=== PATIENT | female | born 1950 | race Caucasian/White ===

== ENCOUNTER 2024-08-07 13:05 | Emergency (ER) | payer MEDICARE, SELFPAY ==
[2024-08-07] VITALS (8 sets, daily range): BP systolic 161–185; BP diastolic 72–106; PULSE 86–125; RESP 14–16; TEMP 36.6; O2SAT 94–97
--- NOTE | 2024-08-07 13:15 | DI.RAD_ITS ---
Exam(s) XR WRIST LT COMPLETE EXAM: XR WRIST LT COMPLETE CLINICAL HISTORY: pain. TECHNIQUE: 2D digital imaging was performed. Three views. COMPARISON: No exams were available for comparison FINDINGS: BONES: Transverse fracture through the distal radial metaphysis with severe posterior angulation and half shaft width displacement. There are comminuted fragments around the main fracture site as well as extension to the articular surface. The distal ulna and carpal bones appear intact. No bony dest ructive lesion is seen. JOINTS: The carpal bones are normally aligned. Severe degenerative changes at the 1st carpal metaca rpal joint. SOFT TISSUE: swelling IMPRESSION: Comminuted intra-articular fracture of the distal radius with posterior displacement and angulation. DATA REPOSITORY: RADIATION DOSE DELIVERED:
--- OUTSIDE RECORDS SUMMARY | 2024-08-07 13:34 | XMS_ITS | Encounter Summary ---
Author Organization [facility] Address [address] [place] [address] Care Team Providers Care [facility] Name Role Phone Clint Miramontes MD Primary Care Provider [phone] Reason for Visit * Reason Onset Date Comments Other 07/26/2024 Encounter Details Date Type Department Care Team (Late st Contact Info) Description 07/26/2024 Telephone [facility] Orthopedics & Sport Medicine [address] [place] [address] Reema Peoples PA-C [address] [facility] [address] [place], [place] [phone] Other Social History Tobacco Use Types Packs/Day Years Used Date Smoking Tobacco: Former Cigarettes 1 18.7 1 964 - 07/03/1982 Smokeless Tobacco: Never Comments:1981 quit Alcohol Use Standard Drinks/Week Comments No 0 (1 standard drink = 0.6 oz pur e alcohol) Overall Financial Resource Strain (CARDIA) Answe r Date Recorded How hard is it for you to pa y for the very basics like food, housing, medical care, and heating? Somewhat hard 11/07/2023 PHQ-2 Answer Date Recorded PHQ-2 SUBTOTAL 0 11/07/2023 Hunger Vital Sign Answer Date Recorded Within the past 12 months, y ou worried that your food would run out before you got the money to buy more. Never true 11/07/19 24 Within the past 12 months, t he food you bought just didn't last and you didn't have money to get more. Never true 11/07/2023 PRAPARE - Transportation Answer Date Re corded In the past 12 months, has l ack of transportation kept you from medical appointments or from getting medications? No 04/2024 In the past 12 months, has l ack of transportation kept you from meetings, work, or from getting things needed for daily living? No 11/07/2023 Housing Stability Vital Sign Answer Shubham e Recorded In the last 12 months, was t here a time when you were not able to pay the mortgage or rent on time? No 11/07/2023 In the last 12 months, how many places have you lived? 1 11/07/2023 In the last 12 months, was t here a time when you did not have a steady place to sleep or slept in a long term (including now)? No 11/07/2023 Interpersonal Safety Answer Date Record ed How often does anyone, minh bettencourt family, hit, punch or physically hurt you? 11/07/2023 How often does anyone, minh bettencourt family, insult, scream, curse or threaten to hurt you? 11/07/2023 Sex and Gender Information Value Date Recorded Sex Assigned at Not on file Gender Identity Female 03/09/2020 13:07 EDT Sexual Orientation Not on file documented as of this encounter Functional Status Functional Status Response Date of Assess ment Because of a physical, menta l, or emotional condition, does this person have difficulty doing errands alone such as visiting a doctor's office or shopping? No 05/15/2017 Cognitive Status Response Date of Assessm ent Because of a physical, menta l, or emotional condition, does this person have serious difficulty concentrating, remembering, or making decisions? No 05/15/2017 documented as of this encounter Miscellaneous Notes * Telephone Encounter - Liseth Painting - 07/26/2024 1033 EDT I called and left a voicemail for the patient to call to schedule follow up * Telephone Encounter - Christina Mcgrath RN - 07/26/2024 0958 EDT Per TE from 07/13 pt carla follow up with HH or one of the total joint surgeons per her preference after the MRI. So please schedule with HH, CB, or SG per pts preference. * Telephone Encounter - Liseth Painting - 07/26/2024 0948 EDT Patient has an MRI scheduled. Does the patient need a follow up or are you going to call the patient ? Thank you documented in this encounter Plan of Treatment Upcoming Encounters Date Type Department Care Team (Late st Contact Info) Description 08/10/2024 16:00 EDT Appointment [facility] MRI [address] [place], [place] [phone] 08/16/2024 14:00 EDT EMILIA [facility] OBGYN Ultrasound [address] [place] [phone] 08/29/2024 14:00 EDT Office Visit [facility] OBGYN [address] [place] [address] [phone] Ness Vilchis MD [address] [place] [address], [address] [place] [phone] 08/31/2024 16:00 EDT Office Visit [facility] Orthopedics & Sport Medicine [address], [address] [place], [place] [phone] Reema Peoples PA-C [address] [facility] [address] [place], [place] [phone] 09/01/2024 9:30 EDT Office Visit [facility] Rheumatology [address] [place] [address] [phone] Lin Grider MD [address] [place] [address] [facility] [address] [place] [phone] 11/08/2024 14:00 EST Office Visit [facility] Adult Hematology & Oncology [facility] [place] [address] Luz Maria Peter, GABRIEL [address] [facility], [facility] [address] [place] [phone] 11/22/2024 10:15 EST Office Visit [facility] Family Medicine - [facility] [address] [place] [address] [phone] Clint Miramontes MD [address] [place] [phone] documented as of this encounter Visit Diagnoses Not on filedocumented in this encounter Care Teams Hospital [facility] Relationship Specialty Start Date End Date Clint Miramontes MD [address] [place] [phone] PCP - General 08/23/19 documented as of this encounter
--- OUTSIDE RECORDS SUMMARY | 2024-08-07 13:34 | XMS_ITS | Clinical Summary ---
Author Organization [facility] Address [address] [place] [address] Care Team Providers Care Support Architect Name Role Phone Clint Miramontes MD Primary Care Provider [phone] Allergies Active Allergy Reactions Criticality Noted Date Comments Rosuvastatin Rash 05/15/2017 Other - See Comments High 06/05/2011 Wasp stings- swollen local reactions, no throat swelling Pravastatin Rash 05/15/2017 Medications Medication Sig Dispensed Refills Start Date End Date Status cholecalciferol, Vitamin D3, 25 mcg (1,000 unit) tablet Take 2 Tablets by mouth daily. Active inhalational spacing device (E-Z SPACER) Inhale 1 Device as directed 2 times daily. For use with Flovent inhaler. Dx: J44.9. 1 Device 01/20/2020 Active aspirin 81 mg EC tablet Take 1 Tablet by mouth daily. Active diazePAM (VALIUM) 2 mg tablet 1 tab PO bid PRN fying. 6 Tablet 3 04/03/2023 Active lovastatin (MEVACOR) 40 mg tablet TAKE TWO TABLETS BY MOUTH EVERY DAY 180 Tablet 3 09/11/2023 Active LORazepam (ATIVAN) 1 mg tablet TAKE ONE TABLET BY MOUTH AT BEDTIME NEEDED FOR ANXIETY MAXIMUM DAILY DOSE = 1 30 Tablet 3 04/25/2024 Active albuterol sulfate 90 mcg/actuation aero powdr breath act w/sensor Inhale 1 Puff as directed 6 times daily. 1 Each 3 05/19/2024 Active Additional Information Patient not taking.Reported on 07/05/2024 beclomethasone HFA (QVAR REDIHALER) 80 mcg/actuation inhaler Inhale 1 Puff as directed 2 times daily. 10.6 g 3 05/19/2024 Active Additional Information Patient not taking.Reported on 07/05/2024 Active Problems Problem Noted Date Diagnosed Date Intramural leiomyoma of uterus 07/19/2021 Other ovarian cyst, left side 07/19/2021 Aneurysm ([facility]) 10/06/2019 Chronic obstructive pulmonary disease ([facility]) 10/06/2019 Female bladder prolapse 10/06/2019 Impaired glucose tolerance 10/06/2019 LBBB (left bundle branch block) 10/06/2019 Age-related osteoporosis wit hout current pathological fracture 10/06/2019 Sleep disturbance 10/06/2019 Vitamin D deficiency 10/06/2019 Cerebral aneurysm, nonruptured 06/04/2010 Overview: Right PCOM s/p coil embolization 06/03/2010 Mixed hyperlipidemia 06/04/2010 Overview: On Crestor 06/2010 Anxiety 06/04/2010 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 ([facility]) 06/04/2010 Overview: 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 Clinical stage IIIa disease with numerous small lymph nodes above and below the diaphragm. No treatment at this time. Encounters Date Type Department Care Team Description 07/26/2024 Telephone [facility] Orthopedics & Sport Medicine [address], [address] [place] [address] Reema Peoples PA-C Other 07/13/2024 Telephone [facility] Orthopedics & Sport Medicine [address], [address] [place] [address] Reema Peoples PA-C Other 07/11/2024 Orders Only [facility] Rheumatology [address] [place] [address] Lin Grider MD 07/05/2024 14:00 EDT Office Visit [facility] Adult Hematology & Oncology [address] [place] [address] Luz Maria Peter NP History of lymphoma (Primary Dx) 07/05/2024 12:51 EDT - 07/05/2024 23:59 EDT Hospital Encounter [facility] Mammography [address] [place] [address] Encounter for screening mammogram for malignant neoplasm of breast Discharge Disposition: Home or Self Care 06/29/2024 Telephone [facility] Orthopedics & Sport Medicine [address], [address] [place], [place] [phone] Reema Peoples PA-C Other 06/17/2024 Telephone [facility] Orthopedics & Spine Medicine [address], [address] [place] [address] Reema Peoples PA-C Results 06/13/2024 15:00 EDT Office Visit [facility] Orthopedics & Sport Medicine [address] [place] [address] Reema Peoples PA-C Pain and swelling of left knee (Primary Dx) 05/19/2024 9:45 EDT [facility] [address] [address] Clint Miramontes MD 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) (Primary Dx); Primary osteoarthritis of left knee; Chronic obstructive pulmonary disease, unspecified COPD type (HCC-CMS) 05/19/2024 Telephone [facility] [address] [phone] Luz Maria Hdz, ATTILA Prior Auth, Medication from Last 3 Months Immunizations Name Administration Dates Next Due Covid-19 mRNA-LNP Va ccine (MODERNA COVID-19) PF 0.5 mL IM (12 yrs+) 11/19/2023 Covid-19 mRNA-LNP Bivalent V accine (PFIZER BIVALENT VACCINE) PF 0.3 mL IM (12 yrs+) 08/19/2022 Covid-19 subunit, rS-nanoparticle+Matrix-M1 Adjuvant Vaccine (NOVAVAX COVID-19) PF 0.5 mL IM (12 yrs+) 04/23/2023 Influenza Vaccine =>3yo Split IM 017,08/14/2016,07/08/2014,08/09,08/28/2012 Influenza Vaccine High Dose (FLUZONE HIGH DOSE) PF 0.7 ml IM (65 yrs+) 08/30/2022,08/28/2020,09/20/2018 Influenza Vaccine Quad (AFLU NIDA) PF 0.5 ml IM (3 yrs+) 08/18/2019,08/09/2015 Influenza Vaccine Quad High Dose (FLUZONE HIGH DOSE) PF 0.7 ml IM (65 yrs+) 08/13/2023 Pneumococcal Conjugate Vacci ne 13-Valent (PCV13) (PREVNAR-13) 0.5 mL IM (6 wks+) 10/19/2017 Pneumococcal Polysaccharide (PPSV23) Vaccine (PNEUMOVAX-23) =>2YO SQ/IM 10/03/2010 Tdap Vaccine =>7YO IM 11/02/2023,06/08/2013 Surgical History Surgery Date Site/Laterality Comments TONSILLECTOMY HERNIA REPAIR left groin LYMPH NODE BIOPSY left neck & node removal VAGINAL PROLAPSE REPAIR Medical History Medical History Date Comments Psychiatric problem anxiety Cancer ([facility]) lymphoma-marry marginal Coil insertion 06/2010 PCOM aneurysm Inguinal lymphadenopathy Chronic obstructive pulmonary disease ([facility]) 10/06/2019 Osteoporosis 10/06/2019 Aneurysm ([facility]) Hypercholesteremia Aneurysm of coronary artery 2009 inte rnal coronary artery Colon polyp Mental disorder Family History Medical History Relation Comments Hypertension Brother Hypertension Father Stroke Maternal Grandmother Pancreatic Cancer Maternal Uncle 1 Diabetes Maternal Uncle 2 Diabetes Mother Hypertension Mother Lung Cancer Mother Lymphoma Mother Breast Cancer Paternal Aunt 1 Liver Cancer Paternal Aunt 2 Breast Cancer Paternal Grandmother Stomach Cancer Paternal Uncle Relation Status Comments Brother Alive Father Maternal Grandmother Maternal Uncle 1 Maternal Uncle 2 Mother triple bypass Paternal Aunt 1 Paternal Aunt 2 Paternal Grandmother Paternal Uncle Social History Tobacco Use Types Packs/Day Years Used Date Smoking Tobacco: Former Cigarettes 1 18.7 1 964 - 07/03/1982 Smokeless Tobacco: Never Tobacco Cessation:Counseling Given: Not Answered Comments:1981 quit Alcohol Use Standard Drinks/Week Comments [...] place to sleep or slept in a skilled nursing (including now)? No 11/07/2023 Interpersonal Safety Answer Date Record ed How often does anyone, inclyimi bettencourt family, hit, punch or physically hurt you? 11/07/2023 How often does anyone, inclyimi bettencourt family, insult, scream, curse or threaten to hurt you? 11/07/2023 Sex and Gender Information Value Date Recorded Sex Assigned at Not on file Gender Identity Female 03/09/2020 13:07 EDT Sexual Orientation Not on file Obstetrics History Para Term AB IAB SAB Ectopic Multiple Livin g Live Births 2 2 2 2 2 Date Outcome GA Total Labor Labor/2nd/3rd Weight Sex Type Anes PTL Earline A1 A5 Name Clin 1973 Term 3374 g (7 lb 7 oz) F Vag-S pont Living 1980 Term 4196 g (9 lb 4 oz) M Vag-S pont Living Last Filed Vital Signs Vital Sign Reading Time Taken Comments Blood Pressure 138/78 07/05/2024 1340 EDT Pulse 65 07/05/2024 1340 EDT Temperature 36.2 ??C (97.2 ??F) 05/19/2024 0941 EDT Respiratory Rate 18 05/19/2024 0941 EDT Oxygen Saturation 99% 07/05/2024 1340 EDT Inhaled Oxygen Concentration - - Weight 42.9 kg (94 lb 9.6 oz) 07/05/2024 1340 ED T Height 146.1 cm (4' 9.5) 07/05/2024 1310 EDT Body Mass Index 20.12 07/05/2024 1310 EDT Plan of Treatment Upcoming Encounters Date Type Department Care Team (Late st Contact Info) Description 08/10/2024 16:00 EDT Appointment [facility] MRI [address] [place], [place] [phone] 08/16/2024 14:00 EDT EMIL[facility] OBGYN Ultrasound [address] [place] [phone] 08/29/2024 14:00 EDT Office Visit [facility] OBGYN [address] [place] [phone] Ness Vilchis MD [address] [place] [address], [address] [place] [phone] 08/31/2024 16:00 EDT Office Visit [facility] Orthopedics & Sport Medicine [address] [place], [place] [phone] Reema Peoples PA-C [address] [facility] [address] [place], [place] [phone] 09/01/2024 9:30 EDT Office Visit [facility] Rheumatology [address] [place], [place] [phone] Lin Grider MD [address] [place] [address] [address] [place] [address] 11/08/2024 14:00 EST Office Visit [facility] Adult Hematology & Oncology [facility] [address] [place], [place] [phone] Luz Maria Peter, GABRIEL [address] [facility], [facility] [address] [place] [phone] 11/22/2024 10:15 EST Office Visit [facility] Family Medicine - [facility] [address] [place], [place] [phone] Clint Miramontes MD [address] [place] [address] Health Maintenance Due Date Last Done Comments Copd Action Plan 1949 Lung Function Test (Spirometry) 1949 Shingles Immunization (1 of 2) 1968 Cologuard (Colon Cancer Screening) 1994 FIT Test (Colon Cancer Screening) 1994 Sigmoidoscopy (Colon Cancer Screening) 1994 RSV Immunization ( o r 60+ Years) (1 - 1-dose 60+ series) 2009 Pneumococcal Immunization (6 5+) (3 of 3 - PPSV23 or PCV20) 12/14/2017 10/19/2017, 10/03/2010 COVID-19 Vaccine (4 - 2023-2 5 season) 2024 11/19/2023, 04/23/2023, 08/19/2022 Influenza Immunization (Adul t) (#1) 2024 08/13/2023, 08/30/2022, 08/28/2020, Additional history exists Social Determinants Of Healt h (SDOH) 11/07/2024 11/07/2023, 04/21/2022 Depression Screening 11/19/2024 11/19/2023, 11/07/19 24 Fall Risk Screening 11/19/2024 11/19/2023, 08/18/2022, 04/21/2022, Additional history exists Preventive Care Visit 11/19/2025 11/19/2023 Lipid Profile Screening (Cholesterol) 06/29/2028 06/29/2023, 03/25/2023, 11/21/2021, Additional history exists Colonoscopy (Colon Cancer Screening) 09/20/2029 09/20/2019, 03/14/2011 Colorectal Cancer Screening 09/20/2029 Tetanus (Adult) Immunization 11/02/2033 11/02/2023, 06/08/2013 Hepatitis C Screen Completed 2010 Advance Directive Completed 04/21/2022 Osteoporosis Screening Completed 3, 06/14/2021, 06/22/2019, Additional history exists Pertussis (Adult) Immunization Completed 11/02/2023 , 06/08/2013 Medical Devices Implanted Type Area Travel Assistant Device Identifier Shelf Expiration Date Model / Serial / Lot Gdc Coils-Mr Cond To 1.5/3t Description:Brain coils 06/21 10, GDC x 5, Trufill x 7, all safe to 3T GW GDC: A patient with Hartsel Detachable Coils can be safely scanned immediately after placement of the coils, under the following conditions: Static magnetic field of 1.5 or 3.0 Ross[place]. Spatial gradient field up to 2500 Gauss/cm (25 Rossana/m) Normal operational mode for gradients and SAM (maximum whole body averaged specific absorption rate (SAM) of lower than 2.0 W/kg and maximumhead SAM of lower than 3.2 W/kg) for a total active MR scan time (with RFexposure) of 15 minutes or less per scan sequence (per PushToTest; RD 02/01/20) Trufill: the Trufill DCS Orbit Detachable Coil has been shown to be MRI safe at field strengths of 3.0 Ross[place] or less, and a maximum whole body averaged specific absorption rate (SAM) of 2.0W/kg for 20 min of MRI. (per PushToTest; RD 02/01/20) Procedures Procedure Name Priority Date/Time Associated Diagnosis Comments COMPLETE BLOOD COUNT AND DIFFERENTIAL Routine 07/05/2024 13:52 EDT History of lymphoma COMPREHENSIVE METABOLIC PANEL (CMP) Routine 07/05/2024 13:52 EDT History of lymphoma LDH Routine 07/05/2024 13:52 EDT History of lymphoma MA BREAST SCREENING ELO BILATERAL Routine 07/05/2024 13:18 EDT Encounter for screening mammogram for malignant neoplasm of breast PATHOLOGY REVIEW FLUID OTHER Today 06/13/2024 15:18 EDT Pain and swelling of left knee SYNOVIAL FLUID DIFFERENTIAL Today 06/13/2024 15:18 EDT Pain and swelling of left knee LYME DISEASE, PCR, SYNOVIAL FLD Routine 06/13/2024 15:18 EDT Pain and swelling of left knee SYNOVIAL FLUID CELL COUNT Routine 06/13/2024 15:18 EDT Pain and swelling of left knee CRYSTAL ANALYSIS FLUID ONLY Routine 06/13/2024 15:18 EDT Pain and swelling of left knee SYNOVIAL CELL COUNT Routine 06/13/2024 1 5:18 EDT Pain and swelling of left knee LARGE JOINT INJECTION/ARTHROCENTE SIS Routine 06/13/2024 15:00 EDT Pain and swelling of left knee LIPID PROFILE (INCLUDES CHOLESTEROL, TRIGLYCERIDES, HDL, LDL) Routine 06/29/2023 16:17 EDT Weight loss Elevated pancreatic enzyme DXA BONE DENSITY Routine 06/18/2023 14:4 6 EDT Age-related osteoporosis without current pathological fracture COLONOSCOPY PROCEDURE Routine 09/20/2019 HEPATITIS C AB W REFLEX TO HCV RNA BY PCR Routine 2010 from Last 3 Months or Most Recently Relevant to Health Maintenance Results * (ABNORMAL) COMPLETE BLOOD COUNT AND DIFFERENTIAL (07/05/2024 13:52 EDT) WBC 6.16 4.00 - 12.40 K/cmm 07/05/2024 13:59 EDT [facility] RBC 4.63 3.86 - 5.04 M/cmm 07/05/2024 13:59 EDT [facility] Hemoglobin 13.5 11.6 - 15.2 g/dL 07/05/2024 13:59 EDT [facility] HCT 41.7 34.9 - 44.4 % 07/05/2024 13:59 EDT [facility] MCV 90 81 - 98 fL 07/05/2024 13:59 EDT [facility] MCH 29.2 26.7 - 33.3 pg 07/05/2024 13:59 EDT [facility] MCHC 32.4 32.1 - 35.9 g/dL 07/05/2024 13:59 EDT [facility] RDW-CV 13.0 <14.7 % 07/05/2024 13:59 EDT [facility] RDW-SD 43.2 <50.4 fl 07/05/2024 13:59 EDT [facility] PLT 209 141 - 377 K/cmm 07/05/2024 13:59 EDT [facility] MPV 8.8(L) 9.5 - 12.7 fL 07/05/2024 13:59 EDT [facility] % Neutrophils 60.7 % 07/05/2024 13:59 EDT [facility] % Lymphocytes 29.4 % 07/05/2024 13:59 EDT [facility] % Monocytes 7.1 % 07/05/2024 13:59 EDT [facility] % Eosinophils 1.8 % 07/05/2024 13:59 EDT [facility] % Basophils 0.8 % 07/05/2024 13:59 EDT [facility] % Immature Grans 0.2 <0.9 % 07/05/20 13:59 EDT [facility] Absolute Neutrophils 3.74 2.20 - 8.85 K/cmm 07/05/2024 13:59 EDT [facility] Absolute Lymphocytes 1.81 1.09 - 3.30 K/cmm 07/05/2024 13:59 EDT [facility] Absolute Monocytes 0.44 0.10 - 0.80 K/cmm 07/05/2024 13:59 EDT [facility] ONCOLOGY [facility] Absolute Eosinophils 0.11 0.03 - 0.61 K/cmm 07/05/2024 13:59 EDT [facility] ABS Basophils 0.05 0.01 - 0.11 K/cmm 07/05/2024 13:59 EDT [facility] Absolute Immature Grans 0.01 0.00 - 0.06 K/cmm 07/05/2024 13:59 EDT [facility] Type of Differential: Auto 07/05/2024 13:59 EDT [facility] Blood VENOUS BLOOD / Unknown Venipuncture / Unknown 07/05/2024 13:52 EDT 07/05/2024 13:52 EDT Luz Maria Peter NP PACKAGES & DNA PRO BE ORDERABLES [facility] [place] Office Building [address], [address] * LDH (07/05/2024 13:52 EDT) LDH 219 120 - 246 U/L 07/05/2024 17:48 EDT [facility] Blood VENOUS BLOOD / Unknown Venipuncture / Unknown 07/05/2024 13:52 EDT 07/05/2024 13:52 EDT Luz Maria Peter VACUUM FORMING MACHINE OPERATOR CHEMISTRY & BLOOD GAS ORDERABLES [facility] [address] [place] [address] * COMPREHENSIVE METABOLIC PANEL (CMP) (07/05/2024 13:52 EDT) Sodium 138 136 - 145 mmol/L 07/05/2024 18:08 [facility] Potassium 4.3 3.5 - 5.0 mmol/L 07/05/2024 18:08 [facility] Chloride 101 96 - 110 mmol/L 07/05/2024 18:08 [facility] CO2 Total 30 22 - 32 mmol/L 07/05/2024 18:08 [facility] Glucose 76 70 - 99 mg/dl 07/05/2024 18:08 [facility] BUN 15 10 - 26 mg/dL 07/05/2024 18:08 [facility] Creatinine 0.66 0.52 - 1.04 mg/dL 07/05/2024 18:08 [facility] eGFR 91 >60 mL/min/1.7 3m2 07/05/2024 18:08 [facility] Total Protein 7.2 6.3 - 8.2 g/dL 07/05/2024 18:08 [facility] Albumin 4.7 3.4 - 4.9 g/dL 07/05/2024 18:08 [facility] Alkaline Phosphatase 56 38 - 126 U/L 07/05/2024 18:08 [facility] AST 24 15 - 46 U/L 07/05/2024 18:08 [facility] ALT 17 <35 U/L 07/05/2024 18:08 [facility] Bilirubin, Total 0.8 <1.4 mg/dL 07/05/20 24 18:08 [facility] Calcium 9.5 8.5 - 10.5 mg/dL 07/05/2024 18:08 [facility] Albumin/Globulin Ratio 1.9 1.0 - 2.5 07/05/2024 18:08 [facility] Anion Gap 7 5 - 14 mmol/L 07/05/2024 18:08 [facility] Blood VENOUS BLOOD / Unknown Venipuncture / Unknown 07/05/2024 13:52 EDT 07/05/2024 13:52 EDT Luz Maria Montaño [place] RIOS CHEMISTRY & BLOOD GAS ORDERABLES [facility] [address] [place] [address] * MA BREAST SCREENING ELO BILATERAL (07/05/2024 13:18 EDT) Anatomical Region Laterality Modality Breast Bilateral Mammography 07/06/2024 9:05 EDT Impressions 07/06/2024 9:05 EDT Negative, no evidence of malignancy. RECOMMENDATION: Routine screening mammography is recommended. OVERALL ASSESSMENT: BI-RADS 1: Negative These results will be communicated to your patient via a lay letter from Radiology. If any additional imaging is needed we will contact your patient directly. [address] [address] [id number] Narrative 07/06/2024 9:05 EDT MA BREAST SCREENING ELO BILATERAL ??07/05/2024 1:08 PM History: bilateral screening Comparison: ??Comparison has been made to previous images . ? Technique: Routine 3D tomosynthesis with synthesized 2D views with CAD Breast Composition: There are scattered areas of fibroglandular density. Bilateral Breast Findings: ??No significant masses, calcifications or other abnormalities are seen. Resulting Agency Comment [id number] Procedure Note Reji Carroll MD - 07/06/2024 MA BREAST SCREENING ELO BILATERAL 07/05/2024 1:08 PM History: bilateral screening Comparison: Comparison has been made to previous images . Technique: Routine 3D tomosynthesis with synthesized 2D views with CAD Breast Composition: There are scattered areas of fibroglandular density. Bilateral Breast Findings: No significant masses, calcifications or otherabnormalities are seen. IMPRESSION Negative, no evidence of malignancy. RECOMMENDATION: Routine screening mammography is recommended. OVERALL ASSESSMENT: BI-RADS 1: Negative These results will be communicated to your patient via a lay letter fromRadiology. If any additional imaging is needed we will contact yourpatient directly. [address] [address] [id number] Clint Miramontes MD [facility] MAMMOGRAPHY PRABHU CASPER * LYME DISEASE, PCR, SYNOVIAL FLD (06/13/2024 15:18 EDT) SPECIMEN SOURCE Left knee 18:38 EDT [facility] B. burgdorferi PCR Negative Negative 2023 18:38 EDT [facility] B. mayonii PCR Negative Negative 06/16/2024 18:38 EDT [facility] B. Garinii/B.afzelii PCR Negative Negative 06/16/2024 18:38 EDT [facility] LYME FLUID COMMENT SEE NOTE 2023 18:38 EDT [facility] Comment: If clinical features of illness are highly indicative of Lyme neuroborreliosis, additional serological testing would be recommended. ADDITIONAL INFORMATION This test was developed and its performance characteristics determined by [facility] in a manner consistent with CLIA requirements. This test has not been cleared or approved by the U.S. Food and Drug Administration. Test Performed by: [address] [address] Aerospace Assembler: Lizette Mendez Ph.D.; CLIA# [id number] Fluid SYNOVIAL FLUID / Unknown 06/13/2024 15:18 EDT 06/13/2024 15:18 EDT Reema Peoples PA-C CHEMISTRY & BLOOD GAS ORDERABLES [address] [address] * PATHOLOGY REVIEW FLUID OTHER (06/13/2024 15:18 EDT) Path Review Fluid, other SYNOVIAL FLUID REVIEW No malignant cells identified. Cells counted as others are compatible with synovial lining cells. ??Agree with the reported differential showing mixed acute and chronic inflammation. Darrin Borrego MD 06/14/2024 11:55 06/14/2024 11:56 EDT [facility] Fluid SYNOVIAL FLUID / Unknown 06/13/2024 15:18 EDT 06/13/2024 15:18 EDT Reema Peoples PA-C HEMATOLOGY & PF4 ORDERABLES Performing Organization Address City/[facility]/ZIP Co de Phone Number [facility] [address] [place] [address] * (ABNORMAL) SYNOVIAL FLUID DIFFERENTIAL (06/13/2024 15:18 EDT) Neutrophils, Synovial Fluid 24 10 - 24 % 06/13/2024 18:43 EDT [facility] Lymphocytes, Synovial Fluid 55(H) 10 - 20 % 06/13/2024 18:43 EDT [facility] Glynn/Macro Synovial Fluid 20(L) 55 - 75 % 06/13/2024 18:43 EDT [facility] Other Cells, Synovial fluid 1 % 06/13/2024 18:43 EDT [facility] Fluid SYNOVIAL FLUID / Unknown 06/13/2024 15:18 EDT 06/13/2024 15:18 EDT Reema Peoples PA-C GEN LAB UNIT COLLECT ORDERABLES Performing Organization Address City/[facility]/ZIP Co de Phone Number [facility] [address] [place] [phone] * (ABNORMAL) SYNOVIAL FLUID CELL COUNT (06/13/2024 15:18 EDT) RBC, Synovial Fluid 10,000 /cmm 06/13/2024 18:10 EDT [facility] Nucleated Cells 2,654(H) <=200 /cmm 06/13/2024 18:10 EDT [facility] Comment, Synovial Fluid Yellow Slightly bloody 06/13/2024 18:10 EDT [facility] Fluid SYNOVIAL FLUID / Unknown 06/13/2024 15:18 EDT 06/13/2024 15:18 EDT Reema Peoples PA-C GEN LAB UNIT COLLECT ORDERABLES Performing Organization Address [facility] Co de Phone Number [facility] [address] [place] [address] * CRYSTAL ANALYSIS FLUID ONLY (06/13/2024 15:18 EDT) Crystals Both intracellular and extracellular calcium pyrophosphate crystals present 06/13/2024 18:53 EDT [facility] Fluid SYNOVIAL FLUID / Unknown 06/13/2024 15:18 EDT 06/13/2024 15:18 EDT Reema Peoples PA-C GEN LAB UNIT COLLECT ORDERABLES Performing Organization Address [facility] de Phone Number [facility] [address] [place] [address] * [place] ARTHROCENTESIS ASPIR&/INJ MAJOR JT/BURSA W/O US (06/13/2024 15:00 EDT) Narrative [facility] POINT OF CARE - 06/13/2024 15:00 EDT Reema Peoples PA-C ? 06/13/2024 15:32 Large Joint Injection/Arthrocentesis: L knee on 06/13/2024 15:00 Indications: pain Details: 22 G needle, anterolateral approach Medications: 40 mg triamcinolone acetonide 40 mg/mL; 4 mL lidocaine (PF) 10 mg/mL (1 %) Aspirate: 30 mL yellow and clear Outcome: tolerated well, no immediate complications Procedure, treatment alternatives, risks and benefits explained, specific risks discussed. Consent was given by the patient. Immediately prior to procedure a time out was called to verify the correct patient, procedure, equipment, cell support operator and site/side marked as required. Patient was prepped and draped in the usual sterile fashion. Reema Peoples PA-C PROCEDURE/[place] NOR SURGICAL ORDERABLES Performing Organization Address [facility] Co de Phone Number [facility] POINT OF CARE * (ABNORMAL) LIPID PROFILE (INCLUDES CHOLESTEROL, TRIGLYCERIDES, HDL, LDL) (06/29/2023 16:17 EDT) Cholesterol 175 <200 mg/dL 06/30/2023 17:49 EDT [facility] Comment:Note that therapeuti c goals will differ between patients based on cardiac risk factors and current medical therapy. HDL 47(L) >=50 mg/dl 06/30/2023 17:49 EDT [facility] Comment:Note that therapeuti c goals will differ between patients based on cardiac risk factors and current medical therapy. LDL, Calculated 102 <160 mg/dL 17:49 EDT [facility] Comment:Note that therapeuti c goals will differ between patients based on cardiac risk factors and current medical therapy. Triglyceride 131 <=150 mg/dL 06/30/2023 17:49 EDT [facility] Comment:Note that therapeuti c goals will differ between patients based on cardiac risk factors and current medical therapy. Chol/HDL Ratio 3.7 See Note 06/30/2023 17:49 EDT [facility] Comment: NOTE: Desirable Ratio = <4.1 Patient At Risk Ratio = >5.0(Males) ?>6.0(Females) Non HDL Cholesterol 128 <160 mg/dL 06/30/2023 17:49 EDT [facility] Comment:Note that therapeuti c goals will differ between patients based on cardiac risk factors and current medical therapy. Blood VENOUS BLOOD / Unknown Venipuncture / Unknown 06/29/2023 16:17 EDT 06/29/2023 16:17 EDT Clint Miramontes MD CHEMISTRY & BLOOD GA S ORDERABLES [facility] [address] [place] [address] * DXA BONE DENSITY (06/18/2023 14:46 EDT) Anatomical Region Laterality Modality DEXA Narrative 06/21/2023 19:42 EDT Table formatting from the original result was not included. Indication: osteopenia; monitoring treatment; height loss; history of glucocorticoids; cancer; asthma or emphysema; Accession number: [id number] Clinical Information Provided by Patient: Has taken Glucocorticoids ?? Is being treated for osteoporosis ?? Has used the following medications: Boniva (i.e. ibandronate), Reclast (i.e. zoledronate), Vitamin D, Calcium Has the following medical conditions: Asthma or Emphysema, Cancer, Lymphoma Patient maximum height was 59.75 Menopause Age 50 Drinks caffeinated beverages ?? Onset of menses at age 12 Number of children 2 Bone Density: Exam date 06/18/2023 Region BMD (g/cm2) T-score Z-score Classification AP Spine(L1-L4) 0.875 -1.6 ??0.8 Osteopenia Femoral Neck(Left) 0.509 -3.1 -1.0 Osteoporosis Total Hip(Left) 0.681 -2.1 -0.4 Osteopenia Femoral Neck(Right) 0.603 -2.2 -0.2 Osteopenia Total Hip(Right) 0.754 -1.5 ??0.2 Osteopenia Femoral Neck Mean 0.556 -2.6 -0.6 Osteoporosis Total Hip Mean 0.717 -1.8 -0.1 Osteopenia World Health Organization criteria for BMD impression classify patients as Normal (T-score at or above -1.0), Osteopenia (T-score between -1.0 and -2.5), or Osteoporosis (T-score at or below -2.5). ?? 10-year Fracture Risk: FRAX not reported because: ??Some T-score for Spine Total or Hip Total or Femoral Neck at or below -2.5 ??Treated for osteoporosis Previous Exams: ?? Region Exam Date Age BMD (g/cm2) T-score BMD Change vs. Baseline BMD Change vs. Previous AP Spine (L1-L4) 06/18/2023 73 0.875 -1.6 0.088 (11.2%)* 0.047 (5.7%)* 06/13/2021 71 0.828 -2.0 0.041 (5.2%)* -0.028 (-3.2%)* 06/22/2019 69 0.855 -1.7 0.068 (8.7%)* 0.072 (9.2%)* 02/19/2016 65 0.784 -2.4 -0.003 (-0.4%) -0.003 (-0.4%) 07/08/2011 61 0.787 -2.4 ?? Total Hip(Left) 06/18/2023 73 0.681 -2.1 -0.041 (-5.7%)* -0.023 (-3.2%) 06/13/2021 71 0.704 -2.0 -0.019 (-2.6%) 0.014 (2.1%) 06/22/2019 69 0.690 -2.1 -0.033 (-4.5%)* 0.003 (0.5%) 02/19/2016 65 0.686 -2.1 -0.036 (-5.0%)* -0.036 (-5.0%)* 07/08/2011 61 0.723 -1.8 ?? Total Hip(Right) 06/18/2023 73 0.754 -1.5 -0.062 (-7.5%)* -0.013 (-1.7%) 06/13/2021 71 0.766 -1.4 -0.049 (-6.0%)* -0.049 (-6.0%)* 06/22/2019 69 0.815 -1.0 ?? *Denotes significance at 95% confidence level, LSC for AP Spine = 0.022 g/cm2, ??LSC for Total Hip = 0.027 g/cm2 ? Impression: The patient has osteoporosis, based on the Left Femoral Neck T-score. The patient has risk factors, including: history of glucocorticoid therapy. No significant bone loss was observed. Discussion: PATIENT UNDER TREATMENT WITH NO SIGNIFICANT BMD LOSS SINCE LAST EXAM. In an untreated patient, BMD typically declines with age. ??A lack of decline or gain is usually a sign that treatment is efficacious and fracture risk is reduced. It is important to ask patients whether they are taking their medications and to encourage continued and appropriate compliance with their osteoporosis therapies to reduce fracture risk. It is also important to review their risk factors and encourage appropriate calcium and vitamin D intakes, exercise, fall prevention and other lifestyle measures. *As indicated, always consider the FRAX assessment with all other relevant clinical risk factors. Follow-Up: Consider a repeat BMD and Vertebral Fracture Assessment (VFA) exam in 2 years or sooner if medically necessary, to reassess this patient's status. Reported by: ??Trent Burgess MD, on 06/18/2023 2:43:00 PM. Lin Grider MD IMG DEXA ORDERABLES * COLONOSCOPY PROCEDURE (09/20/2019) Colonoscopy Colonoscopy, External Comment:Normal, repeat in 10 yrs Anatomical Region Laterality Modality Endoscopy Historical Provider GI PROCEDURE PRABHU CASPER * HEPATITIS C AB W REFLEX TO HCV RNA BY PCR (2010) Hepatitis C Ab negative Blood VENOUS BLOOD / Unknown 2010 Historical Provider CHEMISTRY & BLOOD GAS ORDERABLES from Last 3 Months or Most Recently Relevant to Health Maintenance Advance Directives For more information, please contact: [phone] * Full Code (Latest Code Status on File) Date Activated Date Inactivated Comments 06/06/2011 9:46 06/06/2011 18:23 * Full Code Date Activated Date Inactivated Comments 06/03/2010 13:40 06/04/2010 14:18 Care Teams Support Architect Relationship Specialty Start Date End Date Clint Miramontes MD [address] [place] [id number] PCP - General 08/23/19
--- OUTSIDE RECORDS SUMMARY | 2024-08-07 13:34 | XMS_ITS | Referral Summary ---
Author Organization [facility] Address [address] [place] [address] Care Team Providers Care Oil Well Driller Name Role Phone Clint Miramontes MD Primary Care Provider [phone] Encounters Date Type Department Care Team Description 07/26/2024 Telephone [facility] Orthopedics & Sport Medicine [address] [place], [place] [phone] Reema Peoples PA-C Other 07/13/2024 Telephone [facility] Orthopedics & Sport Medicine [address] [place], [place] [phone] Reema Peoples PA-C Other 07/11/2024 Orders Only [facility] Rheumatology [address] [place] [address] Lin Grider MD 07/05/2024 12:51 EDT - 07/05/2024 23:59 EDT Hospital Encounter [facility] Mammography [address] [place] [address] Encounter for screening mammogram for malignant neoplasm of breast Discharge Disposition: Home or Self Care 07/05/2024 14:00 EDT Office Visit [facility] Adult Hematology & Oncology [address] [place] [address] Luz Maria Peter NP History of lymphoma (Primary Dx) 06/29/2024 Telephone [facility] Orthopedics & Sport Medicine [address], [address] [place] [address] Reema Peoples PA-C Other 06/17/2024 Telephone [facility] Orthopedics & Spine Medicine [address], [address] [place], [place] [address] Reema Peoples PA-C Results 06/13/2024 15:00 EDT Office Visit [facility] Orthopedics & Sport Medicine [address] [facility], [place] [phone] Reema Peoples PA-C Pain and swelling of left knee (Primary Dx) 05/19/[address] [address] Luz Maria Hdz RN Prior Auth, Medication 05/19/2024 9:45 EDT Office Visit [address] [address] Clint Miramontes MD 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 ([facility]) (Primary Dx); Primary osteoarthritis of left knee; Chronic obstructive pulmonary disease, unspecified COPD type ([facility]) from Last 3 Months Allergies Active Allergy Reactions Criticality Noted Date [...] Other ovarian cyst, left side 07/19/2021 Aneurysm ([facility]) 10/06/2019 Chronic obstructive pulmonary disease ([facility]) 10/06/2019 Female bladder prolapse 10/06/2019 Impaired glucose tolerance 10/06/2019 LBBB (left bundle branch block) 10/06/2019 Age-related osteoporosis wit hout current pathological fracture 10/06/2019 Sleep disturbance 10/06/2019 Vitamin D deficiency 10/06/2019 Cerebral aneurysm, nonruptured 06/04/2010 Overview: Right PCOM s/p coil embolization 06/03/2010 Mixed hyperlipidemia 06/04/2010 Overview: On Crestor 06/2010 Anxiety 06/04/2010 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 ([facility]) 06/04/2010 Overview: 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 Clinical stage IIIa disease with numerous small lymph nodes above and below the diaphragm. No treatment at this time. Immunizations Name Administration Dates Next Due Covid-19 [...] SQ/IM 10/03/2010 Tdap Vaccine =>7YO IM 11/02/2023,06/08/2013 Social History Tobacco Use Types Packs/Day Years [...] place to sleep or slept in a detention (including now)? No 11/07/2023 Interpersonal Safety Answer Date Record ed How often does anyone, lambertoyimi rut family, hit, punch or physically hurt you? 11/07/2023 How often does anyone, lambetroyimi rut family, insult, scream, curse or threaten to hurt you? 11/07/2023 Sex and Gender Information Value Date Recorded Sex Assigned at Not on file Gender Identity Female 03/09/2020 13:07 EDT Sexual Orientation Not on file Last Filed Vital Signs Vital Sign Reading [...] Body Mass Index 20.12 07/05/2024 1310 EDT Functional Status Functional Status Response Date of [...] concentrating, remembering, or making decisions? No 05/15/2017 Plan of Treatment Upcoming Encounters Date Type Department Care Team (Late st Contact Info) Description 08/10/2024 16:00 EDT Appointment [facility] MRI [address] [place] [address] 08/16/2024 14:00 EDT EMILIA [facility] OBGYN Ultrasound [address] [place] [address] 08/29/2024 14:00 EDT Office Visit [facility] OBGYN [address] [place] [address] Ness Vilchis MD [address] [place], [place] [address]A, [address] [place] [phone] 08/31/2024 16:00 EDT Office Visit [facility] Orthopedics & Sport Medicine [address] [place] [address] Reema Peoples, PA-C [address] [facility] [address] [place] [address] 09/01/2024 9:30 EDT Office Visit [facility] Rheumatology [address] [place] [phone] Lin Grider MD [address] [place] [address] [address] [place] [address] 11/08/2024 14:00 EST Office Visit [facility] Adult Hematology & Oncology [address] [place] [address] Luz Maria Peter, GABRIEL [address] [place], [place] [address] [address] [place] [address] 11/22/2024 10:15 EST Office Visit [facility] Family Medicine - [place] [address] [place] [address] Clint Miramontes MD [address] [place] [phone] Medical Devices Implanted Type Area Ancillary Services Manager Device Identifier Shelf Expiration Date Model / Serial / Lot Gdc Coils-Mr Cond To 1.5/3t Description:Brain coils 06/21 10, GDC x 5, Trufill x 7, all safe to 3T GW GDC: A patient with [place] Detachable Coils can be safely scanned immediately [...] minutes or less per scan sequence (per [employer]; RD 02/01/20) Trufill: the Trufill DCS Orbit Detachable Coil has been shown to be MRI safe at field strengths of 3.0 [place] or less, and a maximum whole body averaged specific absorption rate (SAM) of 2.0W/kg for 20 min of MRI. (per [employer]; RD 02/01/20) Procedures Procedure Name Priority Date/Time [...] 4.00 - 12.40 K/cmm 07/05/2024 13:59 EDT [facility] HEMATOLOGY & ONCOLOGY [facility] RBC 4.63 3.86 - 5.04 M/cmm 07/05/2024 13:59 EDT [facility] HEMATOLOGY & ONCOLOGY [facility] Hemoglobin 13.5 11.6 - 15.2 g/dL 07/05/2024 13:59 EDT [facility] HEMATOLOGY & ONCOLOGY [facility] HCT 41.7 34.9 - 44.4 % 07/05/2024 13:59 EDT [facility] HEMATOLOGY & ONCOLOGY [facility] MCV 90 81 - 98 fL 07/05/2024 13:59 EDT [facility] HEMATOLOGY & ONCOLOGY [facility] MCH 29.2 26.7 - 33.3 pg 07/05/2024 13:59 EDT [facility] HEMATOLOGY & ONCOLOGY [facility] MCHC 32.4 32.1 - 35.9 g/dL 07/05/2024 13:59 EDT [facility] & ONCOLOGY [facility] RDW-CV 13.0 <14.7 % 07/05/2024 13:59 EDT [facility] RDW-SD 43.2 <50.4 fl 07/05/2024 13:59 EDT [facility] & ONCOLOGY [facility] PLT 209 141 - 377 K/cmm 07/05/2024 13:59 EDT [facility] MPV 8.8(L) 9.5 - 12.7 fL 07/05/2024 13:59 T [facility] HEMATOLOGY & ONCOLOGY [facility] % Neutrophils 60.7 % 07/05/2024 13:59 T [facility] % Lymphocytes 29.4 % 07/05/2024 13:59 EDT [facility] HEMATOLOGY ONCOLOGY [facility] % Monocytes 7.1 % 07/05/2024 13:59 EDT [facility] HEMATOLOGY & ONCOLOGY [facility] % Eosinophils 1.8 % 07/05/2024 13:59 EDT [facility] HEMATOLOGY & ONCOLOGY [facility] % Basophils 0.8 % 07/05/2024 13:59 T [facility] & ONCOLOGY [facility] % Immature Grans 0.2 <0.9 % 07/05/20 13:59 T [facility] Absolute Neutrophils 3.74 2.20 - 8.85 K/cmm 07/05/2024 13:59 T [facility] HEMATOLOGY & ONCOLOGY [facility] Absolute Lymphocytes 1.81 1.09 - 3.30 K/cmm 07/05/2024 13:59 EDT [facility] Absolute Monocytes 0.44 0.10 - 0.80 K/cmm 07/05/2024 13:59 T [facility] & ONCOLOGY [facility] Absolute Eosinophils 0.11 0.03 - 0.61 K/cmm 07/05/2024 13:59 EDT [facility] ONCOLOGY [facility] ABS Basophils 0.05 0.01 - 0.11 K/cmm 07/05/2024 13:59 T [facility] & ONCOLOGY [facility] Absolute Immature Grans 0.01 0.00 - 0.06 K/cmm 07/05/2024 13:59 EDT [facility] HEMATOLOGY & ONCOLOGY [facility] Type of Differential: Auto 07/05/2024 13:59 EDT [facility] HEMATOLOGY & ONCOLOGY [facility] Blood VENOUS BLOOD / Unknown Venipuncture / Unknown 07/05/2024 13:52 EDT 07/05/2024 13:52 EDT Luz Maria Peter TAX RECORD CLERK PACKAGES & DNA PRO BE ORDERABLES [facility] HEMATOLOGY & ONCOLOGY [facility] Medical Office [address], [address] * LDH (07/05/2024 13:52 EDT) Pathologist [facility] LDH 219 120 - 246 U/L 07/05/2024 17:48 EDT LABORATORY SERVICES Blood VENOUS BLOOD / Unknown Venipuncture / Unknown 07/05/2024 13:52 EDT 07/05/2024 13:52 EDT Luz Maria Peter TAX RECORD CLERK CHEMISTRY & BLOOD GAS ORDERABLES [facility] [address] [place] [address] * COMPREHENSIVE METABOLIC PANEL (CMP) (07/05/2024 13:52 EDT) Sodium 138 136 - 145 mmol/L 07/05/2024 18:08 [facility] LABORATORY SERVICES Potassium 4.3 3.5 - 5.0 mmol/L 07/05/2024 18:08 [facility] LABORATORY SERVICES Chloride 101 96 - 110 mmol/L 07/05/2024 18:08 [facility]ORY SERVICES CO2 Total 30 22 - 32 mmol/L 07/05/2024 18:08 [facility]ORY SERVICES Glucose 76 70 - 99 mg/dl 07/05/2024 18:08 [facility] LABORATORY SERVICES BUN 15 10 - 26 mg/dL 07/05/2024 18:08 [facility]OR[facility]ORY SERVICES Creatinine 0.66 0.52 - 1.04 mg/dL 07/05/2024 18:08 [facility] LABORATORY SERVICES eGFR 91 >60 mL/min/1.7 3m2 07/05/2024 18:08 [facility] LABORATORY SERVICES Total Protein 7.2 6.3 - 8.2 g/dL 07/05/2024 18:08 [facility] LABORATORY SERVICES Albumin 4.7 3.4 - 4.9 g/dL 07/05/2024 18:08 [facility] LABORATORY SERVICES Alkaline Phosphatase 56 38 - 126 U/L 07/05/2024 18:08 [facility]ORY SERVICES AST 24 15 - 46 U/L 07/05/2024 18:08 [facility]OR[facility]ORY SERVICES ALT 17 <35 U/L 07/05/2024 18:08 [facility]ORY SERVICES Bilirubin, Total 0.8 <1.4 mg/dL 07/05/20 24 18:08 [facility] LABORATORY SERVICES Calcium 9.5 8.5 - 10.5 mg/dL 07/05/2024 18:08 [facility] LABORATORY SERVICES Albumin/Globulin Ratio 1.9 1.0 - 2.5 07/05/2024 18:08 [facility] LABORATORY SERVICES Anion Gap 7 5 - 14 mmol/L 07/05/2024 18:08 [facility] LABORATORY SERVICES Blood VENOUS BLOOD / Unknown Venipuncture / Unknown 07/05/2024 13:52 EDT 07/05/2024 13:52 EDT Luz Maria Peter NP CHEMISTRY & BLOOD GAS ORDERABLES LABORATORY SERVICES [address] [place] [address] * MA BREAST SCREENING ELO BILATERAL (07/05/2024 [...] needed we will contact your patient directly. [address] [address] [id number] Narrative 07/06/2024 9:05 EDT MA BREAST SCREENING ELO BILATERAL ??07/05/2024 1:08 PM History: bilateral screening Comparison: ??Comparison has been made to previous images . ? Technique: Routine 3D tomosynthesis with synthesized 2D views with CAD Breast Composition: There are scattered areas of fibroglandular density. Bilateral Breast Findings: ??No significant masses, calcifications or other abnormalities are seen. Resulting Agency Comment [id number] Procedure Note Reji Carroll MD - 07/06/2024 [place] BREAST SCREENING ELO BILATERAL 07/05/2024 1:08 PM [...] is needed we will contact yourpatient directly. [address] [address] [id number] Clint Miramontes MD IMG MAMMOGRAPHY ORDE TREMAYNE * LYME DISEASE, PCR, SYNOVIAL FLD (06/13/2024 15:18 EDT) SPECIMEN SOURCE Left knee 18:38 EDT [facility] B. burgdorferi PCR Negative Negative 2023 18:38 EDT [facility] B. mayonii PCR Negative Negative 06/16/2024 18:38 EDT [facility] B. Garinii/B.afzelii PCR Negative Negative 06/16/2024 18:38 EDT [facility] LYME FLUID COMMENT SEE NOTE 2023 18:38 EDT [facility] Comment: If clinical features of illness are highly indicative of Lyme neuroborreliosis, additional serological testing would be recommended. ADDITIONAL INFORMATION This test was developed and its performance characteristics determined by [facility] in a manner consistent with CLIA requirements. This test has not been cleared or approved by the U.S. Food and Drug Administration. Test Performed by: [facility] - [address] [address] Commercial Project Manager: Lizette Mendez Ph.D.; CLIA# [id number] Fluid SYNOVIAL FLUID / Unknown 06/13/2024 15:18 EDT 06/13/2024 15:18 EDT Reema Peoples PA-C CHEMISTRY & BLOOD GAS ORDERABLES [facility] [address] [place] [id number] * PATHOLOGY REVIEW FLUID OTHER (06/13/2024 15:18 EDT) Path Review Fluid, other SYNOVIAL FLUID REVIEW No malignant cells identified. Cells counted as others are compatible with synovial lining cells. ??Agree with the reported differential showing mixed acute and chronic inflammation. Darrin Borrego MD 06/14/2024 11:55 06/14/2024 11:56 EDT LABORATORY SERVICES Fluid SYNOVIAL FLUID / Unknown 06/13/2024 15:18 EDT 06/13/2024 15:18 EDT Reema Peoples PA-C HEMATOLOGY & PF4 ORDERABLES [facility] [address] [place] [id number] * (ABNORMAL) SYNOVIAL FLUID DIFFERENTIAL (06/13/2024 15:18 EDT) Neutrophils, Synovial Fluid 24 10 - 24 % 06/13/2024 18:43 EDT LABORATORY SERVICES Lymphocytes, Synovial Fluid 55(H) 10 - 20 % 06/13/2024 18:43 [facility]OR[facility] SERVICES [place]/Macro Synovial Fluid 20(L) 55 - 75 % 06/13/2024 18:43 EDT LABORATORY SERVICES Other Cells, Synovial fluid 1 % 06/13/2024 18:43 EDT LABORATORY SERVICES Fluid SYNOVIAL FLUID / Unknown 06/13/2024 15:18 EDT 06/13/2024 15:18 EDT Reema RodriguezSensorist PA-C GEN LAB UNIT COLLECT ORDERABLES LABORATORY SERVICES [address] [place] [address] * (ABNORMAL) SYNOVIAL FLUID CELL COUNT (06/13/2024 15:18 EDT) RBC, Synovial Fluid 10,000 /cmm 06/13/2024 18:10 [facility] LABORATORY SERVICES Nucleated Cells 2,654(H) <=200 /cmm 06/13/2024 18:10 [facility] SERVICES Comment, Synovial Fluid Yellow Slightly bloody 06/13/2024 18:10 T LABORATORY SERVICES Fluid SYNOVIAL FLUID / Unknown 06/13/2024 15:18 EDT 06/13/2024 15:18 EDT Reema Awesome Maps PA-C GEN LAB UNIT COLLECT ORDERABLES LABOR[facility]ORY SERVICES [address] [place] [address] * CRYSTAL ANALYSIS FLUID ONLY (06/13/2024 15:18 EDT) Crystals Both intracellular and extracellular calcium pyrophosphate crystals present 06/13/2024 18:53 EDT LABORATORY SERVICES Fluid SYNOVIAL FLUID / Unknown 06/13/2024 15:18 EDT 06/13/2024 15:18 EDT Reema Peoples PA-C GEN LAB UNIT COLLECT ORDERABLES LABORATORY SERVICES [address] [place] [address] * LA ARTHROCENTESIS ASPIR&/INJ MAJOR JT/BURSA W/O US (06/13/2024 15:00 EDT) Narrative [facility] POINT OF CARE - 06/13/2024 15:00 EDT [...] to verify the correct patient, procedure, equipment, it support specialist and site/side marked as required. Patient was prepped and draped in the usual sterile fashion. Reema Peoples PA-C PROCEDURE/ID NOR SURGICAL ORDERABLES Performing Organization Address [facility] Co de Phone Number [facility] POINT OF CARE * (ABNORMAL) LIPID PROFILE (INCLUDES CHOLESTEROL, TRIGLYCERIDES, HDL, LDL) (06/29/2023 16:17 EDT) Cholesterol 175 <200 mg/dL 06/30/2023 17:49 EDT [facility] Comment:Note that therapeuti c goals will differ between patients based on cardiac risk factors and current medical therapy. HDL 47(L) >=50 mg/dl 06/30/2023 17:49 EDT [facility] Comment:Note that therapeuti c goals will differ between patients based on cardiac risk factors and current medical therapy. LDL, Calculated 102 <160 mg/dL 17:49 EDT [facility] Comment:Note that therapeuti c goals will differ between patients based on cardiac risk factors and current medical therapy. Triglyceride 131 <=150 mg/dL 06/30/2023 17:49 EDT [facility] Comment:Note that therapeuti c goals will differ between patients based on cardiac risk factors and current medical therapy. Chol/HDL Ratio 3.7 See Note 06/30/2023 17:49 EDT [facility] Comment: NOTE: Desirable Ratio = <4.1 Patient At Risk Ratio = >5.0(Males) ?>6.0(Females) Non HDL Cholesterol 128 <160 mg/dL 06/30/2023 17:49 EDT [facility] Comment:Note that therapeuti c goals will differ between patients based on cardiac risk factors and current medical therapy. Blood VENOUS BLOOD / Unknown Venipuncture / Unknown 06/29/2023 16:17 EDT 06/29/2023 16:17 EDT Clint Miramontes MD CHEMISTRY & BLOOD GA S ORDERABLES Performing Organization Address City/State/[facility] Co de Phone Number [facility] [address] [place] [address] * DXA BONE DENSITY (06/18/2023 14:46 EDT) Anatomical Region Laterality Modality DEXA Narrative 06/21/2023 19:42 EDT Table formatting from the original result was not included. Indication: osteopenia; monitoring treatment; height loss; history of glucocorticoids; cancer; asthma or emphysema; Accession number: [id number] Clinical Information Provided by Patient: Has taken [...] Advance Directives For more information, please contact: [phone] * Full Code (Latest Code Status on File) Date Activated Date Inactivated Comments 06/06/2011 9:46 06/06/2011 18:23 * Full Code Date Activated Date Inactivated Comments 06/03/2010 13:40 06/04/2010 14:18 Care Teams Oil Well Driller Relationship Specialty Start Date End Date Clint Miramontes MD [address] [place] [phone] PCP - General 08/23/19
--- OUTSIDE RECORDS SUMMARY | 2024-08-07 13:34 | XMS_ITS ---
Author Organization [facility] Address [address] [place] [address] Care Team Providers Care Polisher Numeral Name Role Phone Clint Miramontes MD Primary Care Provider [phone] Active Problems Problem Noted Date Diagnosed Date Intramural leiomyoma of uterus 07/19/2021 Other ovarian cyst, left side 07/19/2021 Aneurysm ([facility]) 10/06/2019 Chronic obstructive pulmonary disease ([facility]) 10/06/2019 Female bladder prolapse 10/06/2019 Impaired glucose tolerance 10/06/2019 LBBB (left bundle branch block) 10/06/2019 Age-related osteoporosis wit hout current pathological fracture 10/06/2019 Sleep disturbance 10/06/2019 Vitamin D deficiency 10/06/2019 Cerebral aneurysm, nonruptured 06/04/2010 Overview: Right PCOM s/p coil embolization 06/03/2010 Mixed hyperlipidemia 06/04/2010 Overview: On Crestor 06/2010 Anxiety 06/04/2010 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 ([facility]) 06/04/2010 Overview: 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 Clinical stage IIIa disease with numerous small lymph nodes above and below the diaphragm. No treatment at this time. Current Oncology Plans No current plan information found. Past Plans Radiation Treatments * No radiation treatments are documented for this patient in [facility]. Treatments may have been administered in another system.
--- OUTSIDE RECORDS SUMMARY | 2024-08-07 13:35 | XMS_ITS | Encounter Summary ---
Author Organization [facility] Address [address] [place] [address] Care Team Providers Care Building Maintenance Supervisor Name Role Phone Clint Miramontes MD Primary Care Provider [phone] Reason for Visit * Auth/Cert Specialty Diagnoses / Procedures Referred By Annia gan Referred To Contact Referral ID Status Reason Start Date Expiration Date Visits Re quested Visits Authorized [id number] 1 1 Encounter Details Date Type Department Care Team (Latest Contact Info) Description 10/09/2023 13:47 EST - 10/09/2023 23:59 EST Hospital Encounter [facility] Infusion [address] [place] [address] Age-related osteoporosis without current pathological fracture (Primary Dx) Discharge Disposition: Home or Self Care Social History Tobacco Use Types Packs/Day Years Used Date Smoking Tobacco: Former Cigarettes 1 18.7 1 964 - 07/03/1982 Smokeless Tobacco: Never Comments:1981 quit Alcohol Use Standard Drinks/Week Comments No 0 (1 standard drink = 0.6 oz pur e alcohol) PHQ-2 Answer Date Recorded PHQ-2 SUBTOTAL 1 11/21/2021 Interpersonal Safety Answer Date Record ed Physically Hurt Never 06/03/2020 Verbally Threaten Not on file 06/03/2020 Sex and Gender Information Value Date Recorded Sex Assigned at Not on file Gender Identity Female 03/09/2020 13:07 EDT Sexual Orientation Not on file documented as of this encounter Last Filed Vital Signs Vital Sign Reading Time Taken Comments Blood Pressure 121/54 10/09/2023 1408 EST Pulse - - Temperature 35.7 ??C (96.3 ??F) 10/09/2023 1408 EST Respiratory Rate 16 10/09/2023 1408 EST Oxygen Saturation 84% 10/09/2023 1408 EST Inhaled Oxygen Concentration - - Weight 43.1 kg (95 lb) 10/09/2023 1408 EST Height 149.9 cm (4' 11) 10/09/2023 1408 EST Body Mass Index 19.19 10/09/2023 1408 EST documented in this encounter Functional Status Functional Status Response [...] No 05/15/2017 documented as of this encounter Discharge Instructions * Attachments The following attachments cannot be sent through Care Everywhere. * zoledronic acid (Bengali) documented in this encounter Medications at Time of Discharge Medication Sig Dispensed Refills Start Date End Date aspirin 81 mg EC tablet Take 1 Tablet by mouth daily. cholecalciferol, Vitamin D3, 25 mcg (1,000 unit) tablet Take 2 Tablets by mouth daily. diazePAM (VALIUM) 2 mg tablet 1 tab PO bid PRN fying. 6 Tablet 3 04/03/2023 inhalational spacing device (E-Z SPACER) Inhale 1 Device as directed 2 times daily. For use with Flovent inhaler. Dx: J44.9. 1 Device 01/20/2020 lovastatin (MEVACOR) 40 mg tablet TAKE TWO TABLETS BY MOUTH EVERY DAY 180 Tablet 3 09/11/2023 albuterol sulfate 90 mcg/actuation aero powdr breath act w/sensor Inhale 1 Puff as directed 6 times daily. 1 Each 3 04/21/2022 05/19/2024 FLOVENT HFA 110 mcg/actuation inhaler INHALE 2 PUFFS EVERY 12 HOURS DIRECTED 12 g 3 05/07/2023 05/19/2024 LORazepam (ATIVAN) 1 mg tablet TAKE ONE TABLET BY MOUTH AT BEDTIME NEEDED FOR ANXIETY Strength: 1 mg 30 Tablet 3 08/14/2023 12/16/2023 documented as of this encounter Discharge Disposition Disposition Code Departure Means Destination Home or Self Care documented in this encounter Plan of Treatment Upcoming Encounters Date Type Department Care Team (Late st Contact Info) Description 08/10/2024 16:00 EDT Appointment [facility] MRI [address] [place], [place] [id number] 08/16/2024 14:00 EDT EMILIA [facility] O[facility] Ultrasound [address] [place] [phone] 08/29/2024 14:00 EDT Office Visit [facility] [address] [place] [address] Ness Vilchis MD [address] [place] [address], [address] [place] [phone] 08/31/2024 16:00 EDT Office Visit [facility] [address], [address] [place], [place] [phone] Reema Peoples PA-C [address] [facility] [address] [place], [place] [phone] 09/01/2024 9:30 EDT Office Visit [facility] Rheumatology [address] [place] [phone] Lin Grider MD [address] [place] [address] [address] [place] [phone] 11/08/2024 14:00 EST Office Visit [facility] Hematology & Oncology [address] [place] [phone] Luz Maria Peter NP [address] [place] [address] [address] [place] [address] 11/22/2024 10:15 EST Office Visit [facility] [place] [address] [place] [address] Clint Miramontes MD [address] [place] [phone] documented as of this encounter Visit Diagnoses Diagnosis Age-related osteoporosis without current pathological fracture- Primary Senile osteoporosis documented in this encounter Administered Medications Inactive Administered Medications - up to 3 most recent administrations Medication Order MAR Action Action Date Dose Rate Site zoledronic acid (RECLAST) 5 mg/100 mL IVPB 5 mg 5 mg, intravenous, Administer over 20 Minutes, NOW X1, 1 dose, On Thu10/09/23 at 1500, Routine New Bag 10/09/2023 14:27 EST 5 mg 3 00 mL/hr documented in this encounter Orders Medications Ordered That Allan ht Not Have Been Administered Count Last Ordered Date First Ordered Date acetaminophen (TYLENOL) tablet 650 mg 2 06/2023 diphenhydrAMINE (BENADRYL) capsule 25 mg 1 10/09/2023 diphenhydrAMINE (BENADRYL) injection 50 mg 1 10/09/2023 EPINEPHrine (ADRENALIN) injection 0.3 mg 1 10/09/2023 methylPREDNISolone sod suc(P F) (SOLU-MEDROL) injection 100 mg 1 10/09/2023 sodium chloride 0.9 % (flush) flush 10 mL 1 10/09/2023 sodium chloride 0.9 % (flush) flush 20 mL 1 10/09/2023 documented in this encounter Care Teams Building Maintenance Supervisor Relationship Specialty Start Date End Date Clint Miramontes MD [address] [place] [phone] PCP - General 08/23/19 documented as of this encounter
--- OUTSIDE RECORDS SUMMARY | 2024-08-07 13:35 | XMS_ITS | Encounter Summary ---
Author Organization [facility] Address [address] [place] [address] Care Team Providers Care Fixing Machine Operator Name Role Phone Clint Miramontes MD Primary Care Provider [phone] Reason for Visit * Reason Onset Date Comments Results 06/17/2024 Encounter Details Date Type Department Care Team (Late st Contact Info) Description 06/17/2024 Telephone [facility] [address], [address] [place] [address] Reema Peoples PA-C [address] [facility] [address] [place], [place] [phone] Results Social History Tobacco Use Types Packs/Day Years [...] place to sleep or slept in a senior living (including now)? No 11/07/2023 Interpersonal Safety Answer [...] encounter Miscellaneous Notes * Telephone Encounter - Nadira Mckeon RN - 06/17/2024 4309 EDT Called and spoke with Ms. Ramirez - the results were relayed to her. She states that she has not had much relief from the injection (done 06/13/24) and she was encouraged to give it a little more time to work. She will call the office with an update and should she not see significant improvement, we can order the MRI as the next step. She is in agreement with the plan. * Telephone Encounter - Ness Gambino MA - 06/17/2024 1553 EDT Mel called [facility] stating that she received a phone call this morning trying to reach her regardingthe results. She is going to be there for a little bit and will be able to answer the phone. * Telephone Encounter - Sarai Iqbal MA - 06/17/2024 1103 EDT ----- Message from Reema Peoples PA-C sent at 06/17/2024 10:03 EDT ----- No lyme, no infection, but has some calcium crystals in her fluid from her knee. Normal to see in arthritis. Can you call to let her know? Thanks! Attempted to reach patient to relay information. LVM asking to return call to discuss. documented in this encounter Plan of Treatment Upcoming Encounters Date Type Department Care Team (Late st Contact Info) Description 08/10/2024 16:00 EDT Appointment [facility] MRI [address] [place] [address] 08/16/2024 14:00 EDT EMILIA [facility] Ultrasound [address] [place] [address] 08/29/2024 14:00 EDT Office Visit [facility] [address] [place] [address] Ness Vilchis MD [address] [place] [address], [address] [place] [address] 08/31/2024 16:00 EDT Office Visit [facility] [address], [address] [place], [place] [address] Reema Peoples PA-C [address] [facility] [address] [place] [address] 09/01/2024 9:30 EDT Office Visit [facility] [address] [facility], [place] [phone] Lin Grider MD [address] [facility] [address] [place] [phone] 11/08/2024 14:00 EST Office Visit [facility] Oncology [address] [place] [address], [place] [phone] Luz Maria Peter NP [address] [facility] [address] [place] [address] 11/22/2024 10:15 EST Office Visit [facility] [place] [address] [place] [phone] Clint Miramontes MD [address] [place] [phone] documented as of this encounter Visit Diagnoses Not on filedocumented in this encounter Care Teams Fixing Machine Operator Relationship Specialty Start Date End Date Clint Miramontes MD [address] [place] [phone] PCP - General 08/23/19 documented as of this encounter
--- OUTSIDE RECORDS SUMMARY | 2024-08-07 13:35 | XMS_ITS | Encounter Summary ---
Author Organization [facility] Address [address] [place] [address] Care Team Providers Care Manager Of Internal Audit Name Role Phone Clint Miramontes MD Primary Care Provider [phone] Reason for Visit * Reason Comments Follow-up Surveillance for h/o lymphoma Encounter Details Date Type Department Care Team (Late st Contact Info) Description 03/07/2024 14:30 EDT Office Visit [facility] Adult Hematology & Oncology [address] [place] [address] Luz Maria Peter, GABRIEL [address] [facility] [address] [place] [address] History of lymphoma (Primary Dx); 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) Social History Tobacco Use Types Packs/Day Years Used Date Smoking Tobacco: Former Cigarettes 1 18.7 1 964 - 07/03/1982 Smokeless Tobacco: Never Tobacco Cessation:Counseling Given: Not Answered Comments:1981 quit Alcohol Use Standard Drinks/Week Comments No 0 (1 standard drink = 0.6 oz pur e alcohol) Overall Financial Resource Strain (CARDIA) Seferino r Date Recorded How hard is it [...] Sign Reading Time Taken Comments Blood Pressure 116/62 03/07/2024 1431 EDT Pulse 104 03/07/2024 1431 EDT Temperature - - Respiratory Rate - - Oxygen Saturation 96% 03/07/2024 1431 EDT Inhaled Oxygen Concentration - - Weight 44.5 kg (98 lb) 03/07/2024 1431 EDT Height - - Body Mass Index 20.84 11/19/2023 1022 EST documented in this encounter Functional Status [...] No 05/15/2017 documented as of this encounter Progress Notes * Luz Maria Peter, GABRIEL - 03/07/2024 1430 EDT CC: Chief Complaint Patient presents with Follow-up Surveillance for h/o lymphoma Hematology/Oncology Problem List: 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 ([facility] Rafa 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 Clinical stage IIIa disease with numerous small lymph nodes above and below the diaphragm. No treatment at this time. Subjective: Ms. Ramirez is here for follow up in the setting of marginal zone lymphoma. Denies night sweats, adenopathy or continued weight loss. Has managed to maintain her weight recently. Recent trip with family to [place] which was enjoyable. Recently has fluid drained from left knee. This has been uncomfortable. Plans to follow up with ortho. Review of Systems: All 10 systems have been reviewed and are negative except for the mentioned above. Medications: Current Outpatient Medications Medication albuterol sulfate 90 mcg/actuation aero powdr breath act w/sensor aspirin 81 mg EC tablet cholecalciferol, Vitamin D3, 25 mcg (1,000 unit) tablet diazePAM (VALIUM) 2 mg tablet FLOVENT HFA 110 mcg/actuation inhaler inhalational spacing device (E-Z SPACER) LORazepam (ATIVAN) 1 mg tablet lovastatin (MEVACOR) 40 mg tablet No current facility-administered medications for this visit. Objective: VS: BP 116/62 Pulse 104 Wt (!) 44.5 kg (98 lb) SpO2 96% BMI 20.84 kg/m?? Social History Socioeconomic History Marital status: Single Tobacco Use Smoking status: Former Current packs/day: 0.00 Average packs/day: 1 pack/day for 18.7 years (18.7 ttl pk-yrs) Types: Cigarettes Start date: 1964 Quit date: 07/03/1982 Years since quittin.7 Smokeless tobacco: Never Tobacco comments: 1981 quit Vaping Use Vaping status: Former Substances: THC Devices: Pre-filled or refillable cartridge Substance and Sexual Activity Alcohol use: No Drug use: Yes Frequency: 5.0 times per week Types: Marijuana Comment: smokes and does edibles Social Determinants of Health Financial Resource Strain: Medium Risk (11/07/2023) Overall Financial Resource Strain (CARDIA) Difficulty of Paying Living Expenses: Somewhat hard Food Insecurity: No Food Insecurity (11/07/2023) Hunger Vital Sign Worried About Running Out of Food in the Last Year: Never true Ran Out of Food in the Last Year: Never true Transportation Needs: No Transportation Needs (11/07/2023) PRAPARE - Transportation Lack of Transportation (Medical): No Lack of Transportation (Non-Medical): No Housing Stability: Low Risk (11/07/2023) Housing Stability Vital Sign Unable to Pay for Housing in the Last Year: No Number of Places Lived in the Last Year: 1 Unstable Housing in the Last Year: No Physical Exam: General appearance: Pleasant adult female in NAD. Skin: Skin color, temperature, turgor normal. No rashes or lesions. HENT: Sclera anicteric. No facial pallor. Lungs: LCTA bilaterally. Good inspiratory effort. Heart: Rapid rate, regular rhythm Abd: Soft, non tender. No HSM Extremities: No LE edema Lymph nodes: No palpable cervical or supraclavicular or inguinal adenopathy. Neuro: Alert and oriented x 3. Normal affect. Normal gait. Performance Status:0 Data Review: Labs: Results for orders placed or performed in visit on 03/07/24 COMPLETE BLOOD COUNT AND DIFFERENTIAL Result Value Ref Range WBC 6.16 4.00 - 12.40 K/cmm RBC 4.31 3.86 - 5.04 M/cmm Hemoglobin 12.7 11.6 - 15.2 g/dL HCT 39.0 34.9 - 44.4 % MCV 91 81 - 98 fL MCH 29.5 26.7 - 33.3 pg MCHC 32.6 32.1 - 35.9 g/dL RDW-CV 13.3 <14.7 % RDW-SD 42.9 <50.4 fl PLT 234 141 - 377 K/cmm MPV 9.2 (L) 9.5 - 12.7 fL % Neutrophils 63.4 % % Lymphocytes 26.1 % % Monocytes 7.5 % % Eosinophils 2.4 % % Basophils 0.6 % % Immature Grans Absolute Neutrophils 3.90 2.20 - 8.85 K/cmm Absolute Lymphocytes 1.61 1.09 - 3.30 K/cmm Absolute Monocytes 0.46 0.10 - 0.80 K/cmm Absolute Eosinophils 0.15 0.03 - 0.61 K/cmm ABS Basophils 0.04 0.01 - 0.11 K/cmm Absolute Immature Grans Type of Differential: Auto COMPREHENSIVE METABOLIC PANEL (CMP) Result Value Ref Range Sodium 141 136 - 145 mmol/L Potassium 4.6 3.5 - 5.0 mmol/L Chloride 103 96 - 110 mmol/L CO2 Total 29 22 - 32 mmol/L Glucose 84 70 - 99 mg/dl BUN 18 10 - 26 mg/dL Creatinine 0.78 0.52 - 1.04 mg/dL eGFR 80 >60 mL/min/1.73m2 Total Protein 6.7 6.3 - 8.2 g/dL Albumin 4.2 3.4 - 4.9 g/dL Alkaline Phosphatase 55 38 - 126 U/L AST 26 15 - 46 U/L ALT 17 <35 U/L Bilirubin, Total 0.7 <1.4 mg/dL Calcium 9.4 8.5 - 10.5 mg/dL Albumin/Globulin Ratio 1.7 1.0 - 2.5 Anion Gap 9 5 - 14 mmol/L LDH Result Value Ref Range LDH 208 120 - 246 U/L Assessment/Plan: Ms. Ramirez is a 72 yo female with marginal zone lymphoma on surveillance. CT scans from 05/27/22 reviewed with showed no evidence of pathologically enlarged nodes. Noted is a 2.8 cm adenexal cystic lesion unchanged from 07/2022. Weight loss: Now maintaining weight successfully. PET CT from 09/26/23 showed no evidence of abnormal radiotracer uptake. Continues to deny adenopathy of night sweats. LDH remains normal. PE unremarkable. Will return to clinic in 4 months. Cc: Clint Miramontes MD 30 minutes in face to face contact with 25 minutes counseling side effect, treatment management andcoordination of care. Luz Maria Peter ANP/CYBER SECURITY CONSULTANT [facility] Adult Hematology & Oncology * Pk Sanchez RN - 03/07/2024 1430 EDT Procedures: - Venipuncture Performed by: PK SANCHEZ RN Site Collected: Right Antecubital Space Volume Withdrawn: LAV EDTA 3.0 mL and [place] SST 8.5 mL Patient Response:Patient tolerated venipuncture well and 23G Butterfly used Number of attempts: Collected on: 03/07/24 14:34 Supervising Provider: Jessica Peter NP documented in this encounter Plan of Treatment Upcoming Encounters Date Type Department Care Team (Late st Contact Info) Description 08/10/2024 16:00 EDT Appointment [facility] MRI [address] [place] [id number] 08/16/2024 14:00 EDT EMILIA [facility] OBGYN Ultrasound [address] [place] [phone] 08/29/2024 14:00 EDT Office Visit [facility] OBGYN [address] [place] [phone] Ness Vilchis MD [address] [place] [address], [address] [place] [address] 08/31/2024 16:00 EDT Office Visit [facility] Orthopedics & Sport Medicine [address], [address] [place] [address] Reema Peoples PA-C [address] [facility] [address] [place] [address] 09/01/2024 9:30 EDT Office Visit [facility] Rheumatology [address] [place] [address] Lin Grider MD [address] [place] [address] [address] [address] [place] [address] 11/08/2024 14:00 EST Office Visit [facility] Adult Hematology & Oncology [address] [place] [phone] Luz Maria Peter NP [address] [facility] [address] [place] [phone] 11/22/2024 10:15 EST Office Visit [facility] Family Medicine - [place] [address] [place] [address] Clint Miramontes MD [address] [place] [phone] documented as of this encounter Procedures Procedure Name Priority Date/Time Associated Diagnosis Comments COMPLETE BLOOD COUNT AND DIFFERENTIAL Routine 03/07/2024 14:29 EDT History of lymphoma 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) LDH Routine 03/07/2024 14:29 EDT History of lymphoma 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) COMPREHENSIVE METABOLIC PANEL (CMP) Routine 03/07/2024 14:29 EDT History of lymphoma 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) documented in this encounter Results * LDH (03/07/2024 14:29 EDT) Pathologist [facility] LDH 208 120 - 246 U/L 03/07/2024 17:45 EDT [facility] Blood VENOUS BLOOD / Unknown Venipuncture / Unknown 03/07/2024 14:29 EDT 03/07/2024 14:29 EDT Luz Maria Peter NP CHEMISTRY & BLOOD GAS ORDERABLES [facility] [address] [place], [place] [id number] * COMPREHENSIVE METABOLIC PANEL (CMP) (03/07/2024 14:29 EDT) Pathologist [facility] Sodium 141 136 - 145 mmol/L 03/07/2024 17:45 [facility] Potassium 4.6 3.5 - 5.0 mmol/L 03/07/2024 17:45 [facility] Chloride 103 96 - 110 mmol/L 03/07/2024 17:45 [facility] CO2 Total 29 22 - 32 mmol/L 03/07/2024 17:45 [facility] Glucose 84 70 - 99 mg/dl 03/07/2024 17:45 [facility] BUN 18 10 - 26 mg/dL 03/07/2024 17:45 [facility] Creatinine 0.78 0.52 - 1.04 mg/dL 03/07/2024 17:45 [facility] eGFR 80 >60 mL/min/1.7 3m2 03/07/2024 17:45 [facility] Total Protein 6.7 6.3 - 8.2 g/dL 03/07/2024 17:45 [facility] Albumin 4.2 3.4 - 4.9 g/dL 03/07/2024 17:45 [facility] Alkaline Phosphatase 55 38 - 126 U/L 03/07/2024 17:45 [facility] AST 26 15 - 46 U/L 03/07/2024 17:45 [facility] ALT 17 <35 U/L 03/07/2024 17:45 [facility] Bilirubin, Total 0.7 <1.4 mg/dL 03/07/20 17:45 [facility] Calcium 9.4 8.5 - 10.5 mg/dL 03/07/2024 17:45 [facility] Albumin/Globulin Ratio 1.7 1.0 - 2.5 03/07/2024 17:45 [facility] Anion Gap 9 5 - 14 mmol/L 03/07/2024 17:45 [facility] Blood VENOUS BLOOD / Unknown Venipuncture / Unknown 03/07/2024 14:29 EDT 03/07/2024 14:29 EDT Luz Maria Peter NP CHEMISTRY & BLOOD GAS ORDERABLES [facility] [address] [place] [address] * (ABNORMAL) COMPLETE BLOOD COUNT AND DIFFERENTIAL (03/07/2024 14:29 EDT) WBC 6.16 4.00 - 12.40 K/cmm 03/08/2024 8:13 EDT [facility] HEMATOLOGY & ONCOLOGY [facility] RBC 4.31 3.86 - 5.04 M/cmm 03/08/2024 8:13 EDT [facility] HEMATOLOGY & ONCOL[facility]Y [facility] Hemoglobin 12.7 11.6 - 15.2 g/dL 03/08/2024 8:13 EDT [facility] HCT 39.0 34.9 - 44.4 % 03/08/2024 8:13 EDT [facility] HEMATOLOGY & ONCOLOGY [facility] MCV 91 81 - 98 fL 03/08/2024 8:13 EDT [facility] HEMATOLOGY ONCOLOGY [facility] MCH 29.5 26.7 - 33.3 pg 03/08/2024 8:13 EDT [facility] HEMATOLOGY & ONCOLOGY [facility] MCHC 32.6 32.1 - 35.9 g/dL 03/08/2024 8:13 EDT [facility] HEMATOLOGY ONCOLOGY [facility] RDW-CV 13.3 <14.7 % 03/08/2024 8:13 EDT [facility] RDW-SD 42.9 <50.4 fl 03/08/2024 8:13 EDT [facility] HEMATOLOGY & ONCOLOGY [facility] PLT 234 141 - 377 K/cmm 03/08/2024 8:13 EDT [facility] HEMATOLOGY ONCOLOGY [facility] MPV 9.2(L) 9.5 - 12.7 fL 03/08/2024 8:13 EDT [facility] HEMATOLOGY & ONCOL[facility]Y [facility] % Neutrophils 63.4 % 03/08/2024 8:13 EDT [facility] HEMATOLOGY & ONCOL[facility]Y [facility] % Lymphocytes 26.1 % 03/08/2024 8:13 EDT [facility] HEMATOLOGY & ONCOL[facility]Y [facility] % Monocytes 7.5 % 03/08/2024 8:13 EDT [facility] HEMATOLOGY & ONCOL[facility]Y [facility] % Eosinophils 2.4 % 03/08/2024 8:13 EDT [facility] HEMATOLOGY ON[facility]Y [facility] % Basophils 0.6 % 03/08/2024 8:13 EDT [facility] % Immature Grans 03/08/20 8:13 EDT [facility] HEMATOLOGY & ONCOLOGY [facility] Absolute Neutrophils 3.90 2.20 - 8.85 K/cmm 03/08/2024 8:13 EDT [facility] HEMATOLOGY ONCOLOGY [facility] Absolute Lymphocytes 1.61 1.09 - 3.30 K/cmm 03/08/2024 8:13 EDT [facility] HEMATOLOGY ONCOLOGY [facility] Absolute Monocytes 0.46 0.10 - 0.80 K/cmm 03/08/2024 8:13 EDT [facility] Absolute Eosinophils 0.15 0.03 - 0.61 K/cmm 03/08/2024 8:13 EDT [facility] ABS Basophils 0.04 0.01 - 0.11 K/cmm 03/08/2024 8:13 EDT [facility] Absolute Immature Grans 03/08/2024 8:13 EDT [facility] Type of Differential: Auto 03/08/2024 8:13 T [facility] Blood VENOUS BLOOD / Unknown Venipuncture / Unknown 03/07/2024 14:29 EDT 03/07/2024 14:29 EDT Luz Maria Peter MOVING [employer] P[employer]AGES & DNA PRO BE ORDERABLES [facility] HEMATOLOGY ONCOLOGY [facility] Medical Office Building [address] documented in this encounter Visit Diagnoses Diagnosis History of lymphoma- Primary Personal history of other lymphatic and hematopoietic neoplasm 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) documented in this encounter Care Teams Manager Of Internal Audit Relationship Specialty Start Date End Date Clint Miramontes MD [address] [place] [phone] PCP - General 08/23/19 documented as of this encounter
--- OUTSIDE RECORDS SUMMARY | 2024-08-07 13:35 | XMS_ITS | Encounter Summary ---
Author Organization [facility] Address [address] [place] [address] Care Team Providers Care Operations Intelligence Superintendent Name Role Phone Clint Miramontes MD Primary Care Provider [phone] Reason for Visit * Reason Onset Date Comments Follow-up 04/21/2024 Encounter Details Date Type Department Care Team (Late st Contact Info) Description 04/21/2024 Telephone [facility] [place] OBGYN [address] [place] [address] Imelda Lazo RN Follow-up Social History Tobacco Use Types Packs/Day Years [...] place to sleep or slept in a intermediate (including now)? No 11/07/2023 Interpersonal Safety Answer [...] encounter Miscellaneous Notes * Telephone Encounter - Imelda Lazo RN - 05/02/2024 1530 EDT Verified pt is on recall/wait list for pediatric geneticist f/u at this time. Removing from remind me/tracking file. * Telephone Encounter - Ness Vilchis MD - 04/21/2024 1605 EDT U/s ordered for patient annual u/s follow up. She will need a visit to review results (can be televideo). Recall List Don't sched before: 08/2024 F/u time: 08/2024 Call day? Yes Televideo? Yes Priority: Normal Visit type: Office Visit (30) or Televideo (30) Reason: review u/s Provider: Pricila Vilchis Other: please make sure u/s is done days prior to apt so result has been read by a radiologist. * Telephone Encounter - Imelda Lazo, RN - 04/21/2024 1242 EDT /Tracking:/ 07/2021-u/s ---f/u u/s for left ovarian cyst with ov with jv after (end 07/2022) 07/13/2023-u/s pelvis tv-IMPRESSION 1. BILOCULAR 2.9 CM LEFT OVARIAN CYST, slowly enlarging compared to 2020. O-RADS category 2: Almostcertainly benign. Per ACR guidelines for this postmenopausal patient, surveillance ultrasound is recommended in 1 year. 2. Fibroid uterus, as detailed above. Repeat imaging 1 yr (07/2024) Not on any pediatric geneticist recall/wait lists. To JV on how to ensure follow without remind me/tracking file. Or do you want to leave pt in tracking for this circumstance? documented in this encounter Plan of Treatment Upcoming Encounters Date Type Department Care Team (Late st Contact Info) Description 08/10/2024 16:00 EDT Appointment [facility] MRI [address] [place] [phone] 08/16/2024 14:00 EDT EMILIA [facility] OBGYN Ultrasound [address] [place] [address] 08/29/2024 14:00 EDT Office Visit [facility] OBGYN [address] [place] [address] Ness Vilchis MD 130 [facility], [address] [place] [phone] 08/31/2024 16:00 EDT Office Visit [facility] Orthopedics & Sport Medicine [address], [address] [place] [address] Reema Peoples PA-C [address] [facility] [address] [place], [place] [address] 09/01/2024 9:30 EDT Office Visit [facility] Rheumatology [address], [place] [phone] Lin Grider MD 130 [facility] [address] [place] [address] 11/08/2024 14:00 EST Office Visit [facility] Adult Hematology & Oncology [address] [place] [address], [place] [phone] Luz Maria Peter NP [address] [facility] [address] [place] [address] 11/22/2024 10:15 EST Office Visit [facility] Family Medicine - [address] [address] Clint Miramontes MD [address] [place] [phone] Scheduled Orders Name Type Priority Associated Diagnoses Orde r Schedule US PELVIS TRANSVAGINAL COMPLETE Imaging Routine Left ovarian cyst Expected: 07/28/2024 (Approximate), Expires: 04/21/2025 documented as of this encounter Visit Diagnoses Diagnosis Left ovarian cyst- Primary Other and unspecified ovarian cyst documented in this encounter Care Teams Operations Intelligence Superintendent Relationship Specialty Start Date End Date Clint Miramontes MD [address] [place] [phone] PCP - General 08/23/19 documented as of this encounter
--- OUTSIDE RECORDS SUMMARY | 2024-08-07 13:35 | XMS_ITS | Encounter Summary ---
Author Organization [facility] Address [address] [place] [address] Care Team Providers Care Cnc Laser Operator Name Role Phone Clint Miramontes MD Primary Care Provider [phone] Reason for Visit * Reason Onset Date Comments Orders (Non Pre-visit) 08/17/2023 Encounter Details Date Type Department Care Team (Late st Contact Info) Description 08/17/2023 Telephone [facility] Family Medicine - [place] [address] [place] [phone] Clint Miramontes MD [address] [place] [phone] Orders (Non Pre-visit) Social History Tobacco Use Types Packs/Day Years [...] No 05/15/2017 Cognitive Status Response Date of Assess ent Because of a physical, menta l, or emotional condition, does this person have serious difficulty concentrating, remembering, or making decisions? No 05/15/2017 documented as of this encounter Miscellaneous Notes * Addendum Note - Luz Maria Guzman RN - 08/18/2023 1036 EDTAddended by: LUZ MARIA GUZMAN on: 08/18/2023 10:36 Modules accepted: Orders * Telephone Encounter - Chioma Mandel - 08/18/2023 1017 EDT Rerouted PET scan to [facility]. * Telephone Encounter - Luz Maria Guzman RN - 08/18/2023 0957 EDT Please advise on future orders. Would you like tsh or T4 free both. Chioma , are you able to reroute to [facility]? * Telephone Encounter - Mynor Cobb - 08/17/2023 0944 EDT Patient called to advise that [facility] is no longer doing PET scans. Patient would be okay having sent to [facility] or [facility]. Last check both facilities were booking into early September. Patient was also curious on low thyroid levels. documented in this encounter Plan of Treatment Upcoming Encounters Date Type Department Care Team (Late st Contact Info) Description 08/10/2024 16:00 EDT Appointment [facility] MRI [address] [place] [address] 08/16/2024 14:00 EDT EMILIA [facility] OBGYN Ultrasound [address] [place] [phone] 08/29/2024 14:00 EDT Office Visit [facility] OBGYN [address] [place] [address] Ness Vilchis MD [address] [facility], [address] [place] [phone] 08/31/2024 16:00 EDT Office Visit [facility] Orthopedics & Sport Medicine [address], [address] [place], [place] [phone] Reema Peoples PA-C [address] [facility] [address] [place], [place] [phone] 09/01/2024 9:30 EDT Office Visit [facility] Rheumatology [address] [place], [place] [phone] Lin Grider MD [address] [place] [address] [address] [place] [address] 11/08/2024 14:00 EST Office Visit [facility] Adult Hematology & Oncology [facility], [place] [phone] Luz Maria Peter, GABRIEL [address] [facility] [address] [place] [address] 11/22/2024 10:15 EST Office Visit [facility] Family Medicine - [place] [address] [place] [address] Clint Miramontes MD [address] [place] [phone] documented as of this encounter Results * TSH (09/07/2023 10:37 EST) TSH 1.20 0.47 - 4.68 mIU/L 09/07/2023 13:03 EST [facility] Blood VENOUS BLOOD / Unknown Venipuncture / Unknown 09/07/2023 10:37 EST 09/07/2023 10:37 EST Narrative [facility] - 09/07/2023 13:03 EST The results of this assay can be falsely lowered due to the consumption of Biotin. Clint Miramontes MD CHEMISTRY & BLOOD GA S ORDERABLES Performing Organization Address City/State/[facility] Co de Phone Number [facility] [address] [place] [address] documented in this encounter Visit Diagnoses Diagnosis Hypothyroidism, unspecified type- Primary documented in this encounter Care Teams Cnc Laser Operator Relationship Specialty Start Date End Date Clint Miramontes MD [address] [place] [phone] PCP - General 08/23/19 documented as of this encounter
--- OUTSIDE RECORDS SUMMARY | 2024-08-07 13:35 | XMS_ITS | Encounter Summary ---
Author Organization [facility] Address [address] [place] [address] Care Team Providers Care Aquatic Biologist Name Role Phone Clint Miramontes MD Primary Care Provider [phone] Reason for Visit * Reason Comments Follow-up Encounter Details Date Type Department Care Team (Late st Contact Info) Description 12/30/2023 14:45 EST Office Visit [facility] Orthopedics & Sport Medicine [address] [place] [address] Reema Peoples PA-C [address] [facility] [address] [place], [place] [phone] Left knee pain, unspecified chronicity (Primary Dx) Social History Tobacco Use Types Packs/Day Years Used Date Smoking Tobacco: Former Cigarettes 1 18.7 1 964 - 07/03/1982 Smokeless Tobacco: Never Comments:1981 quit Alcohol Use Standard Drinks/Week Comments No 0 (1 standard drink = 0.6 oz pur e alcohol) Overall Financial Resource Strain (CARDIA) Narae r Date Recorded How hard is it [...] place to sleep or slept in a half-way (including now)? No 11/07/2023 Interpersonal Safety Answer [...] as of this encounter Progress Notes * Reema Peoples PA-C - 12/30/2023 1445 ESTAssociated Order(s): Large Joint Injection/Arthrocentesis: L knee Post-Procedure Diagnose(s): Left knee pain, unspecified chronicity LV 03/09/23 HH - Left knee pain Steroid injection performed TMD 04/17/23 - 100% relief from injection XR 01/23/23 Today: Reevaluation Having swelling Thinks injection is wearing off Pain gets up to a 5/10 Procedure: Large Joint Injection/Arthrocentesis: L knee on 12/30/2023 14:45 Indications: pain Details: 22 G needle, anterolateral approach Medications: 5 mL lidocaine (PF) 10 mg/mL (1 %); 80 mg methylPREDNISolone ACETATE 80 mg/mL Outcome: tolerated well, no immediate complications Procedure, treatment alternatives, risks and benefits explained, specific risks discussed. Consent was given by the patient. Immediately prior to procedure a time out was called to verify the correctpatient, procedure, equipment, applications support specialist and site/side marked as required. Patient was prepped and draped in the usual sterile fashion. documented in this encounter Plan of Treatment Upcoming Encounters Date Type Department Care Team (Late st Contact Info) Description 08/10/2024 16:00 EDT Appointment [facility] MRI [address] [place], [place] [id number] 08/16/2024 14:00 EDT EM[facility] OBGYN Ultrasound [address] [place] [id number] 08/29/2024 14:00 EDT Office Visit [facility] OBGYN [address] [place] [phone] Ness Vilchis MD [address] [facility] [place] [address] 08/31/2024 16:00 EDT Office Visit [facility] Orthopedics & Sport Medicine [address] [place] [address] Reema Peoples PA-C [address] [facility] [address] [place], [place] [phone] 09/01/2024 9:30 EDT Office Visit [facility] Rheumatology [address] [place], [place] [phone] Lin Grider MD [address] [facility] [address] [place] [address] 11/08/2024 14:00 EST Office Visit [facility] Adult Hematology & Oncology [facility] [place] [address] Luz Maria Peter NP [address] [facility], [address] [place] [address] 11/22/2024 10:15 EST Office Visit [facility] Family Medicine - [place] [address] [place] [address] Clint Miramontes MD [address] [place] [phone] documented as of this encounter Procedures Procedure Name Priority Date/Time Associated Diagnosis Comments LARGE JOINT INJECTION/ARTHROCEN TESIS Routine 12/30/2023 14:45 EST Left knee pain, unspecified chronicity documented in this encounter Results * [place] ARTHROCENTESIS ASPIR&/INJ MAJOR JT/BURSA W/O US (12/30/2023 14:45 EST) Narrative [facility] POINT OF CARE - 12/30/2023 14:45 EST Reema Peoples PA-C ? 01/04/2024 ??8:13 Large Joint Injection/Arthrocentesis: L knee on 12/30/2023 14:45 Indications: pain Details: 22 G needle, anterolateral approach Medications: 5 mL lidocaine (PF) 10 mg/mL (1 %); 80 mg methylPREDNISolone ACETATE 80 mg/mL Outcome: tolerated well, no immediate complications Procedure, treatment alternatives, risks and benefits explained, specific risks discussed. Consent was given by the patient. Immediately prior to procedure a time out was called to verify the correct patient, procedure, equipment, applications support specialist and site/side marked as required. Patient was prepped and draped in the usual sterile fashion. Reema Peoples PA-C PROCEDURE/AR NOR SURGICAL ORDERABLES [facility] POINT OF CARE documented in this encounter Visit Diagnoses Diagnosis Left knee pain, unspecified chronicity- Primary documented in this encounter Administered Medications Inactive Administered Medications - up to 3 most recent administrations Medication Order MAR Action Action Date Dose Rate Site lidocaine (PF) 10 mg/mL (1 %) injection 5 mL 5 mL, other, Once PRN Procedure, 1 dose, Starting on Thu12/30/23 at 1445, Until Thu12/30/23 at 1445, Routine Given 12/30/2023 14:45 EST 5 mL Left K nee methylPREDNISolone ACETATE (DEPO-MEDROL) injection 80 mg 80 mg, intra-articular, Once PRN Procedure, 1 dose, Starting on Thu12/30/23 at 1445, Until Thu12/30/23 at 1445, Routine Given 12/30/2023 14:45 EST 80 mg Left Knee documented in this encounter Care Teams Aquatic Biologist Relationship Specialty Start Date End Date Clint Miramontes MD [address] [place] [address] PCP - General 08/23/19 documented as of this encounter
--- OUTSIDE RECORDS SUMMARY | 2024-08-07 13:35 | XMS_ITS | Encounter Summary ---
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) Weight loss Nausea Procedures PET CT EYE TO THIGH Clint Miramontes MD [address] [place] [address] [facility] [address] [place] [address] Referral ID Status Reason Start Date Expiration Date V isits Requested Visits Authorized [id number] Authorized 08/18/2023 10/02/2023 1 1 Reason for Visit * Radiology Services (Routine/Next Available) - Authorized Specialty Diagnoses / Procedures Referred By Contac t Referred To Contact Nuclear Medicine Diagnoses 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) Weight loss Nausea Procedures PET CT EYE TO THIGH Clint Miramontes MD [address] [place] [address] [facility] [address] [place] [address] Referral ID Status Reason Start Date Expiration Date V isits Requested Visits Authorized [id number] Authorized 08/18/2023 10/02/2023 1 1 Encounter Details Date Type Department Care Team (Latest Contact Info) Description 09/16/2023 6:55 EST - 09/16/2023 23:59 EST Hospital [facility] Rad[facility] Nuclear Medicine and [facility] - [facility] [address] [place] [address] 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); Weight loss; Nausea Discharge Disposition: Home or Self Care Social [...] No 05/15/2017 documented as of this encounter Medications at Time of Discharge [...] Contact Info) Description 08/10/2024 16:00 EDT Appointment [facility] MRI [address] [place], [place] [id number] 08/16/2024 14:00 EDT EMILIA [facility] OBGYN Ultrasound [address] [place] [phone] 08/29/2024 14:00 EDT Office Visit [facility] OBGYN [address] [place] [phone] Ness Vilchis MD [address] [place] [address], [address] [place] [phone] 08/31/2024 16:00 EDT Office Visit [facility] Orthopedics & Sport Medicine [address] [place], [place] [phone] Reema Peoples PA-C [address] [facility] [address] [place], [place] [phone] 09/01/2024 9:30 EDT Office Visit [facility] Rheumatology [address] [place], [place] [phone] Lin Grider MD [address] [place] [address] [address] [place] [phone] 11/08/2024 14:00 EST Office Visit [facility] Adult Hematology & Oncology [address] [place], [place] [address] Luz Maria Peter, GABRIEL [address] [facility] [address] [place] [address] 11/22/2024 10:15 EST Office Visit [facility] Family Medicine - [place] [address] [place] [address] Clint Miramontes MD [address] [place] [phone] documented as of this encounter Procedures Procedure Name Priority Date/Time Associated Diagnosis Comments PET CT EYE TO THIGH Routine 09/16/2023 1 0:02 EST 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 ??No evidence of abnormal radiotracer uptake; [place] 1. 2. ??Additional incidental findings: Nonobstructing left nephrolithiasis, mild chronic right hydronephrosis, uterine fibroids I have personally reviewed the images and the above interpretation and agree with the findings. [id number] Narrative 09/16/2023 11:[address] EYE TO THIGH 09/16/2023 7:30 AM Signs and Symptoms: ??weight loss. Lymphoma Hx; Weight loss, unintended; weight loss. 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 The blood glucose level prior to injection was 97 mg/dl. The injection site was the left antecubital IV. Oral contrast was administered. Findings: HEAD/NECK: Pertinent findings: No abnormal radiotracer uptake. Incidental findings: Redemonstrated aneurysm coil in the right P-comm. CHEST: Pertinent findings: No abnormal radiotracer uptake. Incidental findings: Few scattered calcified granulomas. ABDOMEN/PELVIS: Pertinent findings: No abnormal radiotracer uptake. Incidental findings: Nonobstructing left nephrolithiasis. Redemonstrated chronic mild right hydronephrosis and proximal hydroureter, not significantly changed compared to June 08, 2023. Right renal cyst. Uterine fibroid. Redemonstrated left adnexal cystic lesion, not significantly changed compared to prior. MUSCULOSKELETAL: Pertinent findings: No abnormal radiotracer uptake. Incidental findings: No concerning osseous lesion. Multilevel degenerative changes in the spine. Procedure Note James Still MD - 09/16/[address] EYE TO THIGH 09/16/2023 7:30 AM Signs and Symptoms: weight loss. Lymphoma Hx; Weight loss, unintended;weight loss. Lymphoma Hx;C85.91:Lymphoma of lymph nodes of head and neckregion ([facility]);R63.4:Weight loss;R11.0:Nausea Comparison: CT abdomen pelvis June 08, 2023, CT chest May 27, 2022 Technique: Approximately 90 minutes following the IV injection of 7.5 mCi [id number], PET/CT imaging was obtained from the skull base toupper thighs. The blood glucose level prior to injection was 97 mg/dl. Theinjection site was the left antecubital IV. Oral contrast wasadministered. Findings: HEAD/NECK: Pertinent findings: No abnormal radiotracer uptake. Incidental findings: Redemonstrated aneurysm coil in the right P-comm. CHEST: Pertinent findings: No abnormal radiotracer uptake. Incidental findings: Few scattered calcified granulomas. ABDOMEN/PELVIS: Pertinent findings: No abnormal radiotracer uptake. Incidental findings: Nonobstructing left nephrolithiasis. Redemonstratedchronic mild right hydronephrosis and proximal hydroureter, notsignificantly changed compared to June 08, 2023. Right renal cyst.Uterine fibroid. Redemonstrated left adnexal cystic lesion, notsignificantly changed compared to prior. MUSCULOSKELETAL: Pertinent findings: No abnormal radiotracer uptake. Incidental findings: No concerning osseous lesion. Multilevel degenerativechanges in the spine. IMPRESSION 1. No evidence of abnormal radiotracer uptake; [place] 1. 2. Additional incidental findings: Nonobstructing left nephrolithiasis,mild chronic right hydronephrosis, uterine fibroids I have personally reviewed the images and the above interpretation andagree with the findings. 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) Weight loss Loss of weight Nausea Nausea alone documented in this encounter Administered Medications Inactive Administered Medications - up to 3 most recent administrations Medication Order MAR Action Action Date Dose Rate Site fludeoxyglucose (F-18) FDG injection 15 millicurie 15 millicurie, radiopharm IV, NOW X1, 1 dose, On Thu09/16/23 at 0815, Routine, Imaging Protocol Orders Given 09/16/2023 7:57 EST 7.5 millicuries documented in this encounter Care Teams Manager Of Compensation Relationship Specialty Start Date End Date Clint Miramontes MD [address] [place] [phone] PCP - General 08/23/19 documented as of this encounter
--- OUTSIDE RECORDS SUMMARY | 2024-08-07 13:35 | XMS_ITS | Encounter Summary ---
Author Organization [facility] Address [address] [place] [address] Care Team Providers Care Counter Supply Worker Name Role Phone Clint Miramontes MD Primary Care Provider [phone] Reason for Visit * Reason Comments Follow-up Encounter Details Date Type Department Care Team (Late st Contact Info) Description 06/13/2024 15:00 EDT Office Visit [facility] Orthopedics & Sport Medicine [address] [place], [place] [phone] Reema Peoples PA-C [address] [place] [address] [phone] Pain and swelling of left knee (Primary Dx) Social History Tobacco Use Types [...] place to sleep or slept in a chcf (including now)? No 11/07/2023 Interpersonal Safety Answer [...] Progress Notes * Reema Peoples PA-C - 06/13/2024 1500 EDT LV 12/30/23 HH - Left knee pain Repeat steroid injection performed Had 100% relief from previous injection performed 03/09/23 Last injection didn't help much Knee is way worse than it ever has been Some swelling Feels pain in back of thigh Having cramps Having some instability feeling Unable to be as active as she would like Complains of whole body problems Whole leg feels jiggly on the inside Some feelings of restless leg syndrome CHIEF COMPLAINT: Left knee pain SUBJECTIVE: Mel Ramirez is a 74 y.o. right hand dominant female who presents today with left knee pain. I been treating her for early arthritis, she has had 2 injections, the second injection wasnot super helpful. She is very swollen at this point, see above. The past medical, family and social history have been reviewed in the patient chart. I spent time preparing in advance of the visit today, which included obtaining and reviewing prior history and notes from the primary care provider and/or referring providers, as well as reviewing any relevant prior imaging and tests, which I also independently interpreted today Past Medical History: Diagnosis Date Aneurysm ([facility]) Aneurysm of coronary artery 2009 internal coronary artery Cancer ([facility]) lymphoma-marry marginal Chronic obstructive pulmonary disease ([facility]) 10/06/2019 Coil insertion 06/2010 PCOM aneurysm Colon polyp Hypercholesteremia Inguinal lymphadenopathy Mental disorder Osteoporosis 10/06/2019 Psychiatric problem anxiety Social History Tobacco Use Smoking status: Former Current packs/day: 0.00 Average packs/day: 1 pack/day for 18.7 years (18.7 ttl pk-yrs) Types: Cigarettes Start date: 1963 Quit date: 07/03/1982 Years since quittin.9 Smokeless tobacco: Never Tobacco comments: 1981 quit Substance Use Topics Alcohol use: No Past Surgical History: Procedure Laterality Date HERNIA REPAIR left groin LYMPH NODE BIOPSY left neck & node removal TONSILLECTOMY VAGINAL PROLAPSE REPAIR Allergies Allergen Reactions Other - See Comments Wasp stings- swollen local reactions, no throat swelling Crestor [Rosuvastatin] Rash Pravastatin Rash Current Outpatient Medications on File Prior to Visit Medication Sig Dispense Refill albuterol sulfate 90 mcg/actuation aero powdr breath act w/sensor Inhale 1 Puff as directed 6 timesdaily. 1 Each 3 aspirin 81 mg EC tablet Take 1 Tablet by mouth daily. beclomethasone HFA (QVAR REDIHALER) 80 mcg/actuation inhaler Inhale 1 Puff as directed 2 times daily. 10.6 g 3 cholecalciferol, Vitamin D3, 25 mcg (1,000 unit) tablet Take 2 Tablets by mouth daily. diazePAM (VALIUM) 2 mg tablet 1 tab PO bid PRN fying. 6 Tablet 3 inhalational spacing device (E-Z SPACER) Inhale 1 Device as directed 2 times daily. For use with Flovent inhaler. Dx: J44.9. 1 Device 0 LORazepam (ATIVAN) 1 mg tablet TAKE ONE TABLET BY MOUTH AT BEDTIME NEEDED FOR ANXIETY MAXIMUM DAILY DOSE = 1 30 Tablet 3 lovastatin (MEVACOR) 40 mg tablet TAKE TWO TABLETS BY MOUTH EVERY DAY 180 Tablet 3 No current facility-administered medications on file prior to visit. OBJECTIVE: There were no vitals taken for this visit. On physical exam, the patient is found to be a very pleasant and cooperative female who appears to be alert and oriented x 3. She is well-developed, well- nourished and in no significant distress. Breathing is unlabored. Skin is, pink and dry to inspection and palpation. Neurovascularly intact with good capillary refill. Sensation to light touch throughout the lower extremity intact. Upon inspection, there are no obvious areas of ecchymosis, joint deformity or atrophy. Joint effusion, moderate in the left knee. Range of motion is full in extension, she has limited flexion. Palpable Ralph's cyst, and tenderness to palpation minimally over this area. Prior radiographs of the knee independently reviewed. Very mild degenerative changes, tricompartmental. ASSESSMENT: Early knee osteoarthritis/degenerative meniscus PLAN: Large joint effusion, will drain it, give Kenalog injection, if no significant relief, would consider MRI. I did send the fluid for analysis. This note was prepared using voice recognition software and the EMR. There may be inadvertent errors and omissions. BARNEY Ponce 06/13/2024 * Reema Peoples PA-C - 06/13/2024 1500 EDTAssociated Order(s): Large Joint Injection/Arthrocentesis: L knee Post-Procedure Diagnose(s): Pain and swelling of left knee Procedure: Large Joint Injection/Arthrocentesis: L knee on 06/13/2024 [...] called to verify the correctpatient, procedure, equipment, computer systems support specialist and site/side marked as required. Patient was prepped and draped in the usual sterile fashion. documented in this encounter Plan of Treatment Upcoming Encounters Date Type Department Care Team (Late st Contact Info) Description 08/10/2024 16:00 EDT Appointment [facility] MRI [address] [place], [place] [phone] 08/16/2024 14:00 EDT EMILIA [facility] OBGYN Ultrasound [address] [place] [address] 08/29/2024 14:00 EDT Office Visit [facility] OBGYN [address] [place] [address] Ness Vilchis MD [address] [place], [place] [address], [address] [place] [phone] 08/31/2024 16:00 EDT Office Visit [facility] Orthopedics & Sport Medicine [address], [address] [place], [place] [phone] Reema Peoples PA-C [address] [facility] [address] [place], [place] [address] 09/01/2024 9:30 EDT Office Visit [facility] Rheumatology [address] [place] [address] [phone] Lin Grider MD [address] [place] [address] [address] [place] [phone] 11/08/2024 14:00 EST Office Visit [facility] Adult Hematology & Oncology [facility] [place] [address] Luz Maria Peter NP [address] [facility], [facility] [address] [place] [phone] 11/22/2024 10:15 EST Office Visit [facility] Family Medicine - [place] [address] [place] [address] Clint Miramontes MD [address] [place] [phone] documented as of this encounter Procedures Procedure Name Priority Date/Time Associated Diagnosis Comments LYME DISEASE, PCR, SYNOVIAL FLD Routine 06/13/2024 15:18 EDT Pain and swelling of left knee PATHOLOGY REVIEW FLUID OTHER Today 06/13/2024 15:18 [...] EDT Pain and swelling of left knee documented in this encounter Results * PATHOLOGY REVIEW FLUID OTHER (06/13/2024 15:18 EDT) Path Review Fluid, other SYNOVIAL FLUID REVIEW No malignant cells identified. Cells counted as others are compatible with synovial lining cells. ??Agree with the reported differential showing mixed acute and chronic inflammation. Darrin Borrego MD 06/14/2024 11:55 06/14/2024 11:56 EDT [facility] Fluid SYNOVIAL FLUID / Unknown 06/13/2024 15:18 EDT 06/13/2024 15:18 EDT Reema Peoples PA-C HEMATOLOGY & PF4 ORDERABLES Performing Organization Address City/[facility]/ZIP Co de Phone Number [facility] [address] [place] [address] * (ABNORMAL) SYNOVIAL FLUID DIFFERENTIAL (06/13/2024 15:18 EDT) Neutrophils, Synovial Fluid 24 10 - 24 % 06/13/2024 18:43 EDT [facility] Lymphocytes, Synovial Fluid 55(H) 10 - 20 % 06/13/2024 18:43 EDT [facility] Foard/Macro Synovial Fluid 20(L) 55 - 75 % 06/13/2024 18:43 EDT [facility] Other Cells, Synovial fluid 1 % 06/13/2024 18:43 EDT [facility] Fluid SYNOVIAL FLUID / Unknown 06/13/2024 15:18 EDT 06/13/2024 15:18 EDT Reema Peoples PA-C GEN LAB UNIT COLLECT ORDERABLES Performing Organization Address City/[facility]/ZIP Co de Phone Number [facility] [address] [place] [phone] * (ABNORMAL) SYNOVIAL FLUID CELL COUNT (06/13/2024 15:18 EDT) RBC, Synovial Fluid 10,000 /cmm 06/13/2024 18:10 EDT [facility] Nucleated Cells 2,654(H) <=200 /cmm 06/13/2024 18:10 EDT [facility] Comment, Synovial Fluid Yellow Slightly bloody 06/13/2024 18:10 EDT [facility] Fluid SYNOVIAL FLUID / Unknown 06/13/2024 15:18 EDT 06/13/2024 15:18 EDT Reema Peoples PA-C GEN LAB UNIT COLLECT ORDERABLES [facility] [address] [place] [address] * LYME DISEASE, PCR, SYNOVIAL FLD (06/13/2024 15:18 EDT) SPECIMEN SOURCE Left knee 18:38 EDT [facility] B. burgdorferi PCR Negative Negative 2023 18:38 EDT [facility] B. mayonii PCR Negative Negative 06/16/2024 18:38 EDT [facility] B. Garinii/B.afzelii PCR Negative Negative 06/16/2024 18:38 EDT [facility] LYME FLUID COMMENT SEE NOTE 2023 18:38 EDT [facility] Comment: If clinical features of illness are highly indicative of Lyme neuroborreliosis, additional serological testing would be recommended. ADDITIONAL INFORMATION This test was developed and its performance characteristics determined by [facility] in a manner consistent with CLIA requirements. This test has not been cleared or approved by the U.S. Food and Drug Administration. Test Performed by: [facility] [id number] Drop Wirer: Lizette Mendez Ph.D.; CLIA# [id number] Fluid SYNOVIAL FLUID / Unknown 06/13/2024 15:18 EDT 06/13/2024 15:18 EDT Reema Peoples PA-C CHEMISTRY & BLOOD GAS ORDERABLES Performing Organization Address [facility]/ZIP Co de Phone Number [address] [address] * CRYSTAL ANALYSIS FLUID ONLY (06/13/2024 15:18 EDT) Crystals Both intracellular and extracellular calcium pyrophosphate crystals present 06/13/2024 18:53 EDT [facility] Fluid SYNOVIAL FLUID / Unknown 06/13/2024 15:18 EDT 06/13/2024 15:18 EDT Reema Peoples PA-C GEN LAB UNIT COLLECT ORDERABLES Performing Organization Address [facility] Co de Phone Number [facility] [address] [place] [address] * [place] ARTHROCENTESIS ASPIR&/INJ MAJOR JT/BURSA W/O US (06/13/2024 15:00 EDT) Narrative [facility] - 06/13/2024 15:00 EDT [...] to verify the correct patient, procedure, equipment, computer systems support specialist and site/side marked as required. Patient was prepped and draped in the usual sterile fashion. Reema Peoples PA-C PROCEDURE/IL NOR SURGICAL ORDERABLES Performing Organization Address [facility] Co de Phone Number [facility] documented in this encounter Visit Diagnoses Diagnosis Pain and swelling of left knee- Primary documented in this encounter Administered Medications Inactive Administered Medications - up to 3 most recent administrations Medication Order MAR Action Action Date Dose Rate Site lidocaine (PF) 10 mg/mL (1 %) injection 4 mL 4 mL, other, Once PRN Procedure, 1 dose, Starting on Thu06/13/24 at 1500, Until Thu06/13/24 at 1500, Routine Given 06/13/2024 15:00 EDT 4 mL Left K nee triamcinolone acetonide (KENALOG-40) injection 40 mg 40 mg, other, Once PRN Procedure, 1 dose, Starting on Thu06/13/24 at 1500, Until Thu06/13/24 at 1500, Routine Given 06/13/2024 15:00 EDT 40 mg Left Knee documented in this encounter Care Teams Counter Supply Worker Relationship Specialty Start Date End Date Clint Miramontes MD [address] [place] [phone] PCP - General 08/23/19 documented as of this encounter
--- OUTSIDE RECORDS SUMMARY | 2024-08-07 13:35 | XMS_ITS | Encounter Summary ---
Author Organization [facility] Address [address] [place] [address] Care Team Providers Care Body Shop Estimator Name Role Phone Clint Miramontes MD Primary Care Provider [phone] Reason for Visit * Reason Onset Date Comments Medications Refill 02/01/2024 Encounter Details Date Type Department Care Team (Late st Contact Info) Description 02/01/2024 Telephone [facility] Family Medicine - [address] [address] Clint Miramontes MD [address] [place] [address] [phone] Medications Refill Social History Tobacco Use Types Packs/Day Years [...] to sleep or slept in a senior care (including now)? No 11/07/2023 Interpersonal Safety Answer [...] encounter Miscellaneous Notes * Telephone Encounter - Yolanda Vera - 02/05/2024 1004 EDT I have called her to let her know that JW had completed the form online. * Telephone Encounter - Yolanda Vera - 02/01/2024 0937 EDT Pt called to say that her [employer] card has to be renewed. She said that JW did this online for her last year. Please Advise [phone] documented in this encounter Plan of Treatment Upcoming Encounters Date Type Department Care Team (Late st Contact Info) Description 08/10/2024 16:00 EDT Appointment [facility] MRI [address] [place] [address] [phone] 08/16/2024 14:00 EDT EMILIA [facility] OBGYN Ultrasound [address] [place] [address] [phone] 08/29/2024 14:00 EDT Office Visit [facility] OBGYN [address] [place] [address] [phone] Ness Vilchis MD [address] [place] [address], [address] [place] [address] 08/31/2024 16:00 EDT Office Visit [facility] Orthopedics & Sport Medicine [address], [address] [place], [place] [phone] Reema Peoples, PAAbigail [address] [facility] [address] [place], [place] [phone] 09/01/2024 9:30 EDT Office Visit [facility] Rheumatology [address] [place] [address] [phone] Lin Grider MD [address] [place], [place] [address] [address] [place] [address] 11/08/2024 14:00 EST Office Visit [facility] Adult Hematology & Oncology [address] [place] [address], [place] [phone] Luz Maria Peter, GABRIEL [address] [place] [address], [facility] [address] [place] [address] 11/22/2024 10:15 EST Office Visit [facility] Family Medicine - [place] [address] [place] [address] Clint Miramontes MD [address] [place] [phone] documented as of this encounter Visit Diagnoses Not on filedocumented in this encounter Care Teams Body Shop Estimator Relationship Specialty Start Date End Date Clint Miramontes MD [address] [place] [phone] PCP - General 08/23/19 documented as of this encounter
--- OUTSIDE RECORDS SUMMARY | 2024-08-07 13:35 | XMS_ITS | Encounter Summary ---
Author Organization [facility] Address [address] [place] [address] Care Team Providers Care Registered Dental Assistant Name Role Phone Clint Miramontes MD Primary Care Provider [phone] Reason for Visit * Reason Comments Medications Refill Encounter Details Date Type Department Care Team (Late st Contact Info) Description 04/24/[address] [facility] Family Medicine [address] [address] Clint Miramontes MD [address] [place] [phone] Medications Refill Social History Tobacco Use Types [...] No 05/15/2017 documented as of this encounter Ordered Prescriptions Prescription Sig Dispensed Refills Start Date End Da te LORazepam (ATIVAN) 1 mg tablet TAKE ONE TABLET BY MOUTH AT BEDTIME NEEDED FOR ANXIETY MAXIMUM DAILY DOSE = 1 30 Tablet 3 04/25/2024 documented in this encounter Miscellaneous Notes * Telephone Encounter - Christina Watt RN - 04/25/2024 4801 EDT Electronic request received from pharmacy. CAROL: DONNA 11/19/23 Follow-up: 05/19/24 VPMS reviewed: Lorazepam 1 Mg Tablet. Quantity 30. Days 30. Last Filled 03/27/24. Last sold 03/29/24. Rx pended for approval - controlled substance documented in this encounter Plan of Treatment Upcoming Encounters Date Type Department Care Team (Late st Contact Info) Description 08/10/2024 16:[address] [facility] MRI [address] [place], [place] [address] 08/16/2024 14:[address] [facility] OBGYN Ultrasound [address] [place] [phone] 08/29/2024 14:[address] [facility] OBGYN [address] [place] [address] [phone] Ness Vilchis MD [address] [place] [address], [address] [place] [phone] 08/31/2024 16:[address] [facility] Orthopedics & Sport Medicine [address], [address] [place], [place] [phone] Reema Peoples PA-C [address] [facility] [address] [place], [place] [phone] 09/01/2024 9:[address] [facility] Rheumatology [address] [place] [address] [phone] Lin Grider MD [address] [place], [place] [address] [address] [place] [phone] 11/08/2024 14:[address] [facility] Adult Hematology & Oncology [address] [place] [address] [phone] Luz Maria Peter, GABRIEL [address] [facility], [facility] [address] [place] [address] 11/22/2024 10:[address] [facility] Family Medicine - [place] [address] [place] [address] Clint Miramontes MD [address] [place] [phone] documented as of this encounter Visit Diagnoses Not on filedocumented in this encounter Discontinued Medications Medication Sig Discontinue Reason Start Date End Da te LORazepam (ATIVAN) 1 mg tablet TAKE ONE TABLET BY MOUTH AT BEDTIME NEEDED FOR ANXIETY MAXIMUM DAILY DOSE = 1 12/16/2023 04/25/2024 documented as of this encounter Care Teams Registered Dental Assistant Relationship Specialty Start Date End Date Clint Miramontes MD [address] [place] [address] [phone] PCP - General 08/23/19 documented as of this encounter
--- OUTSIDE RECORDS SUMMARY | 2024-08-07 13:35 | XMS_ITS | Encounter Summary ---
Author Organization [facility] Address [address] [place] [address] Care Team Providers Care Machine Cloth Trimmer Name Role Phone Clint Miramontes MD Primary Care Provider Reason for Visit * Reason Comments Follow-up Surveillance for his tory of marginal zone lymphoma Encounter Details Date Type Department Care Team (Late st Contact Info) Description 09/07/2023 10:30 EST Office Visit [facility] Adult Hematology & Oncology [facility] [place] [address] Luz Maria Peter NP [address] [place] [address] [address] [place] [address] History of lymphoma (Primary Dx); 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); Anxiety; Hypothyroidism, unspecified type Social History Tobacco Use Types Packs/Day Years [...] Sign Reading Time Taken Comments Blood Pressure 140/60 09/07/2023 1024 EST Pulse 86 09/07/2023 1024 EST Temperature - - Respiratory Rate - - Oxygen Saturation 96% 09/07/2023 1024 EST Inhaled Oxygen Concentration - - Weight 42.6 kg (94 lb) 09/07/2023 1024 EST Height - - Body Mass Index 18.99 09/01/2023 0923 EDT documented in this encounter Functional Status Functional [...] Notes * Luz Maria Peter, GABRIEL - 09/07/2023 1030 EST CC: Chief Complaint Patient presents with ??? Follow-up Surveillance for history of marginal zone lymphoma Hematology/Oncology Problem List: ?? Diagnosis ??? 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) ? 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 Clinical stage IIIa disease with numerous small lymph nodes above and below the diaphragm. No treatmentat this time. Subjective: Ms. Ramirez is here for follow up in the setting of marginal zone lymphoma. She eliminated dairy fat which she feels helped improve previously elevated amylase/lipase. Denies abdominal discomfort, constipation or diarrhea. Has gained a couple pounds. Attempting to add more protein to her diet. Hasa PET/CT next week. Review of Systems: All 10 systems have been reviewed and are negative except for the mentioned above. Medications: Current Outpatient Medications Medication ??? albuterol sulfate 90 mcg/actuation aero powdr breath act w/sensor ??? aspirin 81 mg EC tablet ??? cholecalciferol, Vitamin D3, 25 mcg (1,000 unit) tablet ??? diazePAM (VALIUM) 2 mg tablet ??? FLOVENT HFA 110 mcg/actuation inhaler ??? inhalational spacing device (E-Z SPACER) ??? LORazepam (ATIVAN) 1 mg tablet ??? lovastatin (MEVACOR) 40 mg tablet No current facility-administered medications for this visit. Objective: VS: BP 140/60 Pulse 86 Wt (!) 42.6 kg (94 lb) SpO2 96% BMI 18.99 kg/m?? Social History Socioeconomic History ??? Marital status: Single Tobacco Use ??? Smoking status: Former Current packs/day: 0.00 Average packs/day: 1 pack/day for 18.7 years (18.7 ttl pk-yrs) Types: Cigarettes Start date: 1963 Quit date: 07/03/1982 Years since quittin.2 ??? Smokeless tobacco: Never ??? Tobacco comments: 1981 quit Vaping Use ??? Vaping Use: Former ??? Substances: THC ??? Devices: Pre-filled or refillable cartridge Substance and Sexual Activity ??? Alcohol use: No ??? Drug use: Yes Frequency: 5.0 times per week Types: Marijuana Comment: smokes and does edibles Physical Exam: General appearance: Pleasant adult female in NAD. Skin: Skin color, temperature, turgor normal. No rashes or lesions. HENT: Sclera anicteric. No facial pallor. Lungs: Heart: Extremities: Lymph nodes: No palpable cervical or supraclavicular, adenopathy. Neuro: Alert and oriented x 3. Normal affect. Normal gait. Performance Status:0 Data Review: Labs: Results for orders placed or performed in visit on 09/07/23 COMPLETE BLOOD COUNT AND DIFFERENTIAL Result Value Ref Range WBC 5.55 4.00 - 12.40 K/cmm RBC 4.58 3.86 - 5.04 M/cmm Hemoglobin 13.5 11.6 - 15.2 g/dL HCT 41.1 >=21.0 % MCV 90 81 - 98 fL MCH 29.5 26.7 - 33.3 pg MCHC 32.8 32.1 - 35.9 g/dL RDW-CV 12.9 <14.7 % RDW-SD 41.5 <50.4 fl PLT 211 141 - 377 K/cmm MPV 8.8 (L) 9.5 - 12.7 fL % Neutrophils 60.2 % % Lymphocytes 28.8 % % Monocytes 7.9 % % Eosinophils 2.7 % % Basophils 0.4 % % Immature Grans Absolute Neutrophils 3.34 2.20 - 8.85 K/cmm Absolute Lymphocytes 1.60 1.09 - 3.30 K/cmm Absolute Monocytes 0.44 0.10 - 0.80 K/cmm Absolute Eosinophils 0.15 0.03 - 0.61 K/cmm ABS Basophils 0.02 0.01 - 0.11 K/cmm Absolute Immature Grans Type of Differential: Auto COMPREHENSIVE METABOLIC PANEL (CMP) Result Value Ref Range Sodium 139 136 - 145 mmol/L Potassium 4.6 3.5 - 5.0 mmol/L Chloride 99 96 - 110 mmol/L CO2 Total 30 22 - 32 mmol/L Glucose 94 70 - 99 mg/dl BUN 21 10 - 26 mg/dL Creatinine 0.66 0.52 - 1.04 mg/dL eGFR 92 >60 mL/min/1.73m2 Total Protein 7.6 6.3 - 8.2 g/dL Albumin 4.7 3.4 - 4.9 g/dL Alkaline Phosphatase 69 38 - 126 U/L AST 26 15 - 46 U/L ALT 18 <35 U/L Bilirubin, Total 0.9 <1.4 mg/dL Calcium 10.0 8.5 - 10.5 mg/dL Albumin/Globulin Ratio 1.6 1.0 - 2.5 g/dL Anion Gap 10 5 - 14 mmol/L LDH Result Value Ref Range LDH 178 120 - 246 U/L TSH Result Value Ref Range TSH 1.20 0.47 - 4.68 mIU/L Assessment/Plan: Ms. Ramirez is a 72 yo female with marginal zone lymphoma on surveillance. CT scans from 05/27/22 reviewed with showed no evidence of pathologically enlarged nodes. Noted is a 2.8 cm adenexal cystic lesion unchanged from 07/2022. Weight loss: Working diligently to increase protein/calric intake. Has had multiple studies recently including CA 125, endoscopy, labs which are normal. Has a PET CT on 09/26/23 to r/o possible recurrent lymphoma. Continues to denies adenopathy of night sweats. LDH remains normal. Pending from today Will return to clinic in 3 months. Cc: Clint Miramontes MD 30 minutes in face to face contact with 25 minutes counseling side effect, treatment management andcoordination of care. Luz Maria Peter ANP/SUBPOENA SERVER [facility] * Sydni Martínez RN - 09/07/2023 1030 EST Suspicion of Abuse: no - If yes, please document evidence: - Assessed on: 09/07/23 10:30 - Assessed by: SYDNI MARTÍNEZ RN Procedures: - Venipuncture Performed by: SYDNI MARTÍNEZ, ATTILA Site Collected: Right Antecubital Space Volume Withdrawn: LAV EDTA 3.0 mL and [place] SST 8.5 mL Patient Response:Patient tolerated venipuncture well and 23G Butterfly used Number of attempts:1 Collected on: 09/07/23 10:42 Supervising Provider: Jessica ePter NP documented in this encounter Plan of Treatment Upcoming Encounters Date Type Department Care Team (Late st Contact Info) Description 08/10/2024 16:00 EDT Appointment [facility] MRI [address] [place], [place] [phone] 08/16/2024 14:00 EDT EMILIA [facility] OBGYN Ultrasound [address] [place] [address] 08/29/2024 14:00 EDT Office Visit [facility] OBGYN [address] [place], [place] [address] Ness Vilchis MD [address] [facility], [address] [place] [phone] 08/31/2024 16:00 EDT Office Visit [facility] Orthopedics & Sport Medicine [address] [place], [place] [phone] Reema Pepoles PA-C [address] [facility] [address] [place], [place] [phone] 09/01/2024 9:30 EDT Office Visit [facility] Rheumatology [address] [place] [address] Lin Grider MD [address] [facility] [address] [place] [address] 11/08/2024 14:00 EST Office Visit [facility] Adult Hematology & Oncology [address] [place] [address], [place] [address] Luz Maria Peter NP [address] [facility], [facility] [address] [place] [address] 11/22/2024 10:15 EST Office Visit [facility] Family Medicine - [place] [address] [place] [phone] Clint Miramontes MD [address] [place] [phone] documented as of this encounter Procedures Procedure Name Priority Date/Time Associated Diagnosis Comments COMPLETE BLOOD COUNT AND DIFFERENTIAL Routine 09/07/2023 10:37 EST History of lymphoma 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) TSH Routine 09/07/2023 10:37 EST Hypothyroidism, unspecified type LDH Routine 09/07/2023 10:37 EST History of lymphoma 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) COMPREHENSIVE METABOLIC PANEL (CMP) Routine 09/07/2023 10:37 EST History of lymphoma 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) documented in this encounter Results * TSH (09/07/2023 10:37 EST) TSH 1.20 0.47 - 4.68 mIU/L 09/07/2023 13:03 [facility] Blood VENOUS BLOOD / Unknown Venipuncture / Unknown 09/07/2023 10:37 EST 09/07/2023 10:37 EST Narrative [facility] - 09/07/2023 13:03 EST The results of this assay can be falsely lowered due to the consumption of Biotin. Clint Miramontes MD CHEMISTRY & BLOOD GA S ORDERABLES Performing Organization Address [facility]/ZIP Co de Phone Number [facility] [address] [place] [address] * LDH (09/07/2023 10:37 EST) Pathologist [facility] LDH 178 120 - 246 U/L 09/07/2023 12:28 [facility] Blood VENOUS BLOOD / Unknown Venipuncture / Unknown 09/07/2023 10:37 EST 09/07/2023 10:37 EST Luz Maria Peter NP CHEMISTRY & BLOOD GAS ORDERABLES Performing Organization Address City/[facility]/ZIP Co de Phone Number [facility] [address] [place] [address] * COMPREHENSIVE METABOLIC PANEL (CMP) (09/07/2023 10:37 EST) Pathologist [facility] Sodium 139 136 - 145 mmol/L 09/07/2023 12:28 [facility] Potassium 4.6 3.5 - 5.0 mmol/L 09/07/2023 12:28 [facility] Chloride 99 96 - 110 mmol/L 09/07/2023 12:28 [facility] CO2 Total 30 22 - 32 mmol/L 09/07/2023 12:28 [facility] Glucose 94 70 - 99 mg/dl 09/07/2023 12:28 [facility] BUN 21 10 - 26 mg/dL 09/07/2023 12:28 [facility] Creatinine 0.66 0.52 - 1.04 mg/dL 09/07/2023 12:28 [facility] eGFR 92 >60 mL/min/1.7 3m2 09/07/2023 12:28 [facility] Total Protein 7.6 6.3 - 8.2 g/dL 09/07/2023 12:28 [facility] Albumin 4.7 3.4 - 4.9 g/dL 09/07/2023 12:28 [facility] Alkaline Phosphatase 69 38 - 126 U/L 09/07/2023 12:28 [facility] AST 26 15 - 46 U/L 09/07/2023 12:28 [facility] ALT 18 <35 U/L 09/07/2023 12:28 [facility] Bilirubin, Total 0.9 <1.4 mg/dL 09/07/20 12:28 [facility] Calcium 10.0 8.5 - 10.5 mg/dL 09/07/2023 12:28 [facility] Albumin/Globulin Ratio 1.6 1.0 - 2.5 g/dL 09/07/2023 12:28 [facility] Anion Gap 10 5 - 14 mmol/L 09/07/2023 12:28 [facility] Blood VENOUS BLOOD / Unknown Venipuncture / Unknown 09/07/2023 10:37 EST 09/07/2023 10:37 EST Luz Maria Peter NP CHEMISTRY & BLOOD GAS ORDERABLES Performing Organization Address City/State/[facility] Co de Phone Number [facility] [address] [place] [address] * (ABNORMAL) COMPLETE BLOOD COUNT AND DIFFERENTIAL (09/07/2023 10:37 EST) WBC 5.55 4.00 - 12.40 K/cmm 09/07/2023 10:44 EST [facility] [place] RBC 4.58 3.86 - 5.04 M/cmm 09/07/2023 10:44 EST [facility] [place] Hemoglobin 13.5 11.6 - 15.2 g/dL 09/07/2023 10:44 EST [facility] HCT 41.1 >=21.0 % 09/07/2023 10:44 EST [facility] [place] MCV 90 81 - 98 fL 09/07/2023 10:44 [facility] [place] MCH 29.5 26.7 - 33.3 pg 09/07/2023 10:44 [facility] MCHC 32.8 32.1 - 35.9 g/dL 09/07/2023 10:44 [facility] RDW-CV 12.9 <14.7 % 09/07/2023 10:44 [facility] RDW-SD 41.5 <50.4 fl 09/07/2023 10:44 [facility] PLT 211 141 - 377 K/cmm 09/07/2023 10:44 [facility] MPV 8.8(L) 9.5 - 12.7 fL 09/07/2023 10:44 [facility] % Neutrophils 60.2 % 09/07/2023 10:44 [facility] % Lymphocytes 28.8 % 09/07/2023 10:44 [facility] % Monocytes 7.9 % 09/07/2023 10:44 [facility] % Eosinophils 2.7 % 09/07/2023 10:44 [facility] % Basophils 0.4 % 09/07/2023 10:44 [facility] % Immature Grans 09/07/20 10:44 [facility] Absolute Neutrophils 3.34 2.20 - 8.85 K/cmm 09/07/2023 10:44 [facility] Absolute Lymphocytes 1.60 1.09 - 3.30 K/cmm 09/07/2023 10:44 [facility] Absolute Monocytes 0.44 0.10 - 0.80 K/cmm 09/07/2023 10:44 [facility] Absolute Eosinophils 0.15 0.03 - 0.61 K/cmm 09/07/2023 10:44 [facility] ABS Basophils 0.02 0.01 - 0.11 K/cmm 09/07/2023 10:44 EST [facility] Absolute Immature Grans 09/07/2023 10:44 EST [facility] Type of Differential: Auto 09/07/2023 10:44 EST [facility] Blood VENOUS BLOOD / Unknown Venipuncture / Unknown 09/07/2023 10:37 EST 09/07/2023 10:37 EST Luz Maria Peter BACKHOE OPERATOR PACKAGES & DNA PRO BE ORDERABLES [facility] Medical Office [address] documented in this encounter Visit Diagnoses Diagnosis History of lymphoma- Primary Personal history of other lymphatic and hematopoietic neoplasm 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) Anxiety Anxiety state, unspecified Hypothyroidism, unspecified type documented in this encounter Care Teams Machine Cloth Trimmer Relationship Specialty Start Date End Date Clint Miramontes MD [address] [place] [phone] PCP - General 08/23/19 documented as of this encounter
--- OUTSIDE RECORDS SUMMARY | 2024-08-07 13:35 | XMS_ITS | Encounter Summary ---
Author Organization [facility] Address [address] [place] [address] Care Team Providers Care Rib Matcher And Fitter Name Role Phone Clint Miramontes MD Primary Care Provider [phone] Reason for Visit * Reason Comments Medications Refill Encounter Details Date Type Department Care Team (Late st Contact Info) Description 12/16/2023 Refill [facility] Family Medicine - [place] [address] [place] [phone] Anish Álvarez, STEVENC [address] [place] [address] [phone] Medications Refill Social History Tobacco Use Types [...] place to sleep or slept in a penitentiary (including now)? No 11/07/2023 Interpersonal Safety Answer [...] DAILY DOSE = 1 30 Tablet 3 12/16/2023 04/25/2024 documented in this encounter Miscellaneous Notes * Telephone Encounter - Maci Farrar RN - 12/16/2023 0928 EST Electronic request received from pharmacy. CAROL: AWV 11/19/23 Follow-up: 05/19/24 Per [facility]MS, Lorazepam last filled 11/19/23 #30 for 30 days Rx loaded for your review documented in this encounter Plan of Treatment Upcoming Encounters Date Type Department Care Team (Late st Contact Info) Description 08/10/2024 16:00 EDT Appointment [facility] MRI [address] [place] [address] [phone] 08/16/2024 14:00 EDT EMILIA [facility] OBGYN Ultrasound [address] [place] [address] 08/29/2024 14:00 EDT Office Visit [facility] OBGYN [address] [place] [address] [phone] Ness Vilchis MD [address] [place] [address], [address] [place] [phone] 08/31/2024 16:00 EDT Office Visit [facility] Orthopedics & Sport Medicine [address], [address] [place], [place] [phone] Reema Peoples PA-C [address] [facility] [address] [place], [place] [phone] 09/01/2024 9:30 EDT Office Visit [facility] Rheumatology [address] [place] [phone] Lin Grider MD [address] [place] [address] [address] [address] [place] [address] 11/08/2024 14:00 EST Office Visit [facility] Adult Hematology & Oncology [address] [place] [phone] Luz Mraia Peter, GABRIEL [address] [place] [address], [facility] [place] [address] 11/22/2024 10:15 EST Office Visit [facility] Family Medicine - [place] [address] [place] [phone] Clint Miramontes MD [address] [place] [address] [phone] documented as of this encounter Visit Diagnoses Not on filedocumented in this encounter Discontinued Medications Medication Sig Discontinue Reason Start Date End Da te LORazepam (ATIVAN) 1 mg tablet TAKE ONE TABLET BY MOUTH AT BEDTIME NEEDED FOR ANXIETY Strength: 1 mg 08/14/2023 12/16/2023 documented as of this encounter Care Teams Rib Matcher And Fitter Relationship Specialty Start Date End Date Clint Miramontes MD [address] [place] [phone] PCP - General 08/23/19 documented as of this encounter
--- OUTSIDE RECORDS SUMMARY | 2024-08-07 13:35 | XMS_ITS | Encounter Summary ---
Author Organization [facility] Address [address] [place] [address] Care Team Providers Care Medical Physicist Name Role Phone Clint Miramontes MD Primary Care Provider [phone] Reason for Visit * Reason Comments Medications Refill Encounter Details Date Type Department Care Team (Late st Contact Info) Description 09/11/2023 Refill [facility] Family Medicine [facility] [address] [place] [phone] Clint Miramontes MD [address] [place] [address] [phone] Medications Refill Social History Tobacco Use Types [...] Dispensed Refills Start Date End Da te lovastatin (MEVACOR) 40 mg tablet TAKE TWO TABLETS BY MOUTH EVERY DAY 180 Tablet 3 09/11/2023 documented in this encounter Miscellaneous Notes * Telephone Encounter - Azul Hess RN - 09/11/2023 0948 EST Medication Requested: Lovastatin Last OV: 08/13/2023 Next OV: 11/19/2023 Last Lipids 06/29/23; Last CMP 09/07/23 Pharmacy Of Choice: [facility] Meets refill criteria. Rx sent. documented in this encounter Plan of Treatment Upcoming Encounters Date Type Department Care Team (Late st Contact Info) Description 08/10/2024 16:00 EDT Appointment [facility] MRI [address] [place], [place] [phone] 08/16/2024 14:00 EDT EMILIA [facility] OBGYN Ultrasound [address] [place], [place] [address] 08/29/2024 14:00 EDT Office Visit [facility] OBGYN [address] [place], [place] [phone] Ness Vilchis MD [address] [facility] [place] [address] 08/31/2024 16:00 EDT Office Visit [facility] Orthopedics & Sport Medicine [address], [address] [place], [place] [phone] Reema Peoples PA-C [address] [facility] [address] [place], [place] [phone] 09/01/2024 9:30 EDT Office Visit [facility] Rheumatology [address] [place] [address] Lni Grider MD 130 [facility] [address] [place] [address] 11/08/2024 14:00 EST Office Visit [facility] Adult Hematology & Oncology [address] [place] [address], [place] [address] Luz Maria Peter NP [address] [facility], [facility] [address] [place] [address] 11/22/2024 10:15 EST Office Visit [facility] Family Medicine - [place] [address] [place] [phone] Clint Miramontes MD [address] [place] [phone] documented as of this encounter Visit Diagnoses Not on filedocumented in this encounter Discontinued Medications Medication Sig Discontinue Reason Start Date End Da te lovastatin (MEVACOR) 40 mg tablet TAKE TWO TABLETS BY MOUTH EVERY DAY 07/17/2022 09/11/2023 documented as of this encounter Care Teams Medical Physicist Relationship Specialty Start Date End Date Clint Miramontes MD [address] [place] [phone] PCP - General 08/23/19 documented as of this encounter
--- OUTSIDE RECORDS SUMMARY | 2024-08-07 13:35 | XMS_ITS | Encounter Summary ---
Author Organization [facility] Address [address] [place] [address] Care Team Providers Care Flavoring Machine Operator Name Role Phone Clint Miramontes MD Primary Care Provider [phone] Reason for Visit * Reason Onset Date Comments Prior Auth, Medication 05/19/2024 Encounter Details Date Type Department Care Team (Late st Contact Info) Description 05/19/2024 Telephone [facility] - [address] [address] Luz Maria Hdz RN Prior Auth, Medication Social History Tobacco Use Types Packs/Day Years [...] place to sleep or slept in a jail (including now)? No 11/07/2023 Interpersonal Safety Answer [...] Dispensed Refills Start Date End Da te beclomethasone HFA (QVAR REDIHALER) 80 mcg/actuation inhaler Inhale 1 Puff as directed 2 times daily. 10.6 g 3 05/19/2024 documented in this encounter Miscellaneous Notes * Telephone Encounter - Luz Maria Hdz, ATTILA - 05/23/2024 1604 EDT Mel only uses her pro-air maybe once a week. She is willing to try symbicort if you think that is needed she is wondering if she even needs a long acting inhaler she said she hardly ever used it. * Telephone Encounter - Luz Maria Hdz RN - 05/23/2024 1546 EDT Unfortunately she will have to meet her deductible and the pharmacist said that there is nothing else in this class that will cost any less. Is there another class of inhaler that may be helpful for Mel. * Telephone Encounter - Yolanda Vera - 05/23/2024 1524 EDT Pt called and said she did not want to pay 250.00 for QVAR.. Has Flovent been discontinued? Is there a different Inhaler/ She did get Pro Air. Please Advise [phone] * Telephone Encounter - Luz Maria Hdz RN - 05/19/2024 1223 EDT PA denied for fluticasone HFA due to not trying covered alternatives. The following alternatives are the preferred alternatives: ARNUITY ELLIPTA, ASMANEX HFA ASMANEX TWISTHALER 120 METERED QVAR REDIHALER. Please advise on covered alternatives. documented in this encounter Plan of Treatment Upcoming Encounters Date Type Department Care Team (Late st Contact Info) Description 08/10/2024 16:00 EDT Appointment [facility] MRI [address] [place] [address] 08/16/2024 14:00 EDT EMILIA [facility] OBGYN Ultrasound [address] [place] [address] 08/29/2024 14:00 EDT Office Visit [facility] OBGYN [address] [place] [address] Ness Vilchis MD 130 [facility], [address] [place] [phone] 08/31/2024 16:00 EDT Office Visit [facility] Orthopedics & Sport Medicine [address], [address] [place], [place] [phone] Reema Peoples PA-C [address] [facility] [address] [place] [address] 09/01/2024 9:30 EDT Office Visit [facility] Rheumatology [address] [place], [place] [phone] Lin Grider MD 130 [facility] [address] [place] [address] 11/08/2024 14:00 EST Office Visit [facility] Adult Hematology & Oncology [address] [place] [address], [place] [phone] Luz Maria Peter NP 130 [facility] [address] [place] [address] 11/22/2024 10:15 EST Office Visit [facility] Family Medicine - [place] [address] [place] [phone] Clint Miramontes MD [address] [place] [phone] documented as of this encounter Visit Diagnoses Not on filedocumented in this encounter Discontinued Medications Medication Sig Discontinue Reason Start Date End Da te fluticasone propionate (FLOVENT HFA) 110 mcg/actuation inhaler Inhale 2 Puffs as directed every 12 hours. 05/19/2024 05/19/2024 documented as of this encounter Care Teams Flavoring Machine Operator Relationship Specialty Start Date End Date Clint Miramontes MD [address] [place] [address] PCP - General 08/23/19 documented as of this encounter
--- OUTSIDE RECORDS SUMMARY | 2024-08-07 13:35 | XMS_ITS | Encounter Summary ---
Author Organization [facility] Address [address] [place] [address] Care Team Providers Care Bridge Worker Apprentice Name Role Phone Clint Miramontes MD Primary Care Provider [phone] Encounter Details Date Type Department Care Team (Late st Contact Info) Description 08/19/2023 Orders Only [facility] Radiology - [facility] [address] [place], [place] [address] Manjit Yin MD [address] [place] [phone] Social History Tobacco Use Types Packs/Day Years [...] No 05/15/2017 documented as of this encounter Plan of Treatment Upcoming Encounters Date Type Department Care Team (Late st Contact Info) Description 08/10/2024 16:00 EDT Appointment [facility] MRI [address] [place], [place] [address] 08/16/2024 14:00 EDT EMILIA [facility] OBGYN Ultrasound [address] [place] [address] 08/29/2024 14:00 EDT Office Visit [facility] OBGYN [address] [place] [phone] Ness Vilchis MD [address] [place] [address], [address] [place] [phone] 08/31/2024 16:00 EDT Office Visit [facility] Orthopedics & Sport Medicine [address] [place], [place] [phone] Reema Peoples, PA-C 1311 [facility] [address] [place], [place] [phone] 09/01/2024 9:30 EDT Office Visit [facility] Rheumatology [address] [place] [phone] Lin Grider MD [address] [place] [address] [address] [place] [phone] 11/08/2024 14:00 EST Office Visit [facility] Adult Hematology & Oncology [address] [place] [address], [place] [phone] Luz Maria Peter, GABRIEL [address] [place] [address], [facility] [address] [place] [address] 11/22/2024 10:15 EST Office Visit [facility] Family Medicine - [place] [address] [place] [address] Clint Miramontes MD [address] [place] [phone] documented as of this encounter Visit Diagnoses Not on filedocumented in this encounter Care Teams Bridge Worker Apprentice Relationship Specialty Start Date End Date Clint Miramontes MD [address] [place] [phone] PCP - General 08/23/19 documented as of this encounter
--- OUTSIDE RECORDS SUMMARY | 2024-08-07 13:35 | XMS_ITS | Encounter Summary ---
Author Organization [facility] Address [address] [place] [address] Care Team Providers Care Supervisor Cloth Winding Name Role Phone Clint Miramontes MD Primary Care Provider [phone] Reason for Referral * Radiology Services (Routine/Next Available) - Authorization Not Required Specialty Diagnoses / Procedures Referred By Annia gan Referred To Contact Radiology Diagnoses Pain and swelling of left knee Internal derangement of left knee Procedures MR KNEE WO CONTRAST LEFT Reema Peoples PA-C 1311 [facility] [address] [place] [id number] [facility] Referral ID Status Reason Start Date Expiration Date Visits Requested Visits Authorized [id number] Authorization Not Required 07/18/2024 1 1 Reason for Visit * Reason Onset Date Comments Other 07/13/2024 Encounter Details Date Type Department Care Team (Late st Contact Info) Description 07/13/2024 Telephone [facility] - [facility] Orthopedics & Sport Medicine [address], [address] [place] [address] Reema Peoples PA-C 1311 [facility] [address] [place], [place] [phone] Other Social History Tobacco Use Types Packs/Day Years Used Date Smoking Tobacco: Former Cigarettes 1 18.7 1 304 - 07/03/1982 Smokeless Tobacco: Never Comments:1981 quit [...] place to sleep or slept in a group home (including now)? No 11/07/2023 Interpersonal Safety Answer Date Record ed How often does anyone, lambertou rut family, hit, punch or physically hurt [...] Telephone Encounter - Nadira Mckeon RN - 07/18/2024 1001 EDT MRI order placed * Telephone Encounter - Nadira Mckeon RN - 07/14/2024 0944 EDT Per HH - order MRI and follow up with either her or total joint surgeons. Attempted to call Ms. Ramirez - no answer and voice mall message left. Edusont message sent to the patient also. * Telephone Encounter - Nadira Mckeon RN - 07/13/2024 1103 EDT Reema - please advise. She received a left knee steroid injection on 06/13/24. You mentioned the possibility of MRI if the steroid wasn't helping much. * Telephone Encounter - Kaia Geiger - 07/13/2024 0936 EDT T/C received from Ms. Ramirez stating that she is having the same pain on the medial side of the left knee cap; however, the pain is now affecting her ambulation. Ms. Ramirez stated that Thursday (07/11) was onset of pain, and she thinks that it could be contributed to the uneven ground that [place]. Ms. Ramirez is wondering what else she can do to help mitigate pain with ambulation. Ms. Ramirez can be reached at to discuss. documented in this encounter Plan of Treatment Upcoming Encounters Date Type Department Care Team (Fabricio miller Contact Info) Description 08/10/2024 16:00 EDT Appointment [facility] MRI 130 [facility], [place] [phone] 08/16/2024 14:00 EDT EMILIA [facility] OBGYN Ultrasound [address] [place] [address] 08/29/2024 14:00 EDT Office Visit [facility] OBGYN [address] [place], [place] [address] Ness Vilchis MD 130 [facility], [address] [place] [address] 08/31/2024 16:00 EDT Office Visit [facility] Orthopedics & Sport Medicine [address], [address] [place] [address] Reema Peoples, PA-C 1311 [facility] [address] [place], [place] [phone] 09/01/2024 9:30 EDT Office Visit [facility] Rheumatology [address] [place] [phone] Lin Grider MD [address] [place] [address] [address] [place] [address] 11/08/2024 14:00 EST Office Visit [facility] Adult Hematology & Oncology [address] [place] [address], [place] [phone] Luz Maria Peter, GABRIEL 130 [facility], [facility] [address] [place] [address] 11/22/2024 10:15 EST Office Visit [facility] Family Medicine - [place] [address] [place] [address] Clint Miramontes MD [address] [place] [phone] Scheduled Orders Name Type Priority Associated Diagnoses Orde r Schedule MR KNEE WO CONTRAST LEFT Imaging Routine Pain and swelling of left knee Internal derangement of left knee 1 Occurrences starting 07/18/2024 until 01/15/2026 documented as of this encounter Visit Diagnoses Diagnosis Pain and swelling of left knee- Primary Internal derangement of left knee Unspecified internal derangement of knee documented in this encounter Care Teams Supervisor Cloth Winding Relationship Specialty Start Date End Date Clint Miramontes MD [address] [place] [address] PCP - General 08/23/19 documented as of this encounter
--- OUTSIDE RECORDS SUMMARY | 2024-08-07 13:35 | XMS_ITS | Encounter Summary ---
Author Organization [facility] Address [address] [place] [address] Care Team Providers Care Cut Off Sawyer Name Role Phone Clint Miramontes MD Primary Care Provider [phone] Reason for Visit * Reason Onset Date Comments Other 06/29/2024 Encounter Details Date Type Department Care Team (Late st Contact Info) Description 06/29/2024 Telephone [facility] - [facility] Orthopedics & Sport Medicine [address], [address] [place] [address] Reema Peoples PA-C [address] [facility] [address] [place], [place] [phone] Other Social History Tobacco Use Types Packs/Day [...] place to sleep or slept in a care home (including now)? No 11/07/2023 Interpersonal Safety [...] encounter Miscellaneous Notes * Telephone Encounter - Hayley Guzman, ATTILA - 06/29/2024 1211 EDT T/C placed back to patient to discuss this. Patient requesting additional tubi med specialist to be picked up at our office. Notified her we would be happy to cut a couple more for her. Plan for her to shredder picker at front desk monitor. * Telephone Encounter - Liseth Painting - 06/29/2024 1157 EDT Patient is calling and left a voicemail about a knee wrap that she is requesting. She stated that it was talked about at her appointment. Thank you documented in this encounter Plan of Treatment Upcoming Encounters Date Type Department Care Team (Late st Contact Info) Description 08/10/2024 16:00 EDT Appointment [facility] MRI [address] [place], [place] [phone] 08/16/2024 14:00 EDT EMILIA [facility] OBGYN Ultrasound [address] [place] [phone] 08/29/2024 14:00 EDT Office Visit [facility] OBGYN [address] [place] [phone] Ness Vilchis MD [address] [place], [place] [address], [address] [place] [address] 08/31/2024 16:00 EDT Office Visit [facility] Orthopedics & Sport Medicine [address], [address] [place], [place] [phone] Reema Peoples, PA-C [address] [facility] [address] [place], [place] [phone] 09/01/2024 9:30 EDT Office Visit [facility] Rheumatology [address] [place] [phone] Lin Grider MD [address] [place] [address] [address] [place] [phone] 11/08/2024 14:00 EST Office Visit [facility] Adult Hematology & Oncology [address] [place] [address], [place] [address] Luz Maria Peter, GABRIEL 130 [facility], [facility] [address] [place] [phone] 11/22/2024 10:15 EST Office Visit [facility] Family Medicine - [address] [phone] Clint Miramontes MD [address] [place] [phone] documented as of this encounter Visit Diagnoses Not on filedocumented in this encounter Care Teams Cut Off Sawyer Relationship Specialty Start Date End Date Clint Miramontes MD [address] [place] [phone] PCP - General 08/23/19 documented as of this encounter
--- OUTSIDE RECORDS SUMMARY | 2024-08-07 13:35 | XMS_ITS | Encounter Summary ---
Author Organization [facility] Address [address] [place] [address] Care Team Providers Care International Flight Attendant Name Role Phone Clint Miramontes MD Primary Care Provider [phone] Reason for Visit * Reason Comments Annual Exam Encounter Details Date Type Department Care Team (Late st Contact Info) Description 11/19/2023 10:15 EST Office Visit [facility] Family Medicine [address] [address] Clint Miramontes MD [address] [place] [phone] Need for vaccination (Primary Dx) Social History Tobacco Use Types [...] place to sleep or slept in a [facility] (including now)? No 11/07/2023 Interpersonal Safety Answer [...] Sign Reading Time Taken Comments Blood Pressure 122/66 11/19/2023 1022 EST Pulse 64 11/19/2023 1022 EST Temperature - - Respiratory Rate 16 11/19/2023 1022 EST Oxygen Saturation 95% 11/19/2023 1022 EST Inhaled Oxygen Concentration - - Weight 46.2 kg (101 lb 14.4 oz) 11/19/2023 1022 EST Height 146.1 cm (4' 9.5) 11/19/2023 1022 EST Body Mass Index 21.67 11/19/2023 1022 EST documented in this encounter [...] as of this encounter Progress Notes * Denise Germain RN - 11/19/2023 1015 EST Immunizations due: Registry verified Covid - patient would like today(had covid in July) Tdap (pharmacy) - will have at pharmacy Shingrix (pharmacy) - declines 11/21/2021 10:29 11/07/2023 5:15 Risk Totals: MFQ, PHQ-9A, PHQ-2/PHQ-9, and TOMASA-7 PHQ-2 1 0 TOMASA-2 3 TOMASA-7 7 TOMASA-7 Interpretation Mild Anxiety Feels safe at home. * Clint Miramontes MD - 11/19/2023 1015 EST Medicare Annual Wellness Visit - Wellness Patient presents today for [facility] Medicare Essential Components: Patient self-assessment questionnaire completed, reviewed, and scanned: yes Full history done with PMH, PSH, SH, FH, ROS. The patient's problem list, past medical/surgical history, medications, allergies, family and social history were all updated and reviewed. Done: yes Diet Reviewed: yes Level of activity: active Cognitive WNL Hearing: WNL Vision: assessed: yes Functional Evaluation completed ADLs: WNL Fall risk: Low Home Safety: Safe Advance Directives - given Updated list of treating providers on Care Team: Patient Care Team: Clint Miramontes MD as PCP - General Written Health Plan in patient instructions: yes 11/21/2021 10:29 11/07/2023 5:15 Behavioral Health Screen Little interest or pleasure in doing things? 0 0 Feeling down, depressed, or hopeless? 1 0 PHQ-2 SUBTOTAL 1 0 Feeling nervous, anxious, or on edge 3 Not being able to stop or control worrying 0 TOMASA-2 Subtotal 3 Worrying too much about different things 1 Trouble relaxing 3 Being so restless that it is hard to sit still 0 Becoming easily annoyed or irritable 0 Feeling afraid as if something awful might happen 0 TOMASA-7 Total Score 7 TOMASA-7 Score Interpretation Mild Anxiety How many times in the past year have you had 4 or more drinks in a single day? 0 How many times in the past year have you used an illegal drug or used a prescription medication fornon-medical reasons? 0 Physical Exam Gen: Alert and oriented. No distress HEENT: EOMI, PERRLA, TMs normal. Mouth/Throat: Oropharynx is clear. Landmarks visible. Neck: Normal range of motion. No lesions. Cardiovascular: Normal rate, regular rhythm and normal heart sounds. No murmurs. Pulmonary/Chest: Effort normal and breath sounds normal. Abdomen: soft NT/ND. No hepatosplenomegaly Musculoskeletal: Normal range of motion. Neuro: no gross defects. Skin: Skin is warm. No rash. Lymph: no lymphadenopathy. Psychiatric: normal mood and affect. AWV - CMP/lipids documented in this encounter Plan of Treatment Upcoming Encounters Date Type Department Care Team (Late st Contact Info) Description 08/10/2024 16:00 EDT Appointment [facility] MRI [address] [place] [address] 08/16/2024 14:00 EDT EMILIA [facility] OBGYN Ultrasound [address] [place] [address] 08/29/2024 14:00 EDT Office Visit [facility] OBGYN [address] [place] [phone] Ness Vilchis MD 130 [facility], [address] [place] [address] 08/31/2024 16:00 EDT Office Visit [facility] Orthopedics & Sport Medicine [address], [address] [place] [address] Reema Peoples PA-C 1311 [facility] [address] [place], [place] [phone] 09/01/2024 9:30 EDT Office Visit [facility] Rheumatology [address] [place], [place] [address] Lin Grider MD 130 [facility] [address] [place] [address] 11/08/2024 14:00 EST Office Visit [facility] Adult Hematology & Oncology [facility] [place] [address] Luz Maria Peter NP 130 [facility] [address] [place] [address] 11/22/2024 10:15 EST Office Visit [facility] Family Medicine - [place] [address] [place] [address] Clint Miramontes MD [address] [place] [phone] documented as of this encounter Visit Diagnoses Diagnosis Need for vaccination- Primary Need for prophylactic vaccination and inoculation against unspecified single disease documented in this encounter Orders Immunization/Injection Count Last Ordered Date First Ordered Date COVID-19 MRNA-LNP VA CCINE (MODERNA COVID-19) PF 0.5 ML (12 YRS+) 1 11/19/2023 documented in this encounter Care Teams International Flight Attendant Relationship Specialty Start Date End Date Clint Miramontes MD [address] [place] [phone] PCP - General 08/23/19 documented as of this encounter
--- OUTSIDE RECORDS SUMMARY | 2024-08-07 13:35 | XMS_ITS | Encounter Summary ---
Author Organization [facility] Address [address] [place] [address] Care Team Providers Care Leather Coater Name Role Phone Clint Miramontes MD Primary Care Provider [phone] Encounter Details Date Type Department Care Team (Late st Contact Info) Description 10/05/2023 Documentation Visit [facility] Therapy [address] [place], [place] [phone] Ekta Chatterjee, PT [address] [place], [place] [phone] Social History Tobacco Use Types Packs/Day Years [...] as of this encounter Progress Notes * Ekta Chatterjee, PT - 10/05/2023 1351 EST [facility] Outpatient Rehabilitation Services [phone] Physical Therapy Discharge Not Seen Recently Therapy Diagnosis: acute on chronic neck pain with mobility deficit Referring Clinician: Clint Miramontes MD Reporting Period: 05/04/23-06/15/23 Physical Therapy Program to Date: In summary, the program has included: therapeutic exercise, manual therapy, modalities Goal Review: not available to formally assess Short-Term Goals Timeframe: 4 weeks (05/19/23) Patient will be adherent to an HEP to allow for progression Patient will be able to walk community distances without pain or limitation ?? Long-Term Goals Timeframe: 8 weeks (06/16/23) Patient will demonstrate increased LE strength by ability to squat to chair height surface without pain or deviation Patient will be independent with an HEP for independent management of condition Discharge Reason: failed to schedule more appointments Discharge patient at this time; future therapy will require a new physician's referral. documented in this encounter Plan of Treatment Upcoming Encounters Date Type Department Care Team (Late st Contact Info) Description 08/10/2024 16:00 EDT Appointment [facility] MRI [address] [place] [address] 08/16/2024 14:00 EDT EMILIA [facility] OBGYN Ultrasound [address] [place] [address] 08/29/2024 14:00 EDT Office Visit [facility] OBGYN [address] [place] [address] Ness Vilchis MD 130 [facility], [address] [place] [phone] 08/31/2024 16:00 EDT Office Visit [facility] Orthopedics & Sport Medicine [address] [place], [place] [phone] Reema Peoples PA-C 13[address] [facility] [address] [place] [address] 09/01/2024 9:30 EDT Office Visit [facility] Rheumatology 130 [facility] [place] [phone] Lin Grider MD 130 [facility] [address] [place] [address] 11/08/2024 14:00 EST Office Visit [facility] Adult Hematology & Oncology [address] [place] [address], [place] [phone] Luz Maria Peter NP 130 [facility], [facility] [address] [place] [address] 11/22/2024 10:15 EST Office Visit [facility] Family Medicine - [place] [address] [place] [phone] Clint Miramontes MD [address] [place] [phone] documented as of this encounter Visit Diagnoses Not on filedocumented in this encounter Care Teams Leather Coater Relationship Specialty Start Date End Date Clint Miramontes MD [address] [place] [phone] PCP - General 08/23/19 documented as of this encounter
--- OUTSIDE RECORDS SUMMARY | 2024-08-07 13:35 | XMS_ITS | Encounter Summary ---
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 ([facility]-CMS) (Primary Dx); Primary osteoarthritis of left knee; Chronic obstructive pulmonary disease, unspecified COPD type (HCC-CMS) Social History Tobacco Use Types Packs/Day [...] Sign Reading Time Taken Comments Blood Pressure 148/70 05/19/2024 0941 EDT Pulse 59 05/19/2024 0941 EDT Temperature 36.2 ??C (97.2 ??F) 05/19/2024 0941 EDT Respiratory Rate 18 05/19/2024 0941 EDT Oxygen Saturation 92% 05/19/2024 0941 EDT Inhaled Oxygen Concentration - - Weight 44.1 kg (97 lb 3.2 oz) 05/19/2024 0941 ED T Height - - Body Mass Index 20.67 11/19/2023 1022 EST documented in this encounter [...] Dispensed Refills Start Date End Da te albuterol sulfate 90 mcg/actuation aero powdr breath act w/sensor Inhale 1 Puff as directed 6 times daily. 1 Each 3 05/19/2024 fluticasone propionate (FLOVENT HFA) 110 mcg/actuation inhaler Inhale 2 Puffs as directed every 12 hours. 12 g 3 05/19/2024 05/19/2024 documented in this encounter Progress Notes * Clint Miramontes MD - 05/19/2024 0945 EDT Subjective: Patient ID: Mel Ramirez is an 74 y.o. female. Follow up. HPI Mel has a history of Lymphoma. She has had ongoing weight loss over the past year or so. Labs initially high for lipase. Abdominal imaging was reassuring. She has had a fairly recent visit with Heme Onc. CBC/CMP/TSH/SPEP/Lipase recently within normal limits. Diet is poor. She does not eat much for breakfast/lunch. L knee pain - following up with Ortho. 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 6 Tablet 3 FLOVENT HFA 110 mcg/actuation inhaler INHALE 2 PUFFS EVERY 12 HOURS DIRECTED 12 g 3 inhalational spacing device (E-Z SPACER) Inhale [...] facility-administered medications on file prior to visit. Allergies Allergen Reactions Other - See Comments Wasp stings- swollen local reactions, no throat swelling Crestor [Rosuvastatin] Rash Pravastatin Rash Social Social History Tobacco Use Smoking status: Former Current packs/day: 0.00 Average packs/day: 1 pack/day for 18.7 years (18.7 ttl pk-yrs) Types: Cigarettes Start date: 1963 Quit date: 07/03/1982 Years since quittin.9 Smokeless tobacco: Never Tobacco comments: 1981 quit Vaping Use Vaping status: Former Substances: THC Devices: Pre-filled or refillable cartridge Substance Use Topics Alcohol use: No Drug use: Yes Frequency: 5.0 times per week Types: Marijuana Comment: smokes and does edibles ROS - See HPI Objective: BP (!) 148/70 Pulse 59 Temp 36.2 ??C (97.2 ??F) (Oral) Resp 18 Wt (!) 44.1 kg (97 lb 3.2 oz) SpO2 92% BMI 20.67 kg/m?? Physical Exam Gen: Alert and oriented. No distress Cardiovascular: Normal rate, regular rhythm and normal heart sounds. No murmurs. Pulmonary/Chest: Effort normal and breath sounds normal. Psychiatric: normal mood and affect. Assessment: CLL - stable. Follow up heme onc 07/25 L knee pain - follow up Ortho. Tdap 11/25. I spent a total of 31 minutes on the date of this encounter meeting with the patient and reviewing documentation/coordinating care as described in the above note. Plan: There are no diagnoses linked to this encounter. No follow-ups on file. documented in this encounter Plan of Treatment Upcoming Encounters Date Type Department Care Team (Late st Contact Info) Description 08/10/2024 16:00 EDT Appointment [facility] MRI [address] [place], [place] [address] 08/16/2024 14:00 EDT EMILIA [facility] OBGYN Ultrasound [address] [place] [id number] 08/29/2024 14:00 EDT Office Visit [facility] OBGYN [address] [place] [phone] Ness Vilchis MD [address] [place] [address], [address] [place] [address] 08/31/2024 16:00 EDT Office Visit [facility] Orthopedics & Sport Medicine [address], [address] [place], [place] [phone] Reema Peoples PA-C [address] [facility] [address] [place], [place] [address] 09/01/2024 9:30 EDT Office Visit [facility] Rheumatology [address] [place] [address] [phone] Lin Grider MD [address] [place] [address] [address] [place] [address] 11/08/2024 14:00 EST Office Visit [facility] Adult Hematology & Oncology [address] [place] [address], [place] [phone] Luz Maria Peter, GABRIEL [address] [place] [address], [facility] [address] [place] [address] 11/22/2024 10:15 EST Office Visit [facility] Family Medicine - [place] [address] [place] [address] Clint Miramontes MD [address] [place] [address] [phone] documented as of this encounter Visit Diagnoses Diagnosis 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 Reorder 04/21/2022 05/19/2024 FLOVENT HFA 110 mcg/actuation inhaler INHALE 2 PUFFS EVERY 12 HOURS DIRECTED Reorder 05/07/2023 05/19/2024 documented as of this encounter Care Teams Linseed Oil Boiler Relationship Specialty Start Date End Date Clint Miramontes MD [address] [place] [address] [phone] PCP - General 08/23/19 documented as of this encounter
--- OUTSIDE RECORDS SUMMARY | 2024-08-07 13:35 | XMS_ITS | Encounter Summary ---
Author Organization [facility] Address [address] [place] [address] Care Team Providers Care Pca Name Role Phone Clint Miramontes MD Primary Care Provider [phone] Reason for Visit * Reason Onset Date Comments Medications Refill 08/14/2023 Encounter Details Date Type Department Care Team (Late st Contact Info) Description 08/14/2023 Refill [facility] - [address] [address] Luz Maria Hdz RN Medications Refill Social History Tobacco Use Types [...] mg 30 Tablet 3 08/14/2023 12/16/2023 documented in this encounter Miscellaneous Notes * Telephone Encounter - Luz Maria Hdz, RN - 08/14/2023 1226 EDT Lorazepam refill requested seven : yesterday Nov 11/09/2023 rx pending in absence of pcp. documented in this encounter Plan of Treatment Upcoming Encounters Date Type Department Care Team (Late st Contact Info) Description 08/10/2024 16:00 EDT Appointment [facility] MRI [address] [place], [place] [address] 08/16/2024 14:00 EDT EMILIA [facility] OBGYN Ultrasound [address] [place] [address] 08/29/2024 14:00 EDT Office Visit [facility] OBGYN [address] [place], [place] [address] Ness Vilchis MD [address] [facility], [address] [place] [address] 08/31/2024 16:00 EDT Office Visit [facility] Orthopedics & Sport Medicine [address], [address] [place] [address] Reema Peoples PA-C [address] [facility] [address] [place], [place] [phone] 09/01/2024 9:30 EDT Office Visit [facility] Rheumatology [address] [place], [place] [phone] Lin Grider MD [address] [facility] [address] [place] [address] 11/08/2024 14:00 EST Office Visit [facility] Adult Hematology & Oncology [facility] [place] [address] Luz Maria Peter NP [address] [facility], [facility] [address] [place] [address] 11/22/2024 10:15 EST Office Visit [facility] Family Medicine - [place] [address] [place] [address] Clint Miramontes MD [address] [place] [address] [phone] documented as of this encounter Visit Diagnoses Not on filedocumented in this encounter Discontinued Medications Medication Sig Discontinue Reason Start Date End Da te LORazepam (ATIVAN) 1 mg tablet TAKE ONE TABLET BY MOUTH AT BEDTIME NEEDED FOR ANXIETY Reorder 04/20/2023 08/14/2023 documented as of this encounter Care Teams Pca Relationship Specialty Start Date End Date Clint Miramontes MD [address] [place] [address] [phone] PCP - General 08/23/19 documented as of this encounter
--- OUTSIDE RECORDS SUMMARY | 2024-08-07 13:35 | XMS_ITS | Encounter Summary ---
Author Organization [facility] Address [address] [place] [address] Care Team Providers Care Pulverizer Mill Operator Name Role Phone Clint Miramontes MD Primary Care Provider [phone] Encounter Details Date Type Department Care Team (Late st Contact Info) Description 08/14/2023 Orders Only [facility] [address] [place] [phone] Noble Costa Social History Tobacco Use Types Packs/Day Years [...] Contact Info) Description 08/10/2024 16:00 EDT Appointment [facility] MRI [address] [place], [place] [id number] 08/16/2024 14:00 EDT EMILIA [facility] OBGYN Ultrasound [address] [place], [place] [address] 08/29/2024 14:00 EDT Office Visit [facility] OBGYN [address] [place] [phone] Ness Vilchis MD [address] [place] [address], [address] [place] [address] 08/31/2024 16:00 EDT Office Visit [facility] Orthopedics & Sport Medicine [address], [address] [place], [place] [phone] Reema Peoples, PA-C [address] [facility] [address] [place], [place] [phone] 09/01/2024 9:30 EDT Office Visit [facility] Rheumatology [address] [place] [phone] Lin Grider MD [address] [place] [address] [address] [place] [address] 11/08/2024 14:00 EST Office Visit [facility] Adult Hematology & Oncology [address] [place] [address] Luz Maria Peter, GABRIEL [address] [place] [address] [address] [place] [address] 11/22/2024 10:15 EST Office Visit [facility] Family Medicine - [place] [address] [place] [address] Clint Miramontes MD [address] [place] [phone] documented as of this encounter Visit Diagnoses Not on filedocumented in this encounter Care Teams Pulverizer Mill Operator Relationship Specialty Start Date End Date Clint Miramontes MD [address] [place] [phone] PCP - General 08/23/19 documented as of this encounter
--- OUTSIDE RECORDS SUMMARY | 2024-08-07 13:35 | XMS_ITS | Encounter Summary ---
Author Organization [facility] Address [address] [place] [address] Care Team Providers Care Progressive Care Nurse Name Role Phone Clint Miramontes MD Primary Care Provider Encounter Details Date Type Department Care Team (Late st Contact Info) Description 07/11/2024 Orders Only [facility] - [facility] Rheumatology [address] [place] [address] Lin Grider MD 130 [facility] [address] [place] [address] Social History Tobacco Use Types Packs/Day Years [...] Info) Description 08/10/2024 16:[address] [facility] MRI [address] [place] [address] 08/16/2024 14:[address] [facility] OBGYN Ultrasound [address] [place] [address] 08/29/2024 14:[address] [facility] OBGYN [address] [place] [phone] Ness Vilchis MD [address] [facility], [address] [place] [phone] 08/31/2024 16:[address] [facility] Orthopedics & Sport Medicine [address], [address] [place], [place] [phone] Reema Peoples PA-C [address] [facility] [address] [place], [place] [address] 09/01/2024 9:[address] [facility] Rheumatology [address] [facility], [place] [phone] Lin Grider MD 130 [facility] [address] [place] [address] 11/08/2024 14:[address] [facility] Adult Hematology & Oncology [address] [place] [address], [place] [phone] Luz Maria Peter NP [address] [facility] [address] [place] [phone] 11/22/2024 10:[address] [facility] Family Medicine - [place] [address] [facility], [place] [phone] Clint Miramontes MD [address] [place] [phone] documented as of this encounter Visit Diagnoses Not on filedocumented in this encounter Care Teams Progressive Care Nurse Relationship Specialty Start Date End Date Clint Miramontes MD [address] [place] [phone] PCP - General 08/23/19 documented as of this encounter
--- OUTSIDE RECORDS SUMMARY | 2024-08-07 13:35 | XMS_ITS | Encounter Summary ---
Author Organization [facility] Address [address] [place] [address] Care Team Providers Care Tree Doctor Name Role Phone Clint Miramontes MD Primary Care Provider [phone] Reason for Visit * Reason Comments Follow-up Surveillance for his tory of marginal zone lymphoma Encounter Details Date Type Department Care Team (Late st Contact Info) Description 11/10/2023 14:00 EST Office Visit [facility] Adult Hematology & Oncology [facility] [place] [address] Luz Maria Peter NP [address] [facility] [address] [place] [address] History of lymphoma (Primary Dx); 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); Weight loss Social History Tobacco Use Types Packs/Day Years [...] Sign Reading Time Taken Comments Blood Pressure 118/68 11/10/2023 1358 EST Pulse 91 11/10/2023 1358 EST Temperature - - Respiratory Rate - - Oxygen Saturation 97% 11/10/2023 1358 EST Inhaled Oxygen Concentration - - Weight 46.7 kg (102 lb 14.4 oz) 11/10/2023 1358 EST Height - - Body Mass Index 20.78 10/09/2023 1408 EST documented in this encounter [...] encounter Progress Notes * Luz Maria Peter, COUTURE DRESSMAKER - 11/10/2023 1400 EST CC: Chief Complaint Patient presents with Follow-up Surveillance for history of marginal zone lymphoma Hematology/Oncology Problem List: Diagnosis 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 ([facility]) Rafa 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 Clinical stage IIIa disease with numerous small lymph nodes above and below the diaphragm. No treatment at this time. Subjective: Ms. Ramirez is here for follow up in the setting of marginal zone lymphoma. She has managed to gain some weight. Often does not eat earlier in the day but makes sure she has a substantial meal at supper. 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 Denies night sweats or adenopathy. Review of Systems: All 10 systems have [...] medications for this visit. Objective: VS: BP 118/68 Pulse 91 Wt 46.7 kg (102 lb 14.4 oz) SpO2 97% BMI 20.78 kg/m?? Social History Socioeconomic History Marital status: Single Tobacco Use Smoking status: Former Current packs/day: 0.00 Average packs/day: 1 pack/day for 18.7 years (18.7 ttl pk-yrs) Types: Cigarettes Start date: 1963 Quit date: 07/03/1982 Years since quittin.3 Smokeless tobacco: Never Tobacco comments: 1981 quit Vaping Use Vaping Use: Former Substances: THC Devices: Pre-filled or refillable [...] Lungs: LCTA bilaterally. Good inspiratory effort. Heart: RRR Abd: Soft, non tender. No HSM Extremities: Lymph nodes: No palpable cervical or supraclavicular, adenopathy. Neuro: Alert and oriented x 3. Normal affect. Normal gait. Performance Status:0 Data Review: Labs: Results for orders placed or performed in visit on 11/10/23 COMPLETE BLOOD COUNT AND DIFFERENTIAL Result Value Ref Range WBC 5.49 4.00 - 12.40 K/cmm RBC 4.23 3.86 - 5.04 M/cmm Hemoglobin 12.6 11.6 - 15.2 g/dL HCT 38.1 >=21.0 % MCV 90 81 - 98 fL MCH 29.8 26.7 - 33.3 pg MCHC 33.1 32.1 - 35.9 g/dL RDW-CV 12.8 <14.7 % RDW-SD 41.3 <50.4 fl PLT 211 141 - 377 K/cmm MPV 9.7 9.5 - 12.7 fL % Neutrophils 61.1 % % Lymphocytes 26.4 % % Monocytes 9.5 % % Eosinophils 2.6 % % Basophils 0.4 % % Immature Grans Absolute Neutrophils 3.36 2.20 - 8.85 K/cmm Absolute Lymphocytes 1.45 1.09 - 3.30 K/cmm Absolute Monocytes 0.52 0.10 - 0.80 K/cmm Absolute Eosinophils 0.14 0.03 - 0.61 K/cmm ABS Basophils 0.02 0.01 - 0.11 K/cmm Absolute Immature Grans Type of Differential: Auto COMPREHENSIVE METABOLIC PANEL (CMP) Result Value Ref Range Sodium 139 136 - 145 mmol/L Potassium 4.8 3.5 - 5.0 mmol/L Chloride 105 96 - 110 mmol/L CO2 Total 26 22 - 32 mmol/L Glucose 82 70 - 99 mg/dl BUN 18 10 - 26 mg/dL Creatinine 0.63 0.52 - 1.04 mg/dL eGFR 93 >60 mL/min/1.73m2 Total Protein 7.2 6.3 - 8.2 g/dL Albumin 4.5 3.4 - 4.9 g/dL Alkaline Phosphatase 61 38 - 126 U/L AST 27 15 - 46 U/L ALT 18 <35 U/L Bilirubin, Total 0.9 <1.4 mg/dL Calcium 9.4 8.5 - 10.5 mg/dL Albumin/Globulin Ratio 1.7 1.0 - 2.5 g/dL Anion Gap 8 5 - 14 mmol/L LDH Result Value Ref Range LDH 211 120 - 246 U/L Imaging: PET CT EYE TO THIGH 09/16/2023 7:30 AM Signs and Symptoms: weight loss. Lymphoma Hx; Weight loss, unintended; weight loss. Lymphoma Hx;C85.91: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 (HCC- CMS);R63.4:Weight loss;R11.0:Nausea Comparison: CT abdomen pelvis June 08, 2023, CT chest May 27, 2022 Technique: Approximately 90 minutes following the IV injection of 7.5 mCi of F18- fluorodeoxyglucose, PET/CT imaging was obtained from the skull [...] left adnexal cystic lesion, not significantly changed comparedto prior. MUSCULOSKELETAL: Pertinent findings: No abnormal radiotracer uptake. Incidental findings: No concerning osseous lesion. Multilevel degenerative changes in the spine. IMPRESSION 1. No evidence of abnormal radiotracer uptake; Deauville 1. 2. Additional incidental findings: Nonobstructing left nephrolithiasis, mild chronic right hydronephrosis, uterine fibroids Assessment/Plan: Ms. Ramirez is a 72 yo female with marginal zone lymphoma on surveillance. CT scans from 05/27/22 reviewed with showed no evidence of pathologically enlarged nodes. Noted is a 2.8 cm adenexal cystic lesion unchanged from 07/2022. Weight loss: Weight is up. Continue to maintain protein/caloric intake. Has had multiple studies recently including CA 125, endoscopy, labs which are normal. PET CT from 09/26/23 showed no evidence of abnormal radiotracer uptake. Continues to deny adenopathy of night sweats. LDH remains normal. Will return to clinic in 3 months. Cc: Clint Miramontes MD 30 minutes in face to face contact with 25 minutes counseling side effect, treatment management andcoordination of care. Luz Maria Peter ANP/DIESEL POWERPLANT SUPERVISOR [facility] Adult Hematology & Oncology * Ailyn Jenkins RN - 11/10/2023 1400 EST Suspicion of Abuse: no - If yes, please document evidence: - Assessed on: 11/10/23 14:09 - Assessed by: AILYN JENKINS RN Procedures: - Venipuncture Performed by: AILYN JENKINS RN Site Collected: Right Antecubital Space Volume Withdrawn: LAV EDTA 3.0 mL and Gold SST 3.5 mL Patient Response:Patient tolerated venipuncture well and 23G Butterfly used Number of attempts: Collected on: 11/10/23 14:09 Supervising Provider: Jessica Peter NP documented in this encounter Plan of Treatment Upcoming Encounters Date Type Department Care Team (Late st Contact Info) Description 08/10/2024 16:00 EDT Appointment [facility] MRI [address] [place], [place] [address] 08/16/2024 14:00 EDT EMILIA [facility] OBGYN Ultrasound [address] [place] [address] 08/29/2024 14:00 EDT Office Visit [facility] OBGYN [address] [place] [address] Ness Vilchis MD [address] [place] [address], [address] [place] [address] 08/31/2024 16:00 EDT Office Visit [facility] Orthopedics & Sport Medicine [address] [place], [place] [id number] Reema Peoples, PA-C [address] [facility] [address] [place], [place] [id number] 09/01/2024 9:30 EDT Office Visit [facility] Rheumatology [address] [place] [id number] Lin Grider MD [address] [place] [address] [address] [place] [address] 11/08/2024 14:00 EST Office Visit [facility] Adult Hematology & Oncology [address] [place] [address] Luz Maria Peter, GABRIEL [address] [place] [address] [address] [place] [address] 11/22/2024 10:15 EST Office Visit [facility] Family Medicine - [place] [address] [place] [address] Clint Miramontes MD [address] [place] [phone] documented as of this encounter Procedures Procedure Name Priority Date/Time Associated Diagnosis Comments COMPLETE BLOOD COUNT AND DIFFERENTIAL Routine 11/10/2023 14:07 EST History of lymphoma LDH Routine 11/10/2023 14:07 EST History of lymphoma COMPREHENSIVE METABOLIC PANEL (CMP) Routine 11/10/2023 14:07 EST History of lymphoma documented in this encounter Results * LDH (11/10/2023 14:07 EST) Pathologist [facility] LDH 211 120 - 246 U/L 11/10/2023 16:36 [facility] Blood VENOUS BLOOD / Unknown Venipuncture / Unknown 11/10/2023 14:07 EST 11/10/2023 14:07 EST Luz Maria Peter NP CHEMISTRY & BLOOD GAS ORDERABLES [facility] [address] [place] [address] * COMPREHENSIVE METABOLIC PANEL (CMP) (11/10/2023 14:07 EST) [facility] Sodium 139 136 - 145 mmol/L 11/10/2023 16:36 [facility] Potassium 4.8 3.5 - 5.0 mmol/L 11/10/2023 16:36 [facility] Chloride 105 96 - 110 mmol/L 11/10/2023 16:36 [facility] CO2 Total 26 22 - 32 mmol/L 11/10/2023 16:36 [facility] Glucose 82 70 - 99 mg/dl 11/10/2023 16:36 [facility] BUN 18 10 - 26 mg/dL 11/10/2023 16:36 [facility] Creatinine 0.63 0.52 - 1.04 mg/dL 11/10/2023 16:36 [facility] eGFR 93 >60 mL/min/1.7 3m2 11/10/2023 16:36 [facility] Total Protein 7.2 6.3 - 8.2 g/dL 11/10/2023 16:36 [facility] Albumin 4.5 3.4 - 4.9 g/dL 11/10/2023 16:36 [facility] Alkaline Phosphatase 61 38 - 126 U/L 11/10/2023 16:36 [facility] AST 27 15 - 46 U/L 11/10/2023 16:36 [facility] ALT 18 <35 U/L 11/10/2023 16:36 [facility] Bilirubin, Total 0.9 <1.4 mg/dL 11/10/19 16:36 [facility] Calcium 9.4 8.5 - 10.5 mg/dL 11/10/2023 16:36 [facility] Albumin/Globulin Ratio 1.7 1.0 - 2.5 g/dL 11/10/2023 16:36 [facility] Anion Gap 8 5 - 14 mmol/L 11/10/2023 16:36 [facility] Blood VENOUS BLOOD / Unknown Venipuncture / Unknown 11/10/2023 14:07 EST 11/10/2023 14:07 EST Luz Maria Peter NP CHEMISTRY & BLOOD GAS ORDERABLES Performing Organization Address City/State/[facility] Co de Phone Number [facility] [address] [place] [address] * COMPLETE BLOOD COUNT AND DIFFERENTIAL (11/10/2023 14:07 EST) WBC 5.49 4.00 - 12.40 K/cmm 11/10/2023 14:10 EST [facility] HEMATOLOGY & ONCOLOGY [facility] RBC 4.23 3.86 - 5.04 M/cmm 11/10/2023 14:10 EST [facility] HEMATOLOGY & ONCOLOGY [facility] Hemoglobin 12.6 11.6 - 15.2 g/dL 11/10/2023 14:10 EST [facility] HEMATOLOGY & ONCOLOGY [facility] HCT 38.1 >=21.0 % 11/10/2023 14:10 [facility] HEMATOLOGY & ONCOLOGY [facility] MCV 90 81 - 98 fL 11/10/2023 14:10 [facility] ONCOLOGY [facility] MCH 29.8 26.7 - 33.3 pg 11/10/2023 14:10 [facility] ONCOLOGY [facility] MCHC 33.1 32.1 - 35.9 g/dL 11/10/2023 14:10 [facility] ONCOLOGY [facility] RDW-CV 12.8 <14.7 % 11/10/2023 14:10 [facility] ONCOLOGY [facility] RDW-SD 41.3 <50.4 fl 11/10/2023 14:10 [facility] ONCOLOGY [facility] PLT 211 141 - 377 K/cmm 11/10/2023 14:10 [facility] ONCOLOGY [facility] MPV 9.7 9.5 - 12.7 fL 11/10/2023 14:10 [facility] HEMATOLOGY & ONCOLOGY [facility] % Neutrophils 61.1 % 11/10/2023 14:10 [facility] ONCOLOGY [facility] % Lymphocytes 26.4 % 11/10/2023 14:10 [facility] HEMATOLOGY ONCOLOGY [facility] % Monocytes 9.5 % 11/10/2023 14:10 [facility] ONCOLOGY [facility] % Eosinophils 2.6 % 11/10/2023 14:10 [facility] ONCOLOGY [facility] % Basophils 0.4 % 11/10/2023 14:10 [facility] ONCOLOGY [facility] % Immature Grans 11/10/19 14:10 [facility] & ONCOLOGY [facility] Absolute Neutrophils 3.36 2.20 - 8.85 K/cmm 11/10/2023 14:10 [facility] & ONCOLOGY [facility] Absolute Lymphocytes 1.45 1.09 - 3.30 K/cmm 11/10/2023 14:10 [facility] ONCOLOGY [facility] Absolute Monocytes 0.52 0.10 - 0.80 K/cmm 11/10/2023 14:10 [facility] ONCOLOGY [facility] Absolute Eosinophils 0.14 0.03 - 0.61 K/cmm 11/10/2023 14:10 [facility] ONCOLOGY [facility] ABS Basophils 0.02 0.01 - 0.11 K/cmm 11/10/2023 14:10 EST [facility] HEMATOLOGY & ONCOLOGY [facility] Absolute Immature Grans 11/10/2023 14:10 EST [facility] HEMATOLOGY & ONCOLOGY [facility] Type of Differential: Auto 11/10/2023 14:10 EST [facility] HEMATOLOGY & ONCOLOGY [facility] Blood VENOUS BLOOD / Unknown Venipuncture / Unknown 11/10/2023 14:07 EST 11/10/2023 14:07 EST Luz Maria Peter COUTURE DRESSMAKER PACKAGES & DNA PRO BE ORDERABLES [facility] HEMATOLOGY & ONCOLOGY [facility] Medical Office [address] documented in this encounter Visit Diagnoses Diagnosis History of lymphoma- Primary Personal history of other lymphatic and hematopoietic neoplasm 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) Weight loss Loss of weight documented in this encounter Care Teams Tree Doctor Relationship Specialty Start Date End Date Clint Miramontes MD [address] [place] [phone] PCP - General 08/23/19 documented as of this encounter
--- OUTSIDE RECORDS SUMMARY | 2024-08-07 13:35 | XMS_ITS | Encounter Summary ---
Author Organization [facility] Address [address] [place] [address] Care Team Providers Care Supplier Specialist Name Role Phone Clint Miramontes MD Primary Care Provider [phone] Reason for Visit * Reason Comments Follow-up Surveillance for h/o lymphoma Encounter Details Date Type Department Care Team (Late st Contact Info) Description 07/05/2024 14:00 EDT Office Visit [facility] Adult Hematology & Oncology [address] [place] [address] Luz Maria Peter, GABRIEL [address] [place] [address] [address] [place] [address] History of lymphoma (Primary Dx) Social History Tobacco Use Types [...] place to sleep or slept in a longterm (including now)? 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 Clinical stage IIIa disease with numerous small lymph nodes above and below the diaphragm. No treatment at this time. Subjective: Ms. Ramirez is here for follow up in the setting of marginal zone lymphoma. 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 Working with ortho on her left knee which is painful when overworked. She denies night sweats, adenopathy or unintentional weight loss. Review of Systems: All 10 systems have been reviewed and are negative except for the mentioned above. Medications: Current Outpatient Medications Medication albuterol sulfate 90 mcg/actuation aero powdr breath act w/sensor aspirin 81 mg EC tablet beclomethasone HFA (QVAR REDIHALER) 80 mcg/actuation inhaler cholecalciferol, Vitamin D3, 25 mcg (1,000 unit) tablet diazePAM (VALIUM) 2 mg tablet inhalational spacing device (E-Z SPACER) LORazepam (ATIVAN) 1 mg tablet lovastatin (MEVACOR) 40 mg tablet No current facility-administered medications for this visit. Objective: VS: BP 138/78 Pulse 65 Wt (!) 42.9 kg (94 lb 9.6 oz) SpO2 99% BMI 20.12 kg/m?? Social History Socioeconomic History Marital status: Single Tobacco Use Smoking status: Former Current packs/day: 0.00 Average packs/day: 1 pack/day for 18.7 years (18.7 ttl pk-yrs) Types: Cigarettes Start date: 1963 Quit date: 07/03/1982 Years since quittin.0 Smokeless tobacco: Never Tobacco comments: 1981 quit Vaping Use Vaping status: Former Substances: THC Devices: Pre-filled or refillable cartridge Substance and Sexual Activity Alcohol use: No Drug use: Yes Frequency: 5.0 times per week Types: Marijuana Comment: smokes and does edibles Social Determinants of Health Financial Strain: Medium Risk (11/07/2023) Overall Financial Resource [...] orders placed or performed in visit on 07/05/24 LDH Result Value Ref Range LDH 219 120 - 246 U/L COMPREHENSIVE METABOLIC PANEL (CMP) Result Value Ref Range Sodium 138 136 - 145 mmol/L Potassium 4.3 3.5 - 5.0 mmol/L Chloride 101 96 - 110 mmol/L CO2 Total 30 22 - 32 mmol/L Glucose 76 70 - 99 mg/dl BUN 15 10 - 26 mg/dL Creatinine 0.66 0.52 - 1.04 mg/dL eGFR 91 >60 mL/min/1.73m2 Total Protein 7.2 6.3 - 8.2 g/dL Albumin 4.7 3.4 - 4.9 g/dL Alkaline Phosphatase 56 38 - 126 U/L AST 24 15 - 46 U/L ALT 17 <35 U/L Bilirubin, Total 0.8 <1.4 mg/dL Calcium 9.5 8.5 - 10.5 mg/dL Albumin/Globulin Ratio 1.9 1.0 - 2.5 Anion Gap 7 5 - 14 mmol/L COMPLETE BLOOD COUNT AND DIFFERENTIAL Result Value Ref Range WBC 6.16 4.00 - 12.40 K/cmm RBC 4.63 3.86 - 5.04 M/cmm Hemoglobin 13.5 11.6 - 15.2 g/dL HCT 41.7 34.9 - 44.4 % MCV 90 81 - 98 fL MCH 29.2 26.7 - 33.3 pg MCHC 32.4 32.1 - 35.9 g/dL RDW-CV 13.0 <14.7 % RDW-SD 43.2 <50.4 fl PLT 209 141 - 377 K/cmm MPV 8.8 (L) 9.5 - 12.7 fL % Neutrophils 60.7 % % Lymphocytes 29.4 % % Monocytes 7.1 % % Eosinophils 1.8 % % Basophils 0.8 % % Immature Grans 0.2 <0.9 % Absolute Neutrophils 3.74 2.20 - 8.85 K/cmm Absolute Lymphocytes 1.81 1.09 - 3.30 K/cmm Absolute Monocytes 0.44 0.10 - 0.80 K/cmm Absolute Eosinophils 0.11 0.03 - 0.61 K/cmm ABS Basophils 0.05 0.01 - 0.11 K/cmm Absolute Immature Grans 0.01 0.00 - 0.06 K/cmm Type of Differential: Auto Assessment/Plan: Ms. Ramirez is a 72 yo [...] unremarkable. Will return to clinic in 4 months per patient preference. Cc: Clint Miramontes MD 30 minutes in face to face contact with 25 minutes counseling side effect, treatment management andcoordination of care. Luz Maria Peter ANP/[employer] [facility]ematology & Oncology * Sydni Martínez RN - 07/05/2024 1400 EDT Suspicion of Abuse: no - If yes, please document evidence: - Assessed on: 07/05/24 13:57 - Assessed by: SYDNI MARTÍNEZ RN Procedures: - Venipuncture Performed by: SYDNI MARTÍNEZ RN Site Collected: Right Antecubital Space Volume Withdrawn: LAV EDTA 3.0 mL and Addis SST 8.5 mL Patient Response:Patient tolerated venipuncture well and 23G Butterfly used Number of attempts:1 Collected on: 07/05/24 13:57 Supervising Provider: Jessica Peter NP documented in this encounter Plan of Treatment Upcoming Encounters Date Type Department Care Team (Late st Contact Info) Description 08/10/2024 16:00 EDT Appointment [facility] MRI [address] [place], [place] [id number] 08/16/2024 14:00 EDT EMILIA [facility] OBGYN Ultrasound [address] [place] [phone] 08/29/2024 14:00 EDT Office Visit [facility] OBGYN [address] [place] [address] [phone] Ness Vilchis MD [address] [place] [address], [address] [place] [phone] 08/31/2024 16:00 EDT Office Visit [facility] Orthopedics & Sport Medicine [address], [address] [place], [place] [phone] Reema Peoples PA-C [address] [facility] [address] [place], [place] [phone] 09/01/2024 9:30 EDT Office Visit [facility] Rheumatology [address] [place], [place] [phone] Lin Grider MD [address] [place] [address] [address] [place] [address] 11/08/2024 14:00 EST Office Visit [facility] Adult Hematology & Oncology [address] [place] [address], [place] [address] Luz Maria Peter, GABRIEL [address] [facility] [address] [place] [address] 11/22/2024 10:15 EST Office Visit [facility] Family Medicine - [place] [address] [place] [address] Clint Miramontes MD [address] [place] [phone] documented as of this encounter Procedures Procedure Name Priority Date/Time Associated Diagnosis Comments COMPLETE BLOOD COUNT AND DIFFERENTIAL Routine 07/05/2024 13:52 EDT History of lymphoma LDH Routine 07/05/2024 13:52 EDT History of lymphoma COMPREHENSIVE METABOLIC PANEL (CMP) Routine 07/05/2024 13:52 EDT History of lymphoma documented in this encounter Results * (ABNORMAL) COMPLETE BLOOD COUNT AND DIFFERENTIAL (07/05/2024 13:52 EDT) WBC 6.16 4.00 - 12.40 K/cmm 07/05/2024 13:59 EDT [facility]Y [facility] RBC 4.63 3.86 - 5.04 M/cmm 07/05/2024 13:59 EDT [facility] Hemoglobin 13.5 11.6 - 15.2 g/dL 07/05/2024 13:59 EDT [facility] HCT 41.7 34.9 - 44.4 % 07/05/2024 13:59 EDT [facility] MCV 90 81 - 98 fL 07/05/2024 13:59 EDT [facility] MCH 29.2 26.7 - 33.3 pg 07/05/2024 13:59 EDT [facility] MCHC 32.4 32.1 - 35.9 g/dL 07/05/2024 13:59 EDT [facility] RDW-CV 13.0 <14.7 % 07/05/2024 13:59 EDT [facility] RDW-SD 43.2 <50.4 fl 07/05/2024 13:59 EDT [facility] PLT 209 141 - 377 K/cmm 07/05/2024 13:59 EDT [facility]COLOG[facility] MPV 8.8(L) 9.5 - 12.7 fL 07/05/2024 13:59 EDT [facility] % Neutrophils 60.7 % 07/05/2024 13:59 EDT [facility] ONCOLOGY [facility] % Lymphocytes 29.4 % 07/05/2024 13:59 EDT [facility] % Monocytes 7.1 % 07/05/2024 13:59 EDT [facility] % Eosinophils 1.8 % 07/05/2024 13:59 EDT [facility] % Basophils 0.8 % 07/05/2024 13:59 EDT [facility] % Immature Grans 0.2 <0.9 % 07/05/20 13:59 T [facility] ONCOLOGY [facility] Absolute Neutrophils 3.74 2.20 - 8.85 K/cmm 07/05/2024 13:59 EDT [facility] Absolute Lymphocytes 1.81 1.09 - 3.30 K/cmm 07/05/2024 13:59 T [facility] ONCOLOGY [facility] Absolute Monocytes 0.44 0.10 - 0.80 K/cmm 07/05/2024 13:59 EDT [facility] ONCOLOG[facility] Absolute Eosinophils 0.11 0.03 - 0.61 K/cmm 07/05/2024 13:59 EDT [facility] ABS Basophils 0.05 0.01 - 0.11 K/cmm 07/05/2024 13:59 T [facility] HEMATOLOGY & ONCOLOGY [facility] Absolute Immature Grans 0.01 0.00 - 0.06 K/cmm 07/05/2024 13:59 EDT [facility] Type of Differential: Auto 07/05/2024 13:59 EDT [facility] Blood VENOUS BLOOD / Unknown Venipuncture / Unknown 07/05/2024 13:52 EDT 07/05/2024 13:52 EDT Luz Maria Peter MAINFRAME APPLICATIONS DEVELOPER PACKAGES & DNA PRO BE ORDERABLES [facility] Medical Office [address], [address] * COMPREHENSIVE METABOLIC PANEL (CMP) (07/05/2024 13:52 EDT) Sodium 138 136 - 145 mmol/L 07/05/2024 18:08 [facility] Potassium 4.3 3.5 - 5.0 mmol/L 07/05/2024 18:08 [facility] Chloride 101 96 - 110 mmol/L 07/05/2024 18:08 [facility] CO2 Total 30 22 - 32 mmol/L 07/05/2024 18:08 [facility] Glucose 76 70 - 99 mg/dl 07/05/2024 18:08 [facility] BUN 15 10 - 26 mg/dL 07/05/2024 18:08 [facility] Creatinine 0.66 0.52 - 1.04 mg/dL 07/05/2024 18:08 [facility] eGFR 91 >60 mL/min/1.7 3m2 07/05/2024 18:08 [facility] Total Protein 7.2 6.3 - 8.2 g/dL 07/05/2024 18:08 [facility] Albumin 4.7 3.4 - 4.9 g/dL 07/05/2024 18:08 [facility] Alkaline Phosphatase 56 38 - 126 U/L 07/05/2024 18:08 [facility] AST 24 15 - 46 U/L 07/05/2024 18:08 [facility] ALT 17 <35 U/L 07/05/2024 18:08 [facility] Bilirubin, Total 0.8 <1.4 mg/dL 07/05/20 18:08 [facility] Calcium 9.5 8.5 - 10.5 mg/dL 07/05/2024 18:08 [facility] Albumin/Globulin Ratio 1.9 1.0 - 2.5 07/05/2024 18:08 [facility] Anion Gap 7 5 - 14 mmol/L 07/05/2024 18:08 [facility] Blood VENOUS BLOOD / Unknown Venipuncture / Unknown 07/05/2024 13:52 EDT 07/05/2024 13:52 EDT Luz Maria Peter MAINFRAME APPLICATIONS DEVELOPER CHEMISTRY & BLOOD GAS ORDERABLES [facility] [address] [place] [address] * LDH (07/05/2024 13:52 EDT) LDH 219 120 - 246 U/L 07/05/2024 17:48 EDT [facility] Blood VENOUS BLOOD / Unknown Venipuncture / Unknown 07/05/2024 13:52 EDT 07/05/2024 13:52 EDT Luz Maria Peter MAINFRAME APPLICATIONS DEVELOPER CHEMISTRY & BLOOD GAS ORDERABLES [facility] [address] [place] [address] documented in this encounter Visit Diagnoses Diagnosis History of lymphoma- Primary Personal history of other lymphatic and hematopoietic neoplasm documented in this encounter Care Teams Supplier Specialist Relationship Specialty Start Date End Date Clint Miramontes MD [address] [place] [phone] PCP - General 08/23/19 documented as of this encounter
--- OUTSIDE RECORDS SUMMARY | 2024-08-07 13:35 | XMS_ITS | Encounter Summary ---
Author Organization [facility] Address [address] [place] [address] Care Team Providers Care Inspector Machined Parts Name Role Phone Clint Miramontes MD Primary Care Provider [phone] Reason for Referral * Radiology Services (Routine/Next Available) - Authorization Not Required Specialty Diagnoses / Procedures Referred By Annia gan Referred To Contact Diagnoses Encounter for screening mammogram for malignant neoplasm of breast Procedures MA BREAST SCREENING ELO BILATERAL Clint Miramontes MD [address] [place] [phone] [facility] [place]erral ID Status Reason Start Date Expiration Date Visits Requested Visits Authorized [id number] Authorization Not Required 04/27/2024 1 1 Reason for Visit * Radiology Services (Routine/Next Available) - Authorization Not Required Specialty Diagnoses / Procedures Referred By Annia gan Referred To Contact Diagnoses Encounter for screening mammogram for malignant neoplasm of breast Procedures MA BREAST SCREENING ELO BILATERAL Clint Miramontes MD [address] [place] [address] [facility] Referral ID Status Reason Start Date Expiration Date Visits Requested Visits Authorized [id number] Authorization Not Required 04/27/2024 1 1 Encounter Details Date Type Department Care Team (Latest Contact Info) Description 07/05/2024 12:51 EDT - 07/05/2024 23:59 EDT Hospital Encounter [facility] Mammography [address] [place] [address] Encounter for screening mammogram for malignant neoplasm of breast Discharge Disposition: Home or Self Care Social [...] place to sleep or slept in a long-term (including now)? No 11/07/2023 Interpersonal Safety Answer [...] Sign Reading Time Taken Comments Blood Pressure - - Pulse - - Temperature - - Respiratory Rate - - Oxygen Saturation - - Inhaled Oxygen Concentration - - Weight 44 kg (97 lb) 07/05/2024 1310 EDT Height 146.1 cm (4' 9.5) 07/05/2024 1310 EDT Body Mass Index 20.63 07/05/2024 1310 EDT documented in this encounter [...] Sig Dispensed Refills Start Date End Date albuterol sulfate 90 mcg/actuation aero powdr breath act w/sensor Inhale 1 Puff as directed 6 times daily. 1 Each 3 05/19/2024 aspirin 81 mg EC tablet Take 1 Tablet by mouth daily. beclomethasone HFA (QVAR REDIHALER) 80 mcg/actuation inhaler Inhale 1 Puff as directed 2 times daily. 10.6 g 3 05/19/2024 cholecalciferol, Vitamin D3, 25 mcg (1,000 unit) tablet Take 2 Tablets by mouth daily. diazePAM (VALIUM) 2 mg tablet 1 tab PO bid PRN fying. 6 Tablet 3 04/03/2023 inhalational spacing device (E-Z SPACER) Inhale 1 Device as directed 2 times daily. For use with Flovent inhaler. Dx: J44.9. 1 Device 01/20/2020 LORazepam (ATIVAN) 1 mg tablet TAKE ONE TABLET BY MOUTH AT BEDTIME NEEDED FOR ANXIETY MAXIMUM DAILY DOSE = 1 30 Tablet 3 04/25/2024 lovastatin (MEVACOR) 40 mg tablet TAKE TWO TABLETS BY MOUTH EVERY DAY 180 Tablet 3 09/11/2023 documented as of this encounter Discharge Disposition Disposition Code Departure Means Destination Home or Self Care documented in this encounter Plan of Treatment Upcoming Encounters Date Type Department Care Team (Late st Contact Info) Description 08/10/2024 16:00 EDT Appointment [facility] MRI [address] [place], [place] [id number] 08/16/2024 14:00 EDT EMILIA [facility] OBGYN Ultrasound [address] [place] [address] 08/29/2024 14:00 EDT Office Visit [facility] OBGYN [address] [place] [phone] Ness Vilchis MD [address] [place] [address], [address] [place] [address] 08/31/2024 16:00 EDT Office Visit [facility] Orthopedics & Sport Medicine [address] [place] [address] Reema Peoples PA-C [address] [facility] [address] [place], [place] [phone] 09/01/2024 9:30 EDT Office Visit [facility] Rheumatology [address] [place] [phone] Lin Grider MD [address] [place] [address] [address] [place] [address] 11/08/2024 14:00 EST Office Visit [facility] Adult Hematology & Oncology [address] [place] [phone] Luz aMria Peter NP [address] [place] [address] [address] [place] [address] 11/22/2024 10:15 EST Office Visit [facility] Family Medicine - [place] [address] [place] [phone] Clint Miramontes MD [address] [place] [address] documented as of this encounter Procedures Procedure Name Priority Date/Time Associated Diagnosis Comments MA BREAST SCREENING ELO BILATERAL Routine 07/05/2024 13:18 EDT Encounter for screening mammogram for malignant neoplasm of breast documented in this encounter Results * MA BREAST SCREENING ELO BILATERAL (07/05/2024 [...] needed we will contact your patient directly. [address] [address] [id number] Narrative 07/06/2024 9:05 EDT MA BREAST SCREENING ELO BILATERAL ??07/05/2024 1:08 PM History: bilateral screening Comparison: ??Comparison has been made to previous images . ? Technique: Routine 3D tomosynthesis with synthesized 2D views with CAD Breast Composition: There are scattered areas of fibroglandular density. Bilateral Breast Findings: ??No significant masses, calcifications or other abnormalities are seen. Resulting Agency Comment [id number] Procedure Note Reji Carroll MD - 07/06/2024 [...] is needed we [place] [address] [id number] Clint Miramontes MD [facility] MAMMOGRAPHY [facility] documented in this encounter Visit Diagnoses Diagnosis Encounter for screening mammogram for malignant neoplasm of breast Other screening mammogram documented in this encounter Care Teams Inspector Machined Parts Relationship Specialty Start Date End Date Clint Miramontes MD [address] [place] [phone] PCP - General 08/23/19 documented as of this encounter
--- OUTSIDE RECORDS SUMMARY | 2024-08-07 13:35 | XMS_ITS | Encounter Summary ---
Author Organization [facility] Address [address] [place] [address] Care Team Providers Care Video Games Storywriter Name Role Phone Clint Miramontes MD Primary Care Provider [phone] Reason for Visit * Reason Comments Follow-up Osteoporosis. Encounter Details Date Type Department Care Team (Late st Contact Info) Description 09/01/2023 9:30 EDT Office Visit [facility] Rheumatology [address] [place] [address] Lin Grider MD 130 [facility] [address] [place] [address] Age-related osteoporosis without current pathological fracture (Primary Dx) Social History Tobacco Use Types [...] Sign Reading Time Taken Comments Blood Pressure 148/80 09/01/2023922 EDT Pulse 64 09/01/2023922 EDT Temperature 36 ??C (96.8 ??F) 09/01/2023922 EDT Respiratory Rate - - Oxygen Saturation - - Inhaled Oxygen Concentration - - Weight 42.8 kg (94 lb 6.4 oz) 09/01/2023922 ED T Height 149.9 cm (4' 11) 09/01/2023922 EDT Body Mass Index 19.07 09/01/2023922 EDT documented in this encounter Functional Status [...] No 05/15/2017 documented as of this encounter Patient Instructions * Patient Instructions* Lin Grider MD - 09/01/2023 9:30 EDT Will plan on Reclast infusion #3 in October documented in this encounter Progress Notes * Lin Grider MD - 09/01/2023 0930 EDT [facility] Rheumatology Chief Complaint Patient presents with ??? Follow-up Osteoporosis. HPI: Osteoporosis. Risk factors: low BMI Treatment: Ibandronate 08/2016-08/2021; then zoledronic acid 09/30/21, 10/02/22. Latest DXA: 06/18/23, [facility]: lowest T-score -3.1 at the left femoral neck; T-score mean total hip -1.8; T-score lumbar spine -1.6 (significant OA lumbar spine). Compared with prior DXA, lumbar spine BMD increased 5.7% and mean total hip BMD is unchanged. INTERVAL HISTORY: Mel returns for annual follow-up for osteoporosis. Mel received a second dose of zoledronic acid on 10/02/22. Today, Mel says she has had a lot happen since last here (see ROS). Mel denies any fractures.Says she is taking vit D as directed. Outpatient Encounter Medications as of 09/01/2023 Medication Sig ??? albuterol sulfate 90 mcg/actuation aero powdr breath act w/sensor Inhale 1 Puff as directed 6 times daily. (Patient taking differently: Inhale 1 Puff as directed 6 times daily. As needed) ??? aspirin 81 mg EC tablet Take 1 Tablet by mouth daily. ??? cholecalciferol, Vitamin D3, 25 mcg (1,000 unit) tablet Take 2 Tablets by mouth daily. ??? diazePAM (VALIUM) 2 mg tablet 1 tab PO bid PRN fying. (Patient taking differently: 1 tab PO bidPRN flying) ??? FLOVENT HFA 110 mcg/actuation inhaler INHALE 2 PUFFS EVERY 12 HOURS DIRECTED (Patient takingdifferently: daily as needed.) ??? inhalational spacing device (E-Z SPACER) Inhale 1 Device as directed 2 times daily. For use with Flovent inhaler. Dx: J44.9. ??? LORazepam (ATIVAN) 1 mg tablet TAKE ONE TABLET BY MOUTH AT BEDTIME NEEDED FOR ANXIETY Strength: 1 mg ??? lovastatin (MEVACOR) 40 mg tablet TAKE TWO TABLETS BY MOUTH EVERY DAY No facility-administered encounter medications on file as of 09/01/2023. Allergies include: Other - see comments, Crestor [rosuvastatin], and Pravastatin Patient Active Problem List Diagnosis ??? Cerebral aneurysm, nonruptured ??? Mixed hyperlipidemia ??? Anxiety ??? 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 Aneurysm (HCC-CMS) ??? Chronic obstructive pulmonary disease (HCC-CMS) ??? Female bladder prolapse ??? Impaired glucose tolerance ??? LBBB (left bundle branch block) ??? Age-related osteoporosis without current pathological fracture ??? Sleep disturbance ??? Vitamin D deficiency ??? Intramural leiomyoma of uterus ??? Other ovarian cyst, left side Review of Systems: Follows with oncology for h/o lymphoma. Last visit in 06/08/23, and all appeared stable. However, Mel has been losing weight and experiencing nausea. EGD normal, as well as cardiac work up and CT abdomen and pelvis. Today, Mel says this started last winter when out shoveling, she vomited. Then when out mowing, she vomited. Says during the stress test, she vomited as well. Also had Covid a month ago, and exhaustion worsened, but now better in terms of the exhaustion. Will be having a PET scan next month. Had injured her left knee and is going to PT for this. Has had left clavicle pain. Physical Examination: BP (!) 148/80 Pulse 64 Temp 36 ??C (96.8 ??F) Ht (!) 149.9 cm (59) Wt (!) 42.8 kg (94 lb 6.4 oz) BMI 19.07 kg/m?? JOINTS: Painless ROM shoulders, elbows. Knees without effusion. BACK: Mild thoracic kyphosis. Labs: Office Visit on 08/13/2023 Component Date Value Ref Range Status ??? WBC 08/13/2023 5.46 4.00 - 12.40 K/cmm Final ??? RBC 08/13/2023 4.45 3.86 - 5.04 M/cmm Final ??? Hemoglobin 08/13/2023 13.1 11.6 - 15.2 g/dL Final ??? HCT 08/13/2023 40.5 34.9 - 44.4 % Final ??? MCV 08/13/2023 91 81 - 98 fL Final ??? MCH 08/13/2023 29.4 26.7 - 33.3 pg Final ??? MCHC 08/13/2023 32.3 32.1 - 35.9 g/dL Final ? ? RDW-CV 08/13/2023 12.4 <14.7 % Final ? ? RDW-SD 08/13/2023 40.7 <50.4 fl Final ??? PLT 08/13/2023 246 141 - 377 K/cmm Final ??? MPV 08/13/2023 9.9 9.5 - 12.7 fL Final ??? % Neutrophils 08/13/2023 65.0 % Final ??? % Lymphocytes 08/13/2023 25.3 % Final ??? % Monocytes 08/13/2023 6.6 % Final ??? % Eosinophils 08/13/2023 2.0 % Final ??? % Basophils 08/13/2023 0.9 % Final ??? % Immature Grans 08/13/2023 0.2 % Final ??? Absolute Neutrophils 08/13/2023 3.55 2.20 - 8.85 K/cmm Final ??? Absolute Lymphocytes 08/13/2023 1.38 1.09 - 3.30 K/cmm Final ??? Absolute Monocytes 08/13/2023 0.36 0.10 - 0.80 K/cmm Final ??? Absolute Eosinophils 08/13/2023 0.11 0.03 - 0.61 K/cmm Final ??? ABS Basophils 08/13/2023 0.05 0.01 - 0.11 K/cmm Final ??? Absolute Immature Grans 08/13/2023 0.01 0.00 - 0.06 K/cmm Final ??? Type of Differential: 08/13/2023 Auto Final ??? TSH 08/13/2023 0.46 (L) 0.47 - 4.68 mIU/L Final ??? Lyme Antibody, IgG 08/13/2023 Negative Negative Final ??? Lyme Antibody, IgM 08/13/2023 Negative Negative Final ? ? Lipase 08/13/2023 86 <251 U/L Final ??? Amylase 08/13/2023 56 30 - 110 U/L Final ??? LDH 08/13/2023 176 120 - 246 U/L Final ? ? CA 125 08/13/2023 <3 <30 U/mL Final NOTE: Serum CA 125 concentration should not be interpreted as absolute evidence for the presence or absence of malignant disease. Assayed on Siemens ADVIA Centaur XPT using chemiluminescent technology. ??Values obtained by using different assay methods cannot be used interchangeably. ??? T4, Free 08/13/2023 1.2 0.8 - 2.2 ng/dL Final Lab Results Component Value Date CREATININE 0.58 06/08/2023 Lab Results Component Value Date CALCIUM 9.7 06/08/2023 Assessment and Plan: 1. Age-related osteoporosis without current pathological fracture Because of loss of BMD at the spine, despite ibandronate x 5 years, changed to zoledronic acid in 2020. Mel had two doses and has tolerated well. Repeat DXA this past June showed that lumbar spine BMD increased 5.7% and mean total hip BMD is unchanged. --Will repeat zoledronic acid for early Dec this year, and then plan to hold on further infusions. Will plan to repeat DXA in fall 2024. --Based on creatinine/calcium from 06/08/23, ok to proceed with zoledronic acid infusion in 10/2023. Follow up one year. I spent a total of 32 minutes on the date of this encounter meeting with the patient and reviewing documentation/coordinating care as described in the above note. No procedures were performed at the time of the visit. Lin Grider MD 09/01/2023 9:48 documented in this encounter Plan of Treatment Upcoming Encounters Date Type Department Care Team (Late st Contact Info) Description 08/10/2024 16:00 EDT Appointment [facility] MRI [address] [place], [place] [phone] 08/16/2024 14:00 EDT EMILIA [facility] OBGYN Ultrasound [address] [place] [phone] 08/29/2024 14:00 EDT Office Visit [facility] OBGYN [address] [place] [address] [phone] Ness Vilchis MD [address] [place] [address], [address] [place] [address] 08/31/2024 16:00 EDT Office Visit [facility] Orthopedics & Sport Medicine [address], [address] [place] [address] Reema Peoples PA-C [address] [facility] [address] [place], [place] [phone] 09/01/2024 9:30 EDT Office Visit [facility] Rheumatology [address] [place], [place] [phone] Lin Grider MD 130 [facility] [address] [place] [address] 11/08/2024 14:00 EST Office Visit [facility] Adult Hematology & Oncology [address] [place] [address], [place] [address] Luz Maria Peter NP 130 [facility] [address] [place] [address] 11/22/2024 10:15 EST Office Visit [facility] Family Medicine - [place] [address] [place] [phone] Clint Miramontes MD [address] [place] [phone] documented as of this encounter Visit Diagnoses Diagnosis Age-related osteoporosis without current pathological fracture- Primary Senile osteoporosis documented in this encounter Care Teams Video Games Storywriter Relationship Specialty Start Date End Date Clint Miramontes MD [address] [place] [phone] PCP - General 08/23/19 documented as of this encounter
--- OUTSIDE RECORDS SUMMARY | 2024-08-07 13:36 | XMS_ITS | Encounter Summary ---
Author Organization [facility] Address [address] [place] [address] Care Team Providers Care Batch Plant Supervisor Name Role Phone Clint Miramontes MD Primary Care Provider [phone] Reason for Referral * Cardiology (Routine/Next Available) - Closed Specialty Diagnoses / Procedures Referred By Annia gan Referred To Contact Nuclear Medicine Diagnoses Nausea Procedures NM CARD SPECT NUCLEAR STRESS Clint Miramontes MD [address] [place] [phone] [facility] Referral ID Status Reason Start Date Expiration Date Visits Re quested Visits Authorized [id number] Closed 04/08/2023 05/23/2023 1 1 Reason for Visit * Cardiology (Routine/Next Available) - Closed Specialty Diagnoses / Procedures Referred By Annia gan Referred To Contact Nuclear Medicine Diagnoses Nausea Procedures NM CARD SPECT NUCLEAR STRESS Clint Miramontes MD [address] [place] [phone] [facility] Referral ID Status Reason Start Date Expiration Date Visits Re quested Visits Authorized [id number] Closed 04/08/2023 05/23/2023 1 1 Encounter Details Date Type Department Care Team (Latest Contact Info) Description 04/29/2023 7:51 EDT Hospital Encounter [facility] Nuclear Medicine [address] [place] [phone] Nausea Discharge Disposition: Home or Self Care [...] Flovent inhaler. Dx: J44.9. 1 Device 01/20/2020 albuterol sulfate 90 mcg/actuation aero powdr breath act w/sensor Inhale 1 Puff as directed 6 times daily. 1 Each 3 04/21/2022 05/19/2024 fluticasone propionate (FLOVENT HFA) 110 mcg/actuation inhaler Inhale 2 Puffs as directed every 12 hours. 18 g 3 04/21/2022 05/07/2023 LORazepam (ATIVAN) 1 mg tablet TAKE ONE TABLET BY MOUTH AT BEDTIME NEEDED FOR ANXIETY 30 Tablet 3 04/20/2023 08/14/2023 lovastatin (MEVACOR) 40 mg tablet TAKE TWO TABLETS BY MOUTH EVERY DAY 180 Tablet 3 07/17/2022 09/11/2023 multivitamin capsule Take 1 Capsule by mouth daily. 06/02/2023 documented as of this encounter Discharge Disposition Disposition Code Departure Means Destination Home or Self Care documented in this encounter Plan of Treatment Upcoming Encounters Date Type Department Care Team (Late st Contact Info) Description 08/10/2024 16:00 EDT Appointment [facility] MRI [address] [place], [place] [id number] 08/16/2024 14:00 EDT EMILIA [facility] OBGYN Ultrasound [address] [place] [address] [phone] 08/29/2024 14:00 EDT Office Visit [facility] OBGYN [address] [place] [phone] Ness Vilchis MD [address] [place] [address], [address] [place] [phone] 08/31/2024 16:00 EDT Office Visit [facility] Orthopedics & Sport Medicine [address], [address] [place], [place] [phone] Reema Peoples, PAToñoC [address] [facility] [address] [place], [place] [phone] 09/01/2024 9:30 EDT Office Visit [facility] Rheumatology [address] [place] [phone] Lin Grider MD [address] [place], [place] [address] [address] [place] [address] 11/08/2024 14:00 EST Office Visit [facility] Adult Hematology & Oncology [address] [place] [phone] Luz Maria Peter NP [address] [place], [place] [address] [address] [place] [address] 11/22/2024 10:15 EST Office Visit [facility] Family Medicine - [place] [address] [place] [address] Clint Miramontes MD [address] [place] [phone] documented as of this encounter Procedures Procedure Name Priority Date/Time Associated Diagnosis Comments NM CARD SPECT PHARM MULT STUDIES COMPLETE Routine 04/29/2023 10:22 EDT Nausea documented in this encounter Results * NM CARD SPECT PHARM MULT STUDIES COMPLETE (04/29/2023 10:22 EDT) Target HR 147 bpm ISITEMERGECARDIO Nuc Stress EF 71 % ISITEMERGECARDIO Anatomical Region Laterality Modality Chest Nuclear Medicine Narrative 04/29/2023 14:31 EDT ?Perfusion: There was a ??mild intensity, small sized fixed perfusion defect in the apex. There is no evidence of transient ischemic dilation (TID). ?Function: Global LV function is normal. Post-stress ejection fraction is 71 %. Nuclear Study Quality Overall image quality is good. Stress Function Comments Global LV function was normal. Post-stress ejection fraction was 71 %. The left ventricle size was normal at stress. There were no regional wall motion abnormalities. Baseline ECG There was normal sinus rhythm. There was left bundle branch block noted on the baseline ECG. Stress ECG There were no significant ST segment deviations noted during stress. There were no significant arrhythmias noted during stress. HPI and Indications History: 72 year old female c/o intense vomiting with heavy exertion (mowing lawn, shoveling, etc.). ADL's ok, able to work without issues. Exertion seems to cause her to vomit profusely then she feels fine (after rest). Occasional chest twinge during these episodes, denies any other symptoms. Does report some random nausea occasionally through the day. No previous cardiac hx. Patient Status Risk Factors Known family history of coronary artery disease, former smoker, COPD and dyslipidemia. Stress Data Regadenoson. LBBB. Stress Impression - Nondiagnostic study. Medications Aspirin and statins. Supervising Physician Mel Maynard MD supervised and was immediately available during the procedure. Perfusion Defect There was a mild intensity, small sized fixed perfusion defect in the apex. Associated with normal wall motion, consistent with artifact. There was no evidence of transient ischemic dilation (TID). Image Protocol Myocardial perfusion imaging using SPECT/CT was performed. The study was a 1-day rest-stress study. Attenuation correction was used. The patient was imagined in the supine position. Images acquired at rest and post stress were processed and reviewed. Nuc Impression There was normal perfusion and function and normal contraction. Negative for inducible ischemia after pharmacological stress. Clint Miramontes MD CARDIAC NM ORDERABLE S documented in this encounter Visit Diagnoses Diagnosis Nausea Nausea alone documented in this encounter Administered Medications Inactive Administered Medications - up to 3 most recent administrations Medication Order MAR Action Action Date Dose Rate Site technetium (Tc-99m) sestamibi injection 10 millicurie 10 millicurie, radiopharm IV, Once in imaging, 1 dose, Starting on Thu04/29/23 at 0801, Until Thu04/29/23 at 0810, Routine, Imaging Protocol Orders Given 04/29/2023 8:10 EDT 10.2 millicuries technetium (Tc-99m) sestamibi injection 30 millicurie 30 millicurie, radiopharm IV, Once in imaging, 1 dose, Starting on Thu04/29/23 at 0801, Until Thu04/29/23 at 0930, Routine, Imaging Protocol Orders Given 04/29/2023 9:30 EDT 31.5 millicuries documented in this encounter Care Teams Batch Plant Supervisor Relationship Specialty Start Date End Date Clint Miramontes MD [address] [place] [phone] PCP - General 08/23/19 documented as of this encounter
--- OUTSIDE RECORDS SUMMARY | 2024-08-07 13:36 | XMS_ITS | Encounter Summary ---
Author Organization [facility] Address [address] [place] [address] Care Team Providers Care Distribution Manager Name Role Phone Clint Miramontes MD Primary Care Provider [phone] Reason for Visit * Reason Onset Date Comments Other 08/10/2023 Encounter Details Date Type Department Care Team (Late st Contact Info) Description 08/10/2023 Telephone [facility] Rheumatology [address] [place] [address] Lin [facility] MD [address] [facility] [address] [place] [phone] Other Social History Tobacco Use Types Packs/Day [...] encounter Miscellaneous Notes * Telephone Encounter - Danya Lyles - 08/10/2023 1158 EDT Pt LVM She is confused. Received AVS in portal just now from Dr Grider. She has not had appt nor due for one till end of Aug. Was this sent in error. Dose not look like any information has been sent. documented in this encounter Plan of Treatment Upcoming Encounters Date Type Department Care Team (Late st Contact Info) Description 08/10/2024 16:00 EDT Appointment [facility] MRI [address] [place], [place] [phone] 08/16/2024 14:00 EDT EMILIA [facility] OBGYN Ultrasound [address] [place], [place] [phone] 08/29/2024 14:00 EDT Office Visit [facility] OBGYN [address] [place] [phone] Ness Vilchis MD [address] [place] [address]A, [address] [place] [phone] 08/31/2024 16:00 EDT Office Visit [facility] Orthopedics & Sport Medicine [address], [address] [place], [place] [phone] Reema Peoples PA-C [address] [facility] [address] [place], [place] [phone] 09/01/2024 9:30 EDT Office Visit [facility] Rheumatology [address] [place], [place] [phone] Lin Grider MD 130 [facility] [address] [place] [phone] 11/08/2024 14:00 EST Office Visit [facility] Adult Hematology & Oncology [facility] [place] [address] Luz Maria Peter NP 130 [facility], [facility] [address] [place] [address] 11/22/2024 10:15 EST Office Visit [facility] Family Medicine - [place] [address] [place] [phone] Clint Miramontes MD [address] [place] [phone] documented as of this encounter Visit Diagnoses Not on filedocumented in this encounter Care Teams Distribution Manager Relationship Specialty Start Date End Date Clint Miramontes MD [address] [place] [phone] PCP - General 08/23/19 documented as of this encounter
--- OUTSIDE RECORDS SUMMARY | 2024-08-07 13:36 | XMS_ITS | Encounter Summary ---
Author Organization [facility] Address [address] [place] [address] Care Team Providers Care Weaver Wire Loom Name Role Phone Clint Miramontes MD Primary Care Provider [phone] Reason for Referral * Cardiology (Routine/Next Available) - Closed Specialty Diagnoses / Procedures Referred By Annia gan Referred To Contact Nuclear Medicine Diagnoses Nausea Procedures NM CARD SPECT NUCLEAR STRESS Clint Miramontes MD [address] [place] [address] [facility] Referral ID Status Reason Start Date Expiration Date Visits Re quested Visits Authorized [id number] Closed 04/08/2023 05/23/2023 1 1 * Cardiology (Routine/Next Available) - New Request Specialty Diagnoses / Procedures Referred By Annia gan Referred To Contact Diagnoses Nausea Procedures EKG 12-LEAD Clint Miramontes MD [address] [place] [address] Referral ID Status Reason Start Date Expiration Date V isits Requested Visits Authorized [id number] New Request 04/03/2023 1 1 Reason for Visit * Reason Comments Medication Management 6 month f/u Encounter Details Date Type Department Care Team (Latest Contact Info) Description 04/03/2023 10:30 EDT Office Visit [facility] - [facility] Family Medicine - [address] [place] [address] Clint Miramontes MD [address] [place] [address] Gastroesophageal reflux disease, unspecified whether esophagitis present (Primary Dx); Chronic obstructive pulmonary disease, unspecified COPD type (HCC-CMS); 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 ([facility]-CMS); Chronic pain of left knee; Nausea Social History Tobacco Use Types Packs/Day Years [...] Sign Reading Time Taken Comments Blood Pressure 120/70 04/03/2023 1030 EDT Pulse 81 04/03/2023 1030 EDT Temperature 36.4 ??C (97.6 ??F) 04/03/2023 1030 EDT Respiratory Rate 18 04/03/2023 1030 EDT Oxygen Saturation 100% 04/03/2023 1030 EDT Inhaled Oxygen Concentration - - Weight 46.7 kg (103 lb) 04/03/2023 1030 EDT Height - - Body Mass Index 21.16 08/18/2022 0938 EDT documented in this encounter Functional Status [...] Dispensed Refills Start Date End Da te diazePAM (VALIUM) 2 mg tablet 1 tab PO bid PRN fying. 6 Tablet 3 04/03/2023 documented in this encounter Progress Notes * Clint Miramontes MD - 04/03/2023 1030 EDT Subjective: Patient ID: Mel Ramirez is an 72 y.o. female. Follow up HPI 1)??Lipids - managed with lipid medications. ??No side effects. 2)??COPD - using MDI albuterol and Flovent. No chronic cough. ??No chest pains. No shortness of breath. 3)??Anxiety - sparing use of lorazapam. ??No SI/HI. ??No panic attacks. 4)Marginal Zone lymphoma - doing well. ??No B symptoms. ?Seein by Onc last month CT scans from 05/27/22 reviewed with showed no evidence of pathologically enlarged nodes. No evidence of recurrent disease. Will return to clinic in 6 months. 5) L knee pain - seen by Ortho recently. PT recommended. 01/22 XR knee: IMPRESSION Mild degenerative changes of the knee. 6)Exertional nausea/vomiting - when she is shoveling and mowing lawn with push mower. No chest pains. No shortness of breath. No palpitations. Mom with TX. CT chest 05/23: IMPRESSION 1. No pathologically enlarged lymph nodes. 2. No acute abnormality. CT abd/pelvis 05/23: IMPRESSION 1. No pathologically enlarged lymph nodes. 2. No acute abnormality. CT neck 05/23: IMPRESSION No pathologically enlarged lymph nodes or acute abnormality identified. US pelvis: 2021 1.) 2 adjacent left ovarian cysts, grossly not appreciably changed in size from 07/19/2021 when accounting for slight differences in measurement technique. 2.) Fibroid uterus. Lab Results Component Value Date WBC 5.51 03/09/2023 HGB 13.9 03/09/2023 HCT 39.8 03/09/2023 MCV 90 03/09/2023 PLT 213 03/09/2023 Lab Results Component Value Date CREATININE 0.58 03/25/2023 Lab Results Component Value Date NA 141 03/25/2023 K 4.4 03/25/2023 CL 105 03/25/2023 CO2 29 03/25/2023 .lastl Patient Active Problem Patient Active Problem List Diagnosis ??? Cerebral aneurysm, nonruptured ??? Mixed hyperlipidemia ??? Anxiety ??? 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 Aneurysm (HCC-CMS) (HCC) ??? Chronic obstructive pulmonary disease (HCC-CMS) ??? Female bladder prolapse ??? Impaired glucose tolerance ??? LBBB (left bundle branch block) ??? Age-related osteoporosis without current pathological fracture ??? Sleep disturbance ??? Vitamin D deficiency ??? Intramural leiomyoma of uterus ??? Other ovarian cyst, left side Past Medical History: Diagnosis Date ??? Aneurysm (HCC-CMS) (HCC) ??? 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 Cancer (HCC-CMS) (HCC) lymphoma-marry marginal ??? Chronic obstructive pulmonary disease (HCC-CMS) 10/06/2019 ??? 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 Hypercholesteremia ??? Inguinal lymphadenopathy ??? Osteoporosis 10/06/2019 ??? Psychiatric problem anxiety Past Surgical History: Procedure Laterality Date ??? HERNIA REPAIR left groin ??? LYMPH NODE BIOPSY left neck & node removal ??? TONSILLECTOMY ??? VAGINAL PROLAPSE REPAIR Family History Problem Relation Age of Onset ??? Lung Cancer Mother ??? Lymphoma Mother ??? Diabetes Mother ??? Hypertension Mother ??? Breast Cancer Paternal Grandmother ??? Stroke Maternal Grandmother ??? Hypertension Father ??? Hypertension Brother ??? Breast Cancer Paternal Aunt ??? Liver Cancer Paternal Aunt ??? Stomach Cancer Paternal Uncle ??? Pancreatic Cancer Maternal Uncle ??? Diabetes Maternal Uncle Social Social History Tobacco Use ??? Smoking status: Former Packs/day: 1.00 Types: Cigarettes Start date: 1963 Quit date: 07/03/1982 Years since quittin.7 ??? Smokeless tobacco: Never ??? Tobacco comments: 1981 quit Vaping Use ??? Vaping Use: Former ??? Substances: THC ??? Devices: Pre-filled or refillable cartridge Substance Use Topics ??? Alcohol use: No ??? Drug use: Yes Frequency: 5.0 times per week Types: Marijuana Comment: smokes and does edibles Current Outpatient Medications on File Prior to Visit Medication Sig Dispense Refill ??? albuterol sulfate 90 mcg/actuation aero powdr breath act w/sensor Inhale 1 Puff as directed 6 times daily. (Patient taking differently: Inhale 1 Puff as directed 6 times daily. As needed) 1 Each 3 ??? aspirin 81 mg EC tablet Take 81 mg by mouth daily. ??? cholecalciferol, Vitamin D3, 25 mcg (1,000 unit) tablet Take 2,000 Units by mouth daily. ??? fluticasone propionate (FLOVENT HFA) 110 mcg/actuation inhaler Inhale 2 Puffs as directed every12 hours. 18 g 3 ??? inhalational spacing device (E-Z SPACER) Inhale 1 Device as directed 2 times daily. For use with Flovent inhaler. Dx: J44.9. 1 Device 0 ??? LORazepam (ATIVAN) 1 mg tablet Take 1 Tablet by mouth at bedtime as needed for Anxiety. Daily Max: 1 mg 30 Tablet 3 ??? lovastatin (MEVACOR) 40 mg tablet TAKE TWO TABLETS BY MOUTH EVERY DAY 180 Tablet 3 ??? multivitamin capsule Take 1 Capsule by mouth daily. (Patient not taking: No sig reported) No current facility-administered medications on file prior to visit. Allergies Allergen Reactions ??? Crestor [Rosuvastatin] Rash ??? Other - See Comments Wasp stings- swollen local reactions ??? Pravastatin Rash ROS - See HPI Objective: BP 120/70 Pulse 81 Temp 36.4 ??C (97.6 ??F) (Oral) Resp 18 Wt 46.7 kg (103 lb) SpO2 100% BMI 21.16 kg/m?? Wt Readings from Last 3 Encounters: 04/03/23 46.7 kg (103 lb) 03/09/23 46.7 kg (103 lb) 01/23/23 47.4 kg (104 lb 6.4 oz) BP Readings from Last 3 Encounters: 04/03/23 120/70 03/09/23 130/60 01/23/23 140/70 Physical Exam Gen: Alert and oriented. No distress Cardiovascular: Normal rate, regular rhythm and normal heart sounds. No murmurs. Pulmonary/Chest: Effort normal and breath sounds normal. Abdomen: soft NT/ND. No hepatosplenomegaly Lymph: no lymphadenopathy. Psychiatric: normal mood and affect. EKG VR 58 bpm Timothy 150 ms QTC 449 ms LBBB Assessment: Lymphoma - follow up with Oncology. ? Lipids - conitnue statin. ? Anxiety - managed with prn lorazapam. ?She is not interested in SSRIs. ?No SI/HI. L knee pain - PT follow up with ortho. Exertional nausea/vomiting - EKG today. EST. She is agreeable with plan. Follow up with me in 4-6 mo ?? I spent a total of 31 minutes on the date of this encounter meeting with the patient and reviewing documentation/coordinating care as described in the above note. 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 diazePAM (VALIUM) 2 mg tablet Si tab PO bid PRN . Dispense: 6 Tablet Refill: 3 documented in this encounter Plan of Treatment Upcoming Encounters Date Type Department Care Team (Late st Contact Info) Description 08/10/2024 16:00 EDT Appointment [facility] MRI [address] [place] [address] 08/16/2024 14:00 EDT EMILIA [facility] OBGYN Ultrasound [address] [place] [address] 08/29/2024 14:00 EDT Office Visit [facility] OBGYN [address] [place] [address] Ness Vilchis MD [address] [facility] [place] [phone] 08/31/2024 16:00 EDT Office Visit [facility] Orthopedics & Sport Medicine [address], [address] [place], [place] [address] Reema Peoples PA-C [address] [facility] [address] [place], [place] [phone] 09/01/2024 9:30 EDT Office Visit [facility] Rheumatology [address] [facility], [place] [phone] Lin Grider MD [address] [facility] [address] [place] [address] 11/08/2024 14:00 EST Office Visit [facility] Adult Hematology & Oncology [facility], [place] [phone] Luz Maria Petre, GABRIEL [address] [facility] [address] [place] [address] 11/22/2024 10:15 EST Office Visit [facility] Family Medicine - [place] [address] [place] [address] Clint Miramontes MD [address] [place] [phone] Scheduled Orders Name Type Priority Associated Diagnoses Orde r Schedule EKG 12-LEAD ECG Routine Nausea Expected: 04/03/2023 (Approximate) documented as of this encounter Results * NM CARD SPECT [...] documented in this encounter Visit Diagnoses Diagnosis Gastroesophageal reflux disease, unspecified whether esophagitis present- Primary Chronic obstructive pulmonary disease, unspecified COPD type (HCC-CMS) 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) Chronic pain of left knee Pain in joint, lower leg Nausea Nausea alone Nausea Nausea alone documented in this encounter Discontinued Medications Medication Sig Discontinue Reason Start Date End Da te diazePAM (VALIUM) 2 mg tablet 1 tab PO bid PRN . Reorder 11/21/2021 04/03/2023 documented as of this encounter Care Teams Weaver Wire Loom Relationship Specialty Start Date End Date Clint Miramontes MD [address] [place] [phone] PCP - General 08/23/19 documented as of this encounter
--- OUTSIDE RECORDS SUMMARY | 2024-08-07 13:36 | XMS_ITS | Encounter Summary ---
Author Organization [facility] Address [address] [place] [address] Care Team Providers Care Loading Unit Operator Seating Name Role Phone Clint Miramontes MD Primary Care Provider [phone] Reason for Referral * Radiology Services (STAT) - Authorization Not Required Specialty Diagnoses / Procedures Referred By [place] t Referred To Contact Diagnoses Nausea Elevated pancreatic enzyme Procedures CT ABDOMEN PELVIS W CONTRAST Clint Miramontes MD [address] [place] [address] [facility] Referral ID Status Reason Start Date Expiration Date Visits Requested Visits Authorized [id number] Authorization Not Required 06/04/2023 1 1 Reason for Visit * Radiology Services (STAT) - Authorization Not Required Specialty Diagnoses / Procedures Referred By Annia gan Referred To Contact Diagnoses Nausea Elevated pancreatic enzyme Procedures CT ABDOMEN PELVIS W CONTRAST Clint Miramontes MD [address] [place] [phone] [facility] Referral ID Status Reason Start Date Expiration Date Visits Requested Visits Authorized [id number] Authorization Not Required 06/04/2023 1 1 Encounter Details Date Type Department Care Team (Latest Contact Info) Description 06/08/2023 9:05 EDT - 06/08/2023 23:59 EDT Hospital Encounter [facility] CT Scan [address] [place] [address] Nausea; Elevated pancreatic enzyme Discharge Disposition: Home or Self Care Social [...] EVERY DAY 180 Tablet 3 07/17/2022 09/11/2023 documented as of this encounter Discharge Disposition Disposition Code Departure Means Destination Home or Self Care documented in this encounter Plan of Treatment Upcoming Encounters Date Type Department Care Team (Late st Contact Info) Description 08/10/2024 16:00 EDT Appointment [facility] MRI [address] [place], [place] [id number] 08/16/2024 14:00 EDT EMILIA [facility] OBGYN Ultrasound [address] [place] [address] 08/29/2024 14:00 EDT Office Visit [facility] OBGYN [address] [place] [phone] Ness Vilchis MD [address] [place] [address], [address] [place] [phone] 08/31/2024 16:00 EDT Office Visit [facility] Orthopedics & Sport Medicine [address] [place] [address] Reema Peoples PA-C [address] [facility] [address] [place], [place] [phone] 09/01/2024 9:30 EDT Office Visit [facility] Rheumatology [address] [place] [phone] Lin Grider MD [address] [place] [address] [address] [place] [address] 11/08/2024 14:00 EST Office Visit [facility] Adult Hematology & Oncology [address] [place] [address], [place] [phone] Luz Maria Peter, GABRIEL [address] [place] [address], [facility] [address] [place] [phone] 11/22/2024 10:15 EST Office Visit [facility] - [facility] Family Medicine - [place] [address] [place] [address] Clint Miramontes MD [address] [place] [phone] documented as of this encounter Procedures Procedure Name Priority Date/Time Associated Diagnosis Comments CT ABDOMEN PELVIS W CONTRAST STAT 06/08/2023 9:56 EDT Nausea Elevated pancreatic enzyme documented in this encounter Results * CT ABDOMEN PELVIS W CONTRAST (06/08/2023 9:56 EDT) Anatomical Region Laterality Modality Body, Abdomen, Pelvis, Abdomen and Pelvis Computed Tomography 06/08/2023 10:3 2 EDT Impressions 06/08/2023 10:32 EDT 1. ??No acute abdominopelvic abnormality identified. No CT evidence of acute pancreatitis, however this cannot be excluded by imaging alone. 2. ??Ovoid 5 mm hypodense pancreatic tail lesion, stable compared to 2012, therefore likely benign. 3. ??Calcified fibroids. 4. ??BILOCULAR 2.8 CM LEFT ADNEXAL CYSTIC LESION, similar to the prior ultrasound of July 2022, although enlarged compared to older studies. O-RADS category 2: Almost certainly benign. Per ACR guidelines, surveillance ultrasound is recommended in 12 months. 5. ??Chronic mild right hydronephrosis and proximal hydroureter of uncertain etiology, similar to 2012. Clinical correlation required. 6. ??Additional nonemergent findings detailed above. [id number] Narrative 06/08/2023 10:[address] ABDOMEN PELVIS W CONTRAST ?? Signs and Symptoms/Comments: ??wt loss elevated pancreatic enzymes; wt loss elevated pancreatic enzymes;R11.0:Nausea;R74.8:Elevated pancreatic enzyme Comparison: CT abdomen pelvis on 07/05/2021, 01/21/2012. Ultrasound pelvis on 07/14/2022, 07/19/2021. Technique: CT abdomen and pelvis was performed with the administration of 100 cc Omnipaque 350 intravenous contrast. Multiplanar reconstructions were performed. FINDINGS: Visible Chest: Mild bibasilar atelectasis versus scarring. Liver: Stable tiny cyst versus focal fatty replacement in the left hepatic lobe, adjacent to the falciform ligament (axial series 201 image 35). Bile Ducts: Unremarkable. Gallbladder: Unremarkable. Pancreas: Ovoid 5 mm hypodense pancreatic tail lesion, stable compared to 2012 (axial series 201 image 32). Main pancreatic duct remains normal in caliber. No peripancreatic inflammatory changes identified. Spleen: Unremarkable. Adrenal glands: Unremarkable. Kidneys: Chronic mild right hydronephrosis and proximal hydroureter of uncertain etiology, although similar to 2012. No delayed nephrogram. Small simple- appearing cyst incidentally noted in the right kidney lower pole. Tiny nonobstructing calculus in the left kidney upper pole. No left hydronephrosis. No perinephric inflammatory changes. Bowel: Stomach unremarkable. Small bowel unremarkable. Normal appendix. Colon unremarkable. Peritoneal Cavity: No intraperitoneal free fluid or free air identified. Body Wall: Possible small fat-containing right inguinal hernia. Bladder: Unremarkable. Pelvis/Reproductive: Retroverted uterus with multiple calcified fibroids measuring up to 3 cm (sagittal series 203 image 60). Bilocular 2.8 cm left adnexal cystic lesion, essentially unchanged from the prior ultrasound of July 2022, although enlarged from 2.[address] the prior CT of 2020 (coronal series 202 image 51). Lymph Nodes: Unremarkable. Vascular Structures: Mild-moderate peripheral atherosclerotic disease. Bones: No evidence of osseous metastatic disease. Moderate-severe lumbar spondylosis. Chronic left-sided L5 pars defect, with associated grade 1 anterolisthesis of L5 on S1. Mild bilateral hip and sacroiliac degenerative changes. Procedure Note Trent Burgess MD - 06/08/2023 CT ABDOMEN PELVIS W CONTRAST Signs and Symptoms/Comments: wt loss elevated pancreatic enzymes; wt losselevated pancreatic enzymes;R11.0:Nausea;R74.8:Elevated pancreaticenzyme Comparison: CT abdomen pelvis on 07/05/2021, 01/21/2012. Ultrasound pelvis on07/14/2022, 07/19/2021. Technique: CT abdomen and pelvis was performed with the administration of100 cc Omnipaque 350 intravenous contrast. Multiplanar reconstructionswere performed. FINDINGS: Visible Chest: Mild bibasilar atelectasis versus scarring. Liver: Stable tiny cyst versus focal fatty replacement in the left hepaticlobe, adjacent to the falciform ligament (axial series 201 image 35). Bile Ducts: Unremarkable. Gallbladder: Unremarkable. Pancreas: Ovoid 5 mm hypodense pancreatic tail lesion, stable compared [id number] (axial series 201 image 32). Main pancreatic duct remains normal incaliber. No peripancreatic inflammatory changes identified. Spleen: Unremarkable. Adrenal glands: Unremarkable. Kidneys: Chronic mild right hydronephrosis and proximal hydroureter ofuncertain etiology, although similar to 2012. No delayed nephrogram. Smallsimple-appearing cyst incidentally noted in the right kidney lower pole.Tiny nonobstructing calculus in the left kidney upper pole. No lefthydronephrosis. No perinephric inflammatory changes. Bowel: Stomach unremarkable. Small bowel unremarkable. Normal appendix.Colon unremarkable. Peritoneal Cavity: No intraperitoneal free fluid or free air identified. Body Wall: Possible small fat-containing right inguinal hernia. Bladder: Unremarkable. Pelvis/Reproductive: Retroverted uterus with multiple calcified fibroidsmeasuring up to 3 cm (sagittal series 203 image 60). Bilocular 2.8 cm leftadnexal cystic lesion, essentially unchanged from the prior ultrasound ofSept2021, although enlarged from 2.2 cm on the prior CT of 2020(coronal series 202 image 51). Lymph Nodes: Unremarkable. Vascular Structures: Mild-moderate peripheral atherosclerotic disease. Bones: No evidence of osseous metastatic disease. Moderate-severe lumbarspondylosis. Chronic left-sided L5 pars defect, with associated grade 1anterolisthesis of L5 on S1. Mild bilateral hip and sacroiliacdegenerative changes. IMPRESSION 1. No acute abdominopelvic abnormality identified. No CT evidence ofacute pancreatitis, however this cannot be excluded by imaging alone. 2. Ovoid 5 mm hypodense pancreatic tail lesion, stable compared to 2011,therefore likely benign. 3. Calcified fibroids. 4. BILOCULAR 2.8 CM LEFT ADNEXAL CYSTIC LESION, similar to the priorultrasound of July 2022, although enlarged compared to older studies.O-RADS category 2: Almost certainly benign. Per ACR guidelines,surveillance ultrasound is recommended in 12 months. 5. Chronic mild right hydronephrosis and proximal hydroureter ofuncertain etiology, similar to 2012. Clinical correlation required. 6. Additional nonemergent findings detailed above. [id number] Clint Miramontes MD IMG CT ORDERABLES documented in this encounter Visit Diagnoses Diagnosis Nausea Nausea alone Elevated pancreatic enzyme Other nonspecific abnormal serum enzyme levels documented in this encounter Administered Medications Inactive Administered Medications - up to 3 most recent administrations Medication Order MAR Action Action Date Dose Rate Site iohexoL (OMNIPAQUE 350) solution 100 mL 100 mL, intravenous, Once in imaging, 1 dose, Starting on Thu06/08/23 at 0956, Until Thu06/08/23 at 0957, Routine, Imaging Protocol Orders Given 06/08/2023 9:57 EDT 100 mL documented in this encounter Care Teams Loading Unit Operator Seating Relationship Specialty Start Date End Date Clint Miramontes MD [address] [place] [address] PCP - General 08/23/19 documented as of this encounter
--- OUTSIDE RECORDS SUMMARY | 2024-08-07 13:36 | XMS_ITS | Encounter Summary ---
Author Organization [facility] Address [address] [place] [address] Care Team Providers Care Reading Interventionist Name Role Phone Clint Miramontes MD Primary Care Provider [phone] Reason for Referral * Radiology Services (Routine/Next Available) - Authorization Not Required Specialty Diagnoses / Procedures Referred By Contac t Referred To Contact Radiology Diagnoses Cyst of left ovary Procedures US PELVIS TRANSVAGINAL Ness Vilchis MD [address] [place] [address], [address] [place] [address] [address] Referral ID Status Reason Start Date Expiration Date Visits Requested Visits Authorized [id number] Authorization Not Required 07/14/2022 1 1 Reason for Visit * Radiology Services (Routine/Next Available) - Authorization Not Required Specialty Diagnoses / Procedures Referred By Contac t Referred To Contact Radiology Diagnoses Cyst of left ovary Procedures US PELVIS TRANSVAGINAL Ness Vilchis MD [address] [place] [address], [address] [place] [address] [address] Referral ID Status Reason Start Date Expiration Date Visits Requested Visits Authorized [id number] Authorization Not Required 07/14/2022 1 1 Encounter Details Date Type Department Care Team (Latest Contact Info) Description 07/13/2023 14:31 EDT - 07/13/2023 23:[address] [facility] Ultrasound [address] [place] [address] Cyst of left ovary Discharge Disposition: Home or Self Care Social [...] Info) Description 08/10/2024 16:[address] [facility] MRI [address] [place], [place] [id number] 08/16/2024 14:[address] [facility] OBGYN Ultrasound [address] [place] [address] 08/29/2024 14:[address] [facility] OBGYN [address] [place] [phone] Ness Vilchis MD [address] [place], [place] [address]A, [address] [place] [address] 08/31/2024 16:[address] [facility] Orthopedics & Sport Medicine [address], [address] [place] [address] Reema Peoples, PA-C 1311 [facility] [address] [place], [place] [phone] 09/01/2024 9:[address] [facility] Rheumatology [address] [place] [address] Lin Grider MD [address] [place] [address] [address] [place] [phone] 11/08/2024 14:[address] [facility] Adult Hematology & Oncology [address] [place] [address] Luz Maria Peter, GABRIEL 130 [facility], [facility] [address] [place] [phone] 11/22/2024 10:15 EST Office [place] [facility] [address] [place] [address] Clint Miramontes MD [address] [place] [phone] documented as of this encounter Procedures Procedure Name Priority Date/Time Associated Diagnosis Comments US PELVIS TRANSVAGINAL COMPLETE Routine 07/13/2023 15:02 EDT Cyst of left ovary documented in this encounter Results * US PELVIS TRANSVAGINAL (07/13/2023 15:02 EDT) Anatomical Region Laterality Modality Pelvis Ultrasound 07/13/2023 15:3 2 EDT Impressions 07/13/2023 15:32 EDT 1. ??BILOCULAR 2.9 CM LEFT OVARIAN CYST, slowly enlarging compared to 2020. O- RADS category 2: Almost certainly benign. Per ACR guidelines for this postmenopausal patient, surveillance ultrasound is recommended in 1 year. 2. ??Fibroid uterus, as detailed above. [id number] Narrative 07/13/2023 15:32 EDT US PELVIS TRANSVAGINAL COMPLETE ?? Signs and Symptoms/Comments: ??no symptoms;N83.202:Cyst of left ovary Comparison: Ultrasound on 07/14/2022, 07/19/2021. Technique: Pelvic Ultrasound - Transvaginal approach was performed. FINDINGS: Uterus: ?? Orientation: Retroverted Size: 4.6 cm x 3.1 cm x 4.8 cm Findings: Fibroid uterus, similar to 2021. Director Payment calcified 2.8 cm intramural fibroid in the ventral uterine body. Director Payment subserosal 1.9 cm fibroid along the dorsal uterine body/fundus. Cervix: Normal. Endometrium: Findings: Endometrial alignment homogeneous. Trace anechoic fluid noted in the endometrial canal. Thickness: 1.4 mm Postmenopausal (per patient) Ovaries: ?? Right ovary: Size: 1.2 cm x 0.8 cm x 1.0 cm. Volume : 0.5 cc. Doppler flow: Color Doppler flow is grossly present, however waveforms were not assessed. Findings: None. Left ovary: Size: 3.2 cm x 2.1 cm x 2.3 cm. Volume : 7.9 cc. Doppler flow: Color Doppler flow is grossly present, however waveforms were not assessed. Findings: Bilocular 2.9 cm left ovarian cyst, mildly enlarged from 2.7 cm in 2021, and 2.3 cm in 2020. Cul-de-sac: No free fluid. Procedure Note Trent Burgess MD - 07/13/2023 US PELVIS TRANSVAGINAL COMPLETE Signs and Symptoms/Comments: no symptoms;N83.202:Cyst of left ovary Comparison: Ultrasound on 07/14/2022, 07/19/2021. Technique: Pelvic Ultrasound - Transvaginal approach was performed. FINDINGS: Uterus: Orientation: Retroverted Size: 4.6 cm x 3.1 cm x 4.8 cm Findings: Fibroid uterus, similar to 2021. Director Payment calcified 2.8 cmintramural fibroid in the ventral uterine body. Director Payment subserosal1.9 cm fibroid along the dorsal uterine body/fundus. Cervix: Normal. Endometrium: Findings: Endometrial alignment homogeneous. Trace anechoic fluid noted inthe endometrial canal. Thickness: 1.4 mm Postmenopausal (per patient) Ovaries: Right ovary: Size: 1.2 cm x 0.8 cm x 1.0 cm. Volume : 0.5 cc. Doppler flow: Color Doppler flow is grossly present, however waveformswere not assessed. Findings: None. Left ovary: Size: 3.2 cm x 2.1 cm x 2.3 cm. Volume : 7.9 cc. Doppler flow: Color Doppler flow is grossly present, however waveformswere not assessed. Findings: Bilocular 2.9 cm left ovarian cyst, mildly enlarged from 2.7 cmin 2021, and 2.3 cm in 2020. Cul-de-sac: No free fluid. IMPRESSION 1. BILOCULAR 2.9 CM LEFT OVARIAN CYST, slowly enlarging compared to 2020.O-RADS category 2: Almost certainly benign. Per ACR guidelines for thispostmenopausal patient, surveillance ultrasound is recommended in 1year. 2. Fibroid uterus, as detailed above. [id number] Ness Vilchis MD IMG US OB ORDERABLES documented in this encounter Visit Diagnoses Diagnosis Cyst of left ovary Other and unspecified ovarian cyst documented in this encounter Care Teams Reading Interventionist Relationship Specialty Start Date End Date Clint Miramontes MD [address] [place] [phone] PCP - General 08/23/19 documented as of this encounter
--- OUTSIDE RECORDS SUMMARY | 2024-08-07 13:36 | XMS_ITS | Encounter Summary ---
Author Organization [facility] Address [address] [place] [address] Care Team Providers Care Dot Etcher Name Role Phone Clint Miramontes MD Primary Care Provider [phone] Reason for Visit * Reason Onset Date Comments Provider Referred 06/10/2023 Encounter Details Date Type Department Care Team (Late st Contact Info) Description 06/10/2023 Telephone [facility] Adult Hematology & Oncology [address] [place] [address] Brionna Mata, AIRAM [address] [place], [place] [phone] Provider Referred Social History Tobacco Use Types Packs/Day Years [...] encounter Miscellaneous Notes * Telephone Encounter - Brionna Mata RD - 06/10/2023 1543 EDT Brief Nutrition Note Referral received today from medical oncology. Patient is not in active treatment, but experiencingsome unintentional weight loss. Called patient and left voicemail with contact information to set up appointment. Offered in-person or phone. Brionna Mata MS, RD, CD, CNSC documented in this encounter Plan of Treatment Upcoming Encounters Date Type Department Care Team (Late st Contact Info) Description 08/10/2024 16:00 EDT Appointment [facility] MRI [address] [place], [place] [id number] 08/16/2024 14:00 EDT EMILIA [facility] OBGYN Ultrasound [address] [place], [place] [address] 08/29/2024 14:00 EDT Office Visit [facility] OBGYN [address] [place], [place] [phone] Ness Vilchis MD 130 [facility], [address] [place] [address] 08/31/2024 16:00 EDT Office Visit [facility] Orthopedics & Sport Medicine [address], [address] [place] [address] Reema Peoples PA-C 1311 [facility] [address] [place], [place] [phone] 09/01/2024 9:30 EDT Office Visit [facility] Rheumatology [address] [place], [place] [phone] Lin Grider MD 130 [facility] [address] [place] [address] 11/08/2024 14:00 EST Office Visit [facility] Adult Hematology & Oncology [address] [place] [address], [place] [address] Luz Maria Peter NP 130 [facility], [facility] [address] [place] [address] 11/22/2024 10:15 EST Office Visit [facility] Family Medicine - [place] [address] [place] [address] Clint Miramontes MD [address] [place] [phone] documented as of this encounter Visit Diagnoses Not on filedocumented in this encounter Care Teams Dot Etcher Relationship Specialty Start Date End Date Clint Miramontes MD [address] [place] [phone] PCP - General 08/23/19 documented as of this encounter
--- OUTSIDE RECORDS SUMMARY | 2024-08-07 13:36 | XMS_ITS | Encounter Summary ---
Author Organization [facility] Address [address] [place] [address] Care Team Providers Care Cloth Dyer Name Role Phone Clint Miramontes MD Primary Care Provider [phone] Reason for Visit * Reason Onset Date Comments COVID-19 07/30/2023 Encounter Details Date Type Department Care Team (Late st Contact Info) Description 07/30/2023 Telephone [facility] [place] [address] [place] [address] Clint Miramontes MD [address] [place] [phone] COVID-19 Social History Tobacco Use Types Packs/Day Years [...] Dispensed Refills Start Date End Da te nirmatrelvir-ritonavir (PAXLOVID 300-100, EUA,) 300 mg (150 mg x 2)-100 mg tablet Take 3 Tablets by mouth 2 times daily for 5 days. 30 Each 07/30/2023 08/04/2023 documented in this encounter Miscellaneous Notes * Telephone Encounter - Clover Lund RN - 07/31/2023 0809 EDT Per Jessica's message: Mel is still losing weight , she is still vomiting , she was wondering if she should get a cortisol test, her friend a doctor recommended this for her with her symptoms. Please advise. Scheduled to see you on 08/13/23. * Telephone Encounter - Clover Lund RN - 07/31/2023 0807 EDT Mel called this AM and left a message for the front end loader operator. She states that she was able to [facility]id [facility], so no further action needed in that regard. Confirmed with Mel that she got Corina's message re: Flovent and also confirmed that she knows to stop the statin (and reviewed when to restart it). Mel wasn't sure yet if she even wanted to take Paxlovid. I said that some people with mild symptoms only, such as Mel, do not take it, but I advised, given her age and other risk factors, that she take it. She agreed. She is aware of the most common side effects and will call back PRN. * Telephone Encounter - Luz Maria Hdz RN - 07/30/2023 1714 EDT [facility] in [place] sent a fax stating they are out of the medication. I called Mel and left a detailed message. Her 2nd choice would be [facility] in [facility]. Called and they were unable to answer my call. Please reach out to Mel and transfer to an appropriate pharm or see if [facility] got any in overnight. * Telephone Encounter - Luz Maria Hdz RN - 07/30/2023 1308 EDT Mel is still losing weight , she is still vomiting , she was wondering if she should get a cortisol test, her friend a doctor recommended this for her with her symptoms. * Telephone Encounter - Corina Edwards PA-C - 07/30/2023 1158 EDT I would recommend stopping the Flovent during this time if possible- Paxlovid may??increase the serum concentration of Fluticasone. However if this acutely affects her breathing she should continue it and monitor for symptoms. * Telephone Encounter - Luz Maria Hdz RN - 07/30/2023 1036 EDT - Are you fully vaccinated? (Update from Registry): - When did your symptoms start? Thursday07/30/23 - What symptoms are you currently having? Rhinitis , headache, body aches. No fever. No cough, no chest congestion. Very mild sx. - Hydrating and eating ok? No issues - BM and Urination: no issues - Home care/OTC treatment reviewed:mucinex, tylenol,advil - Does patient qualify for treatment Paxlovid or Monoclonal ab?: yes. - eGFR (include in Rx): 95 ??? - Reviewed warning signs of COVID-19 to call 911: SOB, Chest pain, new confusion, inability to wakeor stay awake, cyanosis?:reviewed - Reviewed quarantine guidelines?: yes Corina joseph would like Paxlovid sent she is unsure if she will fill it. She is aware to stop the statin. Please advise if she can continue the flovent. * Telephone Encounter - Mynor Cobb - 07/30/2023 1029 EDT Patient developed symptoms Thursday or Thursday of runny nose, maybe a slight headache. Tested positive Thursday night for COVID. Patient is fully vaccinated and is asking if she should pursuit an rx for paxlovid. documented in this encounter Plan of Treatment Upcoming Encounters Date Type Department Care Team (Late st Contact Info) Description 08/10/2024 16:00 EDT Appointment [facility] MRI [address] [place], [place] [id number] 08/16/2024 14:00 EDT EMILIA [facility] OBGYN Ultrasound [address] [place] [address] 08/29/2024 14:00 EDT Office Visit [facility] OBGYN [address] [place] [phone] Ness Vilchis MD 130 [facility]-, [address] [place] [address] 08/31/2024 16:00 EDT Office Visit [facility] Orthopedics & Sport Medicine [address], [address] [place] [address] Reema Peoples PA-C 1311 [facility] [address] [place], [place] [phone] 09/01/2024 9:30 EDT Office Visit [facility] Rheumatology [address] [place], [place] [address] Lin Grider MD 130 [facility] [address]OB[address] [place] [address] 11/08/2024 14:00 EST Office Visit [facility] Adult Hematology & Oncology [facility] [place] [address] Luz Maria Peter NP 130 [facility], [facility] [address] [place] [address] 11/22/2024 10:15 EST Office Visit [facility] Family Medicine - [place] [address] [place] [phone] Clint Miramontes MD [address] [place] [phone] documented as of this encounter Visit Diagnoses Not on filedocumented in this encounter Care Teams Cloth Dyer Relationship Specialty Start Date End Date Clint Miramontes MD [address] [place] [phone] PCP - General 08/23/19 documented as of this encounter
--- OUTSIDE RECORDS SUMMARY | 2024-08-07 13:36 | XMS_ITS | Encounter Summary ---
Author Organization [facility] Address [address] [place] [address] Care Team Providers Care Trade Facilitator Name Role Phone Clint Miramontes MD Primary Care Provider [phone] Reason for Referral * PT/OT/ST (Routine/Next Available) - Authorization Not Required Specialty Diagnoses / Procedures Referred By Annia gan Referred To Contact Rehab Therapies Diagnoses Chronic pain of both knees Neck pain Clint Miramontes MD [address] [place] [phone] [facility] [address] [place] [address] Referral ID Status Reason Start Date Expiration Date Visits Requested Visits Authorized [id number] Authorization Not Required Specialty Services Required 3 2 2 Question Answer Reason for Request: Knee pain/neck pain Comments This referral may serve as a referral to occupational therapy if appropriate. Reason for Visit * Reason Onset Date Comments Referral Request 04/21/2023 Encounter Details Date Type Department Care Team (Late st Contact Info) Description 04/21/2023 Telephone [facility] [place] [address] [place] [address] Clint Miramontes MD [address] [place] [phone] Referral Request Social History Tobacco Use Types Packs/Day Years [...] encounter Miscellaneous Notes * Telephone Encounter - Mynor Cobb - 04/21/2023 0951 EDT Patient is receiving PT services for a knee concern, patient is also experiencing some concerns with neck and would like additional referral for her neck to be sent to [facility] PT documented in this encounter Plan of Treatment Upcoming Encounters Date Type Department Care Team (Late st Contact Info) Description 08/10/2024 16:00 EDT Appointment [facility] MRI [address] [place] [address] 08/16/2024 14:00 EDT EMILIA [facility] OBGYN Ultrasound [address] [place], [place] [address] 08/29/2024 14:00 EDT Office Visit [facility] OBGYN [address] [place] [address] Ness Vilchis MD 130 [facility], [address] [place] [address] 08/31/2024 16:00 EDT Office Visit [facility] Orthopedics & Sport Medicine [address], [address] [place] [address] Reema Peoples PA-C 1311 [facility] [address] [place] [address] 09/01/2024 9:30 EDT Office Visit [facility] Rheumatology [address] [place], [place] [phone] Lin Grider MD [address] [facility] [address] [place] [address] 11/08/2024 14:00 EST Office Visit [facility] Adult Hematology & Oncology [address] [place] [phone] Luz Maria Peter NP 130 [facility] [address] [place] [address] 11/22/2024 10:15 EST Office Visit [facility] Family Medicine - [place] [address] [place] [phone] Clint Miramontes MD [address] [place] [phone] Scheduled Referrals Name Type Priority Associated Diagnoses Order Schedule AMB CONS/FOLLOW UP [facility]YS[facility] [place] [facility] [place] Referral Routine/Next Available Chronic pain of both knees Neck pain Expected: 04/28/2023 (Approximate), Expires: 04/21/2024 documented as of this encounter Visit Diagnoses Diagnosis Chronic pain of both knees- Primary Neck pain Cervicalgia documented in this encounter Care Teams Trade Facilitator Relationship Specialty Start Date End Date Clint Miramontes MD [address] [place] [phone] PCP - General 08/23/19 documented as of this encounter
--- OUTSIDE RECORDS SUMMARY | 2024-08-07 13:36 | XMS_ITS | Encounter Summary ---
Author Organization [facility] Address [address] [place] [address] Care Team Providers Care Repertoire Manager Name Role Phone Clint Miramontes MD Primary Care Provider [phone] Reason for Referral * Radiology Services (Routine/Next Available) - New Request Specialty Diagnoses / Procedures Referred By Contac t Referred To Contact Diagnoses Age-related osteoporosis without current pathological fracture Procedures DXA BONE DENSITY Lin Grider MD [address] [facility] [address] [place] [address] [facility] Referral ID Status Reason Start Date Expiration Date V isits Requested Visits Authorized [id number] New Request 08/18/2022 1 1 Reason for Visit * Radiology Services (Routine/Next Available) - New Request Specialty Diagnoses / Procedures Referred By Contac t Referred To Contact Diagnoses Age-related osteoporosis without current pathological fracture Procedures DXA BONE DENSITY Lin Grider MD [address] [facility] [address] [place] [address] [facility] Referral ID Status Reason Start Date Expiration Date V isits Requested Visits Authorized [id number] New Request 08/18/2022 1 1 Encounter Details Date Type Department Care Team (Latest Contact Info) Description 06/18/2023 14:04 EDT - 06/18/2023 23:59 EDT Hospital Encounter [facility] Xray [address] [place] [address] Age-related osteoporosis without current pathological fracture Discharge Disposition: Home or Self Care Social [...] Description 08/10/2024 16:00 EDT Appointment [facility] MRI [address] [place], [place] [phone] 08/16/2024 14:00 EDT EMILIA [facility] OBGYN Ultrasound [address] [place] [phone] 08/29/2024 14:00 EDT Office Visit [facility] OBGYN [address] [place] [phone] Ness Vilchis MD [address] [place] [address]A, [address] [place] [address] 08/31/2024 16:00 EDT Office Visit [facility] Orthopedics & Sport Medicine [address], [address] [place] [address] Reema Peoples, PAToñoC 1311 [facility] [address] [place], [place] [phone] 09/01/2024 9:30 EDT Office Visit [facility] Rheumatology [address] [place] [phone] Lin Grider MD [address] [place] [address] [address] [place] [address] 11/08/2024 14:00 EST Office Visit [facility] Adult Hematology & Oncology [address] [place] [phone] Luz Maria Peter, GABRIEL [address] [place] [address], [address] [place] [address] 11/22/2024 10:15 EST Office Visit [facility] Family Medicine - [place] [address] [place] [address] Clint Miramontes MD [address] [place] [phone] documented as of this encounter Procedures Procedure Name Priority Date/Time Associated Diagnosis Comments DXA BONE DENSITY Routine 06/18/2023 14:4 6 EDT Age-related osteoporosis without current pathological fracture documented in this encounter Results * DXA BONE DENSITY (06/18/2023 14:46 EDT) Anatomical Region Laterality Modality DEXA Narrative 06/21/2023 19:42 EDT Table formatting from the original result was not included. Indication: osteopenia; monitoring treatment; height loss; history of glucocorticoids; cancer; asthma or emphysema; Accession number: [id number] Clinical Information Provided by Patient: Has taken [...] PM. Lin Grider MD IMG DEXA ORDERABLES documented in this encounter Visit Diagnoses Diagnosis Age-related osteoporosis without current pathological fracture Senile osteoporosis documented in this encounter Care Teams Repertoire Manager Relationship Specialty Start Date End Date Clint Miramontes MD [address] [place] [phone] PCP - General 08/23/19 documented as of this encounter
--- OUTSIDE RECORDS SUMMARY | 2024-08-07 13:36 | XMS_ITS | Encounter Summary ---
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) Procedures UPPER ENDOSCOPY (EGD) Clint Miramontes MD [address] [place] [phone] [facility] [address] [place] [address] Referral ID Status Reason Start Date Expiration Date V isits Requested Visits Authorized [id number] Authorized 1 1 Reason for Visit * Referral (Urgent) - Authorized Specialty Diagnoses / Procedures Referred By Contact Referred To Contact Gastroenterology and Hepatology Diagnoses Nausea 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 (FORMERLY [facility]) Discharge Disposition: Home or Self Care Social [...] Sign Reading Time Taken Comments Blood Pressure 123/63 06/25/2023 1000 EDT Pulse 89 06/25/2023 0801 EDT Temperature 35.9 ??C (96.6 ??F) 06/25/2023 0941 EDT Respiratory Rate 19 06/25/2023 1000 EDT Oxygen Saturation 95% 06/25/2023 1000 EDT Inhaled Oxygen Concentration - - Weight 44.5 kg (98 lb) 06/25/2023 0801 EDT Height 149.9 cm (4' 11) 06/25/2023 0801 EDT Body Mass Index 19.79 06/25/2023 0801 EDT documented in this encounter Functional Status [...] or Self Care documented in this encounter H&P Notes * Alida Willoughby MD - 06/25/2023 0850 EDT Endoscopy Sedation for Procedure History & Physical Date: 06/25/2023 Time: 9:14 Location: [facility] Endoscopy - [facility] Planned Procedure: Upper Endoscopy Chief Complaint/Indications for Procedure: Nausea, vomiting, weight loss History Previous Complication with Sedation and/or Anesthesia? No Allergies: Allergies Allergen Reactions ??? Crestor [Rosuvastatin] Rash ??? Other - See Comments Wasp stings- swollen local reactions ??? Pravastatin Rash Current Medications: Current Outpatient Medications Medication ??? albuterol [...] tablet No current facility-administered medications for this encounter. Past Medical History: Past Medical History: Diagnosis Date ??? Aneurysm (HCC-CMS) (HCC) ??? 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 Cancer (HCC-CMS) (HCC) lymphoma-marry marginal ??? Chronic obstructive pulmonary disease (HCC-CMS) 10/06/2019 ??? 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 Colon polyp ??? Hypercholesteremia ??? Inguinal lymphadenopathy ??? Mental disorder ??? Osteoporosis 10/06/2019 ??? Psychiatric problem anxiety Social History: Past Surgical History: Procedure Laterality Date ??? HERNIA REPAIR left groin ??? LYMPH NODE BIOPSY left neck & node removal ??? TONSILLECTOMY ??? VAGINAL PROLAPSE REPAIR Social History Tobacco Use ??? Smoking status: Former Packs/day: 1 Types: Cigarettes Start date: 1963 Quit date: 07/03/1982 Years since quittin.0 ??? Smokeless tobacco: Never ??? Tobacco comments: 1981 quit Substance Use Topics ??? Alcohol use: No Family History: Family History Problem Relation Age of Onset ??? Lung Cancer Mother ??? Lymphoma Mother ??? Diabetes Mother ??? Hypertension Mother ??? Breast Cancer Paternal Grandmother ??? Stroke Maternal Grandmother ??? Hypertension Father ??? Hypertension Brother ??? Breast Cancer Paternal Aunt ??? Liver Cancer Paternal Aunt ??? Stomach Cancer Paternal Uncle ??? Pancreatic Cancer Maternal Uncle ??? Diabetes Maternal Uncle Review of Systems as pertinent: Physical Exam Vital Signs: BP (!) 152/74 Pulse 89 Temp 36 ??C (96.8 ??F) (Temporal) Resp 20 Ht (!) 149.9 cm (59) Wt (!) 44.5 kg (98 lb) SpO2 98% BMI 19.79 kg/m?? Heart Examination: Cardiac Regularity: Regular Respiratory Examination: Respiratory Pattern: Regular Breath Sounds Right: Clear Breath Sounds Left: Clear Abdominal Examination: Soft, non-tender, bowel sounds normal, no masses, no organomegaly Additional physical exam related to the proposed procedure, patient activity, disease state and treatment as pertinent: Assessment Previous complications with sedation or anesthesia?: No Airway Concerns: None/NA Anesthesia Classification: ASA 2 Plan: Proceed with sedation for procedure Fasting Time: Date of Last Liquid: 06/25/23 Time of Last Liquid: 0545 Date of Last Solid: 06/24/23 Time of Last Solid: 2100 Patient Appropriate Candidate for Planned Sedation?: Yes Alida Willoughby MD 06/25/2023 9:14 documented in this encounter Plan of Treatment Upcoming Encounters Date Type Department Care Team (Late st Contact Info) Description 08/10/2024 16:00 EDT Appointment [facility] MRI [address] [place] [address] 08/16/2024 14:00 EDT EMILIA [facility] OBGYN Ultrasound [address] [place] [id number] 08/29/2024 14:00 EDT Office Visit [facility] OBGYN [address] [place] [address] [phone] Ness Vilchis MD [address] [facility] [place] [address] 08/31/2024 16:00 EDT Office Visit [facility] Orthopedics & Sport Medicine [address] [place] [address] Reema Peoples PA-C [address] [facility] [address] [place], [place] [phone] 09/01/2024 9:30 EDT Office Visit [facility] Rheumatology [address], [place] [phone] Lin Grider MD [address] [facility] [address] [place] [address] 11/08/2024 14:00 EST Office Visit [facility] Adult Hematology & Oncology [address] [place] [address] Luz Maria Peter NP [address] [facility], [facility] [address] [place] [address] 11/22/2024 10:15 EST Office Visit [facility] Family Medicine - [place] [address] [place] [address] Clint Miramontes MD [address] [place] [phone] Pending Results Name Type Priority Associated Diagnoses Date /Time UPPER ENDOSCOPY (EGD) GI STAT Nausea 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 ([facility]) 06/25/2023 9:30 EDT Scheduled Orders Name Type Priority Associated Diagnoses Orde r Schedule UPPER ENDOSCOPY (EGD) GI STAT Nausea 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 Informed consent was obtained from the patient after explaining all the risks (perforation, bleeding, infection and adverse effects to the medicine), benefits and alternatives to the procedure which the patient appeared to understand and so stated. ??The patient was connected to the monitoring devices and placed in the left lateral position. Continuous oxygen was provided with a nasal cannula and IV medicine administered through a indwelling cannula. After adequate sedation was achieved the gastroscope was inserted under direct vision into the esophagus and then carefully advanced to the third part of duodenum. The third part of duodenum was identified by visual landmarks. The scope was subsequently removed slowly while carefully examining the color, texture, anatomy, and integrity of the mucosa on withdrawal. The patient was subsequently transferred to the recovery area in satisfactory condition. Estimated Blood Loss: None Complications None Medications Demerol 75 mg Versed 3 mg I was in continuous face to face attendance during the administration of moderate sedation services that were monitored by an independent trained observer who had no other duties during the procedure. ??Total sedation time was 10 ?? minutes. Findings Esophagus: Normal Stomach: Normal Duodenum: Normal Diagnosis Normal EGD to the third part of the duodenum Recommendations Follow up with referring physician The??procedure??was??performed??by??Dr. Alida Willoughby MD in the presence of Dr. Darrin Teixeira. The attending physician was in the room for the entire procedure. This electronic signature authenticates all electronic and/or handwritten documentation, including orders, generated by the signer during the episode of care contained in this record. 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) documented in this encounter Administered Medications Inactive Administered Medications - up to 3 most recent administrations Medication Order MAR Action Action Date Dose Rate Site lidocaine (XYLOCAINE) 2 % viscous solution oral, As needed, Starting on Corinna 06/25/23 at 0923, Until Corinna 06/25/23 at 0923, Routine, Intraprocedure Given 06/25/2023 9:23 EDT 5 mL meperidine (PF) (DEMEROL) injection intravenous, As needed, Starting on Corinna 06/25/23 at 0926, Until Corinna 06/25/23 at 0930, Routine, Intraprocedure Given 06/25/2023 9:30 EDT 25 mg Given 06/25/2023 9:26 EDT 50 mg midazolam (VERSED) injection intravenous, As needed, Starting on Corinna 06/25/23 at 0926, Until Corinna 06/25/23 at 0930, Routine, Intraprocedure Given 06/25/2023 9:30 EDT 1 mg Given 06/25/2023 9:26 EDT 2 mg documented in this encounter Orders Medications Ordered That Allan ht Not Have Been Administered Count Last Ordered Date First Ordered Date diphenhydrAMINE (BENADRYL) injection 25 mg 1 06/25/2023 lactated ringers (LR) infusion 1 06/25/2023 lidocaine 1 % injection 2 mg 2 06/25/2023 sodium chloride 0.9 % (flush) flush 3 mL 1 06/25/2023 sodium chloride 0.9 % (flush) flush 5 mL 1 06/25/2023 sodium chloride 0.9 % (NS) infusion 1 06/25 Discharge Count Last Ordered Date First Orde red Date DISCHARGE PATIENT 1 06/25/2023 documented in this encounter Care Teams Beverage Steward Relationship Specialty Start Date End Date Clint Miramontes MD [address] [place] [address] PCP - General 08/23/19 documented as of this encounter
--- OUTSIDE RECORDS SUMMARY | 2024-08-07 13:36 | XMS_ITS | Encounter Summary ---
Author Organization [facility] Address [address] [place] [address] Care Team Providers Care Surgical First Assistant Name Role Phone Jackelyn Miramontes MD Primary Care Provider [phone] Reason for Referral * Radiology Services (Routine/Next Available) - Authorized Specialty Diagnoses / Procedures 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 (HCC-[facility]) Weight loss Nausea Procedures PET CT EYE TO THIGH Jackelyn Miramontes MD [address] [place] [phone] [place] [address] [place] [address] Referral ID Status Reason Start Date Expiration Date V isits Requested Visits Authorized [id number] Authorized 08/18/2023 10/02/2023 1 1 Reason for Visit * Reason Comments Follow-up Nausea, weakness, we ight loss, fatigue, low appetite Encounter Details Date Type Department Care Team ( Contact Info) Description 08/13/2023 11:30 EDT Office Visit [facility] [place] [facility] [place] [address] [place] [phone] Jackelyn Miramontes MD [address] [place] [phone] 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) (Primary Dx); Weight loss; Nausea; Encounter for immunization Social History Tobacco Use Types Packs/Day Years [...] Sign Reading Time Taken Comments Blood Pressure 112/70 08/13/2023 1130 EDT Pulse 79 08/13/2023 1130 EDT Temperature - - Respiratory Rate 14 08/13/2023 1130 EDT Oxygen Saturation - - Inhaled Oxygen Concentration - - Weight 41.9 kg (92 lb 4.8 oz) 08/13/2023 1130 ED T Height 149.9 cm (4' 11) 08/13/2023 1130 EDT Body Mass Index 18.64 08/13/2023 1130 EDT documented in this encounter Functional Status [...] as of this encounter Progress Notes * Cedrick Contreras RN - 08/13/2023 1130 EDT Labs drawn. Site collected right ac. Reason: See assessment code. Ordering Provider Dr Miramontes. Patient tolerated procedure well. Consent given by patient . Double verification done by Maame Curtis RN . Patient tolerated procedure well. * Jackelyn Miramontes MD - 08/13/2023 1130 EDT Subjective: Patient ID: Mel Ramirez is an 73 y.o. female. Chief Complaint Patient presents with ??? Follow-up Nausea, weakness, weight loss, fatigue, low appetite HPI Mel has a history of Lymphoma. She has had ongoing weight loss over the past several months. Labs initially high for lipase. Abdominal imaging was reassuring. She has had a fairly recent visit with Heme Onc. CBC/CMP/TSH/SPEP/Lipase recently within normal limits. Diet is poor. She does not eat much for breakfast/lunch. No diarrhea. Periodic nausea with exertion. Cardiac workup normal. EGD normal. Periodic sweats and fatigue. Patient Active Problem List Diagnosis ??? Cerebral [...] Medical History: Diagnosis Date ??? Aneurysm (HCC-CMS) ??? 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 Cancer (HCC-CMS) lymphoma-marry marginal ??? Chronic obstructive pulmonary disease (HCC-CMS) 10/06/2019 ??? 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 Colon polyp ??? Hypercholesteremia ??? Inguinal lymphadenopathy ??? Mental disorder ??? Osteoporosis 10/06/2019 ??? Psychiatric problem anxiety Current Outpatient Medications on [...] taking differently: 1 tab PO bidPRN flying) 6 Tablet 3 ??? FLOVENT HFA 110 mcg/actuation inhaler INHALE 2 PUFFS EVERY 12 HOURS DIRECTED 12 g 3 ??? inhalational spacing device (E-Z SPACER) Inhale 1 Device as directed 2 times daily. For use with Flovent inhaler. Dx: J44.9. 1 Device 0 ??? LORazepam (ATIVAN) 1 mg tablet TAKE ONE TABLET BY MOUTH AT BEDTIME NEEDED FOR ANXIETY (Patient taking differently: at bedtime. Patient taking differently taking nightly) 30 Tablet 3 ??? lovastatin (MEVACOR) 40 mg tablet TAKE TWO TABLETS BY MOUTH EVERY DAY 180 Tablet 3 No current facility-administered medications on file prior to visit. Allergies Allergen Reactions ??? Other - See Comments Wasp stings- swollen local reactions, no throat swelling ??? Crestor [Rosuvastatin] Rash ??? Pravastatin Rash Social Social History Tobacco Use ??? Smoking status: Former Current packs/day: 0.00 Average packs/day: 1 pack/day for 18.7 years (18.7 ttl pk-yrs) Types: Cigarettes Start date: 1963 Quit date: 07/03/1982 Years since quittin.1 ??? Smokeless tobacco: Never ??? Tobacco comments: 1981 quit Vaping Use ??? Vaping Use: Former ??? Substances: THC ??? Devices: Pre-filled or refillable cartridge Substance Use Topics ??? Alcohol use: No ??? Drug use: Yes Frequency: 5.0 times per week Types: Marijuana Comment: smokes and does edibles ROS - See HPI Objective: BP 112/70 (BP Cuff Location: Right arm, BP Patient Position: Sitting, BP Cuff Sizes: Adult, regular) Pulse 79 Resp 14 Ht (!) 149.9 cm (59) Wt (!) 41.9 kg (92 lb 4.8 oz) BMI 18.64 kg/m?? Physical Exam Physical Exam Gen: Alert and oriented. No distress HEENT: EOMI, PERRLA, TMs normal. Mouth/Throat: Oropharynx is clear. Landmarks visible. Neck: Normal range of motion. No lesions. Cardiovascular: Normal rate, regular rhythm and normal heart sounds. No murmurs. Pulmonary/Chest: Effort normal and breath sounds normal. Abdomen: soft NT/ND. No hepatosplenomegaly Neuro: no gross defects. Skin: Skin is warm. No rash. Lymph: no lymphadenopathy. Psychiatric: normal mood and affect. Assessment: Weight loss, nausea - etiology unclear. Labs today. Consider CT chest. I am reaching out to Heme/Onc. She is agreeable with plan. I spent a total of 31 minutes on the date of this encounter meeting with the patient and reviewing documentation/coordinating care as described in the above note. Plan: Mel was seen today for follow-up. Diagnoses and all orders for this visit: 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) - COMPLETE BLOOD COUNT AND DIFFERENTIAL - TSH - LYME AB SCREEN, IGG AND IGM - LIPASE - AMYLASE - LDH Weight loss - COMPLETE BLOOD COUNT AND DIFFERENTIAL - TSH - LYME AB SCREEN, IGG AND IGM - LIPASE - AMYLASE - LDH Nausea - COMPLETE BLOOD COUNT AND DIFFERENTIAL - TSH - LYME AB SCREEN, IGG AND IGM - LIPASE - AMYLASE Encounter for immunization - INFLUENZA VACCINE QUAD HIGH DOSE (FLUZONE HIGH DOSE) PF 0.7 ML IM (65 YRS+) No follow-ups on file. documented in this encounter Miscellaneous Notes * Addendum Note - Jackelyn Miramontes MD - 08/13/2023 1130 EDTAddended by: JACKELYN MIRAMONTES on: 08/14/2023 08:41 Modules accepted: Orders documented in this encounter Plan of Treatment Upcoming Encounters Date Type Department Care Team (Late st Contact Info) Description 08/10/2024 16:00 EDT Appointment [facility] MRI [address] [place] [address] 08/16/2024 14:00 EDT EMILIA [facility] OBGYN Ultrasound [address] [place] [address] 08/29/2024 14:00 EDT Office Visit [facility] OBGYN [address] [place] [address] Ness Vilchis MD [address] [facility], [address] [place] [address] 08/31/2024 16:00 EDT Office Visit [facility] Orthopedics & Sport Medicine [address] [place], [place] [id number] Reema Peoples PA-C [address] [facility] [address] [place], [place] [address] 09/01/2024 9:30 EDT Office Visit [facility] Rheumatology [address] [facility], [place] [id number] Lin Grider MD [address] [facility] [address] [place] [address] 11/08/2024 14:00 EST Office Visit [facility] Adult Hematology & Oncology [facility], [place] [phone] Luz Maria Peter NP [address] [facility] [address] [place] [address] 11/22/2024 10:15 EST Office Visit [facility] Family Medicine - [place] [address] [place] [address] Jackelyn Miramontes MD [address] [place] [phone] documented as of this encounter Procedures Procedure Name Priority Date/Time Associated Diagnosis Comments LYME AB SCREEN, IGG AND IGM Routine 08/13/2023 12:08 EDT 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) Weight loss Nausea CA 125 Routine 08/13/2023 12:08 EDT 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) Weight loss Nausea COMPLETE BLOOD COUNT AND DIFFERENTIAL Routine 08/13/2023 12:08 EDT 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) Weight loss Nausea TSH Routine 08/13/2023 12:08 EDT 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 [id number] Narrative 09/16/2023 11:[address] EYE TO THIGH 09/16/2023 7:30 AM Signs and Symptoms: ??weight loss. Lymphoma Hx; Weight loss, unintended; weight loss. Lymphoma Hx;C85.91: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);R63.4:Weight loss;R11.0:Nausea Comparison: CT abdomen pelvis June 08, 2023, CT chest May 27, 2022 Technique: Approximately 90 minutes following the IV injection of 7.5 mCi of [id number], PET/CT imaging was obtained from the skull [...] of lymph nodes of head and neckregion (HCC-CMS);R63.4:Weight loss;R11.0:Nausea Comparison: CT abdomen pelvis June 08, 2023, CT chest May 27, 2022 Technique: Approximately 90 minutes following the IV injection of 7.5 mCi [id number], PET/CT imaging was obtained from the skull [...] the above interpretation andagree with the findings. [id number] Jackelyn Miramontes MD [facility]LES * T4 FREE (08/13/2023 12:08 EDT) Pathologist [facility] T4, Free 1.2 0.8 - 2.2 ng/dL 08/14/2023 10:52 EDT [facility] Blood VENOUS BLOOD / Unknown Venipuncture / Unknown 08/13/2023 12:08 EDT 08/13/2023 12:08 EDT Jackelyn Miramontes MD CHEMISTRY & BLOOD GA S ORDERABLES [facility] [address] [place] [address] * CA 125 (08/13/2023 12:08 EDT) Pathologist [facility] CA 125 <3 <30 U/mL 08/14/2023 15:11 EDT [facility] Comment: NOTE: Serum CA 125 concentration should not be interpreted as absolute evidence for the presence or absence of malignant disease. Assayed on Siemens ADVIA Centaur XPT using chemiluminescent technology. ??Values obtained by using different assay methods cannot be used interchangeably. Blood VENOUS BLOOD / Unknown Venipuncture / Unknown 08/13/2023 12:08 EDT 08/14/2023 8:40 EDT Jackelyn Miramontes MD CHEMISTRY & BLOOD GA S ORDERABLES [facility] [address] [place] [address] * LDH (08/13/2023 12:08 EDT) LDH 176 120 - 246 U/L 08/13/2023 18:12 EDT [facility] Blood VENOUS BLOOD / Unknown Venipuncture / Unknown 08/13/2023 12:08 EDT 08/13/2023 12:08 EDT Jackelyn Miramontes MD CHEMISTRY & BLOOD GA S ORDERABLES Performing Organization Address City/[facility]/ZIP Co de Phone Number [facility] [address] [place] [id number] * AMYLASE (08/13/2023 12:08 EDT) Pathologist [facility] Amylase 56 30 - 110 U/L 08/13/2023 18:12 EDT [facility] Blood VENOUS BLOOD / Unknown Venipuncture / Unknown 08/13/2023 12:08 EDT 08/13/2023 12:08 EDT Jackelyn Miramontes MD CHEMISTRY & BLOOD GA S ORDERABLES Performing Organization Address City/[facility]/ZIP Co de Phone Number [facility] [address] [place] [address] * LIPASE (08/13/2023 12:08 EDT) Pathologist [facility] Lipase 86 <251 U/L 08/13/2023 18:12 EDT [facility] Blood VENOUS BLOOD / Unknown Venipuncture / Unknown 08/13/2023 12:08 EDT 08/13/2023 12:08 EDT Jackelyn Miramontes MD CHEMISTRY & BLOOD GA S ORDERABLES [facility] [address] [place] [address] * LYME AB SCREEN, IGG AND IGM (08/13/2023 12:08 EDT) Pathologist [facility] Lyme Antibody, IgG Negative Negative 08/14/2023 9:58 EDT [facility] Lyme Antibody, IgM Negative Negative 08/14/2023 9:58 EDT [facility] Blood VENOUS BLOOD / Unknown Venipuncture / Unknown 08/13/2023 12:08 EDT 08/13/2023 12:08 EDT Jackelyn Miramontes MD IMMUNOLOGY AND SEROL OGY ORDERABLES Performing Organization Address [facility] Co de Phone Number [facility] [address] [place] [address] * (ABNORMAL) TSH (08/13/2023 12:08 EDT) [facility] [address] TSH 0.46(L) 0.47 - 4.68 mIU/L 08/13/2023 18:48 EDT [facility] Blood VENOUS BLOOD / Unknown Venipuncture / Unknown 08/13/2023 12:08 EDT 08/13/2023 12:08 EDT Narrative [facility] - 08/13/2023 18:48 EDT The results of this assay can be falsely lowered due to the consumption of Biotin. Jackelyn Miramontes MD CHEMISTRY & BLOOD GA S ORDERABLES Performing Organization Address [facility] de Phone Number [facility] [address] [place] [address] * COMPLETE BLOOD COUNT AND DIFFERENTIAL (08/13/2023 12:08 EDT) [facility] [address] WBC 5.46 4.00 - 12.40 K/cmm 08/13/2023 17:57 EDT [facility] RBC 4.45 3.86 - 5.04 M/cmm 08/13/2023 17:57 EDT [facility] Hemoglobin 13.1 11.6 - 15.2 g/dL 08/13/2023 17:57 EDT [facility] HCT 40.5 34.9 - 44.4 % 08/13/2023 17:57 EDT [facility] MCV 91 81 - 98 fL 08/13/2023 17:57 [facility] MCH 29.4 26.7 - 33.3 pg 08/13/2023 17:57 [facility] MCHC 32.3 32.1 - 35.9 g/dL 08/13/2023 17:57 [facility] RDW-CV 12.4 <14.7 % 08/13/2023 17:57 [facility] RDW-SD 40.7 <50.4 fl 08/13/2023 17:57 [facility] PLT 246 141 - 377 K/cmm 08/13/2023 17:57 [facility] MPV 9.9 9.5 - 12.7 fL 08/13/2023 17:57 [facility] % Neutrophils 65.0 % 08/13/2023 17:57 [facility] % Lymphocytes 25.3 % 08/13/2023 17:57 [facility] % Monocytes 6.6 % 08/13/2023 17:57 [facility] % Eosinophils 2.0 % 08/13/2023 17:57 [facility] % Basophils 0.9 % 08/13/2023 17:57 [facility] % Immature Grans 0.2 % 08/13/20 17:57 [facility] Absolute Neutrophils 3.55 2.20 - 8.85 K/cmm 08/13/2023 17:57 [facility] Absolute Lymphocytes 1.38 1.09 - 3.30 K/cmm 08/13/2023 17:57 [facility] Absolute Monocytes 0.36 0.10 - 0.80 K/cmm 08/13/2023 17:57 [facility] Absolute Eosinophils 0.11 0.03 - 0.61 K/cmm 08/13/2023 17:57 [facility] ABS Basophils 0.05 0.01 - 0.11 K/cmm 08/13/2023 17:57 [facility] Absolute Immature Grans 0.01 0.00 - 0.06 K/cmm 08/13/2023 17:57 EDT [facility] Type of Differential: Auto 08/13/2023 17:57 EDT [facility] Blood VENOUS BLOOD / Unknown Venipuncture / Unknown 08/13/2023 12:08 EDT 08/13/2023 12:08 EDT Jackelyn Miramontes MD PACKAGES & DNA PROBE ORDERABLES [facility] [address] [place] [address] documented in this encounter Visit Diagnoses Diagnosis 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)- Primary Weight loss Loss of weight Nausea Nausea alone Encounter for immunization Need for other specified prophylactic vaccination against single bacterial disease 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
--- OUTSIDE RECORDS SUMMARY | 2024-08-07 13:36 | XMS_ITS | Encounter Summary ---
Author Organization [facility] Address [address] [place] [address] Care Team Providers Care Fire Patrol Name Role Phone Clint Miramontes MD Primary Care Provider [phone] Reason for Visit * Reason Comments Follow-up Surveillance for h/o lymphoma Encounter Details Date Type Department Care Team (Late st Contact Info) Description 06/08/2023 10:30 EDT Office Visit [facility] Adult Hematology & Oncology [address] [place] [phone] Luz Maria Peter NP [address] [place] [address] [address] [place] [address] 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) (Primary Dx); History of lymphoma; Elevated pancreatic enzyme Social History Tobacco Use Types Packs/Day Years [...] Sign Reading Time Taken Comments Blood Pressure 110/68 06/08/2023 1025 EDT Pulse 74 06/08/2023 1025 EDT Temperature - - Respiratory Rate - - Oxygen Saturation 98% 06/08/2023 1025 EDT Inhaled Oxygen Concentration - - Weight 44.5 kg (98 lb) 06/08/2023 1025 EDT Height - - Body Mass Index 20.13 08/18/2022 0938 EDT documented in this encounter [...] Notes * Luz Maria Peter NP - 06/08/2023 1030 EDT CC: Chief Complaint Patient presents with ??? Follow-up Surveillance for h/o lymphoma Hematology/Oncology Problem List: ?? Diagnosis ??? 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) ? 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 Clinical stage IIIa disease with numerous small lymph nodes above and below the diaphragm. No treatmentat this time. Subjective: Ms. Ramirez is here for unintentional weight loss and discussion of abnormal labs in the setting of marginal zone lymphoma. Has lost 4 lbs since 08/2022. She has discomfort affecting her left neck and shoulder. Currently working with PT. She admits she has a high level of anxiety. Reading abnormaltest results contributes to even higher level of anxiety. Often vomits when she is physically exerting herself. This occurred at a recent nuclear stress test. ] Review of Systems: All 10 systems have [...] medications for this visit. Objective: VS: BP 110/68 Pulse 74 Wt (!) 44.5 kg (98 lb) SpO2 98% BMI 20.13 kg/m?? Social History Socioeconomic History ??? Marital status: Single Tobacco Use ??? Smoking status: Former Packs/day: 1 Types: Cigarettes Start date: 1963 Quit date: 07/03/1982 Years since quittin.9 ??? Smokeless tobacco: Never ??? Tobacco comments: 1981 quit Vaping Use ??? Vaping Use: Former ??? Substances: THC ??? Devices: Pre-filled or refillable cartridge Substance and Sexual Activity ??? Alcohol use: No ??? Drug use: Yes Frequency: 5.0 times per week Types: Marijuana Comment: smokes and does edibles Physical Exam: General appearance: Pleasant adult female in [facility]. Skin: Skin color, temperature, turgor normal. No rashes or lesions. HENT: Sclera anicteric. No facial pallor. Lungs: clear to auscultation bilaterally, good inspiratory effort Heart: RRR. Abdomen: soft, non-tender; bowel sounds normal; no masses, no organomegaly. Extremities: No LE edema. Lymph nodes: No palpable cervical, supraclavicular, axillary or inguinal adenopathy. Neuro: Alert and oriented x 3. Normal affect. Normal gait. Performance Status:0 Data Review: Labs: Results for orders placed or performed in visit on 06/08/23 COMPLETE BLOOD COUNT AND DIFFERENTIAL Result Value Ref Range WBC 5.61 4.00 - 12.40 K/cmm RBC 4.70 3.86 - 5.04 M/cmm Hemoglobin 14.1 11.6 - 15.2 g/dL HCT 42.3 >=21.0 % MCV 90 81 - 98 fL MCH 30.0 26.7 - 33.3 pg MCHC 33.3 32.1 - 35.9 g/dL RDW-CV 13.0 <14.7 % RDW-SD 42.3 <50.4 fl PLT 226 141 - 377 K/cmm MPV 8.8 (L) 9.5 - 12.7 fL % Neutrophils 60.2 % % Lymphocytes 28.0 % % Monocytes 8.6 % % Eosinophils 2.7 % % Basophils 0.5 % % Immature Grans Absolute Neutrophils 3.38 2.20 - 8.85 K/cmm Absolute Lymphocytes 1.57 1.09 - 3.30 K/cmm Absolute Monocytes 0.48 0.10 - 0.80 K/cmm Absolute Eosinophils 0.15 0.03 - 0.61 K/cmm ABS Basophils 0.03 0.01 - 0.11 K/cmm Absolute Immature Grans Type of Differential: Auto COMPREHENSIVE METABOLIC PANEL (CMP) Result Value Ref Range Sodium 136 136 - 145 mmol/L Potassium 4.3 3.5 - 5.0 mmol/L Chloride 98 96 - 110 mmol/L CO2 Total 27 22 - 32 mmol/L Glucose 98 70 - 99 mg/dl BUN 15 10 - 26 mg/dL Creatinine 0.58 0.52 - 1.04 mg/dL eGFR 95 >60 mL/min/1.73m2 Total Protein 7.3 6.3 - 8.2 g/dL Albumin 4.6 3.4 - 4.9 g/dL Alkaline Phosphatase 57 38 - 126 U/L AST 31 15 - 46 U/L ALT 20 <35 U/L Bilirubin, Total 1.0 <1.4 mg/dL Calcium 9.7 8.5 - 10.5 mg/dL Albumin/Globulin Ratio 1.7 1.0 - 2.5 g/dL Anion Gap 11 5 - 14 mmol/L LDH Result Value Ref Range LDH 217 120 - 246 U/L AMYLASE Result Value Ref Range Amylase 67 30 - 110 U/L Assessment/Plan: Ms. Ramirez is a 72 yo female with marginal zone lymphoma on surveillance. CT scans from 05/27/22 reviewed with showed no evidence of pathologically enlarged nodes. Noted is a 2.8 cm adenexal cystic lesion unchanged from 07/2022. Continue to monitor. Reviewed labs. YASIR of progressive disease on PE today. Weight loss: May be secondary to anxiety. Will refer to nutrition to consult regarding tips on healthy diet. Will return to clinic in 3 months. Cc: Clint Miramontes MD 30 minutes in face to face contact with 25 minutes counseling side effect, treatment management andcoordination of care. Luz Maria Peter ANP/APPLICATION PROGRAMMER ANALYST [facility] * Ailyn Jenkins, RN - 06/08/2023 1030 EDT Suspicion of Abuse: no - If yes, please document evidence: - Assessed on: 06/08/23 10:34 - Assessed by: AILYN JENKINS RN Procedures: - Venipuncture Performed by: AILYN JENKINS RN Site Collected: Left Antecubital Space Volume Withdrawn: LAV EDTA 3.0 mL and Lander SST 8.5 mL Patient Response:Patient tolerated venipuncture well and 23G Butterfly used Number of attempts: Collected on: 06/08/23 10:34 Supervising Provider: Jessica Peter NP documented in this encounter Plan of Treatment Upcoming Encounters Date Type Department Care Team (Late st Contact Info) Description 08/10/2024 16:00 EDT Appointment [facility] MRI [address] [place], [place] [id number] 08/16/2024 14:00 EDT EMILIA [facility] OBGYN Ultrasound [address] [place] [address] 08/29/2024 14:00 EDT Office Visit [facility] OBGYN [address] [place], [place] [phone] Ness Vilchis MD [address] [facility] [address] [place] [phone] 08/31/2024 16:00 EDT Office Visit [facility] Orthopedics & Sport Medicine [address], [address] [place], [place] [phone] Reema Peoples PA-C [address] [facility] [address] [place], [place] [phone] 09/01/2024 9:30 EDT Office Visit [facility] Rheumatology [address] [place] [address] Lin Grider MD [address] [facility] [address] [place] [address] 11/08/2024 14:00 EST Office Visit [facility] Adult Hematology & Oncology [facility] [place] [address] Luz Maria Peter, GABRIEL [address] [facility], [facility] [address] [place] [address] 11/22/2024 10:15 EST Office Visit [facility] Family Medicine - [place] [address] [place] [phone] Clint Miramontes MD [address] [place] [phone] documented as of this encounter Procedures Procedure Name Priority Date/Time Associated Diagnosis Comments AMYLASE Routine 06/08/2023 11:20 EDT Elevated pancreatic enzyme COMPLETE BLOOD COUNT AND DIFFERENTIAL Routine 06/08/2023 10:32 EDT History of lymphoma LDH Routine 06/08/2023 10:32 EDT History of lymphoma COMPREHENSIVE METABOLIC PANEL (CMP) Routine 06/08/2023 10:32 EDT History of lymphoma documented in this encounter Results * AMYLASE (06/08/2023 11:20 EDT) Amylase 67 30 - 110 U/L 06/08/2023 12:44 EDT [facility] Blood VENOUS BLOOD / Unknown Venipuncture / Unknown 06/08/2023 11:20 EDT 06/08/2023 11:20 EDT Clint Miramontes MD CHEMISTRY & BLOOD GA S ORDERABLES [facility] [address] [place] [address] * LDH (06/08/2023 10:32 EDT) LDH 217 120 - 246 U/L 06/08/2023 12:46 [facility] Blood VENOUS BLOOD / Unknown Venipuncture / Unknown 06/08/2023 10:32 EDT 06/08/2023 10:32 EDT Luz Maria Peter NP CHEMISTRY & BLOOD GAS ORDERABLES Performing Organization Address City/[facility]/ZIP Co de Phone Number [facility] [address] [place] [address] * COMPREHENSIVE METABOLIC PANEL (CMP) (06/08/2023 10:32 EDT) Pathologist [facility] Sodium 136 136 - 145 mmol/L 06/08/2023 12:47 [facility] Potassium 4.3 3.5 - 5.0 mmol/L 06/08/2023 12:47 [facility] Chloride 98 96 - 110 mmol/L 06/08/2023 12:47 [facility] CO2 Total 27 22 - 32 mmol/L 06/08/2023 12:47 [facility] Glucose 98 70 - 99 mg/dl 06/08/2023 12:47 [facility] BUN 15 10 - 26 mg/dL 06/08/2023 12:47 [facility] Creatinine 0.58 0.52 - 1.04 mg/dL 06/08/2023 12:47 [facility] eGFR 95 >60 mL/min/1.7 3m2 06/08/2023 12:47 [facility] Total Protein 7.3 6.3 - 8.2 g/dL 06/08/2023 12:47 [facility] Albumin 4.6 3.4 - 4.9 g/dL 06/08/2023 12:47 EDT [facility] Alkaline Phosphatase 57 38 - 126 U/L 06/08/2023 12:47 EDT [facility] AST 31 15 - 46 U/L 06/08/2023 12:47 EDT [facility] ALT 20 <35 U/L 06/08/2023 12:47 EDT [facility] Bilirubin, Total 1.0 <1.4 mg/dL 06/08/20 12:47 EDT [facility] Calcium 9.7 8.5 - 10.5 mg/dL 06/08/2023 12:47 T [facility] Albumin/Globulin Ratio 1.7 1.0 - 2.5 g/dL 06/08/2023 12:47 EDT [facility] Anion Gap 11 5 - 14 mmol/L 06/08/2023 12:47 T [facility] Blood VENOUS BLOOD / Unknown Venipuncture / Unknown 06/08/2023 10:32 EDT 06/08/2023 10:32 EDT Luz Maria Peter NP CHEMISTRY & BLOOD GAS ORDERABLES Performing Organization Address City/State/[facility] Co de Phone Number [facility] [address] [place] [address] * (ABNORMAL) COMPLETE BLOOD COUNT AND DIFFERENTIAL (06/08/2023 10:32 EDT) WBC 5.61 4.00 - 12.40 K/cmm 06/08/2023 11:12 EDT [facility] RBC 4.70 3.86 - 5.04 M/cmm 06/08/2023 11:12 EDT [facility] Hemoglobin 14.1 11.6 - 15.2 g/dL 06/08/2023 11:12 EDT [facility] HCT 42.3 >=21.0 % 06/08/2023 11:12 EDT [facility] MCV 90 81 - 98 fL 06/08/2023 11:12 EDT [facility] MCH 30.0 26.7 - 33.3 pg 06/08/2023 11:12 EDT [facility] MCHC 33.3 32.1 - 35.9 g/dL 06/08/2023 11:12 EDT [facility] RDW-CV 13.0 <14.7 % 06/08/2023 11:12 EDT [facility] RDW-SD 42.3 <50.4 fl 06/08/2023 11:12 EDT [facility] PLT 226 141 - 377 K/cmm 06/08/2023 11:12 EDT [facility] MPV 8.8(L) 9.5 - 12.7 fL 06/08/2023 11:12 EDT [facility] % Neutrophils 60.2 % 06/08/2023 11:12 EDT [facility] % Lymphocytes 28.0 % 06/08/2023 11:12 EDT [facility] % Monocytes 8.6 % 06/08/2023 11:12 EDT [facility] % Eosinophils 2.7 % 06/08/2023 11:12 EDT [facility] % Basophils 0.5 % 06/08/2023 11:12 T [facility] % Immature Grans 06/08/20 11:12 T [facility] Absolute Neutrophils 3.38 2.20 - 8.85 K/cmm 06/08/2023 11:12 T [facility] Absolute Lymphocytes 1.57 1.09 - 3.30 K/cmm 06/08/2023 11:12 EDT [facility] Absolute Monocytes 0.48 0.10 - 0.80 K/cmm 06/08/2023 11:12 EDT [facility] Absolute Eosinophils 0.15 0.03 - 0.61 K/cmm 06/08/2023 11:12 EDT [facility] ABS Basophils 0.03 0.01 - 0.11 K/cmm 06/08/2023 11:12 T [facility] Absolute Immature Grans 06/08/2023 11:12 T [facility] Type of Differential: Auto 06/08/2023 11:12 EDT [facility] Blood VENOUS BLOOD / Unknown Venipuncture / Unknown 06/08/2023 10:32 EDT 06/08/2023 10:32 EDT Luz Maria Peter CHIEF WRITER PACKAGES & DNA PRO BE ORDERABLES [facility] Medical Office Building [address], [address] [place] [address] documented in this encounter Visit Diagnoses Diagnosis 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)- Primary History of lymphoma Personal history of other lymphatic and hematopoietic neoplasm Elevated pancreatic enzyme Other nonspecific abnormal serum enzyme levels documented in this encounter Care Teams Fire Patrol Relationship Specialty Start Date End Date Clint Miramontes MD [address] [place] [phone] PCP - General 08/23/19 documented as of this encounter
--- OUTSIDE RECORDS SUMMARY | 2024-08-07 13:36 | XMS_ITS | Encounter Summary ---
Author Organization [facility] Address [address] [place] [address] Care Team Providers Care Christmas Tree Farm Worker Name Role Phone Clint Miramontes MD Primary Care Provider [phone] Encounter Details Date Type Department Care Team (Late st Contact Info) Description 04/03/2023 Orders Only [facility] [address] [place] [id number] [place] Costa Social History Tobacco Use Types [...] Description 08/10/2024 16:00 EDT Appointment [facility] MRI [address] [place], [place] [id number] 08/16/2024 14:00 EDT EMILIA [facility] OBGYN Ultrasound [address] [place], [place] [id number] 08/29/2024 14:00 EDT Office Visit [facility] OBGYN [address] [place] [phone] Ness Vilchis MD [address] [place] [address], [address] [place] [address] 08/31/2024 16:00 EDT Office Visit [facility] Orthopedics & Sport Medicine [address], [address] [place], [place] [phone] Reema Peoples, PA-C [address] [facility] [address] [place], [place] [phone] 09/01/2024 9:30 EDT Office Visit [facility] Rheumatology [address] [place] [phone] Lin Grider MD [address] [place] [address] [address] [place] [address] 11/08/2024 14:00 EST Office Visit [facility] Adult Hematology & Oncology [address] [place] [address] Luz Maria Peter, GABRIEL [address] [place] [address] [address] [place] [address] 11/22/2024 10:15 EST Office Visit [facility] Family Medicine - [place] [address] [place] [address] Clint Miramontes MD [address] [place] [phone] documented as of this encounter Visit Diagnoses Not on filedocumented in this encounter Care Teams Christmas Tree Farm Worker Relationship Specialty Start Date End Date Clint Miramontes MD [address] [place] [phone] PCP - General 08/23/19 documented as of this encounter
--- OUTSIDE RECORDS SUMMARY | 2024-08-07 13:36 | XMS_ITS | Encounter Summary ---
Author Organization [facility] Address [address] [place] [address] Care Team Providers Care Pipe Line Maintenance Supervisor Name Role Phone lCint Miramontes MD Primary Care Provider [phone] Encounter Details Date Type Department Care Team (Late st Contact Info) Description 08/10/2023 Orders Only [facility] [address] [place], [place] [phone] Lin Grider MD [address] [facility] [address] [place] [address] Social History Tobacco Use Types [...] 16:00 EDT Appointment [facility] MRI [address] [place], [place] [id number] 08/16/2024 14:00 EDT EMILIA [facility] OBGYN Ultrasound [address] [place] [address] 08/29/2024 14:00 EDT Office Visit [facility] OBGYN [address] [place] [address] [phone] Ness Vilchis MD [address] [place] [address], [address] [place] [phone] 08/31/2024 16:00 EDT Office Visit [facility] Orthopedics & Sport Medicine [address], [address] [place], [place] [phone] Reema Peoples, PA-C [address] [facility] [address] [place], [place] [phone] 09/01/2024 9:30 EDT Office Visit [facility] Rheumatology [address] [place] [phone] Lin Grider MD [address] [place] [address] [address] [place] [phone] 11/08/2024 14:00 EST Office Visit [facility] Adult Hematology & Oncology [address] [place] [address], [place] [phone] Luz Maria Peter, GABRIEL [address] [place] [address], [facility] [address] [place] [address] 11/22/2024 10:15 EST Office Visit [facility] Family Medicine - [place] [address] [place] [address] Clint Miramontes MD [address] [place] [phone] documented as of this encounter Visit Diagnoses Not on filedocumented in this encounter Care Teams Pipe Line Maintenance Supervisor Relationship Specialty Start Date End Date Clint Miramontes MD [address] [place] [phone] PCP - General 08/23/19 documented as of this encounter
--- OUTSIDE RECORDS SUMMARY | 2024-08-07 13:36 | XMS_ITS | Encounter Summary ---
Author Organization [facility] Address [address] [place] [address] Care Team Providers Care Supervisor Fusing Room Name Role Phone Jackelyn Miramontes MD Primary Care Provider [phone] Reason for Referral * Radiology Services (STAT) - Authorization Not Required Specialty Diagnoses / Procedures Referred By Contac t Referred To Contact Diagnoses Nausea Elevated pancreatic enzyme Procedures CT ABDOMEN PELVIS W CONTRAST Jackelyn Miramontes MD [address] [place] [address] [facility] [place] Referral ID Status Reason Start Date Expiration Date Visits Requested Visits Authorized [id number] Authorization Not Required 06/04/2023 1 1 * Referral (Urgent) - Authorized Specialty Diagnoses / Procedures Referred By Contact Referred To Contact Gastroenterology and Hepatology Diagnoses Nausea 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) Procedures UPPER ENDOSCOPY (EGD) Jackelyn Miramontes MD [address] [place] [address] [facility] [address] [place] [address] Referral ID Status Reason Start Date Expiration Date V isits Requested Visits Authorized [id number] Authorized 1 1 * Radiology Services (Routine/Next Available) - Authorization Not Required Specialty Diagnoses / Procedures Referred By Contac t Referred To Contact Diagnoses Nausea 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) Procedures XR CHEST 2 VIEWS Jackelyn Miramontes MD [address] [place] [phone] [facility] [place] Referral ID Status Reason Start Date Expiration Date Visits Requested Visits Authorized [id number] Authorization Not Required 06/02/2023 1 1 Reason for Visit * Reason Comments Other Stress test result D iscussion Weight Loss Encounter Details Date Type Department Care Team (Late st Contact Info) Description 06/02/2023 13:30 EDT Office Visit [facility] Family Medicine - [address] [address] Jackelyn Miramontes MD [address] [place] [phone] Nausea (Primary Dx); Weight loss; 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); Impaired glucose tolerance; Mixed hyperlipidemia; Vitamin D deficiency; Elevated pancreatic enzyme Social History Tobacco Use [...] Sign Reading Time Taken Comments Blood Pressure 115/80 06/02/2023 1333 EDT Pulse 87 06/02/2023 1333 EDT Temperature 36.7 ??C (98 ??F) 06/02/2023 1333 EDT Respiratory Rate 18 06/02/2023 1333 EDT Oxygen Saturation 97% 06/02/2023 1333 EDT Inhaled Oxygen Concentration - - Weight 44.9 kg (98 lb 14.4 oz) 06/02/2023 1333 E DT Height - - Body Mass Index 20.32 08/18/2022 0938 EDT documented in this encounter [...] as of this encounter Progress Notes * Jackelyn Miramontes MD - 06/02/2023 1330 EDT Subjective: Patient ID: Mel Ramirez is an 73 y.o. female. Nausea HPI Mel visits to follow up for nausea with exertion. She often gets nauseous and vomits after mowing lawn or shoveling snow. No chest pains. She is short of breath on occasion. She does have a history of COPD; she also smoked MJ frequently. She has had a 5 lb weight loss, unexplained since last visit. No chronic cough. No change in bowel function. I sent her for EST 02/22: There was normal perfusion and function and normal contraction. Negative for inducible ischemia after pharmacological stress. EKG Patient Active Problem List Diagnosis ??? Cerebral [...] (HCC-CMS) (HCC) ??? 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 Cancer (HCC-CMS) (HCC) [...] BEDTIME NEEDED FOR ANXIETY (Patient taking differently: Patient taking differently taking nightly) 30 Tablet 3 ??? lovastatin (MEVACOR) 40 mg tablet TAKE TWO TABLETS BY MOUTH EVERY DAY 180 Tablet 3 No current facility-administered medications on file prior to visit. Allergies Allergen Reactions ??? Crestor [Rosuvastatin] Rash ??? Other - See Comments Wasp stings- swollen local reactions ??? Pravastatin Rash Social Social History Tobacco [...] edibles ROS - See HPI Objective: BP 115/80 Pulse 87 Temp 36.7 ??C (98 ??F) (Oral) Resp 18 Wt (!) 44.9 kg (98 lb 14.4 oz) SpO2 97% BMI 20.32 kg/m?? Wt Readings from Last 3 Encounters: 06/02/23 (!) 44.9 kg (98 lb 14.4 oz) 04/03/23 46.7 kg (103 lb) 03/09/23 46.7 kg (103 lb) BP Readings from Last 3 Encounters: 06/02/23 115/80 04/21/23 123/83 04/03/23 120/70 Physical Exam Gen: Alert and oriented. No distress Cardiovascular: Normal rate, regular rhythm and normal heart sounds. No murmurs. Pulmonary/Chest: Effort normal and breath sounds normal. Psychiatric: normal mood and affect. Assessment: Exertional nausea - EST normal. Weight loss 5 lbs since last visit. Labs today CBC/CMP/TSH/Spep/Upep/lipase. Follow up with Oncology. CXR this week. EGD given ongoing nausea. She is agreeable with plan. I spent a total of 31 minutes on the date of this encounter meeting with the patient and reviewing documentation/coordinating care as described in the above note. Plan: Mel was seen today for other and weight loss. 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 * Luz Maria Hdz, RN - 06/02/2023 1330 EDT 2 sst and 1 lav drawn from rac in 1 attempt. bandaid applied, pt tolerated well. documented in this encounter Miscellaneous Notes * Addendum Note - Jackelyn Miramontes MD - 06/02/2023 [id number] EDTAddended by: JACKELYN MIRAMONTES on: 06/04/2023 13:52 Modules accepted: Orders documented in this encounter Plan of Treatment Upcoming Encounters Date Type Department Care Team (Late st Contact Info) Description 08/10/2024 16:00 EDT Appointment [facility] MRI [address] [place] [address] 08/16/2024 14:00 EDT EMILIA [facility] OBGYN Ultrasound [address] [place] [phone] 08/29/2024 14:00 EDT Office Visit [facility] OBGYN [address] [place] [phone] Ness Vilchis MD [address] [place] [address], [address] [place] [address] 08/31/2024 16:00 EDT Office Visit [facility] Orthopedics & Sport Medicine [address] [place] [address] Reema Peoples PA-C [address] [facility] [address] [place], [place] [phone] 09/01/2024 9:30 EDT Office Visit [facility] Rheumatology [address], [place] [phone] Lin Grider MD [address] [facility] [address] [place] [address] 11/08/2024 14:00 EST Office Visit [facility] Adult Hematology & Oncology [address] [place] [address] Luz Maria Peter NP [address] [facility], [facility] [address] [place] [address] 11/22/2024 10:15 EST Office Visit [facility] Family Medicine - [place] [address] [place] [phone] Jackelyn Miramontes MD [address] [place] [phone] Pending Results Name Type Priority Associated Diagnoses Date /Time UPPER ENDOSCOPY (EGD) GI STAT Nausea 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) 06/25/2023 9:30 EDT Scheduled Orders Name Type Priority Associated Diagnoses Orde r Schedule UPPER ENDOSCOPY (EGD) GI STAT Nausea 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) Expected: 06/03/2023 (Approximate), Expires: 12/03/2024 documented as of this encounter Procedures Procedure Name Priority Date/Time Associated Diagnosis Comments URINE MONOCLONAL PROTEIN STUDY (UPEP WITH IMMUNOTYPING) PERFORMABLE Routine 06/02/2023 14:25 EDT Nausea 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) SPEP, INCLUDES QUANTITATION OF MONOCLONAL SPIKE PERFORMABLE Routine 06/02/2023 14:25 EDT Nausea 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) PROTEIN, TOTAL, RANDOM, URINE Routine 06/02/2023 14:25 EDT Nausea 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) COMPLETE BLOOD COUNT AND DIFFERENTIAL Routine 06/02/2023 14:25 EDT Nausea Weight loss URINE MONOCLONAL PROTEIN STUDY (UPEP WITH IMMUNOTYPING) Routine 06/02/2023 14:25 EDT Nausea 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) TSH Routine 06/02/2023 14:25 EDT Nausea 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) SPEP, INCLUDES QUANTITATION OF MONOCLONAL SPIKE Routine 06/02/2023 14:25 EDT Nausea 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) LIPASE Routine 06/02/2023 14:25 EDT Nausea 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) LDH Routine 06/02/2023 14:25 EDT 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 6. ??Additional nonemergent findings detailed above. [id number] Narrative 06/08/2023 10:[address] ABDOMEN PELVIS [...] mm hypodense pancreatic tail lesion, stable compared [id number] (axial series 201 image 32). Main pancreatic [...] lesion, essentially unchanged from the prior ultrasound ofSe2021, although enlarged from 2.2 cm on the [...] hypodense pancreatic tail lesion, stable compared to 2012,therefore likely benign. 3. Calcified fibroids. 4. BILOCULAR 2.8 CM LEFT ADNEXAL CYSTIC LESION, similar to the priorultrasound of July 2022, although enlarged compared to older studies.O-RADS category 2: Almost certainly benign. Per ACR guidelines,surveillance ultrasound is recommended in 12 months. 5. Chronic mild right hydronephrosis and proximal hydroureter ofuncertain etiology, similar to 2012. Clinical correlation required. 6. Additional nonemergent findings detailed above. [id number] Jackelyn Miramontes MD IMG CT ORDERABLES * XR CHEST 2 VIEWS (06/08/2023 9:26 EDT) Anatomical Region Laterality Modality Computed Radiogr aphy 06/08/2023 9:34 EDT Impressions 06/08/2023 9:34 EDT No acute findings. No lymphadenopathy evident. 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 Technique: Frontal and lateral views of the chest. Findings: Lungs: Clear. Pleura/diaphragms: Unremarkable. Cardiac and mediastinal contours: Unremarkable. No lymphadenopathy evident. Soft tissues and extrathoracic findings: ??Normal. Bones: Mild degenerative spondylosis. 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 Technique: Frontal and lateral views of the chest. Findings: Lungs: Clear. Pleura/diaphragms: Unremarkable. Cardiac and mediastinal contours: Unremarkable. No lymphadenopathyevident. Soft tissues and extrathoracic findings: Normal. Bones: Mild degenerative spondylosis. IMPRESSION No acute findings. No lymphadenopathy evident. [id number] Jackelyn Miramontes MD G DIAGNOSTIC IMAGI NG ORDERABLES * (ABNORMAL) URINE MONOCLONAL PROTEIN STUDY (UPEP WITH IMMUNOTYPING) PERFORMABLE (06/02/2023 14:25 EDT) Albumin, Urine % 12.9 N/A % 06/03/20 23 15:04 [facility] Albumin, Urine mg/dL 16 mg/dL 06/03/2023 15:04 [facility] Globulins, Urine % 87.1 N/A % 06/03/2023 15:04 [facility] Globulins, Urine mg/dL 111 mg/dL 06/03/2023 15:04 [facility] UPEP Comment See Comment 06/03/2023 15:04 [facility] Comment:Electrophoresis scre ening performed; Immunotyping to follow. ??See scanned/supplementary report. Immunotyping, Urine Current Interpretatio n: Negative for free monoclonal light chains. Reviewed by: Riaz Mcnamara MD, PhD 06/03/2023 14:09. 06/03/2023 15:04 EDT [facility] Total Protein, Urine 127(H) See Note mg/dL 06/03/2023 15:04 EDT [facility] Comment: NOTE: Reference range has not been established for total protein concentration in random urine specimens. Urine URINE / Unknown Urine Collect / Unknown 06/02/2023 14:25 EDT 06/02/2023 14:25 EDT Jackelyn Miramontes MD URINALYSIS ORDERABLE S Performing Organization Address [facility] Co de Phone Number [facility] [address] [place] [address] * PROTEIN, TOTAL, RANDOM, URINE (06/02/2023 14:25 EDT) Urine URINE / Unknown Urine Collect / Unknown 06/02/2023 14:25 EDT 06/02/2023 14:25 EDT Jackelyn Miramontes MD URINALYSIS ORDERABLE S Performing Organization Address [facility] de Phone Number [facility] [address] [place] [address] * (ABNORMAL) SPEP, INCLUDES QUANTITATION OF MONOCLONAL SPIKE PERFORMABLE (06/02/2023 14:25 EDT) Albumin % 64.5 55.8 - 66.1 % 06/03/2023 12:16 [facility] Albumin g/dL 4.8 3.6 - 5.2 g/dL 06/03/2023 12:16 [facility] Alpha-1 % 4.3 2.9 - 4.9 % 06/03/2023 12:16 [facility] Alpha-1 g/dL 0.30 0.15 - 0.40 g/dL 06/03/2023 12:16 [facility] Alpha-2 % 10.0 7.1 - 11.8 % 06/03/2023 12:16 [facility] Alpha-2 g/dL 0.70 0.50 - 1.00 g/dL 06/03/2023 12:16 [facility] Beta % 10.9 8.4 - 13.1 % 06/03/2023 12:16 [facility] Beta g/dL 0.80 0.60 - 1.20 g/dL 06/03/2023 12:16 [facility] Gamma % 10.3(L) 11.1 - 18.8 % 06/03/2023 12:16 [facility] Gamma g/dL 0.80 0.60 - 1.60 g/dL 06/03/2023 12:16 [facility] SPEP Comment No apparent monoclonal protein seen on serum electrophoresis 06/03/2023 12:16 [facility] Comment:See scanned/suppleme ntary report. Total Protein 7.4 6.3 - 8.2 g/dL 06/03/2023 12:16 [facility] Blood VENOUS BLOOD / Unknown Venipuncture / Unknown 06/02/2023 14:25 EDT 06/02/2023 14:25 EDT Jakcelyn Miramontes MD CHEMISTRY & BLOOD GA S ORDERABLES Performing Organization Address City/[facility]/ZIP Co de Phone Number [facility] [address] [place] [address] * TSH (06/02/2023 14:25 EDT) TSH 0.74 0.47 - 4.68 mIU/L 06/02/2023 18:27 EDT [facility] Blood VENOUS BLOOD / Unknown Venipuncture / Unknown 06/02/2023 14:25 EDT 06/02/2023 14:25 EDT Narrative [facility] - 06/02/2023 18:27 EDT The results of this assay can be falsely lowered due to the consumption of Biotin. Jackelyn Miramontes MD CHEMISTRY & BLOOD GA S ORDERABLES Performing Organization Address City/[facility]/ZIP Co de Phone Number [facility] [address] [place] [address] * (ABNORMAL) LIPASE (06/02/2023 14:25 EDT) Pathologist [facility] Lipase 356(H) <251 U/L 06/02/2023 17:51 [facility] Blood VENOUS BLOOD / Unknown Venipuncture / Unknown 06/02/2023 14:25 EDT 06/02/2023 14:25 EDT Jackelyn Miramontes MD CHEMISTRY & BLOOD GA S ORDERABLES [facility] [address] [place] [address] * COMPREHENSIVE METABOLIC PANEL (CMP) (06/02/2023 14:25 EDT) Pathologist [facility] Sodium 140 136 - 145 mmol/L 06/02/2023 17:51 [facility] Potassium 4.5 3.5 - 5.0 mmol/L 06/02/2023 17:51 [facility] Chloride 102 96 - 110 mmol/L 06/02/2023 17:51 [facility] CO2 Total 27 22 - 32 mmol/L 06/02/2023 17:51 [facility] Glucose 92 70 - 99 mg/dl 06/02/2023 17:51 [facility] BUN 17 10 - 26 mg/dL 06/02/2023 17:51 [facility] Creatinine 0.64 0.52 - 1.04 mg/dL 06/02/2023 17:51 [facility] eGFR 93 >60 mL/min/1.7 3m2 06/02/2023 17:51 [facility] Total Protein 7.4 6.3 - 8.2 g/dL 06/02/2023 17:51 [facility] Albumin 4.5 3.4 - 4.9 g/dL 06/02/2023 17:51 [facility] Alkaline Phosphatase 62 38 - 126 U/L 06/02/2023 17:51 [facility] AST 23 15 - 46 U/L 06/02/2023 17:51 [facility] ALT 18 <35 U/L 06/02/2023 17:51 [facility] Bilirubin, Total 0.5 <1.4 mg/dL 06/02/20 17:51 [facility] Calcium 10.4 8.5 - 10.5 mg/dL 06/02/2023 17:51 [facility] Albumin/Globulin Ratio 1.6 1.0 - 2.5 g/dL 06/02/2023 17:51 [facility] Anion Gap 11 5 - 14 mmol/L 06/02/2023 17:51 [facility] Blood VENOUS BLOOD / Unknown Venipuncture / Unknown 06/02/2023 14:25 EDT 06/02/2023 14:25 EDT Jackelyn Miramontes MD CHEMISTRY & BLOOD GA S ORDERABLES Performing Organization Address City/[facility] Co de Phone Number [facility] [address] [place] [address] * LDH (06/02/2023 14:25 EDT) Pathologist [facility] LDH 201 120 - 246 U/L 06/02/2023 17:51 [facility] Blood VENOUS BLOOD / Unknown Venipuncture / Unknown 06/02/2023 14:25 EDT 06/02/2023 14:25 EDT Jackelyn Miramontes MD CHEMISTRY & BLOOD GA S ORDERABLES Performing Organization Address City/[facility]/ZIP Co de Phone Number [facility] [address] [place] [address] * COMPLETE BLOOD COUNT AND DIFFERENTIAL (06/02/2023 14:25 EDT) WBC 6.47 4.00 - 12.40 K/cmm 06/02/2023 17:42 EDT [facility] RBC 4.54 3.86 - 5.04 M/cmm 06/02/2023 17:42 [facility] Hemoglobin 13.3 11.6 - 15.2 g/dL 06/02/2023 17:42 [facility] HCT 40.3 34.9 - 44.4 % 06/02/2023 17:42 [facility] MCV 89 81 - 98 fL 06/02/2023 17:42 [facility] MCH 29.3 26.7 - 33.3 pg 06/02/2023 17:42 [facility] MCHC 33.0 32.1 - 35.9 g/dL 06/02/2023 17:42 [facility] RDW-CV 12.6 <14.7 % 06/02/2023 17:42 [facility] RDW-SD 41.1 <50.4 fl 06/02/2023 17:42 [facility] PLT 247 141 - 377 K/cmm 06/02/2023 17:42 [facility] MPV 9.7 9.5 - 12.7 fL 06/02/2023 17:42 [facility] % Neutrophils 63.8 % 06/02/2023 17:42 [facility] % Lymphocytes 26.4 % 06/02/2023 17:42 [facility] % Monocytes 6.6 % 06/02/2023 17:42 [facility] % Eosinophils 1.9 % 06/02/2023 17:42 [facility] % Basophils 0.8 % 06/02/2023 17:42 [facility] % Immature Grans 0.5 % 06/02/20 17:42 [facility] Absolute Neutrophils 4.13 2.20 - 8.85 K/cmm 06/02/2023 17:42 [facility] Absolute Lymphocytes 1.71 1.09 - 3.30 K/cmm 06/02/2023 17:42 [facility] Absolute Monocytes 0.43 0.10 - 0.80 K/cmm 06/02/2023 17:42 [facility] Absolute Eosinophils 0.12 0.03 - 0.61 K/cmm 06/02/2023 17:42 EDT [facility] ABS Basophils 0.05 0.01 - 0.11 K/cmm 06/02/2023 17:42 EDT [facility] Absolute Immature Grans 0.03 0.00 - 0.06 K/cmm 06/02/2023 17:42 EDT [facility] Type of Differential: Auto 06/02/2023 17:42 EDT [facility] Blood VENOUS BLOOD / Unknown Venipuncture / Unknown 06/02/2023 14:25 EDT 06/02/2023 14:25 EDT Jackelyn Miramontes MD PACKAGES & DNA PROBE ORDERABLES Performing Organization Address City/State/[facility] Co de Phone Number [facility] [address] [place] [address] documented in this encounter Visit Diagnoses Diagnosis Nausea- Primary Nausea alone Weight loss Loss of weight 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 Therapy completed 06/02/2023 documented as of this encounter Care Teams Supervisor Fusing Room Relationship Specialty Start Date End Date Jackelyn Miramontes MD [address] [place] [address] PCP - General 08/23/19 documented as of this encounter
--- OUTSIDE RECORDS SUMMARY | 2024-08-07 13:36 | XMS_ITS | Encounter Summary ---
Author Organization [facility] Address [address] [place] [address] Care Team Providers Care Broadcast Engineer Name Role Phone Clint Miramontes MD Primary Care Provider Encounter Details Date Type Department Care Team (Latest Contact Info) Description 04/28/2023 Plan of Care Documentation [facility] Rehabilitation Therapy [address] [place] [address] [phone] Social History Tobacco Use Types Packs/Day Years [...] as of this encounter Progress Notes * Sydni Chatterjee, PT - 04/28/2023 8228 EDT Outpatient Rehab Plan of Care ASSESSMENT Therapy Diagnosis: acute on chronic neck pain with mobility deficit Assessment: Patient presents to PT with new referral from same provider for neck pain. Patient presents to PT with acute on chronic neck pain with mobility deficit. Patient impairments include decreased and painful cervical spine AROM. Patient would benefit from PT to address the above impairments associated with her neck pain in addition to her knee pain, through therapeutic exercise and manual techniques in order to decrease pain and improve function. Response to Visit: Appears to understand information presented. Understands home exercise program modifications. Goal Review: Short-Term Goals Timeframe: 4 weeks (05/19/23) Patient will be adherent to an HEP to allow for progression Patient will be able to walk community distances without pain or limitation Long-Term Goals Timeframe: 8 weeks (06/16/23) Patient will demonstrate increased LE strength by ability to squat to chair height surface without pain or deviation Patient will be independent with an HEP for independent management of condition Patient will demonstrate c-spine AROM WNL in all planes in order to drive without limitation Barriers to Learning: none Potential Barriers to Progress: chronicity of pain Rehabilitation Potential: Motivation/Commitment to Therapy: Good Rehabilitation Potential: Good PLAN Medical Necessity: Therapy intervention is indicated in order to return to a premorbid level of function or significantly improve current level of function. Physical Therapy is recommended for: Treatment Frequency/ Duration: 1x/week for 8 weeks Therapy Treatment to include: 01837 - TENS Unit Training, 22875 - Hot Cold Pack, 98838 - Electctrical Stimulation Manual, 51786 - Ultrasound, 69230 - Therapeutic Exercise, 07237 - Neuromuscular Re-education, 83913 - Aquatic Therapy/Exercise, 66265 - Manual Therapy and 05032 - Therapeutic Activity Recommended Consults: none Development of Plan of Care: Patient participated in development of plan of care today. ATTENDING PHYSICIAN: Medicare certification needed. Your signature indicates you approve the therapy goals and plan of care outlined on this document dated 04/27/2023. Thank you! Attending Physician Signature Date SYDNI CHATTERJEE, PT 04/28/2023 14:08 documented in this encounter Plan of Treatment Upcoming Encounters Date Type Department Care Team (Late st Contact Info) Description 08/10/2024 16:00 EDT Appointment [facility] MRI [address] [place], [place] [id number] 08/16/2024 14:00 EDT EMILIA [facility] OBGYN Ultrasound [address] [place] [phone] 08/29/2024 14:00 EDT Office Visit [facility] OBGYN [address] [place] [address] Ness Vilchis MD [address] [place] [address], [address] [place] [address] 08/31/2024 16:00 EDT Office Visit [facility] Orthopedics & Sport Medicine [address], [address] [place] [address] Reema Peoples PAToñoC [address] [facility] [address] [place], [place] [phone] 09/01/2024 9:30 EDT Office Visit [facility] Rheumatology [address] [place] [phone] Lin Grider MD [address] [place], [place] [address]B [address] [place] [address] 11/08/2024 14:00 EST Office Visit [facility] Adult Hematology & Oncology [address] [place] [address], [place] [phone] Luz Maria Peter, GABRIEL [address] [place] [address], [facility] [address] [place] [address] 11/22/2024 10:15 EST Office Visit [facility] Family Medicine - [place] [address] [place] [phone] Clint Miramontes MD [address] [place] [phone] documented as of this encounter Visit Diagnoses Not on filedocumented in this encounter Care Teams Broadcast Engineer Relationship Specialty Start Date End Date Clint Miramontes MD [address] [place] [phone] PCP - General 08/23/19 documented as of this encounter
--- OUTSIDE RECORDS SUMMARY | 2024-08-07 13:36 | XMS_ITS | Encounter Summary ---
Author Organization [facility] Address [address] [place] [address] Care Team Providers Care Geek Squad Agent Name Role Phone Clint Miramontes MD Primary Care Provider Reason for Referral * Radiology Services (Routine/Next Available) - Authorization Not Required Specialty Diagnoses / Procedures Referred By Contac malik Referred To Contact Diagnoses Encounter for screening mammogram for malignant neoplasm of breast Procedures MA BREAST SCREENING ELO BILATERAL Clint Miramontes MD [address] [place] [phone] [facility] Referral ID Status Reason Start Date Expiration Date Visits Requested Visits Authorized [id number] Authorization Not Required 04/27/2023 1 1 Reason for Visit * Radiology Services (Routine/Next Available) - Authorization Not Required Specialty Diagnoses / Procedures Referred By Annia gan Referred To Contact Diagnoses Encounter for screening mammogram for malignant neoplasm of breast Procedures MA BREAST SCREENING ELO BILATERAL Clint Miramontes MD [address] [place] [address] [facility] Referral ID Status Reason Start Date Expiration Date Visits Requested Visits Authorized [id number] Authorization Not Required 04/27/2023 1 1 Encounter Details Date Type Department Care Team (Latest Contact Info) Description 06/22/2023 6:51 EDT - 06/22/2023 23:59 EDT Hospital Encounter [facility] Mammography [address] [place] [address] Encounter for screening mammogram for malignant neoplasm [...] Appointment [facility] MRI [address] [place], [place] [phone] 08/16/2024 14:00 EDT EMILIA [facility] OBGYN Ultrasound [address] [place] [phone] 08/29/2024 14:00 EDT Office Visit [facility] OBGYN [address] [place] [address] [phone] Ness Vilchis MD [address] [place] [address]-, [address] [place] [phone] 08/31/2024 16:00 EDT Office Visit [facility] Orthopedics & Sport Medicine [address], [address] [place], [place] [phone] Reema Peoples PA-C 1311 [facility] [address] [place], [place] [phone] 09/01/2024 9:30 EDT Office Visit [facility] Rheumatology [address] [place] [address] [phone] Lin Grider MD [address] [place] [address] [address] [place] [address] 11/08/2024 14:00 EST Office Visit [facility] Adult Hematology & Oncology [address] [place] [address], [place] [phone] Luz Maria Peter, GABRIEL [address] [facility], [facility] [address] [place] [address] 11/22/2024 10:15 EST Office Visit [facility] - [facility] Family Medicine - [place] [address] [place] [address] Clint Miramontes MD [address] [place] [phone] documented as of this encounter Procedures Procedure Name Priority Date/Time Associated Diagnosis Comments MA BREAST SCREENING ELO BILATERAL Routine 06/22/2023 7:30 EDT Encounter for screening mammogram for malignant neoplasm of breast documented in this encounter Results * MA BREAST SCREENING ELO BILATERAL (06/22/2023 7:30 EDT) Anatomical Region Laterality Modality Breast Bilateral Mammography 06/23/2023 11:4 2 EDT Impressions 06/23/2023 11:42 EDT Negative, no evidence of malignancy. RECOMMENDATION: Routine screening mammography is recommended. OVERALL ASSESSMENT: BI-RADS 1: Negative These results will be communicated to your patient via a lay letter from Radiology. If any additional imaging is needed we will contact your patient directly. [id number] Narrative 06/23/2023 11:42 EDT MA BREAST SCREENING ELO BILATERAL ??06/22/2023 7:10 AM History: BREAST SCREENING; BREAST SCREENING;Z12.31:Encounter for screening mammogram for malignant neoplasm of breast Comparison: ??Comparison has been made to previous images . ? Technique: Routine 3D tomosynthesis with synthesized 2D views with CAD Breast Composition: There are scattered areas of fibroglandular density. Bilateral Breast Findings: ??No significant masses, calcifications or other abnormalities are seen. Procedure Note French Dugan MD - 06/23/2023 MA BREAST SCREENING ELO BILATERAL 06/22/2023 7:10 AM History: BREAST SCREENING; BREAST SCREENING;Z12.31:Encounter for screeningmammogram for malignant neoplasm of breast Comparison: Comparison has been made to previous [...] is needed we will contact yourpatient directly. [id number] Clint Miramontes MD IMG MAMMOGRAPHY PRABHU TREMAYNE documented in this encounter Visit Diagnoses Diagnosis Encounter for screening mammogram for malignant neoplasm of breast Other screening mammogram documented in this encounter Care Teams Geek Squad Agent Relationship Specialty Start Date End Date Clint Miramontes MD [address] [place] [phone] PCP - General 08/23/19 documented as of this encounter
--- OUTSIDE RECORDS SUMMARY | 2024-08-07 13:36 | XMS_ITS | Encounter Summary ---
Author Organization [facility] Address [address] [place] [address] Care Team Providers Care Wool Washer Feeder Name Role Phone Clint Miramontes MD Primary Care Provider [phone] Reason for Visit * Cardiology (Routine/Next Available) - Closed Specialty Diagnoses / Procedures Referred By Annia gan Referred To Contact Nuclear Medicine Diagnoses Nausea Procedures NM CARD SPECT NUCLEAR STRESS Clint Miramontes MD [address] [place] [phone] [facility] Referral ID Status Reason Start Date Expiration Date Visits Re quested Visits Authorized [id number] Closed 04/08/2023 05/23/2023 1 1 Encounter Details Date Type Department Care Team (Latest Contact Info) Description 04/29/2023 7:52 EDT - 04/29/2023 23:59 EDT Hospital Encounter [facility] [place]-Invasive Cardiology [address] [place], [place] [address] Discharge Disposition: Home or Self Care Social [...] Contact Info) Description 08/10/2024 16:00 EDT Appointment [address] [address] 08/16/2024 14:00 EDT EMILIA [facility] OBGYN Ultrasound [address] [place], [place] [phone] 08/29/2024 14:00 EDT Office Visit [facility] OBGYN [address] [place] [address] Ness Vilchis MD 130 [facility], [address] [place] [address] 08/31/2024 16:00 EDT Office Visit [facility] Orthopedics & Sport Medicine [address], [address] [place] [address] Reema Peoples, PAToñoC [address] [facility] [address] [place], [place] [phone] 09/01/2024 9:30 EDT Office Visit [facility] Rheumatology [address] [place], [place] [phone] Lin Grider MD [address] [place] [address] [address] [place] [address] 11/08/2024 14:00 EST Office Visit [facility] Adult Hematology & Oncology [address] [place] [phone] Luz Maria Peter, GABRIEL [address] [facility] [address] [place] [address] 11/22/2024 10:15 EST Office Visit [facility] Family Medicine - [place] [address] [place] [address] Clint Miramontes MD [address] [place] [phone] documented as of this encounter Procedures Procedure Name Priority Date/Time Associated Diagnosis Comments NM CARD SPECT PHARM MULT STUDIES COMPLETE Routine 04/29/2023 10:22 EDT Nausea documented in this encounter Visit Diagnoses Not on filedocumented in this encounter Administered Medications Inactive Administered Medications - up to 3 most recent administrations Medication Order MAR Action Action Date Dose Rate Site aminophylline injection 75 mg 75 mg, intravenous, NOW X1, 1 dose, On Thu04/29/23 at 1030, Routine Given 04/29/2023 9:34 EDT 75 mg regadenoson (LEXISCAN) injection syringe 0.4 mg 0.4 mg, intravenous, NOW X1, 1 dose, On Thu04/29/23 at 1030, Routine Given 04/29/2023 9:30 EDT 0.4 mg documented in this encounter Care Teams Wool Washer Feeder Relationship Specialty Start Date End Date Clint Miramontes MD [address] [place] [phone] PCP - General 08/23/19 documented as of this encounter
--- OUTSIDE RECORDS SUMMARY | 2024-08-07 13:36 | XMS_ITS | Encounter Summary ---
Author Organization [facility] Address [address] [place] [address] Care Team Providers Care Silo Operator Name Role Phone Clint Miramontes MD Primary Care Provider [phone] Reason for Visit * Reason Comments Other CT Scan Chest xray r esult discussion. Weight Loss Encounter Details Date Type Department Care Team (Late st Contact Info) Description 06/29/2023 15:30 EDT Office Visit [facility] Family Medicine - [place] [address] [place] [phone] Clint Miramontes MD [address] [place] [phone] Weight loss (Primary Dx); Elevated pancreatic enzyme Social History Tobacco Use [...] Sign Reading Time Taken Comments Blood Pressure 118/60 06/29/2023 1528 EDT Pulse 64 06/29/2023 1528 EDT Temperature 36.6 ??C (97.9 ??F) 06/29/2023 1528 EDT Respiratory Rate 18 06/29/2023 1528 EDT Oxygen Saturation 98% 06/29/2023 1528 EDT Inhaled Oxygen Concentration - - Weight 43.3 kg (95 lb 8 oz) 06/29/2023 1528 EDT Height - - Body Mass Index 19.29 06/25/2023 0801 EDT documented in this encounter [...] as of this encounter Progress Notes * Clint Miramontes MD - 06/29/2023 1530 EDT Subjective: Patient ID: Mel Ramirez is an 73 y.o. female. Weight loss HPI Mel visits with weight loss and nausea. She has a history of Lymphoma. Lipase as noted to be elevated. CT abdomen appeared ok. EGD last week for on going exertional nausea. No chest pains. No shortness of breath. She has a history of COPD. She smokes MJ. She has seen Oncology this month for weight loss. Lab Results Component Value Date LIPASE 356 (H) 06/02/2023 Lab Results Component Value Date CREATININE 0.58 06/08/2023 Lab Results Component Value Date NA 136 06/08/2023 K 4.3 06/08/2023 CL 98 06/08/2023 CO2 27 06/08/2023 Lab Results Component Value Date TSH 0.74 06/02/2023 SPEP/UPEP normal. 06/24 CT: IMPRESSION ?? 1. No acute abdominopelvic abnormality identified. No CT evidence of acute pancreatitis, however this cannot be excluded by imaging alone. 2. Ovoid 5 mm hypodense pancreatic tail lesion, stable compared to 2011, therefore likely benign. 3. Calcified fibroids. 4. BILOCULAR 2.8 CM LEFT ADNEXAL CYSTIC LESION, similar to the prior ultrasound of July 2022, although enlarged compared to older studies. O-RADS category 2: Almost certainly benign. Per ACR guidelines, surveillance ultrasound is recommended in 12 months. ??5. Chronic mild right hydronephrosis and proximal hydroureter of uncertain etiology, similar to 2012. Clinical correlation required. ?? Nulcear stress test: Nuc Impression There was normal perfusion and function and normal contraction. Negative for inducible ischemia after pharmacological stress. CXR 06/24 normal. EGD 06/25 was performed. Colonoscopy 09/20 Patient Active Problem List Diagnosis ??? Cerebral [...] edibles ROS - See HPI Objective: BP 118/60 Pulse 64 Temp 36.6 ??C (97.9 ??F) (Oral) Resp 18 Wt (!) 43.3 kg (95 lb 8 oz) SpO2 98% BMI 19.29 kg/m?? Wt Readings from Last 3 Encounters: 06/29/23 (!) 43.3 kg (95 lb 8 oz) 06/25/23 (!) 44.5 kg (98 lb) 06/08/23 (!) 44.5 kg (98 lb) BP Readings from Last 3 Encounters: 06/29/23 118/60 06/25/23 123/63 06/08/23 110/68 Physical Exam Gen: Alert and oriented. No distress Cardiovascular: Normal rate, regular rhythm and normal heart sounds. No murmurs. Pulmonary/Chest: Effort normal and breath sounds normal. Psychiatric: normal mood and affect. Assessment: Weight loss/nausea - awaiting EGD results. Recent visit to Oncology. Will check Lipase/lipids. She has been eating only 2 meals per day. I suggested increase daily caloric intake and see me in 4 weeks. She is agreeable with plan. I spent a total of 31 minutes on the date of this encounter meeting with the patient and reviewing documentation/coordinating care as described in the above note. Plan: Mel was seen today for other and weight loss. Diagnoses and all orders for this visit: Weight loss - LIPASE - LIPID PROFILE (INCLUDES CHOLESTEROL, TRIGLYCERIDES, HDL, LDL) Elevated pancreatic enzyme - LIPASE - LIPID PROFILE (INCLUDES CHOLESTEROL, TRIGLYCERIDES, HDL, LDL) No follow-ups on file. documented in this encounter Plan of Treatment Upcoming Encounters Date Type Department Care Team (Late st Contact Info) Description 08/10/2024 16:00 EDT Appointment [facility] MRI [address] [place], [place] [phone] 08/16/2024 14:00 EDT EMILIA [facility] OBGYN Ultrasound [address] [place] [phone] 08/29/2024 14:00 EDT Office Visit [facility] OBGYN [address] [place] [phone] Ness Vilchis MD 130 [facility], [address] [place] [phone] 08/31/2024 16:00 EDT Office Visit [facility] Orthopedics & Sport Medicine [address], [address] [place] [address] Reema Peoples PA-C 1311 [facility] [address] [place], [place] [phone] 09/01/2024 9:30 EDT Office Visit [facility] Rheumatology [address] [place], [place] [phone] Lin Grider MD 130 [facility] [address] [place] [address] 11/08/2024 14:00 EST Office Visit [facility] Adult Hematology & Oncology [address] [place] [address] Luz Maria Peter, GABRIEL 130 [facility], [facility] [address] [place] [address] 11/22/2024 10:15 EST Office Visit [facility] Family Medicine - [place] [address] [place] [address] Clint Miramontes MD [address] [place] [phone] documented as of this encounter Procedures Procedure Name Priority Date/Time Associated Diagnosis Comments LIPASE Routine 06/29/2023 16:17 EDT Weight loss Elevated pancreatic enzyme LIPID PROFILE (INCLUDES CHOLESTEROL, TRIGLYCERIDES, HDL, LDL) Routine 06/29/2023 16:17 EDT Weight loss Elevated pancreatic enzyme documented in this encounter Results * (ABNORMAL) LIPID PROFILE (INCLUDES CHOLESTEROL, TRIGLYCERIDES, HDL, LDL) (06/29/2023 16:17 EDT) Cholesterol 175 <200 mg/dL 06/30/2023 17:49 EDT [facility] Comment:Note that therapeuti c goals will differ between patients based on cardiac risk factors and current medical therapy. HDL 47(L) >=50 mg/dl 06/30/2023 17:49 [facility] Comment:Note that therapeuti c goals will differ between patients based on cardiac risk factors and current medical therapy. LDL, Calculated 102 <160 mg/dL 17:49 [facility] Comment:Note that therapeuti c goals will differ between patients based on cardiac risk factors and current medical therapy. Triglyceride 131 <=150 mg/dL 06/30/2023 17:49 EDT [facility] Comment:Note that therapeuti c goals will differ between patients based on cardiac risk factors and current medical therapy. Chol/HDL Ratio 3.7 See Note 06/30/2023 17:49 EDT [facility] Comment: NOTE: Desirable Ratio = <4.1 Patient At Risk Ratio = >5.0(Males) ?>6.0(Females) Non HDL Cholesterol 128 <160 mg/dL 06/30/2023 17:49 EDT [facility] Comment:Note that therapeuti c goals will differ between patients based on cardiac risk factors and current medical therapy. Blood VENOUS BLOOD / Unknown Venipuncture / Unknown 06/29/2023 16:17 EDT 06/29/2023 16:17 EDT Clint Miramontes MD CHEMISTRY & BLOOD GA S ORDERABLES Performing Organization Address [facility] Co de Phone Number [facility] [address] [place] [address] * LIPASE (06/29/2023 16:17 EDT) Lipase 205 <251 U/L 06/30/2023 17:49 EDT [facility] Blood VENOUS BLOOD / Unknown Venipuncture / Unknown 06/29/2023 16:17 EDT 06/29/2023 16:17 EDT Clint Miramontes MD CHEMISTRY & BLOOD GA S ORDERABLES Performing Organization Address [facility] Co de Phone Number [facility] [address] [place] [address] documented in this encounter Visit Diagnoses Diagnosis Weight loss- Primary Loss of weight Elevated pancreatic enzyme Other nonspecific abnormal serum enzyme levels documented in this encounter Care Teams Silo Operator Relationship Specialty Start Date End Date Clint Miramontes MD [address] [place] [phone] PCP - General 08/23/19 documented as of this encounter
--- OUTSIDE RECORDS SUMMARY | 2024-08-07 13:36 | XMS_ITS | Encounter Summary ---
Author Organization [facility] Address [address] [place] [address] Care Team Providers Care Residential Recycle Driver Name Role Phone Clint Miramontes MD Primary Care Provider Reason for Visit * Reason Comments Follow-up Encounter Details Date Type Department Care Team (Late st Contact Info) Description 04/17/2023 15:15 EDT Telemedicine [facility] Orthopedics & Sport Medicine [address] [place], [place] [phone] Reema Peoples PA-C [address] [place] [address] [phone] Left knee pain, unspecified chronicity (Primary Dx) [...] Progress Notes * Reema Peoples PA-C - 04/17/2023 1515 EDT [facility] Telephone Visit Today's visit was provided via telephone audio only. The location of the patient: Home The location of the provider: Office Verbal consent: The concept of ???Telemedicine?? has been described to the patient. Patient has been informed of the anticipated benefits and possible risks. Patient understands the information provided regarding telemedicine, has had the opportunity to ask questions about this information, and all questions havebeen answered to patient???s satisfaction. Patient consents for the use of telemedicine in his/her medical care and authorizes the transmission of any relevant medical information to providers and their staff involved in patient???s medical or mental health care. Verbal consent obtained by myself or auxiliary staff: yes. I have determined that an audio-only visit is appropriate due to: Physical exam not indicated based on available information Subjective: Chief Complaint(s): No chief complaint on file. HPI: Mel is on the phone to follow-up for her left knee injection, for early osteoarthritis on 03/09/2023. She has had 100% relief of her pain. Sometimes will notice some stiffness or soreness when she is in the car for a long time but doing very well. I have reviewed patient's tobacco history: reports that she quit smoking about 40 years ago. Her smoking use included cigarettes. She started smoking about 59 years ago. She smoked an average of 1 pack per day. She has never used smokeless tobacco. I have reviewed current problem list and current medications. ROS: ROS Negative as otherwise noted above. Objective: Examination: Home Vitals: There were no vitals taken for this visit. Pertinent exam findings: speaking in full sentences, no audible wheeze and mood and affect appropriate Assessment & Plan: 1. Left knee pain, unspecified chronicity Doing well after injection, follow-up as needed. Can repeat injection, or try viscosupplementation at any time. Patient initiated phone contact with the office: yes. Patient is an established patient (parent, guardian) yes. E/M provided within previous 7 days for same medical assessment: no Anticipate E/M service within 24hrs or next available urgent appointment no. This visit was conducted by telephone. A total of 6 minutes was spent on this encounter on the day of this encounter. documented in this encounter Plan of Treatment Upcoming Encounters Date Type Department Care Team (Late st Contact Info) Description 08/10/2024 16:00 EDT Appointment [facility] MRI [address] [place], [place] [id number] 08/16/2024 14:00 EDT EMILIA [facility] OBGYN Ultrasound [address] [place] [address] 08/29/2024 14:00 EDT Office Visit [facility] OBGYN [address] [place] [address] [phone] Ness Vilchis MD [address] [place], [place] [address]A, [address] [place] [address] 08/31/2024 16:00 EDT Office Visit [facility] Orthopedics & Sport Medicine [address], [address] [place], [place] [phone] Reema Peoples PA-C 1311 [facility] [address] [place], [place] [phone] 09/01/2024 9:30 EDT Office Visit [facility] Rheumatology [address] [place] [address] [phone] Lin Grider MD [address] [place] [address] [address] [place] [phone] 11/08/2024 14:00 EST Office Visit [facility] Adult Hematology & Oncology [address] [place] [address] [place] [address] Luz Maria Peter, GABRIEL 130 [facility], [facility] [address] [place] [phone] 11/22/2024 10:15 EST Office Visit [facility] Family Medicine - [place] [address] [place] [address] [phone] Clint Miramontes MD [address] [place] [phone] documented as of this encounter Visit Diagnoses Diagnosis Left knee pain, unspecified chronicity- Primary documented in this encounter Care Teams Residential Recycle Driver Relationship Specialty Start Date End Date Clint Miramontes MD [address] [place] [phone] PCP - General 08/23/19 documented as of this encounter
--- OUTSIDE RECORDS SUMMARY | 2024-08-07 13:36 | XMS_ITS | Encounter Summary ---
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) Procedures XR CHEST 2 VIEWS Clint Miramontes MD [address] [place] [address] [facility] Referral ID Status Reason Start Date Expiration Date Visits Requested Visits Authorized [id number] Authorization Not Required 06/02/2023 1 1 Reason for Visit * Radiology Services (Routine/Next Available) - Authorization Not Required Specialty Diagnoses / Procedures Referred By Contac t Referred To Contact Diagnoses Nausea 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 Xray [address] [place] [address] Nausea; Weight loss; 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 ([facility]) Discharge Disposition: Home or Self Care Social [...] Info) Description 08/10/2024 16:[address] [facility] MRI [address] [place], [place] 430[address] 08/16/2024 14:[address] [facility] OBGYN Ultrasound [address] [place] [address] [phone] 08/29/2024 14:[address] [facility] OBGYN [address] [place] [address] [phone] Ness Vilchis MD [address] [place] [address]-A, [address] [place] [phone] 08/31/2024 16:[address] [facility] Orthopedics & Sport Medicine [address], [address] [place], [place] [phone] Reema Peoples PA-C 1311 [facility] [address] [place] [address] 09/01/2024 9:[address] [facility] Rheumatology [address] [place] [address] [phone] Lin Grider MD [address] [place] [address] [address] [place] [address] 11/08/2024 14:[address] [facility] Adult Hematology & Oncology [address] [place] [address] [phone] Luz Maria Peter NP [address], MOB-[address] [place] [address] 11/22/2024 10:[address] 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 No lymphadenopathy evident. [id number] Narrative 06/08/2023 9:34 EDT XR CHEST 2 [...] IMPRESSION No acute findings. No lymphadenopathy evident. 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
--- OUTSIDE RECORDS SUMMARY | 2024-08-07 13:36 | XMS_ITS | Encounter Summary ---
Author Organization [facility] Address [address] [place] [address] Care Team Providers Care Scheduler Conveyor Name Role Phone Clint Miramontes MD Primary Care Provider [phone] Encounter Details Date Type Department Care Team (Latest Contact Info) Description 04/21/2023 Plan of Care Documentation [facility] Rehabilitation Therapy [address] [place] [address] [phone] Social History Tobacco Use Types Packs/Day Years [...] Progress Notes * Sydni Chatterjee, PT - 04/21/2023 0840 EDT Outpatient Rehab Plan of Care ASSESSMENT Therapy Diagnosis: left knee pain secondary to presence of bakers cyst and decrease LE strength Problem List: Decreased strength, Difficulty completing job tasks, Difficulty with prolonged standing, Impaired bed mobility, Impaired transfers, Need for an independent home exercise program, Pain and Postural deviation Assessment: Patient is referred to PT for left knee pain. Patient presents to PT with left knee pain secondary to presence of bakers cyst, and decreased LE strength. Patient impairments include decreased LE strength. Patient impairments impact her ability to walk, stand and perform sit to stand transfers. Patient would benefit from PT to address the above impairments through therapeutic exercise,modalities and manual techniques to improve function. Equipment Needed: none Barriers to Learning: none Potential Barriers to Progress: Architectural barriers in home Response to Evaluation: Well Rehabilitation Potential: Motivation/Commitment to Therapy: Good Rehabilitation Potential: Good Short-Term Goals Timeframe: 4 weeks (05/19/23) Patient [...] an HEP for independent management of condition PLAN Medical Necessity: Therapy intervention is indicated in order to return to a premorbid level of function or significantly improve current level of function. Physical Therapy is recommended for: Treatment Frequency/ Duration: 1x/week for 8 weeks Therapy Treatment to include: 06468 - Hot Cold Pack, 08137 - Electctrical Stimulation Manual, 02728- Ultrasound, 33219 - Therapeutic Exercise, 51591 - Neuromuscular Re-education, 70721 - Aquatic Therapy/Exercise, 07584 - Gait Training, 69292 - Manual Therapy and 83053 - Therapeutic Activity Recommended Consults: none Development of Plan of Care: Patient participated in development of plan of care today. Plan for next visit: progressive LE strengthening, manual techniques ATTENDING PHYSICIAN: Medicare certification needed. Your signature indicates you approve the therapy goals and plan of care outlined on this document dated 04/20/2023. Thank you! Attending Physician Signature Date SYDNI CHATTERJEE, PT 04/21/2023 8:40 documented in this encounter Plan of Treatment Upcoming Encounters Date Type Department Care Team (Late st Contact Info) Description 08/10/2024 16:00 EDT Appointment [facility] MRI [address] [place] [address] 08/16/2024 14:00 EDT EMILIA [facility] OBGYN Ultrasound [address] [place] [address] 08/29/2024 14:00 EDT Office Visit [facility] OBGYN [address] [place] [address] Ness Vilchis MD [address] [place] [address], [address] [place] [address] 08/31/2024 16:00 EDT Office Visit [facility] Orthopedics & Sport Medicine [address], [address] [place] [address] Reema Peoples, PA-C 1311 [facility] [address] [place] [address] 09/01/2024 9:30 EDT Office Visit [facility] Rheumatology [address] [place] [address] Lin Grider MD [address] [place], [place] [address] [address] [place] [address] 11/08/2024 14:00 EST Office Visit [facility] Adult Hematology & Oncology [address] [place] [address] Luz Maria Peter NP 130 [facility], [address]-[address] [place] [phone] 11/22/2024 10:15 EST Office Visit [facility] Family Medicine - [address] [address] Clint Miramontes MD [address] [place] [phone] documented as of this encounter Visit Diagnoses Not on filedocumented in this encounter Care Teams Scheduler Conveyor Relationship Specialty Start Date End Date Clint Miramontes MD [address] [place] [phone] PCP - General 08/23/19 documented as of this encounter
--- OUTSIDE RECORDS SUMMARY | 2024-08-07 13:36 | XMS_ITS | Encounter Summary ---
Author Organization [facility] Address [address] [place] [address] Care Team Providers Care Pleasure Craft Sailor Name Role Phone Clint Miramontes MD Primary Care Provider [phone] Reason for Visit * Reason Comments Medications Refill Encounter Details Date Type Department Care Team (Late st Contact Info) Description 05/07/2023 Refill [facility] Family Medicine [address] [address] Clint Miramontes MD [address] [place] [phone] Medications Refill Social History Tobacco Use Types [...] Dispensed Refills Start Date End Da te FLOVENT HFA 110 mcg/actuation inhaler INHALE 2 PUFFS EVERY 12 HOURS DIRECTED 12 g 3 05/07/2023 05/19/2024 documented in this encounter Miscellaneous Notes * Telephone Encounter - Maci Farrar RN - 05/07/2023 0938 EDT Electronic request received from pharmacy. CAROL: 04/03/23 Follow-up: AWV 12/11/23 Rx sent per protocol documented in this encounter Plan of Treatment Upcoming Encounters Date Type Department Care Team (Late st Contact Info) Description 08/10/2024 16:00 EDT Appointment [facility] MRI [address] [place], [place] [phone] 08/16/2024 14:00 EDT EMILIA [facility] OBGYN Ultrasound [address] [place] [address] 08/29/2024 14:00 EDT Office Visit [facility] OBGYN [address] [place], [place] [phone] Ness Vilchis MD 130 [facility] MOB-A, [address] [place] [phone] 08/31/2024 16:00 EDT Office Visit [facility] Orthopedics & Sport Medicine [address], [address] [place], [place] [phone] Reema Peoples PA-C 1311 [facility] [address] [place], [place] [address] 09/01/2024 9:30 EDT Office Visit [facility] Rheumatology 130 [facility] [place] [address] Lin Grider MD 130 [facility] [address] [place] [address] 11/08/2024 14:00 EST Office Visit [facility] Adult Hematology & Oncology [facility] [place] [address] Luz Maria Peter NP 130 [facility], [facility] [address] [place] [address] 11/22/2024 10:15 EST Office Visit [facility] Family Medicine - [place] [address] [place] [address] [phone] Clint Miramontes MD [address] [place] [address] [phone] documented as of this encounter Visit Diagnoses Not on filedocumented in this encounter Discontinued Medications Medication Sig Discontinue Reason Start Date End Da te fluticasone propionate (FLOVENT HFA) 110 mcg/actuation inhaler Inhale 2 Puffs as directed every 12 hours. 04/21/2022 05/07/2023 documented as of this encounter Care Teams Pleasure Craft Sailor Relationship Specialty Start Date End Date Clint Miramontes MD [address] [place] [address] [phone] PCP - General 08/23/19 documented as of this encounter
--- OUTSIDE RECORDS SUMMARY | 2024-08-07 13:36 | XMS_ITS | Encounter Summary ---
Author Organization [facility] Address [address] [place] [address] Care Team Providers Care Moving Van Driver Name Role Phone Clint Miramontes MD Primary Care Provider [phone] Reason for Visit * Reason Onset Date Comments Follow-up 05/06/2023 Encounter Details Date Type Department Care Team (Late st Contact Info) Description 05/06/2023 Telephone [facility] OBGYN [address] [place], [place] [phone] Imelda Lazo RN Follow-up Social History Tobacco [...] Telephone Encounter - Imelda Lazo RN - 05/19/2023 1313 EDT 07/2021-u/s ---f/u u/s for left ovarian cyst with ov with jv after (end 07/2022) 07/14/2022-left ovarian cyst unchanged--repeat 1 year (07/2023) to confirm stability. 07/14/2023-u/s pelvis tv Has apt scheduled for u/s. Tracking updated. * Telephone Encounter - Imelda Lazo RN - 05/06/2023 1522 EDT Streamfile message sent to pt regarding u/s due 07/2023 and to call DI for scheduling. * Telephone Encounter - Imelda aLzo RN - 05/06/2023 1519 EDT Left message for pt to call to schedule u/s in DI and call us if questions. Numbers given. * Telephone Encounter - Imelda Lazo RN - 05/06/2023 1516 EDT U/s not visible in ago snapboard que. Spoke with u/s and order is visible on their side. Will prompt pt to schedule with DI. * Telephone Encounter - Ness Vilchis MD - 05/06/2023 1329 EDT There is already an order placed 07/14/22 at 17:19 Do you need another? * Telephone Encounter - Imelda Lazo RN - 05/06/2023 1327 EDT Pt in trackin07/2021-u/s ---f/u u/s for left ovarian cyst with ov with jv after (end 07/2022) 07/14/2022-left ovarian cyst unchanged--repeat 1 year (07/2023) to confirm stability. To JV for orders documented in this encounter Plan of Treatment Upcoming Encounters Date Type Department Care Team (Late st Contact Info) Description 08/10/2024 16:00 EDT Appointment [facility] MRI [address] [place], [place] [address] 08/16/2024 14:00 EDT EMILIA [facility] OBGYN Ultrasound [address] [place] [address] 08/29/2024 14:00 EDT Office Visit [facility] OBGYN [address] [place], [place] [phone] Ness Vilchis MD [address] [place] [address], [address] [place] [phone] 08/31/2024 16:00 EDT Office Visit [facility] Orthopedics & Sport Medicine [address], [address] [place], [place] [phone] Reema Peoples PA-C 1311 [facility] [address] [place], [place] [address] 09/01/2024 9:30 EDT Office Visit [facility] Rheumatology [address] [place], [place] [phone] Lin Grider MD 130 [facility] MOB[address] [place] [address] 11/08/2024 14:00 EST Office Visit [facility] Adult Hematology & Oncology [facility] [place] [address] Luz Maria Peter, GABRIEL 130 [facility], [facility] [address] [place] [phone] 11/22/2024 10:15 EST Office Visit [facility] Family Medicine - [place] [address] [place] [address] [phone] Clint Miramontes MD [address] [place] [phone] documented as of this encounter Visit Diagnoses Not on filedocumented in this encounter Care Teams Moving Van Driver Relationship Specialty Start Date End Date Clint Miramontes MD [address] [place] [phone] PCP - General 08/23/19 documented as of this encounter
--- OUTSIDE RECORDS SUMMARY | 2024-08-07 13:36 | XMS_ITS | Encounter Summary ---
Author Organization [facility] Address [address] [place] [address] Care Team Providers Care Forensic Medical Examiner Name Role Phone Clint Miramontes MD Primary Care Provider [phone] Reason for Visit * Reason Comments Medications Refill Encounter Details Date Type Department Care Team (Late st Contact Info) Description 04/19/2023 Refill [facility] Medicine [address] [address] Clint Miramontes MD [address] [place] [address] [phone] Medications Refill Social History Tobacco Use Types [...] FOR ANXIETY 30 Tablet 3 04/20/2023 08/14/2023 documented in this encounter Miscellaneous Notes * Telephone Encounter - Maci Farrar, ATTILA - 04/20/2023 1008 EDT Electronic request received from pharmacy. CAROL: 04/03/23 Follow-up: AWV 12/11/23 Per KENNY, Lorazepam last filled 03/19/23 #30 for 30 days Rx loaded for your review documented in this encounter Plan of Treatment Upcoming Encounters Date Type Department Care Team (Late st Contact Info) Description 08/10/2024 16:00 EDT Appointment [facility] MRI [address] [place] [address] 08/16/2024 14:00 EDT EMILIA [facility] OBGYN Ultrasound [address] [place], [place] [phone] 08/29/2024 14:00 EDT Office Visit [facility] OBGYN [address] [place], [place] [phone] Ness Vilchis MD 130 [facility] MOB-A, [address] [place] [address] 08/31/2024 16:00 EDT Office Visit [facility] Orthopedics & Sport Medicine [address], [address] [place] [address] Reema Peoples PA-C 1311 [facility] [address] [place], [place] [phone] 09/01/2024 9:30 EDT Office Visit [facility] Rheumatology 130 [facility] [place] [address] Lin Grider MD 130 [facility] MOB-B [address] [place] [address] 11/08/2024 14:00 EST Office Visit [facility] Adult Hematology & Oncology [facility] [place] [address] Luz Maria Peter NP 130 [facility], [facility] [address] [place] [address] 11/22/2024 10:15 EST Office Visit [facility] Family Medicine - [place] [address] [place] [phone] Clint Miramontes MD [address] [place] [phone] documented as of this encounter Visit Diagnoses Not on filedocumented in this encounter Discontinued Medications Medication Sig Discontinue Reason Start Date End Da te LORazepam (ATIVAN) 1 mg tablet Take 1 Tablet by mouth at bedtime as needed for Anxiety. Daily Max: 1 mg 12/16/2022 04/20/2023 documented as of this encounter Care Teams Forensic Medical Examiner Relationship Specialty Start Date End Date Clint Miramontes MD [address] [place] [address] [phone] PCP - General 08/23/19 documented as of this encounter
--- OUTSIDE RECORDS SUMMARY | 2024-08-07 13:36 | XMS_ITS | Encounter Summary ---
Author Organization [facility] Address [address] [place] [address] Care Team Providers Care Ore Crusher Name Role Phone Clint Miramontes MD Primary Care Provider [phone] Reason for Visit * Reason Onset Date Comments Labs Only 06/08/2023 Encounter Details Date Type Department Care Team (Late st Contact Info) Description 06/08/2023 Telephone [facility] Adult Hematology & Oncology [facility] [place] [address] Luz Maria Peter, GABRIEL [address] [place] [address] [address] [place] [address] Labs Only Social History Tobacco Use Types Packs/Day Years [...] encounter Miscellaneous Notes * Telephone Encounter - Juliet Fabian RN - 06/08/2023 1214 EDT [place] top tube brought to lab. * Telephone Encounter - Tegan Lund - 06/08/2023 1124 EDT [facility] [place] called, they still need the GOLD TOP. They received the LAVENDER TOP but not the GOLD TOP. documented in this encounter Plan of Treatment Upcoming Encounters Date Type Department Care Team (Late st Contact Info) Description 08/10/2024 16:00 EDT Appointment [facility] MRI [address] [place] [address] 08/16/2024 14:00 EDT EMILIA [facility] OBGYN Ultrasound [address] [place], [place] [phone] 08/29/2024 14:00 EDT Office Visit [facility] OBGYN [address] [place], [place] [phone] Ness Vilchis MD 130 [facility], [address] [place] [address] 08/31/2024 16:00 EDT Office Visit [facility] Orthopedics & Sport Medicine [address] [place], [place] [phone] Reema Peoples PA-C [address] [facility] [address] [place], [place] [phone] 09/01/2024 9:30 EDT Office Visit [facility] Rheumatology 130 [facility] [place] [address] Lin Grider MD [address] [facility] [address] [place] [address] 11/08/2024 14:00 EST Office Visit [facility] Adult Hematology & Oncology [address] [place] [address], [place] [address] Luz Maria Peter NP 130 [facility], [facility] [address] [place] [address] 11/22/2024 10:15 EST Office Visit [facility] Family Medicine - [place] [address] [place] [address] Clint Miramontes MD [address] [place] [phone] documented as of this encounter Visit Diagnoses Not on filedocumented in this encounter Care Teams Ore Crusher Relationship Specialty Start Date End Date Clint Miramontes MD [address] [place] [phone] PCP - General 08/23/19 documented as of this encounter
--- OUTSIDE RECORDS SUMMARY | 2024-08-07 13:36 | XMS_ITS | Encounter Summary ---
Author Organization [facility] Address [address] [place] [address] Care Team Providers Care It Associate Name Role Phone Clint Miramontes MD Primary Care Provider [phone] Reason for Visit * Reason Onset Date Comments Pre-visit Orders 08/06/2023 Encounter Details Date Type Department Care Team (Late st Contact Info) Description 08/06/2023 Telephone [facility] [place] [address] [place] [phone] Clint Miramontes MD [address] [place] [phone] Pre-visit Orders Social History Tobacco Use Types Packs/Day Years [...] Notes * Telephone Encounter - Luz Maria Hdz RN - 08/06/2023 1606 EDT Left a detailed voicemail for Mel * Telephone Encounter - Luz Maria Hdz RN - 08/06/2023 1604 EDT Clint Miramontes MD P [facility] Nurse Probably wait. ??No real indication for testing * Telephone Encounter - Yolanda Vera - 08/06/2023 1344 EDT Pt called to ask if LEVI would put in orders for her for a Lyme disease test. She was not bitten by a tick. She has health issues and a friend of hers said that she should get tested whether bitten or not. If LEVI does this she would like it done at [facility]. It is closer to where she lives. She also mentioned that she had an Eye appt. And the prescription was changed and the Dr asked if she was diabetic. She does have an appt with LEVI next week on 08/13/23. Please Advise [phone], message [phone] documented in this encounter Plan of Treatment Upcoming Encounters Date Type Department Care Team (Late st Contact Info) Description 08/10/2024 16:00 EDT Appointment [facility] MRI [address] [place] [address] 08/16/2024 14:00 EDT EMILIA [facility] OBGYN Ultrasound [address] [place] [address] 08/29/2024 14:00 EDT Office Visit [facility] OBGYN [address] [place] [address] Ness Vilchis MD 130 [facility], [address] [place] [phone] 08/31/2024 16:00 EDT Office Visit [facility] Orthopedics & Sport Medicine [address], [address] [place] [address] Reema Peoples PA-C 13[address] [facility] [address] [place], [place] [phone] 09/01/2024 9:30 EDT Office Visit [facility] Rheumatology [address] [place], [place] [address] Lin Grider MD [address] [place] [address] [address] [place] [address] 11/08/2024 14:00 EST Office Visit [facility] Adult Hematology & Oncology [address] [place] [phone] Luz Maria Peter NP [address] [place] [address] [address] [place] [address] 11/22/2024 10:15 EST Office Visit [facility] Family Medicine - [place] [address] [place] [address] Clint Miramontes MD [address] [place] [phone] documented as of this encounter Visit Diagnoses Not on filedocumented in this encounter Care Teams It Associate Relationship Specialty Start Date End Date Clint Miramontes MD [address] [place] [address] PCP - General 08/23/19 documented as of this encounter
--- OUTSIDE RECORDS SUMMARY | 2024-08-07 13:36 | XMS_ITS | Encounter Summary ---
Author Organization [facility] Address [address] [place] [address] Care Team Providers Care Engineering Job Titles Name Role Phone Clint Miramontes MD Primary Care Provider [phone] Encounter Details Date Type Department Care Team (Late st Contact Info) Description 06/04/2023 Orders Only [facility] Scan [address] [place], [place] [address] Brionna Vazquez Social History Tobacco Use Types Packs/Day Years [...] Appointment [facility] MRI [address] [place], [place] [address] 08/16/2024 14:00 EDT EMILIA [facility] OBGYN Ultrasound [address] [place] [address] 08/29/2024 14:00 EDT Office Visit [facility] OBGYN [address] [place] [address] Ness Vilchis MD [address] [place] [address], [address] [place] [address] 08/31/2024 16:00 EDT Office Visit [facility] Orthopedics & Sport Medicine [address], [address] [place], [place] [phone] Reema Peoples, PA-C [address] [facility] [address] [place], [place] [phone] 09/01/2024 9:30 EDT Office Visit [facility] Rheumatology [address] [place] [phone] Lni Grider MD [address] [place] [address] [address] [place] [address] 11/08/2024 14:00 EST Office Visit [facility] Adult Hematology & Oncology [address] [place] [phone] Luz Maria Peter NP [address] [place] [address] [address] [place] [address] 11/22/2024 10:15 EST Office Visit [facility] Family Medicine - [place] [address] [place] [address] Clint Miramontes MD [address] [place] [phone] documented as of this encounter Visit Diagnoses Not on filedocumented in this encounter Care Teams Engineering Job Titles Relationship Specialty Start Date End Date Clint Miramontes MD [address] [place] [phone] PCP - General 08/23/19 documented as of this encounter
--- OUTSIDE RECORDS SUMMARY | 2024-08-07 13:37 | XMS_ITS | Encounter Summary ---
Author Organization [facility] Address [address] [place] [address] Care Team Providers Care Senior Security Analyst Name Role Phone Clint Miramontes MD Primary Care Provider [phone] Reason for Referral * Radiology Services (Routine/Next Available) - New Request Specialty Diagnoses / Procedures [facility] Referred To Contact Diagnoses Age-related osteoporosis without current pathological fracture Procedures DXA BONE DENSITY Lin Grider MD [address] [place], [place] [address] [address] [phone] [facility] Referral ID Status Reason Start Date Expiration Date V isits Requested Visits Authorized [id number] New Request 08/18/2022 1 1 Reason for Visit * Reason Comments Follow-up the Pt. states that doing well and her right shoulder bothers a bit. Encounter Details Date Type Department Care Team (Late st Contact Info) Description 08/18/2022 9:30 EDT Office Visit [facility] [place] [facility] - [facility] Rheumatology [address] [place] [address] Lin Grider MD [address] [place], [place] [address] [address] [place] [address] Age-related osteoporosis without current pathological [...] Sign Reading Time Taken Comments Blood Pressure 144/74 08/18/2022937 EDT Pulse 68 08/18/2022937 EDT Temperature 36.3 ??C (97.3 ??F) 08/18/2022937 EDT Respiratory Rate - - Oxygen Saturation - - Inhaled Oxygen Concentration - - Weight 46.4 kg (102 lb 3.2 oz) 08/18/2022937 E DT Height 148.6 cm (4' 10.5) 08/18/2022937 EDT Body Mass Index 21 08/18/2022937 EDT documented in this encounter Functional Status [...] * Patient Instructions* Lin Grider MD - 08/18/2022 9:30 EDT Labs and bone density in mid-June 2023 Reclast in early Oct. documented in this encounter Progress Notes * Lin Grider MD - 08/18/202230 EDT [facility] Rheumatology Chief Complaint Patient presents with ??? Follow-up the Pt. states that doing well and her right shoulder bothers a bit. HPI: Osteoporosis. DXA 2016: Left hip femoral neck T-score -3.1, with BMD loss of 5% in the total hip compared with prior DXA in 2010. No apparent risk factors. Started ibandronate 08/2016. Tolerated well. Repeat DXA, 06/13/21, [facility]: T-score spine -2.0, T-scrore femoral neck -2.7, T-score total hip -1.7.BMD with decrease at the spine (3.2%); BMD unchanged at the total hip. Due to BMD loss, ibandronatewas stopped and a dose of zoledronic acid was given on 09/30/21. ? INTERVAL HISTORY: Mel returns for follow-up for osteoporosis. At the visit a year ago, Mel had lost BMD at the spine based on DXA in 06/22/21. Therefore, ibandronate was stopped, and Mel received a dose of zoledronic acid on 09/30/21. Today, Mel says she is feeling well. Mel denies any falls or fractures. Says she is taking vit D as directed. Current Outpatient Medications Medication ??? albuterol sulfate 90 mcg/actuation aero powdr breath act w/sensor ??? cholecalciferol, Vitamin D3, (VITAMIN D) 1,000 unit tablet ??? diazePAM (VALIUM) 2 mg tablet ??? fluticasone propionate (FLOVENT HFA) 110 mcg/actuation inhaler ??? inhalational spacing device (E-Z SPACER) ??? LORazepam (ATIVAN) 1 mg tablet ??? lovastatin (MEVACOR) 40 mg tablet No current facility-administered medications for this visit. Allergies include: Crestor [rosuvastatin], Other - see comments, and Pravastatin Patient Active Problem List Diagnosis ??? Cerebral aneurysm, nonruptured ??? Mixed hyperlipidemia ??? Anxiety ??? 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 Aneurysm (HCC-CMS) (HCC) ??? Chronic obstructive pulmonary disease (HCC-CMS) (HCC) ??? Female bladder prolapse ??? Impaired glucose tolerance ??? LBBB (left bundle branch block) ??? Age-related osteoporosis without current pathological fracture ??? Sleep disturbance ??? Vitamin D deficiency ??? Intramural leiomyoma of uterus ??? Other ovarian cyst, left side Family History Problem Relation Age of Onset ??? Lung Cancer Mother ??? Lymphoma Mother ??? Diabetes Mother ??? Hypertension Mother ??? Breast Cancer Paternal Grandmother ??? Stroke Maternal Grandmother ??? Hypertension Father ??? Hypertension Brother ??? Breast Cancer Paternal Aunt ??? Liver Cancer Paternal Aunt ??? Stomach Cancer Paternal Uncle ??? Pancreatic Cancer Maternal Uncle ??? 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 Review of Systems: Review of Systems Constitutional: Negative for weight loss. Mel says she lost 10 pounds quickly this past spring and didn't feel well. She was taken off aspirin (for the aneurysm) and says she felt better gradually, and not sure if due to being off aspirin. Says she is concerned about being off the aspirin and discussed with neurointerventional radiology, and no one has returned phone call (done in June). Skin: Negative for rash. Follows with Dr Atwood for h/o lymphoma. Last visit in 06/05/22, and all appeared stable. Physical Examination: BP (!) 144/74 (BP Cuff Location: Right arm, BP Cuff Sizes: Adult, regular) Pulse 68 Temp 36.3 ??C (97.3 ??F) Ht (!) 148.6 cm (58.5) Wt 46.4 kg (102 lb 3.2 oz) BMI 21.00 kg/m?? BACK: Mild thoracic kyphosis. Labs: Phlebotomy Only on 08/11/2022 Component Date Value Ref Range Status ??? Sodium 08/11/2022 139 136 - 145 mmol/L Final ??? Potassium 08/11/2022 4.8 3.5 - 5.0 mmol/L Final ??? Chloride 08/11/2022 103 96 - 110 mmol/L Final ??? CO2 Total 08/11/2022 29 22 - 32 mmol/L Final ??? Glucose 08/11/2022 98 70 - 100 mg/dL Final ??? BUN 08/11/2022 14 10 - 26 mg/dL Final ??? Creatinine 08/11/2022 0.57 0.52 - 1.04 mg/dL Final ? ? eGFR 08/11/2022 96 >60 mL/min/1.73m2 Final ??? Total Protein 08/11/2022 7.3 6.3 - 8.2 g/dL Final ??? Albumin 08/11/2022 4.7 3.4 - 4.9 g/dL Final ??? Alkaline Phosphatase 08/11/2022 65 38 - 126 U/L Final ??? AST 08/11/2022 26 15 - 46 U/L Final ? ? ALT 08/11/2022 20 <35 U/L Final ? ? Bilirubin, Total 08/11/2022 0.9 <1.4 mg/dL Final ??? Calcium 08/11/2022 9.6 8.5 - 10.5 mg/dL Final ??? Albumin/Globulin Ratio 08/11/2022 1.8 1.0 - 2.5 Final ??? Anion Gap 08/11/2022 7 5 - 14 Final ??? 25OH Vitamin D Tot 08/11/2022 44 30 - 100 ng/mL Final Assessment and Plan: 1. Age-related osteoporosis without current pathological fracture Because of loss of BMD at the spine, despite ibandronate x 5 years, had a dose of zoledronic acid last September. Will repeat zoledronic acid for early Dec this year, and then plan another DXA for next July 2023. - DXA BONE DENSITY; Future - BASIC METABOLIC PANEL (BMP); Future Follow up one year. Lin Grider MD 08/18/2022 9:45 * Olga Lu RN - 08/18/2022 0930 EDT Noted. No PA required. documented in this encounter Plan of Treatment Upcoming Encounters Date Type Department Care Team (Late st Contact Info) Description 08/10/2024 16:[address] [facility] MRI [address] [place], [place] [phone] 08/16/2024 14:[address] [facility] OBGYN Ultrasound [address] [place], [place] [address] 08/29/2024 14:[address] [facility] OBGYN [address] [place], [place] [phone] Ness Vilchis MD 130 [facility] [address] [place] [address] 08/31/2024 16:[address] [facility] Orthopedics & Sport Medicine [address] [place] [address] Reema Peoples, PA-C 13[address] [facility] [address] [place], [place] [phone] 09/01/2024 9:[address] [facility] Rheumatology [address] [place] [phone] Lin Grider MD [address] [place] [address] [address] [place] [address] 11/08/2024 14:[address] [facility] Adult Hematology & Oncology [address] [place] [phone] Luz Maria Peter, GABRIEL 130 [facility] [address] [place] [address] 11/22/2024 10:[address] [facility] Family Medicine - [place] [address] [place] [address] Clint Miramontes MD [address] [place] [phone] (work) documented as of this encounter Results * DXA BONE DENSITY (06/18/2023 14:46 EDT) Anatomical Region Laterality Modality DEXA Narrative 06/21/2023 19:42 EDT Table formatting from the original result was not included. Indication: osteopenia; monitoring treatment; height loss; history of glucocorticoids; cancer; asthma or emphysema; Accession number: [id number] Clinical Information Provided by Patient: Has taken [...] without current pathological fracture- Primary Senile osteoporosis Age-related osteoporosis without current pathological fracture Senile osteoporosis documented in this encounter Care Teams Senior Security Analyst Relationship Specialty Start Date End Date Clint Miramontes MD [address] [place] [phone] PCP - General 08/23/19 documented as of this encounter
--- OUTSIDE RECORDS SUMMARY | 2024-08-07 13:37 | XMS_ITS | Encounter Summary ---
Author Organization [facility] Address [address] [place] [address] Care Team Providers Care Inspecting And Testing Lead Hand Name Role Phone Clint Miramontes MD Primary Care Provider [phone] Encounter Details Date Type Department Care Team (Late st Contact Info) Description 08/11/2022 8:50 EDT Phlebotomy Only [facility] - Outpatient Phlebotomy Drawing [address] [place] [address] Lab, [facility] Op Phlebotomy High risk medication use; Postmenopausal osteoporosis Social History Tobacco Use Types Packs/Day Years [...] Appointment [facility] MRI [address] [place], [place] [address] 08/16/2024 14:00 EDT EMILIA [facility] OBGYN Ultrasound [address] [place] [address] 08/29/2024 14:00 EDT Office Visit [facility] OBGYN [address] [place] [address] Ness Vilchis MD [address] [place] [address], [address] [place] [phone] 08/31/2024 16:00 EDT Office Visit [facility] Orthopedics & Sport Medicine [address], [address] [place], [place] [phone] Reema ePoples PA-C [address] [facility] [address] [place], [place] [phone] 09/01/2024 9:30 EDT Office Visit [facility] Rheumatology [address] [place] [phone] Lin Grider MD [address] [place] [address] [address] [place] [address] 11/08/2024 14:00 EST Office Visit [facility] Adult Hematology & Oncology [address] [place] [address], [place] [phone] Luz Maria Peter NP [address] [place] [address] [address] [place] [address] 11/22/2024 10:15 EST Office Visit [facility] Family Medicine - [place] [address] [place] [address] Clint Miramontes MD [address] [place] [phone] documented as of this encounter Procedures Procedure Name Priority Date/Time Associated Diagnosis Comments VITAMIN D (25,OH) Routine 08/11/2022 8:5 5 EDT High risk medication use Postmenopausal osteoporosis COMPREHENSIVE METABOLIC PANEL (CMP) Routine 08/11/2022 8:55 EDT High risk medication use Postmenopausal osteoporosis documented in this encounter Results * VITAMIN D (25,OH) (08/11/2022 8:55 EDT) Pathologist [facility] 25OH Vitamin D Tot 44 30 - 100 ng/mL 08/11/2022 10:49 EDT [facility] Blood VENOUS BLOOD / Unknown Venipuncture / Unknown 08/11/2022 8:55 EDT 08/11/2022 9:40 EDT Lin Grider MD CHEMISTRY & BLOOD GA S ORDERABLES Performing Organization Address City/State/[facility] [[email or web address]] Co de Phone Number [facility] [address] [place] [address] * COMPREHENSIVE METABOLIC PANEL (CMP) (08/11/2022 8:55 EDT) Pathologist [facility] Sodium 139 136 - 145 mmol/L 08/11/2022 10:28 EDT [facility] Potassium 4.8 3.5 - 5.0 mmol/L 08/11/2022 10:28 EDT [facility] Chloride 103 96 - 110 mmol/L 08/11/2022 10:28 EDT [facility] CO2 Total 29 22 - 32 mmol/L 08/11[facility]2022 10[facility] Glucose 98 70 - 100 mg/dL 08/11/2022 10:[facility] BUN 14 10 - 26 mg/dL 08/11/2022 10:28 [facility] Creatinine 0.57 0.52 - 1.04 mg/dL 08/11/2022 10:28 [facility] eGFR 96 >60 mL/min/1.7 3m2 08/11/2022 10:28 [facility] Total Protein 7.3 6.3 - 8.2 g/dL 08/11/2022 10:28 [facility] Albumin 4.7 3.4 - 4.9 g/dL 08/11/2022 10:28 [facility] Alkaline Phosphatase 65 38 - 126 U/L 08/11/2022 10:28 [facility] AST 26 15 - 46 U/L 08/11/2022 10:28 [facility] ALT 20 <35 U/L 08/11/2022 10:28 [facility] Bilirubin, Total 0.9 <1.4 mg/dL 08/11/20 10:28 [facility] Calcium 9.6 8.5 - 10.5 mg/dL 08/11/2022 10:28 [facility] Albumin/Globulin Ratio 1.8 1.0 - 2.5 08/11/2022 10:28 [facility] Anion Gap 7 5 - 14 08/11/2022 10:28 [facility] Blood VENOUS BLOOD / Unknown Venipuncture / Unknown 08/11/2022 8:55 EDT 08/11/2022 9:40 EDT Lin Grider MD CHEMISTRY & BLOOD GA S ORDERABLES [facility] [address] [place] [address] documented in this encounter Visit Diagnoses Diagnosis High risk medication use Encounter for long-term (current) use of other medications Postmenopausal osteoporosis Senile osteoporosis documented in this encounter Care Teams Inspecting And Testing Lead Hand Relationship Specialty Start Date End Date Clint Miramontes MD [address] [place] [phone] PCP - General 08/23/19 documented as of this encounter
--- OUTSIDE RECORDS SUMMARY | 2024-08-07 13:37 | XMS_ITS | Encounter Summary ---
Author Organization [facility] Address [address] [place] [address] Care Team Providers Care Record Label Internship Name Role Phone Clint Miramontes MD Primary Care Provider [phone] Reason for Referral * Radiology Services (Routine/Next Available) - Authorization Not Required Specialty Diagnoses / Procedures Referred By Annia t Referred To Contact Diagnoses Acute pain of left knee Procedures XR KNEE LEFT 3 VIEWS Corina Edwards PA-C [address] [place] [address] [facility] [address] [place] [address] Referral ID Status Reason Start Date Expiration Date Visits Requested Visits Authorized [id number] Authorization Not Required 01/23/2023 1 1 Reason for Visit * Reason Comments Leg Pain LT Encounter Details Date Type Department Care Team (Late Contact Info) Description 01/23/2023 15:00 EDT Office Visit [facility] Family Medicine - [place] [address] [place] [address] Corina Edwards PA-C [address] [place] [phone] Acute pain of left knee (Primary Dx) Social History [...] Sign Reading Time Taken Comments Blood Pressure 140/70 01/23/2023 1511 EDT Pulse 86 01/23/2023 1511 EDT Temperature 36.5 ??C (97.7 ??F) 01/23/2023 1511 EDT Respiratory Rate - - Oxygen Saturation 96% 01/23/2023 1511 EDT Inhaled Oxygen Concentration - - Weight 47.4 kg (104 lb 6.4 oz) 01/23/2023 1511 E DT Height - - Body Mass Index 21.45 08/18/2022 0938 EDT documented in this encounter [...] as of this encounter Progress Notes * Cori Camargo, RN - 01/23/2023 1500 EDT Patient is here for concerns of LT Leg pain. Onset: Thursday. Patient stated she had a missed step that caused her to hit a wall with LT knee and shoulder as shewas going down the stairs inside her home. Incident. 12/2022 Pain at visit 6/10 pain scale. See TE 01/23/23 * Corina Edwards PA-C - 01/23/2023 1500 EDT Subjective: Patient ID: Mel Ramirez is an 72 y.o. female. Chief Complaint Patient presents with ??? Leg Pain LT HPI Patient presents today with left knee pain that started last week. She describes pain as achy. She denies any injury to the left knee. 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 She has noticed some swelling of her left knee. She tellsme that she is usually able to stretch her quads by flexing her knee behind her however her left knee pain and swelling has not allowed her to flex her knee past 90 degrees. She denies any numbness, tingling, weakness, instability, warmth, redness, bruising, shortness of breath, palpitations, lowerleg swelling, dizziness, or chest pain. Patient Active Problem List Diagnosis ??? Cerebral [...] marginal ??? Chronic obstructive pulmonary disease (HCC-CMS) (HCC) 10/06/2019 ??? Coil insertion 06/2010 PCOM aneurysm [...] Take 2,000 Units by mouth daily. ??? diazePAM (VALIUM) 2 mg tablet 1 tab PO bid PRN fying. 6 Tablet 3 ??? fluticasone propionate (FLOVENT HFA) 110 mcg/actuation [...] capsule Take 1 Capsule by mouth daily. No current facility-administered medications on file prior to visit. Allergies Allergen Reactions ??? Crestor [Rosuvastatin] Rash ??? Other - See Comments Wasp stings- swollen local reactions ??? Pravastatin Rash Social Social History Tobacco Use ??? Smoking status: Former Packs/day: 1.00 Types: Cigarettes Start date: 1963 Quit date: 07/03/1982 Years since quittin.5 ??? Smokeless tobacco: Never ??? Tobacco comments: 1981 quit Vaping Use ??? Vaping Use: Former ??? Substances: THC ??? Devices: Pre-filled or refillable cartridge Substance Use Topics ??? Alcohol use: No ??? Drug use: Yes Frequency: 5.0 times per week Types: Marijuana Comment: smokes and does edibles ROS - See HPI Objective: BP 140/70 Pulse 86 Temp 36.5 ??C (97.7 ??F) (Oral) Wt 47.4 kg (104 lb 6.4 oz) SpO2 96% BMI 21.45 kg/m?? Physical Exam GENERAL: alert, comfortable, NAD, non-toxic appearing SKIN: no rashes/lesions on examined skin, non-diaphoretic CV: regular rate and rhythm, no murmus/rubs/gallops noted, no carotid bruits noted PULM: normal rate, unlabored breathing, clear to auscultation bilaterally PV: no LE edema noted bilaterally MSK: Left knee: Edema noted of the medial knee. No tenderness to palpation throughout the left knee, IT band or patellar tendon. No erythema or ecchymosis noted. No warmth. Knee flexion is limited due to pain and edema. No crepitus noted. Knee extension WNL. Strength of the left knee and foot: 5/5.Sensation in tact. Negative valgus, varus, Kevin's, anterior and posterior drawer. Assessment & Plan: Mel was seen today for leg pain. Diagnoses and all orders for this visit: Acute pain of left knee - XR KNEE LEFT 3 VIEWS; Future Patient presents today with left knee pain and swelling since last week. 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 On exam there is some edema of the medial left knee. Range of motion of the left knee in flexion is limited due to pain and edema. Counseled patient on rest, compression, ice and elevation. Tylenol as needed for pain. XRAY ordered. ED precautions discussed with patient, she is agreeable to plan. I spent a total of 20 minutes on the date of this encounter meeting with the patient and reviewing documentation/coordinating care as described in the above note. No procedures were performed at the time of the visit. Return if symptoms worsen or fail to improve. documented in this encounter Plan of Treatment Upcoming Encounters Date Type Department Care Team (Late st Contact Info) Description 08/10/2024 16:00 EDT Appointment [facility] MRI [address] [place] [address] 08/16/2024 14:00 EDT EMILIA [facility] OBGYN Ultrasound [address] [place] [address] 08/29/2024 14:00 EDT Office Visit [facility] OBGYN [address] [place], [place] [phone] Ness Vilchis MD [address] [facility], [address] [place] [address] 08/31/2024 16:00 EDT Office Visit [facility] Orthopedics & Sport Medicine [address] [place] [address] Reema Peoples PA-C [address] [facility] [address] [place], [place] [phone] 09/01/2024 9:30 EDT Office Visit [facility] Rheumatology [address] [place], [place] [phone] Lin Grider MD [address] [facility] [address] [place] [address] 11/08/2024 14:00 EST Office Visit [facility] Adult Hematology & Oncology [facility] [place] [address] Luz Maria Peter, GABRIEL [address] [facility] [address] [place] [address] 11/22/2024 10:15 EST Office Visit [facility] Family Medicine - [place] [address] [place] [address] Clint Miramontes MD [address] [place] [phone] documented as of this encounter Results * XR KNEE LEFT 3 VIEWS (01/23/2023 16:50 EDT) Anatomical Region Laterality Modality Lower Extremities Left Computed Radio graphy 01/23/2023 16:2 3 EDT Impressions 01/24/2023 10:30 EDT Mild degenerative changes of the knee. THIS DOCUMENT HAS BEEN ELECTRONICALLY SIGNED BY JENNIFER LEPE MD FOR ANY QUESTIONS OR CONCERNS REGARDING THIS REPORT PLEASE CALL [facility] AT [phone] Narrative 01/24/2023 10:30 EDT PROCEDURE INFORMATION: Exam: XR Left Knee Exam date and time: 01/23/2023 4:23 PM Age: 72 years old Clinical indication: Pain in left knee; Additional info: Left knee pain, swelling TECHNIQUE: Imaging protocol: Radiologic exam of the left knee. Views: 3 views. COMPARISON: No relevant prior studies available. FINDINGS: Bones/joints: No acute fracture. No dislocation. There is a small suprapatellar joint effusion. Mild degenerative changes of the knee. Soft tissues: There is possible mild soft tissue swelling about the knee. ??A punctate hyperdensity is seen within the soft tissues of the anterior distal thigh, possible small foreign body or artifact. ??A small soft tissue calcification is seen anterior to the distal femur Procedure Note Jennifer Lepe MD - 01/24/2023 PROCEDURE INFORMATION: Exam: XR Left Knee Exam date and time: 01/23/2023 4:23 PM Age: 72 years old Clinical indication: Pain in left knee; Additional info: Left knee pain, swelling TECHNIQUE: Imaging protocol: Radiologic exam of the left knee. Views: 3 views. COMPARISON: No relevant prior studies available. FINDINGS: Bones/joints: No acute fracture. No dislocation. There is a small suprapatellar joint effusion. Mild degenerative changes of the knee. Soft tissues: There is possible mild soft tissue swelling about the knee. A punctate hyperdensity is seen within the soft tissues of the anterior distal thigh, possible small foreign body or artifact. A small soft tissue calcification is seen anterior to the distal femur IMPRESSION Mild degenerative changes of the knee. THIS DOCUMENT HAS BEEN ELECTRONICALLY SIGNED BY JENNIFER LEPE MD FOR ANY QUESTIONS OR CONCERNS REGARDING THIS REPORT PLEASE CALL [facility] [phone] Corina Edwards PA-C IMG DIAGNOSTI C IMAGING ORDERABLES documented in this encounter Visit Diagnoses Diagnosis Acute pain of left knee- Primary Acute pain of left knee documented in this encounter Care Teams Record Label Internship Relationship Specialty Start Date End Date Clint Miramontes MD [address] [place] [phone] PCP - General 08/23/19 documented as of this encounter
--- OUTSIDE RECORDS SUMMARY | 2024-08-07 13:37 | XMS_ITS | Encounter Summary ---
Author Organization [facility] Address [address] [place] [address] Care Team Providers Care Industrial Hygienist Name Role Phone Clint Miramontes MD Primary Care Provider [phone] Reason for Visit * Reason Onset Date Comments Appointment Related 06/16/2022 08.18.2022 Labs Only 06/16/2022 Encounter Details Date Type Department Care Team (Late st Contact Info) Description 06/16/2022 Telephone [facility] Rheumatology [address] [place] [address] Lin Grider MD [address] [facility] [address] [place] [phone] Appointment Related (08.18.2022); Labs Only Social History Tobacco Use Types [...] encounter Miscellaneous Notes * Telephone Encounter - Olga Lu RN - 06/16/2022 1342 EDT Lab orders placed as noted in last visit note. * Telephone Encounter - Zeynep Mann - 06/16/2022 1324 EDT Reason for Call: Appointment Related (08.18.2022) and Labs Only Summary/Symptoms: Per patient, please place lab order in system. Per patient, plans on having labs done the week prior to the 08.18.[address] Grider Please call the patient with any questions/concerns Zeynep Mann 06/16/2022 13:24 documented in this encounter Plan of Treatment Upcoming Encounters Date Type Department Care Team (Late st Contact Info) Description 08/10/2024 16:00 EDT Appointment [facility] MRI [address] [place] [address] 08/16/2024 14:00 EDT EMILIA [facility] OBGYN Ultrasound [address] [place], [place] [phone] 08/29/2024 14:00 EDT Office Visit [facility] OBGYN [address] [place] [address] Ness Vilchis MD [address] [facility] [place] [address] 08/31/2024 16:00 EDT Office Visit [facility] Orthopedics & Sport Medicine [address] [place] [address] Reema Peoples PA-C [address] [facility] [address] [place], [place] [phone] 09/01/2024 9:30 EDT Office Visit [facility] Rheumatology [address] [place], [place] [phone] Lin Grider MD [address] [facility] [address] [place] [address] 11/08/2024 14:00 EST Office Visit [facility] Adult Hematology & Oncology [address] [place] [address] Luz Maria Peter NP [address] [facility] [address] [place] [address] 11/22/2024 10:15 EST Office Visit [facility] Family Medicine - [place] [address] [place] [address] Clint Miramontes MD [address] [place] [phone] documented as of this encounter Results * VITAMIN D (25,OH) (08/11/2022 8:55 EDT) 25OH Vitamin D Tot 44 30 - 100 ng/mL 08/11/2022 10:49 EDT [facility] Blood VENOUS BLOOD / Unknown Venipuncture / Unknown 08/11/2022 8:55 EDT 08/11/2022 9:40 EDT Lin Grider MD CHEMISTRY & BLOOD GA S ORDERABLES [facility] [address] [place] [address] * COMPREHENSIVE METABOLIC PANEL (CMP) (08/11/2022 8:55 EDT) Sodium 139 136 - 145 mmol/L 08/11/2022 10:28 [facility] Potassium 4.8 3.5 - 5.0 mmol/L 08/11/2022 10:28 [facility] Chloride 103 96 - 110 mmol/L 08/11/2022 10:28 [facility] CO2 Total 29 22 - 32 mmol/L 08/11/2022 10:28 [facility] Glucose 98 70 - 100 mg/dL 08/11/2022 10:28 [facility] BUN 14 10 - 26 mg/dL 08/11/2022 10:28 [facility] Creatinine 0.57 0.52 - 1.04 mg/dL 08/11/2022 10:28 [facility] eGFR 96 >60 mL/min/1.7 3m2 08/11/2022 10:28 [facility] Total Protein 7.3 6.3 - 8.2 g/dL 08/11/2022 10:28 [facility] Albumin 4.7 3.4 - 4.9 g/dL 08/11/2022 10:28 [facility] Alkaline Phosphatase 65 38 - 126 U/L 08/11/2022 10:28 [facility] AST 26 15 - 46 U/L 08/11/2022 10:28 [facility] ALT 20 <35 U/L 08/11/2022 10:28 [facility] Bilirubin, Total 0.9 <1.4 mg/dL 08/11/20 10:28 [facility] Calcium 9.6 8.5 - 10.5 mg/dL 08/11/2022 10:28 [facility] Albumin/Globulin Ratio 1.8 1.0 - 2.5 08/11/2022 10:28 [facility] Anion Gap 7 5 - 14 08/11/2022 10:28 [facility] Blood VENOUS BLOOD / Unknown Venipuncture / Unknown 08/11/2022 8:55 EDT 08/11/2022 9:40 EDT Lin Grider MD CHEMISTRY & BLOOD GA S ORDERABLES [facility] [address] [place] [address] documented in this encounter Visit Diagnoses Diagnosis High risk medication use- Primary Encounter for long-term (current) use of other medications Postmenopausal osteoporosis Senile osteoporosis documented in this encounter Care Teams Industrial Hygienist Relationship Specialty Start Date End Date Clint Miramontes MD [address] [place] [phone] PCP - General 08/23/19 documented as of this encounter
--- OUTSIDE RECORDS SUMMARY | 2024-08-07 13:37 | XMS_ITS | Encounter Summary ---
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) Procedures [place] [address] [place] [address] Phone: Fax: [facility] Referral ID Status Reason Start Date Expiration Date V isits Requested Visits Authorized [id number] Specialty Report Received 04/30/2022 06/28/2022 1 1 * Radiology Services (Routine/Next Available) - Specialty Report Received Specialty Diagnoses / Procedures Referred By Annia gan Referred To Contact Diagnoses 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 ([facility]) Procedures CT SOFT [place] [address] [place] [address] Phone: Fax: [facility] Referral ID Status Reason Start Date Expiration Date V isits Requested Visits Authorized [id number] Specialty Report Received 04/30/2022 06/28/2022 1 1 * Radiology Services (Routine/Next Available) - Specialty Report Received Specialty Diagnoses / Procedures Referred By Annia gan Referred To Contact Diagnoses 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) Procedures CT ABDOMEN [place] [address] [place] [address] Phone: Fax: [facility] Referral ID Status Reason Start Date Expiration Date V isits Requested Visits Authorized [id number] Specialty Report Received 04/30/2022 06/28/2022 1 1 Reason for Visit * Auth/Cert Specialty Diagnoses / Procedures Referred By Annia gan Referred To Contact Referral ID Status Reason Start Date Expiration Date Visits Re quested Visits Authorized [id number] 1 1 Encounter Details Date Type Department Care Team (Latest Contact Info) Description 05/27/2022 8:21 EDT - 05/27/2022 23:[address] 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 inhalational spacing device (E-Z SPACER) Inhale 1 Device as directed 2 times daily. For use with Flovent inhaler. Dx: J44.9. 1 Device 01/20/2020 albuterol sulfate 90 mcg/actuation aero powdr breath act w/sensor Inhale 1 Puff as directed 6 times daily. 1 Each 3 04/21/2022 05/19/2024 aspirin 325 mg tablet Take 1 Tab by mouth daily. 06/04/2010 06/05/2022 diazePAM (VALIUM) 2 mg tablet 1 tab PO bid PRN fying. 6 Tablet 3 11/21/2021 04/03/2023 fluticasone propionate (FLOVENT HFA) 110 mcg/actuation inhaler Inhale 2 Puffs as directed every 12 hours. 18 g 3 04/21/2022 05/07/2023 LORazepam (ATIVAN) 1 mg tablet Take 1 Tablet by mouth at bedtime as needed for Anxiety. Daily Max: 1 mg 30 Tablet 3 04/21/2022 08/15/2022 lovastatin (MEVACOR) 40 mg tablet Take 2 Tablets by mouth daily. 180 Tablet 3 06/13/2021 07/17/2022 documented as of this encounter Discharge Disposition Disposition Code Departure Means Destination Home or Self Care documented in this encounter Plan of Treatment Upcoming Encounters Date Type Department Care Team (Late st Contact Info) Description 08/10/2024 16:[address] [facility] MRI [address] [place] [phone] 08/16/2024 14:[address] [facility] OBGYN Ultrasound [address] [place], [place] [phone] 08/29/2024 14:[address] [facility] OBGYN [address] [place] [address] Ness Vilchis MD [address] [place] [address]A, [address] [place] [phone] 08/31/2024 16:[address] [facility] Orthopedics & Sport Medicine [address] [place], [place] [address] Reema Peoples PA-C [address] [facility] [address] [place], [place] [id number] 09/01/2024 9:[address] [facility] Rheumatology [address] [facility], [place] [id number] Lin Grider MD [address] [facility] [address] [place] [address] 11/08/2024 14:[address] [facility] Adult Hematology & Oncology [address] [place] [address], [place] [id number] Luz Maria Peter, GABRIEL [address] [facility], [facility] [address] [place] [address] 11/22/2024 10:[address] 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 No pathologically enlarged lymph nodes. 2. No acute abnormality. Narrative 05/27/2022 14:56 EDT INDICATION: staging lymphoma. Weight loss and weakness. COMPARISON: CT scan of the abdomen and pelvis 07/05/[address] scan of the chest 05/24/2015. TECHNIQUE: CT scan of the chest, abdomen and pelvis was performed with nonionic IV contrast. 100 mL of Omnipaque 350 was utilized. Axial images and multiplanar reformations were reviewed. FINDINGS: Chest CT: Lower neck: No mass or lymphadenopathy. Chest wall soft tissues: No axillary lymphadenopathy or chest wall mass. Mediastinum and shalonda: No pathologically enlarged lymph nodes or other mediastinal mass. Heart and aorta: Mild coronary artery calcification. No aortic aneurysm or dissection. Lungs: Scattered tiny calcified pulmonary granulomas, unchanged. Minimal dependent atelectasis and/or scar in the lung bases. No pulmonary consolidation. Pleura: No pleural effusion, mass or pneumothorax. Musculoskeletal: Degenerative spondylosis of the thoracic spine. No fracture or suspicious bone lesion. Abdomen/pelvis CT: Liver: Unremarkable. No hepatic mass or intrahepatic duct dilatation. Gallbladder: No calcified stones, wall abnormality or pericholecystic fluid. Normal caliber common bile duct. Pancreas: 5 mm low-density lesion within the body the pancreas is unchanged compared to numerous prior studies dating back to 2011 consistent with tiny cyst or other benign lesion. Mild dilatation of the pancreatic duct within the head and neck measuring up to 4 mm is unchanged. Spleen: Normal. No splenomegaly or mass. Adrenal glands: Normal. Kidneys and ureters: Right renal cyst, unchanged. Normal left kidney. Normal ureters. No renal stone or hydronephrosis. Urinary bladder: Unremarkable. Reproductive: Calcified uterine fibroids. 2 cm cyst in the left ovary, unchanged. No additional routine follow-up imaging is recommended. Normal right adnexa. Gastrointestinal: The stomach, small bowel and colon are normal. Appendix: No evidence of appendicitis. Peritoneal cavity: No ascites or free intraperitoneal air. Lymph nodes: No pathologically enlarged lymph nodes. Vessels: No significant atherosclerosis or abdominal aortic aneurysm. Abdominal wall: Unremarkable. No hernia or abdominal wall mass. Musculoskeletal: Degenerative spondylosis of the lumbar spine. No acute fracture or suspicious bone lesion. 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 Procedure Note Bharath Patel MD - 05/27/2022 INDICATION: staging lymphoma. Weight loss and weakness. COMPARISON: CT scan of the abdomen and pelvis 07/05/[address] scan of thechest 05/24/2015. TECHNIQUE: CT scan of the chest, abdomen and pelvis was performed withnonionic IV contrast. 100 mL of Omnipaque 350 was utilized. Axial imagesand multiplanar reformations were reviewed. FINDINGS: Chest CT: Lower neck: No mass or lymphadenopathy. Chest wall soft tissues: No axillary lymphadenopathy or chest wall mass. Mediastinum and shalonda: No pathologically enlarged lymph nodes or othermediastinal mass. Heart and aorta: Mild coronary artery calcification. No aortic aneurysm ordissection. Lungs: Scattered tiny calcified pulmonary granulomas, unchanged. Minimaldependent atelectasis and/or scar in the lung bases. No pulmonaryconsolidation. Pleura: No pleural effusion, mass or pneumothorax. Musculoskeletal: Degenerative spondylosis of the thoracic spine. Nofracture or suspicious bone lesion. Abdomen/pelvis CT: Liver: Unremarkable. No hepatic mass or intrahepatic duct dilatation. Gallbladder: No calcified stones, wall abnormality or pericholecysticfluid. Normal caliber common bile duct. Pancreas: 5 mm low-density lesion within the body the pancreas isunchanged compared to numerous prior studies dating back to 2011consistent with tiny cyst or other benign lesion. Mild dilatation of thepancreatic duct within the head and neck measuring up to 4 mm isunchanged. Spleen: Normal. No splenomegaly or mass. Adrenal glands: Normal. Kidneys and ureters: Right renal cyst, unchanged. Normal left kidney.Normal ureters. No renal stone or hydronephrosis. Urinary bladder: Unremarkable. Reproductive: Calcified uterine fibroids. 2 cm cyst in the left ovary,unchanged. No additional routine follow-up imaging is recommended. Normalright adnexa. Gastrointestinal: The stomach, small bowel and colon are normal. Appendix: No evidence of appendicitis. Peritoneal cavity: No ascites or free intraperitoneal air. Lymph nodes: No pathologically enlarged lymph nodes. Vessels: No significant atherosclerosis or abdominal aortic aneurysm. Abdominal wall: Unremarkable. No hernia or abdominal wall mass. Musculoskeletal: Degenerative spondylosis of the lumbar spine. No acutefracture or suspicious bone lesion. Chronic pars defect at L5 on theleft. IMPRESSION 1. No pathologically enlarged lymph nodes. 2. No acute abnormality. Sheyla Atwood MD IMG CT ORDERABLES * CT SOFT TISSUE NECK W CONTRAST (05/27/2022 8:58 EDT) Anatomical Region Laterality Modality Neck Computed Tomogra phy 05/27/2022 14:2 5 EDT Impressions 05/27/2022 14:25 EDT No pathologically enlarged lymph nodes or acute abnormality identified. Narrative 05/27/2022 14:25 EDT EXAM: CT NECK W CONTRAST HISTORY: staging lymphoma. Weight loss and weakness. TECHNIQUE: CT neck with intravenous contrast was performed. 100 mL of Omnipaque 350 was utilized. Axial images and multiplanar reformations were reviewed. COMPARISON: Contrast-enhanced CT scan of the neck 05/15/2010. FINDINGS: Aerodigestive Tract: Normal. Lymph Nodes: No pathologically enlarged lymph nodes identified. Parotid Glands: Normal parotid glands. Submandibular Glands: Normal submandibular glands. Thyroid: Normal thyroid. Vessels: Allowing for non-angiographic technique, the major vascular structures are unremarkable. 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 Paranasal Sinuses/Mastoid Air Cells: Predominantly clear. No fluid levels. Bones:There is mild scoliosis and moderate severe degenerative spondylosis of the cervical spine. No severe bony spinal stenosis is present. No acute fracture or suspicious bone lesion is identified. Lung Apices: Calcified granuloma within the right lung apex. Procedure Note Bharath Patel MD - 05/27/2022 EXAM: CT NECK W CONTRAST HISTORY: staging lymphoma. Weight loss and weakness. TECHNIQUE: CT neck with intravenous contrast was performed. 100 mL ofOmnipaque 350 was utilized. Axial images and multiplanar reformations werereviewed. COMPARISON: Contrast-enhanced CT scan of the neck 05/15/2010. FINDINGS: Aerodigestive Tract: Normal. Lymph Nodes: No pathologically enlarged lymph nodes identified. Parotid Glands: Normal parotid glands. Submandibular Glands: Normal submandibular glands. Thyroid: Normal thyroid. Vessels: Allowing for non-angiographic technique, the major vascularstructures are unremarkable. Visible Intracranial Contents: There is an aneurysm clip in the region ofthe right supraclinoid ICA which obscures visualization of the [place] and basilar portions of the brain. Paranasal Sinuses/Mastoid Air Cells: Predominantly clear. No fluidlevels. Bones:There is mild scoliosis and moderate severe degenerative spondylosisof the cervical spine. No severe bony spinal stenosis is present. No acutefracture or suspicious bone lesion is identified. Lung Apices: Calcified granuloma within the right lung apex. IMPRESSION No pathologically enlarged lymph nodes or acute abnormality identified. Sheyla Atwood MD IMG CT ORDERABLES * CT ABDOMEN PELVIS W CONTRAST (05/27/2022 8:58 EDT) Anatomical Region Laterality Modality Body, Abdomen, Pelvis, Abdomen and Pelvis Computed Tomography 05/27/2022 14:5 6 EDT Impressions 05/27/2022 14:56 EDT 1. No pathologically enlarged lymph nodes. 2. No acute abnormality. Narrative 05/27/2022 14:56 EDT INDICATION: staging lymphoma. Weight loss and weakness. COMPARISON: CT scan of the abdomen and pelvis 07/05/[address] scan of the chest 05/24/2015. TECHNIQUE: CT scan of the chest, abdomen and pelvis was performed with nonionic IV contrast. 100 mL of Omnipaque 350 was utilized. Axial images and multiplanar reformations were reviewed. FINDINGS: Chest CT: Lower neck: No mass or lymphadenopathy. Chest wall soft tissues: No axillary lymphadenopathy or chest wall mass. Mediastinum and shalonda: No pathologically enlarged lymph nodes or other mediastinal mass. Heart and aorta: Mild coronary artery calcification. No aortic aneurysm or dissection. Lungs: Scattered tiny calcified pulmonary granulomas, unchanged. Minimal dependent atelectasis and/or scar in the lung bases. No pulmonary consolidation. Pleura: No pleural effusion, mass or pneumothorax. Musculoskeletal: Degenerative spondylosis of the thoracic spine. No fracture or suspicious bone lesion. Abdomen/pelvis CT: Liver: Unremarkable. No hepatic mass or intrahepatic duct dilatation. Gallbladder: No calcified stones, wall abnormality or pericholecystic fluid. Normal caliber common bile duct. Pancreas: 5 mm low-density lesion within the body the pancreas is unchanged compared to numerous prior studies dating back to 2010 consistent with tiny cyst or other benign lesion. Mild dilatation of the pancreatic duct within the head and neck measuring up to 4 mm is unchanged. Spleen: Normal. No splenomegaly or mass. Adrenal glands: Normal. Kidneys and ureters: Right renal cyst, unchanged. Normal left kidney. Normal ureters. No renal stone or hydronephrosis. Urinary bladder: Unremarkable. Reproductive: Calcified uterine fibroids. 2 cm cyst in the left ovary, unchanged. No additional routine follow-up imaging is recommended. Normal right adnexa. Gastrointestinal: The stomach, small bowel and colon are normal. Appendix: No evidence of appendicitis. Peritoneal cavity: No ascites or free intraperitoneal air. Lymph nodes: No pathologically enlarged lymph nodes. Vessels: No significant atherosclerosis or abdominal aortic aneurysm. Abdominal wall: Unremarkable. No hernia or abdominal wall mass. Musculoskeletal: Degenerative spondylosis of the lumbar spine. No acute fracture or suspicious bone lesion. 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 Procedure Note Bharath Patel MD - 05/27/2022 INDICATION: staging lymphoma. Weight loss and weakness. COMPARISON: CT scan of the abdomen and pelvis 07/05/[address] [facility] TECHNIQUE: CT scan of the chest, abdomen and pelvis was performed withnonionic IV contrast. 100 mL of Omnipaque 350 was utilized. Axial imagesand multiplanar reformations were reviewed. FINDINGS: Chest CT: Lower neck: No mass or lymphadenopathy. Chest wall soft tissues: No axillary lymphadenopathy or chest wall mass. Mediastinum and shalonda: No pathologically enlarged lymph nodes or othermediastinal mass. Heart and aorta: Mild coronary artery calcification. No aortic aneurysm ordissection. Lungs: Scattered tiny calcified pulmonary granulomas, unchanged. Minimaldependent atelectasis and/or scar in the lung bases. No pulmonaryconsolidation. Pleura: No pleural effusion, mass or pneumothorax. Musculoskeletal: Degenerative spondylosis of the thoracic spine. Nofracture or suspicious bone lesion. Abdomen/pelvis CT: Liver: Unremarkable. No hepatic mass or intrahepatic duct dilatation. Gallbladder: No calcified stones, wall abnormality or pericholecysticfluid. Normal caliber common bile duct. Pancreas: 5 mm low-density lesion within the body the pancreas isunchanged compared to numerous prior studies dating back to 2011consistent with tiny cyst or other benign lesion. Mild dilatation of thepancreatic duct within the head and neck measuring up to 4 mm isunchanged. Spleen: Normal. No splenomegaly or mass. Adrenal glands: Normal. Kidneys and ureters: Right renal cyst, unchanged. Normal left kidney.Normal ureters. No renal stone or hydronephrosis. Urinary bladder: Unremarkable. Reproductive: Calcified uterine fibroids. 2 cm cyst in the left ovary,unchanged. No additional routine follow-up imaging is recommended. Normalright adnexa. Gastrointestinal: The stomach, small bowel and colon are normal. Appendix: No evidence of appendicitis. Peritoneal cavity: No ascites or free intraperitoneal air. Lymph nodes: No pathologically enlarged lymph nodes. Vessels: No significant atherosclerosis or abdominal aortic aneurysm. Abdominal wall: Unremarkable. No hernia or abdominal wall mass. Musculoskeletal: Degenerative spondylosis of the lumbar spine. No acutefracture or suspicious bone lesion. Chronic pars defect at L5 on theleft. IMPRESSION 1. No pathologically enlarged lymph nodes. 2. No acute abnormality. 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) documented in this encounter Administered Medications Inactive Administered Medications - up to 3 most recent administrations Medication Order MAR Action Action Date Dose Rate Site iohexoL (OMNIPAQUE 350) solution 100 mL 100 mL, intravenous, Once in imaging, 1 dose, Starting on 05/27/22 at 0826, Until 05/27/22 at 0858, Routine, Imaging Protocol Orders Given 05/27/2022 8:58 EDT 100 mL documented in this encounter Care Teams Fiber Optic Splicer Relationship Specialty Start Date End Date Clint Miramontes MD [address] [place] [phone] PCP - General 08/23/19 documented as of this encounter
--- OUTSIDE RECORDS SUMMARY | 2024-08-07 13:37 | XMS_ITS | Encounter Summary ---
Author Organization [facility] Address [address] [place] [id number] Care Team Providers Care Treasury Accountant Name Role Phone Clint Miramontes MD Primary Care Provider [phone] Reason for Visit * Reason Comments Follow-up Encounter Details Date Type Department Care Team (Late st Contact Info) Description 06/05/2022 15:30 EDT Office Visit [facility] Adult Hematology & Oncology [address] [place] [address] [place] [address] [facility] [address] [place] [address] (Fax) 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) (HCC) (HCC-CMS) (Primary Dx) Social History Tobacco Use Types [...] Sign Reading Time Taken Comments Blood Pressure 124/80 06/05/2022 1530 EDT Pulse 73 06/05/2022 1530 EDT Temperature - - Respiratory Rate - - Oxygen Saturation 97% 06/05/2022 1530 EDT Inhaled Oxygen Concentration - - Weight 44.9 kg (99 lb) 06/05/2022 1530 EDT Height - - Body Mass Index 21.36 04/21/2022 1608 EDT documented in this encounter Functional Status [...] as of this encounter Progress Notes * Sheyla Atwood MD - 06/05/2022 1530 EDT Patient Active Problem List Diagnosis ??? 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 Clinical stage IIIa disease with numerous small lymph nodes above and below the diaphragm. No treatment at this time. Subjective Interim History: Mel comes in for follow-up. States that she is eating better and has gained a few pounds. She made it a point to eat more often. Does not have much appetite during the day but good for dinner. Continues to deny any drenching night sweats, abdominal pain or early satiety. She had CT scans in the interim. Review of Systems: Review of Systems Constitutional: Negative for chills and fever. HENT: Negative for ear pain, sinus pain and sore throat. Eyes: Negative for pain and discharge. Respiratory: Negative for cough, hemoptysis and shortness of breath. Cardiovascular: Negative for chest pain and palpitations. Gastrointestinal: Negative for diarrhea, nausea and vomiting. Genitourinary: Negative for dysuria and urgency. Musculoskeletal: Negative for back pain. Skin: Negative. Neurological: Negative for dizziness, speech change and headaches. Endo/Heme/Allergies: Negative. Psychiatric/Behavioral: Negative for depression. Social History Tobacco Use ??? Smoking status: Former Smoker Packs/day: 1.00 Start date: 1964 Quit date: 07/03/1982 Years since quittin.9 ??? Smokeless tobacco: Never Used ??? Tobacco comment: 1981 quit Vaping Use ??? Vaping Use: Former ??? Substances: THC ??? Devices: Pre-filled or refillable cartridge Substance Use Topics ??? Alcohol use: No ??? Drug use: Yes Frequency: 5.0 times per week Types: Marijuana Comment: smokes and does edibles Current Outpatient Medications Medication Sig Dispense Refill Last Dose ??? albuterol sulfate 90 mcg/actuation aero powdr breath act w/sensor Inhale 1 Puff as directed 6 times daily. (Patient taking differently: Inhale 1 Puff as directed 6 times daily. As needed) 1 Each 3 Taking ??? cholecalciferol, Vitamin D3, (VITAMIN D) 1,000 unit tablet Take 2,000 Units by mouth daily. Taking ??? diazePAM (VALIUM) 2 mg tablet 1 tab PO bid PRN fying. (Patient taking differently: 1 tab PO bidPRN flying.) 6 Tablet 3 Taking ??? fluticasone propionate (FLOVENT HFA) 110 mcg/actuation inhaler Inhale 2 Puffs as directed every12 hours. 18 g 3 Taking ??? inhalational spacing device (E-Z SPACER) Inhale 1 Device as directed 2 times daily. For use with Flovent inhaler. Dx: J44.9. 1 Device 0 Taking ??? LORazepam (ATIVAN) 1 mg tablet Take 1 Tablet by mouth at bedtime as needed for Anxiety. Daily Max: 1 mg (Patient taking differently: Take 1 mg by mouth at bedtime as needed for Anxiety. Taking every night) 30 Tablet 3 Taking ??? lovastatin (MEVACOR) 40 mg tablet Take 2 Tablets by mouth daily. 180 Tablet 3 Taking No current facility-administered medications for this visit. Vitals: 06/05/22 1530 BP: 124/80 Pulse: 73 SpO2: 97% Weight: (!) 44.9 kg (99 lb) Wt Readings from Last 3 Encounters: 06/05/22 (!) 44.9 kg (99 lb) 04/30/22 (!) 44.1 kg (97 lb 3.2 oz) 04/21/22 (!) 43.3 kg (95 lb 8 oz) Physical Exam: Physical Exam Constitutional: She is oriented to person, place, and time. HENT: Head: Normocephalic and atraumatic. Eyes: EOM are normal. Cardiovascular: Regular rhythm. Pulmonary/Chest: Effort normal and breath sounds normal. Abdominal: Soft. There is no abdominal tenderness. Musculoskeletal: Cervical back: Normal range of motion and neck supple. Lymphadenopathy: She has no cervical adenopathy. She has no axillary adenopathy. No inguinal adenopathy noted on the right or left side. Right: No supraclavicular adenopathy present. Left: No supraclavicular adenopathy present. Neurological: She is alert and oriented to person, place, and time. Skin: Skin is warm and dry. She is not diaphoretic. Psychiatric: She has a normal mood and affect. Assessment & Plan Marginal zone lymphoma. Discussed CT findings with the patient. Showed no evidence of any lymphadenopathy or other abnormalities. Recent CBC, vitamin B12, LDH and ferritin levels were normal. Plan: 1. Return for follow-up in 3 months. No orders of the defined types were placed in this encounter. Sheyla Atwood MD Hematology/Oncology [facility] CC: Dr. Clint Miramontes * Kristen Fabian RN - 06/05/2022 1530 EDT Suspicion of Abuse: no - If yes, please document evidence: - Assessed on: 06/05/22 16:14 - Assessed by: KRISTEN FABIAN RN documented in this encounter Plan of Treatment Upcoming Encounters Date Type Department Care Team (Late st Contact Info) Description 08/10/2024 16:00 EDT Appointment [facility] MRI [address] [place] [address] 08/16/2024 14:00 EDT EMILIA [facility] OBGYN Ultrasound [address] [place] [address] 08/29/2024 14:00 EDT Office Visit [facility] OBGYN [address] [place], [place] [phone] Ness Vilchis MD [address] [place] [address], [address] [place] [phone] 08/31/2024 16:00 EDT Office Visit [facility] Orthopedics & Sport Medicine [address], [address] [place], [place] [phone] Reema Peoples PA-C [address] [facility] [address] [place], [place] [phone] 09/01/2024 9:30 EDT Office Visit [facility] Rheumatology [address] [place] [phone] Lin Grider MD [address] [place] [address] [address] [place] [address] 11/08/2024 14:00 EST Office Visit [facility] Adult Hematology & Oncology [address] [place] [address] Luz Maria Peter, GABRIEL [address] [place] [address] [address] [place] [phone] 11/22/2024 10:15 EST Office Visit [facility] Family Medicine - [place] [address] [place] [address] Clint Miramontes MD [address] [place] [phone] documented as of this encounter Visit Diagnoses Diagnosis 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)- Primary documented in this encounter Discontinued Medications Medication Sig Discontinue Reason Start Date End Da te aspirin 325 mg tablet Take 1 Tab by mouth daily. Therapy completed 06/04/2010 06/05/2022 documented as of this encounter Care Teams Treasury Accountant Relationship Specialty Start Date End Date Clint Miramontes MD [address] [place] [phone] PCP - General 08/23/19 documented as of this encounter
--- OUTSIDE RECORDS SUMMARY | 2024-08-07 13:37 | XMS_ITS | Encounter Summary ---
Author Organization [facility] Address [address] [place] [address] Care Team Providers Care Ambulance Dispatcher Name Role Phone Clint Miramontes MD Primary Care Provider [phone] Reason for Referral * Laboratory Services (Routine/Next Available) - New Request Specialty Diagnoses / Procedures Referred By [facility] Referred To Contact Diagnoses Gastroesophageal reflux disease, unspecified whether esophagitis present Procedures H. PYLORI BREATH TEST Clint Miramontes MD [address] [place] [address] Referral ID Status Reason Start Date Expiration Date V isits Requested Visits Authorized [id number] New Request 05/16/2022 1 1 Reason for Visit * Reason Onset Date Comments Results 05/15/2022 Encounter Details Date Type Department Care Team (Late st Contact Info) Description 05/15/2022 Telephone [facility] [place] - [place] [address] [place] [address] Clint Miramontes MD [address] [place] [phone] Results Social History Tobacco Use Types Packs/Day [...] Telephone Encounter - Maci Farrar RN - 05/22/2022 1644 EDT Yes, I had reviewed with patient earlier this week and scheduled NV. * Telephone Encounter - Luz Maria Hdz RN - 05/22/2022 0922 EDT Mel said that she has the test. The lab apparently does not administer the tests there. She is now scheduled for a nurse visit for Thursday the 04 of June. If she needs to be reached the - use cell phone. Kesha please advise if we can admin this test here. * Telephone Encounter - Maci Farrar RN - 05/16/2022 1302 EDT Clint Miramontes MD [facility] Nurse 4 hours ago (9:00) Yes.. ??Lindsay reordered. ?? Have her go to lab. Message text * Telephone Encounter - Maci Farrar RN - 05/15/2022 1651 EDT Called lab as I do not see results on chart. Karlee from [facility] [place] stated [facility] cancelled the test. They do not know why. States they did not get anotification. Please advise. Should we repeat? * Telephone Encounter - Maci Farrar RN - 05/15/2022 1622 EDT Clint Miramontes MD [facility] Nurse 1 hour ago (14:32) What exactly are the results? ?? Message text * Telephone Encounter - Hai Ronquillo - 05/15/2022 1035 EDT Pt called requesting a nurse call back to discuss the results of her HPylori done in office. documented in this encounter Plan of Treatment Upcoming Encounters Date Type Department Care Team (Late st Contact Info) Description 08/10/2024 16:00 EDT Appointment [facility] MRI [address] [place] [address] 08/16/2024 14:00 EDT EMILIA [facility] OBGYN Ultrasound [address] [place] [phone] 08/29/2024 14:00 EDT Office Visit [facility] OBGYN [address] [place] [phone] Ness Vilchis MD 130 [facility], [address] [place] [phone] 08/31/2024 16:00 EDT Office Visit [facility] Orthopedics & Sport Medicine [address], [address] [place] [address] Reema Peoples PA-C 1311 [facility] [address] [place], [place] [phone] 09/01/2024 9:30 EDT Office Visit [facility] Rheumatology [address] [place], [place] [phone] Lin Grider MD 130 [facility] [address] [place] [address] 11/08/2024 14:00 EST Office Visit [facility] Adult Hematology & Oncology [address] [place] [address] Luz Maria Peter NP 130 [facility], [facility] [address] [place] [address] 11/22/2024 10:15 EST Office Visit [facility] Family Medicine - [place] [address] [place], [place] [phone] Clint Miramontes MD [address] [place] [phone] documented as of this encounter Results * H. PYLORI BREATH TEST (06/04/2022 13:52 EDT) H. pylori C Urea Breath Test Negative Negative 06/05/2022 9:22 EDT [facility] Comment: Result indicates the absence of current Helicobacter pylori infection. Test Performed by: [facility] [employer] [facility] [address] [place] [address] Public Health Worker: Mo Reid M.D. Ph.D.; CLIA# [id number] Breath SPECIMEN FROM RESPIRATORY SYSTEM / Unknown 06/04/2022 13:52 EDT 06/04/2022 13:52 EDT Clint Miramontes MD GEN LAB UNIT COLLECT ORDERABLES [facility] [address] [place] [address] documented in this encounter Visit Diagnoses Diagnosis Gastroesophageal reflux disease, unspecified whether esophagitis present- Primary documented in this encounter Care Teams Ambulance Dispatcher Relationship Specialty Start Date End Date Clint Miramontes MD [address] [place] [phone] PCP - General 08/23/19 documented as of this encounter
--- OUTSIDE RECORDS SUMMARY | 2024-08-07 13:37 | XMS_ITS | Encounter Summary ---
Author Organization [facility] Address [address] [place] [address] Care Team Providers Care Equipment Man Name Role Phone Clint Miramontes MD Primary Care Provider [phone] Encounter Details Date Type Department Care Team (Late st Contact Info) Description 09/08/2022 Orders Only [facility] - [facility] Rheumatology [address] [place], [place] [phone] Lin Grider MD [address] [facility] [address] [place] [address] Social History Tobacco Use Types [...] as of this encounter Progress Notes * Lin Grider MD - 09/08/2022 1638 EST Reclast due for early Oct 2022. documented in this encounter Plan of Treatment Upcoming Encounters Date Type Department Care Team (Late st Contact Info) Description 08/10/2024 16:00 EDT Appointment [facility] MRI [address] [place], [place] [phone] 08/16/2024 14:00 EDT EMILIA [facility] OBGYN Ultrasound [address] [place] [address] 08/29/2024 14:00 EDT Office Visit [facility] OBGYN [address] [place] [phone] Ness Vilchis MD [address] [place] [address], [address] [place] [address] 08/31/2024 16:00 EDT Office Visit [facility] Orthopedics & Sport Medicine [address], [address] [place] [address] Reema Peoples PA-C [address] [facility] [address] [place], [place] [phone] 09/01/2024 9:30 EDT Office Visit [facility] Rheumatology [address] [place], [place] [address] Lin Grider MD [address] [place] [address] [address] [place] [phone] 11/08/2024 14:00 EST Office Visit [facility] Adult Hematology & Oncology [address] [place] [address] Luz Maria Peter, GABRIEL [address] [facility], [address] [place] [phone] 11/22/2024 10:15 EST Office Visit [facility] Family Medicine - [place] [address] [place] [phone] Clint Miramontes MD [address] [place] [phone] documented as of this encounter Visit Diagnoses Not on filedocumented in this encounter Care Teams Equipment Man Relationship Specialty Start Date End Date Clint Miramontes MD [address] [place] [phone] PCP - General 08/23/19 documented as of this encounter
--- OUTSIDE RECORDS SUMMARY | 2024-08-07 13:37 | XMS_ITS | Encounter Summary ---
Author Organization [facility] Address [address] [place] [address] Care Team Providers Care Dozer Operator Name Role Phone Clint Miramontes MD Primary Care Provider [phone] Reason for Visit * Reason Onset Date Comments Results 05/01/2022 Encounter Details Date Type Department Care Team (Late st Contact Info) Description 05/01/2022 Telephone [facility] [place]ology & Oncology [address] [place] [phone] Ailyn Atwood, ATTILA Results Social History Tobacco Use Types Packs/Day [...] encounter Miscellaneous Notes * Telephone Encounter - Ailyn Atwood RN - 05/01/2022 0809 EDT Patient notified, verbalized understanding. * Telephone Encounter - Ailyn Atwood RN - 05/01/2022 0808 EDT ----- Message from Sheyla Atwood MD sent at 05/01/2022 7:51 EDT ----- Please let her know that all the blood work we did was within normal limits. Thank you. documented in this encounter Plan of Treatment Upcoming Encounters Date Type Department Care Team (Late st Contact Info) Description 08/10/2024 16:00 EDT Appointment [facility] MRI [address] [place], [place] [phone] 08/16/2024 14:00 EDT EMILIA [facility] OBGYN Ultrasound [address] [place] [address] 08/29/2024 14:00 EDT Office Visit [facility] OBGYN [address] [place], [place] [phone] Ness Vilchis MD 130 [facility] [address], [address] [place] [address] 08/31/2024 16:00 EDT Office Visit [facility] Orthopedics & Sport Medicine [address], [address] [place] [address] Reema Peoples PA-C 13[address] [facility] [address] [place], [place] [phone] 09/01/2024 9:30 EDT Office Visit [facility] Rheumatology [address] [place] [address] Lin Grider MD [address] [facility] [address] [place] [address] 11/08/2024 14:00 EST Office Visit [facility] Adult Hematology & Oncology [facility] [place] [address] Luz Maria Peter NP 130 [facility], [facility] [address] [place] [address] 11/22/2024 10:15 EST Office Visit [facility] Family Medicine - [place] [address] [place] [phone] Clint Miramontes MD [address] [place] [phone] documented as of this encounter Visit Diagnoses Not on filedocumented in this encounter Care Teams Dozer Operator Relationship Specialty Start Date End Date Clint Miramontes MD [address] [place] [phone] PCP - General 08/23/19 documented as of this encounter
--- OUTSIDE RECORDS SUMMARY | 2024-08-07 13:37 | XMS_ITS | Encounter Summary ---
Author Organization [facility] Address [address] [place] [address] Care Team Providers Care Clockmaker Name Role Phone Clint Miramontes MD Primary Care Provider [phone] Reason for Referral * Radiology Services (Routine/Next Available) - Authorization Not Required Specialty Diagnoses / Procedures Referred By Annia gan Referred To Contact Radiology Diagnoses Cyst of left ovary Procedures US PELVIS TRANSVAGINAL Ness Vilchis MD [address] [place] [address], [address] [place] [address] [address] Referral ID Status Reason Start Date Expiration Date Visits Requested Visits Authorized [id number] Authorization Not Required 07/14/2022 1 1 Reason for Visit * Reason Comments Follow-up review US, no compla nts Encounter Details Date Type Department Care Team (Late st Contact Info) Description 07/14/2022 10:40 EDT Office Visit [facility] OBGYN [address] [place] [address] Ness Vilchis MD [address] [place] [address], [address] [place] [phone] Cyst of left ovary (Primary Dx) Social History Tobacco Use Types [...] Sign Reading Time Taken Comments Blood Pressure 126/72 07/14/2022 1050 EDT Pulse - - Temperature - - Respiratory Rate 16 07/14/2022 1050 EDT Oxygen Saturation - - Inhaled Oxygen Concentration - - Weight 44.9 kg (99 lb) 07/14/2022 1050 EDT Height 148.6 cm (4' 10.5) 07/14/2022 1050 EDT Body Mass Index 20.34 07/14/2022 1050 EDT documented in this encounter Functional Status [...] as of this encounter Progress Notes * Ness Vilchis MD - 07/14/2022 1040 EDT HPI: Mel Ramirez is a 72 y.o. who presents after ultrasound to review results. Prelimresults available but finalized report not available at time of visit. Patient denies bleeding. Patient denies pain. ROS: ROS HOOP PUNCH AND COILER OPERATOR History: No LMP recorded. Patient is postmenopausal. OB History Para Term AB Living 2 2 2 2 SAB TAB Ectopic Multiple Live Births 2 # Outcome Date GA Lbr Villa/2nd Weight Sex Delivery Anes PTL Lv 2 Term 06/26/81 4196 g (9 lb 4 oz) M Vag-Spont STEVIE 1 Term 09/29/74 3374 g (7 lb 7 oz) F Vag-Spont STEVIE Past Medical History: Diagnosis Date ??? Aneurysm [...] Years since quittin.0 ??? Smokeless tobacco: Never Used ??? Tobacco comment: 1981 quit Vaping Use ??? Vaping Use: Former ??? Substances: THC ??? Devices: Pre-filled or refillable cartridge Substance Use Topics ??? Alcohol use: No ??? Drug use: Yes Frequency: 5.0 times per week Types: Marijuana Comment: smokes and does edibles Family History Problem Relation Age of Onset ??? Lung Cancer Mother ??? Lymphoma Mother ??? Diabetes Mother ??? Hypertension Mother ??? Breast Cancer Paternal Grandmother ??? Stroke Maternal Grandmother ??? Hypertension Father ??? Hypertension Brother ??? Breast Cancer Paternal Aunt ??? Liver Cancer Paternal Aunt ??? Stomach Cancer Paternal Uncle ??? Pancreatic Cancer Maternal Uncle ??? Diabetes Maternal Uncle Allergies Allergen Reactions ??? Crestor [Rosuvastatin] Rash ??? Other - See Comments Wasp stings- swollen local reactions ??? Pravastatin Rash Current Outpatient Medications Medication ??? albuterol sulfate 90 mcg/actuation aero powdr breath act w/sensor ??? cholecalciferol, Vitamin D3, (VITAMIN D) 1,000 unit tablet ??? diazePAM (VALIUM) 2 mg tablet ??? fluticasone propionate (FLOVENT HFA) 110 mcg/actuation inhaler ??? inhalational spacing device (E-Z SPACER) ??? LORazepam (ATIVAN) 1 mg tablet ??? lovastatin (MEVACOR) 40 mg tablet No current facility-administered medications for this visit. Objective: BP 126/72 (BP Cuff Location: Right arm, BP Patient Position: Sitting, BP Cuff Sizes: Adult, regular) Resp 16 Ht (!) 148.6 cm (58.5) Wt (!) 44.9 kg (99 lb) BMI 20.34 kg/m?? Physical Exam General: Pleasant, alert, cooperative Neck: supple Skin: warm and dry Neuro: Alert and oriented x 3 Assessment/Plan: Mel Ramirez is a 72 y.o. who presents with 1. Cyst of left ovary Patient with stable appearing left ovarian cyst which is small in size and has not changed. I wouldrecommend repeating imaging one more year to ensure stability. - US PELVIS TRANSVAGINAL; Future Medical decision making: ??? Problems addressed today: Stable, uncomplicated problem ??? Review/interpretation/discussion today: Review/order of unique test(s) ??? Patient has Low Risk of morbidity from additional diagnostic testing or treatment (need 2/3 of the above for low decision making) Ness Vilchis MD documented in this encounter Plan of Treatment Upcoming Encounters Date Type Department Care Team (Late st Contact Info) Description 08/10/2024 16:00 EDT Appointment [facility] MRI [address] [place] [address] 08/16/2024 14:00 EDT EMILIA [facility] OBGYN Ultrasound [address] [place] [address] 08/29/2024 14:00 EDT Office Visit [facility] OBGYN [address] [place] [address] Ness Vilchis MD [address] [place] [address]-, [address] [place] [address] 08/31/2024 16:00 EDT Office Visit [facility] Orthopedics & Sport Medicine [address], [address] [place], [place] [phone] Reema Peoples PA-C [address] [facility] [address] [place], [place] [phone] 09/01/2024 9:30 EDT Office Visit [facility] Rheumatology [address] [place], [place] [phone] Lin Grider MD [facility] [address] [place] [address] 11/08/2024 14:00 EST Office Visit [facility] Adult Hematology & Oncology [address] [place] [address], [place] [phone] Luz Maria Peter NP 130 [facility], [facility] [address] [place] [address] 11/22/2024 10:15 EST Office Visit [facility] Family Medicine - [place] [address] [place] [address] Clint Miramontes MD [address] [place] [phone] documented as of this encounter Results * US PELVIS TRANSVAGINAL (07/13/2023 15:02 EDT) Anatomical Region Laterality Modality Pelvis Ultrasound 07/13/2023 15:3 2 EDT Impressions 07/13/2023 15:32 EDT 1. ??BILOCULAR 2.9 CM LEFT OVARIAN CYST, slowly enlarging compared to 2020. O- RADS category 2: Almost certainly benign. Per ACR guidelines for this postmenopausal patient, surveillance ultrasound is recommended in 1 year. 2. ??Fibroid uterus, as detailed above. [id number] Narrative 07/13/2023 15:32 EDT US PELVIS TRANSVAGINAL COMPLETE ?? Signs and Symptoms/Comments: ??no symptoms;N83.202:Cyst of left ovary Comparison: Ultrasound on 07/14/2022, 07/19/2021. Technique: Pelvic Ultrasound - Transvaginal approach was performed. FINDINGS: Uterus: ?? Orientation: Retroverted Size: 4.6 cm x 3.1 cm x 4.8 cm Findings: Fibroid uterus, similar to 2021. Sales Architect calcified 2.8 cm intramural fibroid in the ventral uterine body. Sales Architect subserosal 1.9 cm fibroid along the dorsal [...] cm Findings: Fibroid uterus, similar to 2021. Sales Architect calcified 2.8 cmintramural fibroid in the ventral uterine body. Sales Architect subserosal1.9 cm fibroid along the dorsal uterine [...] 1year. 2. Fibroid uterus, as detailed above. [id number] Ness Vilchis MD IMG US OB ORDERABLES documented in this encounter Visit Diagnoses Diagnosis Cyst of left ovary- Primary Other and unspecified ovarian cyst Cyst of left ovary Other and unspecified ovarian cyst documented in this encounter Care Teams Clockmaker Relationship Specialty Start Date End Date Clint Miramontes MD [address] [place] [address] PCP - General 08/23/19 documented as of this encounter
--- OUTSIDE RECORDS SUMMARY | 2024-08-07 13:37 | XMS_ITS | Encounter Summary ---
Author Organization [facility] Address [address] [place] [address] Care Team Providers Care Pain Management Physician Name Role Phone Clint Miramontes MD Primary Care Provider [phone] Reason for Visit * Laboratory Services (Routine/Next Available) - New Request Specialty Diagnoses / Procedures Referred By Annia gan Referred To Contact Diagnoses Mixed hyperlipidemia Procedures COMPREHENSIVE METABOLIC PANEL (CMP) Clint Miramontes MD [address] [place] [address] Referral ID Status Reason Start Date Expiration Date V isits Requested Visits Authorized [id number] New Request 09/15/2022 1 1 Encounter Details Date Type Department Care Team (Late st Contact Info) Description 03/25/2023 6:[address] [facility] - Outpatient Phlebotomy Drawing [address] [place] [address] Lab, [facility] Phlebotomy Mixed hyperlipidemia (Primary Dx) Social History Tobacco Use Types [...] Contact Info) Description 08/10/2024 16:00 EDT Appointment [facility] MRI [address] [place], [place] [phone] 08/16/2024 14:00 EDT EMILIA [facility] OBGYN Ultrasound [address] [place] [address] 08/29/2024 14:00 EDT Office Visit [facility] OBGYN [address] [place] [phone] Ness Vilchis MD [address] [place], [place] [address], [address] [place] [address] 08/31/2024 16:00 EDT Office Visit [facility] Orthopedics & Sport Medicine [address], [address] [place] [address] Reema Peoples PA-C [address] [facility] [address] [place], [place] [address] 09/01/2024 9:30 EDT Office Visit [facility] Rheumatology [address] [place], [place] [phone] Lin Grider MD [address] [place] [address] [address] [place] [phone] 11/08/2024 14:00 EST Office Visit [facility] Adult Hematology & Oncology [facility] [place] [address] Luz Maria Peter, GABRIEL 130 [facility], [facility] [address] [place] [phone] 11/22/2024 10:15 EST Office Visit [facility] Family Medicine - [place] [address] [place] [address] Clint Miramontes MD [address] [place] [phone] documented as of this encounter Procedures Procedure Name Priority Date/Time Associated Diagnosis Comments LIPID PROFILE (INCLUDES CHOLESTEROL, TRIGLYCERIDES, HDL, LDL) Routine 03/25/2023 6:51 EDT Mixed hyperlipidemia COMPREHENSIVE METABOLIC PANEL (CMP) Routine 03/25/2023 6:51 EDT Mixed hyperlipidemia documented in this encounter Results * LIPID PROFILE (INCLUDES CHOLESTEROL, TRIGLYCERIDES, HDL, LDL) (03/25/2023 6:51 EDT) Cholesterol 165 <200 mg/dL 03/25/2023 8:15 [facility] Comment:Note that therapeuti c goals will differ between patients based on cardiac risk factors and current medical therapy. HDL 59 >=50 mg/dL 03/25/2023 8:15 [facility] Comment:Note that therapeuti c goals will differ between patients based on cardiac risk factors and current medical therapy. LDL, Calculated 94 <160 mg/dL 8:15 [facility] Comment:Note that therapeuti c goals will differ between patients based on cardiac risk factors and current medical therapy. Triglyceride 61 <=150 mg/dL 03/25/2023 8:15 [facility] Comment:Note that therapeuti c goals will differ between patients based on cardiac risk factors and current medical therapy. Chol/HDL Ratio 2.8 See Note 03/25/2023 8:15 [facility] Comment: NOTE: Desirable Ratio = <4.1 Patient At Risk Ratio = >5.0(Males) ?>6.0(Females) Non HDL Cholesterol 106 <160 mg/dL 03/25/2023 8:15 [facility] Comment:Note that therapeuti c goals will differ between patients based on cardiac risk factors and current medical therapy. Blood VENOUS BLOOD / Unknown Venipuncture / Unknown 03/25/2023 6:51 EDT 03/25/2023 7:34 EDT Clint Miramontes MD CHEMISTRY & BLOOD GA S ORDERABLES Performing Organization Address City/State/[facility] Co de Phone Number [facility] [address] [place] [address] * COMPREHENSIVE METABOLIC PANEL (CMP) (03/25/2023 6:51 EDT) Sodium 141 136 - 145 mmol/L 03/25/2023 8:15 [facility] Potassium 4.4 3.5 - 5.0 mmol/L 03/25/2023 8:15 [facility] Chloride 105 96 - 110 mmol/L 03/25/2023 8:15 [facility] CO2 Total 29 22 - 32 mmol/L 03/25/2023 8:15 [facility] Glucose 95 70 - 100 mg/dl 03/25/2023 8:15 [facility] BUN 17 10 - 26 mg/dL 03/25/2023 8:15 [facility] Creatinine 0.58 0.52 - 1.04 mg/dL 03/25/2023 8:15 [facility] eGFR 95 >60 mL/min/1.7 3m2 03/25/2023 8:15 [facility] Total Protein 6.8 6.3 - 8.2 g/dL 03/25/2023 8:15 [facility] Albumin 4.1 3.4 - 4.9 g/dL 03/25/2023 8:15 [facility] Alkaline Phosphatase 47 38 - 126 U/L 03/25/2023 8:15 [facility] AST 25 15 - 46 U/L 03/25/2023 8:15 [facility] ALT 20 <35 U/L 03/25/2023 8:15 [facility] Bilirubin, Total 0.8 <1.4 mg/dL 03/25/20 8:15 [facility] Calcium 9.0 8.5 - 10.5 mg/dL 03/25/2023 8:15 [facility] Albumin/Globulin Ratio 1.5 1.0 - 2.5 03/25/2023 8:15 [facility] Anion Gap 7 5 - 14 mmol/L 03/25/2023 8:15 [facility] Blood VENOUS BLOOD / Unknown Venipuncture / Unknown 03/25/2023 6:51 EDT 03/25/2023 7:34 EDT Clint Miramontes MD CHEMISTRY & BLOOD GA S ORDERABLES Performing Organization Address City/State/[facility] Co de Phone Number [facility] [address] [place] [address] documented in this encounter Visit Diagnoses Diagnosis Mixed hyperlipidemia- Primary documented in this encounter Care Teams Pain Management Physician Relationship Specialty Start Date End Date Clint Miramontes MD [address] [place] [phone] PCP - General 08/23/19 documented as of this encounter
--- OUTSIDE RECORDS SUMMARY | 2024-08-07 13:37 | XMS_ITS | Encounter Summary ---
Author Organization [facility] Address [address] [place] [address] Care Team Providers Care Job Site Superintendent Name Role Phone Clint Miramontes MD Primary Care Provider [phone] Reason for Referral * Consult (Routine/Next Available) - Authorization Not Required Specialty Diagnoses / Procedures [facility] Referred To Contact Orthopedic Surgery Diagnoses Acute pain of left knee Corina Edwards PA-C [address] [place] [address] [facility] Ortho & Sport [address], [address] [place] [address] Referral ID Status Reason Start Date Expiration Date Visits Requested Visits Authorized [id number] Authorization Not Required Specialty Services Required 3 1 1 Question Answer Reason for Request: left knee pain and swelling Encounter Details Date Type Department Care Team (Late st Contact Info) Description 02/11/2023 Orders Only [facility] Family Medicine - [place] [address] [place] [address] Corina Edwards PA-C [address] [place] [address] Acute pain of left knee (Primary [...] Contact Info) Description 08/10/2024 16:00 EDT Appointment [facility] MRI [address] [place], [place] [address] 08/16/2024 14:00 EDT EMILIA [facility] OBGYN Ultrasound [address] [place] [address] 08/29/2024 14:00 EDT Office Visit [facility] OBGYN [address] [place], [place] [phone] Ness Vilchis MD 130 [facility] [address], [address] [place] [address] 08/31/2024 16:00 EDT Office Visit [facility] Orthopedics & Sport Medicine [address], [address] [place], [place] [address] Reema Peoples PA-C [address] [facility] [address] [place] [address] 09/01/2024 9:30 EDT Office Visit [facility] Rheumatology 130 [facility], [place] [phone] Lin Grider MD [address] [facility] [address] [place] [address] 11/08/2024 14:00 EST Office Visit [facility] Adult Hematology & Oncology [address] [place] [address], [place] [address] Luz Maria Peter NP 130 [facility], [facility] [address] [place] [address] 11/22/2024 10:15 EST Office Visit [facility] Family Medicine - [place] [address] [place], [place] [phone] Clint Miramontes MD [address] [place] [phone] Scheduled Referrals Name Type Priority Associated Diagnoses Order Schedule AMB CONS/FOLLOW UP [facility]THOPEDICS - [facility] Outpatient Referral Routine/Next Available Acute pain of left knee Expected: 02/18/2023 (Approximate), Expires: 02/12/2024 documented as of this encounter Visit Diagnoses Diagnosis Acute pain of left knee- Primary documented in this encounter Care Teams Job Site Superintendent Relationship Specialty Start Date End Date Clint Miramontes MD [address] [place] [address] PCP - General 08/23/19 documented as of this encounter
--- OUTSIDE RECORDS SUMMARY | 2024-08-07 13:37 | XMS_ITS | Encounter Summary ---
Author Organization [facility] Address [address] [place] [address] Care Team Providers Care Popcorn Candy Maker Name Role Phone Clint Miramontes MD Primary Care Provider [phone] Reason for Visit * Reason Comments Labs Only H Pylori kit * Laboratory Services (Routine/Next Available) - New Request Specialty Diagnoses / Procedures Referred By [facility] Referred To Contact Diagnoses Gastroesophageal reflux disease, unspecified whether esophagitis present Procedures H. PYLORI BREATH TEST Clint Miramontes MD [address] [place] [address] Referral ID Status Reason Start Date Expiration Date V isits Requested Visits Authorized [id number] New Request 05/16/2022 1 1 Encounter Details Date Type Department Care Team (Latest Contact Info) Description 06/04/2022 13:30 EDT Nurse Only [facility] - [place] [address] [place] [phone] Nurse, [facility] Gastroesophageal reflux disease, unspecified whether esophagitis present (Primary Dx) Social History Tobacco Use Types [...] as of this encounter Progress Notes * Cecil Wyatt RN - 06/04/2022 1330 EDT Patient brought in Breath ID kit for H Pylori testing. Performed by patient in office with supervision by RN's. Sent to [facility] lab. Will need to be redirected to [facility] documented in this encounter Plan of Treatment Upcoming Encounters Date Type Department Care Team (Late st Contact Info) Description 08/10/2024 16:00 EDT Appointment [facility] MRI [address] [place], [place] [phone] 08/16/2024 14:00 EDT EMILIA [facility] OBGYN Ultrasound [address] [place], [place] [phone] 08/29/2024 14:00 EDT Office Visit [facility] OBGYN [address] [place], [place] [phone] Ness Vilchis MD 130 [facility], [address] [place] [address] 08/31/2024 16:00 EDT Office Visit [facility] Orthopedics & Sport Medicine [address], [address] [place], [place] [phone] Reema Peoples PA-C [address] [facility] [address] [place], [place] [address] 09/01/2024 9:30 EDT Office Visit [facility] Rheumatology [address] [facility], [place] [phone] Lin Grider MD [address] [facility] [address] [place] [address] 11/08/2024 14:00 EST Office Visit [facility] Adult Hematology & Oncology [address] [place] [address], [place] [address] Luz Maria ePter NP 130 [facility], [facility] [address] [place] [address] 11/22/2024 10:15 EST Office Visit [facility] Family Medicine - [place] [address] [place] [address] Clint Miramontes MD [address] [place] [phone] documented as of this encounter Procedures Procedure Name Priority Date/Time Associated Diagnosis Comments H. PYLORI BREATH TEST Routine 06/04/2022 13:52 EDT Gastroesophageal reflux disease, unspecified whether esophagitis present documented in this encounter Results * H. PYLORI BREATH TEST (06/04/2022 13:52 EDT) H. pylori C Urea Breath Test Negative Negative 06/05/2022 9:22 EDT [facility] Comment: Result indicates the absence of current Helicobacter pylori infection. Test Performed by: [facility] [address] [place] [id number] Underwater Hunter: Mo Reid M.D. Ph.D.; CLIA# [id number] Breath SPECIMEN FROM RESPIRATORY SYSTEM / Unknown 06/04/2022 13:52 EDT 06/04/2022 13:52 EDT Clint Miramontes MD GEN LAB UNIT COLLECT ORDERABLES [facility] [address] [place] [address] documented in this encounter Visit Diagnoses Diagnosis Gastroesophageal reflux disease, unspecified whether esophagitis present- Primary documented in this encounter Care Teams Popcorn Candy Maker Relationship Specialty Start Date End Date Clint Miramontes MD [address] [place] [phone] PCP - General 08/23/19 documented as of this encounter
--- OUTSIDE RECORDS SUMMARY | 2024-08-07 13:37 | XMS_ITS | Encounter Summary ---
Author Organization [facility] Address [address] [place] [address] Care Team Providers Care R[employer] Name Role Phone Clint Miramontes MD Primary Care Provider [phone] Reason for Visit * Reason Onset Date Comments Results 06/09/2022 Encounter Details Date Type Department Care Team (Late st Contact Info) Description 06/09/2022 Telephone [facility] Family Medicine - [place] [address] [place] [phone] Clint Miramontes MD [address] [place] [address] [phone] Results Social History Tobacco Use Types Packs/Day [...] Telephone Encounter - Maci Farrar RN - 06/09/2022 1308 EDT Left detailed message on voicemail. Asked for a call back if needed * Telephone Encounter - Maci Farrar RN - 06/09/2022 1307 EDT Clint Miramontes MD [facility] Nurse 19 minutes ago (12:45) I think I would hold asa with aneurysm. May be best for her to discuss with DrSushil who saw her for this. ?? Message text * Telephone Encounter - Maci Farrar RN - 06/09/2022 1232 EDT Please advise re: Used to be on an Aspirin regiment for an aneurysm about 10 years ago. Wondering if she should startback up on a lower dose (81mg) of Aspirin or should she call her who saw her for the aneurysm? * Telephone Encounter - Chioma Mandel - 06/09/2022 1155 EDT Pt called back for results. Relayed information below from SF. Pt reports that problem has improvedsince stopping Aspirin. Will wait and see how things progress re: F/U with JW. Used to be on an Aspirin regiment for an aneurysm about 10 years ago. Wondering if she should start back up on a lower dose (81mg) of Aspirin or should she call her DrSushil who saw her for the aneurysm? Please advise. ----- Message from Anish Álvarez PA-C sent at 06/06/2022 5:50 EDT ----- Please call the patient with results. H Pylori testing negative. Can follow-up with Dr. Miramontes upon his return. documented in this encounter Plan of Treatment Upcoming Encounters Date Type Department Care Team (Late st Contact Info) Description 08/10/2024 16:00 EDT Appointment [facility] MRI [address] [place] [address] [id number] 08/16/2024 14:00 EDT EMILIA [facility] OBGYN Ultrasound [address] [place] [address] [phone] 08/29/2024 14:00 EDT Office Visit [facility] OBGYN [address] [place] [address] [phone] Ness Vilchis MD [address] [place] [address], [address] [place] [address] 08/31/2024 16:00 EDT Office Visit [facility] Orthopedics & Sport Medicine [address], [address] [place] [address] Reema Peoples PA-C [address] [facility] [address] [place], [place] [phone] 09/01/2024 9:30 EDT Office Visit [facility] Rheumatology [address] [place] [address] Lin Grider MD [address] [place] [address] [address] [place] [phone] 11/08/2024 14:00 EST Office Visit [facility] Adult Hematology & Oncology [address] [place] [phone] Luz Maria Peter NP [address] [facility], [facility] [address] [place] [phone] 11/22/2024 10:15 EST Office Visit [facility] Family Medicine - [place] [address] [place] [address] [phone] Clint Miramontes MD [address] [place] [address] [phone] documented as of this encounter Visit Diagnoses Not on filedocumented in this encounter Care Teams [employer] Relationship Specialty Start Date End Date Clint Miramontes MD [address] [place] [address] [phone] PCP - General 08/23/19 documented as of this encounter
--- OUTSIDE RECORDS SUMMARY | 2024-08-07 13:37 | XMS_ITS | Encounter Summary ---
Author Organization [facility] Address [address] [place] [address] Care Team Providers Care Business Supervisor Name Role Phone Clint Miramontes MD Primary Care Provider [phone] Reason for Visit * Reason Onset Date Comments Medications Refill 07/13/2022 Encounter Details Date Type Department Care Team (Late st Contact Info) Description 07/13/2022 Refill [facility] Family Medicine - [place] [address] [place] [address] Clint Miramontes MD [address] [place] [phone] Medications Refill Social History Tobacco Use Types [...] DAY 180 Tablet 3 07/17/2022 09/11/2023 documented in this encounter Miscellaneous Notes * Telephone Encounter - Maci Farrar RN - 07/17/2022 1025 EDT Rx loaded for your review due to med interaction * Telephone Encounter - Meena Little - 07/17/2022 0946 EDT Mel is scheduled for 09/15 @ 10:30 * Telephone Encounter - Chioma Mandel - 07/14/2022 1107 EDT LVMTCB to schedule between 08/21/22 and 10/21/22 per PCP notes. * Telephone Encounter - Maci Farrar RN - 07/14/2022 0953 EDT Electronic request received from pharmacy. CAROL: 04/21/22 Follow-up: None. Cancelled 05/13/22 Per PCP: Follow up with me in 4-6 mo Please reach out to patient to schedule f/u as recommended above, and return to nursing to fill, thank you documented in this encounter Plan of Treatment Upcoming Encounters Date Type Department Care Team (Late st Contact Info) Description 08/10/2024 16:00 EDT Appointment [facility] MRI [address] [place], [place] [phone] 08/16/2024 14:00 EDT EMILIA [facility] OBGYN Ultrasound [address] [place] [address] 08/29/2024 14:00 EDT Office Visit [facility] OBGYN [address] [place] [address] Ness Vilchis MD [address] [place] [address], [address] [place] [phone] 08/31/2024 16:00 EDT Office Visit [facility] Orthopedics & Sport Medicine [address], [address] [place] [address] Reema Peoples PA-Mukund [address] [facility] [address] [place], [place] [phone] 09/01/2024 9:30 EDT Office Visit [facility] Rheumatology [address] [place] [address] [phone] Lin Grider MD [address] [place] [address] [address] [place] [phone] 11/08/2024 14:00 EST Office Visit [facility] Adult Hematology & Oncology [address] [place] [address], [place] [phone] Luz Maria Peter NP [address] [place] [address] [address] [place] [address] 11/22/2024 10:15 EST Office Visit [facility] Family Medicine - [place] [address] [place] [address] Clint Miramontes MD [address] [place] [phone] documented as of this encounter Visit Diagnoses Not on filedocumented in this encounter Discontinued Medications Medication Sig Discontinue Reason Start Date End Da te lovastatin (MEVACOR) 40 mg tablet Take 2 Tablets by mouth daily. 06/13/2021 07/17/2022 documented as of this encounter Care Teams Business Supervisor Relationship Specialty Start Date End Date Clint Miramontes MD [address] [place] [phone] PCP - General 08/23/19 documented as of this encounter
--- OUTSIDE RECORDS SUMMARY | 2024-08-07 13:37 | XMS_ITS | Encounter Summary ---
Author Organization [facility] Address [address] [place] [address] Care Team Providers Care Regional Director Of Admissions Name Role Phone Clint Miramontes MD Primary Care Provider [phone] Reason for Visit * Reason Onset Date Comments Medications Refill 12/16/2022 Encounter Details Date Type Department Care Team (Late st Contact Info) Description 12/16/2022 Refill [facility] - [address] [address] Maci Farrar RN Medications Refill Social History Tobacco Use [...] Daily Max: 1 mg 30 Tablet 3 12/16/2022 04/20/2023 documented in this encounter Miscellaneous Notes * Telephone Encounter - Maci Farrar, ATTILA - 12/16/2022 1044 EST Patient left message on nurse line requesting refill of: Lorazepam CAROL: 09/15/22 Follow-up: 03/16/23, AWV 12/11/23 Per [facility], Lorazepam last filled 10/19/22 #30 for 30 days Rx: loaded for your review documented in this encounter Plan of Treatment Upcoming Encounters Date Type Department Care Team (Late st Contact Info) Description 08/10/2024 16:00 EDT Appointment [facility] MRI [address] [place] [address] 08/16/2024 14:00 EDT EMILIA [facility] OBGYN Ultrasound [address] [place], [place] [phone] 08/29/2024 14:00 EDT Office Visit [facility] OBGYN [address] [place], [place] [phone] Ness Vilchis MD 130 [facility], [address] [place] [address] 08/31/2024 16:00 EDT Office Visit [facility] Orthopedics & Sport Medicine [address], [address] [place], [place] [phone] Reema Peoples PA-C 13[address] [facility] [address] [place], [place] [phone] 09/01/2024 9:30 EDT Office Visit [facility] Rheumatology 130 [place] [address] Lin Grider MD 130 [facility] [address] [address] [place] [phone] 11/08/2024 14:00 EST Office Visit [facility] Adult Hematology & Oncology [facility] [place] [address] Luz Maria Peter NP 130 [facility], [facility] [address] [place] [address] 11/22/2024 10:15 EST Office Visit [facility] Family Medicine - [place] [address] [place] [phone] Clint Miramontes MD [address] [place] [address] [phone] documented as of this encounter Visit Diagnoses Not on filedocumented in this encounter Discontinued Medications Medication Sig Discontinue Reason Start Date End Da te LORazepam (ATIVAN) 1 mg tablet Take 1 Tablet by mouth at bedtime as needed for Anxiety. Daily Max: 1 mg Reorder 08/15/2022 12/16/2022 documented as of this encounter Care Teams Regional Director Of Admissions Relationship Specialty Start Date End Date Clint Miramontes MD [address] [place] [address] [phone] PCP - General 08/23/19 documented as of this encounter
--- OUTSIDE RECORDS SUMMARY | 2024-08-07 13:37 | XMS_ITS | Encounter Summary ---
Author Organization [facility] Address [address] [place] [address] Care Team Providers Care Marketing Director Assisted Living Name Role Phone Clint Miramontes MD Primary Care Provider [phone] Reason for Visit * Reason Onset Date Comments Medications Refill 08/15/2022 Encounter Details Date Type Department Care Team (Late st Contact Info) Description 08/15/2022 Refill [facility] - [address] [address] Yael Moses RN Medications Refill Social History Tobacco Use [...] Daily Max: 1 mg 30 Tablet 3 08/15/2022 12/16/2022 documented in this encounter Miscellaneous Notes * Telephone Encounter - Yael Moses, ATTILA - 08/15/2022 1144 EDT Mel STEWART on Rx line requesting a refill of her ativan. CAROL- F/U- Per [facility] last fill was 07/17/22 #30 for 30 days with 3 refills. Controlled rx loaded for provider review. documented in this encounter Plan of Treatment Upcoming Encounters Date Type Department Care Team (Late st Contact Info) Description 08/10/2024 16:00 EDT Appointment [facility] MRI [address] [place], [place] [phone] 08/16/2024 14:00 EDT EMILIA [facility] OBGYN Ultrasound [address] [place], [place] 460692 08/29/2024 14:00 EDT Office Visit [facility] OBGYN [address] [place], [place] [phone] Ness Vilchis MD 130 [facility], [address] [place] [address] 08/31/2024 16:00 EDT Office Visit [facility] Orthopedics & Sport Medicine [address], [address] [place] [address] Reema Peoples PA-C [address] [facility] [address] [place], [place] [phone] 09/01/2024 9:30 EDT Office Visit [facility] Rheumatology [address] [place] [address] Lin Grider MD 130 [facility] [address] [place] [address] 11/08/2024 14:00 EST Office Visit [facility] Adult Hematology & Oncology [facility] [place] [address] Luz Maria Peter NP 130 [facility], [facility] [address] [place] [address] 11/22/2024 10:15 EST Office Visit [facility] Family Medicine - [place] [address] [place] [address] Clint Miramontes MD [address] [place] [address] [phone] documented as of this encounter Visit Diagnoses Not on filedocumented in this encounter Discontinued Medications Medication Sig Discontinue Reason Start Date End Da te LORazepam (ATIVAN) 1 mg tablet Take 1 Tablet by mouth at bedtime as needed for Anxiety. Daily Max: 1 mg Reorder 04/21/2022 08/15/2022 documented as of this encounter Care Teams Marketing Director Assisted Living Relationship Specialty Start Date End Date Clint Miramontes MD [address] [place] [phone] PCP - General 08/23/19 documented as of this encounter
--- OUTSIDE RECORDS SUMMARY | 2024-08-07 13:37 | XMS_ITS | Encounter Summary ---
Author Organization [facility] Address [address] [place] [address] Care Team Providers Care Water/Wastewater Project Engineer Name Role Phone Clint Miramontes MD Primary Care Provider [phone] Reason for Referral * Radiology Services (Routine/Next Available) - Authorization Not Required Specialty Diagnoses / Procedures Referred By Contac t Referred To Contact Diagnoses Acute pain of left knee Procedures XR KNEE LEFT 3 VIEWS Corina Edwards PA-C [address] [place] [address] [facility] Xray [address] [place] [address] Referral ID Status Reason Start Date Expiration Date Visits Requested Visits Authorized [id number] Authorization Not Required 01/23/2023 1 1 Reason for Visit * Radiology Services (Routine/Next Available) - Authorization Not Required Specialty Diagnoses / Procedures Referred By Contac t Referred To Contact Diagnoses Acute pain of left knee Procedures XR KNEE LEFT 3 VIEWS Corina Edwards PA-C [address] [place] [address] [facility] Xray [address] [place] [address] Referral ID Status Reason Start Date Expiration Date Visits Requested Visits Authorized [id number] Authorization Not Required 01/23/2023 1 1 Encounter Details Date Type Department Care Team (Latest Contact Info) Description 01/23/2023 16:00 EDT - 01/23/2023 23:59 EDT Hospital Encounter [facility] Xray [address] [place] [address] Acute pain of left knee Discharge Disposition: Home or Self Care Social [...] times daily. 1 Each 3 04/21/2022 05/19/2024 diazePAM (VALIUM) 2 mg tablet 1 tab PO bid PRN fying. 6 Tablet 3 11/21/2021 04/03/2023 fluticasone propionate (FLOVENT HFA) 110 mcg/actuation inhaler Inhale 2 Puffs as directed every 12 hours. 18 g 3 04/21/2022 05/07/2023 LORazepam (ATIVAN) 1 mg tablet Take 1 Tablet by mouth at bedtime as needed for Anxiety. Daily Max: 1 mg 30 Tablet 3 12/16/2022 04/20/2023 lovastatin (MEVACOR) 40 mg tablet TAKE TWO [...] Appointment [facility] MRI [address] [place] [address] 08/16/2024 14:00 EDT EMILIA [facility] OBGYN Ultrasound [address] [place] [address] 08/29/2024 14:00 EDT Office Visit [facility] OBGYN [address] [place] [phone] Ness Vilchis MD [address] [place] [address], [address] [place] [phone] 08/31/2024 16:00 EDT Office Visit [facility] Orthopedics & Sport Medicine [address], [address] [place], [place] [phone] Reema Peoples PA-C 1311 [facility] [address] [place], [place] [phone] 09/01/2024 9:30 EDT Office Visit [facility] Rheumatology [address] [place] [phone] Lin Grider MD [address] [place], [place] [address]B [address] [place] [address] 11/08/2024 14:00 EST Office Visit [facility] Adult Hematology & Oncology [address] [place] [address] Luz Maria Peter NP 130 [facility], [facility] [address] [place] [address] 11/22/2024 10:15 EST Office Visit [facility] Family Medicine - [place] [address] [place] [address] Clint Miramontes MD [address] [place] [phone] documented as of this encounter Procedures Procedure Name Priority Date/Time Associated Diagnosis Comments XR KNEE LEFT 3 VIEWS Routine 01/23/2023 16:50 EDT Acute pain of left knee documented in this encounter Results * XR KNEE LEFT 3 VIEWS (01/23/2023 16:50 EDT) Anatomical Region Laterality Modality Lower Extremities Left Computed Radio graphy 01/23/2023 16:2 3 EDT Impressions 01/24/2023 10:30 EDT Mild degenerative changes of the knee. THIS DOCUMENT HAS BEEN ELECTRONICALLY SIGNED BY JENNIFER LEPE MD FOR ANY QUESTIONS OR CONCERNS REGARDING THIS REPORT PLEASE CALL [facility] AT [phone] Narrative 01/24/2023 10:30 EDT PROCEDURE INFORMATION: Exam: [...] CONCERNS REGARDING THIS REPORT PLEASE CALL [facility] [phone] Corina Edwards PA-C IMG DIAGNOSTI C IMAGING ORDERABLES documented in this encounter Visit Diagnoses Diagnosis Acute pain of left knee documented in this encounter Care Teams Water/Wastewater Project Engineer Relationship Specialty Start Date End Date Clint Miramontes MD [address] [place] [phone] PCP - General 08/23/19 documented as of this encounter
--- OUTSIDE RECORDS SUMMARY | 2024-08-07 13:37 | XMS_ITS | Encounter Summary ---
Author Organization [facility] Address [address] [place] [address] Care Team Providers Care Livestock Producer Name Role Phone Clint Miramontes MD Primary Care Provider [phone] Reason for Visit * Reason Comments Follow-up Surveillance for h/o marginal zome lymphoma Encounter Details Date Type Department Care Team (Late st Contact Info) Description 03/09/2023 10:00 EDT Office Visit [facility] Adult Hematology & Oncology [address] [place] [address] [phone] Luz Maria Peter NP [address] [place] [address] [address] [place] [phone] 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) (Primary Dx) Social History Tobacco Use [...] Sign Reading Time Taken Comments Blood Pressure 130/60 03/09/2023 0957 EDT Pulse 96 03/09/2023 0957 EDT Temperature - - Respiratory Rate - - Oxygen Saturation 97% 03/09/2023 0957 EDT Inhaled Oxygen Concentration - - Weight 46.7 kg (103 lb) 03/09/2023 0957 EDT Height - - Body Mass Index [...] Notes * Luz Maria Peter NP - 03/09/2023 1000 EDT CC: Chief Complaint Patient presents with ??? Follow-up Surveillance for h/o marginal zome lymphoma Hematology/Oncology Problem List: ?? Diagnosis ??? 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) ? 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 Clinical stage IIIa disease with numerous small lymph nodes above and below the diaphragm. No treatmentat this time. Subjective: Ms. Ramirez is here for 3 month follow up in the setting of marginal zone lymphoma. Denies night sweats, adenopathy or unintentional weight loss. 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 Injured her left knee months ago. Has appointment with ortho thisafternoon. Review of Systems: All 10 systems have [...] tablet ??? lovastatin (MEVACOR) 40 mg tablet ??? multivitamin capsule No current facility-administered medications for this visit. Objective: VS: BP 130/60 Pulse 96 Wt 46.7 kg (103 lb) SpO2 97% BMI 21.16 kg/m?? Social History Socioeconomic History ??? Marital [...] and does edibles Physical Exam: General appearance: Adult female in NAD. Skin: Skin color, temperature, turgor normal. No rashes or lesions. HENT: Sclera anicteric. No facial pallor. Lungs: clear to auscultation bilaterally, good inspiratory effort Heart: RRR. Abdomen: soft, non-tender; bowel sounds normal; no masses, no organomegaly. Extremities: No LE edema. Lymph nodes: No palpable cervical, supraclavicular, axillary, inguinal adenopathy. Neuro: Alert and oriented x 3. Normal affect. Normal gait. Performance Status:0 Data Review: Labs: Results for orders placed or performed in visit on 03/09/23 COMPLETE BLOOD COUNT AND DIFFERENTIAL Result Value Ref Range WBC 5.51 4.00 - 12.40 K/cmm RBC 4.42 3.86 - 5.04 M/cmm Hemoglobin 13.9 11.6 - 15.2 gm/dL HCT 39.8 % MCV 90 81 - 98 fl MCH 31.4 26.7 - 33.3 pg MCHC 34.9 32.1 - 35.9 gm/dL RDW-CV 13.0 <14.7 % RDW-SD 42.1 <50.4 fl PLT 213 141 - 377 K/cmm MPV 8.8 (L) 9.5 - 12.7 fl % Neutrophils 57.0 % % Lymphocytes 30.9 % % Monocytes 8.3 % % Eosinophils 3.6 % % Basophils 0.2 % % Immature Grans Absolute Neutrophils 3.14 2.20 - 8.85 K/cmm Absolute Lymphocytes 1.70 1.09 - 3.30 K/cmm Absolute Monocytes 0.46 0.10 - 0.80 K/cmm Absolute Eosinophils 0.20 0.03 - 0.61 K/cmm ABS Basophils 0.01 0.01 - 0.11 K/cmm Absolute Immature Grans Type of Differential: Auto COMPREHENSIVE METABOLIC PANEL (CMP) Result Value Ref Range Sodium 138 136 - 145 mmol/L Potassium 4.3 3.5 - 5.0 mmol/L Chloride 99 96 - 110 mmol/L CO2 Total 28 22 - 32 mmol/L Glucose 94 70 - 100 mg/dL BUN 14 10 - 26 mg/dL Creatinine 0.60 0.52 - 1.04 mg/dL eGFR 95 >60 mL/min/1.73m2 Total Protein 7.4 6.3 - 8.2 g/dL Albumin 4.5 3.4 - 4.9 g/dL Alkaline Phosphatase 60 38 - 126 U/L AST 26 15 - 46 U/L ALT 19 <35 U/L Bilirubin, Total 0.9 <1.4 mg/dL Calcium 9.8 8.5 - 10.5 mg/dL Albumin/Globulin Ratio 1.6 1.0 - 2.5 Anion Gap 11 5 - 14 LDH Result Value Ref Range LDH 202 120 - 246 U/L Assessment/Plan: Ms. Ramirez is a 72 yo female with marginal zone lymphoma on surveillance. CT scans from 05/27/22 reviewed with showed no evidence of pathologically enlarged nodes. No evidence of recurrent disease. Will return to clinic in 6 months. Cc: Clint Miramontes MD 30 minutes in face to face contact with 25 minutes counseling side effect, treatment management andcoordination of care. Luz Maria Peter ANP/BIOMEDICAL EQUIPMENT TECHNICIAN [facility] Adult Hematology & Oncology * Sydni Martínez, ATTILA - 03/09/2023 1000 EDT Suspicion of Abuse: no - If yes, please document evidence: - Assessed on: 03/09/23 10:13 - Assessed by: SYDNI MARTÍNEZ RN Procedures: - Venipuncture Performed by: SYDNI MARTÍNEZ RN Site Collected: Right Antecubital Space Volume Withdrawn: LAV EDTA 3.0 mL and [place] SST 8.5 mL Patient Response:Patient tolerated venipuncture well and 23G Butterfly used Number of attempts:1 Collected on: 03/09/23 10:13 Ordering Provider: Jessica Peter NP documented in this encounter Plan of Treatment Upcoming Encounters Date Type Department Care Team (Late st Contact Info) Description 08/10/2024 16:00 EDT Appointment [facility] MRI [address] [place], [place] [phone] 08/16/2024 14:00 EDT EMILIA [facility] OBGYN Ultrasound [address] [place] [address] 08/29/2024 14:00 EDT Office Visit [facility] OBGYN [address] [place] [phone] Ness Vilchis MD [address] [place] [address], [address] [place] [address] 08/31/2024 16:00 EDT Office Visit [facility] Orthopedics & Sport Medicine [address], [address] [place] [address] Reema Peoples PA-C [address] [facility] [address] [place], [place] [phone] 09/01/2024 9:30 EDT Office Visit [facility] Rheumatology [address] [place], [place] [phone] Lin Grider MD [address] [place] [address] [address] [place] [address] 11/08/2024 14:00 EST Office Visit [facility] Adult Hematology & Oncology [facility] [address] [place], [place] [address] Luz Maria Peter NP [address] [facility] [address] [place] [phone] 11/22/2024 10:15 EST Office Visit [facility] Family Medicine - [place] [address] [place] [address] Clint Miramontes MD [address] [place] [phone] documented as of this encounter Procedures Procedure Name Priority Date/Time Associated Diagnosis Comments COMPLETE BLOOD COUNT AND DIFFERENTIAL Routine 03/09/2023 10:09 EDT 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) LDH Routine 03/09/2023 10:09 EDT 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) COMPREHENSIVE METABOLIC PANEL (CMP) Routine 03/09/2023 10:09 EDT 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) documented in this encounter Results * LDH (03/09/2023 10:09 EDT) LDH 202 120 - 246 U/L 03/09/2023 13:18 EDT [facility] Blood VENOUS BLOOD / Unknown Venipuncture / Unknown 03/09/2023 10:09 EDT 03/09/2023 10:09 EDT Luz Maria Peter NP CHEMISTRY & BLOOD GAS ORDERABLES [facility] [address] [place] [address] * COMPREHENSIVE METABOLIC PANEL (CMP) (03/09/2023 10:09 EDT) Sodium 138 136 - 145 mmol/L 03/09/2023 13:18 [facility] Potassium 4.3 3.5 - 5.0 mmol/L 03/09/2023 13:18 [facility] Chloride 99 96 - 110 mmol/L 03/09/2023 13:18 [facility] CO2 Total 28 22 - 32 mmol/L 03/09/2023 13:18 [facility] Glucose 94 70 - 100 mg/dL 03/09/2023 13:18 [facility] BUN 14 10 - 26 mg/dL 03/09/2023 13:18 [facility] Creatinine 0.60 0.52 - 1.04 mg/dL 03/09/2023 13:18 [facility] eGFR 95 >60 mL/min/1.7 3m2 03/09/2023 13:18 [facility] Total Protein 7.4 6.3 - 8.2 g/dL 03/09/2023 13:18 [facility] Albumin 4.5 3.4 - 4.9 g/dL 03/09/2023 13:18 [facility] Alkaline Phosphatase 60 38 - 126 U/L 03/09/2023 13:18 [facility] AST 26 15 - 46 U/L 03/09/2023 13:18 [facility] ALT 19 <35 U/L 03/09/2023 13:18 [facility] Bilirubin, Total 0.9 <1.4 mg/dL 03/09/20 13:18 [facility] Calcium 9.8 8.5 - 10.5 mg/dL 03/09/2023 13:18 [facility] Albumin/Globulin Ratio 1.6 1.0 - 2.5 03/09/2023 13:18 [facility] Anion Gap 11 5 - 14 03/09/2023 13:18 [facility] Blood VENOUS BLOOD / Unknown Venipuncture / Unknown 03/09/2023 10:09 EDT 03/09/2023 10:09 EDT Luz Maria Peter TITLE AGENT CHEMISTRY & BLOOD GAS ORDERABLES [facility] [address] [place] [address] * (ABNORMAL) COMPLETE BLOOD COUNT AND DIFFERENTIAL (03/09/2023 10:09 EDT) WBC 5.51 4.00 - 12.40 K/cmm 03/09/2023 10:35 EDT [facility] HEMATOLOGY & ONCOLOGY [facility] RBC 4.42 3.86 - 5.04 M/cmm 03/09/2023 10:35 EDT [facility] HEMATOLOGY & ONCOLOGY [facility] Hemoglobin 13.9 11.6 - 15.2 gm/dL 03/09/2023 10:35 EDT [facility] HEMATOLOGY & ONCOLOGY [facility] HCT 39.8 % 03/09/2023 10:35 EDT [facility] HEMATOLOGY & ONCOLOGY [facility] MCV 90 81 - 98 fl 03/09/2023 10:35 EDT [facility] HEMATOLOGY & ONCOLOGY [facility] MCH 31.4 26.7 - 33.3 pg 03/09/2023 10:35 EDT [facility] HEMATOLOGY & ONCOLOGY [facility] MCHC 34.9 32.1 - 35.9 gm/dL 03/09/2023 10:35 EDT [facility] HEMATOLOGY & ONCOLOGY [facility] RDW-CV 13.0 <14.7 % 03/09/2023 10:35 EDT [facility] HEMATOLOGY & ONCOLOGY [facility] RDW-SD 42.1 <50.4 fl 03/09/2023 10:35 EDT [facility] HEMATOLOGY & ONCOLOGY [facility] PLT 213 141 - 377 K/cmm 03/09/2023 10:35 EDT [facility] HEMATOLOGY & ONCOLOGY [facility] MPV 8.8(L) 9.5 - 12.7 fl 03/09/2023 10:35 EDT [facility] HEMATOLOGY & ONCOLOGY [facility] % Neutrophils 57.0 % 03/09/2023 10:35 EDT [facility] HEMATOLOGY & ONCOLOGY [facility] % Lymphocytes 30.9 % 03/09/2023 10:35 EDT [facility] HEMATOLOGY & ONCOLOGY [facility] % Monocytes 8.3 % 03/09/2023 10:35 EDT [facility] HEMATOLOGY & ONCOLOGY - [place] % Eosinophils 3.6 % 03/09/2023 10:35 EDT [facility] HEMATOLOGY & ONCOLOGY [facility] % Basophils 0.2 % 03/09/2023 10:35 EDT [facility] HEMATOLOGY & ONCOLOGY [facility] % Immature Grans 03/09/20 10:35 EDT [facility] HEMATOLOGY & ONCOLOGY [facility] Absolute Neutrophils 3.14 2.20 - 8.85 K/cmm 03/09/2023 10:35 EDT [facility] HEMATOLOGY & ONCOLOGY [facility] Absolute Lymphocytes 1.70 1.09 - 3.30 K/cmm 03/09/2023 10:35 EDT [facility] HEMATOLOGY & ONCOLOGY [facility] Absolute Monocytes 0.46 0.10 - 0.80 K/cmm 03/09/2023 10:35 EDT [facility] HEMATOLOGY & ONCOLOGY [facility] Absolute Eosinophils 0.20 0.03 - 0.61 K/cmm 03/09/2023 10:35 EDT [facility] HEMATOLOGY & ONCOLOGY [facility] ABS Basophils 0.01 0.01 - 0.11 K/cmm 03/09/2023 10:35 EDT [facility] HEMATOLOGY & ONCOLOGY [facility] Absolute Immature Grans 03/09/2023 10:35 EDT [facility] HEMATOLOGY & ONCOLOGY [facility] Type of Differential: Auto 03/09/2023 10:35 EDT [facility] HEMATOLOGY & ONCOLOGY [facility] Blood VENOUS BLOOD / Unknown Venipuncture / Unknown 03/09/2023 10:09 EDT 03/09/2023 10:09 EDT Luz Maria Peter TITLE AGENT PACKAGES & DNA PRO BE ORDERABLES [facility] HEMATOLOGY & ONCOLOGY [facility] Medical Office [address], [address] documented in this encounter Visit Diagnoses Diagnosis 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)- Primary documented in this encounter Care Teams Livestock Producer Relationship Specialty Start Date End Date Clint Miramontes MD [address] [place] [address] PCP - General 08/23/19 documented as of this encounter
--- OUTSIDE RECORDS SUMMARY | 2024-08-07 13:37 | XMS_ITS | Encounter Summary ---
Author Organization [facility] Address [address] [place] [address] Care Team Providers Care Accounts Clerk Name Role Phone Clint Miramontes MD Primary Care Provider [phone] Reason for Visit * Reason Onset Date Comments Leg Pain 01/23/2023 Encounter Details Date Type Department Care Team (Late st Contact Info) Description 01/23/2023 Telephone [facility] - [address] [address] Maci Farrar RN Leg Pain Social History Tobacco Use Types Packs/Day Years [...] Telephone Encounter - Maci Farrar RN - 01/23/2023 1310 EDT Mel called with c/o leg pain. States she was shoveling last week and felt a sudden, deep pain near clavicle. She believes this pain 'traveled' to her leg. Last Thursday leg started to hurt. States she cannot bend leg back past 45 degrees. Feels like thereis a band that's holding her knee. Swelling present, minimal per Mel. Inside of side of kneehurts to touch. No redness, no red streaks. Usually able to walk miles, but she cannot do this right now. States instead of red, her knee looks Almost black and blue Other knee looks like she has abruise. No falls recently or injruy (had a fall 2 months ago but states she had no pain from this).No chest pain. No worsening SOB (has COPD). No cyanosis noted on toes. Scheduled for today at 1500. FYI documented in this encounter Plan of Treatment Upcoming Encounters Date Type Department Care Team (Late st Contact Info) Description 08/10/2024 16:00 EDT Appointment [facility] MRI [address] [place] [address] 08/16/2024 14:00 EDT EMILIA [facility] OBGYN Ultrasound [address] [place] [address] 08/29/2024 14:00 EDT Office Visit [facility] OBGYN [address] [place] [address] Ness Vilchis MD [address] [place] [address]A, [address] [place] [address] 08/31/2024 16:00 EDT Office Visit [facility] Orthopedics & Sport Medicine [address], [address] [place] [address] Reema Peoples PA-C [address] [facility] [address] [place] [address] 09/01/2024 9:30 EDT Office Visit [facility] Rheumatology [address] [facility], [place] [address] Lin Grider MD [address] [facility] [address] [place] [address] 11/08/2024 14:00 EST Office Visit [facility] Adult Hematology & Oncology [address] [place] [address], [place] [phone] Luz Maria Peter NP 130 [facility], [facility] [address] [place] [address] 11/22/2024 10:15 EST Office Visit [facility] Family Medicine - [place] [address] [place] [phone] Clint Miramontes MD [address] [place] [phone] documented as of this encounter Visit Diagnoses Not on filedocumented in this encounter Care Teams Accounts Clerk Relationship Specialty Start Date End Date Clint Miramontes MD [address] [place] [phone] PCP - General 08/23/19 documented as of this encounter
--- OUTSIDE RECORDS SUMMARY | 2024-08-07 13:37 | XMS_ITS | Encounter Summary ---
Author Organization [facility] Address [address] [place] [address] Care Team Providers Care Rehabilitator Name Role Phone Clint Miramontes MD Primary Care Provider Reason for Visit * Reason Onset Date Comments Medications Refill 10/28/2022 Encounter Details Date Type Department Care Team (Late st Contact Info) Description 10/28/[address] [address] Cecil Wyatt RN Medications Refill Social History Tobacco Use [...] encounter Miscellaneous Notes * Telephone Encounter - Cecil Wyatt, RN - 10/28/2022 0917 EST . documented in this encounter Plan of Treatment Upcoming Encounters Date Type Department Care Team (Late st Contact Info) Description 08/10/2024 16:00 EDT Appointment [facility] MRI [address] [place], [place] [phone] 08/16/2024 14:00 EDT EMILIA [facility] OBGYN Ultrasound [address] [place] [phone] 08/29/2024 14:00 EDT Office Visit [facility] OBGYN [address] [place] [phone] Ness Vilchis MD [address] [place], [place] [address], [address] [place] [phone] 08/31/2024 16:00 EDT Office Visit [facility] Orthopedics & Sport Medicine [address], [address] [place], [place] [phone] Reema Peoples PAToñoC [address] [facility] [address] [place], [place] [phone] 09/01/2024 9:30 EDT Office Visit [facility] Rheumatology [address] [place] [phone] Lin Grider MD [address] [place] [address] [address] [place] [phone] 11/08/2024 14:00 EST Office Visit [facility] Adult Hematology & Oncology [address] [place] [phone] Luz Maria Peter NP 130 [facility], [facility] [address] [place] [address] 11/22/2024 10:15 EST Office Visit [facility] Family Medicine - [address] [phone] Clint Miramontes MD [address] [place] [phone] documented as of this encounter Visit Diagnoses Not on filedocumented in this encounter Care Teams Rehabilitator Relationship Specialty Start Date End Date Clint Miramontes MD [address] [place] [phone] PCP - General 08/23/19 documented as of this encounter
--- OUTSIDE RECORDS SUMMARY | 2024-08-07 13:37 | XMS_ITS | Encounter Summary ---
Author Organization [facility] Address [address] [place] [address] Care Team Providers Care Audit Reviewer Name Role Phone Clint Miramontes MD Primary Care Provider [phone] Reason for Visit * Reason Onset Date Comments Results 02/02/2023 Encounter Details Date Type Department Care Team (Late st Contact Info) Description 02/02/2023 Telephone [facility] Family Medicine [address] [address] Clint Miramontes MD [address] [place] [phone] Results Social History Tobacco Use Types Packs/Day [...] Telephone Encounter - Maci Farrar RN - 02/03/2023 1306 EDT MC message sent * Telephone Encounter - Corina Edwards PA-C - 02/03/2023 1235 EDT Patient's XRAY showed some mild arthritis- I recommend Tylenol or Ibuprofen for pain. We can also consider her seeing PT or orthopedics for further pain management if she would like. * Telephone Encounter - Maci Farrar RN - 02/02/2023 1141 EDT Junie, seen by you on 01/23/23. Per your recommendations: Counseled patient on rest, compression, ice and elevation. Tylenol as needed for pain. XRAY ordered. Please advise on pain management based on X-ray results * Telephone Encounter - Mynor Cobb - 02/02/2023 1051 EDT [facility] and [facility] from recent knee xr. Patient is still experiencing pain and has some questions on pain management and if there is any treatment recommendations. documented in this encounter Plan of Treatment Upcoming Encounters Date Type Department Care Team (Late st Contact Info) Description 08/10/2024 16:00 EDT Appointment [facility] MRI [address] [place] [address] 08/16/2024 14:00 EDT EMILIA [facility] OBGYN Ultrasound [address] [place] [address] 08/29/2024 14:00 EDT Office Visit [facility] OBGYN [address] [place] [address] Ness Vilchis MD [address] [place], [place] [address], [address] [place] [phone] 08/31/2024 16:00 EDT Office Visit [facility] Orthopedics & Sport Medicine [address], [address] [place] [address] Reema Peoples, PA-C [address] [facility] [address] [place] [address] 09/01/2024 9:30 EDT Office Visit [facility] Rheumatology [address] [place] [phone] Lin Grider MD [address] [place] [address] [address] [place] [address] 11/08/2024 14:00 EST Office Visit [facility] Adult Hematology & Oncology [address] [place] [address] Luz Maria Peter, GABRIEL [address] [place], [place] [address] [address] [place] [address] 11/22/2024 10:15 EST Office Visit [facility] Family Medicine - [place] [address] [place] [address] Clint Miramontes MD [address] [place] [phone] documented as of this encounter Visit Diagnoses Not on filedocumented in this encounter Care Teams Audit Reviewer Relationship Specialty Start Date End Date Clint Miramontes MD [address] [place] [phone] PCP - General 08/23/19 documented as of this encounter
--- OUTSIDE RECORDS SUMMARY | 2024-08-07 13:37 | XMS_ITS | Encounter Summary ---
Author Organization [facility] Address [address] [place] [address] Care Team Providers Care Lap Grinder Name Role Phone Clint Miramontes MD Primary Care Provider [phone] Reason for Referral * Radiology Services (Routine/Next Available) - Authorization Not Required Specialty Diagnoses / Procedures Referred By Contac malik Referred To Contact Diagnoses Encounter for screening mammogram for malignant neoplasm of breast Procedures MA BREAST SCREENING ELO BILATERAL Clint Miramontes MD [address] [place] [address] [facility] Referral ID Status Reason Start Date Expiration Date Visits Requested Visits Authorized [id number] Authorization Not Required 05/15/2022 1 1 Reason for Visit * Radiology Services (Routine/Next Available) - Authorization Not Required Specialty Diagnoses / Procedures Referred By Annia gan Referred To Contact Diagnoses Encounter for screening mammogram for malignant neoplasm of breast Procedures MA BREAST SCREENING EOL BILATERAL Clint Miramontes MD [address] [place] [address] [facility] Referral ID Status Reason Start Date Expiration Date Visits Requested Visits Authorized [id number] Authorization Not Required 05/15/2022 1 1 Encounter Details Date Type Department Care Team (Latest Contact Info) Description 06/20/2022 6:58 EDT - 06/20/2022 23:59 EDT Hospital Encounter [facility] Mammography [address] [place] [address] Encounter for screening mammogram for malignant neoplasm [...] - - Weight 44.9 kg (99 lb) 06/20/2022 0743 EDT Height 148.6 cm (4' 10.5) 06/20/2022 0743 EDT Body Mass Index 20.34 06/20/2022 0743 EDT documented in this encounter Functional Status [...] Contact Info) Description 08/10/2024 16:00 EDT Appointment [facility] MRI [address] [place] [address] 08/16/2024 14:00 EDT EMILIA [facility] OBGYN Ultrasound [address] [place] [address] 08/29/2024 14:00 EDT Office Visit [facility] OBGYN [address] [place] [address] Ness Vilchis MD [address] [place] [address], [address] [place] [phone] 08/31/2024 16:00 EDT Office Visit [facility] Orthopedics & Sport Medicine [address], [address] [place], [place] [phone] Reema Peoples PA-C [address] [facility] [address] [place], [place] [phone] 09/01/2024 9:30 EDT Office Visit [facility] Rheumatology [address] [place] [phone] Lin Grider MD [address] [facility] [address] [place] [address] 11/08/2024 14:00 EST Office Visit [facility] Adult Hematology & Oncology [address] [place], [place] [phone] Luz Maria Peter NP [address] [facility], [address] [place] [address] 11/22/2024 10:15 EST Office Visit [facility] Family Medicine - [place] [address] [place] [address] Clint Miramontes MD [address] [place] [phone] documented as of this encounter Procedures Procedure Name Priority Date/Time Associated Diagnosis Comments MA BREAST SCREENING ELO BILATERAL Routine 06/20/2022 7:25 EDT Encounter for screening mammogram for malignant neoplasm of breast documented in this encounter Results * MA BREAST SCREENING ELO BILATERAL (06/20/2022 7:25 EDT) Anatomical Region Laterality Modality Breast Bilateral Mammography 06/20/2022 14:3 9 EDT Impressions 06/20/2022 14:39 EDT Negative, no evidence of malignancy. RECOMMENDATION: Routine screening mammography is recommended. OVERALL ASSESSMENT: BI-RADS 1: Negative These results will be communicated to your patient via a lay letter from Radiology. If any additional imaging is needed we will contact your patient directly. Narrative 06/20/2022 14:39 EDT MA BREAST SCREENING ELO BILATERAL ??06/20/2022 7:10 AM History: SCREENING Comparison: ??Comparison has been made to previous images. Technique: Routine 3D tomosynthesis with synthesized 2D views with CAD Bilateral Breast Composition: There are scattered areas of fibroglandular density. Bilateral Breast Findings: ??No significant masses, calcifications or other abnormalities are seen. Procedure Note Reji Carroll MD - 06/20/2022 MA BREAST SCREENING ELO BILATERAL 06/20/2022 7:10 AM History: SCREENING Comparison: Comparison has been made to previous images. Technique: Routine 3D tomosynthesis with synthesized 2D views with CAD Bilateral Breast Composition: There are scattered areas of fibroglandulardensity. Bilateral Breast Findings: No significant masses, calcifications or otherabnormalities are seen. IMPRESSION Negative, no evidence of malignancy. RECOMMENDATION: Routine screening mammography is recommended. OVERALL ASSESSMENT: BI-RADS 1: Negative These results will be communicated to your patient via a lay letter fromRadiology. If any additional imaging is needed we will contact yourpatient directly. Clint Miramontes MD IMG MAMMOGRAPHY [facility] documented in this encounter Visit Diagnoses Diagnosis Encounter for screening mammogram for malignant neoplasm of breast Other screening mammogram documented in this encounter Care Teams Lap Grinder Relationship Specialty Start Date End Date Clint Miramontes MD [address] [place] [phone] PCP - General 08/23/19 documented as of this encounter
--- OUTSIDE RECORDS SUMMARY | 2024-08-07 13:37 | XMS_ITS | Encounter Summary ---
Author Organization [facility] Address [address] [place] [address] Care Team Providers Care Issuer Name Role Phone Clint Miramontes MD Primary Care Provider [phone] Reason for Referral * Laboratory Services (Routine/Next Available) - New Request Specialty Diagnoses / Procedures Referred By Annia gan Referred To Contact Diagnoses Mixed hyperlipidemia Procedures LIPID PROFILE (INCLUDES CHOLESTEROL, TRIGLYCERIDES, HDL, LDL) Clint Miramontes MD [address] [place] [address] Referral ID Status Reason Start Date Expiration Date V isits Requested Visits Authorized [id number] New Request 09/15/2022 1 1 * Laboratory Services (Routine/Next Available) - New Request Specialty Diagnoses / Procedures Referred By Annia gan Referred To Contact Diagnoses Mixed hyperlipidemia Procedures COMPREHENSIVE METABOLIC PANEL (CMP) Clint Miramontes MD [address] [place] [address] Referral ID Status Reason Start Date Expiration Date V isits Requested Visits Authorized [id number] New Request 09/15/2022 1 1 Reason for Visit * Reason Comments Medication Management Encounter Details Date Type Department Care Team (Latest Contact Info) Description 09/15/2022 10:30 EST Office Visit [facility] Family Medicine - [place] [address] [place] [address] Clint Miramontes MD [address] [place] [phone] Gastroesophageal reflux disease, unspecified whether esophagitis present (Primary Dx); Mixed hyperlipidemia; 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 ([facility]); Chronic obstructive pulmonary disease, unspecified COPD type ([facility]) Social History Tobacco Use Types Packs/Day Years [...] Sign Reading Time Taken Comments Blood Pressure 140/78 09/15/2022 1034 EST Pulse 72 09/15/2022 1034 EST Temperature - - Respiratory Rate - - Oxygen Saturation 100% 09/15/2022 1034 EST Inhaled Oxygen Concentration - - Weight 46.7 kg (103 lb) 09/15/2022 1034 EST Height - - Body Mass Index 21.16 [...] Progress Notes * Denise Germain RN - 09/15/2022 1030 EST Last CSA signed 6/20/22. VPMS printed and reviewed by PCP * Clint Miramontes MD - 09/15/2022 1030 EST Subjective: Patient ID: Mel Ramirez is an 72 y.o. female. Chief Complaint Patient presents with ??? Medication Management HPI 1) Lipids - managed with lipid medications. ??No side effects. 2) COPD - using MDI albuterol and Flovent. No chronic cough. ??No chest pains. No shortness of breath. 3) Anxiety - sparing use of lorazapam. ??No SI/HI. ??No panic attacks. 4)Marginal Zone lymphoma - doing well. ??No B symptoms. ?Seeing Dr. Ricci routinely.??Dr. Ames: Clinically she is doing well with no evidence of B symptoms or palpable bulky lymphadenopathy.?CT abdomen/pelvis from July 2021 showed no evidence of any lymphadenopathy. ??Blood counts reviewed and wnl. ??Will continue to follow her on observation. Patient Active Problem List Diagnosis ??? Cerebral [...] daily. As needed) 1 Each 3 ??? cholecalciferol, Vitamin D3, 25 mcg (1,000 unit) tablet Take 2,000 Units by mouth daily. ??? diazePAM (VALIUM) 2 mg tablet 1 tab PO bid PRN fying. (Patient not taking: Reported on 09/15/2022) 6 Tablet 3 ??? fluticasone propionate (FLOVENT [...] differently: Take 1 mg by mouth at bedtime.) 30 Tablet 3 ??? lovastatin (MEVACOR) 40 [...] edibles ROS - See HPI Objective: BP 140/78 Pulse 72 Wt 46.7 kg (103 lb) SpO2 100% BMI 21.16 kg/m?? Wt Readings from Last 3 Encounters: 09/15/22 46.7 kg (103 lb) 09/08/22 48.1 kg (106 lb) 08/18/22 46.4 kg (102 lb 3.2 oz) BP Readings from Last 3 Encounters: 09/15/22 140/78 09/08/22 104/54 08/18/22 (!) 144/74 Physical Exam Gen: Alert and oriented. No distress \. Cardiovascular: Normal rate, regular rhythm and normal heart sounds. No murmurs. Pulmonary/Chest: Effort normal and breath sounds normal. Abdomen: soft NT/ND. No hepatosplenomegaly Musculoskeletal: Normal range of motion. Neuro: no gross defects. Skin: Skin is warm. No rash. Lymph: no lymphadenopathy. Psychiatric: normal mood and affect. Assessment: Lymphoma - follow up with Oncology. ? Lipids - conitnue statin. ? Labs at next viist. Anxiety - managed with prn lorazapam. ?She is not interested in SSRIs. ?No SI/HI. Follow up with me in 4-6 mo Plan: There are no diagnoses linked to this encounter. No follow-ups on file. documented in this encounter Plan of Treatment Upcoming Encounters Date Type Department Care Team (Late st Contact Info) Description 08/10/2024 16:00 EDT Appointment [facility] MRI [address] [place], [place] [phone] 08/16/2024 14:00 EDT EMILIA [facility] OBGYN Ultrasound [address] [place] [address] 08/29/2024 14:00 EDT Office Visit [facility] OBGYN [address] [place], [place] [phone] Ness Vilchis MD [address] [facility], [address] [place] [address] 08/31/2024 16:00 EDT Office Visit [facility] Orthopedics & Sport Medicine [address], [address] [place], [place] [phone] Reema Peoples PA-C [address] [facility] [address] [place] [address] 09/01/2024 9:30 EDT Office Visit [facility] Rheumatology [address] [facility] [place] [phone] Lin Grider MD 130 [facility] [address] [place] [address] 11/08/2024 14:00 EST Office Visit [facility] Adult Hematology & Oncology [address] [place] [address], [place] [address] Luz Maria Peter NP 130 [facility], [facility] [address] [place] [address] 11/22/2024 10:15 EST Office Visit [facility] Family Medicine - [place] [address] [place] [address] Clint Miramontes MD [address] [place] [phone] documented as of this encounter Results * LIPID PROFILE (INCLUDES CHOLESTEROL, TRIGLYCERIDES, HDL, LDL) (03/25/2023 6:51 EDT) Cholesterol 165 <200 mg/dL 03/25/2023 8:15 EDT [facility] Comment:Note that therapeuti c goals will differ between patients based on cardiac risk factors and current medical therapy. HDL 59 >=50 mg/dL 03/25/2023 8:15 T [facility] Comment:Note that therapeuti c goals will differ between patients based on cardiac risk factors and current medical therapy. LDL, Calculated 94 <160 mg/dL 8:15 T [facility] Comment:Note that therapeuti c goals will differ between patients based on cardiac risk factors and current medical therapy. Triglyceride 61 <=150 mg/dL 03/25/2023 8:15 [facility] Comment:Note that therapeuti c goals will differ between patients based on cardiac risk factors and current medical therapy. Chol/HDL Ratio 2.8 See Note 03/25/2023 8:15 [facility] Comment: NOTE: Desirable Ratio = <4.1 Patient At Risk Ratio = >5.0(Males) ?>6.0(Females) Non HDL Cholesterol 106 <160 mg/dL 03/25/2023 8:15 [facility] Comment:Note that therapeuti c goals will differ between patients based on cardiac risk factors and current medical therapy. Blood VENOUS BLOOD / Unknown Venipuncture / Unknown 03/25/2023 6:51 EDT 03/25/2023 7:34 EDT Clint Miramontes MD CHEMISTRY & BLOOD GA S ORDERABLES Performing Organization Address City/State/[facility] Co de Phone Number [facility] [address] [place] [address] * COMPREHENSIVE METABOLIC PANEL (CMP) (03/25/2023 6:51 EDT) Sodium 141 136 - 145 mmol/L 03/25/2023 8:15 [facility] Potassium 4.4 3.5 - 5.0 mmol/L 03/25/2023 8:15 [facility] Chloride 105 96 - 110 mmol/L 03/25/2023 8:15 [facility] CO2 Total 29 22 - 32 mmol/L 03/25/2023 8:15 [facility] Glucose 95 70 - 100 mg/dl 03/25/2023 8:15 [facility] BUN 17 10 - 26 mg/dL 03/25/2023 8:15 [facility] Creatinine 0.58 0.52 - 1.04 mg/dL 03/25/2023 8:15 [facility] eGFR 95 >60 mL/min/1.7 3m2 03/25/2023 8:15 [facility] Total Protein 6.8 6.3 - 8.2 g/dL 03/25/2023 8:15 [facility] Albumin 4.1 3.4 - 4.9 g/dL 03/25/2023 8:15 [facility] Alkaline Phosphatase 47 38 - 126 U/L 03/25/2023 8:15 [facility] AST 25 15 - 46 U/L 03/25/2023 8:15 [facility] ALT 20 <35 U/L 03/25/2023 8:15 [facility] Bilirubin, Total 0.8 <1.4 mg/dL 03/25/20 8:15 [facility] Calcium 9.0 8.5 - 10.5 mg/dL 03/25/2023 8:15 [facility] Albumin/Globulin Ratio 1.5 1.0 - 2.5 03/25/2023 8:15 [facility] Anion Gap 7 5 - 14 mmol/L 03/25/2023 8:15 [facility] Blood VENOUS BLOOD / Unknown Venipuncture / Unknown 03/25/2023 6:51 EDT 03/25/2023 7:34 EDT Clint Miramontes MD CHEMISTRY & BLOOD GA S ORDERABLES [facility] [address] [place] [address] documented in this encounter Visit Diagnoses Diagnosis Gastroesophageal reflux disease, unspecified whether esophagitis present- Primary Mixed hyperlipidemia 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) Chronic obstructive pulmonary disease, unspecified COPD type (HCC-CMS) documented in this encounter Care Teams Issuer Relationship Specialty Start Date End Date Clint Miramontes MD [address] [place] [phone] PCP - General 08/23/19 documented as of this encounter
--- OUTSIDE RECORDS SUMMARY | 2024-08-07 13:37 | XMS_ITS | Encounter Summary ---
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) (Primary Dx); Cerebral aneurysm, nonruptured Social History Tobacco Use Types Packs/Day Years [...] Sign Reading Time Taken Comments Blood Pressure 104/54 09/08/2022 1457 EST Pulse 48 09/08/2022 1457 EST Temperature - - Respiratory Rate - - Oxygen Saturation 92% 09/08/2022 1457 EST Inhaled Oxygen Concentration - - Weight 48.1 kg (106 lb) 09/08/2022 1457 EST Height - - Body Mass Index 21.78 08/18/2022 0938 EDT documented in this encounter [...] encounter Progress Notes * Luz Maria Peter, [employer] - 09/08/2022 1500 EST CC: Chief Complaint Patient presents with ??? Follow-up Hematology/Oncology Problem List: ?? Diagnosis ??? Lymphoma [...] the setting of marginal zone lymphoma. She denies newadenopathy, night sweats or unintentional weight loss. 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 Review of Systems: All 10 systems have [...] medications for this visit. Objective: VS: BP 104/54 Pulse (!) 48 Wt 48.1 kg (106 lb) SpO2 92% BMI 21.78 kg/m?? Social History Socioeconomic History ??? Marital [...] orders placed or performed in visit on 08/11/22 COMPREHENSIVE METABOLIC PANEL (CMP) Result Value Ref Range Sodium 139 136 - 145 mmol/L Potassium 4.8 3.5 - 5.0 mmol/L Chloride 103 96 - 110 mmol/L CO2 Total 29 22 - 32 mmol/L Glucose 98 70 - 100 mg/dL BUN 14 10 - 26 mg/dL Creatinine 0.57 0.52 - 1.04 mg/dL eGFR 96 >60 mL/min/1.73m2 Total Protein 7.3 6.3 - 8.2 g/dL Albumin 4.7 3.4 - 4.9 g/dL Alkaline Phosphatase 65 38 - 126 U/L AST 26 15 - 46 U/L ALT 20 <35 U/L Bilirubin, Total 0.9 <1.4 mg/dL Calcium 9.6 8.5 - 10.5 mg/dL Albumin/Globulin Ratio 1.8 1.0 - 2.5 Anion Gap 7 5 - 14 VITAMIN D (25,OH) Result Value Ref Range 25OH Vitamin D Tot 44 30 - 100 ng/mL Assessment/Plan: Ms. Ramirez is a 72 yo female with marginal zone lymphoma on surveillance. CT scans from 05/27/22 reviewed with showed no evidence of pathologically enlarged nodes. YASIR on PE today. Continue 3 month follow up. Cc: Clint Miramontes MD 30 minutes in face to face contact with 25 minutes counseling side effect, treatment management andcoordination of care. Luz Maria Peter ANP/QUALITY CONTROL TECH [facility] Adult Hematology & Oncology * Pk Shelton LPN - 09/08/2022 1500 EST Suspicion of Abuse: no - If yes, please document evidence: - Assessed on: 09/08/22 14:57 - Assessed by: PK SHELTON LPN documented in this encounter Plan of Treatment Upcoming Encounters Date Type Department Care Team (Late st Contact Info) Description 08/10/2024 16:00 EDT Appointment [facility] MRI [address] [place], [place] [phone] 08/16/2024 14:00 EDT EMILIA [facility] OBGYN Ultrasound [address] [place], [place] [phone] 08/29/2024 14:00 EDT Office Visit [facility] OBGYN [address] [place], [place] [phone] Ness Vilchis MD 130 [facility] [address] [place] [address] 08/31/2024 16:00 EDT Office Visit [facility] Orthopedics & Sport Medicine [address] [place] [address] Reema Peoples PA-C [address] [facility] [address] [place], [place] [address] 09/01/2024 9:30 EDT Office Visit [facility] Rheumatology 130 [facility], [place] [phone] Lin Grider MD 130 [facility] [address] [place] [address] 11/08/2024 14:00 EST Office Visit [facility] Adult Hematology & Oncology [address] [place] [address], [place] [address] Luz Maria Peter NP 130 [facility], [facility] [address] [place] [address] 11/22/2024 10:15 EST Office Visit [facility] Family Medicine - [place] [address] [place], [place] [phone] Clint Miramontes MD [address] [place] [phone] documented as of this encounter Visit Diagnoses Diagnosis 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
--- OUTSIDE RECORDS SUMMARY | 2024-08-07 13:37 | XMS_ITS | Encounter Summary ---
Author Organization [facility] Address [address] [place] [address] Care Team Providers Care Wireless Communications Engineer Name Role Phone Clint Miramontes MD Primary Care Provider [phone] Reason for Visit * Auth/Cert Specialty Diagnoses / Procedures Referred By Annia gan Referred To Contact Referral ID Status Reason Start Date Expiration Date Visits Re quested Visits Authorized [id number] 1 1 Encounter Details Date Type Department Care Team (Latest Contact Info) Description 10/02/2022 9:24 EST - 10/02/2022 23:59 EST Hospital Encounter [facility] - [facility] Infusion [address] [place] [address] Age-related osteoporosis without current pathological fracture (Primary [...] Sign Reading Time Taken Comments Blood Pressure 145/62 10/02/2022 0934 EST Pulse - - Temperature 36.1 ??C (97 ??F) 10/02/2022 0934 EST Respiratory Rate 16 10/02/202234 EST Oxygen Saturation 100% 10/02/202234 EST Inhaled Oxygen Concentration - - Weight - - Height - - Body Mass Index - - documented in this encounter Functional Status Functional [...] as of this encounter Discharge Instructions * Discharge Instructions* Bharti Wilson RN - 10/02/2022 9:06 EST Zoledronic Acid (Reclast) Zoledronic Acid, also called zoledronate or Reclast, is a once yearly infusion to reduce your risk of breaking a bone from osteoporosis. Before the Treatment Lab work is completed 2 -3 weeks prior to the infusion to check your calcium and kidney functions to make sure zoledronic acid is right for you. Please drink at least 2 cups of water within a few hours prior to the infusion. Drink extra fluids so you will pass more urine while you are using this medicine. This will keep your kidneys working well and help prevent kidney problems. You should eat normally before your treatment. Due to a very rare effect of delayed healing of jaw bone after dental surgery which can occur with most of the treatments used for osteoporosis, please let us know if you have had in the last 3 months or plan to have in the next 6 months any dental surgery where your bone would be affected such as removing a tooth or doing an implant. We may want to reschedule your treatment. After the Treatment Resume your normal activity. Continue to take calcium and vitamin D as recommended by your provider to help maintain blood calcium levels. Possible Side Effects While Using This Medicine If you notice these less serious side effects, talk with your doctor as these are common side effects: Most occur within one to three days of treatment and can last up to 14 days. Feeling agitated, confused, or depressed. Headache or trouble sleeping. Mild nausea, diarrhea, constipation, stomach pain, or upset stomach. Mild skin rash or itching. Numbness, tingling, or burning pain in your hands, arms, legs, or feet. Redness, pain, or swelling of your skin where the needle is placed. Call your doctor right away if you notice any of these side effects: Allergic reaction: Itching or hives, swelling in your face or hands, swelling or tingling in your mouth or throat, chest tightness, trouble breathing. Blood in the urine, new onset lower back pain, side pain, or sharp back pain just below the ribs. Chest pain. Decrease in how much or how often you urinate, or have burning or painful urination. Dry mouth, increased thirst, or muscle cramps. Fast, slow, or uneven heartbeat. Fever, chills, cough, sore throat, and body aches. Lightheadedness, dizziness, or fainting. Loss of appetite, nausea, vomiting, sleepiness, or changes in personality. Muscle weakness, spasm, or tremor. Numbness and tingling around the mouth. Pain or other problems with your teeth or jaw. Pale skin. Rapid weight gain. Redness, irritation, or pain in your eyes. Severe muscle, bone, or joint pain. Shortness of breath or troubled breathing. Swelling in your hands, ankles, or feet. Unusual bleeding or bruising. Unusual tiredness or weakness. If you notice other side effects that you think are caused by this medicine, tell your doctor. Call your doctor for medical advice about side effects. When This Medicine Should Not Be Used: If you are receiving Zometa you should not receive Reclast as they both contain zoledronic acid. You should not receive this medicine if you have had an allergic reaction to zoledronic acid or to similar medicines such as alendronate (Fosamax??), etidronate (Didronel??), ibandronate (Boniva), pamidronate (Aredia??), risedronate (Actonel??), or tiludronate (Skelid??). You should not receive this medicine if you are or , or if you have low calcium in the blood (hypocalcemia) or severe kidney disease. Other Medication Your provider should have a list of all of your medications. If you should start any new medications prior to your infusion, let your provider's office know this prior to coming for the infusion. Warnings While Using This Medicine: Using this medicine while you are can harm your unborn baby. Use an effective form of control to keep from getting . If you think you have become while using the medicine, tell your doctor right away. Prior to your infusion, you should have discussed all of your health problems and medication with the provider ordering your zoledronic acid treatment. Make sure any doctor or dentist who treats you knows that you are using this medicine, especially if you are having dental surgery. You should avoid having major dental work done while you are being treated with this medicine. This medicine has, on rare occasion, been associated with developing fractures of the thigh bone. This may be more common if you use it for a long time. Check with your doctor right away if you have a dull or aching pain in the thighs, groin, or hips. documented in this encounter Medications at Time [...] 1 mg 30 Tablet 3 08/15/2022 12/16/2022 lovastatin (MEVACOR) 40 mg tablet TAKE TWO [...] Description 08/10/2024 16:00 EDT Appointment [facility] MRI [address] [place], [place] [address] 08/16/2024 14:00 EDT EMILIA [facility] OBGYN Ultrasound [address] [place] [address] 08/29/2024 14:00 EDT Office Visit [facility] OBGYN [address] [place] [address] [phone] Ness Vilchis MD [address] [place] [address], [address] [place] [address] 08/31/2024 16:00 EDT Office Visit [facility] Orthopedics & Sport Medicine [address], [address] [place], [place] [phone] Reema Peoples PA-C 13[address] [facility] [address] [place], [place] [address] 09/01/2024 9:30 EDT Office Visit [facility] Rheumatology [address] [place] [phone] Lin Grider MD [address] [place], [place] [address]B [address] [place] [address] 11/08/2024 14:00 EST Office Visit [facility] Adult Hematology & Oncology [address] [place] [phone] Luz Maria Peter NP [address] [place], [place] [address]B [address] [place] [address] 11/22/2024 10:15 EST Office Visit [facility] Family Medicine - [place] [address] [place], [place] [address] Clint Miramontes MD [address] [place] [phone] documented as of this encounter Visit Diagnoses Diagnosis Age-related osteoporosis without current pathological fracture- Primary Senile osteoporosis documented in this encounter Administered Medications Inactive Administered Medications - up to 3 most recent administrations Medication Order MAR Action Action Date Dose Rate Site acetaminophen (TYLENOL) tablet 650 mg 650 mg, oral, NOW X1, 1 dose, On Corinna 10/02/22 at 1000, Routine Given 10/02/2022 9:36 EST 650 mg zoledronic acid (RECLAST) 5 mg/100 mL IVPB 5 mg 5 mg, intravenous, Administer over 20 Minutes, NOW X1, 1 dose, On Corinna 10/02/22 at 1030, Routine New Bag 10/02/2022 9:36 EST 5 mg 30 0 mL/hr documented in this encounter Orders Medications Ordered That Allan ht Not Have Been Administered Count Last Ordered Date First Ordered Date sodium chloride 0.9 % (flush) flush 20 mL 2 10/02/2022 documented in this encounter Care Teams Wireless Communications Engineer Relationship Specialty Start Date End Date Clint Miramontes MD [address] [place] [phone] PCP - General 08/23/19 documented as of this encounter
--- OUTSIDE RECORDS SUMMARY | 2024-08-07 13:37 | XMS_ITS | Encounter Summary ---
Author Organization [facility] Address [address] [place] [address] Care Team Providers Care Drywall Taper Helper Name Role Phone Clint Miramontes MD Primary Care Provider [phone] Reason for Referral * PT/OT/ST (Routine/Next Available) - Closed Specialty Diagnoses / Procedures Referred By Annia gan Referred To Contact Rehab Therapies Diagnoses Left knee pain, unspecified chronicity Reema Peoples PA-C [address] [address] [facility] [address] [place] [id number] Referral ID Status Reason Start Date Expiration Date V isits Requested Visits Authorized [id number] Closed Specialty Services Required 03/09/2023 1 1 Question Answer Reason for Request: Left knee pain Comments This referral may serve as a referral to occupational therapy if appropriate. Left knee pain - Evaluate and treat Reason for Visit * Reason Comments New Patient Visit Encounter Details Date Type Department Care Team (Late st Contact Info) Description 03/09/2023 11:15 EDT Office Visit [facility] - [facility] Orth[facility]ics & Sport Medicine [address], [address] [place], [place] [phone] Reema Peoples PA-C 1311 [facility] [address] [place] [phone] Left knee pain, unspecified chronicity (Primary Dx) [...] Progress Notes * Reema Peoples PA-C - 03/09/2023 1115 EDT PCP 01/23/23 - left knee pain x1 week No injury Swelling XR ordered XR left knee 01/23/23 - ??IMPRESSION Mild degenerative changes of the knee. Late December, missed step Everything hurts Noticed knee swelling started in December Limited ROM No PT No pain before December No injection Pain gets up to a 8/10 No injection CHIEF COMPLAINT: Left knee pain SUBJECTIVE: Mel Ramirez is a 72 y.o. right hand dominant female who presents today with left knee pain. She missed a step in late December, landed on the knee. Since then, she noticed knee swelling which began a few weeks later. It has limited her range of motion. Tylenol not helpful. She is unable to take ibuprofen due to GI side effects. She has not used any topicals, she has had no physical therapy. 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 She is on her feet for work. She does notice pain and swelling around the knee. It is getting a little bit better at this point, but she still has some fairly significant symptoms. Arthritis runs in her family. She recalls that her momhad a Ralph's cyst. Denies leonila groin pain. The past medical, family and social history have been reviewed in the patient chart. I spent time preparing in advance of the visit today, which included obtaining and reviewing prior history and notes from the primary care provider and/or referring providers, as well as reviewing any relevant prior imaging and tests, which I also independently interpreted today Past Medical History: Diagnosis Date ??? Aneurysm ([facility]) (HCC) ??? 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 Chronic obstructive pulmonary disease ([facility]) 10/06/2019 ??? 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 Hypercholesteremia ??? Inguinal lymphadenopathy ??? Osteoporosis 10/06/2019 ??? Psychiatric problem anxiety Social History Tobacco Use ??? Smoking status: Former Packs/day: 1.00 Types: Cigarettes Start date: 1963 Quit date: 07/03/1982 Years since quittin.7 ??? Smokeless tobacco: Never ??? Tobacco comments: 1981 quit Substance Use Topics ??? Alcohol use: No Past Surgical History: Procedure Laterality Date ??? HERNIA REPAIR left groin ??? LYMPH NODE BIOPSY left neck & node removal ??? TONSILLECTOMY ??? VAGINAL PROLAPSE REPAIR Allergies Allergen Reactions ??? Crestor [Rosuvastatin] Rash ??? Other - See Comments Wasp stings- swollen local reactions ??? Pravastatin Rash Current Outpatient Medications on File [...] ecchymosis, joint deformity or atrophy. Joint effusion, mild to moderate in the left knee. Range of motion is full in extension, she has limited flexion. Palpable Ralph's cyst, and tenderness to palpation minimally over this area. No tenderness medial lateral joint lines. Negative bounce home, mildly positive Kevin's. Stable to varus and valgus stress testing with negative Cynthia's, negative anterior drawer. Good strength quadriceps, hamstrings. No pain withhip rotation. Prior radiographs of the knee independently reviewed. Very mild degenerative changes, tricompartmental. ASSESSMENT: Early knee osteoarthritis/degenerative meniscus PLAN: After reviewing the prior separately obtained patient history, imaging and tests, and performing my examination and evaluation, I counseled and educated the patient today about her knee pain and the etiology. I discussed her treatment options at this time and would recommend physical therapy for her. A referral was placed. She is unable to take anti-inflammatories and therefore does want anaspiration today along with a steroid injection. She will follow-up via telemedicine in about 3 weeks or so. All questions were answered, she was pleased with the plan. Dr. Marquez was the attending physician available in the clinic today if needed. A consultation was not required. This note was prepared using voice recognition software and the EMR. There may be inadvertent errors and omissions. BARNEY Ponce 03/09/2023 * Reema Peoples PA-C - 03/09/2023 1115 EDTAssociated Order(s): Large Joint Injection/Arthrocentesis: L knee Post-Procedure Diagnose(s): Left knee pain, unspecified chronicity Procedure: Large Joint Injection/Arthrocentesis: L knee on 03/09/2023 11:15 Indications: pain Details: 22 G needle, anterolateral approach Medications: 80 mg methylPREDNISolone ACETATE 80 mg/mL; 5 mL lidocaine (PF) 10 mg/mL (1 %) Aspirate: 5 mL Outcome: tolerated well, no immediate complications Procedure, treatment alternatives, risks and benefits explained, specific risks discussed. Consent was given by the patient. Immediately prior to procedure a time out was called to verify the correctpatient, procedure, equipment, application support consultant and site/side marked as required. Patient was prepped and draped in the usual sterile fashion. documented in this encounter Plan of Treatment Upcoming Encounters Date Type Department Care Team (Late st Contact Info) Description 08/10/2024 16:00 EDT Appointment [facility] MRI [address] [place] [address] 08/16/2024 14:00 EDT EMILIA [facility] OBGYN Ultrasound [address] [place] [address] 08/29/2024 14:00 EDT Office Visit [facility] OBGYN [address] [place] [address] Ness Vilchis MD [address] [place] [address]A, [address] [place] [phone] 08/31/2024 16:00 EDT Office Visit [facility] Orthopedics & Sport Medicine [address], [address] [place], [place] [phone] Reema Peoples PA-C 1311 [facility] [address] [place], [place] [phone] 09/01/2024 9:30 EDT Office Visit [facility] Rheumatology [address] [place], [place] [phone] Lin Grider MD 130 [facility] [address] [place] [address] 11/08/2024 14:00 EST Office Visit [facility] Adult Hematology & Oncology [address] [place] [address], [place] [phone] Luz Maria Peter NP 130 [facility] [address] [place] [address] 11/22/2024 10:15 EST Office Visit [facility] Family Medicine - [place] [address] [place] [phone] Clint Miramontes MD [address] [place] [phone] Scheduled Referrals Name Type Priority Associated Diagnoses Order Schedule AMB CONS/FOLLOW UP PHYSICAL THERAPY - [facility] Outpatient Referral Routine/Next Available Left knee pain, unspecified chronicity Expected: 03/16/2023 (Approximate), Expires: 03/09/2024 documented as of this encounter Procedures Procedure Name Priority Date/Time Associated Diagnosis Comments LARGE JOINT INJECTION/ARTHROCEN TESIS Routine 03/09/2023 11:15 EDT Left knee pain, unspecified chronicity documented in this encounter Results * RI ARTHROCENTESIS ASPIR&/INJ MAJOR JT/BURSA W/O US (03/09/2023 11:15 EDT) Narrative [facility] POINT OF CARE - 03/09/2023 11:15 EDT Reema Peoples PA-C ? 03/09/2023 12:58 Large Joint Injection/Arthrocentesis: L knee on 03/09/2023 11:15 Indications: pain Details: 22 G needle, anterolateral approach Medications: 80 mg methylPREDNISolone ACETATE 80 mg/mL; 5 mL lidocaine (PF) 10 mg/mL (1 %) Aspirate: 5 mL Outcome: tolerated well, no immediate complications Procedure, treatment alternatives, risks and benefits explained, specific risks discussed. Consent was given by the patient. Immediately prior to procedure a time out was called to verify the correct patient, procedure, equipment, application support consultant and site/side marked as required. Patient was prepped and draped in the usual sterile fashion. Reema Peoples PA-C PROCEDURE/ND NOR SURGICAL ORDERABLES [facility] POINT OF CARE documented in this encounter Visit Diagnoses Diagnosis Left knee pain, unspecified chronicity- Primary documented in this encounter Administered Medications Inactive Administered Medications - up to 3 most recent administrations Medication Order MAR Action Action Date Dose Rate Site lidocaine (PF) 10 mg/mL (1 %) injection 5 mL 5 mL, other, Once PRN Procedure, 1 dose, Starting on Thu03/09/23 at 1115, Until Thu03/09/23 at 1115, Routine Given 03/09/2023 11:15 EDT 5 mL methylPREDNISolone ACETATE (DEPO-MEDROL) injection 80 mg 80 mg, intra-articular, Once PRN Procedure, 1 dose, Starting on 03/09/23 at 1115, Until 03/09/23 at 1115, Routine Given 03/09/2023 11:15 EDT 80 mg documented in this encounter Care Teams Drywall Taper Helper Relationship Specialty Start Date End Date Clint Miramontes MD [address] [place] [phone] PCP - General 08/23/19 documented as of this encounter
--- OUTSIDE RECORDS SUMMARY | 2024-08-07 13:37 | XMS_ITS | Encounter Summary ---
Author Organization [facility] Address [address] [place] [address] Care Team Providers Care Senior Java Engineer Name Role Phone Clint Miramontes MD Primary Care Provider Encounter Details Date Type Department Care Team (Late st Contact Info) Description 09/08/2022 Orders Only [facility] - [facility] Rheumatology [address] [place], [place] [phone] Lin Grider MD 130 [facility] [address] [place] [address] Social History Tobacco Use Types [...] Contact Info) Description 08/10/2024 16:00 EDT Appointment [facility] MRI [address] [place], [place] [address] 08/16/2024 14:00 EDT EMILIA [facility] OBGYN Ultrasound [address] [place] [address] 08/29/2024 14:00 EDT Office Visit [facility] OBGYN [address] [place] [phone] Ness Vilchis MD [address] [place] [address], [address] [place] [phone] 08/31/2024 16:00 EDT Office Visit [facility] Orthopedics & Sport Medicine [address], [address] [place], [place] [phone] Reema Peoples, PA-C 1311 [facility] [address] [place], [place] [phone] 09/01/2024 9:30 EDT Office Visit [facility] Rheumatology [address] [place] [phone] Lin Grider MD [address] [place] [address] [address] [place] [phone] 11/08/2024 14:00 EST Office Visit [facility] Adult Hematology & Oncology [address] [place] [address], [place] [phone] Luz Maria Peter, GABRIEL [address] [place] [address], [facility] [address] [place] [address] 11/22/2024 10:15 EST Office Visit [facility] Family Medicine - [place] [address] [place] [address] Clint Miramontes MD [address] [place] [phone] documented as of this encounter Visit Diagnoses Not on filedocumented in this encounter Care Teams Senior Java Engineer Relationship Specialty Start Date End Date Clint Miramontes MD [address] [place] [phone] PCP - General 08/23/19 documented as of this encounter
--- OUTSIDE RECORDS SUMMARY | 2024-08-07 13:37 | XMS_ITS | Encounter Summary ---
Author Organization [facility] Address [address] [place] [address] Care Team Providers Care Parenting Skills Instructor Name Role Phone Clint Miramontes MD Primary Care Provider [phone] Reason for Visit * Auth/Cert Specialty Diagnoses / Procedures Referred By Annia gan Referred To Contact Referral ID Status Reason Start Date Expiration Date Visits Re quested Visits Authorized [id number] 1 1 Encounter Details Date Type Department Care Team (Latest Contact Info) Description 09/22/2022 14:09 EST - 09/22/2022 23:59 EST Hospital Encounter [facility] Infusion [address] [place] [address] Age-related osteoporosis without current pathological fracture Discharge [...] Sign Reading Time Taken Comments Blood Pressure 155/64 09/22/2022 1455 EST Pulse - - Temperature 36.4 ??C (97.6 ??F) 09/22/2022 1455 EST Respiratory Rate 16 09/22/2022 1455 EST Oxygen Saturation 96% 09/22/2022 1455 EST Inhaled Oxygen Concentration - - Weight [...] Description 08/10/2024 16:[address] [facility] MRI 130 [facility], [place] [phone] 08/16/2024 14:[address] [facility] OBGYN Ultrasound [address] [place] [address] 08/29/2024 14:[address] [facility] OBGYN [address] [place], [place] [address] Ness Vilchis MD 130 [facility], [address] [place] [address] 08/31/2024 16:[address] [facility] Orthopedics & Sport Medicine [address], [address] [place] [address] Reema Peoples, PA-C 1311 [facility] [address] [place], [place] [phone] 09/01/2024 9:[address] [facility] Rheumatology [address] [place], [place] [phone] Lin Grider MD [address] [place] [address] [address] [place] [address] 11/08/2024 14:[address] [facility] Adult Hematology & Oncology [address] [place] [address], [place] [phone] Luz Maria Peter, GABRIEL 130 [facility], [facility] [address] [place] [address] 11/22/2024 10:[address] [facility] Family Medicine - [employer] [address] [place] [address] Clint Miramontes MD [address] [place] [phone] documented as of this encounter Visit Diagnoses Diagnosis Age-related osteoporosis without current pathological fracture Senile osteoporosis documented in this encounter Historical Medications * This list may reflect changes made after this encounter. Medication Sig Dispensed Refills Start Date End Date aspirin 81 mg EC tablet Take 1 Tablet by mouth daily. multivitamin capsule Take 1 Capsule by mouth daily. 06/02/2023 added in this encounter Care Teams Parenting Skills Instructor Relationship Specialty Start Date End Date Clint Miramontes MD [address] [place] [phone] PCP - General 08/23/19 documented as of this encounter
--- OUTSIDE RECORDS SUMMARY | 2024-08-07 13:38 | XMS_ITS | Encounter Summary ---
Author Organization [facility] Address [address] [place] [address] Care Team Providers Care Identification Printing Machine Setter Name Role Phone Clint Miramontes MD Primary Care Provider [phone] Reason for Visit * Reason Onset Date Comments Referral Request 07/30/2021 AUDITOR SUPERVISOR referral Encounter Details Date Type Department Care Team (Late st Contact Info) Description 07/30/[address] [facility] - [address] [address] Maci Farrar RN Referral Request (AUDITOR SUPERVISOR referral) Social History Tobacco Use Types Packs/Day Years Used Date Smoking Tobacco: Former Cigarettes 1 18.7 1 964 - 07/03/1982 Smokeless Tobacco: Never Comments:1981 quit Alcohol Use Standard Drinks/Week Comments No 0 (1 standard drink = 0.6 oz pur e alcohol) Interpersonal Safety Answer Date Record ed Physically [...] encounter Miscellaneous Notes * Telephone Encounter - Michael Ramos - 08/02/2021 0924 EDT Pt would like to move forward with referral to [facility] at [facility]. Please place. * Telephone Encounter - Clover Lund RN - 08/01/2021 1005 EDT As you mentioned: AUDITOR SUPERVISOR could see her if she is having ongoing discomfort. Sounds like she is no longer having pain. LMTCB. * Telephone Encounter - Clover Lund RN - 08/01/2021 1005 EDT August 01, 2021 Clint Miramontes MD to [facility] Nurse ?? 8:36 Yes, as I mentioned. * Telephone Encounter - Clover Lund RN - 07/31/2021 0948 EDT If no pain, do you still recommend AUDITOR SUPERVISOR? * Telephone Encounter - Clover Lund RN - 07/31/2021 0948 EDT Clint Miramontes MD to [facility] Nurse ?? 07/30/21 10:13 AUDITOR SUPERVISOR referral * Telephone Encounter - Maci Farrar RN - 07/30/2021 1003 EDT Spoke with Mel. No pain involved. States someone mentioned something about her uterus. Please advise on Myomatous uterus. * Telephone Encounter - Maci Farrar RN - 07/30/2021 1003 EDT ----- Message from Clitn Miramontes MD sent at 07/29/2021 15:21 EDT ----- Ovarian cyst, but nothing concerning. AUDITOR SUPERVISOR could see her if she is having ongoing discomfort. documented in this encounter Plan of Treatment Upcoming Encounters Date Type Department Care Team (Late st Contact Info) Description 08/10/2024 16:00 EDT Appointment [facility] MRI [address] [place], [place] [address] 08/16/2024 14:00 EDT EMILIA [facility] OBGYN Ultrasound [address] [place] [address] 08/29/2024 14:00 EDT Office Visit [facility] OBGYN [address] [place], [place] [phone] Ness Vilchis MD [address] [place] [address], [address] [place] [phone] 08/31/2024 16:00 EDT Office Visit [facility] Orthopedics & Sport Medicine [address], [address] [place], [place] [phone] Reema Peoples PA-C 1311 [facility] [address] [place], [place] [address] 09/01/2024 9:30 EDT Office Visit [facility] Rheumatology [address] [place], [place] [phone] Lin Grider MD 130 [facility] [address] [place] [address] 11/08/2024 14:00 EST Office Visit [facility] Adult Hematology & Oncology [facility] [place] [address] Luz Maria Peter, SIGNAL REPAIRER 130 [facility], [facility] [address] [place] [phone] 11/22/2024 10:15 EST Office Visit [facility] Family Medicine - [place] [address] [place] [phone] Clint Miramontes MD [address] [place] [phone] documented as of this encounter Visit Diagnoses Diagnosis 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
--- OUTSIDE RECORDS SUMMARY | 2024-08-07 13:38 | XMS_ITS | Encounter Summary ---
Author Organization [facility] Address [address] [place] [address] Care Team Providers Care Primary Education Professor Name Role Phone Clint Miramontes MD Primary Care Provider [phone] Encounter Details Date Type Department Care Team (Latest Contact Info) Description 11/19/2021 Travel Social History Tobacco Use Types Packs/Day Years [...] 13:07 EDT Sexual Orientation Not on file COVID-19 Exposure Response Date Recorded In the last month, have you been in contact with someone who was confirmed or suspected to have Coronavirus / COVID-19? No / Unsure 11/19/2021 10:29 EST documented as of this encounter Functional Status [...] Info) Description 08/10/2024 16:00 EDT Appointment [facility] MRI [address] [place], [place] [address] 08/16/2024 14:00 EDT EMILIA [facility] OBGYN Ultrasound [address] [place] [address] 08/29/2024 14:00 EDT Office Visit [facility] OBGYN [address] [place] [address] Ness Vilchis MD [address] [place] [address], [address] [place] [address] 08/31/2024 16:00 EDT Office Visit [facility] Orthopedics & Sport Medicine [address], [address] [place], [place] [phone] Reema Peoples, PA-C 1311 [facility] [address] [place], [place] [phone] 09/01/2024 9:30 EDT Office Visit [facility] Rheumatology [address] [place] [phone] Lin Grider MD [address] [place] [address] [address] [place] [address] 11/08/2024 14:00 EST Office Visit [facility] Adult Hematology & Oncology [address] [place] [address] Luz Maria Peter NP [address] [place] [address] [address] [place] [address] 11/22/2024 10:15 EST Office Visit [facility] Family Medicine - [place] [address] [place] [address] Clint Miramontes MD [address] [place] [phone] documented as of this encounter Visit Diagnoses Not on filedocumented in this encounter Care Teams Primary Education Professor Relationship Specialty Start Date End Date Clint Miramontes MD [address] [place] [phone] PCP - General 08/23/19 documented as of this encounter
--- OUTSIDE RECORDS SUMMARY | 2024-08-07 13:38 | XMS_ITS | Encounter Summary ---
Author Organization [facility] Address [address] [place] [address] Care Team Providers Care Food Processing Chemist Name Role Phone Clint Miramontes MD Primary Care Provider [phone] Reason for Visit * Reason Onset Date Comments Prior Auth, Medication 07/29/2021 Encounter Details Date Type Department Care Team (Late st Contact Info) Description 07/29/[address] [facility] Rheumatology [address] [place] [address] Lin Grider MD 130 [facility] [address] [place] [address] Prior Auth, Medication Social History Tobacco Use [...] encounter Miscellaneous Notes * Telephone Encounter - Emily Valencia MA - 07/29/2021 1253 EDT Prior authorization request for Zoledronic inj has been cancelled. [facility] Blue rx informationin regards to cancellation has been scanned into chart. Please refer to scans for more details. documented in this encounter Plan of Treatment Upcoming Encounters Date Type Department Care Team (Late st Contact Info) Description 08/10/2024 16:[address] [facility] MRI [address] [place], [place] [phone] 08/16/2024 14:[address] [facility] OBGYN Ultrasound [address] [place] [phone] 08/29/2024 14:[address] [facility] OBGYN [address] [place] [phone] Ness Vilchis MD [address] [place], [place] [address], [address] [place] [phone] 08/31/2024 16:[address] [facility] Orthopedics & Sport Medicine [address], [address] [place], [place] [phone] Reema Peoples PA-C 1311 [facility] [address] [place], [place] [address] 09/01/2024 9:[address] [facility] Rheumatology [address] [place], [place] [phone] Lin Grider MD [address] [place] [address] [address] [place] [address] 11/08/2024 14:[address] [facility] Adult Hematology & Oncology [address] [place] [address], [place] [address] Luz Maria Peter, GABRIEL 130 [facility] [address] [place] [phone] 11/22/2024 10:[address] [facility] Family Medicine - [place] [address] [place] [address] Clint Miramontes MD [address] [place] [phone] documented as of this encounter Visit Diagnoses Not on filedocumented in this encounter Care Teams Food Processing Chemist Relationship Specialty Start Date End Date Clint Miramontes MD [address] [place] [phone] PCP - General 08/23/19 documented as of this encounter
--- OUTSIDE RECORDS SUMMARY | 2024-08-07 13:38 | XMS_ITS | Encounter Summary ---
Author Organization [facility] Address [address] [place] [address] Care Team Providers Care Convenience Store Manager Name Role Phone Clint Miramontes MD Primary Care Provider Reason for Visit * Reason Onset Date Comments Medications Refill 12/23/2021 Encounter Details Date Type Department Care Team (Late st Contact Info) Description 12/23/2021 Refill [facility] - [address] [address] Luz Maria Hdz RN Medications Refill Social [...] Daily Max: 1 mg 30 Tablet 3 12/24/2021 04/21/2022 documented in this encounter Miscellaneous Notes * Telephone Encounter - Luz Maria Hdz, RN - 12/23/2021 1012 EST rx requested. seven 11/21/21 F/u 05/13/22 vpms Last filled 11/20/21 #30 rx pending for your review documented in this encounter Plan of Treatment Upcoming Encounters Date Type Department Care Team (Late st Contact Info) Description 08/10/2024 16:00 EDT Appointment [facility] MRI [address] [place], [place] [phone] 08/16/2024 14:00 EDT EMILIA [facility] OBGYN Ultrasound [address] [place], [place] [phone] 08/29/2024 14:00 EDT Office Visit [facility] OBGYN [address] [place] [phone] Ness Vilchis MD 130 [facility] [address] [place] [address] 08/31/2024 16:00 EDT Office Visit [facility] Orthopedics & Sport Medicine [address], [address] [place] [address] Reema Peoples PA-C 1311 [facility] [address] [place], [place] [phone] 09/01/2024 9:30 EDT Office Visit [facility] Rheumatology [address] [place], [place] 3249[address] Lin Grider MD 130 [facility] M[facility] [address] [place] [address] 11/08/2024 14:00 EST Office Visit [facility] Adult Hematology & Oncology [facility] [place] [address] Luz Maria Peter NP 130 [facility], [facility] [address] [place] [address] 11/22/2024 10:15 EST Office Visit [facility] Family Medicine - [address] [phone] Clint Miramontes MD [address] [place] [phone] documented as of this encounter Visit Diagnoses Not on filedocumented in this encounter Discontinued Medications Medication Sig Discontinue Reason Start Date End Da te LORazepam (ATIVAN) 1 mg tablet Take 1 Tablet by mouth at bedtime as needed for Anxiety. Daily Max: 1 mg Reorder 11/21/2021 12/23/2021 documented as of this encounter Care Teams Convenience Store Manager Relationship Specialty Start Date End Date Clint Miramontes MD [address] [place] [phone] PCP - General 08/23/19 documented as of this encounter
--- OUTSIDE RECORDS SUMMARY | 2024-08-07 13:38 | XMS_ITS | Encounter Summary ---
Author Organization [facility] Address [address] [place] [address] Care Team Providers Care Network Systems Consultant Name Role Phone Clint Miramontes MD Primary Care Provider [phone] Reason for Referral * Radiology Services (Routine/Next Available) - Authorization Not Required Specialty Diagnoses / Procedures Referred By Contac t Referred To Contact Diagnoses Chronic obstructive pulmonary disease, unspecified COPD type (HCC-CMS) Weight loss Procedures XR CHEST 2 VIEWS Clint Miramontes MD [address] [place] [phone] [facility] Referral ID Status Reason Start Date Expiration Date Visits Requested Visits Authorized [id number] Authorization Not Required 04/21/2022 1 1 Reason for Visit * Radiology Services (Routine/Next Available) - Authorization Not Required Specialty Diagnoses / Procedures Referred By Contac t Referred To Contact Diagnoses Chronic obstructive pulmonary disease, unspecified COPD type (HCC-CMS) Weight loss Procedures XR CHEST 2 VIEWS Clint Miramontes MD [address] [place] [address] [facility] Referral ID Status Reason Start Date Expiration Date Visits Requested Visits Authorized [id number] Authorization Not Required 04/21/2022 1 1 Encounter Details Date Type Department Care Team (Latest Contact Info) Description 04/22/2022 15:46 EDT - 04/22/2022 23:59 EDT Hospital Encounter [facility] Xray [address] [place] [address] Chronic obstructive pulmonary disease, unspecified COPD type ([facility]) (HCC) ([facility]-CMS); Weight loss Discharge Disposition: Home or Self Care Social [...] Contact Info) Description 08/10/2024 16:00 EDT Appointment [facility] MRI [address] [place] [id number] 08/16/2024 14:00 EDT EMILIA [facility] OBGYN Ultrasound [address] [place] [address] 08/29/2024 14:00 EDT Office Visit [facility] OBGYN [address] [place] [phone] Ness Vilchis MD [address] [place] [address]A, [address] [place] [phone] 08/31/2024 16:00 EDT Office Visit [facility] Orthopedics & Sport Medicine [address], [address] [place], [place] [phone] Reema Peoples PAAbigail 1311 [facility] [address] [place], [place] [address] 09/01/2024 9:30 EDT Office Visit [facility] Rheumatology [address] [place] [phone] Lin Grider MD [address] [place] [address] [address] [place] [phone] 11/08/2024 14:00 EST Office Visit [facility] Adult Hematology & Oncology [facility] [place] [address] Luz Maria Peter, GABRIEL 130 [facility], [facility] [address] [place] [phone] 11/22/2024 10:15 EST Office Visit [facility] Family Medicine - [place] [address] [place] [address] Clint Miramontes MD [address] [place] [phone] documented as of this encounter Procedures Procedure Name Priority Date/Time Associated Diagnosis Comments XR CHEST 2 VIEWS Routine 04/22/2022 16:0 4 EDT Chronic obstructive pulmonary disease, unspecified COPD type (HCC-CMS) (HCC) (HCC-CMS) Weight loss documented in this encounter Results * XR CHEST 2 VIEWS (04/22/2022 16:04 EDT) Anatomical Region Laterality Modality Computed Radiogr aphy 04/23/2022 13:0 9 EDT Impressions 04/23/2022 13:09 EDT No acute process. Narrative 04/23/2022 13:09 EDT INDICATION: weight loss. COMPARISON: Chest x-ray 03/18/2016. TECHNIQUE: X-ray chest 2 views. FINDINGS: The cardiomediastinal silhouette and pulmonary vasculature are within normal limits. The lungs are clear. No pleural effusion or pneumothorax is seen. There is mild to moderate scoliosis and degenerative spondylosis of the thoracic and visualized lumbar spine. Procedure Note Bharath Patel MD - 04/23/2022 INDICATION: weight loss. COMPARISON: Chest x-ray 03/18/2016. TECHNIQUE: X-ray chest 2 views. FINDINGS: The cardiomediastinal silhouette and pulmonary vasculature are withinnormal limits. The lungs are clear. No pleural effusion or pneumothorax isseen. There is mild to moderate scoliosis and degenerative spondylosis ofthe thoracic and visualized lumbar spine. IMPRESSION No acute process. Clint Miramontes MD IMG DIAGNOSTIC IMAGI NG ORDERABLES documented in this encounter Visit Diagnoses Diagnosis Chronic obstructive pulmonary disease, unspecified COPD type ([facility]) Weight loss Loss of weight documented in this encounter Care Teams Network Systems Consultant Relationship Specialty Start Date End Date Clint Miramontes MD [address] [place] [phone] PCP - General 08/23/19 documented as of this encounter
--- OUTSIDE RECORDS SUMMARY | 2024-08-07 13:38 | XMS_ITS | Encounter Summary ---
Author Organization [facility] Address [address] [place] [address] Care Team Providers Care Pediatric Dermatologist Name Role Phone Clint Miramontes MD Primary Care Provider [phone] Reason for Visit * Reason Onset Date Comments Follow-up 10/03/2021 Encounter Details Date Type Department Care Team (Late st Contact Info) Description 10/03/2021 Telephone [facility] OBGYN [address] [place] [address] Ness Vilchis MD 130 [facility], [address] [place] [address] Follow-up Social History Tobacco Use Types Packs/Day [...] Telephone Encounter - Imelda Lazo RN - 10/03/2021 1708 EST updated * Telephone Encounter - Ness Vilchis MD - 10/03/[address] patient in tracking for one year f/u of left ovarian cyst. She will need u/s done in ayear and f/u with me after (schedule u/s for end of 07/2022) documented in this encounter Plan of Treatment Upcoming Encounters Date Type Department Care Team (Late st Contact Info) Description 08/10/2024 16:00 EDT Appointment [facility] MRI [address] [place] [address] 08/16/2024 14:00 EDT EMILIA [facility] OBGYN Ultrasound [address] [place], [place] [phone] 08/29/2024 14:00 EDT Office Visit [facility] OBGYN [address] [place], [place] [phone] Ness Vilchis MD 130 [facility], [address] [place] [address] 08/31/2024 16:00 EDT Office Visit [facility] Orthopedics & Sport Medicine [address], [address] [place] [address] Reema Peoples PA-C 13[address] [facility] [address] [place], [place] [phone] 09/01/2024 9:30 EDT Office Visit [facility] Rheumatology 130 [place] [address] Lin Grider MD 130 [facility] [address] [place] [address] 11/08/2024 14:00 EST Office Visit [facility] Adult Hematology & Oncology [address] [place] [address], [place] [address] Luz Maria Peter NP 130 [facility], [facility] [address] [place] [address] 11/22/2024 10:15 EST Office Visit [facility] Family Medicine - [place] [address] [place] [address] Clint Miramontes MD [address] [place] [phone] documented as of this encounter Visit Diagnoses Not on filedocumented in this encounter Care Teams Pediatric Dermatologist Relationship Specialty Start Date End Date Clint Miramontes MD [address] [place] [phone] PCP - General 08/23/19 documented as of this encounter
--- OUTSIDE RECORDS SUMMARY | 2024-08-07 13:38 | XMS_ITS | Encounter Summary ---
Author Organization [facility] Address [address] [place] [address] Care Team Providers Care Bobtail Driver Name Role Phone Clint Miramontes MD Primary Care Provider [phone] Encounter Details Date Type Department Care Team (Latest Contact Info) Description 04/24/2022 Transcribe Orders [facility] Family Medicine - [place] [address] [place] [address] Clint Miramontes MD [address] [place] [phone] Health examination in population survey (Primary Dx) Social History Tobacco Use Types [...] Contact Info) Description 08/10/2024 16:00 EDT Appointment [facility] MRI [address] [place], [place] [address] 08/16/2024 14:00 EDT EMILIA [facility] OBGYN Ultrasound [address] [place] [address] 08/29/2024 14:00 EDT Office Visit [facility] OBGYN [address] [place], [place] [phone] Ness Vilchis MD [address] [place] [address], [address] [place] [address] 08/31/2024 16:00 EDT Office Visit [facility] Orthopedics & Sport Medicine [address], [address] [place], [place] [phone] Reema Peoples PA-C 1311 [facility] [address] [place], [place] [address] 09/01/2024 9:30 EDT Office Visit [facility] Rheumatology [address] [place] [address] [phone] Lin Grider MD [address] [place], [place] [address] [address] [place] [address] 11/08/2024 14:00 EST Office Visit [facility] Adult Hematology & Oncology [address] [place] [phone] Luz Maria Peter, GABRIEL [address] [place] [address], [facility] [address] [place] [address] 11/22/2024 10:15 EST Office Visit [facility] Family Medicine - [place] [address] [place], [place] [phone] Clint Miramontes MD [address] [place] [phone] documented as of this encounter Visit Diagnoses Diagnosis Health examination in population survey- Primary documented in this encounter Care Teams Bobtail Driver Relationship Specialty Start Date End Date Clint Miramontes MD [address] [place] [phone] PCP - General 08/23/19 documented as of this encounter
--- OUTSIDE RECORDS SUMMARY | 2024-08-07 13:38 | XMS_ITS | Encounter Summary ---
Author Organization [facility] Address [address] [place] [address] Care Team Providers Care Instrumentation Controls Engineer Name Role Phone Clint Miramontes MD Primary Care Provider [phone] Reason for Visit * Reason Onset Date Comments Medications Refill 08/28/2021 Medications Refill 09/03/2021 Encounter Details Date Type Department Care Team (Late st Contact Info) Description 08/28/2021 Refill [facility] - [place] [address] [place], [place] [phone] Clover Lund, RN [address] [place], [place] [phone] Medications Refill; Medications Refill Social History Tobacco Use Types [...] Daily Max: 1 mg 30 Tablet 3 08/29/2021 11/21/2021 documented in this encounter Miscellaneous Notes * Telephone Encounter - Michael Ramos - 09/03/2021 1507 EDT Pt is scheduled for f/u Anxiety with MD LEVI on 11/21/21. * Telephone Encounter - Clover Lund RN - 08/29/2021 1556 EDT LMTCB to schedule. Rx loaded for your review. * Telephone Encounter - Villa Talbot - 08/29/2021 0906 EDT Pt called about refill, LORAZEPAM 1 MG tablet. Relayed info from previous message, told her she would get a callback today. * Telephone Encounter - Clover Lund RN - 08/28/2021 1829 EDT Last appt was 06/13/21. Due back 4-6 months from them for an anxiety follow up. Will call tomorrow. Per [facility], last filled 07/25/21 for #30. No refills remain. documented in this encounter Plan of Treatment Upcoming Encounters Date Type Department Care Team (Late st Contact Info) Description 08/10/2024 16:00 EDT Appointment [facility] MRI [address] [place] [address] 08/16/2024 14:00 EDT EMILIA [facility] OBGYN Ultrasound [address] [place] [address] 08/29/2024 14:00 EDT Office Visit [facility] OBGYN [address] [place] [address] Ness Vilchis MD [address] [place], [place] [address]A, [address] [place] [phone] 08/31/2024 16:00 EDT Office Visit [facility] Orthopedics & Sport Medicine [address], [address] [place] [address] Reema Peoples, PA-C [address] [facility] [address] [place], [place] [phone] 09/01/2024 9:30 EDT Office Visit [facility] Rheumatology [address] [place] [phone] Lin Grider MD [address] [place] [address] [address] [place] [address] 11/08/2024 14:00 EST Office Visit [facility] Adult Hematology & Oncology [address] [place] [address] Luz Maria Peter, GABRIEL [address] [place] [address] [address] [place] [address] 11/22/2024 10:15 EST Office Visit [facility] Family Medicine - [place] [address] [place] [address] Clint Miramontes MD [address] [place] [phone] documented as of this encounter Visit Diagnoses Not on filedocumented in this encounter Discontinued Medications Medication Sig Discontinue Reason Start Date End Da te LORazepam (ATIVAN) 1 mg tablet TAKE ONE TABLET BY MOUTH AT BEDTIME NEEDED FOR ANXIETY Reorder 04/29/2021 08/28/2021 documented as of this encounter Care Teams Instrumentation Controls Engineer Relationship Specialty Start Date End Date Clint Miramontes MD [address] [place] [phone] PCP - General 08/23/19 documented as of this encounter
--- OUTSIDE RECORDS SUMMARY | 2024-08-07 13:38 | XMS_ITS | Encounter Summary ---
Author Organization [facility] Address [address] [place] [address] Care Team Providers Care Burlap Roll Coverer Name Role Phone Clint Miramontes MD Primary Care Provider [phone] Reason for Visit * Reason Comments Follow-up Encounter Details Date Type Department Care Team (Late st Contact Info) Description 11/19/2021 10:30 EST Office Visit [facility] Adult Hematology & Oncology [address] [place] [address] [place] [address] [facility] [address] [place] [address] (Fax) Lymphoma of lymph nodes of head [...] 10:29 EST documented as of this encounter Last Filed Vital Signs Vital Sign Reading Time Taken Comments Blood Pressure 100/56 11/19/2021 1027 EST Pulse 110 11/19/2021 1027 EST Temperature - - Respiratory Rate - - Oxygen Saturation 95% 11/19/2021 1027 EST Inhaled Oxygen Concentration - - Weight 46.7 kg (103 lb) 11/19/2021 1027 EST Height - - Body Mass Index 22.22 10/03/2021 1016 EST documented in this encounter Functional Status [...] Progress Notes * Sheyla Atwood MD - 11/19/2021 1030 EST Patient Active Problem List Diagnosis ??? 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 Clinical stage IIIa disease with numerous small lymph nodes above and below the diaphragm. No treatment at this time. Subjective Interim History: Patient returns for follow-up. Says that she doesn't feel 100% well. Maybe a little more depressed. Had upper abdominal discomfort which has currently resolved. She had CT abdomen for evaluation and that did not show any acute pathology. Denies any fevers, night sweats or unintentional weight loss. She was started on Reclast by . Received first infusion in 2020. Denies any recent hospitalizations. She retired last year. Review of Systems: Review of Systems Constitutional: [...] date: 1964 Quit date: 07/03/1982 Years since quittin.4 ??? Smokeless tobacco: Never Used ??? Tobacco [...] 90 mcg/actuation aero powdr breath act w/sensor 2 puff(s) inhaled every 4 hours as needed Taking ??? aspirin 325 mg tablet Take 1 Tab by mouth daily. Taking ??? cholecalciferol, Vitamin D3, (VITAMIN D) 1,000 unit tablet Take 4,000 Units by mouth daily. Taking ??? fluticasone propionate (FLOVENT HFA) 110 mcg/actuation inhaler Inhale 2 Puffs as directed every12 hours. 3 Inhaler 3 Taking ??? inhalational spacing device (E-Z SPACER) Inhale 1 Device as directed 2 times daily. For use with Flovent inhaler. Dx: J44.9. 1 Device 0 Taking ??? LORazepam (ATIVAN) 1 mg tablet Take 1 Tablet by mouth at bedtime as needed for Anxiety. Daily Max: 1 mg 30 Tablet 3 Taking ??? lovastatin (MEVACOR) 40 mg tablet Take 2 Tablets by mouth daily. 180 Tablet 3 Taking No current facility-administered medications for this visit. Vitals: 11/19/21 1027 BP: 100/56 Pulse: (!) 110 SpO2: 95% Weight: 46.7 kg (103 lb) Wt Readings from Last 3 Encounters: 11/19/21 46.7 kg (103 lb) 10/03/21 47.4 kg (104 lb 8 oz) 07/29/21 46.4 kg (102 lb 4.8 oz) Physical Exam: Physical Exam Constitutional: She [...] affect. Assessment & Plan Marginal zone lymphoma. Clinically she is doing well with no evidence of B symptoms or palpable bulky lymphadenopathy. CT abdomen/pelvis from July 2021 showed no evidence of any lymphadenopathy.Blood counts reviewed and wnl. Will continue to follow her on observation. Plan: 1. Return for follow-up in 6 months. Sheyla Atwood MD Hematology/Oncology [facility] documented in this encounter Plan of Treatment Upcoming Encounters Date Type Department Care Team (Late st Contact Info) Description 08/10/2024 16:00 EDT Appointment [facility] MRI [address] [place] [address] 08/16/2024 14:00 EDT EMILIA [facility] OBGYN Ultrasound [address] [place] [address] 08/29/2024 14:00 EDT Office Visit [facility] OBGYN [address] [place] [address] Ness Vilchis MD [address] [facility], [address] [place] [address] 08/31/2024 16:00 EDT Office Visit [facility] Orthopedics & Sport Medicine [address], [address] [place] [address] Reema Peoples PA-C [address] [facility] [address] [place] [address] 09/01/2024 9:30 EDT Office Visit [facility] Rheumatology [address] [facility], [place] [phone] Lin Grider MD 130 [facility] [address] [place] [address] 11/08/2024 14:00 EST Office Visit [facility] Adult Hematology & Oncology [address] [place] [address], [place] [address] Luz Maria Peter NP [address] [facility], [facility] [address] [place] [address] 11/22/2024 10:15 EST Office Visit [facility] Family Medicine - [place] [address] [place] [address] Clint Miramontes MD [address] [place] [phone] documented as of this encounter Procedures Procedure Name Priority Date/Time Associated Diagnosis Comments COMPLETE BLOOD COUNT AND DIFFERENTIAL Routine 11/19/2021 10:32 EST 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 Correct reference range for LDH is 313-618U/L. ??If any additional questions call the [facility] main laboratory. Sheyla Atwood MD CHEMISTRY & BLOOD GA S ORDERABLES [facility] [address] [place] [address] * (ABNORMAL) COMPLETE BLOOD COUNT AND DIFFERENTIAL (11/19/2021 10:32 EST) WBC 5.70 4.00 - 12.40 K/cmm 11/20/2021 8:45 [facility] [place] RBC 4.37 3.86 - 5.04 M/cmm 11/20/2021 8:45 [facility] [place] Hemoglobin 12.8 11.6 - 15.2 gm/dL 11/20/2021 8:45 [facility] [place] HCT 39.6 34.9 - 44.4 % 11/20/2021 8:45 [facility] [place] MCV 91 81 - 98 fl 11/20/2021 8:45 [facility] [place] MCH 29.3 26.7 - 33.3 pg 11/20/2021 8:45 [facility] [place] MCHC 32.3 32.1 - 35.9 gm/dL 11/20/2021 8:45 [facility] [place] RDW-CV 12.6 <14.7 % 11/20/2021 8:45 [facility] RDW-SD 40.9 <50.4 fl 11/20/2021 8:45 [facility] [place] PLT 241 141 - 377 K/cmm 11/20/2021 8:45 [facility] [place] MPV 9.2(L) 9.5 - 12.7 fl 11/20/2021 8:45 [facility] [place] % Neutrophils 64.6 % 11/20/2021 8:45 EST [facility] HEMATOLOGY & [facility] [place] % Lymphocytes 26.1 % 11/20/2021 8:45 EST [facility] HEMATOLOGY & [facility] [place] % Monocytes 6.3 % 11/20/2021 8:45 EST [facility] HEMATOLOGY & [facility] [place] % Eosinophils 2.6 % 11/20/2021 8:45 EST [facility] HEMATOLOGY & [facility] [place] % Basophils 0.4 % 11/20/2021 8:45 EST [facility] HEMATOLOGY & [facility] [place] % Immature Grans 11/20/19 8:45 EST [facility]OLOGY [facility] [place] Absolute Neutrophils 3.68 2.20 - 8.85 K/cmm 11/20/2021 8:45 EST [facility] HEMATOLOGY & [facility] [place] Absolute Lymphocytes 1.49 1.09 - 3.30 K/cmm 11/20/2021 8:45 EST [facility] HEMATOLOGY & ONCOLOGY [facility] Absolute Monocytes 0.36 0.10 - 0.80 K/cmm 11/20/2021 8:45 EST [facility] HEMATOLOGY & ONCOLOGY [facility] Absolute Eosinophils 0.15 0.03 - 0.61 K/cmm 11/20/2021 8:45 EST [facility] HEMATOLOGY & [facility]Y [place] ABS Basophils 0.02 0.01 - 0.11 K/cmm 11/20/2021 8:45 EST [facility] HEMATOLOGY & ONCOLOGY [facility] Absolute Immature Grans 11/20/2021 8:45 EST [facility] HEMATOLOGY & ONCOLOGY [facility] Type of Differential: Auto 11/20/2021 8:45 EST [facility] HEMATOLOGY & ONCOLOGY [facility] Blood VENOUS BLOOD / Unknown Venipuncture / Unknown 11/19/2021 10:32 EST 11/19/2021 10:32 EST Sheyla Atwood MD PACKAGES & DNA PROBE ORDERABLES [facility] HEMATOLOGY & ONCOLOGY [facility] Medical Office Building [address], [address] [place] [address] documented in this encounter Visit Diagnoses Diagnosis 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
--- OUTSIDE RECORDS SUMMARY | 2024-08-07 13:38 | XMS_ITS | Encounter Summary ---
Author Organization [facility] Address [address] [place] [address] Care Team Providers Care Scientist/Engineer Name Role Phone Clint Miramontes MD Primary Care Provider [phone] Reason for Visit * Reason Comments Other Encounter Details Date Type Department Care Team (Late st Contact Info) Description [facility]/08[facility] [address] [place], [place] [address] Lin Grider MD 130 [facility] [address] [place] [address] Other Social History Tobacco Use Types Packs/Day Years Used Date Smoking Tobacco: Former Cigarettes 1 15 0 07/03/1967 - 07/03/1982 Smokeless Tobacco: Never Comments:1981 quit [...] Dispensed Refills Start Date End Da te ibandronate (BONIVA) 150 mg tabletIndications:Age-rel ated osteoporosis without current pathological fracture TAKE ONE TABLET BY MOUTH ONCE A MONTH 3 Tablet 07/09/2021 07/29/2021 documented in this encounter Miscellaneous Notes * Telephone Encounter - Lin Grider MD - 07/09/2021 1545 EDT Her DXA results are a little funky. I'm planning to discuss with her at her upcoming appointment. Let's refill for 90 days, no refills for right now. Thanks. * Telephone Encounter - Blanche Madrid RN - 07/09/2021 1017 EDT Last visit note reviewed and follow up scheduled for 07/29/21. Last notes on 07/23/20 states continue ibandronate monthly for another year. Please advise if you would like this refilled. documented in this encounter Plan of Treatment Upcoming Encounters Date Type Department Care Team (Late st Contact Info) Description 08/10/2024 16:00 EDT Appointment [facility] MRI [address] [place] [address] 08/16/2024 14:00 EDT EMILIA [facility] OBGYN Ultrasound [address] [place] [address] 08/29/2024 14:00 EDT Office Visit [facility] OBGYN [address] [place] [address] Ness Vilchis MD [address] [place] [address]A, [address] [place] [address] 08/31/2024 16:00 EDT Office Visit [facility] Orthopedics & Sport Medicine [address], [address] [place] [address] Reema Peoples PA-C [address] [facility] [address] [place] [address] 09/01/2024 9:30 EDT Office Visit [facility] Rheumatology [address] [place], [place] [phone] Lin Grider MD [address] [facility] [address] [place] [address] 11/08/2024 14:00 EST Office Visit [facility] Adult Hematology & Oncology [address] [place] [address] Luz Maria Peter NP 130 [facility] [address] [place] [address] 11/22/2024 10:15 EST Office Visit [facility] Family Medicine - [place] [address] [place] [phone] Clint Miramontes MD [address] [place] [phone] documented as of this encounter Visit Diagnoses Diagnosis Age-related osteoporosis without current pathological fracture- Primary Senile osteoporosis documented in this encounter Discontinued Medications Medication Sig Discontinue Reason Start Date End Da te ibandronate (BONIVA) 150 mg tabletIndications:Age-rel ated osteoporosis without current pathological fracture 1 tab(s) orally once a month 07/23/2020 07/09/2021 documented as of this encounter Care Teams Scientist/Engineer Relationship Specialty Start Date End Date Clint Miramontes MD [address] [place] [phone] PCP - General 10/22/19 documented as of this encounter
--- OUTSIDE RECORDS SUMMARY | 2024-08-07 13:38 | XMS_ITS | Encounter Summary ---
Author Organization [facility] Address [address] [place] [address] Care Team Providers Care Rn Telemetry Name Role Phone Clint Miramontes MD Primary Care Provider [phone] Encounter Details Date Type Department Care Team (Late st Contact Info) Description 04/30/2022 Orders Only [facility] - [facility] CT Scan [address] [place] [address] Jimmy Machuca Social History Tobacco Use Types Packs/Day Years [...] Appointment [facility] MRI [address] [place], [place] [address] 08/16/2024 14:00 EDT EMILIA [facility] OBGYN Ultrasound [address] [place] [address] 08/29/2024 14:00 EDT Office Visit [facility] OBGYN [address] [place] [address] Ness Vilchis MD [address] [place] [address], [address] [place] [address] 08/31/2024 16:00 EDT Office Visit [facility] Orthopedics & Sport Medicine [address], [address] [place], [place] [phone] Reema Peoples, PA-C [address] [facility] [address] [place], [place] [phone] 09/01/2024 9:30 EDT Office Visit [facility] Rheumatology [address] [place] [phone] Lin Grider MD [address] [place] [address] [address] [place] [address] 11/08/2024 14:00 EST Office Visit [facility] Adult Hematology & Oncology [address] [place] [phone] Luz Maria Peter NP [address] [place] [address] [address] [place] [address] 11/22/2024 10:15 EST Office Visit [facility] Family Medicine - [place] [address] [place] [address] Clint Miramontes MD [address] [place] [phone] documented as of this encounter Visit Diagnoses Not on filedocumented in this encounter Care Teams Rn Telemetry Relationship Specialty Start Date End Date Clint Miramontes MD [address] [place] [phone] PCP - General 08/23/19 documented as of this encounter
--- OUTSIDE RECORDS SUMMARY | 2024-08-07 13:38 | XMS_ITS | Encounter Summary ---
Author Organization [facility] Address [address] [place] [address] Care Team Providers Care Video Specialist Name Role Phone Clint Miramontes MD Primary Care Provider [phone] Reason for Visit * Auth/Cert Specialty Diagnoses / Procedures Referred By Annia gan Referred To Contact Referral ID Status Reason Start Date Expiration Date Visits Re quested Visits Authorized [id number] 1 Encounter Details Date Type Department Care Team (Latest Contact Info) Description 09/30/2021 14:56 EST - 09/30/2021 23:59 EST Hospital Encounter [facility] Infusion [address] [place] [address] Age-related osteoporosis without current pathological fracture (Primary [...] Sign Reading Time Taken Comments Blood Pressure 115/60 09/30/2021 1557 EST Pulse - - Temperature 36.8 ??C (98.2 ??F) 09/30/2021 1520 EST Respiratory Rate - - Oxygen Saturation 96% 09/30/2021 1520 EST Inhaled Oxygen Concentration - - Weight [...] sent through Care Everywhere. * zoledronic acid ([place]) documented in this encounter Medications at Time [...] puff(s) inhaled every 4 hours as needed 04/21/2022 aspirin 325 mg tablet Take 1 Tab by mouth daily. 06/04/2010 06/05/2022 fluticasone propionate (FLOVENT HFA) 110 mcg/actuation inhaler Inhale 2 Puffs as directed every 12 hours. 3 Inhaler 3 01/20/2020 04/21/2022 LORazepam (ATIVAN) 1 mg tablet Take 1 Tablet by mouth at bedtime as needed for Anxiety. Daily Max: 1 mg 30 Tablet 3 08/29/2021 11/21/2021 lovastatin (MEVACOR) 40 mg tablet Take 2 Tablets by mouth daily. 180 Tablet 3 06/13/2021 07/17/2022 documented as of this encounter Discharge Disposition Disposition Code Departure Means Destination Home or Self Care documented in this encounter Miscellaneous Notes * Addendum Note - Bharti Wilson RN - 09/30/2021 1500 ESTEjudyounter addended by: Bharti Wilson RN on: 10/09/2021 14:25 Actions taken: Charge Capture section accepted documented in this encounter Plan of Treatment Upcoming Encounters Date Type Department Care Team (Late st Contact Info) Description 08/10/2024 16:[address] [facility] MRI [address] [place], [place] [phone] 08/16/2024 14:[address] [facility] OBGYN Ultrasound [address] [place] [address] 08/29/2024 14:[address] [facility] OBGYN [address] [place] [address] Ness Vilchis MD [address] [place] [address], [address] [place] [phone] 08/31/2024 16:[address] [facility] Orthopedics & Sport Medicine [address], [address] [place], [place] [phone] Reema Peoples, PA-C [address] [facility] [address] [place], [place] [address] 09/01/2024 9:[address] [facility] Rheumatology [address] [place] [phone] Lin Grider MD [address] [place] [address] [address] [place] [address] 11/08/2024 14:[address] [facility] Adult Hematology & Oncology [address] [place] [address], [place] [address] Luz Maria Peter, GABRIEL [address] [place] [address], [facility] [address] [place] [phone] 11/22/2024 10:[address] [facility] Family Medicine - [place] [address] [place] [address] Clint Miramontes MD [address] [place] [phone] documented as of this encounter Visit Diagnoses Diagnosis Age-related osteoporosis without current pathological fracture- Primary Senile osteoporosis documented in this encounter Administered Medications Inactive Administered Medications - up to 3 most recent administrations Medication Order MAR Action Action Date Dose Rate Site acetaminophen (TYLENOL) tablet 650 mg 650 mg, oral, NOW X1, 1 dose, On Thu09/30/21 at 1545, Routine Given 09/30/2021 15:24 EST 650 mg zoledronic acid (RECLAST) 5 mg/100 mL IVPB 5 mg 5 mg, intravenous, Administer over 20 Minutes, NOW X1, 1 dose, On Thu09/30/21 at 1615, Routine New Bag 09/30/2021 15:38 EST 5 mg documented in this encounter Orders Medications Ordered That Allan ht Not Have Been Administered Count Last Ordered Date First Ordered Date sodium chloride 0.9 % (flush) flush 10 mL 1 09/30/2021 sodium chloride 0.9 % (flush) flush 20 mL 1 09/30/2021 documented in this encounter Care Teams Video Specialist Relationship Specialty Start Date End Date Clint Miramontes MD [address] [place] [phone] PCP - General 08/23/19 documented as of this encounter
--- OUTSIDE RECORDS SUMMARY | 2024-08-07 13:38 | XMS_ITS | Encounter Summary ---
Author Organization [facility] Address [address] [place] [address] Care Team Providers Care Sous Chef Name Role Phone Clint Miramontes MD Primary Care Provider [phone] Reason for Referral * Laboratory Services (Routine/Next Available) - New Request Specialty Diagnoses / Procedures 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) Procedures TSH Clint Miramontes MD [address] [place] [phone] Referral ID Status Reason Start Date Expiration Date V isits Requested Visits Authorized [id number] New Request 04/11/2022 1 1 * Laboratory Services (Routine/Next Available) - New Request Specialty Diagnoses / Procedures Referred By [facility] Referred To Contact Diagnoses 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) Procedures COMPREHENSIVE METABOLIC PANEL (CMP) Clint Miramontes MD [address] [place] [phone] Referral ID Status Reason Start Date Expiration Date V isits Requested Visits Authorized [id number] New Request 04/11/2022 1 1 * Laboratory Services (Routine/Next Available) - New Request Specialty Diagnoses / Procedures Referred By [facility] t Referred To Contact Diagnoses 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) Procedures COMPLETE BLOOD COUNT Clint Miramontes MD [address] [place] [phone] Referral ID Status Reason Start Date Expiration Date V isits Requested Visits Authorized [id number] New Request 04/11/2022 1 1 Reason for Visit * Reason Onset Date Comments Labs Only 04/10/2022 Encounter Details Date Type Department Care Team (Late st Contact Info) Description 04/10/2022 Telephone [facility] [place] Family Medicine - [address] [address] Clint Miramontes MD [address] [place] [phone] Labs Only Social History Tobacco Use Types [...] Encounter - Luz Maria Hdz RN - 04/11/2022 1010 EDT Mel is aware and will go to [facility] [place] outpatient lab for draw. * Telephone Encounter - Luz Maria Hdz RN - 04/11/2022 1010 EDT Clint Miramontes MD [facility] Nurse 1 hour ago (8:57) Ordered non fasting labs. * Telephone Encounter - Deandra Tatum MA - 04/10/2022 1003 EDT Patient called and states that she has an appointment in a week and with the symptoms that she has she is wandering if she should have blood work done ahead. Losing weight, weak, loss of appetite andpale gums. She can be reached at [phone] documented in this encounter Plan of Treatment Upcoming Encounters Date Type Department Care Team (Late st Contact Info) Description 08/10/2024 16:00 EDT Appointment [facility] MRI [address] [place], [place] [id number] 08/16/2024 14:00 EDT EMILIA [facility] OBGYN Ultrasound [address] [place] [address] 08/29/2024 14:00 EDT Office Visit [facility] OBGYN [address] [place] [address] Ness Vilchis MD [address] [place] [address], [address] [place] [phone] 08/31/2024 16:00 EDT Office Visit [facility] Orthopedics & Sport Medicine [address], [address] [place], [place] [phone] Reema Peoples, PA-C [address] [facility] [address] [place], [place] [address] 09/01/2024 9:30 EDT Office Visit [facility] Rheumatology [address] [place] [phone] Lin Grider MD [address] [place] [address] [address] [place] [address] 11/08/2024 14:00 EST Office Visit [facility] Adult Hematology & Oncology [address] [place] [address], [place] [phone] Luz Maria Peter, GABRIEL [address] [place] [address], [facility] [address] [place] [phone] 11/22/2024 10:15 EST Office Visit [facility] Family Medicine - [place] [address] [place] [address] Clint Miramontes MD [address] [place] [phone] documented as of this encounter Results * AMYLASE (04/16/2022 13:54 EDT) Amylase 66 30 - 110 U/L 04/16/2022 15:[address] [facility] Blood VENOUS BLOOD / Unknown Venipuncture / Unknown 04/16/2022 13:54 EDT 04/16/2022 14:42 EDT Clint Miramontes MD CHEMISTRY & BLOOD GA S ORDERABLES Performing Organization Address City/[facility] Co de Phone Number [facility] [address] [place] [address] * LIPASE (04/16/2022 13:54 EDT) Lipase 90 <251 U/L 04/16/2022 15:[address] [facility] Blood VENOUS BLOOD / Unknown Venipuncture / Unknown 04/16/2022 13:54 EDT 04/16/2022 14:42 EDT Clint Miramontes MD CHEMISTRY & BLOOD GA S ORDERABLES Performing Organization Address City/[facility]/ZIP Co de Phone Number [facility] [address] [place] [address] * TSH (04/16/2022 13:54 EDT) TSH 0.54 0.47 - 4.68 mIU/L 04/16/2022 15:[address] [facility] Blood VENOUS BLOOD / Unknown Venipuncture / Unknown 04/16/2022 13:54 EDT 04/16/2022 14:[address] [facility] - 04/16/2022 15:59 EDT The results of this assay can be falsely lowered due to the consumption of Biotin. Clint Miramontes MD CHEMISTRY & BLOOD GA S ORDERABLES [facility] [address] [place] [address] * COMPREHENSIVE METABOLIC PANEL (CMP) (04/16/2022 13:54 EDT) Sodium 138 136 - 145 mmol/L 04/16/2022 15:[address] [facility] Potassium 4.3 3.5 - 5.0 mmol/L 04/16/2022 15:24 [facility] Chloride 99 96 - 110 mmol/L 04/16/2022 15:24 [facility] CO2 Total 32 22 - 32 mmol/L 04/16/2022 15:24 [facility] Glucose 73 70 - 100 mg/dL 04/16/2022 15:24 [facility] BUN 16 10 - 26 mg/dL 04/16/2022 15:24 [facility] Creatinine 0.65 0.52 - 1.04 mg/dL 04/16/2022 15:24 [facility] eGFR 93 >60 mL/min/1.7 3m2 04/16/2022 15:24 [facility] Total Protein 6.8 6.3 - 8.2 g/dL 04/16/2022 15:24 [facility] Albumin 4.1 3.4 - 4.9 g/dL 04/16/2022 15:24 [facility] Alkaline Phosphatase 61 38 - 126 U/L 04/16/2022 15:24 [facility] AST 23 15 - 46 U/L 04/16/2022 15:24 [facility] ALT 18 <35 U/L 04/16/2022 15:24 [facility] Bilirubin, Total 0.3 <1.4 mg/dL 04/16/20 15:24 [facility] Calcium 9.1 8.5 - 10.5 mg/dL 04/16/2022 15:24 [facility] Albumin/Globulin Ratio 1.5 1.0 - 2.5 04/16/2022 15:[address] [facility] Anion Gap 7 5 - 14 04/16/2022 15:24 [facility] Blood VENOUS BLOOD / Unknown Venipuncture / Unknown 04/16/2022 13:54 EDT 04/16/2022 14:42 EDT Clint Miramontes MD CHEMISTRY & BLOOD GA S ORDERABLES [facility] [address] [place] [address] * COMPLETE BLOOD COUNT (04/16/2022 13:54 EDT) WBC 6.36 4.00 - 12.40 K/cmm 04/16/2022 14:54 [facility] RBC 4.15 3.86 - 5.04 M/cmm 04/16/2022 14:54 [facility] Hemoglobin 11.9 11.6 - 15.2 gm/dL 04/16/2022 14:54 [facility] HCT 35.9 34.9 - 44.4 % 04/16/2022 14:54 [facility] MCV 87 81 - 98 fl 04/16/2022 14:54 [facility] MCH 28.7 26.7 - 33.3 pg 04/16/2022 14:54 [facility] MCHC 33.1 32.1 - 35.9 gm/dL 04/16/2022 14:54 [facility] RDW-CV 14.4 <14.7 % 04/16/2022 14:54 [facility] RDW-SD 45.7 <50.4 fl 04/16/2022 14:54 [facility] PLT 238 141 - 377 K/cmm 04/16/2022 14:54 [facility] MPV 9.6 9.5 - 12.7 fl 04/16/2022 14:54 EDT [facility] Blood VENOUS BLOOD / Unknown Venipuncture / Unknown 04/16/2022 13:54 EDT 04/16/2022 14:42 EDT Clint Miramontes MD HEMATOLOGY & PF4 ORD ERABLES [facility] [address] [place] [address] documented in this encounter Visit Diagnoses Diagnosis Weight loss- Primary Loss of weight 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
--- OUTSIDE RECORDS SUMMARY | 2024-08-07 13:38 | XMS_ITS | Encounter Summary ---
Author Organization [facility] Address [address] [place] [address] Care Team Providers Care Dry Cell Assembly Supervisor Name Role Phone Clint Miramontes MD Primary Care Provider [phone] Reason for Visit * Reason Comments Follow-up osteoporosis- concer avtar for height loss Encounter Details Date Type Department Care Team (Late st Contact Info) Description 07/29/2021 8:30 EDT Office Visit [facility] Rhe[facility]ology [address] [place] [address] Lin Grider MD [address] [facility] [address] [place] [address] Age-related osteoporosis without current pathological [...] Sign Reading Time Taken Comments Blood Pressure 136/60 07/29/2021 0827 EDT Pulse 66 07/29/2021 0827 EDT Temperature 35.9 ??C (96.7 ??F) 07/29/2021826 EDT Respiratory Rate 18 07/29/2021826 EDT Oxygen Saturation 98% 07/29/2021826 EDT Inhaled Oxygen Concentration - - Weight 46.4 kg (102 lb 4.8 oz) 07/29/2021826 E DT Height 145 cm (4' 9.09) 07/29/2021826 EDT Body Mass Index 22.07 07/29/2021826 EDT documented in this encounter Functional Status [...] * Patient Instructions* Lin Grider MD - 07/29/2021 8:30 EDT Stop ibandronate. Will plan for a dose of Reclast in Sep. Drink water. May take two tabs of Tylenol. Check labs prior to visit next year. documented in this encounter Progress Notes * Lin Grider MD - 07/29/2021 0830 EDT [facility] Rheumatology Chief Complaint Patient presents with ??? Follow-up osteoporosis- concerned for height loss HPI: Osteoporosis. DXA 2016: Left hip femoral neck T-score -3.1, with BMD loss of 5% in the total hip compared with prior DXA in 2010. No apparent risk factors. Started ibandronate 08/2016. Tolerating well. Has lost about 1/4 inch height. Repeat DXA, 06/13/21, [facility]: T-score spine -2.0, T-scrore femoral neck -2.7, T- score total hip -1.7. BMD with decrease at the spine (3.2%); BMD unchanged at the total hip. ? INTERVAL HISTORY: Mel returns for follow-up for osteoporosis. Continues on ibandronate. Denies any falls or fractures. Says she is taking vit D as directed. Mel had a repeat DXA, 06/13/21, [facility], which I personally reviewed: T-score spine -2.0, T-scrore femoral neck -2.7, T-score total hip -1.7. BMD with decrease at the spine (3.2%); BMD unchanged at the total hip. Mel was upset, thinking she lost about 4 inches of height. We reviewed this again, and height isfairly stable; maybe loss of 1/2 inch at most. Current Outpatient Medications Medication ??? albuterol sulfate 90 mcg/actuation aero powdr breath act w/sensor ??? aspirin 325 mg tablet ??? cholecalciferol, Vitamin D3, (VITAMIN D) 1,000 unit tablet ??? fluticasone propionate (FLOVENT HFA) 110 mcg/actuation inhaler ??? ibandronate (BONIVA) 150 mg tablet ??? inhalational spacing device (E-Z SPACER) ??? LORazepam (ATIVAN) 1 mg tablet ??? lovastatin (MEVACOR) 40 mg tablet No current facility-administered medications for this visit. Allergies include: Crestor [rosuvastatin], No known drug allergies, Other - see comments, and Pravastatin Patient Active Problem List Diagnosis ??? Cerebral aneurysm, nonruptured ??? Mixed hyperlipidemia ??? Anxiety ??? 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 Aneurysm (HCC-CMS) ??? Chronic obstructive pulmonary disease (HCC-CMS) ??? Female bladder prolapse ??? Impaired glucose tolerance ??? LBBB (left bundle branch block) ??? Osteoporosis ??? Sleep disturbance ??? Vitamin D deficiency Family History Problem Relation Age of Onset ??? Lung Cancer Mother Social History: Retired, and is enjoying this. Review of Systems: Review of Systems Constitutional: Negative for weight loss. Gastrointestinal: Negative for heartburn. Musculoskeletal: Negative for myalgias. Skin: Negative for rash. Follows with Dr Atwood for h/o lymphoma. Physical Examination: BP 136/60 (BP Cuff Location: Right arm, BP Patient Position: Sitting, BP Cuff Sizes: Adult, regular) Pulse 66 Temp 35.9 ??C (96.7 ??F) Resp 18 Ht (!) 145 cm (57.09) Wt 46.4 kg (102 lb 4.8 oz) SpO2 98% BMI 22.07 kg/m?? BACK: Mild thoracic kyphosis. Labs: Office Visit on 06/13/2021 Component Date Value Ref Range Status ??? ALBUMIN - [facility] 06/13/2021 4.3 3.4 - 4.9 g/dL Final ??? ALKALINE PHOSPHATASE - [facility] 06/13/2021 45 38 - 126 U/L Final ??? BILIRUBIN TOTAL - [facility] 06/13/2021 0.7 0.2 - 1.3 mg/dL Final ??? BUN - [facility] 06/13/2021 19 10 - 26 mg/dL Final ??? CALCIUM - [facility] 06/13/2021 9.1 8.5 - 10.5 mg/dL Final ??? Chloride 06/13/2021 103 96 - 110 mmol/L Final ??? CO2 Total 06/13/2021 27 22 - 32 mEq/L Final ??? CREATININE 06/13/2021 0.65 0.52 - 1.04 mg/dL Final ? ? eGFR 06/13/2021 >60 Final Comment: Chronic renal impairment is defined as GFR <60 Multiply result by 1.210 for patients. eGFR calculated using the IDMS-traceable MDRD Study Equation. (effective 09/04/2014) ??? Anion Gap 06/13/2021 11 0 - 18 Final ??? GLUCOSE - [facility] 06/13/2021 111* 70 - 100 mg/dL Final ??? Potassium 06/13/2021 4.3 3.5 - 5.0 mEq/L Final ??? Sodium 06/13/2021 141 136 - 145 mEq/L Final ??? TOTAL PROTEIN - [facility] 06/13/2021 6.4 6.2 - 8.2 gm/dL Final ??? SGOT/AST - [facility] 06/13/2021 23 14 - 36 U/L Final ??? SGPT/ALT - [facility] 06/13/2021 15 0 - 35 U/L Final ??? ABSOLUTE NEUTROPHIL COUN - [facility] 06/13/2021 2.5 2.2 - 8.85 10e3/uL Final ??? BASO # - CV 06/13/2021 0.05 0.01 - 0.11 10e/uL Final ??? BASO % - CV 06/13/2021 1 0 - 2 % Final ??? EOS # - CV 06/13/2021 0.15 0.03 - 0.61 10e3/ul Final ??? EOS % - [facility] 06/13/2021 3 0 - 5 % Final ??? GRAN % - CV 06/13/2021 56.1 40 - 80 % Final ??? HEMATOCRIT - CV 06/13/2021 37.1 34.9 - 44.4 % Final ??? HEMOGLOBIN - [facility] 06/13/2021 12.4 11.6 - 15.2 g/dl Final ??? IG# - CV 06/13/2021 0.01 0 - 0.7 10e3/uL Final ??? IG% - [facility] 06/13/2021 0.2 0 - 0.9 % Final ??? LYMPH # - CV 06/13/2021 1.3 1.09 - 3.3 10e3/ul Final ??? LYMPH% - CV 06/13/2021 30.2 20 - 40 % Final ??? MEAN CORPUSCULAR HGB - [facility] 06/13/2021 30.2 26.7 - 33.3 pg Final ??? MEAN CORPUSCULAR HGB CONC - [facility] 06/13/2021 33.4 32.1 - 35.9 g/dL Final ??? MEAN CELL VOLUME - CV 06/13/2021 90.5 81 - 98 fl Final ??? MONO # - CV 06/13/2021 0.4 0.1 - 0.8 10e3/uL Final ??? MONO% - CV 06/13/2021 9.0 0 - 12 % Final ??? PLATELET COUNT 06/13/2021 212 141 - 377 10e3/ul Final ??? RED BLOOD COUNT - [facility] 06/13/2021 4.10 3.86 - 5.04 10e6/ul Final ? ? RED CELL DISTRI WIDTH - [facility] 06/13/2021 12.6 <14.7 % Final ??? WHITE BLOOD COUNT - [facility] 06/13/2021 4.4 4.0 - 12.4 10e3/ul Final Assessment and Plan: 1. Age-related osteoporosis without current pathological fracture Loss of BMD at the spine, despite ibandronate x 5 years. Hip BMD stable. Will stop ibandronate and plan for a dose of zoledronic acid. Reviewed possible side effects, including ONJ and atypical femur fracture. - BASIC METABOLIC PANEL (BMP); Future - VITAMIN D (25,[place]); Future Follow up one year. Lin Grider MD 07/29/2021 8:45 documented in this encounter Plan of Treatment Upcoming Encounters Date Type Department Care Team (Late st Contact Info) Description 08/10/2024 16:00 EDT Appointment [facility] MRI [address], [place] [id number] 08/16/2024 14:00 EDT EMILIA [facility] OBGYN Ultrasound [address] [place] [address] 08/29/2024 14:00 EDT Office Visit [facility] OBGYN [address] [place] [phone] Ness Vilchis MD [address] [place] [address]-, [address] [place] [address] 08/31/2024 16:00 EDT Office Visit [facility] Orthopedics & Sport Medicine [address], [address] [place] [address] Reema Peoples PA-C [address] [facility] [address] [place], [place] [phone] 09/01/2024 9:30 EDT Office Visit [facility] Rheumatology [address], [place] [phone] Lin Grider MD [address] [facility] [address] [place] [address] 11/08/2024 14:00 EST Office Visit [facility] Adult Hematology & Oncology [facility] [place] [address] Luz Maria Peter NP [address] [facility], [facility] [address] [place] [address] 11/22/2024 10:15 EST Office Visit [facility] [place] [address] [place] [phone] Clint Miramontes MD [address] [place] [phone] documented as of this encounter Visit Diagnoses Diagnosis Age-related osteoporosis without current pathological fracture- Primary Senile osteoporosis documented in this encounter Discontinued Medications Medication Sig Discontinue Reason Start Date End Da te ibandronate (BONIVA) 150 mg tabletIndications:Age-rel ated osteoporosis without current pathological fracture TAKE ONE TABLET BY MOUTH ONCE A MONTH Alternate therapy 07/09/2021 07/29/2021 documented as of this encounter Care Teams Dry Cell Assembly Supervisor Relationship Specialty Start Date End Date Clint Miramontes MD [address] [place] [phone] PCP - General 08/23/19 documented as of this encounter
--- OUTSIDE RECORDS SUMMARY | 2024-08-07 13:38 | XMS_ITS | Encounter Summary ---
Author Organization [facility] [place] Address [address] [place] [address] Care Team Providers Care Canadian Bacon Tier Name Role Phone Clint Miramontes MD Primary Care Provider [phone] Encounter Details Date Type Department Care Team (Late st Contact Info) Description 07/05/2021 Results Only Imaging [facility] Radiology Results [address] [place] [address] Clint Miramontes MD [address] [place] [phone] Social History Tobacco Use Types Packs/Day Years [...] Contact Info) Description 08/10/2024 16:00 EDT Appointment [facility] MRI [address] [place] [address] 08/16/2024 14:00 EDT EMILIA [facility] OBGYN Ultrasound [address] [place] [address] 08/29/2024 14:00 EDT Office Visit [facility] OBGYN [address] [place] [address] Ness Vilchis MD [address] [place] [address], [address] [place] [phone] 08/31/2024 16:00 EDT Office Visit [facility] Orthopedics & Sport Medicine [address], [address] [place], [place] [phone] Reema Peoples, PA-C [address] [facility] [address] [place], [place] [phone] 09/01/2024 9:30 EDT Office Visit [facility] Rheumatology [address] [place] [phone] Lin Grider MD [address] [place], [place] [address] [address] [place] [address] 11/08/2024 14:00 EST Office Visit [facility] Adult Hematology & Oncology [address] [place] [address] Luz Maria Peter NP [address] [place] [address], [facility] [address] [place] [phone] 11/22/2024 10:15 EST Office Visit [facility] Family Medicine - [place] [address] [place] [address] Clint Miramontes MD [address] [place] [phone] documented as of this encounter Procedures Procedure Name Priority Date/Time Associated Diagnosis Comments CT ABDOMEN PELVIS W CONTRAST 07/05/2021 10:18 EDT documented in this encounter Results * CT ABDOMEN PELVIS W CONTRAST (07/05/2021 10:18 EDT) Anatomical Region Laterality Modality Body, Abdomen, Pelvis, Abdomen and Pelvis Computed Tomography 07/05/2021 10:1 5 EDT Narrative 07/05/2021 10:18 EDT ? EXAM: CAT SCAN/ABDOMEN PELVIS WITH CONTRA EX. D/ (0929) ? CLINICAL INFORMATION: ? R10.11 RUQ PAIN ? ABDOMINAL PAIN, ACUTE, NONLOCALIZED ? ABDOMEN PELVIS WITH CONTRAST ??07/05/2021 9:29 AM ? Signs and Symptoms/Comments: ? R10.11 RUQ PAIN, ABDOMINAL PAIN, ACUTE, NONLOCALIZED ? Technique: CT of the abdomen and pelvis was performed following the ? administration intravenous contrast; coronal and sagittal multiplanar ? reconstructions generated. ? Comparison: 10/28/2013. ? FINDINGS: ? Lower chest: No abnormalities. ? Hepatobiliary: No abnormalities. ? Spleen, pancreas, adrenal glands: No significant abnormalities. ? Kidneys, ureters, bladder: 1.0 cm right renal cysts. No ? hydronephrosis. No solid mass. Mildly prominent right ureter, ? unchanged since 2012. No obstructing stones or mass. Bladder ? thin-walled. ? Reproductive: Calcified uterine mass, likely a fibroid. 2.0 cm ? low-density left adnexal cystic lesion, new since 2012. ? Bowel: No bowel obstruction or focal bowel wall thickening. Normal ? appendix. No diverticular disease. ? Peritoneal cavity / Subperitoneal space: No free fluid. No free ? intraperitoneal air. ? Lymphovascular: Atherosclerosis. No lymphadenopathy. ? Abdominal wall: Intact. ? Musculoskeletal: Degenerative spondylosis. No acute osseous ? abnormality. ? IMPRESSION: ? 1. No findings to explain acute right lower quadrant pain. Normal ? appendix. ? PAGE 1 ? Signed Report ? (CONTINUED) ? 2. 2.0 cm left adnexal cystic lesion, new since 2012. As this is a ? new finding, recommend further evaluation with pelvic sonography. ? REPORT SIGNED IN OTHER VENDOR SYSTEM 07/05/2021 ?Reported By: French Dugan MD ? CC: ? Transcribed Date/Time: 07/05/2021 (1018) ? Name Plate Stamper: ? Printed Date/Time: 07/05/2021 (1018) ? PAGE 2 ? Signed Report ? Procedure Note French Dugan MD - 07/05/2021 EXAM: CAT SCAN/ABDOMEN PELVIS WITH CONTRA EX. D/ (0929) CLINICAL INFORMATION: R10.11 RUQ PAIN ABDOMINAL PAIN, ACUTE, NONLOCALIZED ABDOMEN PELVIS WITH CONTRAST 07/05/2021 9:29 AM Signs and Symptoms/Comments: R10.11 RUQ PAIN, ABDOMINAL PAIN, ACUTE, NONLOCALIZED Technique: CT of the abdomen and pelvis was performed following the administration intravenous contrast; coronal and sagittalmultiplanar reconstructions generated. Comparison: 10/28/2013. FINDINGS: Lower chest: No abnormalities. Hepatobiliary: No abnormalities. Spleen, pancreas, adrenal glands: No significant abnormalities. Kidneys, ureters, bladder: 1.0 cm right renal cysts. No hydronephrosis. No solid mass. Mildly prominent right ureter, unchanged since 2012. No obstructing stones or mass. Bladder thin-walled. Reproductive: Calcified uterine mass, likely a fibroid. 2.0 cm low-density left adnexal cystic lesion, new since 2012. Bowel: No bowel obstruction or focal bowel wall thickening. Normal appendix. No diverticular disease. Peritoneal cavity / Subperitoneal space: No free fluid. No free intraperitoneal air. Lymphovascular: Atherosclerosis. No lymphadenopathy. Abdominal wall: Intact. Musculoskeletal: Degenerative spondylosis. No acute osseous abnormality. IMPRESSION: 1. No findings to explain acute right lower quadrant pain. Normal appendix. PAGE 1 Signed Report (CONTINUED) 2. 2.0 cm left adnexal cystic lesion, new since 2012. As this is a new finding, recommend further evaluation with pelvic sonography. REPORT SIGNED IN OTHER VENDOR SYSTEM 07/05/2021 Reported By: French Dugan MD CC: Transcribed Date/Time: 07/05/2021 (1018) Name Plate Stamper: Printed Date/Time: 07/05/2021 (1018) PAGE 2 Signed Report Clint Miramontes MD IMG CT ORDERABLES documented in this encounter Visit Diagnoses Not on filedocumented in this encounter Care Teams Canadian Bacon Tier Relationship Specialty Start Date End Date Clint Miramontes MD [address] [place] [phone] PCP - General 08/23/19 documented as of this encounter
--- OUTSIDE RECORDS SUMMARY | 2024-08-07 13:38 | XMS_ITS | Encounter Summary ---
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 ([facility]) Procedures [place] [address] [place] [address] Phone: Fax: [facility] Referral ID Status Reason Start Date Expiration Date V isits Requested Visits Authorized [id number] Specialty Report Received 04/30/2022 06/28/2022 1 1 * Radiology Services (Routine/Next Available) - Specialty Report Received Specialty Diagnoses / Procedures Referred By Annia gan Referred To Contact Diagnoses 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 ([facility]) Procedures CT SOFT [place]ISS[place] [address] [place] [address] Phone: Fax: [facility] Referral ID Status Reason Start Date Expiration Date V isits Requested Visits Authorized [id number] Specialty Report Received 04/30/2022 06/28/2022 1 1 * Radiology Services (Routine/Next Available) - Specialty Report Received Specialty Diagnoses / Procedures Referred By Annia gan Referred To Contact Diagnoses 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) Procedures CT ABDOMEN [place] [address] [place] [address] Phone: Fax: [facility] Referral ID Status Reason Start Date Expiration Date V isits Requested Visits Authorized [id number] Specialty Report Received 04/30/2022 06/28/2022 1 1 Reason for Visit * Reason Comments Follow-up Acute Illness Encounter Details Date Type Department Care Team (Late st Contact Info) Description 04/30/2022 8:30 EDT Office Visit [facility] Adult Hematology & Oncology [address] [place] [phone] [place] [address] [place] [address] (Fax) Lymphoma of lymph nodes of head [...] Sign Reading Time Taken Comments Blood Pressure 124/70 04/30/2022 0821 EDT Pulse 80 04/30/2022 0821 EDT Temperature - - Respiratory Rate - - Oxygen Saturation 99% 04/30/2022 0821 EDT Inhaled Oxygen Concentration - - Weight 44.1 kg (97 lb 3.2 oz) 04/30/2022 0821 ED T Height - - Body Mass Index 20.97 04/21/2022 1608 EDT documented in this encounter [...] Progress Notes * Sheyla Atwood MD - 04/30/2022 0830 EDT Patient Active Problem List Diagnosis ??? 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 Clinical stage IIIa disease with numerous small lymph nodes above and below the diaphragm. No treatment at this time. Subjective Interim History: Mel comes in for follow-up. She saw Dr. Miramontes recently. Reports not feeling well.Lost 10 lbs without knowing in 2-3 months.I feel shaky inside sometimes and I feel weak. Has no appetite. Denies any drenching night sweats. Stopped smoking pot approx a month. She used to do it regularly before that and stopped it due to cough. Recently saw for epigastric discomfort. Has been having this on and off for a long time. He recommended stopping aspirin which she did. Review of Systems: Review of Systems Constitutional: [...] date: 1964 Quit date: 07/03/1982 Years since quittin.8 ??? Smokeless tobacco: Never Used ??? Tobacco [...] As needed) 1 Each 3 Taking ??? aspirin 325 mg tablet Take 1 Tab by mouth daily. (Patient not taking: Reported on 04/21/2022) Not Taking ??? cholecalciferol, Vitamin D3, (VITAMIN D) [...] current facility-administered medications for this visit. Vitals: 04/30/22 0821 BP: 124/70 BP Cuff Location: Left arm Pulse: 80 SpO2: 99% Weight: (!) 44.1 kg (97 lb 3.2 oz) Wt Readings from Last 3 Encounters: 04/30/22 (!) 44.1 kg (97 lb 3.2 oz) 04/21/22 (!) 43.3 kg (95 lb 8 oz) 11/21/21 48 kg (105 lb 12.8 oz) Physical Exam: Physical Exam Constitutional: She [...] affect. Assessment & Plan Marginal zone lymphoma. Experiencing weight loss and reports having no appetite and feeling weak. Recent CBC was within normal limits. Exam today showed a palpable 1 cm lymph node in her left axilla but no adenopathy elsewhere. I will obtain CT neck, chest, abdomen and pelvis for restaging her lymphoma. I will also check ironpanel, vitamin B12 and LDH today. Plan: 1. Return for follow-up in 3 [address] scans[address] Follow-up blood work. 2. She is due for her screening mammogram in June. Other Orders Placed This Visit Procedures ??? CT ABDOMEN PELVIS W CONTRAST ??? CT SOFT TISSUE NECK W CONTRAST ??? CT CHEST W CONTRAST ??? Ferritin ??? Iron ??? IBC ??? Vitamin B12 ??? LDH Sheyla Atwood MD Hematology/Oncology [facility] CC: Dr. Clint Miramontes * Jasson Wyatt RN - 04/30/2022 0830 EDT Procedures: - Venipuncture Performed by: JASSON WYATT RN Site Collected: Right Antecubital Space Volume Withdrawn: [place] SST 8.5 mL Patient Response:Patient tolerated venipuncture well Number of attempts: 1 Ordering Provider:Sheyla Atwood MD documented in this encounter Plan of Treatment Upcoming Encounters Date Type Department Care Team (Late st Contact Info) Description 08/10/2024 16:00 EDT Appointment [facility] MRI [address] [place], [place] [address] 08/16/2024 14:00 EDT EMILIA [facility] OBGYN Ultrasound [address] [place] [address] 08/29/2024 14:00 EDT Office Visit [facility] OBGYN [address] [place], [place] [phone] Ness Vilchis MD [address] [place] [address], [address] [place] [address] 08/31/2024 16:00 EDT Office Visit [facility] Orthopedics & Sport Medicine [address], [address] [place], [place] [phone] Reema Peoples PA-C [address] [facility] [address] [place], [place] [phone] 09/01/2024 9:30 EDT Office Visit [facility] Rheumatology [address] [place] [phone] Lin Grider MD [address] [place], [place] [address]B [address] [place] [address] 11/08/2024 14:00 EST Office Visit [facility] Adult Hematology & Oncology [address] [place] [phone] Luz Maria Peter, GABRIEL [address] [facility], [facility] [address] [place] [address] 11/22/2024 10:15 EST Office Visit [facility] Family Medicine - [place] [address] [place] [address] Clint Miramontes MD [address] [place] [phone] documented as of this encounter Procedures Procedure Name Priority Date/Time Associated Diagnosis Comments IBC Routine 04/30/2022 9:04 EDT 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 Sheyla Atwood MD IMYane CT ORDERABLES * CT SOFT TISSUE NECK [...] supraclinoid ICA which obscures visualization of the port lions of Rea and basilar portions of the [...] supraclinoid ICA which obscures visualization of the port lions ofWillis and basilar portions of the brain. [...] or acute abnormality identified. Sheyla Atwood MD IMYane CT ORDERABLES * CT ABDOMEN PELVIS W [...] Sheyla Atwood MD IMG CT ORDERABLES * LDH (04/30/2022 9:04 EDT) [facility] LDH 200 120 - 246 U/L 04/30/2022 13:22 EDT [facility] Blood VENOUS BLOOD / Unknown Venipuncture / Unknown 04/30/2022 9:04 EDT 04/30/2022 9:04 EDT Sheyla Atwood MD CHEMISTRY & BLOOD GA S ORDERABLES Performing Organization Address City/[facility] Co de Phone Number [facility] [address] [place] [address] * VITAMIN B12 (04/30/2022 9:04 EDT) [facility] Vitamin B12 259 211 - 911 pg/mL 04/30/2022 14:15 EDT [facility] Blood VENOUS BLOOD / Unknown Venipuncture / Unknown 04/30/2022 9:04 EDT 04/30/2022 9:04 EDT Narrative [facility] - 04/30/2022 14:15 EDT The results of this assay can be falsely elevated due to the consumption of Biotin. Sheyla Atwood MD CHEMISTRY & BLOOD GA S ORDERABLES Performing Organization Address City/[facility] Co de Phone Number [facility] [address] [place] [address] * IBC (04/30/2022 9:04 EDT) [facility] Iron Binding Capacity 338 240 - 450 ??g/dL 04/30/2022 13:27 EDT [facility] Blood VENOUS BLOOD / Unknown Venipuncture / Unknown 04/30/2022 9:04 EDT 04/30/2022 9:04 EDT Sheyla Atwood MD CHEMISTRY & BLOOD GA S ORDERABLES Performing Organization Address [facility] de Phone Number [facility] [address] [place] [address] * IRON (04/30/2022 9:04 EDT) Iron 57 37 - 170 ??g/dL 04/30/2022 13:27 EDT [facility] Blood VENOUS BLOOD / Unknown Venipuncture / Unknown 04/30/2022 9:04 EDT 04/30/2022 9:04 EDT Sheyla Atwood MD CHEMISTRY & BLOOD GA S ORDERABLES Performing Organization Address [facility] de Phone Number [facility] [address] [place] [address] * FERRITIN (04/30/2022 9:04 EDT) Ferritin 75 11 - 264 ng/mL 04/30/2022 14:15 EDT [facility] Blood VENOUS BLOOD / Unknown Venipuncture / Unknown 04/30/2022 9:04 EDT 04/30/2022 9:04 EDT Narrative [facility] - 04/30/2022 14:15 EDT The results of this assay can be falsely lowered due to the consumption of Biotin. 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
--- OUTSIDE RECORDS SUMMARY | 2024-08-07 13:38 | XMS_ITS | Encounter Summary ---
Author Organization [facility] Address [address] [place] [address] Care Team Providers Care Special Education Coordinator Name Role Phone Clint Miramontes MD Primary Care Provider [phone] Reason for Visit * Reason Onset Date Comments Orders (Non Pre-visit) 07/05/2021 Encounter Details Date Type Department Care Team (Late st Contact Info) Description 07/05/2021 Telephone [facility] - [address] [address] Maci Farrar RN Orders (Non Pre-visit) Social History Tobacco Use [...] Telephone Encounter - Maci Farrar RN - 07/05/2021 1346 EDT Mel aware. She has the phone number of Radiology if she needs it * Telephone Encounter - Maci Farrar RN - 07/05/2021 1346 EDT Clint Miramontes MD [facility] Nurse 3 minutes ago (13:42) ordered Message text * Telephone Encounter - Maci Farrar RN - 07/05/2021 1330 EDT Reviewed with Mel. She has agreed to getting a transvaginal US. Please place order. * Telephone Encounter - Maci Farrar RN - 07/05/2021 1326 EDT ----- Message from Clint Miramontes MD sent at 07/05/2021 10:35 EDT ----- Uterine cyst - I think we should obtain a transvag US. Send me te if agreeable. Nothing on the right side to explain pain in that area. documented in this encounter Plan of Treatment Upcoming Encounters Date Type Department Care Team (Late st Contact Info) Description 08/10/2024 16:[place] [address] 08/16/2024 14:00 EDT EMILIA [facility] OBGYN Ultrasound [address] [place] [address] 08/29/2024 14:00 EDT Office Visit [facility] OBGYN [address] [place] [address] Ness Vilchis MD [address] [facility], [address] [place] [address] 08/31/2024 16:00 EDT Office Visit [facility] Orthopedics & Sport Medicine [address], [address] [place] [address] Reema Peoples PAToñoC [address] [facility] [address] [place], [place] [phone] 09/01/2024 9:30 EDT Office Visit [facility] Rheumatology [address] [place], [place] [address] Lin Grider MD [address] [place] [address] [address] [place] [address] 11/08/2024 14:00 EST Office Visit [facility] Adult Hematology & Oncology [address] [place] [phone] Luz Maria Peter, GABRIEL [address] [facility] [address] [place] [address] 11/22/2024 10:15 EST Office Visit [facility] Family Medicine - [place] [address] [place], [place] [phone] Clint Miramontes MD [address] [place] [phone] documented as of this encounter Visit Diagnoses Diagnosis Uterine cyst- Primary Other specified disorders of uterus, not elsewhere classified documented in this encounter Care Teams Special Education Coordinator Relationship Specialty Start Date End Date Clint Miramontes MD [address] [place] [phone] PCP - General 08/23/19 documented as of this encounter
--- OUTSIDE RECORDS SUMMARY | 2024-08-07 13:38 | XMS_ITS | Encounter Summary ---
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 ([facility]) Procedures COMPLETE BLOOD COUNT [place] Miramontes MD [address] [place] [address] Referral ID Status Reason Start Date Expiration Date V isits Requested Visits Authorized [id number] New Request 04/11/2022 1 1 Encounter Details Date Type Department Care Team (Late st Contact Info) Description 04/16/2022 13:50 EDT Phlebotomy Only [facility] - Outpatient Phlebotomy Drawing [address] [place] [address] Lab, [facility] Op Phlebotomy Weight loss; 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 ([facility]) (HCC) ([facility]) Social History Tobacco Use Types Packs/Day Years [...] Contact Info) Description 08/10/2024 16:00 EDT Appointment [facility] MRI [address] [place], [place] [id number] 08/16/2024 14:00 EDT EMILIA [facility] OBGYN Ultrasound [address] [place], [place] [address] 08/29/2024 14:00 EDT Office Visit [facility] OBGYN [address] [place], [place] [id number] Ness Vilchis MD [address] [place] [address], [address] [place] [address] 08/31/2024 16:00 EDT Office Visit [facility] Orthopedics & Sport Medicine [address], [address] [place], [place] [id number] Reema Peoples PA-C [address] [facility] [address] [place], [place] [id number] 09/01/2024 9:30 EDT Office Visit [facility] Rheumatology [address] [place], [place] [address] Lin Grider MD [address] [place] [address] [address] [place] [address] 11/08/2024 14:00 EST Office Visit [facility] Adult Hematology & Oncology 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) (HCC) (HCC-CMS) TSH Routine 04/16/2022 13:54 EDT 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) (HCC) (HCC-CMS) LIPASE Routine 04/16/2022 13:54 EDT 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) (HCC) (HCC-CMS) AMYLASE Routine 04/16/2022 13:54 EDT 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) (HCC) (HCC-CMS) COMPREHENSIVE METABOLIC PANEL (CMP) Routine 04/16/2022 13:54 EDT 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) (HCC) (HCC-CMS) documented in this encounter Results * AMYLASE (04/16/2022 13:54 EDT) Amylase 66 30 - 110 U/L 04/16/2022 15:24 EDT [facility] Blood VENOUS BLOOD / Unknown Venipuncture / Unknown 04/16/2022 13:54 EDT 04/16/2022 14:42 EDT [place] Miramontes MD CHEMISTRY & BLOOD GA S ORDERABLES Performing Organization Address [facility] Phone Number [facility] [address] [place] [address] * LIPASE (04/16/2022 13:54 EDT) Lipase 90 <251 U/L 04/16/2022 15:24 EDT [facility] Blood VENOUS BLOOD / Unknown Venipuncture / Unknown 04/16/2022 13:54 EDT 04/16/2022 14:42 EDT [place] Miramontes MD CHEMISTRY & BLOOD GA S ORDERABLES Performing Organization Address [facility] Number [facility] [address] [place] [address] * TSH (04/16/2022 13:54 EDT) TSH 0.54 0.47 - 4.68 mIU/L 04/16/2022 15:59 EDT [facility] Blood VENOUS BLOOD / Unknown Venipuncture / Unknown 04/16/2022 13:54 EDT 04/16/2022 14:42 EDT Narrative [facility] - 04/16/2022 15:59 EDT The results of this assay can be falsely lowered due to the consumption of Biotin. [place] Miramontes MD CHEMISTRY & BLOOD GA S ORDERABLES Performing Organization Address [facility] Phone Number [facility] [address] [place] [address] * COMPREHENSIVE METABOLIC PANEL (CMP) (04/16/2022 13:54 EDT) Sodium 138 136 - 145 mmol/L 04/16/2022 15:24 [facility] Potassium 4.3 3.5 - 5.0 [...] Ratio 1.5 1.0 - 2.5 04/16/2022 15:24 [facility] Anion Gap 7 5 - 14 04/16/2022 15:24 [facility] Blood VENOUS BLOOD / Unknown Venipuncture / Unknown 04/16/2022 13:54 EDT 04/16/2022 14:42 EDT [place] Miramontes MD CHEMISTRY & BLOOD GA S ORDERABLES Performing Organization Address City/[facility]/ZIP Co de Phone Number [facility] [address] [place] [address] * COMPLETE BLOOD COUNT (04/16/2022 13:54 EDT) WBC 6.36 4.00 - 12.40 K/cmm 04/16/2022 14:54 EDT [facility] RBC 4.15 3.86 - 5.04 M/cmm 04/16/2022 14:54 EDT [facility] Hemoglobin 11.9 11.6 - 15.2 gm/dL 04/16/2022 14:54 [facility] HCT 35.9 34.9 - 44.4 % 04/16/2022 14:54 [facility] MCV 87 81 - 98 fl 04/16/2022 14:54 [facility] MCH 28.7 26.7 - 33.3 pg 04/16/2022 14:54 EDT [facility] MCHC 33.1 32.1 - 35.9 gm/dL 04/16/2022 14:54 [facility] RDW-CV 14.4 <14.7 % 04/16/2022 14:54 [facility] RDW-SD 45.7 <50.4 fl 04/16/2022 14:54 [facility] PLT 238 141 - 377 K/cmm 04/16/2022 14:54 [facility] MPV 9.6 9.5 - 12.7 fl 04/16/2022 14:54 [facility] Blood VENOUS BLOOD / Unknown Venipuncture / Unknown 04/16/2022 13:54 EDT 04/16/2022 14:42 EDT [place] Miramontes MD HEMATOLOGY & PF4 ORD ERABLES Performing Organization Address City/[facility]/ZIP Co de Phone Number [facility] [address] [place] [address] documented in this encounter Visit Diagnoses Diagnosis Weight loss Loss of weight 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
--- OUTSIDE RECORDS SUMMARY | 2024-08-07 13:38 | XMS_ITS | Encounter Summary ---
Author Organization [facility] Address [address] [place] [address] Care Team Providers Care [employer] Football Coach Name Role Phone [place] Miramontes MD Primary Care Provider [phone] Encounter Details Date Type Department Care Team (Late st Contact Info) Description 03/25/2022 Documentation Visit [facility] [address] [place], [place] [phone] Blanca Virgen MD [facility] [address] [place] [address] Social History Tobacco Use Types Packs/Day Years [...] as of this encounter Progress Notes * Blanca Virgen MD - 03/25/2022 0921 EDT GI CONSULT FOLLOW UP NOTE Author: BLANCA VIRGEN MD PCP: [place] Miramontes Subjective: This is a 71-year-old female who is referred by Dr. Miramontes for epigastric pain. She is known to me from prior colonoscopy is and history of adenomatous polyp in 2010. She also had an EGD performed in 2010 because of history of lymphoma and stomach complaints. The EGD did show mild erosive gastritis but no ulcer. She now reports that she has had pain which she now describes as being located inthe right upper quadrant and is intermittent for about 6 months. She is not certain that it is related to eating. She notes that sometimes it is worse if she lays down. There is no radiation into theback and the pain does not wake her from sleep. She has not had any nausea, vomiting, hematemesis, or melena. She does say that her appetite is poor although this is not a new thing for her. She believes she may have lost about 4 or 5 pounds in the last 1 year. She denies any change in bowel habits. She does take aspirin 325 mg/day which she has been taking since she had coil embolization of her aneurysm. She was told however that she does not necessarily need to take this regularly if she doesnot want to. Past Medical History: Diagnosis Date ??? Aneurysm [...] left neck & node removal ??? TONSILLECTOMY Current Outpatient Medications on File Prior to Visit Medication Sig Dispense Refill ??? albuterol sulfate 90 mcg/actuation aero powdr breath act w/sensor 2 puff(s) inhaled every 4 hours as needed ??? aspirin 325 mg tablet Take 1 Tab by mouth daily. ??? cholecalciferol, Vitamin D3, (VITAMIN D) 1,000 unit tablet Take 4,000 Units by mouth daily. ??? diazePAM (VALIUM) 2 mg tablet 1 tab PO bid PRN fying. 6 Tablet 3 ??? fluticasone propionate (FLOVENT HFA) 110 mcg/actuation inhaler Inhale 2 Puffs as directed every12 hours. (Patient not taking: Reported on 11/21/2021) 3 Inhaler 3 ??? inhalational spacing device (E-Z SPACER) Inhale 1 Device as directed 2 times daily. For use with Flovent inhaler. Dx: J44.9. 1 Device 0 ??? LORazepam (ATIVAN) 1 mg tablet Take 1 Tablet by mouth at bedtime as needed for Anxiety. Daily Max: 1 mg 30 Tablet 3 ??? lovastatin (MEVACOR) 40 mg tablet Take 2 Tablets by mouth daily. 180 Tablet 3 No current facility-administered medications on file prior to visit. Objective: Vital signs: Temperature 94.4, weight 100, BP 156/71, pulse 65. Gen: NAD. AAOx3 Skin: Warm. Dry. No rashes or lesions HEENT: Anicteric Sclera. Pulm: CTAB. No wheezing, rales, or rhonchi Card: RRR. S1, S2 normal. No murmurs, rubs, or gallops Abd: Soft. Non-distended. Mild right upper quadrant and epigastric tenderness. Normoactive bowel sounds Ext: No edema Neuro: Spontaneously moving bilateral upper and lower extremities without focal deficits Labs/Imaging/Procedures: Data reviewed. Pertinent results as follows: Hemoglobin was 12.8 in November, chemistry profile was also normal at that time. Right upper quadrant ultrasound in 03/22 was normal including no evidence of gallstones. CT scan of the abdomen and pelvis was performed in 07/23 and was normal. ASSESSMENT: Mel Ramirez is a 71 y.o. female who presents with right upper quadrant pain of uncertain etiology. The differential diagnosis would include peptic ulcer disease, gastritis, NSAID gastropathy, biliary dyskinesia, and functional dyspepsia. In the absence of alarm symptoms, I do not feel that a repeat endoscopy is indicated at this point. We discussed some options for treatment including avoidance of aspirin as it does not appear to be clearly indicated, trial of omeprazole for a few weeks. We also discussed the option of testing for H. pylori and treating if positive versus performing endoscopy or repeating CT scan of the abdomen. More than 50% of this session was spent counseling the pa jason on these topics face to face. Total time spent was approximately 45 minutes including taking the history, counseling the patient and preparing the report. PLAN: 1. For the present time she will try to eliminate aspirin to see whether that relieves her symptoms. 2. She has an upcoming visit with her PCP at which time she could be tested for H. pylori by eitherbreath test for stool antigen testing. 3. Consider trial of omeprazole 20 mg once a day. 4. If no improvement with above consider repeating CT scan of the abdomen. 5. If she develops any alarm symptoms would proceed with EGD. BLANCA VIRGEN MD 03/25/2022 documented in this encounter Plan of Treatment Upcoming Encounters Date Type Department Care Team (Late st Contact Info) Description 08/10/2024 16:00 EDT Appointment [facility] MRI [address] [place] [address] 08/16/2024 14:00 EDT EMILIA [facility] OBGYN Ultrasound [address] [place] [address] 08/29/2024 14:00 EDT Office Visit [facility] OBGYN [address] [place], [place] [phone] Ness Vilchis MD [address] [facility] [address], [address] [place] [address] 08/31/2024 16:00 EDT Office Visit [facility] Orthopedics & Sport Medicine [address], [address] [place] [address] Reema Peoples PA-C [address] [facility] [address] [place] [address] 09/01/2024 9:30 EDT Office Visit [facility] Rheumatology [address] [facility], [place] [phone] Lin Grider MD [address] [facility] [address] [place] [phone] 11/08/2024 14:00 EST Office Visit [facility] Adult Hematology & Oncology [address] [place] [address], [place] [address] Luz Maria Peter NP [address] [facility], [facility] [address] [place] [address] 11/22/2024 10:15 EST Office Visit [facility] Family Medicine - [place] [address] [place] [phone] [place] Miramontes MD [address] [place] [phone] documented as of this encounter Visit Diagnoses Not on filedocumented in this encounter Care Teams [employer] Football Coach Relationship Specialty Start Date End Date [place] Miramontes MD [address] [place] [phone] PCP - General 08/23/19 documented as of this encounter
--- OUTSIDE RECORDS SUMMARY | 2024-08-07 13:38 | XMS_ITS | Encounter Summary ---
Author Organization [facility] Address [address] [place] [address] Care Team Providers Care Chemical Tester Name Role Phone [place] Miramontes MD Primary Care Provider [phone] Reason for Referral * Radiology Services (Routine/Next Available) - Authorization Not Required Specialty Diagnoses / Procedures [facility] Referred To Contact Diagnoses Chronic obstructive pulmonary disease, unspecified COPD type (HCC-CMS) Weight loss Procedures XR CHEST 2 VIEWS [place] Miramontes MD [address] [place] [phone] [facility] Referral ID Status Reason Start Date Expiration Date Visits Requested Visits Authorized [id number] Authorization Not Required 04/21/2022 1 1 Reason for Visit * Reason Comments Weight Loss Other finger nails tipping up Fatigue Dizziness Encounter Details Date Type Department Care Team (Late st Contact Info) Description 04/21/2022 16:00 EDT Office Visit 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) (HCC) (HCC-CMS) (Primary Dx); Anxiety; Chronic obstructive pulmonary disease, unspecified COPD type ([facility]) (HCC) ([facility]); Epigastric pain; Mixed hyperlipidemia; Weight loss Social History Tobacco Use Types [...] Sign Reading Time Taken Comments Blood Pressure 100/60 04/21/2022 1608 EDT Pulse 76 04/21/2022 1608 EDT Temperature 36.8 ??C (98.3 ??F) 04/21/2022 1608 EDT Respiratory Rate 16 04/21/2022 1608 EDT Oxygen Saturation 98% 04/21/2022 1608 EDT Inhaled Oxygen Concentration - - Weight 43.3 kg (95 lb 8 oz) 04/21/2022 1608 EDT Height 145 cm (4' 9.09) 04/21/2022 1608 EDT Body Mass Index 20.6 04/21/2022 1608 EDT documented in this encounter [...] 1 mg 30 Tablet 3 04/21/2022 08/15/2022 documented in this encounter Progress Notes * [place] Miramontes MD - 04/21/2022 1600 EDT Subjective: Patient ID: Mel Ramirez is an 71 y.o. female. Stomach pain HPI 1) Lipids - managed with lipid [...] 2021 showed no evidence of any lymphadenopathy. Blood counts reviewed and wnl. Will continue to follow her on observation. ??5)Right abdomen pain - on and off. CT ok 2014. ?03/22 US normal RUQ. ?No nausea/vomiting. ?No weight loss. Not food related. ?No blood in stool. ?Colonoscopy UTD. Seen by GI: ?? Mel Ramirez is a 71 y.o. female [...] this session was spent counseling the pa tient on these topics face to face. Total time spent was approximately 45 minutes including taking the history, counseling the patient and preparing the report. US transvag- IMPRESSION: 1. Myomatous uterus. 2. Left ovarian septated cyst versus 2 contiguous simple cysts. No suspicious associated findings. Follow-up as felt clinically indicated. CT 07/23- IMPRESSION: 1. No findings to explain acute right lower quadrant pain. Normal appendix. Lab Results Component Value Date WBC 6.36 04/16/2022 HGB 11.9 04/16/2022 HCT 35.9 04/16/2022 MCV 87 04/16/2022 PLT 238 04/16/2022 Lab Results Component Value Date CHOL 161 11/21/2021 CHOL 178 03/13/2020 CHOL 194 08/15/2019 HDL 48 11/21/2021 HDL 51 03/13/2020 HDL 51 08/15/2019 LDLBASE 92 11/21/2021 TRIG 104 11/21/2021 TRIG 115 03/13/2020 TRIG 81 08/15/2019 CHOLHDL 3.4 11/21/2021 CHOLHDL 3.4 03/13/2020 CHOLHDL 3.8 08/15/2019 Lab Results Component Value Date NA 138 04/16/2022 K 4.3 04/16/2022 CL 99 04/16/2022 CO2 32 04/16/2022 Lab Results Component Value Date CREATININE 0.65 04/16/2022 Patient Active Problem List Diagnosis ??? Cerebral aneurysm, nonruptured ??? Mixed hyperlipidemia ??? Anxiety ??? 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 Aneurysm (HCC-CMS) (HCC) ??? Chronic obstructive pulmonary disease (HCC-CMS) (HCC) ??? Female bladder prolapse ??? Impaired glucose tolerance ??? LBBB (left bundle branch block) ??? Osteoporosis ??? Sleep disturbance ??? Vitamin D deficiency Past Medical History: Diagnosis Date ??? Aneurysm [...] daily. (Patient not taking: Reported on 04/21/2022) ??? cholecalciferol, Vitamin D3, (VITAMIN D) 1,000 unit tablet Take 4,000 Units by mouth daily. ??? diazePAM (VALIUM) 2 mg tablet 1 tab PO bid PRN fying. 6 Tablet 3 ??? fluticasone propionate (FLOVENT HFA) 110 mcg/actuation inhaler Inhale 2 Puffs as directed every12 hours. 3 Inhaler 3 ??? inhalational spacing device [...] does edibles ROS - See HPI Objective: There were no vitals taken for this visit. Wt Readings from Last 3 Encounters: 11/21/21 48 kg (105 lb 12.8 oz) 11/19/21 46.7 kg (103 lb) 10/03/21 47.4 kg (104 lb 8 oz) BP Readings from Last 3 Encounters: 11/21/21 100/62 11/19/21 100/56 10/03/21 110/70 Physical Exam Gen: Alert and oriented. No distress Cardiovascular: Normal rate, regular rhythm and normal heart sounds. No murmurs. Pulmonary/Chest: Effort normal and breath sounds normal. Abdomen: soft NT/ND. No hepatosplenomegaly Musculoskeletal: Normal range of motion. Neuro: no gross defects. Skin: Skin is warm. No rash. Lymph: no lymphadenopathy. Psychiatric: normal mood and affect. Assessment: Weight loss - normal labs. I recommend CXR and follow up with Dr. Ames. She is agreeable. HPylori collected today. Lymphoma - follow up with Oncology. ? Lipids - conitnue statin. ? Labs today Anxiety - managed with prn lorazapam. ?? She is not interested in SSRIs. No SI/HI. Follow up with me in 4-6 mo ? I spent a total of 30 minutes on the date of this encounter meeting with the patient and reviewing documentation/coordinating care as described in the above note. 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 PYLORI BREATH TEST Mixed hyperlipidemia No follow-ups on file. * Cori Camargo, ATTILA - 04/21/2022 1600 EDT Mel is here for concerns of the followin) Weight loss 2) Lethargy 3) vertigo 4) Fingernail concern 5) Feeling of shakeyness documented in this encounter Plan of Treatment Upcoming Encounters Date Type Department Care Team (Late st Contact Info) Description 08/10/2024 16:00 [place] [address] 08/16/2024 14:00 EDT EMILIA [facility] OBGYN Ultrasound [address] [place] [address] 08/29/2024 14:00 EDT Office Visit [facility] OBGYN [address] [place] [address] Ness Vilchis MD [address] [facility], [address] [place] [address] 08/31/2024 16:00 EDT Office Visit [facility] Orthopedics & Sport Medicine [address], [address] [place] [address] Reema Peoples PA-C [address] [facility] [address] [place] [address] 09/01/2024 9:30 EDT Office Visit [facility] Rheumatology [address] [place], [place] [phone] Lin Grider MD [address] [place] [address] [address] [place] [address] 11/08/2024 14:00 EST Office Visit [facility] Adult Hematology & Oncology [address] [place] [address] Luz Maria Peter, GABRIEL [address] [facility] [address] [place] [address] 11/22/2024 10:15 EST Office Visit [facility] Family Medicine - [place] [address] [facility], [place] [phone] [place] Miramontes MD [address] [place] [phone] documented as of this encounter Results * XR CHEST 2 [...] of head and neck region (HCC-CMS)- Primary Anxiety Anxiety state, unspecified Chronic obstructive pulmonary disease, unspecified COPD type (HCC-CMS) Epigastric pain Abdominal pain, epigastric Mixed hyperlipidemia Weight loss Loss of weight Chronic obstructive pulmonary disease, unspecified COPD type (HCC-CMS) Weight loss Loss of weight documented in this encounter Discontinued Medications Medication Sig Discontinue Reason Start Date End Da te albuterol sulfate 90 mcg/actuation aero powdr breath act w/sensor 2 puff(s) inhaled every 4 hours as needed Reorder 04/21/2022 fluticasone propionate (FLOVENT HFA) 110 mcg/actuation inhaler Inhale 2 Puffs as directed every 12 hours. Reorder 01/20/2020 04/21/2022 LORazepam (ATIVAN) 1 mg tablet Take 1 Tablet by mouth at bedtime as needed for Anxiety. Daily Max: 1 mg Reorder 12/24/2021 04/21/2022 documented as of this encounter Care Teams Chemical Tester Relationship Specialty Start Date End Date [place] Miramontes MD [address] [place] [phone] PCP - General 08/23/19 documented as of this encounter
--- OUTSIDE RECORDS SUMMARY | 2024-08-07 13:38 | XMS_ITS | Encounter Summary ---
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) (HCC) ([facility]) (Primary Dx); Anxiety; Vitamin D deficiency; Mixed hyperlipidemia; Chronic obstructive pulmonary disease, unspecified COPD type (HCC-CMS) (HCC) (HCC-CMS); Age-related osteoporosis without current pathological fracture; Epigastric pain Social History Tobacco Use Types Packs/Day Years [...] Sign Reading Time Taken Comments Blood Pressure 100/62 11/21/2021 1026 EST Pulse 80 11/21/2021 1026 EST Temperature - - Respiratory Rate - - Oxygen Saturation - - Inhaled Oxygen Concentration - - Weight 48 kg (105 lb 12.8 oz) 11/21/2021 1026 ES T Height - - Body Mass Index 22.82 10/03/2021 1016 EST documented in this encounter [...] Daily Max: 1 mg 30 Tablet 3 11/21/2021 12/23/2021 diazePAM (VALIUM) 2 mg tablet 1 tab PO bid PRN fying. 6 Tablet 3 11/21/2021 04/03/2023 documented in this encounter Progress Notes * Clint Miramontes MD - 11/21/2021 1030 EST Subjective: Patient ID: Mel Ramirez is an 71 y.o. female. Chief Complaint Patient presents with ??? Follow-up Anxiety HPI Lipids - managed with lipid medications. ??No side effects. COPD - using MDI albuterol and Flovent. No chronic cough. ??No chest pains. No shortness of breath. Anxiety - sparing use of lorazapam. ??No SI/HI. ??No panic attacks. Marginal Zone lymphoma - doing well. ??No B symptoms. ?Seeing Dr. Ricci routinely.?Right abdomen pain - on and off. CT ok 2014. 03/22 US normal RUQ. No nausea/vomiting. No weight loss. Not food related. No blood in stool. Colonoscopy UTD. Patient Active Problem List Diagnosis ??? Cerebral [...] Take 4,000 Units by mouth daily. ??? fluticasone propionate [...] edibles ROS - See HPI Objective: BP 100/62 (BP Cuff Location: Right arm, BP Patient Position: Sitting) Pulse 80 Wt 48 kg (105 lb12.8 oz) BMI 22.82 kg/m?? Wt Readings from Last 3 Encounters: 11/21/21 [...] Follow up with me in 4-6 mo Abd pain - I recommended GI referral at this point. She is agreeable. I spent a total of 30 minutes on the date of this encounter meeting with the patient and reviewing documentation/coordinating care as described in the above note. Plan: There are no diagnoses linked to this encounter. No follow-ups on file. * Linda Curtis RN - 11/21/2021 1030 EST Performed by: [facility] Link Site Collected Left Antecubital Space Volume Withdrawn STT; 8.5ml Patient Response Number of attempts 1 Ordering Provider: MD Sarina documented in this encounter Plan of Treatment Upcoming Encounters Date Type Department Care Team (Late st Contact Info) Description 08/10/2024 16:00 EDT Appointment [facility] MRI [address] [place], [place] [id number] 08/16/2024 14:00 EDT EMILIA [facility] OBGYN Ultrasound [address] [place] [address] 08/29/2024 14:00 EDT Office Visit [facility] OBGYN [address] [place], [place] [phone] Ness Vilchis MD [address] [place] [address]-[address], [address] [place] [address] 08/31/2024 16:00 EDT Office Visit [facility] Orthopedics & Sport Medicine [address], [address] [place] [address] Reema Peoples PA-C [address] [facility] [address] [place], [place] [phone] 09/01/2024 9:30 EDT Office Visit [facility] Rheumatology [address] [place], [place] [phone] Lin Grider MD [address] [facility] [address] [place] [address] 11/08/2024 14:00 EST Office Visit [facility] Adult Hematology & Oncology [facility] [place] [address] Luz Maria Peter, GABRIEL [address] [facility], [facility] [address] [place] [address] 11/22/2024 10:15 EST Office Visit [facility] Family Medicine - [place] [address] [place] [address] Clint Miramontes MD [address] [place] [phone] documented as of this encounter Procedures Procedure Name Priority Date/Time Associated Diagnosis Comments VITAMIN D (25,[place]) Routine 11/21/2021 11: 21 EST Mixed hyperlipidemia LIPID PROFILE (INCLUDES CHOLESTEROL, TRIGLYCERIDES, HDL, LDL) Routine 11/21/2021 11:21 EST Mixed hyperlipidemia COMPREHENSIVE METABOLIC PANEL (CMP) Routine 11/21/2021 11:21 EST Mixed hyperlipidemia documented in this encounter Results * VITAMIN D (25,[place]) (11/21/2021 11:21 EST) 25OH Vitamin D Tot 39 30 - 100 ng/mL 11/21/2021 18:18 EST [facility] Blood VENOUS BLOOD / Unknown Venipuncture / Unknown 11/21/2021 11:21 EST 11/21/2021 11:21 EST Clint Miramontes MD CHEMISTRY & BLOOD GA S ORDERABLES [facility] [address] [place] [address] * LIPID PROFILE (INCLUDES CHOLESTEROL, TRIGLYCERIDES, HDL, LDL) (11/21/2021 11:21 EST) Cholesterol 161 See Note mg/dL 11/21/2021 17:57 [facility] Comment: Acceptable: ?<200 mg/dL Borderline High: 200-239 mg/dL High: ?> or = 240 mg/dL HDL 48 See Note mg/dL 11/21/2021 17:57 [facility] Comment: Low: ? <40 mg/dL Normal: ??40-60 mg/dL High: ?>60 mg/dL LDL, Calculated 92 See Note mg/dL 11/21/2021 17:57 [facility] Comment: Optimal: ? <100 mg/dL Near Optimal: ?100-129 mg/dL Borderline High: 130-159 mg/dL High: ?160-189 mg/dL Very High: ? > or = 190 mg/dL Triglyceride 104 See Note mg/dL 11/21/2021 17:57 [facility] Comment: Normal: ? <150 mg/dL Borderline High: ??150 - 199 mg/dL High: ? 200 - 499 mg/dL Very High: ?> or = 500 mg/dL Chol/HDL Ratio 3.4 See Note 11/21/2021 17:57 [facility] Comment: NOTE: Desirable Ratio = <4.1 Patient At Risk Ratio = >5.0(Males) ?>6.0(Females) Non HDL Cholesterol 113 See Note mg/dL 11/21/2021 17:57 [facility] Comment: Desirable: ?<130 mg/dL Borderline High: ??130-159 mg/dL High: ? 160-189 mg/dL Very High: ?> or = 190 mg/dL Blood VENOUS BLOOD / Unknown Venipuncture / Unknown 11/21/2021 11:21 EST 11/21/2021 11:21 EST Clint Miramontes MD CHEMISTRY & BLOOD GA S ORDERABLES [facility] [address] [place] [address] * COMPREHENSIVE METABOLIC PANEL (CMP) (11/21/2021 11:21 EST) Sodium 137 136 - 145 mmol/L 11/21/2021 18:15 [facility] Potassium 4.8 3.5 - 5.0 mmol/L 11/21/2021 18:15 [facility] Chloride 96 96 - 110 mmol/L 11/21/2021 18:15 [facility] CO2 Total 32 22 - 32 mmol/L 11/21/2021 18:15 [facility] Glucose 94 70 - 100 mg/dL 11/21/2021 18:15 [facility] BUN 14 10 - 26 mg/dL 11/21/2021 18:15 [facility] Creatinine 0.65 0.52 - 1.04 mg/dL 11/21/2021 18:15 [facility] eGFR 89 >60 mL/min/1.7 3m2 11/21/2021 18:15 [facility] Total Protein 7.0 6.3 - 8.2 g/dL 11/21/2021 18:15 [facility] Albumin 4.3 3.4 - 4.9 g/dL 11/21/2021 18:15 [facility] Alkaline Phosphatase 76 38 - 126 U/L 11/21/2021 18:15 [facility] AST 22 15 - 46 U/L 11/21/2021 18:15 [facility] ALT 13 <35 U/L 11/21/2021 18:15 [facility] Bilirubin, Total 0.7 <1.4 mg/dL 11/21/19 18:15 [facility] Calcium 9.4 8.5 - 10.5 mg/dL 11/21/2021 18:15 [facility] Albumin/Globulin Ratio 1.6 1.0 - 2.5 11/21/2021 18:15 [facility] Anion Gap 9 8 - 16 11/21/2021 18:15 [facility] Blood VENOUS BLOOD / Unknown Venipuncture / Unknown 11/21/2021 11:21 EST 11/21/2021 11:21 EST Clint Miramontes MD CHEMISTRY & BLOOD GA S ORDERABLES Performing Organization Address City/State/[facility] Co de Phone Number [facility] [address] [place] [address] documented in this encounter Visit Diagnoses Diagnosis 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 ([facility] Primary Anxiety Anxiety state, unspecified Vitamin D deficiency Unspecified vitamin D deficiency Mixed hyperlipidemia Chronic obstructive pulmonary disease, unspecified COPD type ([facility]) Age-related osteoporosis without current pathological fracture Senile osteoporosis Epigastric pain Abdominal pain, epigastric documented in this encounter Discontinued Medications Medication Sig Discontinue Reason Start Date End Da te LORazepam (ATIVAN) 1 mg tablet Take 1 Tablet by mouth at bedtime as needed for Anxiety. Daily Max: 1 mg Reorder 08/29/2021 11/21/2021 documented as of this encounter Care Teams Pulmonary Fellow Relationship Specialty Start Date End Date Clint Miramontes MD [address] [place] [phone] PCP - General 08/23/19 documented as of this encounter
--- OUTSIDE RECORDS SUMMARY | 2024-08-07 13:38 | XMS_ITS | Encounter Summary ---
Author Organization [facility] Address [address] [place] [address] Care Team Providers Care Call Center Coordinator Name Role Phone Clint Miramontes MD Primary Care Provider [phone] Reason for Visit * Reason Onset Date Comments Appointment Related 04/22/2022 Encounter Details Date Type Department Care Team (Late st Contact Info) Description 04/22/2022 Telephone [facility] Adult Hematology & Oncology [address] [place] [address] [place] [address] [facility] [address] [place] [address] (Fax) Appointment Related Social History Tobacco Use Types Packs/Day Years [...] Telephone Encounter - Juliet Fabian RN - 04/22/2022 0925 EDT BORIS - 8:30 next Thursday per ET - please schedule. Thanks! * Telephone Encounter - Juliet Fabian RN - 04/22/[address] ATWOOD - Please advise. * Telephone Encounter - Boris Cobos - 04/22/2022 0829 EDT Patient has not been feeling well. Went to see Dr Miramontes. Labs were done and a chest xray, he is concern that her lymphoma might be causing her symptoms. Patient has been feeling weak and has loss 10 lbs with out trying. Patient has an appointment 05/20/[address] Miramontes think she should be seen sooner. Please advise. documented in this encounter Plan of Treatment Upcoming Encounters Date Type Department Care Team (Late st Contact Info) Description 08/10/2024 16:00 EDT Appointment [facility] MRI [address] [place] [phone] 08/16/2024 14:00 EDT EMILIA [facility] OBGYN Ultrasound [address] [place] [address] 08/29/2024 14:00 EDT Office Visit [facility] OBGYN [address] [place] [address] Ness Vilchis MD 130 [facility], [address] [place] [address] 08/31/2024 16:00 EDT Office Visit [facility] Orthopedics & Sport Medicine [address], [address] [place] [address] Reema Peoples PA-C [address] [facility] [address] [place], [place] [address] 09/01/2024 9:30 EDT Office Visit [facility] Rheumatology 130 [facility], [place] [phone] Lin Grider MD 130 [facility] [address] [place] [address] 11/08/2024 14:00 EST Office Visit [facility] Adult Hematology & Oncology [address] [place] [address], [place] [phone] Luz Maria Peter NP [address] [facility] [address] [place] [address] 11/22/2024 10:15 EST Office Visit [facility] Family Medicine - [place] [address] [place], [place] [phone] Clint Miramontes MD [address] [place] [phone] documented as of this encounter Visit Diagnoses Not on filedocumented in this encounter Care Teams Call Center Coordinator Relationship Specialty Start Date End Date Clint Miramontes MD [address] [place] [phone] PCP - General 08/23/19 documented as of this encounter
--- OUTSIDE RECORDS SUMMARY | 2024-08-07 13:38 | XMS_ITS | Encounter Summary ---
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 180 Tablet 3 06/13/2021 07/17/2022 documented in this encounter Progress Notes * Clint Miramontes MD - 06/13/2021 1300 EDT Subjective: Patient ID: Mel Ramirez is an 71 y.o. female. f/u HPI Lipids - managed with lipid medications. ??No side effects. COPD - using MDI albuterol and Flovent. No chronic cough. ??No chest pains. No shortness of breath. Anxiety - sparing use of lorazapam. ??No SI/HI. ??No panic attacks. Marginal Zone lymphoma - doing well. ??No B symptoms. ?Seeing Dr. Ricci routinely. ??Right abdomen pain - on and off. CT [...] History: Diagnosis Date ??? Aneurysm (HCC-CMS) ??? Cancer ([facility]) lymphoma-marry marginal ??? Chronic obstructive pulmonary disease [...] directed every12 hours. 3 Inhaler 3 ??? ibandronate (BONIVA) 150 mg tablet 1 tab(s) orally once a month 3 Tab 3 ??? inhalational spacing device (E-Z SPACER) Inhale 1 Device as directed 2 times daily. For use with Flovent inhaler. Dx: J44.9. 1 Device 0 ??? LORazepam (ATIVAN) 1 mg tablet TAKE ONE TABLET BY MOUTH AT BEDTIME NEEDED FOR ANXIETY 30 Tablet 3 ??? lovastatin (MEVACOR) 40 mg tablet Take 2 Tabs by mouth daily. 180 Tab 3 No current facility-administered medications on file prior to visit. Allergies Allergen Reactions ??? Crestor [Rosuvastatin] Rash ??? No Known Drug Allergies ??? Other - See Comments Wasp stings- swollen local reactions ??? Pravastatin Rash Social Social History Tobacco Use ??? Smoking status: Former Smoker Packs/day: 1.00 Years: 15.00 Pack years: 15.00 Quit date: 07/03/1982 Years since quittin.9 ??? Smokeless tobacco: Never Used ??? Tobacco comment: 1981 quit Substance Use Topics ??? Alcohol use: No ??? Drug use: Yes Frequency: 5.0 times per week Types: Marijuana ROS - See HPI Lab Results Component Value Date CHOL 178 03/13/2020 CHOL 194 08/15/2019 CHOL 174 09/16/2018 HDL 51 03/13/2020 HDL 51 08/15/2019 HDL 56 09/16/2018 TRIG 115 03/13/2020 TRIG 81 08/15/2019 TRIG 149 09/16/2018 CHOLHDL 3.4 03/13/2020 CHOLHDL 3.8 08/15/2019 CHOLHDL 3.1 09/16/2018 Lab Results Component Value Date NA 140 03/06/2021 K 4.6 03/06/2021 CL 101 03/06/2021 CO2 31 03/06/2021 ; Objective: There were no vitals taken for this visit. Wt Readings from Last 3 Encounters: 05/07/21 46.3 kg (102 lb) 03/06/21 46.2 kg (101 lb 14.4 oz) 01/03/21 47.2 kg (104 lb) BP Readings from Last 3 Encounters: 05/07/21 138/66 03/06/21 130/90 01/03/21 128/74 Physical Exam Gen: Alert and oriented. No distress Cardiovascular: Normal rate, regular rhythm and normal heart sounds. No murmurs. Pulmonary/Chest: Effort normal and breath sounds normal. Neuro: no gross defects. Skin: Skin is warm. No rash. Lymph: no lymphadenopathy. Psychiatric: normal mood and affect. Assessment: Lymphoma - follow up with Oncology. ? Lipids - conitnue statin. ? Anxiety - managed with prn lorazapam. ?? Follow up with me in 4-6 mo Abd pain - I recommended CT w/ contrast. She is agreeable. Skin - derm referral. I spent a total of 30 minutes on the date of this encounter meeting with the patient and reviewing documentation/coordinating care as described in the above note. ?? Plan: There are no diagnoses linked to this encounter. No follow-ups on file. * Ekta Abbott RN - 06/13/2021 1300 EDT Venipuncture performed on RT AC. SST and Purple top collected. Tolerated procedure well. Ordered byKulwinder . One attempt. documented in this encounter Plan of Treatment Upcoming Encounters Date Type Department Care Team (Late st Contact Info) Description 08/10/2024 16:[address] [facility] MRI [address] [place], [place] [phone] 08/16/2024 14:[address] [facility] OBGYN Ultrasound [address] [place] [address] 08/29/2024 14:[address] [facility] OBGYN [address] [place] [address] Ness Vilchis MD [address] [place] [address], [address] [place] [phone] 08/31/2024 16:[address] [facility] Orthopedics & Sport Medicine [address], [address] [place], [place] [phone] Reema Peoples, PA-C 13[address] [facility] [address] [place], [place] [phone] 09/01/2024 9:[address] [facility] Rheumatology [address] [place] [phone] Lin Grider MD [address] [place] [address] [address] [place] [phone] 11/08/2024 14:[address] [facility] Adult Hematology & Oncology [address] [place] [phone] Luz Maria Peter NP [address] [place] [address], [facility] [address] [place] [phone] 11/22/2024 10:15 EST Office Visit [facility] Family Medicine - [place] [address] [place] [address] Clint Miramontes MD [address] [place] [phone] documented as of this encounter Procedures Procedure Name Priority Date/Time Associated Diagnosis Comments COMPLETE BLOOD COUNT WITH DIFFERENTIAL (AUTO) Routine 06/13/2021 13:37 EDT 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) COMPREHENSIVE METABOLIC PANEL (CMP) Routine 06/13/2021 13:37 EDT RUQ pain documented in this encounter Results * COMPLETE BLOOD COUNT WITH DIFFERENTIAL (AUTO) (06/13/2021 13:37 EDT) ABSOLUTE NEUTROPHIL COUN - [facility] 2.5 2.2 - 8.85 10e3/uL 06/13/2021 18:56 [facility] BASO # - [facility] 0.05 0.01 - 0.11 10e/uL 06/13/2021 18:56 [facility] BASO % - [facility] 1 0 - 2 % 06/13/2021 18:56 [facility] EOS # - [facility] 0.15 0.03 - 0.61 10e3/ul 06/13/2021 18:56 [facility] EOS % - [facility] 3 0 - 5 % 06/13/2021 18:56 [facility] GRAN % - [facility] 56.1 40 - 80 % 06/13/2021 18:56 [facility] HEMATOCRIT - [facility] 37.1 34.9 - 44.4 % 06/13/2021 18:56 [facility] HEMOGLOBIN - [facility] 12.4 11.6 - 15.2 g/dl 06/13/2021 18:56 [facility] IG# - [facility] 0.01 0 - 0.7 10e3/uL 06/13/2021 18:56 [facility] IG% - [facility] 0.2 0 - 0.9 % 06/13/2021 18:56 [facility] LYMPH # - [facility] 1.3 1.09 - 3.3 10e3/ul 06/13/2021 18:56 [facility] LYMPH% - [facility] 30.2 20 - 40 % 06/13/2021 18:56 [facility] MEAN CORPUSCULAR HGB - [facility] 30.2 26.7 - 33.3 pg 06/13/2021 18:56 [facility] MEAN CORPUSCULAR HGB CONC - [facility] 33.4 32.1 - 35.9 g/dL 06/13/2021 18:56 [facility] MEAN CELL VOLUME - [facility] 90.5 81 - 98 fl 06/13/2021 18:56 [facility] MONO # - [facility] 0.4 0.1 - 0.8 10e3/uL 06/13/2021 18:56 [facility] MONO% - [facility] 9.0 0 - 12 % 06/13/2021 18:56 [facility] PLATELET COUNT 212 141 - 377 10e3/ul 06/13/2021 18:56 [facility] RED BLOOD COUNT - [facility] 4.10 3.86 - 5.04 10e6/ul 06/13/2021 18:56 [facility] RED CELL DISTRI WIDTH - [facility] 12.6 <14.7 % 06/13/2021 18:56 [facility] WHITE BLOOD COUNT - [facility] 4.4 4.0 - 12.4 10e3/ul 06/13/2021 18:56 [facility] 06/13/2021 13:3 7 EDT 06/13/2021 18:20 EDT Clint Miramontes MD HEMATOLOGY & PF4 ORD ERABLES [facility] [address] [place] [address] * (ABNORMAL) COMPREHENSIVE METABOLIC PANEL (CMP) (06/13/2021 13:37 EDT) [facility] Signature Albumin % 4.3 3.4 - 4.9 g/dL 06/13/2021 18:42 [facility] ALKALINE PHOSPHATASE - [facility] 45 38 - 126 U/L 06/13/2021 18:42 [facility] BILIRUBIN TOTAL 0.7 0.2 - 1.3 mg/dL 06/13/2021 18:42 [facility] BUN - [facility] 19 10 - 26 mg/dL 06/13/2021 18:42 [facility] CALCIUM - [facility] 9.1 8.5 - 10.5 mg/dL 06/13/2021 18:42 [facility] Chloride 103 96 - 110 mmol/L 06/13/2021 18:42 [facility] CO2 Total 27 22 - 32 mEq/L 06/13/2021 18:42 [facility] CREATININE 0.65 0.52 - 1.04 mg/dL 06/13/2021 18:42 [facility] eGFR >60 06/13/2021 18:42 [facility] Comment: Chronic renal impairment is defined as GFR <60 Multiply result by 1.210 for patients. eGFR calculated using the IDMS-traceable MDRD Study Equation. ??(effective 09/04/2014) Anion Gap 11 0 - 18 06/13/2021 18:42 [facility] GLUCOSE - [facility] 111(H) 70 - 100 mg/dL 06/13/2021 18:42 [facility] Potassium 4.3 3.5 - 5.0 mEq/L 06/13/2021 18:42 [facility] Sodium 141 136 - 145 mEq/L 06/13/2021 18:42 [facility] TOTAL PROTEIN - [facility] 6.4 6.2 - 8.2 gm/dL 06/13/2021 18:42 [facility] SGOT/AST - [facility] 23 14 - 36 U/L 06/13/2021 18:42 EDT [facility] SGPT/ALT - [facility] 15 0 - 35 U/L 18:42 EDT [facility] Blood VENOUS BLOOD / Unknown 06/13/2021 13:37 EDT 06/13/2021 18:20 EDT Clint Miramontes MD CHEMISTRY & BLOOD GA S ORDERABLES [facility] [address] [place] [address] documented in this encounter Visit Diagnoses Diagnosis 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 ([facility])- Primary Mixed hyperlipidemia Chronic obstructive pulmonary disease, unspecified COPD type ([facility]) Anxiety Anxiety state, unspecified RUQ pain Abdominal pain, right upper quadrant Skin lesion Unspecified disorder of skin and subcutaneous tissue documented in this encounter Discontinued Medications Medication Sig Discontinue Reason Start Date End Da te lovastatin (MEVACOR) 40 mg tablet Take 2 Tabs by mouth daily. Reorder 10/22/2020 06/13/2021 documented as of this encounter Care Teams Employee Communications Intern Relationship Specialty Start Date End Date Clint Miramontes MD [address] [place] [phone] PCP - General 08/23/19 documented as of this encounter
--- OUTSIDE RECORDS SUMMARY | 2024-08-07 13:38 | XMS_ITS | Encounter Summary ---
Author Organization [facility] Address [address] [place] [address] Care Team Providers Care Fire Sprinkler Fitter Name Role Phone Clint Miramontes MD Primary Care Provider [phone] Encounter Details Date Type Department Care Team (Late st Contact Info) Description 06/14/2021 Results Only Imaging [facility] Radiology Results [address] [place] [address] Clint Miramontes MD [address] [place] [phone] Social History Tobacco Use Types Packs/Day [...] Contact Info) Description 08/10/2024 16:00 EDT Appointment [facility] MRI [address] [place] [address] 08/16/2024 14:00 EDT EMIL[facility] OBGYN Ultrasound [address] [place] [address] 08/29/2024 14:00 EDT Office Visit [facility] OBGYN [address] [place] [address] Ness Vilchis MD [address] [place] [address], [address] [place] [phone] 08/31/2024 16:00 EDT Office Visit [facility] Orthopedics & Sport Medicine [address], [address] [place], [place] [phone] Reema Peoples, PA-C 13[address] [facility] [address] [place], [place] [phone] 09/01/2024 9:30 EDT Office Visit [facility] Rheumatology [address] [place] [phone] Lin Grider MD [address] [place], [place] [address]B [address] [place] [address] 11/08/2024 14:00 EST Office Visit [facility] Adult Hematology & Oncology [address] [place] [address] Luz Maria Peter NP [address] [place] [address], [facility] [address] [place] [phone] 11/22/2024 10:15 EST Office Visit [facility] Family Medicine - [place] [address] [place] [address] Clint Miramontes MD [address] [place] [phone] documented as of this encounter Procedures Procedure Name Priority Date/Time Associated Diagnosis Comments MA BREAST SCREENING ELO BILATERAL 06/14/2021 9:12 EDT documented in this encounter Results * MA BREAST SCREENING ELO BILATERAL (06/14/2021 9:12 EDT) Anatomical Region Laterality Modality Breast Bilateral Mammography 06/14/2021 9:12 EDT Narrative 06/14/2021 9:12 EDT ? EXAM: MAMMOGRAM/MAMMO BILATERAL SCREEN W ??EX. D/ (1134) ? CLINICAL INFORMATION: ? Z12.31 SCREENING ? INDICATION: Z12.31 SCREENING SCREENING, 05/08/20 ? COMPARISON: ??Comparison has been made to previous images. ? TECHNIQUE: ??Full field digital whole breast 2D (C-view) and 3D CC and ? MLO views of both breasts were obtained. CAD technology was utilized. ? FINDINGS: ??The fibroglandular patterns of the breasts are normal. ? There has been no change when compared to previous mammograms and ? there is no mammographic evidence of cancer. ??The breast tissue is ? almost entirely fatty. ? FINAL ASSESSMENT: ??BILATERAL BREAST - Category 1 - Negative. Routine ? mammographic follow-up is recommended. ? These results will be communicated to your patient via a lay letter ? from Radiology. ??If any additional imaging is needed we will contact ? your patient directly. ? REPORT SIGNED IN OTHER VENDOR SYSTEM 06/14/2021 ?Reported By: French Dugan MD ? CC: ? Transcribed Date/Time: 06/14/2021 (911) ? Cloth Reeler: ? Printed Date/Time: 06/14/2021 (9357) ? PAGE 1 ? Signed Report ? Procedure Note French Dugan MD - 06/14/2021 EXAM: MAMMOGRAM/MAMMO BILATERAL SCREEN W EX. D/ (1134) CLINICAL INFORMATION: Z12.31 SCREENING INDICATION: Z12.31 SCREENING SCREENING, 05/08/20 COMPARISON: Comparison has been made to previous images. TECHNIQUE: Full field digital whole breast 2D (C-view) and 3D CCand MLO views of both breasts were obtained. CAD technology wasutilized. FINDINGS: The fibroglandular patterns of the breasts are normal. There has been no change when compared to previous mammograms and there is no mammographic evidence of cancer. The breast tissue is almost entirely fatty. FINAL ASSESSMENT: BILATERAL BREAST - Category 1 - Negative.Routine mammographic follow-up is recommended. These results will be communicated to your patient via a lay letter from Radiology. If any additional imaging is needed we willcontact your patient directly. REPORT SIGNED IN OTHER VENDOR SYSTEM 06/14/2021 Reported By: French Dugan MD CC: Transcribed Date/Time: 06/14/2021 (911) Cloth Reeler: Printed Date/Time: 06/14/2021 (3883) PAGE 1 Signed Report Clint Miramontes MD IM MAMMOGRAPHY ORDE T[facility]MAY[facility] documented in this encounter Visit Diagnoses Not on filedocumented in this encounter Care Teams Fire Sprinkler Fitter Relationship Specialty Start Date End Date Clint Miramontes MD [address] [place] [phone] PCP - General 08/23/19 documented as of this encounter
--- OUTSIDE RECORDS SUMMARY | 2024-08-07 13:38 | XMS_ITS | Encounter Summary ---
Author Organization [facility] Address [address] [place] [address] Care Team Providers Care Physician Credentialing Specialist Name Role Phone Clint Miramontes MD Primary Care Provider [phone] Reason for Visit * Reason Onset Date Comments Follow-up 03/24/2022 Encounter Details Date Type Department Care Team (Late st Contact Info) Description 03/24/2022 Telephone [facility] [place] [place] [address] [place], [place] [phone] Imelda Lazo RN Follow-up Social History Tobacco [...] encounter Miscellaneous Notes * Telephone Encounter - Johanna Naranjo MA - 03/27/2022 1024 EDT Pt scheduled * Telephone Encounter - Imelda Lazo RN - 03/26/2022 0852 EDT Left message for pt to call for scheduling. * Telephone Encounter - Imelda Lazo RN - 03/24/2022 1544 EDT Due end of (07/2022) for f/u u/s for left ovarian cyst and f/u after with jv. documented in this encounter Plan of Treatment Upcoming Encounters Date Type Department Care Team (Late st Contact Info) Description 08/10/2024 16:00 EDT Appointment [facility] MRI [address] [place] [address] 08/16/2024 14:00 EDT EMILIA [facility] OBGYN Ultrasound [address] [place], [place] [phone] 08/29/2024 14:00 EDT Office Visit [facility] OBGYN [address] [place], [place] [phone] Ness Vilchis MD 130 [facility], [address] [place] [address] 08/31/2024 16:00 EDT Office Visit [facility] Orthopedics & Sport Medicine [address], [address] [place] [address] Reema Peoples PA-C 13[address] [facility] [address] [place], [place] [address] 09/01/2024 9:30 EDT Office Visit [facility] Rheumatology 130 [facility], [place] [phone] Lin Grider MD 130 [facility] [address] [place] [address] 11/08/2024 14:00 EST Office Visit [facility] Adult Hematology & Oncology [address] [place] [address], [place] [address] Luz Maria Peter NP 130 [facility], [facility] [address] [place] [address] 11/22/2024 10:15 EST Office Visit [facility] Family Medicine - [place] [address] [place] [address] Clint Miramontes MD [address] [place] [phone] documented as of this encounter Results * US PELVIS TRANSVAGINAL (07/14/2022 10:26 EDT) Anatomical Region Laterality Modality Pelvis Ultrasound 07/14/2022 11:2 8 EDT Impressions 07/14/2022 11:28 EDT 1.) 2 adjacent left ovarian cysts, grossly not appreciably changed in size from 07/19/2021 when accounting for slight differences in measurement technique. 2.) Fibroid uterus. Narrative 07/14/2022 11:28 EDT US PELVIS TRANSVAGINAL ?? Signs and Symptoms/Comments: ??1 year f/u left ovarian cyst Comparison: 07/19/2021. Technique: Pelvic ultrasound was performed. Color Doppler imaging was also utilized. Transvaginal scanning was performed. FINDINGS: Uterus: ?? Orientation: Retroverted. Size: 5.1 cm x 2.8 cm x 4.0 cm Findings: There is a 17 x 16 x 17 mm calcified posterior subserosal fibroid. There is a 31 x 28 x 33 mm calcified anterior intramural fibroid. Cervix: Normal. Endometrium: Echotexture: Homogeneous. Thickness: 3.2 mm (Postmenopausal per patient) Ovaries: ?? Right ovary: Size: 1.5 cm x 0.8 cm x 0.9 cm. Volume : 1.9 cc. Doppler flow: Color Doppler flow is grossly present, however waveforms were not assessed. Findings: None. Left ovary: Size: 3.5 cm x 1.9 cm x 2.1 cm. Volume : 21.6 cc. Doppler flow: Color Doppler flow is grossly present, however waveforms were not assessed. Findings: The right ovary contains 2 adjacent cysts, measuring 17 x 21 x 17 mm and 13 x 13 x 9 mm.. Cul-de-sac: None. Procedure Note Reji Carroll MD - 07/14/2022 US PELVIS TRANSVAGINAL Signs and Symptoms/Comments: 1 year f/u left ovarian cyst Comparison: 07/19/2021. Technique: Pelvic ultrasound was performed. Color Doppler imaging was alsoutilized. Transvaginal scanning was performed. FINDINGS: Uterus: Orientation: Retroverted. Size: 5.1 cm x 2.8 cm x 4.0 cm Findings: There is a 17 x 16 x 17 mm calcified posterior subserosalfibroid. There is a 31 x 28 x 33 mm calcified anterior intramuralfibroid. Cervix: Normal. Endometrium: Echotexture: Homogeneous. Thickness: 3.2 mm (Postmenopausal per patient) Ovaries: Right ovary: Size: 1.5 cm x 0.8 cm x 0.9 cm. Volume : 1.9 cc. Doppler flow: Color Doppler flow is grossly present, however waveformswere not assessed. Findings: None. Left ovary: Size: 3.5 cm x 1.9 cm x 2.1 cm. Volume : 21.6 cc. Doppler flow: Color Doppler flow is grossly present, however waveformswere not assessed. Findings: The right ovary contains 2 adjacent cysts, measuring 17 x 21 x17 mm and 13 x 13 x 9 mm.. Cul-de-sac: None. IMPRESSION 1.) 2 adjacent left ovarian cysts, grossly not appreciably changed in sizefrom 07/19/2021 when accounting for slight differences in measurementtechnique. 2.) Fibroid uterus. Ness Vilchis MD IMG OB ORDERABLES documented in this encounter Visit Diagnoses Diagnosis Left ovarian cyst- Primary Other and unspecified ovarian cyst documented in this encounter Care Teams Physician Credentialing Specialist Relationship Specialty Start Date End Date Clint Miramontes MD [address] [place] [phone] PCP - General 08/23/19 documented as of this encounter
--- OUTSIDE RECORDS SUMMARY | 2024-08-07 13:38 | XMS_ITS | Encounter Summary ---
Author Organization [facility] Address [address] [place] [address] Care Team Providers Care Torque Tester Name Role Phone Clint Miramontes MD Primary Care Provider [phone] Encounter Details Date Type Department Care Team (Late st Contact Info) Description 06/13/2021 Results Only Imaging [facility] Radiology Results [address] [place], [place] [address] Lin Grider MD 130 [facility] [address] [address] [place] [address] Social History Tobacco Use Types [...] EDT Appointment [facility] MRI [address] [place] [address] 08/16/2024 14:00 EDT EMILIA [facility] OBGYN Ultrasound [address] [place] [address] 08/29/2024 14:00 EDT Office Visit [facility] OBGYN [address] [place] [address] Ness Vilchis MD [address] [place] [address], [address] [place] [phone] 08/31/2024 16:00 EDT Office Visit [facility] Orthopedics & Sport Medicine [address], [address] [place], [place] [phone] Reema Peoples PA-C 1311 [facility] [address] [place], [place] [phone] 09/01/2024 9:30 EDT Office Visit [facility] Rheumatology [address] [place] [phone] Lin Grider MD [address] [place] [address] [address] [place] [address] 11/08/2024 14:00 EST Office Visit [facility] Adult Hematology & Oncology [address] [place] [address], [place] [address] Luz Maria Peter, GABRIEL [address] [place], [place] [address]B [address] [place] [address] 11/22/2024 10:15 EST Office Visit [facility] Family Medicine - [place] [address] [place] [address] Clint Miramontes MD [address] [place] [phone] documented as of this encounter Procedures Procedure Name Priority Date/Time Associated Diagnosis Comments DXA BONE DENSITY 06/14/2021 10:5 6 EDT documented in this encounter Results * XR DEXA BONE DENSITY (06/14/2021 10:56 EDT) Anatomical Region Laterality Modality Other 06/13/2021 11:2 4 EDT Narrative 06/14/2021 10:56 EDT ? EXAM: RADIOLOGY/DEXA/BONE DENSITY-AXIAL ?? EX. D/ (1124) ? CLINICAL INFORMATION: ? M81.0 AGE-RELATED OSTEOPOROSIS WITHOUT CURRENT ? PATHOLOGICAL FRACTURE ? See attached report. ??Report also available in PACS and [employer] for ? ordering [facility] Providers. ? MANAGER BATTERY:kad ?Reported By: Bharath Patel MD ? CC: ? Transcribed Date/Time: 06/14/2021 (1056) ? Cord Splicer: JHONNY ? Printed Date/Time: 06/14/2021 (1056) ? PAGE 1 ? Signed Report ? Procedure Note Bharath Patel MD - 06/14/2021 EXAM: RADIOLOGY/DEXA/BONE DENSITY-AXIAL EX. D/ (1124) CLINICAL INFORMATION: M81.0 AGE-RELATED OSTEOPOROSIS WITHOUT CURRENT PATHOLOGICAL FRACTURE See attached report. Report also available in PACS and EPIC for ordering [facility] Providers. MANAGER BATTERY:chay Reported By: Bharath Patel MD CC: Transcribed Date/Time: 06/14/2021 (8797) Cord Splicer: JHONNY Printed Date/Time: 06/14/2021 (9253) PAGE 1 Signed Report Lin Grider MD IMG DEXA ORDERABLES documented in this encounter Visit Diagnoses Not on filedocumented in this encounter Care Teams Torque Tester Relationship Specialty Start Date End Date Clint Miramontes MD [address] [place] [phone] PCP - General 08/23/19 documented as of this encounter
--- OUTSIDE RECORDS SUMMARY | 2024-08-07 13:38 | XMS_ITS | Encounter Summary ---
Author Organization [facility] Address [address] [place] [address] Care Team Providers Care Carpenters Name Role Phone Clint Miramontes MD Primary Care Provider [phone] Encounter Details Date Type Department Care Team (Late st Contact Info) Description 09/30/[address] [facility] Rheumatology [address] [place] [phone] Olga Lu RN Social History Tobacco Use Types Packs/Day Years [...] [facility] MRI [address] [place], [place] [phone] 08/16/2024 14:[address] [facility] OBGYN Ultrasound [address] [place] [address] 08/29/2024 14:[address] [facility] OBGYN [address] [place], [place] [address] Ness Vilchis MD [address] [place] [address], [address] [place] [address] 08/31/2024 16:[address] [facility] Orthopedics & Sport Medicine [address], [address] [place] [address] Reema Peoples, PA-C [address] [facility] [address] [place], [place] [phone] 09/01/2024 9:[address] [facility] Rheumatology [address] [place] [phone] Lin Grider MD [address] [place] [address] [address] [place] [address] 11/08/2024 14:[address] [facility] Adult Hematology & Oncology [address] [place] [phone] Luz Maria Peter, GABRIEL 130 [facility], [facility] [address] [place] [address] 11/22/2024 10:[address] [facility] Family Medicine - [place] [address] [place] [address] Clint Miramontes MD [address] [place] [phone] documented as of this encounter Visit Diagnoses Not on filedocumented in this encounter Care Teams Carpenters Relationship Specialty Start Date End Date Clint Miramontes MD [address] [place] [phone] PCP - General 08/23/19 documented as of this encounter
--- OUTSIDE RECORDS SUMMARY | 2024-08-07 13:38 | XMS_ITS | Encounter Summary ---
Author Organization [facility] Address [address] [place] [address] Care Team Providers Care Landscape Architecture Professor Name Role Phone Clint Miramontes MD Primary Care Provider [phone] Reason for Visit * Reason Comments New Patient Visit see 07/19/21 u/s Encounter Details Date Type Department Care Team (Late st Contact Info) Description 10/03/2021 10:00 EST Office Visit [facility] OBGYN [address] [place], [place] [phone] Ness Vilchis MD 130 [facility], [address] [place] [address] Left ovarian cyst (Primary Dx); Intramural and subserous leiomyoma of uterus; Female genital prolapse, unspecified type Social History Tobacco Use Types [...] Sign Reading Time Taken Comments Blood Pressure 110/70 10/03/2021 1016 EST Pulse - - Temperature - - Respiratory Rate 16 10/03/2021 1016 EST Oxygen Saturation - - Inhaled Oxygen Concentration - - Weight 47.4 kg (104 lb 8 oz) 10/03/2021 1016 EST Height 145 cm (4' 9.09) 10/03/2021 1016 EST Body Mass Index 22.54 10/03/2021 1016 EST documented in this encounter [...] Progress Notes * Ness Vilchis MD - 10/03/2021 1000 EST HPI: Mel Ramirez is a 71 y.o. No obstetric history on file. who presents for evaluation of a left ovarian cyst and u/s findings. She went to see her pcp about RUQ then epigastric pain which is not bothering her today. She thinksit might be muscular. She had a CT scan and incidentally was found to have a uterine fibroid and a 2cm left adnexal cystic lesion new since 2012. A f/u u/s showed FINDINGS: Uterus/cervix: The uterus measures 5.5 x 4.4 cm. There is a 2.5 x 1.5 cm calcified shadowing intramural uterine fibroid in the right side of the uterine body. There is a 1.7 x 1.8 cm heterogeneous subserosal fibroid involving the left side of the uterine body. The endometrium where visualized is 2 mm in thickness. Right adnexa: The right ovary measures 1.5 x 1.5 cm. There is right ovarian flow. There is no right adnexal mass. Left adnexa: Left ovary measures 2.5 x 1.6 cm. Left ovary contains a septated cyst versus 2 contiguous cysts measuring up to 2.2 by 1.7 cm. Left ovarian flow is maintained. Intraperitoneal space: There is no free fluid in the cul-de-sac. IMPRESSION: 1. Myomatous uterus. 2. Left ovarian septated cyst versus 2 contiguous simple cysts. No suspicious associated findings. Follow-up as felt clinically indicated. She had a bladder suspension at [facility] by Dr. Faust within the past 10 years. She reports she was also fitted with a pessary at one point. She reports she is not willing to ever use a pessary again and felt her body reacted badly to it with discharge. She feels every now and then her bladdersuspension might be giving way only when she stacks wood and only once in a while. She currently does not have symptoms but wanted to ask about this today and if hysterectomy warranted right now. She denies bleeding. She is very active with stacking wood and other physical chores. She does 40 pelvic tilts a day. 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 Patient is postmenopausal. OB History No obstetric history on file. x 2 (largest baby 9.4 lbs) Past Medical History: Diagnosis Date ??? Aneurysm [...] left neck & node removal ??? TONSILLECTOMY Social History Tobacco Use ??? Smoking status: Former Smoker Packs/day: 1.00 Start date: 1964 Quit date: 07/03/1982 Years since quittin.2 ??? Smokeless tobacco: Never Used ??? Tobacco [...] facility-administered medications for this visit. Objective: BP 110/70 Resp 16 Ht (!) 145 cm (57.09) Wt 47.4 kg (104 lb 8 oz) BMI 22.54 kg/m?? Physical Exam General: Pleasant, alert, cooperative Neck: supple Skin: warm and dry Neuro: Alert and oriented x 3 Assessment/Plan: Mel Ramirez is a 71 y.o. No obstetric history on file. who presents with 1. Left ovarian cyst Reviewed images with Dr. Patel in radiology and he reports small simple appearance could either be2 simple follicles or a single septatation and findings are not worrisome. Patient is asymptomatic and this was incidentally found. I recommend one year f/u to reevaluate and can reevaluate sooner if symptoms arise. - US PELVIS TRANSVAGINAL; Future 2. Intramural and subserous leiomyoma of uterus Discussed benign nature of uterine fibroids with patient. 3. Female genital prolapse, unspecified type Discussed that pelvic organ prolapse can recur even after surgical correction. I offered to evaluate but she declined as it is not currently a problem. I offered option of seeing urogynecology and explained if hysterectomy were indicated at some point this would be her best option so that her pelvic floor is supported given history. Medical decision making: ??? Problems addressed today: 2 or more stable chronic illnesses ??? Review/interpretation/discussion today: Discussion of mgmt. or test interp. with another provider ??? Patient has Moderate Risk of morbidity from additional diagnostic testing or treatment (need 2/3 of the above for moderate decision making) Ness Vilchis MD documented in this encounter Plan of Treatment Upcoming Encounters Date Type Department Care Team (Late st Contact Info) Description 08/10/2024 16:00 EDT Appointment [facility] MRI [address] [place], [place] [address] 08/16/2024 14:00 EDT EMILIA [facility] OBGYN Ultrasound [address] [place] [address] 08/29/2024 14:00 EDT Office Visit [facility] OBGYN [address] [place] [phone] Ness Vilchis MD [address] [place] [address], [address] [place] [phone] 08/31/2024 16:00 EDT Office Visit [facility] Orthopedics & Sport Medicine [address], [address] [place], [place] [phone] Reema Peoples PA-C 13[address] [facility] [address] [place], [place] [phone] 09/01/2024 9:30 EDT Office Visit [facility] Rheumatology [address] [place] [phone] Lin Grider MD [address] [place] [address] [address] [place] [address] 11/08/2024 14:00 EST Office Visit [facility] Adult Hematology & Oncology [address] [place] [address], [place] [phone] Luz Maria Peter, GABRIEL [address] [place] [address], [address] [place] [address] 11/22/2024 10:15 EST Office Visit [facility] Family Medicine - [place] [address] [place] [address] Clint Miramontes MD [address] [place] [phone] documented as of this encounter Visit Diagnoses Diagnosis Left ovarian cyst- Primary Other and unspecified ovarian cyst Intramural and subserous leiomyoma of uterus Female genital prolapse, unspecified type documented in this encounter Care Teams Landscape Architecture Professor Relationship Specialty Start Date End Date Clint Miramontes MD [address] [place] [phone] PCP - General 08/23/19 documented as of this encounter
--- OUTSIDE RECORDS SUMMARY | 2024-08-07 13:38 | XMS_ITS | Encounter Summary ---
Author Organization [facility] Address [address] [place] [address] Care Team Providers Care Wood Gouger Name Role Phone Clint Miramontes MD Primary Care Provider [phone] Encounter Details Date Type Department Care Team (Late st Contact Info) Description 07/19/2021 Results Only Imaging [facility] Radiology Results [address] [place] [address] Clint Miramontes MD [address] [place] [phone] Social History Tobacco Use Types Packs/Day [...] Contact Info) Description 08/10/2024 16:00 EDT Appointment [facility] MRI [address] [place] [address] 08/16/2024 14:00 EDT EMILIA [facility] OBGYN Ultrasound [address] [place] [address] 08/29/2024 14:00 EDT Office Visit [facility] OBGYN [address] [place] [address] Ness Vilchis MD [address] [place] [address], [address] [place] [phone] 08/31/2024 16:00 EDT Office Visit [facility] Orthopedics & Sport Medicine [address], [address] [place], [place] [phone] Reema Peoples, PA-C [address] [facility] [address] [place], [place] [phone] 09/01/2024 9:30 EDT Office Visit [facility] Rheumatology [address] [place] [phone] Lin Grider MD [address] [place], [place] [address]B [address] [place] [address] 11/08/2024 14:00 EST Office Visit [facility] Adult Hematology & Oncology [address] [place] [address] Luz Maria Peter NP [address] [place] [address], [facility] [address] [place] [phone] 11/22/2024 10:15 EST Office Visit [facility] Family Medicine - [place] [address] [place] [address] Clint Miramontes MD [address] [place] [phone] documented as of this encounter Procedures Procedure Name Priority Date/Time Associated Diagnosis Comments US PELVIS TRANSVAGINAL COMPLETE 07/19/2021 17:28 EDT documented in this encounter Results * US PELVIS TRANSVAGINAL (07/19/2021 17:28 EDT) Anatomical Region Laterality Modality Pelvis Ultrasound 07/19/2021 17:2 8 EDT Narrative 07/19/2021 17:28 EDT ? EXAM: ULTRASOUND/TRANSVAGINAL - PLASTIC CARD GRADER CARDROOM W/ DO EX. D/ (1652) ? CLINICAL INFORMATION: ? N85.8 UTERINE CYST ? UTERINE MASS ? PROCEDURE INFORMATION: ? Exam: US Pelvis, Transvaginal ? Exam date and time: 07/19/2021 4:52 PM ? Age: 71 years old ? Clinical indication: Abnormal findings; Abnormal imaging test; ? Patient HX: Prior CT saw low-density left adnexal lesion; ? Additional info: N85.8 uterine cyst, uterine mass ? TECHNIQUE: ? Imaging protocol: Real-time transvaginal pelvic ultrasound with ? image documentation. Transvaginal imaging was used for better ? evaluation of the endometrium, adnexa, and/or cervix. ? Total images: 492 ? COMPARISON: ? CT ABDOMEN PELVIS WITH CONTRAST 07/05/2021 9:22 AM ? FINDINGS: ? Uterus/cervix: The uterus measures 5.5 x 4.4 cm. There is a 2.5 ? x 1.5 cm calcified shadowing intramural uterine fibroid in the ? right side of the uterine body. There is a 1.7 x 1.8 cm ? heterogeneous subserosal fibroid involving the left side of the ? uterine body. The endometrium where visualized is 2 mm in ? thickness. ? Right adnexa: The right ovary measures 1.5 x 1.5 cm. There is ? right ovarian flow. There is no right adnexal mass. ? Left adnexa: Left ovary measures 2.5 x 1.6 cm. Left ovary ? contains a septated cyst versus 2 contiguous cysts measuring up ? to 2.2 by 1.7 cm. Left ovarian flow is maintained. ? Intraperitoneal space: There is no free fluid in the cul-de-sac. ? IMPRESSION: ? 1. Myomatous uterus. ? 2. Left ovarian septated cyst versus 2 contiguous simple cysts. ? No suspicious associated findings. ??Follow-up as felt clinically ? indicated. ? REPORT SIGNED IN OTHER VENDOR SYSTEM 07/19/2021 ?Reported By: Noble Moss MD ? CC: ? Transcribed Date/Time: 07/19/2021 (9351) ? Oil Exploration Engineer: AD ? Printed Date/Time: 07/19/2021 (6396) ? PAGE 1 ? Signed Report ? Procedure Note Noble Moss MD - 07/19/2021 EXAM: ULTRASOUND/TRANSVAGINAL - PLASTIC CARD GRADER CARDROOM W/ DO EX. D/ (3232) CLINICAL INFORMATION: N85.8 UTERINE CYST UTERINE MASS PROCEDURE INFORMATION: Exam: US Pelvis, Transvaginal Exam date and time: 07/19/2021 4:52 PM Age: 71 years old Clinical indication: Abnormal findings; Abnormal imaging test; Patient HX: Prior CT saw low-density left adnexal lesion; Additional info: N85.8 uterine cyst, uterine mass TECHNIQUE: Imaging protocol: Real-time transvaginal pelvic ultrasound with image documentation. Transvaginal imaging was used for better evaluation of the endometrium, adnexa, and/or cervix. Total images: 492 COMPARISON: CT ABDOMEN PELVIS WITH CONTRAST 07/05/2021 9:22 AM FINDINGS: Uterus/cervix: The uterus measures 5.5 x [...] associated findings. Follow-up as felt clinically indicated. REPORT SIGNED IN OTHER VENDOR SYSTEM 07/19/2021 Reported By: Noble Moss MD CC: Transcribed Date/Time: 07/19/2021 (242) Oil Exploration Engineer: Printed Date/Time: 07/19/2021 (4480) PAGE 1 Signed Report Clint Miramontes MD IMG US OB ORDERABLES documented in this encounter Visit Diagnoses Not on filedocumented in this encounter Care Teams Wood Gouger Relationship Specialty Start Date End Date Clint Miramontes MD [address] [place] [phone] PCP - General 08/23/19 documented as of this encounter
--- OUTSIDE RECORDS SUMMARY | 2024-08-07 13:38 | XMS_ITS | Encounter Summary ---
Author Organization [facility] Address [address] [place] [address] Care Team Providers Care Income Auditor Name Role Phone Clint Miramontes MD Primary Care Provider [phone] Reason for Visit * Reason Comments Other Encounter Details Date Type Department Care Team (Late st Contact Info) Description 12/24/2021 [facility] Family Medicine [facility] [address] [place] [phone] Clint Miramontes MD [address] [place] [phone] Other Social History Tobacco Use Types Packs/Day [...] EDT Appointment [facility] MRI [address] [place], [place] [address] 08/16/2024 14:00 EDT EMILIA [facility] OBGYN Ultrasound [address] [place] [address] 08/29/2024 14:00 EDT Office Visit [facility] OBGYN [address] [place], [place] [phone] Ness Vilchis MD [address] [place] [address], [address] [place] [address] 08/31/2024 16:00 EDT Office Visit [facility] Orthopedics & Sport Medicine [address], [address] [place], [place] [phone] Reema Peoples PA-C [address] [facility] [address] [place], [place] [address] 09/01/2024 9:30 EDT Office Visit [facility] Rheumatology [address] [place] [address] [phone] Lin Grider MD [address] [place], [place] [address] [address] [place] [address] 11/08/2024 14:00 EST Office Visit [facility] Adult Hematology & Oncology [address] [place] [phone] Luz Maria Peter NP [address] [facility] [address] [place] [address] 11/22/2024 10:15 EST Office Visit [facility] Family Medicine - [place] [address] [place] [phone] Clint Miramontes MD [address] [place] [phone] documented as of this encounter Visit Diagnoses Not on filedocumented in this encounter Care Teams Income Auditor Relationship Specialty Start Date End Date Clint Miramontes MD [address] [place] [phone] PCP - General 08/23/19 documented as of this encounter
--- OUTSIDE RECORDS SUMMARY | 2024-08-07 13:39 | XMS_ITS | Encounter Summary ---
Author Organization [facility] Address [address] [place] [address] Care Team Providers Care Mri Manager Name Role Phone Clint Miramontes MD Primary Care Provider [phone] Reason for Visit * Reason Onset Date Comments Medications Refill 04/27/2021 Encounter Details Date Type Department Care Team (Late st Contact Info) Description 04/27/2021 Refill [facility] Family Medicine - [address] [address] Clint Miramontes MD [address] [place] [phone] Medications Refill Social History Tobacco Use Types [...] BEDTIME NEEDED FOR ANXIETY 30 Tablet 3 04/29/2021 08/28/2021 documented in this encounter Miscellaneous Notes * Telephone Encounter - Maci Farrar, RN - 04/29/2021 1311 EDT Request received from the pharmacy [facility] 03/06/21. No follow-up scheduled. Lorazepam last filled 03/28/21 #30 for 30 days Per PCP, f/u 4-6 mo Spoke with Mel. Scheduled f/u for 06/21 at 10:45 Rx loaded and sent to you in absence of Dr Miramontes documented in this encounter Plan of Treatment Upcoming Encounters Date Type Department Care Team (Late st Contact Info) Description 08/10/2024 16:00 EDT Appointment [facility] MRI [address] [place], [place] [phone] 08/16/2024 14:00 EDT EMILIA [facility] OBGYN Ultrasound [address] [place], [place] [phone] 08/29/2024 14:00 EDT Office Visit [facility] OBGYN [address] [place], [place] [phone] Ness Vilchis MD [address] [facility], [address] [place] [address] 08/31/2024 16:00 EDT Office Visit [facility] Orthopedics & Sport Medicine [address], [address] [place] [address] Reema Peoples PA-C [address] [facility] [address] [place], [place] [address] 09/01/2024 9:30 EDT Office Visit [facility] Rheumatology [address] [facility] [place] [phone] Lin Grider MD [address] [facility] [address] [place] [address] 11/08/2024 14:00 EST Office Visit [facility] Adult Hematology & Oncology [address] [place] [address], [place] [address] Luz Maria Peter NP [address] [facility] [address] [place] [address] 11/22/2024 10:15 EST Office Visit [facility] Family Medicine - [place] [address] [place] [address] Clint Miramontes MD [address] [place] [phone] documented as of this encounter Visit Diagnoses Not on filedocumented in this encounter Discontinued Medications Medication Sig Discontinue Reason Start Date End Da te LORazepam (ATIVAN) 1 mg tablet TAKE ONE TABLET BY MOUTH AT BEDTIME NEEDED FOR ANXIETY, DAILY MAX=1MG 04/23/2021 04/29/2021 documented as of this encounter Care Teams Mri Manager Relationship Specialty Start Date End Date Clint Miramontes MD [address] [place] [phone] PCP - General 08/23/19 documented as of this encounter
--- OUTSIDE RECORDS SUMMARY | 2024-08-07 13:39 | XMS_ITS | Encounter Summary ---
Author Organization [facility] Address [address] [place] [address] Care Team Providers Care Entry Examiner Name Role Phone Clint Miramontes MD Primary Care Provider [phone] Reason for Visit * Reason Comments Rib Pain Right side Other fingernail concern Shortness of Breath Encounter Details Date Type Department Care Team (Late st Contact Info) Description 03/06/2021 13:00 EDT Office Visit [facility] [place] [facility] [place] - [place] [address] [place] [address] Anish Álvarez, BARNEY-C [address] [place] [phone] Koilonychia (Primary Dx); RUQ pain; Chronic obstructive pulmonary disease, unspecified COPD type ([facility]) Social History Tobacco Use Types Packs/Day Years [...] Sign Reading Time Taken Comments Blood Pressure 130/90 03/06/2021 1307 EDT Pulse 78 03/06/2021 1307 EDT Temperature 36.7 ??C (98.1 ??F) 03/06/2021 1307 EDT Respiratory Rate - - Oxygen Saturation 96% 03/06/2021 1307 EDT oxi meter Inhaled Oxygen Concentration - - Weight 46.2 kg (101 lb 14.4 oz) 03/06/2021 1307 EDT Height - - Body Mass Index 21.67 01/03/2021 1606 EST documented in this encounter Functional Status [...] as of this encounter Progress Notes * Anish Álvarez PA-C - 03/06/2021 1300 EDT Subjective: Patient ID: Mel Ramirez is an 70 y.o. female. Chief Complaint Patient presents with ??? Rib Pain Right side ??? Other fingernail concern ??? Shortness of Breath This patient is a 70-year-old female with history of COPD, osteoporosis, lymphoma, vitamin D deficiency, cerebral aneurysm who presents today to discuss the followin. Spooning of fingernails. States this is involving all the nails, with some splitting on the lateral portions as well. No significant discoloration, clubbing has been appreciated. No rashes, lesions, swelling, deformity, injury or trauma. 2. Right upper quadrant pain. Has been there over the last 2 to 3 weeks, states that she typically does not notice it when she is at work but notices more when she is at home. No specific palliative or provoking factors. She describes it as dull, rope like and feeling like something is caught. The pain does not radiate, severity is 2 out of 10, timing is intermittent. Occasionally feels like she has abdominal distention. Does admit to shortness of breath but states this is only exertional and consistent with her COPD. Denies any trauma or injury, edema, erythema, bruising, rashes or lesions, nausea or vomiting, abdominal pain, flank pain, urinary symptoms. Patient Active Problem List Diagnosis ??? Cerebral [...] Diagnosis Date ??? Aneurysm (HCC-CMS) ??? 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 Chronic obstructive pulmonary disease [...] Take 2,000 Units by mouth daily. ??? DIAZepam (VALIUM) 5 mg tablet 1 tab(s) orally during travel as needed ??? fluticasone propionate (FLOVENT HFA) 110 mcg/actuation [...] BY MOUTH AT BEDTIME NEEDED FOR ANXIETY, DAILYMAX=1MG 30 Tab 3 ??? lovastatin (MEVACOR) 40 mg tablet [...] years: 15.00 Quit date: 07/03/1982 Years since quittin.7 ??? Smokeless tobacco: Never Used ??? Tobacco comment: 1981 quit Substance Use Topics ??? Alcohol use: No ??? Drug use: Yes Frequency: 5.0 times per week Types: Marijuana ROS - See HPI Objective: BP 130/90 (BP Cuff Location: Left arm, BP Patient Position: Sitting, BP Cuff Sizes: Adult, regular) Pulse 78 Temp 36.7 ??C (98.1 ??F) (Oral) Wt 46.2 kg (101 lb 14.4 oz) SpO2 96% Comment: oximeter BMI 21.67 kg/m?? GENERAL: alert, comfortable, NAD, non-toxic appearing SKIN: Spooning of all fingernails with some splitting on lateal edges; no rashes/lesions on examined skin; no ecchymosis/vericosities noted on abdomen CV: regular rate and rhythm, no murmurs/rubs/gallops noted PULM: unlabored breathing, clear to auscultation bilaterally ABDOMEN: no distention or other abnormalities on inspection; bowel sounds present in all 4 quadrants; mild tenderness to palpation of right upper quadrant/RLQ; no masses/organomegaly appreciated; negative Amor's Sign/Heel Tap/Psoas Sign/Obturator/Rovsing's/Rebound Tenderness; negative CVA tenderness bilaterally Assessment: Plan: Mel was seen today for rib pain, other and shortness of breath. Diagnoses and all orders for this visit: Koilonychia - COMPLETE BLOOD COUNT AND DIFFERENTIAL - IRON - FERRITIN Patient does not have history of iron deficiency anemia but this is the most likely cause of this issue. Therefore, ordered CBC, iron, ferritin to look into this further. No clubbing to indicate thisis related to COPD. Will notify patient of results as soon as possible. RUQ pain - COMPREHENSIVE METABOLIC PANEL (CMP) - LIPASE - US ABDOMEN LIMITED; Future Exam shows mild tenderness to palpation in the right upper quadrant and right lower quadrant, making oblique strain very possible. Patient also has pain to deep palpation in the right upper quadrant,so possibly this is involving liver, gallbladder, large intestine or even small intestine. To help look into this further, ordered lipase, CMP, right upper quadrant ultrasound, especially given her history of the lymphoma. Will notify patient of results as soon as possible, she will go to the emergency department with severe pain, fevers, vomiting, bloody stool. No follow-ups on file. * Cori Camargo RN - 03/06/2021 1300 EDT Mel is here for right sided rib pain, and concerns with fingernails. Rib pain at visit: 3 out of 10 Rib pain onset: January 2021 Fingernail concern onset: 2019 Fingernail description: Thick and pulling away from nail bed, some cupping especially in thumbs. Concerns: 1) patient feels movable tender rope like under right breast to mid ribs. 2) SOB 3) white bumps around mouth 4) fingernails * Cori Camargo RN - 03/06/2021 1300 EDT Venipuncture performed on LT AC using butterfly, STT and purple top collected, tolerated well, ordered by Anish Álvarez MD, one attempt, Band-aid applied documented in this encounter Plan of Treatment Upcoming Encounters Date Type Department Care Team (Late st Contact Info) Description 08/10/2024 16:00 EDT Appointment [facility] MRI [address] [place] [address] 08/16/2024 14:00 EDT EMILIA [facility] OBGYN Ultrasound [address] [place] [address] 08/29/2024 14:00 EDT Office Visit [facility] OBGYN [address] [place] [address] Ness Vilchis MD [address] [facility], [address] [place] [address] 08/31/2024 16:00 EDT Office Visit [facility] Orthopedics & Sport Medicine [address], [address] [place], [place] [phone] Reema Peoples PA-C [address] [facility] [address] [place], [place] [phone] 09/01/2024 9:30 EDT Office Visit [facility] Rheumatology [address] [place] [phone] Lin Grider MD 130 [facility] [address] [place] [address] 11/08/2024 14:00 EST Office Visit [facility] Adult Hematology & Oncology [address] [place] [address], [place] [phone] Luz Maria Peter NP 130 [facility] [address] [place] [address] 11/22/2024 10:15 EST Office Visit [facility] Family Medicine - [place] [address] [place] [address] Clint Miramontes MD [address] [place] [phone] Scheduled Orders Name Type Priority Associated Diagnoses Orde r Schedule COMPLETE BLOOD COUNT AND DIFFERENTIAL Lab Routine Koilonychia Ordered: 03/06/2021 LIPASE Lab Routine RUQ pain Ordered: 03/06/2021 documented as of this encounter Procedures Procedure Name Priority Date/Time Associated Diagnosis Comments [place] [facility] [place] Routine 03/06/2021 13:24 EDT Koilonychia COMPLETE BLOOD COUNT WITH DIFFERENTIAL (AUTO) Routine 03/06/2021 13:24 EDT Koilonychia IRON Routine 03/06/2021 13:24 EDT Koilonychia FERRITIN Routine 03/06/2021 13:24 EDT Koilonychia COMPREHENSIVE METABOLIC PANEL (CMP) Routine 03/06/2021 13:24 EDT RUQ pain documented in this encounter Results * COMPLETE BLOOD COUNT WITH DIFFERENTIAL (AUTO) (03/06/2021 13:24 EDT) ABSOLUTE NEUTROPHIL COUN - [facility] 3.7 2.2 - 8.85 10e3/uL 03/07/2021 3:57 [facility] BASO # - [facility] 0.07 0.01 - 0.11 10e/uL 03/07/2021 3:57 [facility] BASO % - [facility] 1 0 - 2 % 03/07/2021 3:57 [facility] EOS # - [facility] 0.18 0.03 - 0.61 10e3/ul 03/07/2021 3:57 [facility] EOS % - [facility] 3 0 - 5 % 03/07/2021 3:57 [facility] GRAN % - [facility] 57.2 40 - 80 % 03/07/2021 3:57 [facility] HEMATOCRIT - [facility] 40.1 34.9 - 44.4 % 03/07/2021 3:57 [facility] HEMOGLOBIN - [facility] 12.9 11.6 - 15.2 g/dl 03/07/2021 3:57 [facility] IG# - [facility] 0.02 0 - 0.7 10e3/uL 03/07/2021 3:57 [facility] IG% - [facility] 0.3 0 - 0.9 % 03/07/2021 3:57 [facility] LYMPH # - [facility] 2.0 1.09 - 3.3 10e3/ul 03/07/2021 3:57 EDT [facility] LYMPH% - [facility] [place] 30.7 20 - 40 % 03/07[facility]21 [facility]PUSC[facility] HGB - [facility] [place] 29.3 26.7 - 33.3 pg 03/07/2021 3[facility] CORPUSCULAR HGB CONC - [facility] [place] 32.2 32.1 - 35.9 g/dL 03/07/2021 3:57 EDT [facility] MEAN CELL VOLUME - [facility] [place] 91.1 81 - 98 fl 03/07/2021 3[facility] # - [facility] [place] 0.5 0.1 - 0.8 10e3/uL 03/07/2021 3:57 [facility]% [place] [facility] [place] 7.9 0 - 12 % 03/07/2021 3:57 EDT [facility] PLATELET COUNT 216 141 - 377 10e3/ul 03/07/2021 [facility] RED BLO[facility] - [facility] [place] 4.40 3.86 - 5.04 10e6/ul 03/07/2021 3:57 [facility] CELL DISTRI WIDTH - [facility] [place] 12.2 <14.7 % 03/07/2021 3:57 [facility] WHITE BLOOD COUNT - [facility] [place] 6.5 4.0 - 12.4 10e3/ul 03/07/2021 3:57 [facility] 03/06/2021 13:2 4 EDT 03/06/2021 18:17 EDT Anish Álvarez PA-C HEMATOLOGY & PF4 ORD ERABLES [facility] [address] [place] [address] * LIPASE - [facility] [place] (03/06/2021 13:24 EDT) LIPASE SERPL-CCNC - [facility] [place] 127 <251 U/L 03/06/2021 21:13 [facility] 03/06/2021 13:2 4 EDT 03/06/2021 18:17 EDT Anish Álvarez PA-C CHEMISTRY & BLOOD GA S ORDERABLES [facility] [address] [place] [address] * COMPREHENSIVE METABOLIC PANEL (CMP) (03/06/2021 13:24 EDT) Pathologist [facility] Albumin % 4.6 3.4 - 4.9 g/dL 03/06/2021 21:13 [facility] ALKALINE PHOSPHATASE - [facility] [place] 53 38 - 126 U/L 03/06/2021 21:13 [facility] BILIRUBIN TOTAL 0.6 0.2 - 1.3 mg/dL 03/06/2021 21:13 [facility] BUN - [facility] [place] 16 10 - 26 mg/dL 03/06/2021 21:13 [facility] CALCIUM - [facility] [place] 10.3 8.5 - 10.5 mg/dL 03/06/2021 21:13 [facility] Chloride 101 96 - 110 mmol/L 03/06/2021 21:13 [facility] CO2 Total 31 22 - 32 mEq/L 03/06/2021 21:13 [facility] CREATININE 0.66 0.52 - 1.04 mg/dL 03/06/2021 21:13 [facility] eGFR >60 03/06/2021 21:13 [facility] Comment: Chronic renal impairment is defined as GFR <60 Multiply result by 1.210 for patients. eGFR calculated using the IDMS-traceable MDRD Study Equation. ??(effective 09/04/2014) Anion Gap 8 0 - 18 03/06/2021 21:13 [facility] GLUCOSE - [facility] [place] 87 70 - 100 mg/dL 03/06/2021 21:13 [facility] Potassium 4.6 3.5 - 5.0 mEq/L 03/06/2021 21:13 EDT [facility] Sodium 140 136 - 145 mEq/L 03/06/2021 21:13 EDT [facility] TOTAL PROTEIN - [facility] [place] 7.2 6.2 - 8.2 gm/dL 03/06/2021 [facility]AST [place] [facility] [place] 25 14 - 36 U/L 03/06/2021 21:13 EDT [facility] SGPT/ALT - [facility] [place] 18 0 - 35 U/L 21:13 EDT [facility] Blood VENOUS BLOOD / Unknown 03/06/2021 13:24 EDT 03/06/2021 18:17 EDT Anish Álvarez PA-C CHEMISTRY & BLOOD GA S ORDERABLES Performing Organization Address City/[facility]/ZIP Co de Phone Number [facility] [address] [place] [address] * FERRITIN (03/06/2021 13:24 EDT) [facility] FERRITIN - [facility] [place] 50 11.1 - 264.0 ng/mL 03/06/2021 21:55 EDT [facility] Comment: The results of this assay can be falsely lowered due to the consumption of Biotin. Blood VENOUS BLOOD / Unknown 03/06/2021 13:24 EDT 03/06/2021 18:17 EDT Anish Álvarez PA-C CHEMISTRY & BLOOD GA S ORDERABLES [facility] [address] [place] [address] * IRON (03/06/2021 13:24 EDT) [facility] 80 37 - 170 ug/dL 03/06/2021 21:13 EDT [facility] Blood VENOUS BLOOD / Unknown 03/06/2021 13:24 EDT 03/06/2021 18:17 EDT Anish Álvarez PA-C CHEMISTRY & BLOOD GA S ORDERABLES [facility] [address] [place] [address] documented in this encounter Visit Diagnoses Diagnosis Koilonychia- Primary Other specified disease of nail RUQ pain Abdominal pain, right upper quadrant Chronic obstructive pulmonary disease, unspecified COPD type (HCC-CMS) documented in this encounter Care Teams Entry Examiner Relationship Specialty Start Date End Date Clint Miramontes MD [address] [place] [phone] PCP - General 08/23/19 documented as of this encounter
--- OUTSIDE RECORDS SUMMARY | 2024-08-07 13:39 | XMS_ITS | Encounter Summary ---
Author Organization [facility] Address [address] [place] [address] Care Team Providers Care Facility Sales And Admin Name Role Phone Clint Miramontes MD Primary Care Provider [phone] Encounter Details Date Type Department Care Team (Latest Contact Info) Description 04/04/2020 Travel Social History Tobacco Use Types Packs/Day Years Used Date Smoking Tobacco: Former Cigarettes 1 15 0 07/03/1967 - 07/03/1982 Smokeless Tobacco: Never Comments:1981 quit Alcohol Use Standard Drinks/Week Comments No 0 (1 standard drink = 0.6 oz pur e alcohol) Sex and Gender Information Value Date Recorded Sex Assigned at Not on file Gender Identity Female 03/09/2020 13:07 EDT Sexual Orientation Not on file COVID-19 Exposure Response Date Recorded In the last month, have you been in contact with someone who was confirmed or suspected to have Coronavirus / COVID-19? No / Unsure 04/04/2020 14:31 EDT documented as of this encounter Functional Status [...] Contact Info) Description 08/10/2024 16:00 EDT Appointment [facility] MRI [address] [facility], [place] [phone] 08/16/2024 14:00 EDT EMILIA [facility] OBGYN Ultrasound [address] [place] [address] 08/29/2024 14:00 EDT Office Visit [facility] OBGYN [address] [place], [place] [phone] Ness Vilchis MD [address] [place] [address], [address] [place] [phone] 08/31/2024 16:00 EDT Office Visit [facility] Orthopedics & Sport Medicine [address], [address] [place] [address] Reema Peoples PA-C [address] [facility] [address] [place], [place] [phone] 09/01/2024 9:30 EDT Office Visit [facility] Rheumatology [address] [place] [phone] Lin Grider MD [address] [place], [place] [address] [address] [place] [address] 11/08/2024 14:00 EST Office Visit [facility] Adult Hematology & Oncology [address] [place] [phone] Luz Maria Peter NP [address] [facility], [facility] [address] [place] [address] 11/22/2024 10:15 EST Office Visit [facility] Family Medicine - [place] [address] [place] [address] Clint Miramontes MD [address] [place] [phone] documented as of this encounter Visit Diagnoses Not on filedocumented in this encounter Care Teams Facility Sales And Admin Relationship Specialty Start Date End Date Clint Miramontes MD [address] [place] [address] PCP - General 08/23/19 documented as of this encounter
--- OUTSIDE RECORDS SUMMARY | 2024-08-07 13:39 | XMS_ITS | Encounter Summary ---
Author Organization [facility] Address [address] [place] [address] Care Team Providers Care Cable Driller Name Role Phone Clint Miramontes MD Primary Care Provider Encounter Details Date Type Department Care Team (Late st Contact Info) Description 09/30/2019 Abstract [facility] Adult Primary Care [address] [address] Ambulatory, [employer] Photograph Social History Tobacco Use Types Packs/Day Years [...] 08/10/2024 16:00 EDT Appointment [facility] MRI [address] [facility], [place] [address] 08/16/2024 14:00 EDT EMILIA [facility] OBGYN Ultrasound [address] [place] [address] 08/29/2024 14:00 EDT Office Visit [facility] OBGYN [address] [place], [place] [phone] Ness Vilchis MD [address] [place], [place] [address], [address] [place] [phone] 08/31/2024 16:00 EDT Office Visit [facility] Orthopedics & Sport Medicine [address], [address] [place] [address] Reema Peoples, PA-C [address] [facility] [address] [place], [place] [phone] 09/01/2024 9:30 EDT Office Visit [facility] Rheumatology [address] [place] [phone] Lin Grider MD [address] [place], [place] [address] [address] [place] [address] 11/08/2024 14:00 EST Office Visit [facility] Adult Hematology & Oncology [address] [place] [phone] Luz Maria Peter NP [address] [facility] [address] [place] [address] 11/22/2024 10:15 EST Office Visit [facility] Family Medicine - [place] [address] [place] [address] Clint Miramontes MD [address] [place] [phone] documented as of this encounter Visit Diagnoses Not on filedocumented in this encounter Care Teams Cable Driller Relationship Specialty Start Date End Date Clint Miramontes MD [address] [place] [address] PCP - General 08/23/19 documented as of this encounter
--- OUTSIDE RECORDS SUMMARY | 2024-08-07 13:39 | XMS_ITS | Encounter Summary ---
Author Organization [facility] Address [address] [place] [address] Care Team Providers Care Oyster Floater Name Role Phone Clint Miramontes MD Primary Care Provider [phone] Encounter Details Date Type Department Care Team (Late st Contact Info) Description 06/21/2020 Orders Only [facility] [place] [facility] [address] [place] [address] Cht Panel Coordinator, [facility] Family Social History Tobacco Use Types Packs/Day Years [...] [facility] MRI [address] [place], [place] [phone] 08/16/2024 14:00 EDT EMILIA [facility] OBGYN Ultrasound [address] [place] [address] 08/29/2024 14:00 EDT Office Visit [facility] OBGYN [address] [place] [address] Ness Vilchis MD [address] [place] [address], [address] [place] [address] 08/31/2024 16:00 EDT Office Visit [facility] Orthopedics & Sport Medicine [address], [address] [place] [address] Reema Peoples PA-C [address] [facility] [address] [place], [place] [phone] 09/01/2024 9:30 EDT Office Visit [facility] Rheumatology [address] [place] [phone] Lin Grider MD [address] [place] [address] [address] [place] [address] 11/08/2024 14:00 EST Office Visit [facility] Adult Hematology & Oncology [address] [place] [phone] Luz Maria Peter NP [address] [facility] [address] [place] [address] 11/22/2024 10:15 EST Office Visit [facility] Family Medicine - [place] [address] [place], [place] [phone] Clint Miramontes MD [address] [place] [phone] documented as of this encounter Procedures Procedure Name Priority Date/Time Associated Diagnosis Comments HEPATITIS C AB W REFLEX TO HCV RNA BY PCR Routine 2010 documented in this encounter Results * HEPATITIS C AB W REFLEX TO HCV RNA BY PCR (2010) Hepatitis C Ab negative Blood VENOUS BLOOD / Unknown 2010 Historical Provider CHEMISTRY & BLOOD GAS ORDERABLES documented in this encounter Visit Diagnoses Not on filedocumented in this encounter Care Teams Oyster Floater Relationship Specialty Start Date End Date Clnit Miramontes MD [address] [place] [phone] PCP - General 08/23/19 documented as of this encounter
--- OUTSIDE RECORDS SUMMARY | 2024-08-07 13:39 | XMS_ITS | Encounter Summary ---
Author Organization [facility] Address [address] [place] [address] Care Team Providers Care Utility Worker Name Role Phone Clint Miramontes MD Primary Care Provider [phone] Reason for Visit * Reason Comments Follow-up Encounter Details Date Type Department Care Team (Late st Contact Info) Description 10/06/2019 16:00 EST Office Visit [facility] Adult Hematology & Oncology [address] [place] [address] [place] [address] [facility] [address] [place] [phone] (Fax) Lymphoma of lymph nodes of head [...] Sign Reading Time Taken Comments Blood Pressure 120/72 10/06/2019 1602 EST Pulse 98 10/06/2019 1602 EST Temperature - - Respiratory Rate - - Oxygen Saturation 97% 10/06/2019 1602 EST Inhaled Oxygen Concentration - - Weight 48.5 kg (107 lb) 10/06/2019 1602 EST Height - - Body Mass Index 21.61 11/05/2016 0938 EST documented in this encounter Functional Status [...] Progress Notes * Sheyla Atwood MD - 10/06/2019 1600 EST Patient Active Problem List Diagnosis ??? 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 Clinical stage IIIa disease with numerous small lymph nodes above and below the diaphragm. No treatment at this time. Subjective Interim History: Patient returns for follow-up. She is doing generally well today with no complaints. Denies any fevers, night sweats or unintentional weight loss. Denies feeling any abnormal lumps. Review of Systems: Review of Systems Constitutional: [...] Packs/day: 1.00 Years: 15.00 Pack years: 15.00 Last attempt to quit: 07/03/1982 Years since quittin.2 ??? Smokeless tobacco: Never Used ??? Tobacco comment: 1981 quit Substance Use Topics ??? Alcohol use: No ??? Drug use: Yes Frequency: 5.0 times per week Types: Marijuana Current Outpatient Medications Medication Sig Dispense Refill Last Dose ??? albuterol sulfate 90 mcg/actuation aero powdr breath act w/sensor 2 puff(s) inhaled every 4 hours as needed Taking ??? aspirin 325 mg tablet Take 1 Tab by mouth daily. Taking ??? cholecalciferol, Vitamin D3, (VITAMIN D) 1,000 unit tablet Take 1,000 Units by mouth daily. Taking ??? DIAZepam (VALIUM) 5 mg tablet 1 tab(s) orally during travel as needed Taking ??? fluticasone propionate (FLOVENT HFA) 110 mcg/actuation inhaler 2 puff(s) inhaled 2 times a day Taking ??? ibandronate (BONIVA) 150 mg tablet 1 tab(s) orally once a month Taking ??? LORazepam (ATIVAN) 1 mg tablet Take 1 Tab by mouth at bedtime for 30 days. Daily Max: 1 mg 30 Tab 3 Taking ??? lovastatin (MEVACOR) 40 mg tablet 2 tab(s) orally once a day 180 Tab 3 Taking No current facility-administered medications for this visit. Vitals: 10/06/19 1602 BP: 120/72 Pulse: 98 SpO2: 97% Weight: 48.5 kg (107 lb) Wt Readings from Last 3 Encounters: 10/06/19 48.5 kg (107 lb) 06/08/14 49 kg (108 lb) 06/02/13 48.5 kg (107 lb) Physical Exam: Physical Exam Constitutional: She is oriented to person, place, and time. HENT: Head: Normocephalic and atraumatic. Eyes: EOM are normal. Neck: Normal range of motion. Neck supple. Cardiovascular: Regular rhythm. Pulmonary/Chest: Effort normal and breath sounds normal. Abdominal: Soft. There is no tenderness. Lymphadenopathy: She has no cervical adenopathy. She has no axillary adenopathy. Right: No inguinal and no supraclavicular adenopathy present. Left: No inguinal and no supraclavicular adenopathy present. Neurological: She is alert and oriented to person, place, and time. Skin: Skin is warm and dry. She is not diaphoretic. Psychiatric: She has a normal mood and affect. Data Review: Labs: Results for orders placed or performed in visit on 08/15/19 COMPLETE BLOOD COUNT WITH DIFFERENTIAL (AUTO) Result Value Ref Range ABSOLUTE NEUTROPHIL COUN - [facility] 2.6 2.2 - 8.85 10e3/uL BASO # - [facility] 0.05 0.01 - 0.11 10e/uL BASO % - [facility] 1 0 - 2 % EOS # - [facility] 0.17 0.03 - 0.61 10e3/ul EOS % - [facility] 4 0 - 5 % GRAN % - [facility] 55.2 40 - 80 % HEMATOCRIT - [facility] 40.5 34.9 - 44.4 % HEMOGLOBIN - [facility] 13.2 11.6 - 15.2 g/dl IG# - [facility] 0.01 0 - 0.7 10e3/uL IG% - [facility] 0.2 0 - 0.9 % LYMPH # - [facility] 1.5 1.09 - 3.3 10e3/ul LYMPH% - [facility] 31.4 20 - 40 % MEAN CORPUSCULAR HGB - [facility] 29.6 26.7 - 33.3 pg MEAN CORPUSCULAR HGB CONC - [facility] 32.6 32.1 - 35.9 g/dL MEAN CELL VOLUME - [facility] 90.8 81 - 98 fl MONO # - [facility] 0.4 0.1 - 0.8 10e3/uL MONO% - [facility] 8.4 0 - 12 % PLATELET COUNT - [facility] 221 141 - 377 10e3/ul RED BLOOD COUNT - [facility] 4.46 3.86 - 5.04 10e3/ul RED CELL DISTRI WIDTH - [facility] 12.6 <14.7 % WHITE BLOOD COUNT - [facility] 4.7 4.0 - 12.4 10e3/ul Assessment & Plan Marginal zone lymphoma. Clinically she is doing well with no evidence of B symptoms or bulky lymphadenopathy. Blood counts reviewed and wnl. Will continue to follow her on observation. Plan: 1. Return for follow-up in 6 months. Sheyla Atwood MD Hematology/Oncology [facility] documented in this encounter Plan of Treatment Upcoming Encounters Date Type Department Care Team (Late st Contact Info) Description 08/10/2024 16:00 EDT Appointment [facility] [address] [place] [address] 08/16/2024 14:00 EDT EMILIA [facility] OBGYN Ultrasound [address] [place], [place] [phone] 08/29/2024 14:00 EDT Office Visit [facility] OBGYN 130 [facility] [place] [address] Ness Vilchis MD 130 [facility], [address] [place] [address] 08/31/2024 16:00 EDT Office Visit [facility] Orthopedics & Sport Medicine [address], [address] [place] [address] Reema Peoples PA-C 1311 [facility] [address] [place], [place] [phone] 09/01/2024 9:30 EDT Office Visit [facility] Rheumatology [address] [place], [place] [phone] Lin Grider MD [address] [place] [address] [address] [place] [address] 11/08/2024 14:00 EST Office Visit [facility] Adult Hematology & Oncology [address] [place] [phone] Luz Maria Peter, GABRIEL 130 [facility] [address] [place] [address] 11/22/2024 10:15 EST Office Visit [facility] Family Medicine - [place] [address] [place], [place] [phone] Clint Miramontes MD [address] [place] [phone] documented as of this encounter Visit Diagnoses Diagnosis 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)- Primary documented in this encounter Care Teams Utility Worker Relationship Specialty Start Date End Date Clint Miramontes MD [address] [place] [phone] PCP - General 08/23/19 documented as of this encounter
--- OUTSIDE RECORDS SUMMARY | 2024-08-07 13:39 | XMS_ITS | Encounter Summary ---
Author Organization [facility] Address [address] [place] [address] Care Team Providers Care Photogrammetric Surveyor Name Role Phone Clint Miramontes MD Primary Care Provider [phone] Reason for Visit * Reason Onset Date Comments Medications Refill 04/24/2020 Encounter Details Date Type Department Care Team (Late st Contact Info) Description 04/24/2020 Refill [facility] - [address] [address] Ekta Hemphill, ATTILA Medications Refill Social History Tobacco Use Types [...] tablet Take 1 Tab by mouth at bedtime. Daily Max: 1 mg 30 Tab 3 04/26/2020 08/07/2020 documented in this encounter Miscellaneous Notes * Telephone Encounter - Ekta Hemphill, RN - 04/24/2020 1646 EDT Mel WILLIAM on nurse line requesting refill of ativan. seven 03/12/20 Rx last filled 04/02 #30, 30 days Ativan loaded to send to pharmacy documented in this encounter Plan of Treatment Upcoming Encounters Date Type Department Care Team (Late st Contact Info) Description 08/10/2024 16:00 EDT Appointment [facility] MRI [address] [place], [place] [phone] 08/16/2024 14:00 EDT EMILIA [facility] OBGYN Ultrasound [address] [place] [phone] 08/29/2024 14:00 EDT Office Visit Health system OBGYN [address] [place] [phone] Ness Vilchis MD 130 [facility], [address] [place] [address] 08/31/2024 16:00 EDT Office Visit [facility] system Orthopedics & Sport Medicine [address], [address] [place], [place] [phone] Reema Peoples PA-C 1311 [facility] [address] [place], [place] [phone] 09/01/2024 9:30 EDT Office Visit Health system Rheumatology [address] [place], [place] [address] Lin Grider MD 130 [facility] [address] [place] [address] 11/08/2024 14:00 EST Office Visit Health system Adult Hematology & Oncology [address] [place] [address] Luz Maria Peter NP 130 [facility], [facility] [address] [place] [address] 11/22/2024 10:15 EST Office Visit [facility] system Family Medicine - [address] [address] Clint Miramontes MD [address] [place] [phone] documented as of this encounter Visit Diagnoses Not on filedocumented in this encounter Discontinued Medications Medication Sig Discontinue Reason Start Date End Da te LORazepam (ATIVAN) 1 mg tablet Take 1 Tab by mouth at bedtime. Daily Max: 1 mg Reorder 01/20/2020 04/24/2020 documented as of this encounter Care Teams Photogrammetric Surveyor Relationship Specialty Start Date End Date Clint Miramontes MD [address] [place] [phone] PCP - General 08/23/19 documented as of this encounter
--- OUTSIDE RECORDS SUMMARY | 2024-08-07 13:39 | XMS_ITS | Encounter Summary ---
Author Organization [facility] Address [address] [place] [address] Care Team Providers Care Driver Utility Worker Name Role Phone Clint Miramontes MD Primary Care Provider [phone] Reason for Visit * Reason Comments Other Encounter Details Date Type Department Care Team (Late st Contact Info) Description 12/25/2020 Refill [facility] Family Medicine [facility] [address] [place] [phone] Clint Miramontes MD [address] [place] [phone] Other Social History Tobacco Use Types Packs/Day [...] AT BEDTIME NEEDED FOR ANXIETY, DAILY MAX=1MG 30 Tab 3 12/25/2020 04/23/2021 documented in this encounter Miscellaneous Notes * Telephone Encounter - Ekta Hemphill, ATTILA - 12/25/2020 0710 EST Request received from pharmacy seven 08/28/20, had follow-up scheduled with you on 01/03 Ativan last filled 12/19 #30 tabs Rx loaded to send to pharmacy documented in this encounter Plan of Treatment Upcoming Encounters Date Type Department Care Team (Late st Contact Info) Description 08/10/2024 16:00 EDT Appointment [facility] MRI [address] [place] [address] 08/16/2024 14:00 EDT EMILIA [facility] OBGYN Ultrasound [address] [place], [place] [address] 08/29/2024 14:00 EDT Office Visit [facility] OBGYN [address] [place], [place] [address] Ness Vilchis MD 130 [facility], [address] [place] [phone] 08/31/2024 16:00 EDT Office Visit [facility] Orthopedics & Sport Medicine [address], [address] [place], [place] [phone] Reema Peoples PA-C 1311 [facility] [address] [place], [place] [address] 09/01/2024 9:30 EDT Office Visit [facility] Rheumatology [address] [place], [place] 389[address] Lin Grider MD 130 [facility] [address] [place] [address] 11/08/2024 14:00 EST Office Visit [facility] Adult Hematology & Oncology [facility] [place] [address] Luz Maria Peter NP 130 [facility], [facility] [address] [place] [address] 11/22/2024 10:15 EST Office Visit [facility] Family Medicine - [address] [phone] Clint Miramontes MD [address] [place] [phone] documented as of this encounter Visit Diagnoses Not on filedocumented in this encounter Discontinued Medications Medication Sig Discontinue Reason Start Date End Da te LORazepam (ATIVAN) 1 mg tablet Take 1 Tab by mouth at bedtime as needed for Anxiety. Daily Max: 1 mg 12/13/2020 12/25/2020 documented as of this encounter Care Teams Driver Utility Worker Relationship Specialty Start Date End Date Clint Miramontes MD [address] [place] [phone] PCP - General 08/23/19 documented as of this encounter
--- OUTSIDE RECORDS SUMMARY | 2024-08-07 13:39 | XMS_ITS | Encounter Summary ---
Author Organization [facility] Address [address] [place] [address] Care Team Providers Care Instrument Engineer Name Role Phone Clint Miramontes MD Primary Care Provider [phone] Reason for Visit * Reason Onset Date Comments Medications Refill 01/19/2020 Encounter Details Date Type Department Care Team (Late st Contact Info) Description 01/19/2020 Refill [facility] Family Medicine - [place] [address] [place] [phone] Clover Lund, RN [address] [place], [place] [phone] Medications Refill Social History Tobacco Use Types [...] Dispensed Refills Start Date End Da te inhalational spacing device (E-Z SPACER) Inhale 1 Device as directed 2 times daily. For use with Flovent inhaler. Dx: J44.9. 1 Device 01/20/2020 fluticasone propionate (FLOVENT HFA) 110 mcg/actuation inhaler Inhale 2 Puffs as directed every 12 hours. 3 Inhaler 3 01/20/2020 04/21/2022 LORazepam (ATIVAN) 1 mg tablet Take 1 Tab by mouth at bedtime. Daily Max: 1 mg 30 Tab 2 01/20/2020 04/24/2020 documented in this encounter Miscellaneous Notes * Telephone Encounter - Clover Lund RN - 01/19/2020 1641 EDT Last seen 08/18/2019. Next appt is 02/14/20. Rxs loaded for your review. Per VPMS, patient has no refills left for lorazepam. Last filled 01/03/20 for a 30 day supply, so not due until 02/02/20. documented in this encounter Plan of Treatment Upcoming Encounters Date Type Department Care Team (Late st Contact Info) Description 08/10/2024 16:00 EDT Appointment [facility] MRI [address] [place], [place] [phone] 08/16/2024 14:00 EDT EMILIA [facility] OBGYN Ultrasound [address] [place], [place] [address] 08/29/2024 14:00 EDT Office Visit [facility] OBGYN [address] [place], [place] [phone] Ness Vilchis MD 130 [facility], [address] [place] [phone] 08/31/2024 16:00 EDT Office Visit [facility] Orthopedics & Sport Medicine [address], [address] [place], [place] [address] Reema Peoples PA-C 1311 [facility] [address] [place], [place] [phone] 09/01/2024 9:30 EDT Office Visit [facility] Rheumatology [address] [place], [place] [phone] Lin Grider MD 130 [facility] [address] [place] [phone] 11/08/2024 14:00 EST Office Visit [facility] Adult Hematology & Oncology [address] [place] [address], [place] [phone] Luz Maria Peter NP 130 [facility], [facility] [address] [place] [address] 11/22/2024 10:15 EST Office Visit [facility] Family Medicine - [place] [address] [place] [phone] Clint Miramontes MD [address] [place] [phone] documented as of this encounter Visit Diagnoses Not on filedocumented in this encounter Discontinued Medications Medication Sig Discontinue Reason Start Date End Da te LORazepam (ATIVAN) 1 mg tablet Reorder 01/03/2020 01/19/2020 fluticasone propionate (FLOVENT HFA) 110 mcg/actuation inhaler 2 puff(s) inhaled 2 times a day Reorder 01/19/2020 inhalational spacing device (E-Z SPACER) Inhale as directed. Use with a metered dose inhaler, as directed. May be dispensed with mask as appropriate. Reorder 01/19/2020 documented as of this encounter Historical Medications * This list may reflect changes made after this encounter. Medication Sig Dispensed Refills Start Date End Date inhalational spacing device (E-Z SPACER) Inhale as directed. Use with a metered dose inhaler, as directed. May be dispensed with mask as appropriate. 01/19/2020 LORazepam (ATIVAN) 1 mg tablet 01/03/2020 01/19/2020 added in this encounter Care Teams Instrument Engineer Relationship Specialty Start Date End Date Clint Miramontes MD [address] [place] [phone] PCP - General 08/23/19 documented as of this encounter
--- OUTSIDE RECORDS SUMMARY | 2024-08-07 13:39 | XMS_ITS | Encounter Summary ---
Author Organization [facility] Address [address] [place] [address] Care Team Providers Care Soa Integration Developer Name Role Phone Clint Miramontes MD Primary Care Provider [phone] Reason for Visit * Reason Onset Date Comments Medications Refill 09/19/2019 Encounter Details Date Type Department Care Team (Late st Contact Info) Description 09/19/[address] [address] Emi Courtney RN Medications Refill Social History Tobacco Use [...] Daily Max: 1 mg 30 Tab 3 09/19/2019 10/19/2019 lovastatin (MEVACOR) 40 mg tablet 2 tab(s) orally once a day 180 Tab 3 09/19/2019 10/22/2020 documented in this encounter Miscellaneous Notes * Telephone Encounter - Ekta Hemphill RN - 09/19/2019 1701 EST Reviewed with LEVI- ok refill on ativan. Rx printed and signed by LEVI and faxed to [facility] * Telephone Encounter - Emi Courtney - 09/19/2019 1626 EST Can you f/u with Dr Miramontes on this Rx request? Thanks * Telephone Encounter - Emi Courtney - 09/19/2019 1445 EST Message left on Rx line requesting refills for lovastatin & lorazepam. Last OV 08/18/19. Has f/u scheduled 02/14/20. Per protocol, Rx for lovastatin sent for 90 days, 3 RF. VPMS reviewed - last lorazepam Rx written 05/31 w/3 RF - filled 06/06,07/06,08/08,09/05. Rx for lorazepam loaded for 30 days, please confirm refills and sign/print to send to pharmacy documented in this encounter Plan of Treatment Upcoming Encounters Date Type Department Care Team (Late st Contact Info) Description 08/10/2024 16:00 EDT Appointment [facility] MRI [address] [place] [address] 08/16/2024 14:00 EDT EMILIA [facility] OBGYN Ultrasound [address] [place] [address] 08/29/2024 14:00 EDT Office Visit [facility] OBGYN [address] [place] [address], [place] [address] Ness Vilchis MD [address] [place] [address], [address] [place] [address] 08/31/2024 16:00 EDT Office Visit [facility] Orthopedics & Sport Medicine [address], [address] [place], [place] [phone] Reema Peoples PA-C 1311 [facility] [address] [place], [place] [phone] 09/01/2024 9:30 EDT Office Visit [facility] Rheumatology [address] [place] [phone] Lin Grider MD [address] [place] [address] [address] [place] [address] 11/08/2024 14:00 EST Office Visit [facility] Adult Hematology & Oncology [address] [place] [address], [place] [phone] Luz Maria Peter NP [address] [place] [address] [address] [place] [address] 11/22/2024 10:15 EST Office Visit [facility] Family Medicine - [place] [address] [place] [phone] Clint Miramontes MD [address] [place] [phone] documented as of this encounter Visit Diagnoses Not on filedocumented in this encounter Discontinued Medications Medication Sig Discontinue Reason Start Date End Da te fluticasone (FLOVENT) 110 mcg/actuation inhaler Inhale as directed every 12 hours. Reported on 11/11/2016 Duplicate order 09/19/2019 DIAZepam (VALIUM) 5 mg tablet Take 5 mg by mouth as needed for Anxiety (for flying). Duplicate order 09/19/2019 IBANDRONATE SODIUM (BONIVA ORAL) Take by mouth. Once monthly Duplicate order 09/19/2019 LORAZEPAM ORAL Take 1 mg by mouth at bedtime. Duplicate order 09/12/2010 09/19/2019 lovastatin (MEVACOR) 20 mg tablet Take 80 mg by mouth at bedtime. Duplicate order 09/19/2019 oxyCODONE (ROXICODONE) 5 mg immediate release tablet Take 1 Tab by mouth every 4 hours as needed for Pain. Daily Max: 30 mg Duplicate order 11/11/2016 09/19/2019 MULTIVITAMINS (MULTIVITAMIN ORAL) Take 1 Tab by mouth daily. Duplicate order 09/19/2019 ALBUTEROL INHL Inhale as directed. Reported on 11/11/2016 Duplicate order 09/19/2019 acetaminophen (TYLENOL) 500 mg tablet Take 2 Tabs by mouth every 6 hours as needed for Pain. Duplicate order 06/04/2010 09/19/2019 lovastatin (MEVACOR) 40 mg tablet 2 tab(s) orally once a day Reorder 09/19/2019 LORazepam (ATIVAN) 1 mg tablet 1 tab(s) orally bedtime Reorder 09/19/2019 documented as of this encounter Historical Medications * This list may reflect changes made after this encounter. Medication Sig Dispensed Refills Start Date End Date albuterol sulfate 90 mcg/actuation aero powdr breath act w/sensor 2 puff(s) inhaled every 4 hours as needed 04/21/2022 lovastatin (MEVACOR) 40 mg tablet 2 tab(s) orally once a day 09/19/2019 LORazepam (ATIVAN) 1 mg tablet 1 tab(s) orally bedtime 09/19/2019 ibandronate (BONIVA) 150 mg tablet 1 tab(s) orally once a month 07/23/2020 DIAZepam (VALIUM) 5 mg tablet 1 tab(s) orally during travel as needed 01/27/2014 05/07/2021 fluticasone propionate (FLOVENT HFA) 110 mcg/actuation inhaler 2 puff(s) inhaled 2 times a day 01/19/2020 added in this encounter Care Teams Soa Integration Developer Relationship Specialty Start Date End Date Clint Miramontes MD [address] [place] [phone] PCP - General 08/23/19 documented as of this encounter
--- OUTSIDE RECORDS SUMMARY | 2024-08-07 13:39 | XMS_ITS | Encounter Summary ---
Author Organization [facility] Address [address] [place] [address] Care Team Providers Care Tennis Instructor Name Role Phone Clint Miramontes MD Primary Care Provider [phone] Reason for Visit * Reason Comments Follow-up Encounter Details Date Type Department Care Team (Late st Contact Info) Description 01/03/2021 16:00 EST Office Visit [facility] Family Medicine [address] [address] Clint Miramontes MD [address] [place] [address] [phone] Chronic obstructive pulmonary disease, unspecified COPD type ([facility]) (Primary Dx); Vitamin D deficiency; 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 ([facility]); Anxiety; Mixed hyperlipidemia; Osteoporosis, unspecified osteoporosis type, unspecified pathological fracture presence Social History Tobacco Use Types Packs/Day Years [...] Sign Reading Time Taken Comments Blood Pressure 128/74 01/03/2021 1606 EST Pulse 91 01/03/2021 1606 EST Temperature 36.3 ??C (97.4 ??F) 01/03/2021 1606 EST Respiratory Rate 16 01/03/2021 1606 EST Oxygen Saturation - - Inhaled Oxygen Concentration - - Weight 47.2 kg (104 lb) 01/03/2021 1606 EST Height 146.1 cm (4' 9.5) 01/03/2021 1606 EST Body Mass Index 22.12 01/03/2021 1606 EST documented in this encounter [...] Progress Notes * Clint Miramontes MD - 01/03/2021 1600 EST Subjective: Patient ID: Mel Ramirez is an 70 y.o. female. Copd/lipids HPI Lipids - managed with lipid medications. ??No side effects. COPD - using MDI albuterol and Flovent. No chronic cough. ??No chest pains. No shortness of breath. Anxiety - sparing use of lorazapam. ??No SI/HI. ??No panic attacks. Marginal Zone lymphoma - doing well. ??No B symptoms. ?Seeing Dr. Ricci routinely. Patient Active Problem List Diagnosis ??? Cerebral [...] Diagnosis Date ??? Aneurysm (HCC-CMS) ??? Cancer ([facility]) lymphoma-marry marginal ??? Chronic obstructive pulmonary disease ([facility]) 10/06/2019 ??? Coil insertion 06/2010 PCOM aneurysm [...] years: 15.00 Quit date: 07/03/1982 Years since quittin.5 ??? Smokeless tobacco: Never Used ??? Tobacco comment: 1981 quit Substance Use Topics ??? Alcohol use: No ??? Drug use: Yes Frequency: 5.0 times per week Types: Marijuana ROS - See HPI Lab Results Component Value Date HGB 12.1 10/11/2020 MCV 90.0 10/11/2020 PLT 206 10/11/2020 Lab Results Component Value Date NA 137 03/13/2020 K 4.4 03/13/2020 CL 102 03/13/2020 CO2 28 03/13/2020 Lab Results Component Value Date CHOL 178 03/13/2020 CHOL 194 08/15/2019 CHOL 174 09/16/2018 HDL 51 03/13/2020 HDL 51 08/15/2019 HDL 56 09/16/2018 TRIG 115 03/13/2020 TRIG 81 08/15/2019 TRIG 149 09/16/2018 CHOLHDL 3.4 03/13/2020 CHOLHDL 3.8 08/15/2019 CHOLHDL 3.1 09/16/2018 Objective: BP 128/74 (BP Cuff Location: Left arm, BP Patient Position: Sitting, BP Cuff Sizes: Adult, regular) Pulse 91 Temp 36.3 ??C (97.4 ??F) (Temporal) Resp 16 Ht (!) 146.1 cm (57.5) Wt 47.2 kg (104 lb) BMI 22.12 kg/m?? Wt Readings from Last 3 Encounters: 01/03/21 47.2 kg (104 lb) 10/11/20 47.2 kg (104 lb) 07/23/20 46.3 kg (102 lb) BP Readings from Last 3 Encounters: 01/03/21 128/74 10/16/20 133/60 10/11/20 134/74 Physical Exam Gen: Alert and oriented. No distress HEENT: EOMI, PERRLA, TMs normal. Cardiovascular: Normal rate, regular rhythm and normal heart sounds. No murmurs. Pulmonary/Chest: Effort normal and breath sounds normal. Abdomen: soft NT/ND. No hepatosplenomegaly Musculoskeletal: Normal range of motion. Neuro: no gross defects. Skin: Skin is warm. No rash. Lymph: no lymphadenopathy. Psychiatric: normal mood and affect. Assessment: Lymphoma - follow up with Oncology. ? Lipids - conitnue statin. ?Lipids/cmp today. Anxiety - managed with prn lorazapam. ?? Follow up with me in 4-6 mo ?? Plan: There are no diagnoses linked to this encounter. No follow-ups on file. * Yael Bansal, RN - 01/03/2021 1600 EST Pt. Here for follow up for cholesterol/Anxiety/COPD. Doesn't have any concerns. Does not need any prescription refills at this time. Moderna Covid Vaccine 11/03: 12/26/2020 Did have another rash around [place] time. documented in this encounter Plan of Treatment Upcoming Encounters Date Type Department Care Team (Late st Contact Info) Description 08/10/2024 16:00 EDT Appointment [facility] MRI [address] [place], [place] [id number] 08/16/2024 14:00 EDT EMILIA [facility] OBGYN Ultrasound [address] [place] [address] 08/29/2024 14:00 EDT Office Visit [facility] OBGYN [address] [place] [phone] Ness Vilchis MD [address] [place] [address], [address] [place] [address] 08/31/2024 16:00 EDT Office Visit [facility] Orthopedics & Sport Medicine [address], [address] [place] [address] Reema Peoples PA-C 13[address] [facility] [address] [place], [place] [address] 09/01/2024 9:30 EDT Office Visit [facility] Rheumatology [address] [place] [phone] Lin Grider MD [address] [place] [address] [address] [place] [phone] 11/08/2024 14:00 EST Office Visit [facility] Adult Hematology & Oncology [address] [place] [address], [place] [address] Luz Maria Peter, GABRIEL [address] [facility], [address] [place] [phone] 11/22/2024 10:15 EST Office Visit [facility] [place] [address] [place] [phone] Clint Miramontes MD [address] [place] [address] [phone] documented as of this encounter Visit Diagnoses Diagnosis Chronic obstructive pulmonary disease, unspecified COPD type ([facility])- Primary Vitamin D deficiency Unspecified vitamin D deficiency 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
--- OUTSIDE RECORDS SUMMARY | 2024-08-07 13:39 | XMS_ITS | Encounter Summary ---
Author Organization [facility] Address [address] [place] [address] Care Team Providers Care Research Spec Name Role Phone Clint Miramontes MD Primary Care Provider [phone] Encounter Details Date Type Department Care Team (Late st Contact Info) Description 05/09/[address] [facility] Radiology Results [address] [place] [address] Clint Miramontes MD [address] [place] [phone] Social History Tobacco Use Types Packs/Day [...] Description 08/10/2024 16:[address] [facility] MRI [address] [place], [place] [address] 08/16/2024 14:[address] [facility] OBGYN Ultrasound [address] [place] [address] 08/29/2024 14:[address] [facility] OBGYN [address] [place], [place] [phone] Ness Vilchis MD [address] [place] [address], [address] [place] [address] 08/31/2024 16:[address] [facility] Orthopedics & Sport Medicine [address] [place] [address] Reema Peoples PA-Mukund 13[address] [facility] [address] [place], [place] [phone] 09/01/2024 9:[address] [facility] Rheumatology [address] [place] [phone] Lin Grider MD [address] [place] [address] [address] [place] [address] 11/08/2024 14:[address] [facility] Adult Hematology & Oncology [address] [place] [address], [place] [phone] Luz Maria Peter NP 130 [facility], [facility] [address] [place] [address] 11/22/2024 10:[address] [facility] Family Medicine - [place] [address] [place], [place] [phone] Clint Miramontes MD [address] [place] [phone] documented as of this encounter Procedures Procedure Name Priority Date/Time Associated Diagnosis Comments MA BREAST SCREENING ELO BILATERAL 05/09/2020 8:51 EDT documented in this encounter Results * MA BREAST SCREENING ELO BILATERAL (05/09/2020 8:51 EDT) Anatomical Region Laterality Modality Breast Bilateral Mammography 05/09/2020 8:50 EDT Narrative 05/09/2020 8:51 EDT ? EXAM: MAMMOGRAM/MAMMO BILATERAL SCREEN W ??EX. D/ (0759) ? CLINICAL INFORMATION: ? Z12.31 SCREENING ? TECHNIQUE: ??Full field digital whole breast 2D (C-view) and 3D CC and ? MLO views of both breasts were obtained. CAD technology was utilized. ? COMPARISON: Comparison has been made to previous images ? FINDINGS: ??The fibroglandular patterns of the breasts are normal. ? There has been no change when compared to previous mammograms and ? there is no mammographic evidence of cancer. There are scattered ? areas of fibroglandular density. ? FINAL ASSESSMENT: ??BILATERAL BREAST - Category 1 - Negative. Routine ? mammographic follow-up is recommended. ? These results will be communicated to your patient via a lay letter ? from Radiology. ??If any additional imaging is needed we will contact ? your patient directly. ? REPORT SIGNED IN OTHER VENDOR SYSTEM 05/09/2020 ?Reported By: Reji Carroll MD ? CC: ? Transcribed Date/Time: 05/09/2020 (850) ? Car Hostler: ? Printed Date/Time: 05/09/2020 (1856) ? PAGE 1 ? Signed Report ? Procedure Note Reji Carroll MD - 05/09/2020 EXAM: MAMMOGRAM/MAMMO BILATERAL SCREEN W EX. D/ (0759) CLINICAL INFORMATION: Z12.31 SCREENING TECHNIQUE: Full field digital whole breast 2D (C-view) and 3D CCand MLO views of both breasts were obtained. CAD technology wasutilized. COMPARISON: Comparison has been made to previous images FINDINGS: The fibroglandular patterns of the breasts are normal. There has been no change when compared to previous mammograms and there is no mammographic evidence of cancer. There are scattered areas of fibroglandular density. FINAL ASSESSMENT: BILATERAL BREAST - Category 1 - Negative.Routine mammographic follow-up is recommended. These results will be communicated to your patient via a lay letter from Radiology. If any additional imaging is needed we willcontact your patient directly. REPORT SIGNED IN OTHER VENDOR SYSTEM 05/09/2020 Reported By: Reji Carroll MD CC: Transcribed Date/Time: 05/09/2020 (850) Car Hostler: Printed Date/Time: 05/09/2020 (6132) PAGE 1 Signed Report Clint Miramontes MD IMG MAMMOGRAPHY [facility] documented in this encounter Visit Diagnoses Not on filedocumented in this encounter Care Teams Research Spec Relationship Specialty Start Date End Date Clint Miramontes MD [address] [place] [phone] PCP - General 08/23/19 documented as of this encounter
--- OUTSIDE RECORDS SUMMARY | 2024-08-07 13:39 | XMS_ITS | Encounter Summary ---
Author Organization [facility] Address [address] [place] [address] Care Team Providers Care Lifts And Cranes Inspector Name Role Phone Clint Miramontes MD Primary Care Provider [phone] Reason for Visit * Reason Onset Date Comments Medications Refill 12/12/2020 Encounter Details Date Type Department Care Team (Late st Contact Info) Description 12/12/2020 Refill [facility] - [address] [address] Ekta Hemphill, ATTILA Medications Refill Social History [...] for Anxiety. Daily Max: 1 mg 30 Tab 3 12/13/2020 12/25/2020 documented in this encounter Miscellaneous Notes * Telephone Encounter - Ekta Hemphill, RN - 12/12/2020 0637 EST Mel WILLIAM on nurse line requesting refill of ativan CAROL 08/2020 Ativan last filled 11/25/20 #30 Rx loaded to send to pharmacy documented in this encounter Plan of Treatment Upcoming Encounters Date Type Department Care Team (Late st Contact Info) Description 08/10/2024 16:00 EDT Appointment [facility] MRI [address] [place] [address] 08/16/2024 14:00 EDT EMILIA [facility] OBGYN Ultrasound [address] [place] [address] 08/29/2024 14:00 EDT Office Visit [facility] OBGYN [address] [place] [address] [phone] Ness Vilchis MD [address] [place] [address], [address] [place] [address] 08/31/2024 16:00 EDT Office Visit [facility] Orthopedics & Sport Medicine [address], [address] [place], [place] [phone] Reema Peoples PA-C 1311 [facility] [address] [place], [place] [phone] 09/01/2024 9:30 EDT Office Visit [facility] Rheumatology [address] [place], [place] [phone] Lin Grider MD [address] [place], [place] [address]B [address] [place] [address] 11/08/2024 14:00 EST Office Visit [facility] Adult Hematology & Oncology [address] [place] [address] Luz Maria Peter NP [address] [facility], [facility] [address] [place] [address] 11/22/2024 10:15 EST Office Visit [facility] Family Medicine - [employer] [address] [place] [address] Clint Miramontes MD [address] [place] [phone] documented as of this encounter Visit Diagnoses Not on filedocumented in this encounter Discontinued Medications Medication Sig Discontinue Reason Start Date End Da te LORazepam (ATIVAN) 1 mg tablet Take 1 Tab by mouth at bedtime as needed for Anxiety. Daily Max: 1 mg Reorder 08/07/2020 12/12/2020 documented as of this encounter Care Teams Lifts And Cranes Inspector Relationship Specialty Start Date End Date Clint Miramontes MD [address] [place] [phone] PCP - General 08/23/19 documented as of this encounter
--- OUTSIDE RECORDS SUMMARY | 2024-08-07 13:39 | XMS_ITS | Encounter Summary ---
Author Organization [facility] Address [address] [place] [address] Care Team Providers Care Loom Starter Name Role Phone Clint Miramontes MD Primary Care Provider [phone] Reason for Visit * Reason Comments Follow-up Encounter Details Date Type Department Care Team (Late st Contact Info) Description 05/07/2021 10:30 EDT Office Visit [facility] Adult Hematology & Oncology [address] [place] [address] [place] [address] [facility] [address] [place] [address] (Fax) Lymphoma of lymph nodes of head [...] Sign Reading Time Taken Comments Blood Pressure 138/66 05/07/2021 1030 EDT Pulse 72 05/07/2021 1030 EDT Temperature 36.8 ??C (98.2 ??F) 05/07/2021 1030 EDT Respiratory Rate - - Oxygen Saturation 96% 05/07/2021 1030 EDT Inhaled Oxygen Concentration - - Weight 46.3 kg (102 lb) 05/07/2021 1030 EDT Height - - Body Mass Index 21.69 01/03/2021 1606 EST documented in this encounter [...] Progress Notes * Sheyla Atwood MD - 05/07/2021 1030 EDT Patient Active Problem List Diagnosis ??? 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 Clinical stage IIIa disease with numerous small lymph nodes above and below the diaphragm. No treatment at this time. Subjective Interim History: Patient returns for follow-up. She is doing generally well today with no complaints. Denies any fevers, night sweats or unintentional weight loss. Retired 2 weeks ago. Denies any recent hospitalizations. Review of Systems: Review of Systems Constitutional: [...] years: 15.00 Quit date: 07/03/1982 Years since quittin.8 ??? Smokeless tobacco: Never Used ??? Tobacco comment: 1982 quit Substance Use Topics ??? Alcohol use: [...] 2,000 Units by mouth daily. Taking ??? fluticasone propionate (FLOVENT HFA) 110 mcg/actuation inhaler Inhale 2 Puffs as directed every12 hours. 3 Inhaler 3 Taking ??? ibandronate (BONIVA) 150 mg tablet 1 tab(s) orally once a month 3 Tab 3 Taking ??? inhalational spacing device (E-Z SPACER) Inhale 1 Device as directed 2 times daily. For use with Flovent inhaler. Dx: J44.9. 1 Device 0 Taking ??? LORazepam (ATIVAN) 1 mg tablet TAKE ONE TABLET BY MOUTH AT BEDTIME NEEDED FOR ANXIETY 30 Tablet 3 Taking ??? lovastatin (MEVACOR) 40 mg tablet Take 2 Tabs by mouth daily. 180 Tab 3 Taking No current facility-administered medications for this visit. Vitals: 05/07/21 1030 BP: 138/66 Pulse: 72 Temp: 36.8 ??C (98.2 ??F) SpO2: 96% Weight: 46.3 kg (102 lb) Wt Readings from Last 3 Encounters: 05/07/21 46.3 kg (102 lb) 03/06/21 46.2 kg (101 lb 14.4 oz) 01/03/21 47.2 kg (104 lb) Physical Exam: Physical Exam Constitutional: She is oriented to person, place, and time. HENT: Head: Normocephalic and atraumatic. Eyes: EOM are normal. Cardiovascular: Regular rhythm. Pulmonary/Chest: Effort normal and breath sounds normal. Abdominal: Soft. There is no abdominal tenderness. Musculoskeletal: Cervical back: Normal range of motion and neck supple. Lymphadenopathy: She has no cervical adenopathy. She has axillary adenopathy. No inguinal adenopathy noted on [...] of B symptoms or palpable bulky lymphadenopathy. Blood counts reviewed and wnl. Will continue to follow her on observation. Plan: 1. Return for follow-up in 6 months. Sheyla Atwood MD Hematology/Oncology [facility] * Kristen Fabian RN - 05/07/2021 1030 EDT Suspicion of Abuse: no - If yes, please document evidence: - Assessed on: 05/07/21 13:14 - Assessed by: KRISTEN FABIAN RN Procedures: - Venipuncture Performed by: KRISTEN FABIAN RN Site Collected: Right Antecubital Space Volume Withdrawn: STT: 8.5ml and Lavender Top: 3.0ml Patient Response:Patient tolerated venipuncture well Number of attempts: Collected on: 05/07/21 13:14 Ordering Provider:Sheyla Atwood MD documented in this encounter Plan of Treatment Upcoming Encounters Date Type Department Care Team (Late st Contact Info) Description 08/10/2024 16:00 EDT Appointment [facility] MRI [address] [place] [address] 08/16/2024 14:00 EDT EMILIA [facility] OBGYN Ultrasound [address] [place] [address] 08/29/2024 14:00 EDT Office Visit [facility] OBGYN [address] [place] [address] Ness Vilchis MD 130 [facility] [address], [address] [place] [address] 08/31/2024 16:00 EDT Office Visit [facility] Orthopedics & Sport Medicine [address], [address] [place], [place] [address] Reema Peoples PA-C 1311 [facility] [address] [place], [place] [phone] 09/01/2024 9:30 EDT Office Visit [facility] Rheumatology 130 [facility], [place] [phone] Lin Grider MD [address] [facility] [address] [place] [address] 11/08/2024 14:00 EST Office Visit [facility] Adult Hematology & Oncology [address] [place] [address], [place] [phone] Luz Maria Peter NP 130 [facility] [address] [place] [address] 11/22/2024 10:15 EST Office Visit [facility] Family Medicine - [place] [address] [place] [address] Clint Miramontes MD [address] [place] [phone] documented as of this encounter Procedures Procedure Name Priority Date/Time Associated Diagnosis Comments LDH Routine 05/07/2021 10:30 EDT 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 ([facility]) CBC W/PLT & DIFF,POINT OF CARE - [facility] Routine 05/07/2021 10:25 EDT 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) documented in this encounter Results * LDH (05/07/2021 10:30 EDT) LDH - [facility] 457 313 - 618 U/L 05/07/2021 18:38 EDT [facility] Blood VENOUS BLOOD / Unknown 05/07/2021 10:30 EDT 05/07/2021 17:51 EDT Sheyla Atwood MD CHEMISTRY & BLOOD GA S ORDERABLES [facility] [address] [place] [address] * CBC W/PLT & DIFF,POINT OF CARE - [facility] (05/07/2021 10:25 EDT) Pathologist [facility] ABSOLUTE NEUTROPHIL COUN - [facility] 2.2 2.2 - 8.85 10e3/uL 05/07/2021 12:31 [facility] BASO # - [facility] 0.02 0.01 - 0.11 10e/uL 05/07/2021 12:31 [facility] BASO % - [facility] 1 0 - 2 % 05/07/2021 12:31 [facility] EOS # - [facility] 0.15 0.03 - 0.61 10e3/uL 05/07/2021 12:31 [facility] EOS % - [facility] 4 0 - 5 % 05/07/2021 12:31 [facility] GRAN % - [facility] 51.6 40 - 80 % 05/07/2021 12:31 [facility] HEMATOCRIT - [facility] 39.6 34.9 - 44.4 % 05/07/2021 12:31 [facility] HEMOGLOBIN - [facility] 13.3 11.6 - 15.2 g/dl 05/07/2021 12:31 [facility] LYMPH # - [facility] 1.5 1.09 - 3.3 10e3/ul 05/07/2021 12:31 [facility] LYMPH% - [facility] 36.0 20 - 40 % 05/07/2021 12:31 [facility] MEAN CORPUSCULAR HGB - [facility] 30.0 26.7 - 33.3 pg 05/07/2021 12:31 [facility] MEAN CORPUSCULAR HGB CONC - [facility] 33.6 32.1 - 35.9 g/dl 05/07/2021 12:31 [facility] MEAN CELL VOLUME - [facility] 89.2 81 - 98 fl 05/07/2021 12:31 [facility] MONO # - [facility] 0.4 0.1 - 0.8 10e3/uL 05/07/2021 12:31 [facility] MONO% - [facility] 8.3 0 - 12 % 05/07/2021 12:31 [facility] PLATELET COUNT 180 141 - 377 10e3/ul 05/07/2021 12:31 [facility] RED BLOOD COUNT - [facility] 4.44 3.86 - 5.04 10e6/ul 05/07/2021 12:31 [facility] RED CELL DISTRI WIDTH - [facility] 12.8 <14.7 % 05/07/2021 12:31 [facility] WHITE BLOOD COUNT - [facility] 4.2 4.0 - 12.4 10e3/ul 05/07/2021 12:31 [facility] 05/07/2021 10:2 5 EDT 05/07/2021 10:25 EDT Sheyla Atwood MD CHEMISTRY & BLOOD GA S ORDERABLES [facility] [address] [place] [address] documented in this encounter Visit Diagnoses Diagnosis 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
--- OUTSIDE RECORDS SUMMARY | 2024-08-07 13:39 | XMS_ITS | Encounter Summary ---
Author Organization [facility] Address [address] [place] [address] Care Team Providers Care Tyre Builder Name Role Phone Clint Miramontes MD Primary Care Provider [phone] Reason for Visit * Reason Onset Date Comments Referral Request 03/27/2020 Encounter Details Date Type Department Care Team (Late st Contact Info) Description 03/27/2020 Telephone [facility] Medicine [address] [address] Clint Miramontes MD [address] [place] [address] [phone] Referral Request Social History Tobacco Use Types [...] Telephone Encounter - Clover Lund RN - 03/27/2020 1637 EDT Spoke with Mel. Had bladder prolapse surgery in the past with Dr. Faust. Is now having similarissues (but not as severe) and has been having them for 1-2 months. States that she can see some bladder prolapse and then also will notice that a few drops of urine come out after she thinks she hasalready expelled it all. Was given a pessary to use after her first surgery. It was too painful to c ontinue to use and she developed a discharge after using it. Does not want to use a pessary again. I recommended that she check in with Dr. Faust's office and call us back PRN. Anything else to recommend? * Telephone Encounter - Mynor Cobb - 03/27/2020 1227 EDT Patient reports the feeling of bladder fullness and it's preventing patient from working. She has had a natural bladder repair done in the past (4 years) and is wanting to know if she should return to Dr. Faust whom she had seen before, or be referred to another provider. documented in this encounter Plan of Treatment Upcoming Encounters Date Type Department Care Team (Late st Contact Info) Description 08/10/2024 16:00 EDT Appointment [facility] MRI [address] [place] [address] 08/16/2024 14:00 EDT EMILIA [facility] OBGYN Ultrasound [address] [place] [address] 08/29/2024 14:00 EDT Office Visit [facility] OBGYN [address] [place], [place] [phone] Ness Vilchis MD 130 [facility], [address] [place] [address] 08/31/2024 16:00 EDT Office Visit [facility] Orthopedics & Sport Medicine [address], [address] [place], [place] [phone] Reema Peoples PA-C [address] [facility] [address] [place], [place] [phone] 09/01/2024 9:30 EDT Office Visit [facility] Rheumatology [address] [place] [phone] Lin Grider MD [address] [place] [address] [address] [place] [address] 11/08/2024 14:00 EST Office Visit [facility] Adult Hematology & Oncology [address] [place] [address], [place] [address] Luz Maria Peter NP 130 [facility] [address] [place] [phone] 11/22/2024 10:15 EST Office Visit [facility] Family Medicine - [place] [address] [place] [address] Clint Miramontes MD [address] [place] [phone] documented as of this encounter Visit Diagnoses Not on filedocumented in this encounter Care Teams Tyre Builder Relationship Specialty Start Date End Date Clint Miramontes MD [address] [place] [phone] PCP - General 08/23/19 documented as of this encounter
--- OUTSIDE RECORDS SUMMARY | 2024-08-07 13:39 | XMS_ITS | Encounter Summary ---
Author Organization [facility] Address [address] [place] [address] Care Team Providers Care Disc Ruler Operator Name Role Phone Clint Miramontes MD Primary Care Provider [phone] Reason for Visit * Reason Comments Ankle Injury Patient reports that she injured her right ankle/bottom of gomes on 10/04/20. Patient states that she hit her ankle on the bottom of a chair. Patient states that following the incident her ankle was swollen. Encounter Details Date Type Department Care Team (Late st Contact Info) Description 10/16/2020 14:30 EST [facility] [address] [place] [phone] Collette Zuluaga PA-C [address] [facility] [address] [place] [address] Hematoma (Primary Dx) Social History Tobacco Use Types [...] Sign Reading Time Taken Comments Blood Pressure 133/60 10/16/2020 1431 EST Pulse 82 10/16/2020 1431 EST Temperature 36.1 ??C (97 ??F) 10/16/2020 1431 EST Respiratory Rate 18 10/16/2020 1431 EST Oxygen Saturation 96% 10/16/2020 1431 EST Inhaled Oxygen Concentration - - Weight [...] as of this encounter Progress Notes * Dago Cota RN - 10/16/2020 1430 EST CC: Patient reports that she injured her right ankle/bottom of gomes on 10/04/20. Patient states that she hit her ankle on the bottom of a chair. Patient states that following the incident her ankle was swollen. Has the patient contacted their PCP regarding this chief complaint? No Covid Screening: In the last 72 hours, has the patient had: Shortness of breath, cough, sore throat, nasal congestion, runny nose, fever/chills/body aches, headache, or loss of taste or smell: No If no, in the past 14 days, has the patient had known close contact (< 6 feet for > 15 minutes) with a confirmed Covid-19 positive patient? No If no, have they had travel outside the [facility] in the past 14 days? No Assessed patient's safety at home on 10/16/20. Patient reports that she feels safe at home. DAGO COTA RN 10/16/20 14:29 * Collette Zuluaga PA-C - 10/16/2020 1430 EST [facility] Initial Visit Note Subjective: Chief Complaint(s): Ankle Injury (Patient reports that she injured her right ankle/bottom of gomes on 10/04/20. Patient states that she hit her ankle on the bottom of a chair. Patient states that following the incident her ankle was swollen.) HPI: Mel Ramirez is a 70 y.o. year-old female that I am seeing in after a reported work-place injury. Date of Injury: 04 Oct 2020 Employer: [employer] Patient Job Title: Administrative Mechanism of Injury: blunt trauma to R ankle Pt hit anterior R ankle on a metal chair, still having pain and swelling ROS: Review of Systems Constitutional: Negative for fever. Musculoskeletal: Positive for joint pain. R ankle pain and swelling, pt does take daily ASA Objective: Examination: Vitals: temperature is 36.1 ??C (97 ??F). Her blood pressure is 133/60 and her pulse is 82. Her respirationis 18 and oxygen saturation is 96%. There is no height or weight on file to calculate BMI. Physical Exam Constitutional: Appearance: Normal appearance. She is normal weight. Comments: Animated in conversation Cardiovascular: Rate and Rhythm: Normal rate. Pulmonary: Effort: Pulmonary effort is normal. No respiratory distress. Musculoskeletal: General: Swelling, tenderness and signs of injury present. Comments: Anterior R ankle is golf ball sized hematoma, mild TTP, moderate ecchymosis about the whole ankle, medial R foot (pt is on daily ASA), AFROM, +pedal pulses, skin intact, can flex and extendR foot freely, nl ambulation Neurological: Mental Status: She is alert and oriented to person, place, and time. Coordination: Coordination normal. Assessment & Plan: 1. Hematoma - XR ANKLE RIGHT 3 OR MORE VIEWS; Future RAD: no acute bony injury as read by me Discussed rest, elevate, compression (pt given DESIRAE wrap for home use), discussed hematoma will linger for quite some time, can perform activities as tolerated, pt v/u and agrees to POC The reason for visit IS related to reported mechanism of injury. documented in this encounter Plan of Treatment Upcoming Encounters Date Type Department Care Team (Late st Contact Info) Description 08/10/2024 16:00 EDT Appointment [facility] [address] [place], [place] [address] 08/16/2024 14:00 EDT EMILIA [facility] OBGYN Ultrasound [address] [place] [address] 08/29/2024 14:00 EDT Office Visit [facility] OBGYN [address] [place] [address] Ness Vilchis MD [address] [place] [address], [address] [place] [address] 08/31/2024 16:00 EDT Office Visit [facility] Orthopedics & Sport Medicine [address], [address] [place] [address] Reema Peoples PA-C [address] [facility] [address] [place] [address] 09/01/2024 9:30 EDT Office Visit [facility] Rheumatology [address] [place] [phone] Lin Grider MD [address] [place] [address] [address] [place] [address] 11/08/2024 14:00 EST Office Visit [facility] Adult Hematology & Oncology [address] [place] [address] Luz Maria Peter, GABRIEL [address] [place] [address] [address] [place] [address] 11/22/2024 10:15 EST Office Visit [facility] Family Medicine - [place] [address] [facility] [address] Clint Miramontes MD [address] [place] [phone] documented as of this encounter Procedures Procedure Name Priority Date/Time Associated Diagnosis Comments XR ANKLE RIGHT 3 OR MORE VIEWS 10/16/2020 15:08 EST documented in this encounter Results * XR ANKLE RIGHT 3 OR MORE VIEWS (10/16/2020 15:08 EST) Anatomical Region Laterality Modality Lower Extremities, Ankle Right Compute d Radiography 10/16/2020 15:0 5 EST Narrative 10/16/2020 15:08 EST ? EXAM: RADIOLOGY EXPRESS CARE/EXP CARE ANK EX. D/ (3044) ? CLINICAL INFORMATION: ? BLUNT TRAUMA LARGE HENATOMA OVER ANTERIOR RIGHT ANKLE ? INDICATION: BLUNT TRAUMA LARGE HEMATOMA OVER ANTERIOR RIGHT ANKLE. ? COMPARISON: None. ? TECHNIQUE: 3+ views of the right ankle were obtained. ? FINDINGS: ? Mild swelling of the ankle soft tissues. The ankle mortise is ? symmetric and intact. No fracture or osteonecrosis. Tiny plantar ? calcaneal spur. ? IMPRESSION: No fracture. ? REPORT SIGNED IN OTHER VENDOR SYSTEM 10/16/2020 ?Reported By: Bharath Patel MD ? CC: ? Transcribed Date/Time: 10/16/2020 (0474) ? Apigee Developer: ? Printed Date/Time: 10/16/2020 (4856) ? PAGE 1 ? Signed Report ? Procedure Note Bharath Patel MD - 10/16/2020 EXAM: RADIOLOGY EXPRESS CARE/EXP CARE ANK EX. D/ (3156) CLINICAL INFORMATION: BLUNT TRAUMA LARGE HENATOMA OVER ANTERIOR RIGHT ANKLE INDICATION: BLUNT TRAUMA LARGE HEMATOMA OVER ANTERIOR RIGHT ANKLE. COMPARISON: None. TECHNIQUE: 3+ views of the right ankle were obtained. FINDINGS: Mild swelling of the ankle soft tissues. The ankle mortise is symmetric and intact. No fracture or osteonecrosis. Tiny plantar calcaneal spur. IMPRESSION: No fracture. REPORT SIGNED IN OTHER VENDOR SYSTEM 10/16/2020 Reported By: Bharath Patel MD CC: Transcribed Date/Time: 10/16/2020 (1350) Apigee Developer: Printed Date/Time: 10/16/2020 (2469) PAGE 1 Signed Report Collette Zuluaga PA-C IMG DIAGNOSTIC IMAGI NG ORDERABLES documented in this encounter Visit Diagnoses Diagnosis Hematoma- Primary Contusion of unspecified site documented in this encounter Care Teams Disc Ruler Operator Relationship Specialty Start Date End Date Clint Miramonets MD [address] [place] [phone] PCP - General 08/23/19 documented as of this encounter
--- OUTSIDE RECORDS SUMMARY | 2024-08-07 13:39 | XMS_ITS | Encounter Summary ---
Author Organization [facility] Address [address] [place] [address] Care Team Providers Care Territory Account Manager Name Role Phone Clint Miramontes MD Primary Care Provider [phone] Reason for Visit * Reason Onset Date Comments Medications Refill 04/23/2021 Encounter Details Date Type Department Care Team (Late st Contact Info) Description 04/23/2021 Refill Health system - [facility] [place] [place] Family Medicine - [address] [address] Clint Miramontes MD [address] [place] [phone] Medications Refill Social History Tobacco Use Types [...] BEDTIME NEEDED FOR ANXIETY, DAILY MAX=1MG 30 Tablet 3 04/23/2021 04/29/2021 documented in this encounter Miscellaneous Notes * Telephone Encounter - Yael Bansal RN - 04/23/2021 1135 EDT CAROL- F/u- None Per [facility] last fill was 03/28/21 #30 for 30 days. Loaded for your review. * Telephone Encounter - Bobbi Brown - 04/23/2021 1102 EDT Patient called requesting refill of Lorazepam be sent to [facility]. documented in this encounter Plan of Treatment Upcoming Encounters Date Type Department Care Team (Late st Contact Info) Description 08/10/2024 16:00 EDT Appointment [facility] MRI [address] [place], [place] [phone] 08/16/2024 14:00 EDT EMILIA [facility] OBGYN Ultrasound [address] [place], [place] [phone] 08/29/2024 14:00 EDT Office Visit [facility] OBGYN [address] [place] [address] Ness Vilchis MD 130 [facility], [address] [place] [address] 08/31/2024 16:00 EDT Office Visit [facility] Orthopedics & Sport Medicine [address], [address] [place] [address] Reema Peoples PA-C [address] [facility] [address] [place] [address] 09/01/2024 9:30 EDT Office Visit [facility] Rheumatology 130 [facility], [place] [phone] Lin Grider MD 130 [facility] [address] [place] [address] 11/08/2024 14:00 EST Office Visit [facility] Adult Hematology & Oncology [address] [place] [address], [place] [address] Luz Maria Peter NP 130 [facility] [address] [place] [address] 11/22/2024 10:15 EST Office Visit [facility] Family Medicine - [place] [address] [place] [phone] Clint Miramontes MD [address] [place] [phone] documented as of this encounter Visit Diagnoses Not on filedocumented in this encounter Discontinued Medications Medication Sig Discontinue Reason Start Date End Da te LORazepam (ATIVAN) 1 mg tablet TAKE ONE TABLET BY MOUTH AT BEDTIME NEEDED FOR ANXIETY, DAILY MAX=1MG Reorder 12/25/2020 04/23/2021 documented as of this encounter Care Teams Territory Account Manager Relationship Specialty Start Date End Date Clint Miramontes MD [address] [place] [phone] PCP - General 08/23/19 documented as of this encounter
--- OUTSIDE RECORDS SUMMARY | 2024-08-07 13:39 | XMS_ITS | Encounter Summary ---
Author Organization [facility] Address [address] [place] [address] Care Team Providers Care Harvesting Contractor Name Role Phone Clint Miramontes MD Primary Care Provider [phone] Encounter Details Date Type Department Care Team (Late st Contact Info) Description 04/05/2021 Abstract [facility] - [facility] Family Medicine - [address] [address] Cht Panel Coordinator, [facility] [place] Adult Social History Tobacco Use Types Packs/Day Years [...] Contact Info) Description 08/10/2024 16:00 EDT Appointment [facility] MRI [address] [place], [place] [phone] 08/16/2024 14:00 EDT EMILIA [facility] OBGYN Ultrasound [address] [place] [address] 08/29/2024 14:00 EDT Office Visit [facility] OBGYN [address] [place] [address] Ness Vilchis MD [address] [place] [address], [address] [place] [address] 08/31/2024 16:00 EDT Office Visit [facility] Orthopedics & Sport Medicine [address], [address] [place] [address] Reema Peoples PA-C [address] [facility] [address] [place], [place] [phone] 09/01/2024 9:30 EDT Office Visit [facility] Rheumatology [address] [place] [phone] Lin Grider MD [address] [place] [address] [address] [place] [address] 11/08/2024 14:00 EST Office Visit [facility] Adult Hematology & Oncology [address] [place] [address], [place] [phone] Luz Maria Peter NP 130 [facility] [address] [place] [address] 11/22/2024 10:15 EST Office Visit [facility] Family Medicine - [place] [address] [place], [place] [phone] Clint Miramontes MD [address] [place] [phone] documented as of this encounter Procedures Procedure Name Priority Date/Time Associated Diagnosis Comments COLONOSCOPY PROCEDURE Routine 09/20/2019 documented in this encounter Results * COLONOSCOPY PROCEDURE (09/20/2019) Colonoscopy Colonoscopy, External Comment:Normal, repeat in 10 yrs Anatomical Region Laterality Modality Endoscopy Historical Provider GI PROCEDURE PRABHU CASPER documented in this encounter Visit Diagnoses Not on filedocumented in this encounter Care Teams Harvesting Contractor Relationship Specialty Start Date End Date Clint Miramontes MD [address] [place] [phone] PCP - General 08/23/19 documented as of this encounter
--- OUTSIDE RECORDS SUMMARY | 2024-08-07 13:39 | XMS_ITS | Encounter Summary ---
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); Mixed hyperlipidemia; Chronic obstructive pulmonary disease, unspecified COPD type ([facility]); Anxiety Social History Tobacco Use Types Packs/Day Years [...] Sign Reading Time Taken Comments Blood Pressure 140/80 08/28/2020 1609 EDT Pulse 73 08/28/2020 1609 EDT Temperature 36.6 ??C (97.8 ??F) 08/28/2020 1609 EDT Respiratory Rate 16 08/28/2020 1609 EDT Oxygen Saturation - - Inhaled Oxygen Concentration - - Weight - - Height 148.6 cm (4' 10.5) 08/28/2020 1609 EDT Body Mass Index - - documented in [...] as of this encounter Progress Notes * Maci Farrar RN - 08/28/2020 1600 EDT Influenza vaccine administered. No previous reactions, no allergies. All set. * Clint Miramontes MD - 08/28/2020 1600 EDT Subjective: Patient ID: Mel Ramirez is an 70 y.o. female. Chief Complaint Patient presents with ??? Follow-up HPI Lipids - managed with lipid medications. No side effects. COPD - using MDI albuterol and Flovent. No chronic cough. No chest pains. No shortness of breath. Anxiety - sparing use of lorazapam. No SI/HI. No panic attacks. 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 Seeing Dr. Ricci routinely. ? Patient Active Problem List Diagnosis ??? Cerebral [...] Diagnosis Date ??? Aneurysm (HCC-CMS) ??? Cancer (HCC-CMS) lymphoma-marry marginal ??? Chronic [...] at bedtime as needed for Anxiety. Daily Max:1 mg 30 Tab 3 ??? lovastatin (MEVACOR) 40 mg tablet 2 tab(s) orally once a day 180 Tab 3 No current facility-administered medications on file prior to visit. Allergies Allergen Reactions ??? Crestor [Rosuvastatin] Rash ??? No Known Drug Allergies ??? Other - See Comments Wasp stings- swollen local reactions ??? Pravastatin Rash Social Social History Tobacco Use ??? Smoking status: Former Smoker Packs/day: 1.00 Years: 15.00 Pack years: 15.00 Quit date: 07/03/1982 Years since quittin.1 ??? Smokeless tobacco: Never Used ??? Tobacco comment: 1982 quit Substance Use Topics ??? Alcohol use: No ??? Drug use: Yes Frequency: 5.0 times per week Types: Marijuana ROS - See HPI Lab Results Component Value Date HGB 12.9 04/04/2020 MCV 90.0 04/04/2020 PLT 187 04/04/2020 Lab Results Component Value Date NA 137 03/13/2020 K 4.4 03/13/2020 CL 102 03/13/2020 CO2 28 03/13/2020 Lab Results Component Value Date NA 137 03/13/2020 K 4.4 03/13/2020 CL 102 03/13/2020 CO2 28 03/13/2020 Objective: BP 140/80 (BP Cuff Location: Right arm, BP Patient Position: Sitting) Pulse 73 Temp 36.6 ??C (97.8 ??F) Resp 16 Ht (!) 148.6 cm (58.5) BMI 20.96 kg/m?? Wt Readings from Last 3 Encounters: 07/23/20 46.3 kg (102 lb) 04/04/20 47.2 kg (104 lb) 03/12/20 47.3 kg (104 lb 3.2 oz) Wt Readings from Last 3 Encounters: 07/23/20 46.3 kg (102 lb) 04/04/20 47.2 kg (104 lb) 03/12/20 47.3 kg (104 lb 3.2 oz) Physical Exam HENT: EOMI, PERRLA Nose: Nose normal. Mouth/Throat: Oropharynx is clear. Eyes: Pupils are equal, round, and reactive to light. Neck: Normal range of motion. Cardiovascular: Normal rate, regular rhythm and normal heart sounds. Pulmonary/Chest: Effort normal and breath sounds normal. Musculoskeletal: Normal range of motion. Neurological:alert. Skin: Skin is warm. Psychiatric: normal mood and affect. Assessment: Lymphoma - follow up with Oncology. Lipids - conitnue statin. Lipids/cmp today. Anxiety - managed with prn lorazapam. Follow up with me in 4-6 mo Plan: Mel was seen today for follow-up. Diagnoses and all orders for this visit: Need for immunization against influenza - INFLUENZA VACCINE HIGH DOSE (FLUZONE HIGH DOSE) PF 0.7 ML IM (65 YRS+) No follow-ups on file. documented in this encounter Plan of Treatment Upcoming Encounters Date Type Department Care Team (Late st Contact Info) Description 08/10/2024 16:00 EDT Appointment [facility] MRI [address] [place], [place] [phone] 08/16/2024 14:00 EDT EMILIA [facility] OBGYN Ultrasound [address] [place], [place] [address] 08/29/2024 14:00 EDT Office Visit [facility] OBGYN [address] [place], [place] [address] Ness Vilchis MD [address] [place] [address], [address] [place] [address] 08/31/2024 16:00 EDT Office Visit [facility] Orthopedics & Sport Medicine [address], [address] [place] [address] Reema Peoples, PA-C 13[address] [facility] [address] [place], [place] [phone] 09/01/2024 9:30 EDT Office Visit [facility] Rheumatology [address] [place] [phone] Lin Grider MD [address] [place] [address] [address] [place] [address] 11/08/2024 14:00 EST Office Visit [facility] Adult Hematology & Oncology [address] [place] [address] Luz Maria Peter, GABRIEL 130 [facility] [address] [place] [address] 11/22/2024 10:15 EST Office Visit [facility] Family Medicine - [place] [address] [place] [address] Clint Miramontes MD [address] [place] [phone] documented as of this encounter Visit Diagnoses Diagnosis Need for immunization against influenza- Primary Need for prophylactic vaccination and inoculation against influenza 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 ([facility]) Mixed hyperlipidemia Chronic obstructive pulmonary disease, unspecified COPD type ([facility]) Anxiety Anxiety state, unspecified documented in this encounter Orders Immunization/Injection Count Last Ordered Date First Ordered Date INFLUENZA VACCINE HIGH DOSE (FLUZONE HIGH DOSE) PF 0.7 ML IM (65 YRS+) 1 08/28/2020 documented in this encounter Care Teams Student Support Advisor Relationship Specialty Start Date End Date Clint Miramontes MD [address] [place] [phone] PCP - General 08/23/19 documented as of this encounter
--- OUTSIDE RECORDS SUMMARY | 2024-08-07 13:39 | XMS_ITS | Encounter Summary ---
Author Organization [facility] Address [address] [place] [address] Care Team Providers Care Pipe Coverer Helper Name Role Phone Clint Miramontes MD Primary Care Provider [phone] Reason for Visit * Reason Onset Date Comments Rash 10/28/2019 Encounter Details Date Type Department Care Team (Late st Contact Info) Description 10/28/2019 Telephone [facility] - [address] [address] Clint Miramontes MD [address] [place] [address] [phone] Rash Social History Tobacco Use Types Packs/Day Years [...] Telephone Encounter - Clover Lund RN - 10/28/2019 1308 EST Mel notified. Advised her to be assessed with new/worsening symptoms, and she agreed. * Telephone Encounter - Clover Lund RN - 10/28/2019 1242 EST Reports a rash X 1 week. Started out on abdomen (bright flaming redness) then spread. Perhaps a bitbetter today (not spreading anymore) but is more bothersome. Itching. Pin prick dots on shins, hives on back, and rash is on all extremities. Took Benadryl for two nights. No fever/chills, SOB, or itc shannan/swelling in mouth/throat. No recent viral illness. No new soaps, lotions, etc. Had dental workabout a month ago. Has a dx of lymphoma but states that this is not active (had a f/u with oncology which she reports went well). Reports neck stiffness. Anything to advise? * Telephone Encounter - Mynor Cobb - 10/28/2019 0910 EST Patient called to report developing a rash beginning Thursday10/23/19. Started on upper abdomen, under breast, spread to upper back and upper extremities. Patient reports the rash is beginning to be itchy (pin prick). Reports no SOB. Please call patient to discuss. documented in this encounter Plan of Treatment Upcoming Encounters Date Type Department Care Team (Late st Contact Info) Description 08/10/2024 16:00 EDT Appointment [facility] MRI [address] [place] [address] 08/16/2024 14:00 EDT EMILIA [facility] OBGYN Ultrasound [address] [place] [address] 08/29/2024 14:00 EDT Office Visit [facility] OBGYN [address] [place] [address] Ness Vilchis MD [address] [place] [address], [address] [place] [phone] 08/31/2024 16:00 EDT Office Visit [facility] Orthopedics & Sport Medicine [address], [address] [place] [address] Reema Peoples PA-C [address] [facility] [address] [place], [place] [phone] 09/01/2024 9:30 EDT Office Visit [facility] Rheumatology [address] [place] [phone] Lin Grider MD [address] [place] [address] [address] [place] [address] 11/08/2024 14:00 EST Office Visit [facility] Adult Hematology & Oncology [address] [place] [address] Luz Maria Peter NP [address] [place] [address] [address] [place] [address] 11/22/2024 10:15 EST Office Visit [facility] Family Medicine - [place] [address] [place] [address] Clint Miramontes MD [address] [place] [phone] documented as of this encounter Visit Diagnoses Not on filedocumented in this encounter Care Teams Pipe Coverer Helper Relationship Specialty Start Date End Date Clint Miramontes MD [address] [place] [phone] PCP - General 08/23/19 documented as of this encounter
--- OUTSIDE RECORDS SUMMARY | 2024-08-07 13:39 | XMS_ITS | Encounter Summary ---
Author Organization [facility] Address [address] [place] [address] Care Team Providers Care Mainframe Programmer Name Role Phone Clint Miramontes MD Primary Care Provider [phone] Reason for Visit * Reason Comments Follow-up Osteoporosis- Pt sta isacc has no symptoms. Encounter Details Date Type Department Care Team (Late st Contact Info) Description 07/23/2020 15:30 EDT Office Visit [facility] Rheumatology [address] [place] [address] Lin Grider MD [address] [facility] [address] [place] [address] Age-related osteoporosis without current pathological [...] Sign Reading Time Taken Comments Blood Pressure 108/53 07/23/2020 1525 EDT Pulse 76 07/23/2020 1525 EDT Temperature 36.5 ??C (97.7 ??F) 07/23/2020 1525 EDT Respiratory Rate - - Oxygen Saturation - - Inhaled Oxygen Concentration - - Weight 46.3 kg (102 lb) 07/23/2020 1525 EDT Height 58.5 cm (1' 11.03) 07/23/2020 1525 EDT Body Mass Index 135.2 07/23/2020 1525 EDT documented in this encounter Functional Status [...] * Patient Instructions* Lin Grider MD - 07/23/2020 15:30 EDT --Bone density in one year --Continue ibandronate monthly for another year documented in this encounter Ordered Prescriptions Prescription Sig Dispensed Refills Start Date End Da te ibandronate (BONIVA) 150 mg tabletIndications:Age-rela javier osteoporosis without current pathological fracture 1 tab(s) orally once a month 3 Tab 3 07/23/2020 07/09/2021 documented in this encounter Progress Notes * Lin Grider MD - 07/23/2020 1530 EDT [facility] Rheumatology Chief Complaint Patient presents with ??? Follow-up Osteoporosis- Pt states has no symptoms. HPI: Osteoporosis - DXA 2016: Left hip femoral neck T-score -3.1, with BMD loss of 5% in the total hip compared with prior DXA in 2010. No apparent risk factors. Started ibandronate 08/2016. Tolerating well. Has lost about 1/4 inch height. ? INTERVAL HISTORY: Mel returns for follow-up for osteoporosis. Says she is doing fine with the ibandronate. Says she thinks it bothers her at times in terms of stomach pain, but not persistent. Says she has fallen afew times, but no fractures or significant injuries. Is taking vit D, increased to 2000 unit per day after low level in March. Current Outpatient Medications Medication ??? albuterol sulfate 90 mcg/actuation aero powdr breath act w/sensor ??? aspirin 325 mg tablet ??? cholecalciferol, Vitamin D3, (VITAMIN D) 1,000 unit tablet ??? DIAZepam (VALIUM) 5 mg tablet ??? fluticasone propionate (FLOVENT HFA) [...] Onset ??? 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 Review of Systems: Review of Systems Constitutional: Negative for weight loss. Gastrointestinal: Negative for heartburn. Musculoskeletal: Negative for myalgias. Skin: Negative for rash. Follows with Dr Atwood for h/o lymphoma. Physical Examination: BP 108/53 (BP Cuff Location: Left arm) Pulse 76 Temp 36.5 ??C (97.7 ??F) Ht (!) 58.5 cm (23.03) Wt 46.3 kg (102 lb) BMI 135.20 kg/m?? JOINT EXAM: No synovitis of the joints of the hands, wrists. No pedal edema. BACK: Mild thoracic kyphosis, no evidence of scoliosis. Labs: Orders Only on 06/21/2020 Component Date Value Ref Range Status ??? Hepatitis C Ab 2010 negative Final Orders Only on 04/24/2020 Component Date Value Ref Range Status ??? Colonoscopy 03/14/2011 Final adenoma, 5y f/u Office Visit on 04/04/2020 Component Date Value Ref Range Status ??? LDH - CV 04/04/2020 459 313 - 618 U/L Final ??? Gran # 04/04/2020 3.1 1.7 - 7.0 10e3/uL Final ??? BASO # - [facility] 04/04/2020 0.02 0.0 - 0.3 10e3/uL Final ??? BASO % - [facility] 04/04/2020 0 0 - 2 % Final ??? EOS # - [facility] 04/04/2020 0.14 0.05 - 0.5 10e3/uL Final ??? EOS % - [facility] 04/04/2020 3 0 - 5 % Final ??? GRAN % - [facility] 04/04/2020 59.3 40 - 80 % Final ??? HEMATOCRIT - [facility] 04/04/2020 38.9 34.0 - 47.0 % Final ??? HEMOGLOBIN - [facility] 04/04/2020 12.9 11.2 - 15.7 g/dl Final ??? LYMPH # - CV 04/04/2020 1.5 0.9 - 2.9 10e3/ul Final ??? LYMPH% - [facility] 04/04/2020 29.8 20 - 40 % Final ??? MEAN CORPUSCULAR HGB - [facility] 04/04/2020 29.9 26 - 34 pg Final ??? MEAN CORPUSCULAR HGB CONC - [facility] 04/04/2020 33.2 31 - 36 g/dL Final ??? MEAN CELL VOLUME - [facility] 04/04/2020 90.0 77 - 100 fl Final ??? MONO # - [facility] 04/04/2020 0.4 0.3 - 0.9 10e3/uL Final ??? MONO% - [facility] 04/04/2020 7.8 0 - 12 % Final ??? PLATELET COUNT 04/04/2020 187 150 - 400 10e3/ul Final ??? RED BLOOD COUNT - [facility] 04/04/2020 4.32 3.8 - 5.2 10e6/ul Final ??? RED CELL DISTRI WIDTH - [facility] 04/04/2020 12.7 11.8 - 15.6 % Final ??? WHITE BLOOD COUNT - [facility] 04/04/2020 5.1 3.5 - 10.5 10e3/ul Final Results Only on 03/13/2020 Component Date Value Ref Range Status ??? Gran # 03/13/2020 3.7 2.2 - 8.85 10e3/uL Final ??? BASO # - [facility] 03/13/2020 0.04 0.01 - 0.11 10e/uL Final ??? BASO % - [facility] 03/13/2020 1 0 - 2 % Final ??? EOS # - [facility] 03/13/2020 0.11 0.03 - 0.61 10e3/ul Final ??? EOS % - [facility] 03/13/2020 2 0 - 5 % Final ??? GRAN % - [facility] 03/13/2020 62.7 40 - 80 % Final ??? HEMATOCRIT - [facility] 03/13/2020 39.7 34.9 - 44.4 % Final ??? HEMOGLOBIN - [facility] 03/13/2020 13.2 11.6 - 15.2 g/dl Final ??? IG# - [facility] 03/13/2020 0.01 0 - 0.7 10e3/uL Final ??? IG% - [facility] 03/13/2020 0.2 0 - 0.9 % Final ??? LYMPH # - [facility] 03/13/2020 1.6 1.09 - 3.3 10e3/ul Final ??? LYMPH% - [facility] 03/13/2020 27.1 20 - 40 % Final ??? MEAN CORPUSCULAR HGB - [facility] 03/13/2020 29.9 26.7 - 33.3 pg Final ??? MEAN CORPUSCULAR HGB CONC - [facility] 03/13/2020 33.2 32.1 - 35.9 g/dL Final ??? MEAN CELL VOLUME - [facility] 03/13/2020 90.0 81 - 98 fl Final ??? MONO # - [facility] 03/13/2020 0.4 0.1 - 0.8 10e3/uL Final ??? MONO% - [facility] 03/13/2020 7.4 0 - 12 % Final ??? PLATELET COUNT 03/13/2020 179 141 - 377 10e3/ul Final ??? RED BLOOD COUNT - [facility] 03/13/2020 4.41 3.86 - 5.04 10e3/ul Final ? ? RED CELL DISTRI WIDTH - [facility] 03/13/2020 12.3 <14.7 % Final ??? WHITE BLOOD COUNT - [facility] 03/13/2020 5.8 4.0 - 12.4 10e3/ul Final ??? VIT D, 25 HYDROXY - [facility] 03/13/2020 23.4* 30 - 100 ng/ml Final Comment: 25-Hydroxy D Total (D2+D3) Expected Values Deficient: <20 ng/ml Insufficient: 20- <30 ng/ml Sufficient: 30-100 ng/ml Potential intoxication: >100 ng/ml Office Visit on 03/12/2020 Component Date Value Ref Range Status ??? ALBUMIN - [facility] 03/13/2020 4.4 3.4 - 4.9 g/dL Final ??? ALKALINE PHOSPHATASE - [facility] 03/13/2020 49 38 - 126 U/L Final ??? BILIRUBIN TOTAL - [facility] 03/13/2020 0.8 0.2 - 1.3 mg/dL Final ??? BUN - [facility] 03/13/2020 14 10 - 26 mg/dL Final ??? CALCIUM - [facility] 03/13/2020 9.9 8.5 - 10.5 mg/dL Final ??? Chloride 03/13/2020 102 96 - 110 mmol/L Final ??? CO2 Total 03/13/2020 28 22 - 32 mEq/L Final ??? CREATININE 03/13/2020 0.62 0.52 - 1.04 mg/dL Final ? ? eGFR 03/13/2020 >60 Final Comment: Chronic renal impairment is defined as GFR <60 Multiply result by 1.210 for patients. eGFR calculated using the IDMS-traceable MDRD Study Equation. (effective 09/04/2014) ??? Anion Gap 03/13/2020 7 0 - 18 Final ??? GLUCOSE - [facility] 03/13/2020 86 70 - 100 mg/dL Final ??? Potassium 03/13/2020 4.4 3.5 - 5.0 mEq/L Final ??? Sodium 03/13/2020 137 136 - 145 mEq/L Final ??? TOTAL PROTEIN - [facility] 03/13/2020 6.9 6.2 - 8.2 gm/dL Final ??? SGOT/AST - [facility] 03/13/2020 25 14 - 36 U/L Final ??? SGPT/ALT - [facility] 03/13/2020 17 0 - 35 U/L Final ? ? Triglyceride 03/13/2020 115 <150 mg/dL Final Comment: Adult: Normal: <150 mg/dl Borderline High: 150-199 mg/dl High: 200-499 mg/dl Very High: >nr=695 ? ? Cholesterol 03/13/2020 178 <200 mg/dL Final Comment: Acceptable: <200 Borderline: 200-239 High: > or = 240 ??? Chol/HDL Ratio 03/13/2020 3.4 0 - 4.5 Final Comment: DESIRABLE RATIO IS LESS THAN 4.1 PATIENTS ARE CONSIDERED AT RISK: WOMEN RATIO >5 MEN RATIO >6 ??? FASTING? - [facility] 03/13/2020 Unknown Final ??? HDL 03/13/2020 51 40 - 60 mg/dL Final Comment: Reference Range Low: < 40 mg/dL Normal: 40-60 mg/dL High: >= 60 mg/dL ??? LDL CHOLESTEROL - [facility] 03/13/2020 104* 60 - 100 mg/dL Final ??? Non HDL Cholesterol 03/13/2020 127 mg/dl Final Comment: Desirable: Less than 130 Borderline High: 130-159 High: 160-189 Very High: Greater than or equal to 190 Assessment and Plan: 1. Age-related osteoporosis without current pathological fracture Will check DXA in one year. If BMD is stable, will likely plan a bisphosphonate holiday at that time, after completing treatment x 5 years. - XR DEXA BONE DENSITY; Future - ibandronate (BONIVA) 150 mg tablet; 1 tab(s) orally once a month Dispense: 3 Tab; Refill: 3 Follow up one year. Lin Grider MD 07/23/2020 15:41 documented in this encounter Plan of Treatment Upcoming Encounters Date Type Department Care Team (Late st Contact Info) Description 08/10/2024 16:00 EDT Appointment [facility] [place] [address] 08/16/2024 14:00 EDT EMILIA [facility] OBGYN Ultrasound [address] [place] [phone] 08/29/2024 14:00 EDT Office Visit [facility] OBGYN [address] [place] [address] Ness Vilchis MD [address] [place] [address], [address] [place] [phone] 08/31/2024 16:00 EDT Office Visit [facility] Orthopedics & Sport Medicine [address], [address] [place] [address] Reema Peoples PA-C [address] [facility] [address] [place] [address] 09/01/2024 9:30 EDT Office Visit [facility] Rheumatology [address] [place] [phone] Lni Grider MD [address] [place] [address] [address] [place] [address] 11/08/2024 14:00 EST Office Visit [facility] Adult Hematology & Oncology [address] [place] [address] Luz Maria Peter NP [address] [place] [address] [address] [place] [address] 11/22/2024 10:15 EST Office Visit [facility] Family Medicine - [place] [address] [place] [address] Clint Miramontes MD [address] [place] [phone] documented as of this encounter Visit Diagnoses Diagnosis Age-related osteoporosis without current pathological fracture- Primary Senile osteoporosis documented in this encounter Discontinued Medications Medication Sig Discontinue Reason Start Date End Da te ibandronate (BONIVA) 150 mg tablet 1 tab(s) orally once a month Reorder 07/23/2020 documented as of this encounter Care Teams Mainframe Programmer Relationship Specialty Start Date End Date Clint Miramontes MD [address] [place] [phone] PCP - General 08/23/19 documented as of this encounter
--- OUTSIDE RECORDS SUMMARY | 2024-08-07 13:39 | XMS_ITS | Encounter Summary ---
Author Organization [facility] Address [address] [place] [address] Care Team Providers Care Audio Visual Design Engineer Name Role Phone Clint Miramontes MD Primary Care Provider [phone] Reason for Visit * Reason Comments Follow-up Encounter Details Date Type Department Care Team (Late st Contact Info) Description 04/04/2020 14:30 EDT Office Visit [facility] Adult Hematology & Oncology [address] [place] [address] [place] [address] [facility] [address] [place] [phone] (Fax) Lymphoma of lymph nodes of head [...] 14:31 EDT documented as of this encounter Last Filed Vital Signs Vital Sign Reading Time Taken Comments Blood Pressure 130/74 04/04/2020 1438 EDT Pulse 76 04/04/2020 1438 EDT Temperature - - Respiratory Rate - - Oxygen Saturation 98% 04/04/2020 1438 EDT Inhaled Oxygen Concentration - - Weight 47.2 kg (104 lb) 04/04/2020 1438 EDT Height - - Body Mass Index 21.37 03/12/2020 1451 EDT documented in this encounter Functional Status [...] Progress Notes * Sheyla Atwood MD - 04/04/2020 1430 EDT Patient Active Problem List Diagnosis ??? 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 She is currently helping her motherwho is 95 years old and going through cancer treatment. Denies any recent hospitalizations. Review of Systems: [...] Last attempt to quit: 07/03/1982 Years since quittin.7 ??? Smokeless tobacco: [...] 2,000 Units by mouth daily. Taking ??? DIAZepam (VALIUM) 5 mg tablet 1 tab(s) orally during travel as needed Not Taking ??? fluticasone propionate (FLOVENT HFA) 110 mcg/actuation inhaler Inhale 2 Puffs as directed every12 hours. 3 Inhaler 3 Taking ??? ibandronate (BONIVA) 150 mg tablet 1 tab(s) orally once a month Taking ??? inhalational spacing device (E-Z SPACER) Inhale 1 Device as directed 2 times daily. For use with Flovent inhaler. Dx: J44.9. 1 Device 0 Taking ??? LORazepam (ATIVAN) 1 mg tablet Take 1 Tab by mouth at bedtime. Daily Max: 1 mg 30 Tab 2 Taking ??? lovastatin (MEVACOR) 40 mg tablet 2 tab(s) orally once a day 180 Tab 3 Taking No current facility-administered medications for this visit. Vitals: 04/04/20 1438 BP: 130/74 Pulse: 76 SpO2: 98% Weight: 47.2 kg (104 lb) Wt Readings from Last 3 Encounters: 04/04/20 47.2 kg (104 lb) 03/12/20 47.3 kg (104 lb 3.2 oz) 10/06/19 48.5 kg (107 lb) Physical Exam: Physical Exam Constitutional: She is oriented to person, place, and time. HENT: Head: Normocephalic and atraumatic. Eyes: EOM are normal. Neck: Normal range of motion. Neck supple. Cardiovascular: Regular rhythm. Pulmonary/Chest: Effort normal and breath sounds normal. Abdominal: Soft. There is no tenderness. Lymphadenopathy: She has no cervical adenopathy. She has axillary adenopathy. Left axillary: Lateral (Approximately 1 cm.) adenopathy present. Right: No inguinal and no supraclavicular adenopathy [...] in 6 months. Sheyla Atwood MD Hematology/Oncology [facility] * Pk Shelton MA - 04/04/2020 1430 EDT Suspicion of Abuse: no - If yes, please document evidence: - Assessed on: 04/04/20 14:31 - Assessed by: PK SHELTON MA Procedures: - Venipuncture Performed by: PK SHELTON MA Site Collected: Left Antecubital Space Volume Withdrawn: STT: 8.5ml and Lavender Top: 3.0ml Patient Response:Patient tolerated venipuncture well and Butterfly used Number of attempts: 1 Collected on: 04/04/20 14:47 Ordering Provider:Sheyla Atwood MD Patient denies travel outside of [place] in past 2 weeks documented in this encounter Plan of Treatment Upcoming Encounters Date Type Department Care Team (Late st Contact Info) Description 08/10/2024 16:00 EDT Appointment [facility] MRI [address] [place], [place] [phone] 08/16/2024 14:00 EDT EMILIA [facility] OBGYN Ultrasound [address] [place] [address] 08/29/2024 14:00 EDT Office Visit [facility] OBGYN [address] [place], [place] [phone] Ness Vilchis MD [address] [facility], [address] [place] [address] 08/31/2024 16:00 EDT Office Visit [facility] Orthopedics & Sport Medicine [address], [address] [place] [address] Reema Peoples PA-C [address] [facility] [address] [place] [address] 09/01/2024 9:30 EDT Office Visit [facility] Rheumatology [address] [facility], [place] [phone] Lin Grider MD 130 [facility] [address] [place] [address] 11/08/2024 14:00 EST Office Visit [facility] Adult Hematology & Oncology [address] [place] [address], [place] [address] Luz Maria Peter NP 130 [facility], [facility] [address] [place] [address] 11/22/2024 10:15 EST Office Visit [facility] Family Medicine - [place] [address] [place], [place] [phone] Clint Miramontes MD [address] [place] [phone] documented as of this encounter Procedures Procedure Name Priority Date/Time Associated Diagnosis Comments LDH Routine 04/04/2020 15:18 EDT 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0 10e3/uL 04/04/2020 16:46 EDT [facility] BASO # - [facility] 0.02 0.0 - 0.3 10e3/uL 04/04/2020 16:46 EDT [facility] BASO % - [facility] 0 0 - 2 % 04/04/2020 16:46 EDT [facility] EOS # - [facility] 0.14 0.05 - 0.5 10e3/uL 04/04/2020 16:46 EDT [facility] EOS % - [facility] 3 0 - 5 % 04/04/2020 16:46 EDT [facility] GRAN % - [facility] 59.3 40 - 80 % [facility] 38.9 34.0 - 47.0 % 04/04/2020 16:46 [facility] HEMOGLOBIN - [facility] 12.9 11.2 - 15.7 g/dl 04/04/2020 16:46 [facility] LYMPH # - [facility] 1.5 0.9 - 2.9 10e3/ul 04/04/2020 16:46 EDT [facility] LYMPH% - [facility] 29.8 20 - 40 % 04/04/2020 16:46 [facility] MEAN CORPUSCULAR HGB - [facility] 29.9 26 - 34 pg 04/04/2020 16:46 [facility] MEAN CORPUSCULAR HGB CONC - [facility] 33.2 31 - 36 g/dL [facility]/04[facility]2020 [facility]UME - [facility] 90.0 77 - 100 fl 04/04/2020 16:46 EDT [facility] MONO # - [facility] 0.4 0.3 - 0.9 10e3/uL 04/04/2020 16:46 EDT [facility] MONO% - [facility] 7.8 0 - 12 % 04/04/2020 16:46 EDT [facility] PLATELET COUNT 187 150 - 400 10e3/ul 04/04/2020 16:46 EDT [facility] RED BLOOD COUNT - [facility] 4.32 3.8 - 5.2 10e6/ul 04/04/2020 16:46 EDT [facility] RED CELL DISTRI WIDTH - [facility] 12.7 11.8 - 15.6 % 04/04/2020 16:46 EDT [facility] WHITE BLOOD COUNT - [facility] 5.1 3.5 - 10.5 10e3/ul 04/04/2020 16:46 EDT [facility] 04/04/2020 14:4 7 EDT 04/04/2020 14:47 EDT Sheyla Atwood MD CHEMISTRY & BLOOD GA S ORDERABLES [facility] documented in this encounter Visit Diagnoses Diagnosis 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
--- OUTSIDE RECORDS SUMMARY | 2024-08-07 13:39 | XMS_ITS | Encounter Summary ---
Author Organization [facility] Address [address] [place] [address] Care Team Providers Care Hogshead Dumper Name Role Phone Clint Miramontes MD Primary Care Provider [phone] Reason for Visit * Reason Onset Date Comments Medications Refill 08/27/2020 Lorzepam refi ll Encounter Details Date Type Department Care Team (Late st Contact Info) Description 08/27/2020 Refill [facility] - [address] [address] Candace Beverly, ATTILA Medications Refill (Lorzepam refill ) Social History Tobacco Use Types Packs/Day Years [...] encounter Miscellaneous Notes * Telephone Encounter - Candace Beverly RN - 08/27/2020 1020 EDT Patient left request for refill on Lorazepam but doesn't look necessary as it was last filled earlyOctober with three refills. I contacted her and she will check with her pharmacy. documented in this encounter Plan of Treatment Upcoming Encounters Date Type Department Care Team (Late st Contact Info) Description 08/10/2024 16:00 EDT Appointment [facility] MRI [address] [place], [place] [id number] 08/16/2024 14:00 EDT EMILIA [facility] OBGYN Ultrasound [address] [place] [phone] 08/29/2024 14:00 EDT Office Visit [facility] OBGYN [address] [place] [address] [phone] Ness Vilchis MD [address] [place], [place] [address]A, [address] [place] [phone] 08/31/2024 16:00 EDT Office Visit [facility] Orthopedics & Sport Medicine [address], [address] [place], [place] [phone] Reema Peoples PA-C [address] [facility] [address] [place], [place] [address] 09/01/2024 9:30 EDT Office Visit [facility] Rheumatology [address] [place] [phone] Lin Grider MD [address] [place] [address] M[address] [place] [phone] 11/08/2024 14:00 EST Office Visit [facility] Adult Hematology & Oncology [facility] [place] [address] Luz Maria Peter, GABRIEL [address] [facility] [address] [place] [phone] 11/22/2024 10:15 EST Office Visit [facility] Family Medicine - [place] [address] [place] [phone] Clint Miramontes MD [address] [place] [phone] documented as of this encounter Visit Diagnoses Not on filedocumented in this encounter Care Teams Hogshead Dumper Relationship Specialty Start Date End Date Clint Miramontes MD [address] [place] [phone] PCP - General 08/23/19 documented as of this encounter
--- OUTSIDE RECORDS SUMMARY | 2024-08-07 13:39 | XMS_ITS | Encounter Summary ---
Author Organization [facility] Address [address] [place] [address] Care Team Providers Care Methods Examiner Name Role Phone Clint Miramontes MD Primary Care Provider [phone] Reason for Visit * Reason Onset Date Comments Medications Refill 08/07/2020 Encounter Details Date Type Department Care Team (Late st Contact Info) Description 08/07/2020 Refill [facility] [place] [facility] [address] [place] [phone] Clint Miramontes MD [address] [place] [phone] Medications Refill Social History Tobacco Use Types [...] Daily Max: 1 mg 30 Tab 3 08/07/2020 12/12/2020 documented in this encounter Miscellaneous Notes * Telephone Encounter - Bobbi Brown - 08/07/2020 1529 EDT Spoke with patient scheduled in person visit with JW on 08/28 as she would like to get her flu shotif we have it in stock as well. Is aware she isn't due for refill yet but wanted to ensure she could refill when she is out. * Telephone Encounter - Clover Lund RN - 08/07/2020 1504 EDT Last seen 03/12/20. Due for an anxiety follow up 4-6 months from then. Please reach out to schedule and then send this TE directly to Dr. Miramontes for the rx. Thank you. Per VP, last filled 07/26/20 for a 30 supply, so she isn't due until later this month. * Telephone Encounter - Bobbi Brown - 08/07/2020 1406 EDT Patient called requesting refill of Lorazepam be sent to [facility]. documented in this encounter Plan of Treatment Upcoming Encounters Date Type Department Care Team (Late st Contact Info) Description 08/10/2024 16:00 EDT Appointment [facility] MRI [address] [place] [address] 08/16/2024 14:00 EDT EMILIA [facility] OBGYN Ultrasound [address] [place] [address] 08/29/2024 14:00 EDT Office Visit [facility] OBGYN [address] [place] [address] Ness Vilchis MD 130 [facility], [address] [place] [phone] 08/31/2024 16:00 EDT Office Visit [facility] Orthopedics & Sport Medicine [address], [address] [place] [address] Reema Peoples PA-C 13[address] [facility] [address] [place], [place] [phone] 09/01/2024 9:30 EDT Office Visit [facility] Rheumatology [address] [place], [place] [phone] Lin Grider MD [address] [place] [address] [address] [place] [address] 11/08/2024 14:00 EST Office Visit [facility] Adult Hematology & Oncology [address] [place] [phone] Luz Maria Peter NP [address] [place] [address] [address] [place] [address] 11/22/2024 10:15 EST Office Visit [facility] Family Medicine - [place] [address] [place] [address] Clint Miramontes MD [address] [place] [phone] documented as of this encounter Visit Diagnoses Not on filedocumented in this encounter Discontinued Medications Medication Sig Discontinue Reason Start Date End Da te LORazepam (ATIVAN) 1 mg tablet Take 1 Tab by mouth at bedtime. Daily Max: 1 mg Reorder 04/26/2020 08/07/2020 documented as of this encounter Care Teams Methods Examiner Relationship Specialty Start Date End Date Clint Miramontes MD [address] [place] [phone] PCP - General 08/23/19 documented as of this encounter
--- OUTSIDE RECORDS SUMMARY | 2024-08-07 13:39 | XMS_ITS | Encounter Summary ---
Author Organization [facility] Address [address] [place] [address] Care Team Providers Care Branch Chief Name Role Phone Edison Miramontes DO Primary Care Provider [phone] Clint Miramontes MD Primary Care Provider [phone] Encounter Details Date Type Department Care Team (Late st Contact Info) Description 08/15/2019 Results Only [facility] - [facility] - [place] [address] [place] [address] Clint Miramontes MD [address] [place] [phone] Social History Tobacco Use Types Packs/Day [...] [facility] MRI [address] [place] [address] 08/16/2024 14:00 EDT EMILIA [facility] OBGYN Ultrasound [address] [place] [address] 08/29/2024 14:00 EDT Office Visit [facility] OBGYN [address] [place] [address] Ness Vilchis MD [address] [place] [address], [address] [place] [phone] 08/31/2024 16:00 EDT Office Visit [facility] Orthopedics & Sport Medicine [address], [address] [place], [place] [phone] Reema Peoples PA-C [address] [facility] [address] [place], [place] [phone] 09/01/2024 9:30 EDT Office Visit [facility] Rheumatology [address] [place] [phone] Lin Grider MD [address] [place] [address] [address] [place] [phone] 11/08/2024 14:00 EST Office Visit [facility] Adult Hematology & Oncology [address] [place] [phone] Luz Maria Peter NP [address] [place] [address] [address] [place] [phone] 11/22/2024 10:15 EST Office Visit [facility] Family Medicine - [address] [address] Clint Miramontes MD [address] [place] [phone] documented as of this encounter Procedures Procedure Name Priority Date/Time Associated Diagnosis Comments COMPREHENSIVE METABOLIC PANEL (CMP) Routine 08/15/2019 7:59 EDT documented in this encounter Results * COMPREHENSIVE METABOLIC PANEL (CMP) (08/15/2019 7:59 EDT) Albumin % 4.1 3.4 - 4.9 g/dL 08/15/2019 9:57 [facility] ALKALINE PHOSPHATASE - [facility] 47 38 - 126 U/L 08/15/2019 9:57 [facility] BILIRUBIN TOTAL 0.6 0.2 - 1.3 mg/dL 08/15/2019 9:57 [facility] BUN - [facility] 15 10 - 26 mg/dL 08/15/2019 9:57 [facility] CALCIUM - [facility] 9.2 8.5 - 10.5 mg/dL 08/15/2019 9:57 [facility] Chloride 102 96 - 110 mmol/L 08/15/2019 9:57 [facility] CO2 Total 30 22 - 32 mEq/L 08/15/2019 9:57 [facility] CREATININE 0.63 0.52 - 1.04 mg/dL 08/15/2019 9:57 [facility] eGFR >60 08/15/2019 9:57 [facility] Comment: Chronic renal impairment is defined as GFR <60 Multiply result by 1.210 for patients. eGFR calculated using the IDMS-traceable MDRD Study Equation. ??(effective 09/04/2014) Anion Gap 9 0 - 18 08/15/2019 9:57 [facility] GLUCOSE - [facility] 99 70 - 100 mg/dL 08/15/2019 9:57 [facility] Potassium 5.0 3.5 - 5.0 mEq/L 08/15/2019 9:57 EDT [facility] Sodium 141 136 - 145 mEq/L 08/15/2019 9:57 EDT [facility] TOTAL PROTEIN - [facility] 6.8 6.2 - 8.2 gm/dL 08/15/2019 9:57 EDT [facility] SGOT/AST - [facility] 25 14 - 36 U/L 08/15/2019 9:57 EDT [facility] SGPT/ALT - [facility] 24 9 - 52 U/L 9 9:57 EDT [facility] 08/15/2019 7:59 EDT 08/15/2019 7:59 EDT Narrative [facility] - 08/15/2019 9:57 EDT Does PT Have a Latex Allergy? NO Clint Miramontes MD CHEMISTRY & BLOOD GA S ORDERABLES [facility] documented in this encounter Visit Diagnoses Not on filedocumented in this encounter Care Teams Branch Chief Relationship Specialty Start Date End Date Edison Miramontes DO PCP - General 05/14/17 08/22/19 Clint Miramontes MD [address] [place] [phone] PCP - General 08/23/19 documented as of this encounter
--- OUTSIDE RECORDS SUMMARY | 2024-08-07 13:39 | XMS_ITS | Encounter Summary ---
Author Organization [facility] Address [address] [place] [address] Care Team Providers Care Casting Operator Name Role Phone Clint Miramontes MD Primary Care Provider [phone] Reason for Visit * Reason Comments Follow-up 6 months Encounter Details Date Type Department Care Team (Late st Contact Info) Description 10/11/2020 14:30 EST Office Visit [facility] Adult Hematology & Oncology [address] [place] [address] [place] [address] [facility] [address] [place] [phone] (Fax) Lymphoma of lymph nodes of head [...] Sign Reading Time Taken Comments Blood Pressure 134/74 10/11/2020 1426 EST Pulse 94 10/11/2020 1426 EST Temperature - - Respiratory Rate - - Oxygen Saturation 97% 10/11/2020 1426 EST Inhaled Oxygen Concentration - - Weight 47.2 kg (104 lb) 10/11/2020 1426 EST Height - - Body Mass Index 21.37 08/28/2020 1609 EDT documented in this encounter Functional Status [...] as of this encounter Progress Notes * Pk Shelton MA - 10/11/2020 1430 EST Suspicion of Abuse: no - If yes, please document evidence: - Assessed on: 10/11/20 14:26 - Assessed by: PK SHELTON MA Procedures: - Venipuncture Performed by: PK SHELTON MA Site Collected: Right Antecubital Space Volume Withdrawn: STT: 8.5ml and Lavender Top: 3.0ml Patient Response:Patient tolerated venipuncture well and Butterfly used Number of attempts: 2 Collected on: 10/11/20 14:43 Ordering Provider:Sheyla Atwood MD * Sheyla Atwood MD - 10/11/2020 1430 EST Patient Active Problem List Diagnosis ??? [...] night sweats or unintentional weight loss. Denies any recent hospitalizations. She injured her right foot recently and reports some swelling and pain. Denies any difficulty walking. States that her mother who was suffering from cancer recently . She pursued act 39. Review of Systems: Review of Systems Constitutional: [...] years: 15.00 Quit date: 07/03/1982 Years since quittin.3 ??? Smokeless tobacco: Never Used ??? Tobacco [...] Anxiety. Daily Max:1 mg 30 Tab 3 Taking ??? lovastatin (MEVACOR) 40 mg tablet 2 tab(s) orally once a day 180 Tab 3 Taking No current facility-administered medications for this visit. Vitals: 10/11/20 1426 BP: 134/74 Pulse: 94 SpO2: 97% Weight: 47.2 kg (104 lb) Wt Readings from Last 3 Encounters: 10/11/20 47.2 kg (104 lb) 07/23/20 46.3 kg (102 lb) 04/04/20 47.2 kg (104 lb) Physical Exam: Physical Exam Constitutional: She is oriented to person, place, and time. HENT: Head: Normocephalic and atraumatic. Eyes: EOM are normal. Neck: Normal range of motion. Neck supple. Cardiovascular: Regular rhythm. Pulmonary/Chest: Effort normal and breath sounds normal. Abdominal: Soft. There is no abdominal tenderness. Lymphadenopathy: She has no cervical adenopathy. She has axillary adenopathy. Right axillary: Lateral (Subcentimeter palpable high axillary lymph node) adenopathy present. Left axillary: Lateral (Approximately 1 cm.) adenopathy present. No inguinal adenopathy noted on the right [...] 1.5 1.09 - 3.3 10e3/ul LYMPH% - CV 31.4 20 - 40 % MEAN CORPUSCULAR HGB - CV 29.6 26.7 - 33.3 pg MEAN CORPUSCULAR HGB CONC - CV 32.6 32.1 - 35.9 g/dL MEAN CELL VOLUME - CV 90.8 81 - 98 fl MONO # - CV 0.4 0.1 - 0.8 10e3/uL MONO% - CV 8.4 0 - 12 % [place] [facility] 221 141 - 377 10e3/ul RED BLOOD COUNT - CV 4.46 3.86 - 5.04 10e3/ul RED CELL DISTRI WIDTH - CV 12.6 <14.7 % WHITE BLOOD COUNT - CV 4.7 4.0 - 12.4 10e3/ul Assessment & Plan Marginal zone lymphoma. Clinically she is doing well with no evidence of B symptoms or bulky lymphadenopathy. Blood counts reviewed and wnl. No evidence of palpable bulky adenopathy. Will continue tofollow her on observation. Plan: 1. Return for follow-up in 6 months. Sheyla Atwood MD Hematology/Oncology [facility] documented in this encounter Plan of Treatment Upcoming Encounters Date Type Department Care Team (Late st Contact Info) Description 08/10/2024 16:00 EDT Appointment [facility] MRI [address] [place] [address] 08/16/2024 14:00 EDT EMILIA [facility] OBGYN Ultrasound [address] [place] [address] 08/29/2024 14:00 EDT Office Visit [facility] OBGYN [address] [place] [address] Ness Vilchis MD 130 [facility], [address] [place] [address] 08/31/2024 16:00 EDT Office Visit [facility] Orthopedics & Sport Medicine [address], [address] [place] [address] Reema Peoples PA-C 13[address] [facility] [address] [place], [place] [phone] 09/01/2024 9:30 EDT Office Visit [facility] Rheumatology [address] [facility], [place] [phone] Lin Grider MD 130 [facility] [address] [place] [phone] 11/08/2024 14:00 EST Office Visit [facility] Adult Hematology & Oncology [address] [place] [address], [place] [address] Luz Maria Peter NP 130 [facility] [address] [place] [address] 11/22/2024 10:15 EST Office Visit [facility] Family Medicine - [place] [address] [place] [address] Clint Miramontes MD [address] [place] [phone] documented as of this encounter Procedures Procedure Name Priority Date/Time Associated Diagnosis Comments CBC W/PLT & DIFF,POINT OF C[place] [facility] Routine 10/11/2020 14:43 EST 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 ([facility]) documented in this encounter Results * CBC W/PLT & DIFF,POINT OF CARE [place] [facility] (10/11/2020 14:43 EST) ABSOLUTE NEUTROPHIL COUN - [facility] 2.9 1.7 - 7.0 10e3/uL 10/11/2020 14:48 EST [facility] BASO # - [facility] 0.03 0.0 - 0.3 10e3/uL 10/11/2020 14:48 EST [facility] BASO % - [facility] 1 0 - 2 % 10/11/2020 14:48 [facility] EOS # - [facility] 0.19 0.05 - 0.5 10e3/uL 10/11/2020 14:48 [facility] EOS % - [facility] 4 0 - 5 % 10/11/2020 14:48 [facility] GRAN % - [facility] 53.7 40 - 80 % 10/11/2020 14:48 [facility] HEMATOCRIT - [facility] 35.9 34.0 - 47.0 % 10/11/2020 14:48 [facility] HEMOGLOBIN - CV 12.1 11.2 - 15.7 g/dl 10/11/2020 14:48 [facility] LYMPH # - [facility] 1.7 0.9 - 2.9 10e3/ul 10/11/2020 14:48 [facility] LYMPH% - [facility] 32.5 20 - 40 % 10/11/2020 14:48 [facility] MEAN CORPUSCULAR HGB - CV 30.3 26 - 34 pg 10/11/2020 14:48 [facility] MEAN CORPUSCULAR HGB CONC - [facility] 33.7 31 - 36 g/dL 10/11/2020 14:48 [facility] MEAN CELL VOLUME - CV 90.0 77 - 100 fl 10/11/2020 14:48 [facility] MONO # - [facility] 0.5 0.3 - 0.9 10e3/uL 10/11/2020 14:48 [facility] MONO% - [facility] 9.6 0 - 12 % 10/11/2020 14:48 [facility] PLATELET COUNT 206 150 - 400 10e3/ul 10/11/2020 14:48 [facility] RED BLOOD COUNT - CV 3.99 3.8 - 5.2 10e6/ul 10/11/2020 14:48 [facility] RED CELL DISTRI WIDTH - [facility] 12.5 11.8 - 15.6 % 10/11/2020 14:48 [facility] WHITE BLOOD COUNT - [facility] 5.3 3.5 - 10.5 10e3/ul 10/11/2020 14:48 EST [facility] 10/11/2020 14:4 3 EST 10/11/2020 14:43 EST Sheyla Atwood MD CHEMISTRY & BLOOD GA S ORDERABLES [facility] [address] [place] [address] documented in this encounter Visit Diagnoses Diagnosis 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)- Primary documented in this encounter Care Teams Casting Operator Relationship Specialty Start Date End Date Clint Miramontes MD [address] [place] [phone] PCP - General 08/23/19 documented as of this encounter
--- OUTSIDE RECORDS SUMMARY | 2024-08-07 13:39 | XMS_ITS | Encounter Summary ---
Author Organization [facility] Address [address] [place] [address] Care Team Providers Care Crane Crew Supervisor Name Role Phone Clint Miramontes MD Primary Care Provider [phone] Reason for Visit * Reason Comments Follow-up Encounter Details Date Type Department Care Team (Late st Contact Info) Description 03/12/2020 15:00 EDT Office Visit [facility] Family Medicine [address] [address] Clint Miramontes MD [address] [place] [phone] 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 ([facility]) (Primary Dx); Mixed hyperlipidemia; Osteoporosis, unspecified osteoporosis type, unspecified pathological fracture presence; Vitamin D deficiency; Chronic obstructive pulmonary disease, unspecified COPD type ([facility]) Social History Tobacco Use Types Packs/Day Years [...] Reading Time Taken Comments Blood Pressure 100/62 03/12/2020 1451 EDT Pulse 84 03/12/2020 1451 EDT Temperature 36.9 ??C (98.5 ??F) 03/12/2020 1451 EDT Respiratory Rate 17 03/12/2020 1451 EDT Oxygen Saturation - - Inhaled Oxygen Concentration - - Weight 47.3 kg (104 lb 3.2 oz) 03/12/2020 1451 E DT Height 148.6 cm (4' 10.5) 03/12/2020 1451 EDT Body Mass Index 21.41 03/12/2020 1451 EDT documented in this encounter [...] Progress Notes * Clint Miramontes MD - 03/12/2020 1500 EDT Subjective: Patient ID: Mel Ramirez is an 69 y.o. female. No chief complaint on file. HPI Lipids - managed with lipid medications. No side effects. COPD - using MDI albuterol and Flovent. No chronic cough. No chest pains. No shortness of breath. Anxiety - sparing use of lorazapam. No SI/HI. No panic attacks. 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 Seeing Dr. Ricci routinely. Patient Active Problem List [...] tablet Take 1,000 Units by mouth daily. ??? DIAZepam (VALIUM) 5 mg tablet 1 tab(s) orally during travel as needed ??? fluticasone propionate (FLOVENT HFA) 110 mcg/actuation inhaler Inhale 2 Puffs as directed every12 hours. 3 Inhaler 3 ??? ibandronate (BONIVA) 150 mg tablet 1 tab(s) orally once a month ??? inhalational spacing device (E-Z SPACER) Inhale 1 Device as directed 2 times daily. For use with Flovent inhaler. Dx: J44.9. 1 Device 0 ??? LORazepam (ATIVAN) 1 mg tablet Take 1 Tab by mouth at bedtime. Daily Max: 1 mg 30 Tab 2 ??? lovastatin (MEVACOR) 40 mg tablet 2 [...] Frequency: 5.0 times per week Types: Marijuana Lab Results Component Value Date CHOL 194 08/15/2019 CHOL 174 09/16/2018 CHOL 222 (H) 03/11/2018 HDL 51 08/15/2019 HDL 56 09/16/2018 HDL 52 03/11/2018 TRIG 81 08/15/2019 TRIG 149 09/16/2018 TRIG 137 03/11/2018 CHOLHDL 3.8 08/15/2019 CHOLHDL 3.1 09/16/2018 CHOLHDL 4.2 03/11/2018 Lab Results Component Value Date NA 141 08/15/2019 K 5.0 08/15/2019 CL 102 08/15/2019 CO2 30 08/15/2019 Lab Results Component Value Date CREATININE 0.63 08/15/2019 ROS - See HPI Objective: There were no vitals taken for this visit. Physical Exam HENT: EOMI, PERRLA Nose: Nose [...] this encounter. No follow-ups on file. * Etka Hemphill, ATTILA - 03/12/2020 1500 EDT VPMS checked, Ativan last filled 03/02/20 #30, 30 days CSA updated today Venipuncture completed, tolerated procedure well documented in this encounter Plan of Treatment Upcoming Encounters Date Type Department Care Team (Late st Contact Info) Description 08/10/2024 16:00 EDT Appointment [facility] MRI [address] [place] [address] 08/16/2024 14:00 EDT EMILIA [facility] OBG[facility] Ultrasound [address] [place] [address] 08/29/2024 14:00 EDT Office Visit [facility] OBGYN [address] [place] [address] Ness Vilchis MD [address] [facility], [address] [place] [address] 08/31/2024 16:00 EDT Office Visit [facility] Orthopedics & Sport Medicine [address] [place], [place] [phone] Reema Peoples PA-C [address] [facility] [address] [place], [place] [address] 09/01/2024 9:30 EDT Office Visit [facility] Rheumatology [address] [place] [phone] Lin Grider MD [address] [facility] [address] [place] [address] 11/08/2024 14:00 EST Office Visit [facility] Adult Hematology & Oncology [address] [place] [address], [place] [phone] Luz Maria Peter, GABRIEL [address] [facility] [address] [place] [address] 11/22/2024 10:15 EST Office Visit [facility] - [place] [address] [place] [address] Clint Miramontes MD [address] [place] [phone] Scheduled Orders Name Type Priority Associated Diagnoses Orde r Schedule COMPLETE BLOOD COUNT Lab Routine 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) Ordered: 03/12/2020 VITAMIN D (25,[place]) Lab Routine Vitamin D deficiency Ordered: 03/12/2020 documented as of this encounter Procedures Procedure Name Priority Date/Time Associated Diagnosis Comments LIPID PROFILE (INCLUDES CHOLESTEROL, TRIGLYCERIDES, HDL, LDL) Routine 03/13/2020 18:35 EDT Mixed hyperlipidemia COMPREHENSIVE METABOLIC PANEL (CMP) Routine 03/13/2020 18:35 EDT 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) Mixed hyperlipidemia documented in this encounter Results * (ABNORMAL) LIPID PROFILE (INCLUDES CHOLESTEROL, TRIGLYCERIDES, HDL, LDL) (03/13/2020 18:35 EDT) Triglyceride 115 <150 mg/dL 03/13/2020 18:51 [facility] Comment: Adult: Normal: ?<150 mg/dl ? Borderline High: 150-199 mg/dl ? High: ?200-499 mg/dl ? Very High: >hl=378 Cholesterol 178 <200 mg/dL 03/13/2020 18:51 [facility] Comment: Acceptable: ??<200 Borderline: ??200-239 High: ?> or = 240 Chol/HDL Ratio 3.4 0 - 4.5 03/13/2020 18:51 [facility] Comment: DESIRABLE RATIO IS LESS THAN 4.1 PATIENTS ARE CONSIDERED AT RISK: WOMEN RATIO >5 MEN RATIO >6 FASTING? - [facility] Unknown 0 18:36 [facility] HDL 51 40 - 60 mg/dL 03/13/2020 18:51 [facility] Comment: ?? Reference Range Low: ? < 40 ??mg/dL Normal: ??40-60 mg/dL High: ?>= 60 mg/dL LDL CHOLESTEROL - [facility] 104(H) 60 - 100 mg/dL 03/13/2020 18:51 [facility] Non HDL Cholesterol 127 mg/dl 03/13/2020 18:51 [facility] Comment: Desirable: ?Less than 130 Borderline High: ??130-159 High: ? 160-189 Very High: ?Greater than or equal to 190 Blood VENOUS BLOOD / Unknown 03/13/2020 18:35 EDT 03/13/2020 18:35 EDT Clint Miramotnes MD CHEMISTRY & BLOOD GA S ORDERABLES [facility] * COMPREHENSIVE METABOLIC PANEL (CMP) (03/13/2020 18:35 EDT) Albumin % 4.4 3.4 - 4.9 g/dL 03/13/2020 18:51 [facility] ALKALINE PHOSPHATASE - [facility] 49 38 - 126 U/L 03/13/2020 18:51 [facility] BILIRUBIN TOTAL 0.8 0.2 - 1.3 mg/dL 03/13/2020 18:51 [facility] BUN - [facility] 14 10 - 26 mg/dL 03/13/2020 18:51 [facility] CALCIUM - [facility] 9.9 8.5 - 10.5 mg/dL 03/13/2020 18:51 [facility] Chloride 102 96 - 110 mmol/L 03/13/2020 18:51 [facility] CO2 Total 28 22 - 32 mEq/L 03/13/2020 18:51 [facility] CREATININE 0.62 0.52 - 1.04 mg/dL 03/13/2020 18:51 [facility] eGFR >60 03/13/2020 18:51 [facility] Comment: Chronic renal impairment is defined as GFR <60 Multiply result by 1.210 for patients. eGFR calculated using the IDMS-traceable MDRD Study Equation. ??(effective 09/04/2014) Anion Gap 7 0 - 18 03/13/2020 18:51 [facility] GLUCOSE - [facility] 86 70 - 100 mg/dL 03/13/2020 18:51 [facility] Potassium 4.4 3.5 - 5.0 mEq/L 03/13/2020 18:51 [facility] Sodium 137 136 - 145 mEq/L 03/13/2020 18:51 [facility] TOTAL PROTEIN - [facility] 6.9 6.2 - 8.2 gm/dL 03/13/2020 18:51 EDT [facility] SGOT/AST - [facility] 25 14 - 36 U/L 03/13/2020 18:51 EDT [facility] SGPT/ALT - [facility] 17 0 - 35 U/L 0 18:51 EDT [facility] Blood VENOUS BLOOD / Unknown 03/13/2020 18:35 EDT 03/13/2020 18:35 EDT Clint Miramontes MD CHEMISTRY & BLOOD GA S ORDERABLES [facility] documented in this encounter Visit Diagnoses Diagnosis 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 ([facility])- Primary Mixed hyperlipidemia Osteoporosis, unspecified osteoporosis type, unspecified pathological fracture presence Vitamin D deficiency Unspecified vitamin D deficiency Chronic obstructive pulmonary disease, unspecified COPD type ([facility]) documented in this encounter Care Teams Crane Crew Supervisor Relationship Specialty Start Date End Date Clint Miramontes MD [address] [place] [phone] PCP - General 08/23/19 documented as of this encounter
--- OUTSIDE RECORDS SUMMARY | 2024-08-07 13:39 | XMS_ITS | Encounter Summary ---
Author Organization [facility] Address [address] [place] [address] Care Team Providers Care Hydroelectric Station Chief Name Role Phone Clint Miramontes MD Primary Care Provider [phone] Encounter Details Date Type Department Care Team (Late st Contact Info) Description 03/20/2021 Results Only Imaging [facility] Radiology Results [address] [place] [address] Clint Miramontes MD [address] [place] [phone] Social History Tobacco Use Types Packs/Day [...] [facility] MRI [address] [place] [address] 08/16/2024 14:00 EDT EMILIA [facility] OBGYN Ultrasound [address] [place] [address] 08/29/2024 14:00 EDT Office Visit [facility] OBGYN [address] [place] [address] Ness Vilchis MD [address] [place] [address], [address] [place] [phone] 08/31/2024 16:00 EDT Office Visit [facility] Orthopedics & Sport Medicine [address] [place], [place] [phone] Reema Peoples, PA-C [address] [facility] [address] [place], [place] [phone] 09/01/2024 9:30 EDT Office Visit [facility] Rheumatology [address] [place] [phone] Lin Grider MD [address] [place], [place] [address] [address] [place] [address] 11/08/2024 14:00 EST Office Visit [facility] Adult Hematology & Oncology [address] [place] [address] Luz Maria Peter NP [address] [place] [address], [facility] [address] [place] [phone] 11/22/2024 10:15 EST Office Visit [facility] [address] [place] [address] Clint Miramontes MD [address] [place] [phone] documented as of this encounter Procedures Procedure Name Priority Date/Time Associated Diagnosis Comments US ABDOMEN LIMITED 03/20/2021 8:22 EDT documented in this encounter Results * US ABDOMEN LIMITED (03/20/2021 8:22 EDT) Anatomical Region Laterality Modality Abdomen, Body Ultrasound 03/20/2021 8:19 EDT Narrative 03/20/2021 8:22 EDT ? EXAM: ULTRASOUND/RIGHT UPPER QUADRANT ? EX. D/ (0720) ? CLINICAL INFORMATION: ? R10.11 RUQ PAIN ? R/O CHOLECYSTITIS ? INDICATION: R10.11 RUQ PAIN, R/O CHOLECYSTITIS . ? COMPARISON: None. ? TECHNIQUE: Sonographic examination of the right upper quadrant was ? performed. Color Doppler imaging was also utilized. ? FINDINGS: ? Pancreas: Unremarkable as visualized. No focal pancreatic lesion or ? duct dilatation. ? Liver: Normal. No focal hepatic lesion or intrahepatic duct ? dilatation. ? Gallbladder: Normal. No stones or wall abnormality. No ? pericholecystic fluid. ? Common bile duct: The common bile duct caliber is normal. It measures ? 4.5 mm. ? Right kidney: Unremarkable right kidney. No focal renal lesion or ? hydronephrosis. ? Inferior vena cava: Patent. ? IMPRESSION: ??Normal examination. ? REPORT SIGNED IN OTHER VENDOR SYSTEM 03/20/2021 ?Reported By: Bharath Patel MD ? CC: ? Transcribed Date/Time: 03/20/2021 (821) ? Gaming Surveillance Observer: ? Printed Date/Time: 03/20/2021 (5083) ? PAGE 1 ? Signed Report ? Procedure Note Bharath Patel MD - 03/20/2021 EXAM: ULTRASOUND/RIGHT UPPER QUADRANT EX. D/ (4620) CLINICAL INFORMATION: R10.11 RUQ PAIN R/O CHOLECYSTITIS INDICATION: R10.11 RUQ PAIN, R/O CHOLECYSTITIS . COMPARISON: None. TECHNIQUE: Sonographic examination of the right upper quadrant was performed. Color Doppler imaging was also utilized. FINDINGS: Pancreas: Unremarkable as visualized. No focal pancreatic lesion or duct dilatation. Liver: Normal. No focal hepatic lesion or intrahepatic duct dilatation. Gallbladder: Normal. No stones or wall abnormality. No pericholecystic fluid. Common bile duct: The common bile duct caliber is normal. Itmeasures 4.5 mm. Right kidney: Unremarkable right kidney. No focal renal lesion or hydronephrosis. Inferior vena cava: Patent. IMPRESSION: Normal examination. REPORT SIGNED IN OTHER VENDOR SYSTEM 03/20/2021 Reported By: Bharath Patel MD CC: Transcribed Date/Time: 03/20/2021 (821) Gaming Surveillance Observer: Printed Date/Time: 03/20/2021 (4944) PAGE 1 Signed Report Clint Miramontes MD IMG US ORDERABLES documented in this encounter Visit Diagnoses Not on filedocumented in this encounter Care Teams Hydroelectric Station Chief Relationship Specialty Start Date End Date Clint Miramontes MD [address] [place] [phone] PCP - General 08/23/19 documented as of this encounter
--- OUTSIDE RECORDS SUMMARY | 2024-08-07 13:39 | XMS_ITS | Encounter Summary ---
Author Organization [facility] Address [address] [place] [address] Care Team Providers Care Nutrition Consultant Name Role Phone Edison Miramontes DO Primary Care Provider [phone] Clint Miramontes MD Primary Care Provider [phone] Encounter Details Date Type Department Care Team (Late st Contact Info) Description 08/15/2019 Results Only [facility] - [facility] Lab - Main [place] [address] [place] [address] Clint Miramontes MD [address] [place] [phone] Social History Tobacco Use Types Packs/Day [...] Contact Info) Description 08/10/2024 16:00 EDT Appointment [facility] MRI [address] [place] [address] 08/16/2024 14:00 EDT EMILIA [facility] OBGYN Ultrasound [address] [place] [address] 08/29/2024 14:00 EDT Office Visit [facility] OBGYN [address] [place] [address] Ness Vilchis MD [address] [place] [address], [address] [place] [phone] 08/31/2024 16:00 EDT Office Visit [facility] Orthopedics & Sport Medicine [address], [address] [place], [place] [phone] Reema Peoples PA-C [address] [facility] [address] [place], [place] [phone] 09/01/2024 9:30 EDT Office Visit [facility] Rheumatology [address] [place] [phone] Lin Grider MD [address] [place] [address] [address] [place] [address] 11/08/2024 14:00 EST Office Visit [facility] Adult Hematology & Oncology [address] [place] [phone] Luz Maria Peter NP [address] [place] [address] [address] [place] [phone] 11/22/2024 10:15 EST Office Visit [facility] Family Medicine - [address] [address] Clint Miramontes MD [address] [place] [phone] documented as of this encounter Procedures Procedure Name Priority Date/Time Associated Diagnosis Comments COMPLETE BLOOD COUNT WITH DIFFERENTIAL (AUTO) Routine 08/15/2019 7:59 EDT LIPID PROFILE (INCLUDES CHOLESTEROL, TRIGLYCERIDES, HDL, LDL) Routine 08/15/2019 7:59 EDT documented in this encounter Results * COMPLETE BLOOD COUNT WITH DIFFERENTIAL (AUTO) (08/15/2019 7:59 EDT) ABSOLUTE NEUTROPHIL COUN - [facility] 2.6 2.2 - 8.85 10e3/uL 08/15/2019 9:35 [facility] BASO # - [facility] 0.05 0.01 - 0.11 10e/uL 08/15/2019 9:35 [facility] BASO % - [facility] 1 0 - 2 % 08/15/2019 9:35 [facility] EOS # - [facility] 0.17 0.03 - 0.61 10e3/ul 08/15/2019 9:35 [facility] EOS % - [facility] 4 0 - 5 % 08/15/2019 9:35 [facility] GRAN % - [facility] 55.2 40 - 80 % 08/15/2019 9:35 [facility] HEMATOCRIT - [facility] 40.5 34.9 - 44.4 % 08/15/2019 9:35 [facility] HEMOGLOBIN - [facility] 13.2 11.6 - 15.2 g/dl 08/15/2019 9:35 [facility] IG# - [facility] 0.01 0 - 0.7 10e3/uL 08/15/2019 9:35 [facility] IG% - [facility] 0.2 0 - 0.9 % 08/15/2019 9:35 [facility] LYMPH # - [facility] 1.5 1.09 - 3.3 10e3/ul 08/15/2019 9:35 [facility] LYMPH% - [facility] 31.4 20 - 40 % 08/15/2019 9:35 [facility] MEAN CORPUSCULAR HGB - [facility] 29.6 26.7 - 33.3 pg 08/15/2019 9:35 [facility] MEAN CORPUSCULAR HGB CONC - [facility] 32.6 32.1 - 35.9 g/dL 08/15/2019 9:35 [facility] MEAN CELL VOLUME - [facility] 90.8 81 - 98 fl 08/15/2019 9:35 [facility] MONO # - [facility] 0.4 0.1 - 0.8 10e3/uL 08/15/2019 9:35 [facility] MONO% - [facility] 8.4 0 - 12 % 08/15/2019 9:35 [facility] PLATELET COUNT 221 141 - 377 10e3/ul 08/15/2019 9:35 [facility] RED BLOOD COUNT - [facility] 4.46 3.86 - 5.04 10e3/ul 08/15/2019 9:35 [facility] RED CELL DISTRI WIDTH - [facility] 12.6 <14.7 % 08/15/2019 9:35 [facility] WHITE BLOOD COUNT - [facility] 4.7 4.0 - 12.4 10e3/ul 08/15/2019 9:35 [facility] 08/15/2019 7:59 EDT 08/15/2019 8:00 EDT Narrative [facility] - 08/15/2019 9:35 EDT Does PT Have a Latex Allergy? NO Clint Miramontes MD HEMATOLOGY & PF4 ORD ERABLES [facility] * (ABNORMAL) LIPID PROFILE (INCLUDES CHOLESTEROL, TRIGLYCERIDES, HDL, LDL) (08/15/2019 7:59 EDT) Triglyceride 81 <150 mg/dL 08/15/2019 9:57 EDT [facility] Comment: Adult: Normal: ?<150 mg/dl ? Borderline High: 150-199 mg/dl ? High: ?200-499 mg/dl ? Very High: >bv=175 Cholesterol 194 <200 mg/dL 08/15/2019 9:57 [facility] Comment: Acceptable: ??<200 Borderline: ??200-239 High: ?> or = 240 Chol/HDL Ratio 3.8 0 - 4.5 08/15/2019 9:57 [facility] Comment: DESIRABLE RATIO IS LESS THAN 4.1 PATIENTS ARE CONSIDERED AT RISK: WOMEN RATIO >5 MEN RATIO >6 FASTING? - [facility] Yes 9 8:00 [facility] HDL 51 40 - 60 mg/dL 08/15/2019 9:57 [facility] Comment: ?? Reference Range Low: ? < 40 ??mg/dL Normal: ??40-60 mg/dL High: ?>= 60 mg/dL LDL CHOLESTEROL - [facility] 127(H) 60 - 100 mg/dL 08/15/2019 9:57 [facility] Non HDL Cholesterol 143 mg/dl 08/15/2019 9:57 [facility] Comment: Desirable: ?Less than 130 Borderline High: ??130-159 High: ? 160-189 Very High: ?Greater than or equal to 190 08/15/2019 7:59 EDT 08/15/2019 7:59 EDT Narrative [facility] - 08/15/2019 9:57 EDT Does PT Have a Latex Allergy? NO Clint Miramontes MD CHEMISTRY & BLOOD GA S ORDERABLES [facility] documented in this encounter Visit Diagnoses Not on filedocumented in this encounter Care Teams Nutrition Consultant Relationship Specialty Start Date End Date Edison Miramontes DO PCP - General 05/14/17 08/22/19 Clint Miramontes MD [address] [place] [phone] PCP - General 08/23/19 documented as of this encounter
--- OUTSIDE RECORDS SUMMARY | 2024-08-07 13:39 | XMS_ITS | Encounter Summary ---
Author Organization [facility] Address [address] [place] [address] Care Team Providers Care Dental Technology Advisor Name Role Phone Clint Miramontes MD Primary Care Provider [phone] Encounter Details Date Type Department Care Team (Late st Contact Info) Description 03/13/[address] [facility] - [facility] Family Medicine - [place] [address] [place] [address] Clint Miramontes MD [address] [place] [phone] Social History Tobacco Use Types Packs/Day Years [...] Info) Description 08/10/2024 16:00 EDT Appointment [facility] MRI [address] [place], [place] 9424[address] 08/16/2024 14:00 EDT EMILIA [facility] OBGYN Ultrasound [address] [place], [place] 1614[address] 08/29/2024 14:00 EDT Office Visit [facility] OBGYN [address] [place], [place] 765[address] Ness Vilchis MD [address] [place] [address], [address] [place] [address] 08/31/2024 16:00 EDT Office Visit [facility] Orthopedics & Sport Medicine [address], [address] [place] [address] Reema Peoples, PA-C 13[address] [facility] [address] [place], [place] [phone] 09/01/2024 9:30 EDT Office Visit [facility] Rheumatology [address] [place] [address] [phone] Lin Grider MD [address] [place] [address] [address] [place] [address] 11/08/2024 14:00 EST Office Visit [facility] Adult Hematology & Oncology [address] [place] [address] [phone] Luz Maria Peter, GABRIEL [address] [facility] [address] [place] [address] 11/22/2024 10:15 EST Office Visit [facility] Family Medicine - [place] [address] [place] [address] Clint Miramontes MD [address] [place] [phone] documented as of this encounter Procedures Procedure Name Priority Date/Time Associated Diagnosis Comments VIT D, 25-HYDROXY - [facility] Routine 03/13/2020 18:35 EDT COMPLETE BLOOD COUNT WITH DIFFERENTIAL (AUTO) Routine 03/13/2020 18:35 EDT documented in this encounter Results * (ABNORMAL) VIT D, 25-HYDROXY - [facility] (03/13/2020 18:35 EDT) VIT D, 25 HYDROXY - [facility] 23.4(L) 30 - 100 ng/ml 03/13/2020 19:07 EDT [facility] Comment: ? 25-Hydroxy D Total (D2+D3) ?Expected Values Deficient: ?<20 ng/ml Insufficient: ? 20- <30 ng/ml Sufficient: ? 30-100 ng/ml Potential intoxication: >100 ng/ml 03/13/2020 18:3 5 EDT 03/13/2020 18:35 EDT Clint Miramontes MD CHEMISTRY & BLOOD GA S ORDERABLES [facility] * COMPLETE BLOOD COUNT WITH DIFFERENTIAL (AUTO) (03/13/2020 18:35 EDT) Gran # 3.7 2.2 - 8.85 10e3/uL 03/13/2020 18:42 EDT [facility] BASO # - [facility] 0.04 0.01 - 0.11 10e/uL 03/13/2020 18:42 EDT [facility] BASO % - [facility] 1 0 - 2 % 03/13/2020 18:42 EDT [facility] EOS # - [facility] 0.11 0.03 - 0.61 10e3/ul 03/13/2020 18:42 [facility] EOS % - [facility] 2 0 - 5 % 03/13/2020 18:42 [facility] GRAN % - [facility] 62.7 40 - 80 % 03/13/2020 18:42 [facility] HEMATOCRIT - [facility] 39.7 34.9 - 44.4 % 03/13/2020 18:42 [facility] HEMOGLOBIN - [facility] 13.2 11.6 - 15.2 g/dl 03/13/2020 18:42 [facility] IG# - [facility] 0.01 0 - 0.7 10e3/uL 03/13/2020 18:42 [facility] IG% - [facility] 0.2 0 - 0.9 % 03/13/2020 18:42 [facility] LYMPH # - [facility] 1.6 1.09 - 3.3 10e3/ul 03/13/2020 18:42 [facility] LYMPH% - [facility] 27.1 20 - 40 % 03/13/2020 18:42 [facility] MEAN CORPUSCULAR HGB - [facility] 29.9 26.7 - 33.3 pg 03/13/2020 18:42 [facility] MEAN CORPUSCULAR HGB CONC - [facility] 33.2 32.1 - 35.9 g/dL 03/13/2020 18:42 [facility] MEAN CELL VOLUME - [facility] 90.0 81 - 98 fl 03/13/2020 18:42 [facility] MONO # - [facility] 0.4 0.1 - 0.8 10e3/uL 03/13/2020 18:42 [facility] MONO% - [facility] 7.4 0 - 12 % 03/13/2020 18:42 [facility] PLATELET COUNT 179 141 - 377 10e3/ul 03/13/2020 18:42 [facility] RED BLOOD COUNT - [facility] 4.41 3.86 - 5.04 10e3/ul 03/13/2020 18:42 [facility] RED CELL DISTRI WIDTH - [facility] 12.3 <14.7 % 03/13/2020 18:42 EDT [facility] WHITE BLOOD COUNT - [facility] 5.8 4.0 - 12.4 10e3/ul 03/13/2020 18:42 EDT [facility] 03/13/2020 18:3 5 EDT 03/13/2020 18:35 EDT Clint Miramontes MD HEMATOLOGY & PF4 ORD ERABLES [facility] documented in this encounter Visit Diagnoses Not on filedocumented in this encounter Care Teams Dental Technology Advisor Relationship Specialty Start Date End Date Clint Miramontes MD [address] [place] [address] PCP - General 08/23/19 documented as of this encounter
--- OUTSIDE RECORDS SUMMARY | 2024-08-07 13:39 | XMS_ITS | Encounter Summary ---
Author Organization [facility] Address [address] [place] [address] Care Team Providers Care Elementary Math Tutor Name Role Phone Clint Miramontes MD Primary Care Provider [phone] Reason for Visit * Reason Onset Date Comments Other 02/23/2020 Encounter Details Date Type Department Care Team (Late st Contact Info) Description 02/23/2020 Telephone [facility] - [address] [address] Clint Miramontes MD [address] [place] [phone] Other Social History Tobacco Use Types Packs/Day [...] Telephone Encounter - Clover Lund RN - 03/08/2020 0941 EDT Mel notified. Negative COVID-19 screen. She will call back before her appt if anything changes. Will call when she arrives for her appt. Will wear a mask to her appt. * Telephone Encounter - Clover Lund RN - 03/08/2020 0926 EDT Please advise. Not sure if I think she is okay means no labs needed. * Telephone Encounter - Bobbi Brown - 03/08/2020 0923 EDT Patient called stating she went to [facility] this morning to have labs drawn - was under assumption that she needed to do them before 03/12 visit with JW. Please advise. 03/12 is scheduled at cholesterol f/u. * Telephone Encounter - Ekta Hemphill RN - 02/24/2020 1146 EDT CAROL 08/18/19 (lipids, COPD, med f/u (ativan) Per last OV follow-up was recommended in 6 months. Labs last completed 08/2019 (lipid,cmp,cbc) Mel lives in [place]. Do you want to schedule her via telemed or video for a f/u at this time? Labs? * Telephone Encounter - Mynor Cobb - 02/23/2020 1137 EDT Scheduling patient for televideo appt, please advise of any labs to be drawn, potentially at [facility]. documented in this encounter Plan of Treatment Upcoming Encounters Date Type Department Care Team (Late st Contact Info) Description 08/10/2024 16:00 EDT Appointment [facility] MRI [address] [place], [place] [phone] 08/16/2024 14:00 EDT EMILIA [facility] OBGYN Ultrasound [address] [place], [place] [address] 08/29/2024 14:00 EDT Office Visit [facility] OBGYN [address] [place], [place] [phone] Ness Vilchis MD [address] [place] [address], [address] [place] [address] 08/31/2024 16:00 EDT Office Visit [facility] Orthopedics & Sport Medicine [address], [address] [place], [place] [phone] Reema Peoples, PA-C 13[address] [facility] [address] [place], [place] [phone] 09/01/2024 9:30 EDT Office Visit [facility] Rheumatology [address] [place] [address] [phone] Lin Grider MD [address] [place], [place] [address]B [address] [place] [address] 11/08/2024 14:00 EST Office Visit [facility] Adult Hematology & Oncology [address] [place] [address], [place] [address] Luz Maria Peter NP [address] [place] [address] [address] [place] [address] 11/22/2024 10:15 EST Office Visit [facility] Family Medicine - [place] [address] [place] [address] [phone] Clint Miramontes MD [address] [place] [phone] documented as of this encounter Visit Diagnoses Not on filedocumented in this encounter Care Teams Elementary Math Tutor Relationship Specialty Start Date End Date Clint Miramontes MD [address] [place] [phone] PCP - General 08/23/19 documented as of this encounter
--- OUTSIDE RECORDS SUMMARY | 2024-08-07 13:39 | XMS_ITS | Encounter Summary ---
Author Organization [facility] Address [address] [place] [address] Care Team Providers Care Tilt Tray Driver Name Role Phone Clint Miramontes MD Primary Care Provider [phone] Encounter Details Date Type Department Care Team (Late st Contact Info) Description 04/24/2020 Orders Only [facility] - [facility] [place] Medicine [address] [address] Cht Panel Coordinator, [facility] Family Social History Tobacco Use Types Packs/Day [...] EDT Appointment [facility] MRI [address] [place] [address] 08/16/2024 14:00 EDT EMILIA [facility] OBGYN Ultrasound [address] [place] [address] 08/29/2024 14:00 EDT Office Visit [facility] OBGYN [address] [place] [address] Ness Vilchis MD [address] [place] [address], [address] [place] [address] 08/31/2024 16:00 EDT Office Visit [facility] Orthopedics & Sport Medicine [address], [address] [place], [place] [phone] Reema Peoples PA-C 1311 [facility] [address] [place], [place] [phone] 09/01/2024 9:30 EDT Office Visit [facility] Rheumatology [address] [place] [address] [phone] Lin Grider MD [address] [place] [address] [address] [place] [address] 11/08/2024 14:00 EST Office Visit [facility] Adult Hematology & Oncology [address] [place] [address] Luz Maria Peter NP [address] [place] [address] [address] [place] [phone] 11/22/2024 10:15 EST Office Visit [facility] Family Medicine - [address] [address] Clint Miramontes MD [address] [place] [phone] documented as of this encounter Procedures Procedure Name Priority Date/Time Associated Diagnosis Comments COLONOSCOPY PROCEDURE Routine 03/14/2011 documented in this encounter Results * COLONOSCOPY PROCEDURE (03/14/2011) Colonoscopy Comment:adenoma, 5y f/u Colonoscopy, External Anatomical Region Laterality Modality Endoscopy Historical Provider GI PROCEDURE PRABHU CASPER documented in this encounter Visit Diagnoses Not on filedocumented in this encounter Care Teams Tilt Tray Driver Relationship Specialty Start Date End Date Clint Miramontes MD [address] [place] [phone] PCP - General 08/23/19 documented as of this encounter
--- OUTSIDE RECORDS SUMMARY | 2024-08-07 13:39 | XMS_ITS | Encounter Summary ---
Author Organization [facility] Address [address] [place] [address] Care Team Providers Care Forestry Consultant Name Role Phone Clint Miramontes MD Primary Care Provider [phone] Reason for Visit * Reason Comments Other Encounter Details Date Type Department Care Team (Late st Contact Info) Description 10/19/2020 Refill [facility] Family Medicine [address] [address] Clint Miramontes MD [address] [place] [phone] Other Social History Tobacco Use Types Packs/Day [...] Tabs by mouth daily. 180 Tab 3 10/22/2020 06/13/2021 documented in this encounter Miscellaneous Notes * Telephone Encounter - Clover Lund RN - 10/22/2020 0919 EST Spoke with Mel. Scheduled next visit for 01/03/21. Per the rx protocol, rx sent (confirmed dosing and pharmacy with Mel). * Telephone Encounter - Clover Lund RN - 10/22/2020 0819 EST Last seen 08/28/20. Due for a follow up 4-6 months from then (not yet scheduled). Will attempt to reach out this AM. documented in this encounter Plan of Treatment Upcoming Encounters Date Type Department Care Team (Late st Contact Info) Description 08/10/2024 16:00 EDT Appointment [facility] MRI [address] [place] [address] 08/16/2024 14:00 EDT EMILAI [facility] OBGYN Ultrasound [address] [place], [place] [phone] 08/29/2024 14:00 EDT Office Visit [facility] OBGYN [address] [place] [address] Ness Vilchis MD 130 [facility], [address] [place] [address] 08/31/2024 16:00 EDT Office Visit [facility] Orthopedics & Sport Medicine [address], [address] [place] [address] Reema Peoples PA-C 1311 [facility] [address] [place] [address] 09/01/2024 9:30 EDT Office Visit [facility] Rheumatology 130 [facility], [place] [phone] Lin Grider MD 130 [facility] [address] [place] [address] 11/08/2024 14:00 EST Office Visit [facility] Adult Hematology & Oncology [address] [place] [address], [place] [address] Luz Maria Peter NP 130 [facility] [address] [place] [phone] 11/22/2024 10:15 EST Office Visit [facility] Family Medicine - [place] [address] [place], [place] [phone] Clint Miramontes MD [address] [place] [phone] documented as of this encounter Visit Diagnoses Not on filedocumented in this encounter Discontinued Medications Medication Sig Discontinue Reason Start Date End Da te lovastatin (MEVACOR) 40 mg tablet 2 tab(s) orally once a day 09/19/2019 10/22/2020 documented as of this encounter Care Teams Forestry Consultant Relationship Specialty Start Date End Date Clint Miramontes MD [address] [place] [phone] PCP - General 08/23/19 documented as of this encounter
--- OUTSIDE RECORDS SUMMARY | 2024-08-07 13:40 | XMS_ITS | Encounter Summary ---
Author Organization [facility] Address [address] [place] [address] Care Team Providers Care Tumbler Operator Name Role Phone Edison Miramontes DO Primary Care Provider [phone] Clint Miramontes MD Primary Care Provider [phone] Encounter Details Date Type Department Care Team (Late st Contact Info) Description 03/11/2018 Historical Results Only [facility] - [place] [address] [place], [place] [phone] Clint Miramontes MD [address] [place] [phone] Social History Tobacco Use Types Packs/Day [...] Contact Info) Description 08/10/2024 16:00 EDT Appointment [facility] MRI [address] [place] [address] 08/16/2024 14:00 EDT EMILIA [facility] OBGYN Ultrasound [address] [place] [address] 08/29/2024 14:00 EDT Office Visit [facility] OBGYN [address] [place] [address] Ness Vilchis MD [address] [place] [address], [address] [place] [phone] 08/31/2024 16:00 EDT Office Visit [facility] Orthopedics & Sport Medicine [address], [address] [place], [place] [phone] Reema Peoples PA-Mukund 1311 [facility] [address] [place], [place] [phone] 09/01/2024 9:30 EDT Office Visit [facility] Rheumatology [address] [place] [address] [phone] Lin Grider MD [address] [place] [address] [address] [place] [address] 11/08/2024 14:00 EST Office Visit [facility] Adult Hematology & Oncology [address] [place] [phone] Luz Maria Peter NP [address] [place] [address] [address] [place] [address] 11/22/2024 10:15 EST Office Visit [facility] Family Medicine - [address] [address] Clint Miramontes MD [address] [place] [phone] documented as of this encounter Procedures Procedure Name Priority Date/Time Associated Diagnosis Comments TSH Routine 03/11/2018 7:40 EDT documented in this encounter Results * TSH (03/11/2018 7:40 EDT) Pathologist [facility] THYROID STIM HORMONE - [facility] 0.84 0.46 - 4.68 uIU/ml 03/11/2018 10:00 EDT [facility] 03/11/2018 7:40 EDT 03/11/2018 7:40 EDT Narrative [facility] - 03/11/2018 10:00 EDT Does PT Have a Latex Allergy? NO Clint Miramontes MD CHEMISTRY & BLOOD GA S ORDERABLES [facility] documented in this encounter Visit Diagnoses Not on filedocumented in this encounter Care Teams Tumbler Operator Relationship Specialty Start Date End Date Edison Miramontes DO PCP - General 05/14/17 08/22/19 Clint Miramontes MD [address] [place] [phone] PCP - General 08/23/19 documented as of this encounter
--- OUTSIDE RECORDS SUMMARY | 2024-08-07 13:40 | XMS_ITS | Encounter Summary ---
Author Organization Health system Address [address] [place] [address] Care Team Providers Care Web Designer Name Role Phone Cooper Mojica MD Primary Care Provider [phone] Edison Miramontes DO Primary Care Provider [phone] Clint Miramontes MD Primary Care Provider [phone] Encounter Details Date Type Department Care Team (Late st Contact Info) Description 04/14/2017 Historical Results Only [facility] - Main [place] [address] [place] [address] [place] [address] [facility] [address] [place] [phone] Social History Tobacco Use Types Packs/Day Years [...] on file documented as of this encounter Plan of Treatment Upcoming Encounters Date Type Department Care Team (Late st Contact Info) Description 08/10/2024 16:00 EDT Appointment [facility] MRI [address] [place], [place] [phone] 08/16/2024 14:00 EDT EMILIA [facility] OBGYN Ultrasound [address] [place], [place] [address]262 08/29/2024 14:00 EDT Office Visit [facility] OBGYN [address] [place] [address] Ness Vilchis MD 130 [facility], [address] [place] [phone] 08/31/2024 16:00 EDT Office Visit [facility] Orthopedics & Sport Medicine [address], [address] [place] [address] Reema Peoples PA-C 1311 [facility] [address] [place], [place] [phone] 09/01/2024 9:30 EDT Office Visit [facility] Rheumatology [address] [place], [place] [phone] Lin Grider MD [address] [place] [address] [address] [place] [address] 11/08/2024 14:00 EST Office Visit [facility] Adult Hematology & Oncology [address] [place] [address] Luz Maria Peter NP 130 [facility] [address] [place] [address] 11/22/2024 10:15 EST Office Visit [facility] Family Medicine - [place] [address] [place] [address] Clint Miramontes MD [address] [place] [phone] documented as of this encounter Procedures Procedure Name Priority Date/Time Associated Diagnosis Comments CBC W/PLT & DIFF,POINT OF CARE - [facility] Routine 04/14/2017 15:48 EDT documented in this encounter Results * CBC W/PLT & DIFF,POINT OF CARE - [facility] (04/14/2017 15:48 EDT) ABSOLUTE NEUTROPHIL COUN - [facility] 2.6 1.7 - 7.0 10e3/uL 04/14/2017 16:10 [facility] BASO # - [facility] 0.02 0.0 - 0.3 10e3/uL 04/14/2017 16:10 [facility] BASO % - [facility] 0 0 - 2 % 04/14/2017 16:10 [facility] EOS # - [facility] 0.21 0.05 - 0.5 10e3/uL 04/14/2017 16:10 [facility] EOS % - [facility] 4 0 - 5 % 04/14/2017 16:10 [facility] GRAN % - [facility] 51.9 40 - 80 % 04/14/2017 16:10 [facility] HEMATOCRIT - [facility] 35.1 34.0 - 47.0 % 04/14/2017 16:10 [facility] HEMOGLOBIN - [facility] 11.7 11.2 - 15.7 g/dl 04/14/2017 16:10 [facility] LYMPH # - [facility] 1.6 0.9 - 2.9 e3/ul 04/14/2017 16:10 [facility] LYMPH% - [facility] 32.7 20 - 40 % 04/14/2017 16:10 [facility] MEAN CORPUSCULAR HGB - [facility] 30.3 26 - 34 pg 04/14/2017 16:10 [facility] MEAN CORPUSCULAR HGB CONC - [facility] 33.3 31 - 36 g/dL 04/14/2017 16:10 [facility] MEAN CELL VOLUME - [facility] 90.9 77 - 100 fl 04/14/2017 16:10 [facility] MONO # - [facility] 0.5 0.3 - 0.9 10e3/uL 04/14/2017 16:10 EDT [facility] MONO% - [facility] 10.8 0 - 12 % 04/14/2017 16:10 EDT [facility] PLATELET COUNT 206 150 - 400 10e3/ul 04/14/2017 16:10 EDT [facility] RED BLOOD COUNT - [facility] 3.86 3.8 - 5.2 10e6/ul 04/14/2017 16:10 EDT [facility] RED CELL DISTRI WIDTH - [facility] 12.3 11.8 - 15.6 % 04/14/2017 16:10 [facility] WHITE BLOOD COUNT - [facility] 5.0 3.5 - 10.5 10e3/ul 04/14/2017 16:10 [facility] 04/14/2017 15:4 8 EDT 04/14/2017 16:06 EDT Sheyla Atwood MD CHEMISTRY & BLOOD GA S ORDERABLES [facility] documented in this encounter Visit Diagnoses Not on filedocumented in this encounter Care Teams Web Designer Relationship Specialty Start Date End Date Cooper Mojica MD [address] [place] [address] PCP - General 03/27/10 05/13/17 Edison Miramontes DO [address] [place] [address] PCP - General 05/14/17 08/22/19 Clint Miramontes MD [address] [place] [phone] PCP - General 08/23/19 documented as of this encounter
--- OUTSIDE RECORDS SUMMARY | 2024-08-07 13:40 | XMS_ITS | Encounter Summary ---
Author Organization [facility] Address [address] [place] [address] Care Team Providers Care Electrician Deck Name Role Phone Edison Miramontes DO Primary Care Provider Clint Miramontes MD Primary Care Provider [phone] Encounter Details Date Type Department Care Team (Late st Contact Info) Description 03/11/2018 Historical Results Only [facility] - [facility] Lab - Main [place] [address] [place], [place] [phone] Clint Miramontes MD [address] [place] [phone] Social History Tobacco Use Types Packs/Day [...] Appointment [facility] MRI [address] [place] [address] 08/16/2024 14:00 EDT EMILIA [facility] OBGYN Ultrasound [address] [place] [address] 08/29/2024 14:00 EDT Office Visit [facility] OBGYN [address] [place] [address] Ness Vilchis MD [address] [place] [address], [address] [place] [phone] 08/31/2024 16:00 EDT Office Visit [facility] Orthopedics & Sport Medicine [address], [address] [place], [place] [phone] Reema Peoples PA-Mukund [address] [facility] [address] [place], [place] [phone] 09/01/2024 9:30 EDT Office Visit [facility] Rheumatology [address] [place] [address] [phone] Lin Grider MD [address] [place] [address] [address] [place] [address] 11/08/2024 14:00 EST Office Visit [facility] Adult Hematology & Oncology [address] [place] [phone] Luz Maria Peter NP [address] [place] [address] [address] [place] [address] 11/22/2024 10:15 EST Office Visit [facility] Family Medicine - [address] [address] Clint Miramontes MD [address] [place] [phone] documented as of this encounter Procedures Procedure Name Priority Date/Time Associated Diagnosis Comments VIT D, 25-HYDROXY - [facility] Routine 03/11/2018 7:40 EDT LIPID PROFILE (INCLUDES CHOLESTEROL, TRIGLYCERIDES, HDL, LDL) Routine 03/11/2018 7:40 EDT COMPREHENSIVE METABOLIC PANEL (CMP) Routine 03/11/2018 7:40 EDT documented in this encounter Results * (ABNORMAL) LIPID PROFILE (INCLUDES CHOLESTEROL, TRIGLYCERIDES, HDL, LDL) (03/11/2018 7:40 EDT) Triglyceride 137 <150 mg/dL 03/11/2018 9:40 EDT [facility] Comment: Adult: Normal: ?<150 mg/dl ? Borderline High: 150-199 mg/dl ? High: ?200-499 mg/dl ? Very High: >gs=366 Cholesterol 222(H) <200 mg/dL 03/11/2018 9:40 T [facility] Comment: Acceptable: ??<200 Borderline: ??200-239 High: ?> or = 240 Chol/HDL Ratio 4.2 0 - 4.5 03/11/2018 9:40 T [facility] Comment: DESIRABLE RATIO IS LESS THAN 4.1 PATIENTS ARE CONSIDERED AT RISK: WOMEN RATIO >5 MEN RATIO >6 FASTING? - [facility] Yes 8 7:40 [facility] HDL 52 40 - 60 mg/dL 03/11/2018 9:40 [facility] Comment: ?? Reference Range Low: ? < 40 ??mg/dL Normal: ??40-60 mg/dL High: ?>= 60 mg/dL LDL CHOLESTEROL - [facility] 143(H) 60 - 100 mg/dL 03/11/2018 9:40 [facility] Non HDL Cholesterol 170 mg/dl 03/11/2018 9:40 [facility] Comment: Desirable: ?Less than 130 Borderline High: ??130-159 High: ? 160-189 Very High: ?Greater than or equal to 190 03/11/2018 7:40 EDT 03/11/2018 7:40 EDT Narrative [facility] - 03/11/2018 9:40 EDT Does PT Have a Latex Allergy? NO Clint Miramontes MD CHEMISTRY & BLOOD GA S ORDERABLES [facility] * COMPREHENSIVE METABOLIC PANEL (CMP) (03/11/2018 7:40 EDT) Albumin % 4.7 3.4 - 4.9 g/dL 03/11/2018 9:40 [facility] ALKALINE PHOSPHATASE - [facility] 44 38 - 126 U/L 03/11/2018 9:40 [facility] BILIRUBIN TOTAL 0.8 0.2 - 1.3 mg/dL 03/11/2018 9:40 [facility] BUN - [facility] 18 10 - 26 mg/dL 03/11/2018 9:40 [facility] CALCIUM - [facility] 9.8 8.5 - 10.5 mg/dL 03/11/2018 9:40 [facility] Chloride 99 96 - 110 mmol/L 03/11/2018 9:40 [facility] CO2 Total 31 22 - 32 mEq/L 03/11/2018 9:40 [facility] CREATININE 0.71 0.52 - 1.04 mg/dL 03/11/2018 9:40 [facility] eGFR >60 03/11/2018 9:40 [facility] Comment: Chronic renal impairment is defined as GFR <60 Multiply result by 1.210 for patients. eGFR calculated using the IDMS-traceable MDRD Study Equation. ??(effective 09/04/2014) Anion Gap 11 0 - 18 03/11/2018 9:40 EDT [facility] GLUCOSE - [facility] 90 70 - 100 mg/dL 03/11/2018 9:40 EDT [facility] Potassium 4.5 3.5 - 5.0 mEq/L 03/11/2018 9:40 EDT [facility] Sodium 141 136 - 145 mEq/L 03/11/2018 9:40 EDT [facility] TOTAL PROTEIN - [facility] 7.1 6.2 - 8.2 gm/dL 03/11/2018 9:40 EDT [facility] SGOT/AST - [facility] 24 14 - 36 U/L 03/11/2018 9:40 EDT [facility] SGPT/ALT - [facility] 33 9 - 52 U/L 8 9:40 EDT [facility] 03/11/2018 7:40 EDT 03/11/2018 7:40 EDT Narrative [facility] - 03/11/2018 9:40 EDT Does PT Have a Latex Allergy? NO Clint Miramontes MD CHEMISTRY & BLOOD GA S ORDERABLES [facility] * (ABNORMAL) VIT D, 25-HYDROXY - [facility] (03/11/2018 7:40 EDT) VIT D, 25 HYDROXY - [facility] 26.2(L) 30 - 100 ng/ml 03/11/2018 10:00 EDT [facility] Comment: ? 25-Hydroxy D Total (D2+D3) ?Expected Values Deficient: ?<20 ng/ml Insufficient: ? 20- <30 ng/ml Sufficient: ? 30-100 ng/ml Potential intoxication: >100 ng/ml 03/11/2018 7:40 EDT 03/11/2018 7:40 EDT Narrative [facility] - 03/11/2018 10:00 EDT Does PT Have a Latex Allergy? NO Clint Miramontes MD CHEMISTRY & BLOOD GA S ORDERABLES [facility] documented in this encounter Visit Diagnoses Not on filedocumented in this encounter Care Teams Electrician Deck Relationship Specialty Start Date End Date Edison Miramontes DO PCP - General 05/14/17 08/22/19 Clint Miramontes MD [address] [place] [phone] PCP - General 08/23/19 documented as of this encounter
--- OUTSIDE RECORDS SUMMARY | 2024-08-07 13:40 | XMS_ITS | Encounter Summary ---
Author Organization [facility] Address [address] [place] [address] Care Team Providers Care Contribution Solicitor Name Role Phone Edison Miramontes DO Primary Care Provider [phone] Clint Miramontes MD Primary Care Provider [phone] Encounter Details Date Type Department Care Team (Late st Contact Info) Description 09/16/2018 Historical Results Only [facility] - [facility] - Main [place] [address] [place], [place] [phone] Clint Miramontes MD [address] [place] [phone] Social History Tobacco Use Types Packs/Day [...] EDT Appointment [facility] MRI [address] [place] [address] 08/16/2024 14:00 EDT EMILIA [facility] OBGYN Ultrasound [address] [place] [address] 08/29/2024 14:00 EDT Office Visit [facility] OBGYN [address] [place] [address] Ness Vilchis MD [address] [place] [address], [address] [place] [phone] 08/31/2024 16:00 EDT Office Visit [facility] Orthopedics & Sport Medicine [address], [address] [place], [place] [phone] Reema Peoples PA-Mukund [address] [facility] [address] [place], [place] [phone] 09/01/2024 9:30 EDT Office Visit [facility] Rheumatology [address] [place] [phone] Lin Grider MD [address] [place] [address] [address] [place] [address] 11/08/2024 14:00 EST Office Visit [facility] Adult Hematology & Oncology [address] [place] [phone] Luz Maria Peter NP [address] [place] [address] [address] [place] [address] 11/22/2024 10:15 EST Office Visit [facility] Family Medicine - [address] [address] Clint Miramontes MD [address] [place] [phone] documented as of this encounter Procedures Procedure Name Priority Date/Time Associated Diagnosis Comments VIT D, 25-HYDROXY - [facility] Routine 09/16/2018 7:33 EST LIPID PROFILE (INCLUDES CHOLESTEROL, TRIGLYCERIDES, HDL, LDL) Routine 09/16/2018 7:33 EST COMPREHENSIVE METABOLIC PANEL (CMP) Routine 09/16/2018 7:33 EST documented in this encounter Results * LIPID PROFILE (INCLUDES CHOLESTEROL, TRIGLYCERIDES, HDL, LDL) (09/16/2018 7:33 EST) Triglyceride 149 <150 mg/dL 09/16/2018 9:23 [facility] Comment: Adult: Normal: ?<150 mg/dl ? Borderline High: 150-199 mg/dl ? High: ?200-499 mg/dl ? Very High: >si=059 Cholesterol 174 <200 mg/dL 09/16/2018 9:23 [facility] Comment: Acceptable: ??<200 Borderline: ??200-239 High: ?> or = 240 Chol/HDL Ratio 3.1 0 - 4.5 09/16/2018 9:23 [facility] Comment: DESIRABLE RATIO IS LESS THAN 4.1 PATIENTS ARE CONSIDERED AT RISK: WOMEN RATIO >5 MEN RATIO >6 FASTING? - [facility] Yes 8 7:33 [facility] HDL 56 40 - 60 mg/dL 09/16/2018 9:23 [facility] Comment: ?? Reference Range Low: ? < 40 ??mg/dL Normal: ??40-60 mg/dL High: ?>= 60 mg/dL LDL CHOLESTEROL - [facility] 88 60 - 100 mg/dL 09/16/2018 9:23 [facility] Non HDL Cholesterol 118 mg/dl 09/16/2018 9:23 [facility] Comment: Desirable: ?Less than 130 Borderline High: ??130-159 High: ? 160-189 Very High: ?Greater than or equal to 190 09/16/2018 7:33 EST 09/16/2018 7:33 EST Narrative [facility] - 09/16/2018 9:23 EST Does PT Have a Latex Allergy? NO Clint Miramontes MD CHEMISTRY & BLOOD GA S ORDERABLES [facility] * COMPREHENSIVE METABOLIC PANEL (CMP) (09/16/2018 7:33 EST) Albumin % 4.2 3.4 - 4.9 g/dL 09/16/2018 9:23 [facility] ALKALINE PHOSPHATASE - [facility] 50 38 - 126 U/L 09/16/2018 9:23 [facility] BILIRUBIN TOTAL 0.7 0.2 - 1.3 mg/dL 09/16/2018 9:23 [facility] BUN - [facility] 14 10 - 26 mg/dL 09/16/2018 9:23 [facility] CALCIUM - [facility] 9.6 8.5 - 10.5 mg/dL 09/16/2018 9:23 [facility] Chloride 103 96 - 110 mmol/L 09/16/2018 9:23 [facility] CO2 Total 31 22 - 32 mEq/L 09/16/2018 9:23 [facility] CREATININE 0.72 0.52 - 1.04 mg/dL 09/16/2018 9:23 [facility] eGFR >60 09/16/2018 9:23 [facility] Comment: Chronic renal impairment is defined as GFR <60 Multiply result by 1.210 for patients. eGFR calculated using the IDMS-traceable MDRD Study Equation. ??(effective 09/04/2014) Anion Gap 6 0 - 18 09/16/2018 9:23 [facility] GLUCOSE - [facility] 95 70 - 100 mg/dL 09/16/2018 9:23 [facility] Potassium 4.6 3.5 - 5.0 mEq/L 09/16/2018 9:23 [facility] Sodium 140 136 - 145 mEq/L 09/16/2018 9:23 [facility] TOTAL PROTEIN - [facility] 6.8 6.2 - 8.2 gm/dL 09/16/2018 9:23 [facility] SGOT/AST - [facility] 24 14 - 36 U/L 09/16/2018 9:23 [facility] SGPT/ALT - [facility] 30 9 - 52 U/L 8 9:23 [facility] 09/16/2018 7:33 EST 09/16/2018 7:33 EST Narrative [facility] - 09/16/2018 9:23 EST Does PT Have a Latex Allergy? NO Clint Miramontes MD CHEMISTRY & BLOOD GA S ORDERABLES [facility] * VIT D, 25-HYDROXY - [facility] (09/16/2018 7:33 EST) VIT D, 25 HYDROXY - [facility] 39.3 30 - 100 ng/ml 09/16/2018 9:36 [facility] Comment: ? 25-Hydroxy D Total (D2+D3) ?Expected Values Deficient: ?<20 ng/ml Insufficient: ? 20- <30 ng/ml Sufficient: ? 30-100 ng/ml Potential intoxication: >100 ng/ml 09/16/2018 7:33 EST 09/16/2018 7:33 EST Narrative [facility] - 09/16/2018 9:36 EST Does PT Have a Latex Allergy? NO Clint Miramontes MD CHEMISTRY & BLOOD GA S ORDERABLES [facility] documented in this encounter Visit Diagnoses Not on filedocumented in this encounter Care Teams Contribution Solicitor Relationship Specialty Start Date End Date Edison Miramontes DO PCP - General 05/14/17 08/22/19 Clint Miramontes MD [address] [place] [phone] PCP - General 08/23/19 documented as of this encounter
--- OUTSIDE RECORDS SUMMARY | 2024-08-07 13:40 | XMS_ITS | Encounter Summary ---
Author Organization [facility] Address [address] [place] [address] Care Team Providers Care Airline Pilot Flight Instructor Name Role Phone Edison Miramontes DO Primary Care Provider [phone] Encounter Details Date Type Department Care Team (Late st Contact Info) Description 03/30/2018 Historical Results Only [facility] Radiology Results [address] [place] [address] Clint Miramontes MD [address] [place] [phone] Social History Tobacco Use Types Packs/Day [...] Contact Info) Description 08/10/2024 16:00 EDT Appointment [facility] MRI [address] [place], [place] [phone] 08/16/2024 14:00 EDT EMILIA [facility] OBGYN Ultrasound [address] [place] [address] 08/29/2024 14:00 EDT Office Visit [facility] OBGYN [address] [place] [phone] Ness Vilchis MD [address] [place] [address], [address] [place] [address] 08/31/2024 16:00 EDT Office Visit [facility] Orthopedics & Sport Medicine [address], [address] [place], [place] [phone] Reema Peoples PA-C [address] [facility] [address] [place], [place] [phone] 09/01/2024 9:30 EDT Office Visit [facility] Rheumatology [address] [place] [address] [phone] Lin Grider MD [address] [place] [address] [address] [place] [address] 11/08/2024 14:00 EST Office Visit [facility] Adult Hematology & Oncology [address] [place] [address], [place] [phone] Luz Maria Peter NP [address] [place] [address], [facility] [address] [place] [address] 11/22/2024 10:15 EST Office Visit [facility] Family Medicine - [place] [address] [place] [phone] Clint Miramontes MD [address] [place] [phone] documented as of this encounter Visit Diagnoses Not on filedocumented in this encounter Care Teams Airline Pilot Flight Instructor Relationship Specialty Start Date End Date Edison Miramontes DO PCP - General 05/14/17 08/22/19 documented as of this encounter
--- OUTSIDE RECORDS SUMMARY | 2024-08-07 13:40 | XMS_ITS | Encounter Summary ---
Author Organization [facility] Address [address] [place] [address] Care Team Providers Care Rotary Driller Prospecting Name Role Phone Edison Miramontes DO Primary Care Provider [phone] Clint Miramontes MD Primary Care Provider [phone] Encounter Details Date Type Department Care Team (Late st Contact Info) Description 04/07/2019 Historical Results Only [facility] - [facility] - Main [address] [phone] [place] [address] [facility] [address] [place] [address] Social History Tobacco Use Types Packs/Day Years [...] Contact Info) Description 08/10/2024 16:00 EDT Appointment [facility] MRI [address] [place] [address] 08/16/2024 14:00 EDT EMILIA [facility] OBGYN Ultrasound [address] [place] [address] 08/29/2024 14:00 EDT Office Visit [facility] OBGYN [address] [place] [address] Ness Vilchis MD [address] [place] [address], [address] [place] [phone] 08/31/2024 16:00 EDT Office Visit [facility] Orthopedics & Sport Medicine [address], [address] [place], [place] [phone] Reema Peoples PA-C [address] [facility] [address] [place], [place] [phone] 09/01/2024 9:30 EDT Office Visit [facility] Rheumatology [address] [place] [phone] Lin Grider MD [address] [place] [address] [address] [place] [address] 11/08/2024 14:00 EST Office Visit [facility] Adult Hematology & Oncology [address] [place] [phone] Luz Maria Peter NP [address] [place] [address] [address] [place] [phone] 11/22/2024 10:15 EST Office Visit [facility] Family Medicine - [address] [address] Clint Miramontes MD [address] [place] [phone] documented as of this encounter Procedures Procedure Name Priority Date/Time Associated Diagnosis Comments [facility]DH Routine 04/07/2019 16:50 EDT CBC W/PLT & DIFF,POINT OF CARE - [facility] Routine 04/07/2019 16:26 EDT documented in this encounter Results * LDH (04/07/2019 16:50 EDT) Pathologist [facility] - [facility] 471 313 - 618 U/L 04/07/2019 17:53 EDT [facility] 04/07/2019 16:5 0 EDT 04/07/2019 17:04 EDT Sheyla Atwood MD CHEMISTRY & BLOOD GA S ORDERABLES [facility] * CBC W/PLT & DIFF,POINT OF CARE - [facility] (04/07/2019 16:26 EDT) Pathologist [facility] ABSOLUTE NEUTROPHIL COUN - [facility] 3.0 1.7 - 7.0 10e3/uL 04/07/2019 16:50 EDT [facility] BASO # - [facility] 0.03 0.0 - 0.3 10e3/uL 04/07/2019 16:50 EDT [facility] BASO % - [facility] 1 0 - 2 % 04/07/2019 16:50 EDT [facility] EOS # - [facility] 0.19 0.05 - 0.5 10e3/uL 04/07/2019 16:50 EDT [facility] EOS % - [facility] 3 0 - 5 % 04/07/2019 16:50 EDT [facility] GRAN % - [facility] 53.4 40 - 80 % 04/07/2019 16:50 EDT [facility] HEMATOCRIT - CV 38.5 34.0 - 47.0 % 04/07/2019 16:50 [facility] HEMOGLOBIN - [facility] 13.1 11.2 - 15.7 g/dl 04/07/2019 16:50 [facility] LYMPH # - [facility] 1.9 0.9 - 2.9 10e3/ul 04/07/2019 16:50 [facility] LYMPH% - [facility] 33.9 20 - 40 % 04/07/2019 16:50 [facility] MEAN CORPUSCULAR HGB - [facility] 30.8 26 - 34 pg 04/07/2019 16:50 [facility] MEAN CORPUSCULAR HGB CONC - [facility] 34.0 31 - 36 g/dL 04/07/2019 16:50 [facility] MEAN CELL VOLUME - [facility] 90.6 77 - 100 fl 04/07/2019 16:50 [facility] MONO # - [facility] 0.5 0.3 - 0.9 10e3/uL 04/07/2019 16:50 [facility] MONO% - [facility] 8.8 0 - 12 % 04/07/2019 16:50 [facility] PLATELET COUNT 198 150 - 400 10e3/ul 04/07/2019 16:50 [facility] RED BLOOD COUNT - [facility] 4.25 3.8 - 5.2 10e6/ul 04/07/2019 16:50 [facility] RED CELL DISTRI WIDTH - [facility] 12.5 11.8 - 15.6 % 04/07/2019 16:50 [facility] WHITE BLOOD COUNT - [facility] 5.6 3.5 - 10.5 10e3/ul 04/07/2019 16:50 [facility] 04/07/2019 16:2 6 EDT 04/07/2019 16:30 EDT Sheyla Atwood MD CHEMISTRY & BLOOD GA S ORDERABLES [facility] documented in this encounter Visit Diagnoses Not on filedocumented in this encounter Care Teams Rotary Driller Prospecting Relationship Specialty Start Date End Date Edison Miramontes DO PCP - General 05/14/17 08/22/19 Clint Miramontes MD [address] [place] [phone] PCP - General 08/23/19 documented as of this encounter
--- OUTSIDE RECORDS SUMMARY | 2024-08-07 13:40 | XMS_ITS | Encounter Summary ---
Author Organization [facility] Address [address] [place] [address] Care Team Providers Care Genetics Physician Name Role Phone Edison Miramontes DO Primary Care Provider [phone] Clint Miramontes MD Primary Care Provider [phone] Encounter Details Date Type Department Care Team (Late st Contact Info) Description 04/14/2018 Historical Results Only [facility] - [facility] Lab - Main [address] [address] [place] [address] [facility] [address] [place] [address] Social History Tobacco Use Types Packs/Day Years [...] EDT Appointment [facility] MRI [address] [place] [address] 08/16/2024 14:00 EDT EMILIA [facility] OBGYN Ultrasound [address] [place] [address] 08/29/2024 14:00 EDT Office Visit [facility] OBGYN [address] [place] [address] Ness Vilchis MD [address] [place] [address], [address] [place] [phone] 08/31/2024 16:00 EDT Office Visit [facility] Orthopedics & Sport Medicine [address], [address] [place], [place] [phone] Reema Peoples PA-C 1311 [facility] [place] [address] [place], [place] [phone] 09/01/2024 9:30 EDT Office Visit [facility] Rheumatology [address] [place] [phone] Lin Grider MD [address] [place] [address] [address] [place] [address] 11/08/2024 14:00 EST Office Visit [facility] Adult Hematology & Oncology [address] [place] [phone] Luz Maria Peter NP [address] [place] [address] [address] [place] [phone] 11/22/2024 10:15 EST Office Visit [facility] Family Medicine - [address] [address] Clint Miramontes MD [address] [place] [address] documented as of this encounter Procedures Procedure Name Priority Date/Time Associated Diagnosis Comments CBC W/PLT & DIFF,POINT OF CARE - [facility] Routine 04/14/2018 15:39 EDT documented in this encounter Results * CBC W/PLT & DIFF,POINT OF CARE - [facility] (04/14/2018 15:39 EDT) ABSOLUTE NEUTROPHIL COUN - [facility] 5.0 1.7 - 7.0 10e3/uL 04/14/2018 15:46 [facility] BASO # - [facility] 0.03 0.0 - 0.3 10e3/uL 04/14/2018 15:46 [facility] BASO % - [facility] 0 0 - 2 % 04/14/2018 15:46 [facility] EOS # - [facility] 0.21 0.05 - 0.5 10e3/uL 04/14/2018 15:46 [facility] EOS % - [facility] 3 0 - 5 % 04/14/2018 15:46 [facility] GRAN % - [facility] 67.0 40 - 80 % 04/14/2018 15:46 [facility] HEMATOCRIT - [facility] 39.1 34.0 - 47.0 % 04/14/2018 15:46 [facility] HEMOGLOBIN - [facility] 13.0 11.2 - 15.7 g/dl 04/14/2018 15:46 [facility] LYMPH # - [facility] 1.7 0.9 - 2.9 10e3/ul 04/14/2018 15:46 [facility] LYMPH% - [facility] 23.3 20 - 40 % 04/14/2018 15:46 [facility] MEAN CORPUSCULAR HGB - [facility] 30.5 26 - 34 pg 04/14/2018 15:46 [facility] MEAN CORPUSCULAR HGB CONC - [facility] 33.2 31 - 36 g/dL 04/14/2018 15:46 EDT [facility] MEAN CELL VOLUME - [facility] 91.8 77 - 100 fl 04/14/2018 [facility] 0.5 0.3 - 0.9 10e3/uL 04/14/2018 15:46 EDT [facility] MONO% - [facility] 6.5 0 - 12 % 04/14/2018 15[facility] 216 150 - 400 10e3/ul 04/14/2018 15:46 [facility] RED BLOOD COUNT - [facility] 4.26 3.8 - 5.2 10e6/ul 04/14/2018 15:46 [facility] RED CELL DISTRI WIDTH - [facility] 12.5 11.8 - 15.6 % 04/14/2018 15:46 [facility] WHITE BLOOD COUNT - [facility] 7.4 3.5 - 10.5 10e3/ul 04/14/2018 15:46 [facility] 04/14/2018 15:3 9 EDT 04/14/2018 15:42 EDT Sheyla Atwood MD CHEMISTRY & BLOOD GA S ORDERABLES [facility] documented in this encounter Visit Diagnoses Not on filedocumented in this encounter Care Teams Genetics Physician Relationship Specialty Start Date End Date Edison Miramontes DO PCP - General 05/14/17 08/22/19 Clint Miramontes MD [address] [place] [phone] PCP - General 08/23/19 documented as of this encounter
--- OUTSIDE RECORDS SUMMARY | 2024-08-07 13:40 | XMS_ITS | Encounter Summary ---
Author Organization [facility] Address [address] [place] [address] Care Team Providers Care Hcc Coders Name Role Phone Cooper Mojica MD Primary Care Provider [phone] Edison Miramontes DO Primary Care Provider [phone] Clint Miramontes MD Primary Care Provider [phone] Encounter Details Date Type Department Care Team (Late st Contact Info) Description 10/15/2016 Historical Results Only [facility] Lab - Main [place] [address] [place] [address] [place] [address] [facility] [address] [place] [address] Social History Tobacco Use Types Packs/Day Years [...] Contact Info) Description 08/10/2024 16:00 EDT Appointment [facility] MRI [address] [place], [place] [phone] 08/16/2024 14:00 EDT EMILIA [facility] OBGYN Ultrasound [address] [place], [place] [address] 08/29/2024 14:00 EDT Office Visit [facility] OBGYN [address] [place] [address] Ness Vilchis MD [address] [facility], [address] [place] [phone] 08/31/2024 16:00 EDT Office Visit [facility] Orthopedics & Sport Medicine [address], [address] [place] [address] Reema Peoples PA-C 1311 [facility] [address] [place], [place] [phone] 09/01/2024 9:30 EDT Office Visit [facility] Rheumatology [address] [place], [place] [phone] Lin Grider MD [address] [place] [address] [address] [place] [address] 11/08/2024 14:00 EST Office Visit [facility] Adult Hematology & Oncology [address] [place] [address] Luz Maria Peter NP 130 [facility] [address] [place] [address] 11/22/2024 10:15 EST Office Visit [facility] Family Medicine - [place] [address] [place] [address] Clint Miramontes MD [address] [place] [phone] documented as of this encounter Procedures Procedure Name Priority Date/Time Associated Diagnosis Comments CBC W/PLT & DIFF,POINT OF CARE - [facility] Routine 10/15/2016 14:58 EST documented in this encounter Results * CBC W/PLT & DIFF,POINT OF CARE - [facility] (10/15/2016 14:58 EST) ABSOLUTE NEUTROPHIL COUN - [facility] 2.9 1.7 - 7.0 10e3/uL 10/15/2016 15:19 [facility] BASO # - [facility] 0.03 0.0 - 0.3 10e3/uL 10/15/2016 15:19 [facility] BASO % - [facility] 1 0 - 2 % 10/15/2016 15:19 [facility] EOS # - [facility] 0.25 0.05 - 0.5 10e3/uL 10/15/2016 15:19 [facility] EOS % - [facility] 5 0 - 5 % 10/15/2016 15:19 [facility] GRAN % - [facility] 53.7 40 - 80 % 10/15/2016 15:19 [facility] HEMATOCRIT - [facility] 38.5 34.0 - 47.0 % 10/15/2016 15:19 [facility] HEMOGLOBIN - [facility] 12.7 11.2 - 15.7 g/dl 10/15/2016 15:19 [facility] LYMPH # - [facility] 1.7 0.9 - 2.9 10e3/ul 10/15/2016 15:19 [facility] LYMPH% - [facility] 31.7 20 - 40 % 10/15/2016 15:19 [facility] MEAN CORPUSCULAR HGB - [facility] 30.3 26 - 34 pg 10/15/2016 15:19 [facility] MEAN CORPUSCULAR HGB CONC - [facility] 33.0 31 - 36 g/dL 10/15/2016 15:19 [facility] MEAN CELL VOLUME - [facility] 91.9 77 - 100 fl 10/15/2016 15:19 [facility] MONO # - [facility] 0.5 0.3 - 0.9 10e3/uL 10/15/2016 15:19 [facility] MONO% - [facility] 9.3 0 - 12 % 10/15/2016 15:19 [facility] PLATELET COUNT 196 150 - 400 10e3/ul 10/15/2016 15:19 [facility] RED BLOOD COUNT - [facility] 4.19 3.8 - 5.2 10e6/ul 10/15/2016 15:19 [facility] RED CELL DISTRI WIDTH - [facility] 12.4 11.8 - 15.6 % 10/15/2016 15:19 [facility] WHITE BLOOD COUNT - [facility] 5.4 3.5 - 10.5 10e3/ul 10/15/2016 15:19 [facility] 10/15/2016 14:5 8 EST 10/15/2016 15:02 EST Sheyla [place] MD CHEMISTRY & BLOOD GA S ORDERABLES Performing Organization Address City/State/[facility] Co de Phone Number [facility] documented in this encounter Visit Diagnoses Not on filedocumented in this encounter Care Teams Hcc Coders Relationship Specialty Start Date End Date Cooper Mojica MD [address] [place] [address] PCP - General 03/27/10 05/13/17 Edison Miramontes DO [address] [place] [address] PCP - General 05/14/17 08/22/19 lCint Miramontes MD [address] [place] [phone] PCP - General 08/23/19 documented as of this encounter
--- OUTSIDE RECORDS SUMMARY | 2024-08-07 13:40 | XMS_ITS | Encounter Summary ---
Author Organization [facility] Address [address] [place] [address] Care Team Providers Care Accounts Receivable Clerk Name Role Phone Edison Miramontes DO Primary Care Provider Clint Miramontes MD Primary Care Provider [phone] Encounter Details Date Type Department Care Team (Late st Contact Info) Description 10/14/2017 Historical Results Only [facility] - [facility] Lab - Main [address] [address] [place] [address] [facility] [address] [place] [address] Social History Tobacco Use Types Packs/Day Years [...] 16:00 EDT Appointment [facility] MRI [address] [place] [address] 08/16/2024 14:00 EDT EMILIA [facility] OBGYN Ultrasound [address] [place] [address] 08/29/2024 14:00 EDT Office Visit [facility] OBGYN [address] [place] [address] Ness Vilchis MD [address] [place] [address], [address] [place] [phone] 08/31/2024 16:00 EDT Office Visit [facility] Orthopedics & Sport Medicine [address], [address] [place], [place] [phone] Reema Peoples PA-C 1311 [facility] [address] [place], [place] [phone] 09/01/2024 9:30 EDT Office Visit [facility] Rheumatology [address] [place] [phone] Lin Grider MD [address] [place] [address] [address] [place] [address] 11/08/2024 14:00 EST Office Visit [facility] Adult Hematology & Oncology [address] [place] [phone] Luz Maria Peter NP [address] [place] [address] [address] [place] [phone] 11/22/2024 10:15 EST Office Visit [facility] Family Medicine - [address] [address] Clint Miramontes MD [address] [place] [address] documented as of this encounter Procedures Procedure Name Priority Date/Time Associated Diagnosis Comments LDH Routine 10/14/2017 16:30 EST CBC W/PLT & DIFF,POINT OF CARE - [facility] Routine 10/14/2017 16:27 EST documented in this encounter Results * LDH (10/14/2017 16:30 EST) Pathologist [facility] LDH - [facility] 478 313 - 618 U/L 10/14/2017 18:16 [facility] 10/14/2017 16:3 0 EST 10/14/2017 16:52 EST Sheyla Atwood MD CHEMISTRY & BLOOD GA S ORDERABLES [facility] * CBC W/PLT & DIFF,POINT OF CARE - [facility] (10/14/2017 16:27 EST) Pathologist [facility] ABSOLUTE NEUTROPHIL COUN - [facility] 2.9 1.7 - 7.0 10e3/uL 10/14/2017 16:38 [facility] BASO # - [facility] 0.03 0.0 - 0.3 10e3/uL 10/14/2017 16:38 [facility] BASO % - [facility] 1 0 - 2 % 10/14/2017 16:38 [facility] EOS # - [facility] 0.20 0.05 - 0.5 10e3/uL 10/14/2017 16:38 [facility] EOS % - [facility] 4 0 - 5 % 10/14/2017 16:38 [facility] GRAN % - [facility] 52.5 40 - 80 % 10/14/2017 16:38 [facility] HEMATOCRIT - [facility] 38.6 34.0 - 47.0 % 10/14/2017 16:38 [facility] HEMOGLOBIN - [facility] 12.7 11.2 - 15.7 g/dl 10/14/2017 16:38 [facility] LYMPH # - [facility] 1.9 0.9 - 2.9 10e3/ul 10/14/2017 16:38 [facility] LYMPH% - [facility] 34.9 20 - 40 % 10/14/2017 16:38 [facility] MEAN CORPUSCULAR HGB - [facility] 30.4 26 - 34 pg 10/14/2017 16:38 [facility] MEAN CORPUSCULAR HGB CONC - [facility] 32.9 31 - 36 g/dL 10/14/2017 16:38 [facility] MEAN CELL VOLUME - [facility] 92.3 77 - 100 fl 10/14/2017 16:38 [facility] MONO # - [facility] 0.5 0.3 - 0.9 10e3/uL 10/14/2017 16:38 [facility] MONO% - [facility] 8.5 0 - 12 % 10/14/2017 16:38 [facility] PLATELET COUNT 199 150 - 400 10e3/ul 10/14/2017 16:38 [facility] RED BLOOD COUNT - [facility] 4.18 3.8 - 5.2 10e6/ul 10/14/2017 16:38 [facility] RED CELL DISTRI WIDTH - [facility] 12.6 11.8 - 15.6 % 10/14/2017 16:38 [facility] WHITE BLOOD COUNT - [facility] 5.6 3.5 - 10.5 10e3/ul 10/14/2017 16:38 [facility] 10/14/2017 16:2 7 EST 10/14/2017 16:27 EST Sheyla Atwood MD CHEMISTRY & BLOOD GA S ORDERABLES [facility] documented in this encounter Visit Diagnoses Not on filedocumented in this encounter Care Teams Accounts Receivable Clerk Relationship Specialty Start Date End Date Edison Miramontes DO PCP - General 05/14/17 08/22/19 Clint Miramontes MD [address] [place] [address] PCP - General 08/23/19 documented as of this encounter
--- OUTSIDE RECORDS SUMMARY | 2024-08-07 13:40 | XMS_ITS | Encounter Summary ---
Author Organization [facility] Address [address] [place] [address] Care Team Providers Care Development Mgr Name Role Phone Edison Miramontes DO Primary Care Provider [phone] Encounter Details Date Type Department Care Team (Latest Contact Info) Description 09/22/2018 11:44 EST - 09/22/2018 23:59 EST Hospital Encounter [facility] [address] [place] [address] Unknown, Provider, Discharge Disposition: Home or Self Care Social [...] tablet Take 2 Tablets by mouth daily. acetaminophen (TYLENOL) 500 mg tablet Take 2 Tabs by mouth every 6 hours as needed for Pain. 06/04/2010 09/19/2019 ALBUTEROL INHL Inhale as directed. Reported on 11/11/2016 09/19/2019 aspirin 325 mg tablet Take 1 Tab by mouth daily. 06/04/2010 06/05/2022 DIAZepam (VALIUM) 5 mg tablet 1 tab(s) orally during travel as needed 01/27/2014 05/07/2021 DIAZepam (VALIUM) 5 mg tablet Take 5 mg by mouth as needed for Anxiety (for flying). 09/19/2019 fluticasone (FLOVENT) 110 mcg/actuation inhaler Inhale as directed every 12 hours. Reported on 11/11/2016 09/19/2019 IBANDRONATE SODIUM (BONIVA ORAL) Take by mouth. Once monthly 09/19/2019 LORAZEPAM ORAL Take 1 mg by mouth at bedtime. 09/12/2010 09/19/2019 lovastatin (MEVACOR) 20 mg tablet Take 80 mg by mouth at bedtime. 09/19/2019 MULTIVITAMINS (MULTIVITAMIN ORAL) Take 1 Tab by mouth daily. 09/19/2019 oxyCODONE (ROXICODONE) 5 mg immediate release tablet Take 1 Tab by mouth every 4 hours as needed for Pain. Daily Max: 30 mg 8 Tab 11/11/2016 09/19/2019 documented as of this encounter Discharge Disposition Disposition Code Departure Means Destination Home or Self Detention documented in this encounter Plan of Treatment Upcoming Encounters Date Type Department Care Team (Late st Contact Info) Description 08/10/2024 16:00 EDT Appointment [facility] MRI [address] [place] [address] 08/16/2024 14:00 EDT EMILIA [facility] OBGYN Ultrasound [address] [place] [address] 08/29/2024 14:00 EDT Office Visit [facility] OBGYN [address] [place] [address] Ness Vilchis MD 130 [facility], [address] [place] [phone] 08/31/2024 16:00 EDT Office Visit [facility] Orthopedics & Sport Medicine [address], [address] [place] [address] Reema Peoples PA-C 1311 [facility] [address] [place], [place] [address] 09/01/2024 9:30 EDT Office Visit [facility] Rheumatology 130 [facility], [place] [phone] Lin Grider MD 130 [facility] [address] [place] [address] 11/08/2024 14:00 EST Office Visit [facility] Adult Hematology & Oncology [address] [place] [address], [place] [phone] Luz Maria Peter, GABRIEL 130 [facility] [address] [place] [address] 11/22/2024 10:15 EST Office Visit [facility] Family Medicine - [place] [address] [place] [address] Clint Miramontes MD [address] [place] [address] documented as of this encounter Visit Diagnoses Not on filedocumented in this encounter Care Teams Development Mgr Relationship Specialty Start Date End Date Edison Miramontes DO PCP - General 05/14/17 08/22/19 documented as of this encounter
--- OUTSIDE RECORDS SUMMARY | 2024-08-07 13:40 | XMS_ITS | Encounter Summary ---
Author Organization [facility] Address [address] [place] [address] Care Team Providers Care [place] Marshal Name Role Phone Cooper Mojica MD Primary Care Provider [phone] Edison Miramontes DO Primary Care Provider [phone] Clint Miramontes MD Primary Care Provider [phone] Encounter Details Date Type Department Care Team (Late st Contact Info) Description 01/16/2017 Historical Results Only [facility] Lab - Main [place] [address] [place] [address] Cooper Mojica MD [address] [place] [address] Social History Tobacco Use Types Packs/Day Years [...] Contact Info) Description 08/10/2024 16:00 EDT Appointment [facility] MRI [address] [place] [address] 08/16/2024 14:00 EDT EMILIA [facility] OBGYN Ultrasound [address] [place], [place] [phone] 08/29/2024 14:00 EDT Office Visit [facility] OBGYN [address] [place] [address] Ness Vilchis MD [address] [place], [address] [place] [address] 08/31/2024 16:00 EDT Office Visit [facility] Orthopedics & Sport Medicine [address], [address] [place] [address] Reema Peoples PA-C 1311 [facility] [address] [place], [place] [phone] 09/01/2024 9:30 EDT Office Visit [facility] Rheumatology [address] [place], [place] [phone] Lin Grider MD [address] [place] [address] [address] [place] [address] 11/08/2024 14:00 EST Office Visit [facility] Adult Hematology & Oncology [address] [place] [phone] Luz Maria Peter, GABRIEL 130 [facility] [address] [place] [address] 11/22/2024 10:15 EST Office Visit [facility] Family Medicine - [place] [address] [place], [place] [phone] Clint Miramontes MD [address] [place] [phone] documented as of this encounter Procedures Procedure Name Priority Date/Time Associated Diagnosis Comments LIPID PROFILE (INCLUDES CHOLESTEROL, TRIGLYCERIDES, HDL, LDL) Routine 01/16/2017 7:14 EDT documented in this encounter Results * (ABNORMAL) LIPID PROFILE (INCLUDES CHOLESTEROL, TRIGLYCERIDES, HDL, LDL) (01/16/2017 7:14 EDT) Triglyceride 206(H) 35 - 150 mg/dL 01/16/2017 8:45 EDT [facility] Cholesterol 207(H) 120 - 200 mg/dL 01/16/2017 8:45 EDT [facility] Chol/HDL Ratio 3.8 0 - 4.5 01/16/2017 8:45 EDT [facility] Comment: DESIRABLE RATIO IS LESS THAN 4.1 PATIENTS ARE CONSIDERED AT RISK: WOMEN RATIO >5 MEN RATIO >6 FASTING? - [facility] Yes 7:15 EDT [facility] HDL 54 40 - 60 mg/dL 01/16/2017 8:45 EDT [facility] LDL CHOLESTEROL - [facility] 112(H) 60 - 100 mg/dL 01/16/2017 8:45 EDT [facility] Non HDL Cholesterol 153 mg/dl 01/16/2017 8:45 EDT [facility] Comment: Desirable: ?Less than 130 Borderline High: ??130-159 High: ? 160-189 Very High: ?Greater than or equal to 190 01/16/2017 7:14 EDT 01/16/2017 7:14 EDT Narrative [facility] - 01/16/2017 8:45 EDT Does PT Have a Latex Allergy? NO Cooper Mojica MD CHEMISTRY & BLOOD GA S ORDERABLES [facility] documented in this encounter Visit Diagnoses Not on filedocumented in this encounter Care Teams [place] Marshal Relationship Specialty Start Date End Date Cooper Mojica MD [address] [place] [address] PCP - General 03/27/10 05/13/17 Edison Miramontes DO [address] [place] [address] PCP - General 05/14/17 08/22/19 Clint Miramontes MD [address] [place] [phone] PCP - General 08/23/19 documented as of this encounter
--- OUTSIDE RECORDS SUMMARY | 2024-08-07 13:40 | XMS_ITS | Encounter Summary ---
Author Organization [facility] Address [address] [place] [address] Care Team Providers Care Supervisor Road Administrator Name Role Phone Bhavik Miramontesel Cecilia ASIF Primary Care Provider [phone] Encounter Details Date Type Department Care Team (Late st Contact Info) Description 06/22/2019 Historical Results Only [facility] Radiology Results [address] [place], [place] [address] Lin Grider MD 130 [facility] [address] [place] [address] Social History Tobacco Use Types [...] EDT Appointment [facility] MRI [address] [place], [place] [address] 08/16/2024 14:00 EDT EMILIA [facility] OBGYN Ultrasound [address] [place], [place] [address] 08/29/2024 14:00 EDT Office Visit [facility] OBGYN [address] [place] [address] Ness Vilchis MD [address] [place] [address], [address] [place] [address] 08/31/2024 16:00 EDT Office Visit [facility] Orthopedics & Sport Medicine [address], [address] [place], [place] [phone] Reema Peoples, PA-C 13[address] [facility] [address] [place], [place] [phone] 09/01/2024 9:30 EDT Office Visit [facility] Rheumatology [address] [place] [phone] Lin Grider MD [address] [place] [address] [address] [place] [address] 11/08/2024 14:00 EST Office Visit [facility] Adult Hematology & Oncology [address] [place] [address] Luz Maria Peter, GABRIEL [address] [place] [address] [address] [place] [address] 11/22/2024 10:15 EST Office Visit [facility] Family Medicine - [place] [address] [place] [address] Clint Miramontes MD [address] [place] [phone] documented as of this encounter Procedures Procedure Name Priority Date/Time Associated Diagnosis Comments DXA BONE DENSITY 06/22/2019 15:5 2 EDT documented in this encounter Results * XR DEXA BONE DENSITY (06/22/2019 15:52 EDT) Anatomical Region Laterality Modality Wrist, Hip, L-spine Other 06/22/2019 15:5 2 EDT Narrative 06/23/2019 15:37 EDT ? EXAM: RADIOLOGY/DXA SCAN/BONE DENSITY ? EX. D/ (1552) ? CLINICAL INFORMATION: ? M81.0 OSTEOPOROSIS ? Indication: osteopenia; monitoring treatment; history of ? glucocorticoids; cancer; asthma or emphysema; ? Accession number: [id number] ? Clinical Information Provided by Patient: ? Has taken Glucocorticoids ? Is being treated for osteoporosis ? Has used the following medications: Boniva (i.e. ibandronate), Vitamin ? D ? Has the following medical conditions: Asthma or Emphysema, Cancer ? Patient maximum height was 58.75 ? Menopause Age 50 ? No regular weight bearing exercise ? Drinks caffeinated beverages ? Onset of menses at age 12 ? Number of children 2 ? Bone Density: Exam date 06/22/2019 ? Region ?BMD ? . ? (g/cm2) ?? T-score ?? Z-score ?? Classification ? AP Spine(L1-L4) ?0.855 ? -1.7 ?0.4 ?Osteopenia ? Femoral Neck(Left) ? 0.498 ? -3.2 ? -1.4 ?Osteoporosis ? Total Hip(Left) ?0.690 ? -2.1 ? -0.6 ?Osteopenia ? Femoral Neck(Right) ?0.597 ? -2.3 ? -0.5 ?Osteopenia ? Total Hip(Right) ? 0.815 ? -1.0 ?0.5 ?Normal ? Femoral Neck Mean ?0.547 ? -2.7 ? -0.9 ?Osteoporosis ? Total Hip Mean ? 0.752 ? -1.6 ?0.0 ?Osteopenia ? World Health Organization criteria for BMD impression classify ? patients as Normal (T-score at or above -1.0), Osteopenia (T-score ? between -1.0 and -2.5), or Osteoporosis (T-score at or below -2.5). ? 10-year Fracture Risk: ? FRAX not reported because: ? Some T-score for Spine Total or Hip Total or Femoral Neck at or ? below -2.5 ? Treated for osteoporosis ? Previous Exams: ? REGION ?EXAM ?AGE ?? BMD ?T-score ??BMD ?BMD ? . ? DATE ? (G/CM2) ? Change ? Change ? . ?vs Baseline vs Prev ? AP Spine(L1-L4) 06/22/2019 ?69 ?0.855 ?? -1.7 ? 0.068 ?0.072 ? . ? (8.7%)* ??(9.2%)* ? . ? 02/19/2016 ?65 ?0.784 ?? -2.4 ?- 0.003 ?? -0.003 ? . ?(-0.4%) ??(-0.4%) ? . ? 07/08/2011 ?61 ?0.787 ?? -2.4 ? PAGE 1 ? Signed Report ? (CONTINUED) ? Total Hip(Left) 06/22/2019 ?69 ?0.690 ?? -2.1 ?-0.033 ?0.003 ? . ?(-4.5%)* ??(0.5%) ? . ? 02/19/2016 ?65 ?0.686 ?? -2.1 ?- 0.036 ?0.036 ? . ?(-5.0%)* (-5.0%)* ? . ? 07/08/2011 ?61 ?0.723 ?? -1.8 ? *Denotes significance at 95% confidence level, LSC for AP Spine = ? 0.022 g/cm2, ??LSC for Total Hip = 0.027 g/cm2 ? Impression: The patient has osteoporosis, based on the Left Femoral ? Neck T-score. The patient has risk factors, including: history of ? glucocorticoid therapy. No significant bone loss was observed. ? Discussion: PATIENT UNDER TREATMENT WITH NO SIGNIFICANT BMD LOSS SINCE ? LAST EXAM. ? In an untreated patient, BMD typically declines with age. ??A lack of ? decline or gain is usually a sign that treatment is efficacious and ? fracture risk is reduced. It is important to ask patients whether they ? are taking their medications and to encourage continued and ? appropriate compliance with their osteoporosis therapies to reduce ? fracture risk. It is also important to review their risk factors and ? encourage appropriate calcium and vitamin D intakes, exercise, fall ? prevention and other lifestyle measures. ? Follow-Up: Consider a repeat BMD and Vertebral Fracture Assessment ? (VFA) exam in 2 years or sooner if medically necessary, to reassess ? this patient's status. ? Reported by:EDWARD/chay on 06/22/2019 3:46:00 PM. ?Reported By: Trent Burgess MD ? CC: ? Transcribed Date/Time: 06/23/2019 (1537) ? Retort Engineer: JHONNY ? Printed Date/Time: 07/20/2019 (7439) ? PAGE 2 ? Signed Report ? Procedure Note Trent Burgess MD, - 09/06/2019 EXAM: RADIOLOGY/DXA SCAN/BONE DENSITY EX. D/ (1552) CLINICAL INFORMATION: M81.0 OSTEOPOROSIS Indication: osteopenia; monitoring treatment; history of glucocorticoids; cancer; asthma or emphysema; Accession number: [id number] Clinical Information Provided by Patient: Has taken Glucocorticoids Is being treated for osteoporosis Has used the following medications: Boniva (i.e. ibandronate),Vitamin D Has the following medical conditions: Asthma or Emphysema, Cancer Patient maximum height was 58.75 Menopause Age 50 No regular weight bearing exercise Drinks caffeinated beverages Onset of menses at age 12 Number of children 2 Bone Density: Exam date 06/22/2019 Region BMD . (g/cm2) T-score Z-scoreClassification AP Spine(L1-L4) 0.855 -1.7 0.4 Osteopenia Femoral Neck(Left) 0.498 -3.2 -1.4Osteoporosis Total Hip(Left) 0.690 -2.1 -0.6 Osteopenia Femoral Neck(Right) 0.597 -2.3 -0.5 Osteopenia Total Hip(Right) 0.815 -1.0 0.5 Normal Femoral Neck Mean 0.547 -2.7 -0.9Osteoporosis Total Hip Mean 0.752 -1.6 0.0 Osteopenia World Health Organization criteria for BMD impression classify patients as Normal (T-score at or above -1.0), Osteopenia (T-score between -1.0 and -2.5), or Osteoporosis (T-score at or below -2.5). 10-year Fracture Risk: FRAX not reported because: Some T-score for Spine Total or Hip Total or Femoral Neck at or below -2.5 Treated for osteoporosis Previous Exams: REGION EXAM AGE BMD T-score BMD BMD . DATE (G/CM2) ChangeChange . vs Baseline vsPrev AP Spine(L1-L4) 06/22/2019 69 0.855 -1.7 0.068 0.072 . (8.7%)*(9.2%)* . 02/19/2016 65 0.784 -2.4 -0.003 -0.003 . (-0.4%)(-0.4%) . 07/08/2011 61 0.787 -2.4 PAGE 1 Signed Report (CONTINUED) Total Hip(Left) 06/22/2019 69 0.690 -2.1 -0.033 0.003 . (-4.5%)*(0.5%) . 02/19/2016 65 0.686 -2.1 -0.036 0.036 . (-5.0%)*(-5.0%)* . 07/08/2011 61 0.723 -1.8 *Denotes significance at 95% confidence level, LSC for AP Spine = 0.022 g/cm2, LSC for Total Hip = 0.027 g/cm2 Impression: The patient has osteoporosis, based on the Left Femoral Neck T-score. The patient has risk factors, including: history of glucocorticoid therapy. No significant bone loss was observed. Discussion: PATIENT UNDER TREATMENT WITH NO SIGNIFICANT BMD LOSSSINCE LAST EXAM. In an untreated patient, BMD typically declines with age. A lackof decline or gain is usually a sign that treatment is efficacious and fracture risk is reduced. It is important to ask patients whetherthey are taking their medications and to encourage continued and appropriate compliance with their osteoporosis therapies to reduce fracture risk. It is also important to review their risk factorsand encourage appropriate calcium and vitamin D intakes, exercise, fall prevention and other lifestyle measures. Follow-Up: Consider a repeat BMD and Vertebral Fracture Assessment (VFA) exam in 2 years or sooner if medically necessary, to reassess this patient's status. Reported by:EDWARD/chay on 06/22/2019 3:46:00 PM. Reported By: Trent Burgess MD CC: Transcribed Date/Time: 06/23/2019 (0912) Retort Engineer: JHONNY Printed Date/Time: 07/20/2019 (5642) PAGE 2 Signed Report Lin Grider MD IMG DEXA ORDERABLES documented in this encounter Visit Diagnoses Not on filedocumented in this encounter Care Teams Supervisor Road Administrator Relationship Specialty Start Date End Date Edison Miramontes DO PCP - General 05/14/17 08/22/19 documented as of this encounter
--- OUTSIDE RECORDS SUMMARY | 2024-08-07 13:40 | XMS_ITS | Encounter Summary ---
Author Organization [facility] Address [address] [place] [address] Care Team Providers Care Tennis Ball Coverer Hand Name Role Phone Cooper Mojica MD Primary Care Provider [phone] Edison Miramontes DO Primary Care Provider [phone] Clint Miramontes MD Primary Care Provider [phone] Encounter Details Date Type Department Care Team (Late st Contact Info) Description 10/21/2016 Historical Results Only [facility] Lab - Main [place] [address] [place] [address] Cooper Mojica MD [address] [place] [address] Social History Tobacco Use Types Packs/Day [...] Contact Info) Description 08/10/2024 16:00 EDT Appointment [facility] MRI [address] [place] [address] 08/16/2024 14:00 EDT EMILIA [facility] OBGYN Ultrasound [address] [place], [place] [phone] 08/29/2024 14:00 EDT Office Visit [facility] OBGYN [address] [place] [address] Ness Vilchis MD 130 [facility] [place], [address] [place] [address] 08/31/2024 16:00 EDT Office Visit [facility] Orthopedics & Sport Medicine [address], [address] [place] [address] Reema Peoples PA-C 13[address] [facility] [address] [place], [place] [phone] 09/01/2024 9:30 EDT Office Visit [facility] Rheumatology [address] [place], [place] [phone] Lin Grider MD [address] [place] [address] [address] [place] [address] 11/08/2024 14:00 EST Office Visit [facility] Adult Hematology & Oncology [address] [place] [phone] Luz Maria Peter, GABRIEL 130 [facility] [address] [place] [address] 11/22/2024 10:15 EST Office Visit [facility] Family Medicine - [place] [address] [place], [place] [phone] Clint Miramontes MD [address] [place] [phone] documented as of this encounter Procedures Procedure Name Priority Date/Time Associated Diagnosis Comments LIPID PROFILE (INCLUDES CHOLESTEROL, TRIGLYCERIDES, HDL, LDL) Routine 10/21/2016 6:52 EST documented in this encounter Results * (ABNORMAL) LIPID PROFILE (INCLUDES CHOLESTEROL, TRIGLYCERIDES, HDL, LDL) (10/21/2016 6:52 EST) Triglyceride 155(H) 35 - 150 mg/dL 10/21/2016 8:09 EST [facility] Cholesterol 180 120 - 200 mg/dL 10/21/2016 8:09 [facility] Chol/HDL Ratio 3.2 0 - 4.5 10/21/2016 8:09 [facility] Comment: DESIRABLE RATIO IS LESS THAN 4.1 PATIENTS ARE CONSIDERED AT RISK: WOMEN RATIO >5 MEN RATIO >6 FASTING? - [facility] Yes 6:52 EST [facility] HDL 56 40 - 60 mg/dL 10/21/2016 8:09 EST [facility] LDL CHOLESTEROL - [facility] 93 60 - 100 mg/dL 10/21/2016 8:09 [facility] Non HDL Cholesterol 124 mg/dl 10/21/2016 8:09 EST [facility] Comment: Desirable: ?Less than 130 Borderline High: ??130-159 High: ? 160-189 Very High: ?Greater than or equal to 190 10/21/2016 6:52 EST 10/21/2016 6:52 EST Narrative [facility] - 10/21/2016 8:09 EST Does PT Have a Latex Allergy? NO Cooper Mojica MD CHEMISTRY & BLOOD GA S ORDERABLES [facility] documented in this encounter Visit Diagnoses Not on filedocumented in this encounter Care Teams Tennis Ball Coverer Hand Relationship Specialty Start Date End Date Cooper Mojica MD [address] [place] [address] PCP - General 03/27/10 05/13/17 Edison Miramontes DO [address] [place] [address] PCP - General 05/14/17 08/22/19 Clint Mriamontes MD [address] [place] [phone] PCP - General 08/23/19 documented as of this encounter
--- OUTSIDE RECORDS SUMMARY | 2024-08-07 13:40 | XMS_ITS | Encounter Summary ---
Author Organization [facility] Address [address] [place] [address] Care Team Providers Care Shingle Packer Name Role Phone Edison Miramontes DO Primary Care Provider [phone] Clint Miramontes MD Primary Care Provider [phone] Encounter Details Date Type Department Care Team (Late st Contact Info) Description 10/15/[address] [facility] - Main [place] [address] [place], [place] [phone] Clint Miramontes MD [address] [place] [address] Social History Tobacco Use Types Packs/Day [...] Contact Info) Description 08/10/2024 16:00 EDT Appointment [facility] MRI [address] [place] [address] 08/16/2024 14:00 EDT EMILIA [facility] OBGYN Ultrasound [address] [place] [address] 08/29/2024 14:00 EDT Office Visit [facility] OBGYN [address] [place] [address] Ness Vilchis MD [address] [place] [address], [address] [place] [phone] 08/31/2024 16:00 EDT Office Visit [facility] Orthopedics & Sport Medicine [address], [address] [place], [place] [phone] Reema Peoples PA-Mukund [address] [facility] [address] [place], [place] [phone] 09/01/2024 9:30 EDT Office Visit [facility] Rheumatology [address] [place] [phone] Lin Grider MD [address] [place] [address] [address] [place] [address] 11/08/2024 14:00 EST Office Visit [facility] Adult Hematology & Oncology [address] [place] [phone] Luz Maria Peter NP [address] [place] [address] [address] [place] [address] 11/22/2024 10:15 EST Office Visit [facility] Family Medicine - [address] [address] Clint Miramontes MD [address] [place] [phone] documented as of this encounter Procedures Procedure Name Priority Date/Time Associated Diagnosis Comments VIT D, 25-HYDROXY - [facility] Routine 10/15/2017 7:32 EST LIPID PROFILE (INCLUDES CHOLESTEROL, TRIGLYCERIDES, HDL, LDL) Routine 10/15/2017 7:32 EST COMPREHENSIVE METABOLIC PANEL (CMP) Routine 10/15/2017 7:32 EST documented in this encounter Results * (ABNORMAL) LIPID PROFILE (INCLUDES CHOLESTEROL, TRIGLYCERIDES, HDL, LDL) (10/15/2017 7:32 EST) Triglyceride 82 <150 mg/dL 10/15/2017 10:55 [facility] Comment: Adult: Normal: ?<150 mg/dl ? Borderline High: 150-199 mg/dl ? High: ?200-499 mg/dl ? Very High: >yn=050 Cholesterol 202(H) <200 mg/dL 10/15/2017 10:55 [facility] Comment: Acceptable: ??<200 Borderline: ??200-239 High: ?> or = 240 Chol/HDL Ratio 3.6 0 - 4.5 10/15/2017 10:55 [facility] Comment: DESIRABLE RATIO IS LESS THAN 4.1 PATIENTS ARE CONSIDERED AT RISK: WOMEN RATIO >5 MEN RATIO >6 FASTING? - [facility] Yes 7:32 [facility] HDL 55 40 - 60 mg/dL 10/15/2017 10:55 [facility] Comment: ?? Reference Range Low: ? < 40 ??mg/dL Normal: ??40-60 mg/dL High: ?>= 60 mg/dL LDL CHOLESTEROL - [facility] 131(H) 60 - 100 mg/dL 10/15/2017 10:55 [facility] Non HDL Cholesterol 147 mg/dl 10/15/2017 10:55 [facility] Comment: Desirable: ?Less than 130 Borderline High: ??130-159 High: ? 160-189 Very High: ?Greater than or equal to 190 10/15/2017 7:32 EST 10/15/2017 7:32 EST Narrative [facility] - 10/15/2017 10:55 EST Does PT Have a Latex Allergy? NO Clint Miramontes MD CHEMISTRY & BLOOD GA S ORDERABLES [facility] * COMPREHENSIVE METABOLIC PANEL (CMP) (10/15/2017 7:32 EST) Albumin % 4.5 3.4 - 4.9 g/dL 10/15/2017 10:55 [facility] ALKALINE PHOSPHATASE - [facility] 43 38 - 126 U/L 10/15/2017 10:55 [facility] BILIRUBIN TOTAL 0.6 0.2 - 1.3 mg/dL 10/15/2017 10:55 [facility] BUN - [facility] 14 10 - 26 mg/dL 10/15/2017 10:55 [facility] CALCIUM - [facility] 9.6 8.5 - 10.5 mg/dL 10/15/2017 10:55 [facility] Chloride 101 96 - 110 mmol/L 10/15/2017 10:55 [facility] CO2 Total 26 22 - 32 mEq/L 10/15/2017 10:55 [facility] CREATININE 0.69 0.52 - 1.04 mg/dL 10/15/2017 10:55 [facility] eGFR >60 10/15/2017 10:55 [facility] Comment: Chronic renal impairment is defined as GFR <60 Multiply result by 1.210 for patients. eGFR calculated using the IDMS-traceable MDRD Study Equation. ??(effective 09/04/2014) Anion Gap 16 0 - 18 10/15/2017 10:55 [facility] GLUCOSE - [facility] 85 70 - 100 mg/dL 10/15/2017 10:55 [facility] Potassium 4.5 3.5 - 5.0 mEq/L 10/15/2017 10:55 [facility] Sodium 143 136 - 145 mEq/L 10/15/2017 10:55 [facility] TOTAL PROTEIN - [facility] 6.9 6.2 - 8.2 gm/dL 10/15/2017 10:55 [facility] SGOT/AST - [facility] 22 14 - 36 U/L 10/15/2017 10:55 [facility] SGPT/ALT - [facility] 30 9 - 52 U/L 7 10:55 [facility] 10/15/2017 7:32 EST 10/15/2017 7:32 EST Narrative [facility] - 10/15/2017 10:55 EST Does PT Have a Latex Allergy? NO Clint Miramontes MD CHEMISTRY & BLOOD GA S ORDERABLES [facility] * VIT D, 25-HYDROXY - [facility] (10/15/2017 7:32 EST) VIT D, 25 HYDROXY - [facility] 40.5 30 - 100 ng/ml 10/15/2017 10:58 [facility] Comment: ? 25-Hydroxy D Total (D2+D3) ?Expected Values Deficient: ?<20 ng/ml Insufficient: ? 20- <30 ng/ml Sufficient: ? 30-100 ng/ml Potential intoxication: >100 ng/ml 10/15/2017 7:32 EST 10/15/2017 7:32 EST Narrative [facility] - 10/15/2017 10:58 EST Does PT Have a Latex Allergy? NO Clint Miramontes MD CHEMISTRY & BLOOD GA S ORDERABLES [facility] documented in this encounter Visit Diagnoses Not on filedocumented in this encounter Care Teams Shingle Packer Relationship Specialty Start Date End Date Edison Miramontes DO PCP - General 05/14/17 08/22/19 Clint Miramontes MD [address] [place] [phone] PCP - General 08/23/19 documented as of this encounter
--- OUTSIDE RECORDS SUMMARY | 2024-08-07 13:40 | XMS_ITS | Encounter Summary ---
Author Organization [facility] Address [address] [place] [address] Care Team Providers Care Pleasure Craft Sailor Name Role Phone Cooper Mojica MD Primary Care Provider [phone] Encounter Details Date Type Department Care Team (Latest Contact Info) Description 03/17/2017 9:05 EDT - 03/17/2017 23:[address] [facility] [address] [place] [address] Unknown, Provider, Discharge Disposition: Home or Self [...] on file documented as of this encounter Medications at [...] during travel as needed 01/27/2014 05/07/2021 fluticasone (FLOVENT) 110 mcg/actuation inhaler Inhale as [...] Code Departure Means Destination Home or Self Group Home documented in this encounter Plan of Treatment Upcoming Encounters Date Type Department Care Team (Late st Contact Info) Description 08/10/2024 16:00 EDT Appointment [facility] MRI [address] [place], [place] [phone] 08/16/2024 14:00 EDT EMILIA [facility] OBGYN Ultrasound [address] [place] [address] 08/29/2024 14:00 EDT Office Visit [facility] OBGYN [address] [place], [place] [address] Ness Vilchis MD 130 [facility], [address] [place] [phone] 08/31/2024 16:00 EDT Office Visit [facility] Orthopedics & Sport Medicine [address], [address] [place], [place] [address] Reema Peoples PA-C 13[address] [facility] [address] [place], [place] [phone] 09/01/2024 9:30 EDT Office Visit [facility] Rheumatology [address] [place] [address] Lin Grider MD [address] [facility] [address] [place] [address] 11/08/2024 14:00 EST Office Visit [facility] Adult Hematology & Oncology [address] [place] [address], [place] [address] Luz Maria Peter NP 130 [facility], [facility] [address] [place] [address] 11/22/2024 10:15 EST Office Visit [facility] Family Medicine - [place] [address] [place] [address] Clint Miramontes MD [address] [place] [phone] documented as of this encounter Visit Diagnoses Not on filedocumented in this encounter Care Teams Pleasure Craft Sailor Relationship Specialty Start Date End Date Cooper Mojica MD [address] [place] [phone] PCP - General 03/27/10 05/13/17 documented as of this encounter
--- OUTSIDE RECORDS SUMMARY | 2024-08-07 13:40 | XMS_ITS | Encounter Summary ---
Author Organization [facility] Address [address] [place] [address] Care Team Providers Care Rn Charge Name Role Phone Edison Miramontes DO Primary Care Provider [phone] Encounter Details Date Type Department Care Team (Latest Contact Info) Description 04/04/2019 9:28 EDT - 04/04/2019 23:59 EDT Hospital Encounter [address] [address] Unknown, Provider, Discharge Disposition: Home or Self [...] Code Departure Means Destination Home or Self [facility] documented in this encounter Plan of Treatment Upcoming Encounters Date Type Department Care Team (Late st Contact Info) Description 08/10/2024 16:00 EDT Appointment [facility] MRI [address] [place] [address] 08/16/2024 14:00 EDT EMILIA [facility] OBGYN Ultrasound [address] [place] [address] 08/29/2024 14:00 EDT Office Visit [facility] OBGYN [address] [place] [address] Ness Vilchis MD [address] [facility], [address] [place] [address] 08/31/2024 16:00 EDT Office Visit [facility] Orthopedics & Sport Medicine [address] [place] [address] Reema Peoples PA-C 1311 [facility] [address] [place], [place] [address] 09/01/2024 9:30 EDT Office Visit [facility] Rheumatology 130 [facility] [place] [phone] Lin Grider MD 130 [facility] [address] [place] [address] 11/08/2024 14:00 EST Office Visit [facility] Adult Hematology & Oncology [address] [place] [address], [place] [phone] Luz Maria Peter NP 130 [facility] [address] [place] [address] 11/22/2024 10:15 EST Office Visit [facility] Family Medicine - [place] [address] [place] [address] Clint Miramontes MD [address] [place] [phone] documented as of this encounter Visit Diagnoses Not on filedocumented in this encounter Care Teams Rn Charge Relationship Specialty Start Date End Date Edison Miramontes DO PCP - General 05/14/17 08/22/19 documented as of this encounter
--- OUTSIDE RECORDS SUMMARY | 2024-08-07 13:40 | XMS_ITS | Encounter Summary ---
Author Organization [facility] Address [address] [place] [address] Care Team Providers Care Emergency Spill Response Technician Name Role Phone Cooper Mojica MD Primary Care Provider [phone] Edison Miramontes DO Primary Care Provider [phone] Encounter Details Date Type Department Care Team (Late Contact Info) Description 03/18/2016 Historical Results Only [facility] Radiology Results [address] [place], [place] [address] Hannah Hogue APRN [address] [place] [phone] Social History Tobacco Use Types Packs/Day Years [...] Encounters Date Type Department Care Team (Late Contact Info) Description 08/10/2024 16:00 EDT Appointment [facility] MRI [address] [place], [place] [address] 08/16/2024 14:00 EDT EMILIA [facility] OBGYN Ultrasound [address] [place], [place] [phone] 08/29/2024 14:00 EDT Office Visit [facility] OBGYN [address] [place], [place] [address] Ness Vilchis MD 130 [facility], [address] [place] [phone] 08/31/2024 16:00 EDT Office Visit [facility] Orthopedics & Sport Medicine [address], [address] [place] [address] Reema Peoples PA-C [address] [facility] [address] [place], [place] [phone] 09/01/2024 9:30 EDT Office Visit [facility] Rheumatology [address] [place], [place] [phone] Lin Grider MD [address] [place] [address] [address] [place] [address] 11/08/2024 14:00 EST Office Visit [facility] Adult Hematology & Oncology [address] [place] [phone] Luz Maria Peter NP 130 [facility] [address] [place] [address] 11/22/2024 10:15 EST Office Visit [facility] Family Medicine - [place] [address] [place] [address] Clint Miramontes MD [address] [place] [phone] documented as of this encounter Procedures Procedure Name Priority Date/Time Associated Diagnosis Comments XR THORACIC SPINE 3 VIEWS 03/18/2016 13:34 EDT XR CHEST 2 VIEWS 03/18/2016 12:1 3 EDT XR LUMBAR SPINE COMPLETE WITH FLEX/EXT AND OBLIQUES MIN 6 VIEWS 03/18/2016 12:11 EDT documented in this encounter Results * XR THORACIC SPINE 3 VIEWS (03/18/2016 13:34 EDT) Anatomical Region Laterality Modality Spine Other 03/18/2016 13:3 4 EDT Narrative 03/18/2016 13:39 EDT ? EXAM: RADIOLOGY/THORACIC SPINE 2 VIEW ? EX. D/ (1205) ? CLINICAL INFORMATION: ? M54.5, BACK PAIN AT L4-L5 LEVEL ? Indication: M54.5, BACK PAIN AT L4-L5 LEVEL. ? Comparison: None. ? Technique: AP, lateral swimmer's and lateral views of the thoracic ? spine were obtained. ? Findings: The bones are osteopenic. Degenerative disc disease is ? present throughout the thoracic spine and visualized portions of the ? cervical spine. There is a scoliosis of the lower thoracic spine, ? apex to the right centered at the T10-T11 disc space. No structural ? vertebral body abnormality is identified. No fracture or subluxation ? is seen. The thoracic kyphosis is mildly accentuated. ? IMPRESSION: ? 1. Thoracic spondylosis. ? 2. Osteopenia. ? REPORT SIGNED IN OTHER VENDOR SYSTEM 03/18/2016 ?Reported By: Bharath Patel MD ? CC: ? Transcribed Date/Time: 03/18/2016 (0338) ? Medical Genetics Director: ? Printed Date/Time: 04/15/2019 (8404) ? PAGE 1 ? Signed Report ? Procedure Note Bharath Patel MD - 09/07/2019 EXAM: RADIOLOGY/THORACIC SPINE 2 VIEW EX. D/ (1205) CLINICAL INFORMATION: M54.5, BACK PAIN AT L4-L5 LEVEL Indication: M54.5, BACK PAIN AT L4-L5 LEVEL. Comparison: None. Technique: AP, lateral swimmer's and lateral views of the thoracic spine were obtained. Findings: The bones are osteopenic. Degenerative disc disease is present throughout the thoracic spine and visualized portions ofthe cervical spine. There is a scoliosis of the lower thoracic spine, apex to the right centered at the T10-T11 disc space. No structural vertebral body abnormality is identified. No fracture orsubluxation is seen. The thoracic kyphosis is mildly accentuated. IMPRESSION: 1. Thoracic spondylosis. 2. Osteopenia. REPORT SIGNED IN OTHER VENDOR SYSTEM 03/18/2016 Reported By: Bharath Patel MD CC: Transcribed Date/Time: 03/18/2016 (8943) Medical Genetics Director: Printed Date/Time: 04/15/2019 (6021) PAGE 1 Signed Report Hannah Hogue MERCHANDISE HAND[employer]ER IMG DIAGNOSTIC I MAGING ORDERABLES * XR CHEST 2 VIEWS (03/18/2016 12:13 EDT) Anatomical Region Laterality Modality Other 03/18/2016 12:1 3 EDT Narrative 03/18/2016 12:18 EDT ? EXAM: RADIOLOGY/CHEST (PA ?? LAT) ?EX. D/ (1205) ? CLINICAL INFORMATION: ? 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 NECK R/O MASS/OPACITY. ? Comparison: Chest x-ray 08/08/2014. ? Technique: 2 views of the chest were obtained. ? Findings: The cardiomediastinal silhouette and pulmonary vasculature ? are within normal limits. The lungs are clear. No pleural effusion or ? pneumothorax is seen. There are degenerative changes and mild ? scoliosis of the thoracolumbar spine. ? Impression: No acute process. ? REPORT SIGNED IN OTHER VENDOR SYSTEM 03/18/2016 ?Reported By: Bharath Patel MD ? CC: ? Transcribed Date/Time: 03/18/2016 (1218) ? Medical Genetics Director: ? Printed Date/Time: 04/15/2019 (0159) ? PAGE 1 ? Signed Report ? Procedure Note Bharath Patel MD - 09/07/2019 EXAM: RADIOLOGY/CHEST (PA LAT) EX. 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 Comparison: Chest x-ray 08/08/2014. Technique: 2 views of the chest were obtained. Findings: The cardiomediastinal silhouette and pulmonaryvasculature are within normal limits. The lungs are clear. No pleural effusionor pneumothorax is seen. There are degenerative changes and mild scoliosis of the thoracolumbar spine. Impression: No acute process. REPORT SIGNED IN OTHER VENDOR SYSTEM 03/18/2016 Reported By: Bharath Patel MD CC: Transcribed Date/Time: 03/18/2016 (1218) Medical Genetics Director: Printed Date/Time: 04/15/2019 (9463) PAGE 1 Signed Report Hannah Foy Mykle [employer]CH[employer] [employer] IMG DIAGNOSTIC I MAGING ORDERABLES * XR LUMBAR SPINE COMPLETE WITH FLEX/EXT AND OBLIQUES MIN 6 VIEWS (03/18/2016 12:11 EDT) Anatomical Region Laterality Modality Other 03/18/2016 12:1 1 EDT Narrative 03/18/2016 12:16 EDT ? EXAM: RADIOLOGY/LUMBAR SPINE WITH FLEX/EX EX. D/ (4275) ? CLINICAL INFORMATION: ? M54.5, BACK PAIN AT L4-L5 LEVEL ? Indication: M54.5, BACK PAIN AT L4-L5 LEVEL. ? Comparison: None. ? Technique: AP, lateral neutral and lateral flexion and extension ? views were obtained. ? Findings: Degenerative disc disease and facet arthritis is present ? throughout the lumbar spine. There is minimal retrolisthesis of L3 ? and mild anterolisthesis of L4 which does not change with either ? flexion or extension. Bone density is normal. No focal osteolytic or ? osteoblastic lesion is identified. No fracture is identified. There ? is a scoliosis of the lumbar spine, apex to the left centered at the ? L2-L3 disc space. There are mild degenerative changes within the ? sacroiliac joints. Incidental note is made of a calcified uterine ? fibroid. ? IMPRESSION: ? 1. Lumbar spondylosis. ? REPORT SIGNED IN OTHER VENDOR SYSTEM 03/18/2016 ?Reported By: Bharath Patel MD ? CC: ? Transcribed Date/Time: 03/18/2016 (1216) ? Medical Genetics Director: ? Printed Date/Time: 04/15/2019 (0159) ? PAGE 1 ? Signed Report ? Procedure Note Bharath Patel MD - 09/07/2019 EXAM: RADIOLOGY/LUMBAR SPINE WITH FLEX/EX EX. D/ (1205) CLINICAL INFORMATION: M54.5, BACK PAIN AT L4-L5 LEVEL Indication: M54.5, BACK PAIN AT L4-L5 LEVEL. Comparison: None. Technique: AP, lateral neutral and lateral flexion and extension views were obtained. Findings: Degenerative disc disease and facet arthritis is present throughout the lumbar spine. There is minimal retrolisthesis of L3 and mild anterolisthesis of L4 which does not change with either flexion or extension. Bone density is normal. No focal osteolyticor osteoblastic lesion is identified. No fracture is identified. There is a scoliosis of the lumbar spine, apex to the left centered atthe L2-L3 disc space. There are mild degenerative changes within the sacroiliac joints. Incidental note is made of a calcified uterine fibroid. IMPRESSION: 1. Lumbar spondylosis. REPORT SIGNED IN OTHER VENDOR SYSTEM 03/18/2016 Reported By: Bharath Patel MD CC: Transcribed Date/Time: 03/18/2016 (0336) Medical Genetics Director: Printed Date/Time: 04/15/2019 (6198) PAGE 1 Signed Report Hannah Hogue [employer]CH[employer] [employer] IMG DIAGNOSTIC I MAGING ORDERABLES documented in this encounter Visit Diagnoses Not on filedocumented in this encounter Care Teams Emergency Spill Response Technician Relationship Specialty Start Date End Date Cooper Mojica MD [address] [place], [place] [phone] PCP - General 03/27/10 05/13/17 Edison Miramontes DO [address] [place] [address] PCP - General 05/14/17 08/22/19 documented as of this encounter
--- OUTSIDE RECORDS SUMMARY | 2024-08-07 13:40 | XMS_ITS | Encounter Summary ---
Author Organization [facility] Address [address] [place] [address] Care Team Providers Care Stator Connector Name Role Phone Cooper Mojica MD Primary Care Provider Edison Miramontes DO Primary Care Provider Clint Miramontes MD Primary Care Provider [phone] Encounter Details Date Type Department Care Team (Late st Contact Info) Description 03/18/2017 Historical Results Only [facility] Radiology Results [address] [place] [address] Cooper Mojica MD [address] [place] [address] Social History Tobacco Use Types Packs/Day [...] Contact Info) Description 08/10/2024 16:00 EDT Appointment [facility] MRI [address] [place] [address] 08/16/2024 14:00 EDT EMILIA [facility] OBGYN Ultrasound [address] [place], [place] [phone] 08/29/2024 14:00 EDT Office Visit [facility] OBGYN [address] [facility] [place] [address] Ness Vilchis MD 130 [facility], [address] [place] [phone] 08/31/2024 16:00 EDT Office Visit [facility] Orthopedics & Sport Medicine [address], [address] [place] [address] Reema Peoples PA-C [address] [facility] [address] [place], [place] [phone] 09/01/2024 9:30 EDT Office Visit [facility] Rheumatology [address] [place], [place] [phone] Lin Grider MD [address] [place] [address] [address] [place] [address] 11/08/2024 14:00 EST Office Visit [facility] Adult Hematology & Oncology [address] [place] [address], [place] [address] Luz Maria Peter, CREDIT HISTORIAN 130 [facility] [address] [place] [address] 11/22/2024 10:15 EST Office Visit [facility] Family Medicine - [place] [address] [place], [place] [phone] Clint Miramontes MD [address] [place] [phone] documented as of this encounter Procedures Procedure Name Priority Date/Time Associated Diagnosis Comments MA BREAST SCREENING ELO BILATERAL 03/18/2017 12:21 EDT documented in this encounter Results * MA BREAST SCREENING ELO BILATERAL (03/18/2017 12:21 EDT) Anatomical Region Laterality Modality Breast Bilateral Other 03/18/2017 12:2 1 EDT Narrative 03/18/2017 12:22 EDT ? EXAM: MAMMOGRAM/MAMMO BILATERAL SCREEN W ??EX. D/ (1844) ? CLINICAL INFORMATION: ? Z12.31 SCREENING ? [...] evidence of cancer. The breast tissue is of ? scattered density. ? FINAL ASSESSMENT: ??BILATERAL BREAST - Category 1 - Negative. Routine ? mammographic follow-up is recommended. ? These results will be communicated to your patient via a lay letter ? from Radiology. ??If any additional imaging is needed we will contact ? your patient directly. ? REPORT SIGNED IN OTHER VENDOR SYSTEM 03/18/2017 ?Reported By: Bernardo Rosa MD ? CC: [facility] ? Transcribed Date/Time: 03/18/2017 (1222) ? Transcribing Operator Head: ? Printed Date/Time: 04/18/2019 (8499) ? PAGE 1 ? Signed Report ? Procedure Note Bernardo Rosa MD - 09/07/2019 EXAM: MAMMOGRAM/MAMMO BILATERAL SCREEN W EX. D/ (1844) CLINICAL INFORMATION: Z12.31 SCREENING TECHNIQUE: Full field digital whole breast 2D (C-view) and 3D CCand MLO views of both breasts were obtained. CAD technology wasutilized. FINDINGS: The fibroglandular patterns of the breasts are normal. There has been no change when compared to previous mammograms and there is no mammographic evidence of cancer. The breast tissue isof scattered density. FINAL ASSESSMENT: BILATERAL BREAST - Category 1 - Negative.Routine mammographic follow-up is recommended. These results will be communicated to your patient via a lay letter from Radiology. If any additional imaging is needed we willcontact your patient directly. REPORT SIGNED IN OTHER VENDOR SYSTEM 03/18/2017 Reported By: Bernardo Rosa MD CC: [facility] Transcribed Date/Time: 03/18/2017 (4870) Transcribing Operator Head: Printed Date/Time: 04/18/2019 (1940) PAGE 1 Signed Report Cooper Mojica MD IMG MAMMOGRAPHY [facility] documented in this encounter Visit Diagnoses Not on filedocumented in this encounter Care Teams Stator Connector Relationship Specialty Start Date End Date Cooper Mojica MD [address] [place] [address] PCP - General 03/27/10 05/13/17 Edison Miramontes DO [address] [place] [address] PCP - General 05/14/17 08/22/19 Clint Miramontes MD [address] [place] [phone] (work) PCP - General 08/23/19 documented as of this encounter
--- OUTSIDE RECORDS SUMMARY | 2024-08-07 13:40 | XMS_ITS | Encounter Summary ---
Author Organization [facility] Address [address] [place] [address] Care Team Providers Care Hot Billet Shear Operator Name Role Phone Cooper Mojica MD Primary Care Provider [phone] Edison Miramontes DO Primary Care Provider [phone] Clint Miramontes MD Primary Care Provider [phone] Encounter Details Date Type Department Care Team (Late st Contact Info) Description 05/04/2017 Historical Results Only [facility] [place] [address] [place] [address] Clint Miramontes MD [address] [place] [phone] Social History Tobacco Use Types Packs/Day Years [...] 16:00 EDT Appointment [facility] MRI [address] [place], [place] [phone] 08/16/2024 14:00 EDT EMILIA [facility] OBGYN Ultrasound [address] [place] [address] 08/29/2024 14:00 EDT Office Visit [facility] OBGYN [address] [place] [address] Ness Vilchis MD 130 [facility], [address] [place] [phone] 08/31/2024 16:00 EDT Office Visit [facility] Orthopedics & Sport Medicine [address] [place] [address] Reema Peoples PA-C [address] [facility] [address] [place], [place] [phone] 09/01/2024 9:30 EDT Office Visit [facility] Rheumatology [address] [place], [place] [phone] Lin Grider MD [address] [place] [address] [address] [place] [address] 11/08/2024 14:00 EST Office Visit [facility] Adult Hematology & Oncology [address] [place] [phone] Luz Maria Peter NP 130 [facility] [address] [place] [address] 11/22/2024 10:15 EST Office Visit [facility] Family Medicine - [place] [address] [place] [address] Clint Miramontes MD [address] [place] [phone] documented as of this encounter Procedures Procedure Name Priority Date/Time Associated Diagnosis Comments LIPID PROFILE (INCLUDES CHOLESTEROL, TRIGLYCERIDES, HDL, LDL) Routine 05/04/2017 6:52 EDT documented in this encounter Results * (ABNORMAL) LIPID PROFILE (INCLUDES CHOLESTEROL, TRIGLYCERIDES, HDL, LDL) (05/04/2017 6:52 EDT) Triglyceride 79 35 - 150 mg/dL 05/04/2017 8:05 EDT [facility] Cholesterol 209(H) 120 - 200 mg/dL 05/04/2017 8:05 EDT [facility] Chol/HDL Ratio 4.0 0 - 4.5 05/04/2017 8:05 EDT [facility] Comment: DESIRABLE RATIO IS LESS THAN 4.1 PATIENTS ARE CONSIDERED AT RISK: WOMEN RATIO >5 MEN RATIO >6 FASTING? [place] [facility] [place] 7 6:52 EDT [facility] HDL 51 40 - 60 mg/dL 05/04/2017 8:05 EDT [facility] LDL CHOLESTEROL [place] [facility] [place] 142(H) 60 - 100 mg/dL 05/04/2017 8:05 EDT [facility] Non HDL Cholesterol 158 mg/dl 05/04/2017 8:05 EDT [facility] Comment: Desirable: ?Less than 130 Borderline High: ??130-159 High: ? 160-189 Very High: ?Greater than or equal to 190 05/04/2017 6:52 EDT 05/04/2017 6:52 EDT Narrative [facility] - 05/04/2017 8:05 EDT Does PT Have a Latex Allergy? NO Clint Miramontes MD CHEMISTRY & BLOOD GA S ORDERABLES [facility] documented in this encounter Visit Diagnoses Not on filedocumented in this encounter Care Teams Hot Billet Shear Operator Relationship Specialty Start Date End Date Cooper Mojica MD [address] [place], [place] [phone] PCP - General 03/27/10 05/13/17 Edison Miramontes DO [address] [place] [address] PCP - General 05/14/17 08/22/19 Clint Miramontes MD [address] [place] [phone] PCP - General 08/23/19 documented as of this encounter
--- OUTSIDE RECORDS SUMMARY | 2024-08-07 13:40 | XMS_ITS | Encounter Summary ---
Author Organization [facility] Address [address] [place] [address] Care Team Providers Care Nursery Teacher Name Role Phone Edison Miramontes DO Primary Care Provider [phone] Reason for Visit * Reason Comments Diplopia Having horizontal di plopia for the last 6 months. * Consult (Routine) - Closed Specialty Diagnoses / Procedures Referred By Annia gan Referred To Contact Ophthalmology Diagnoses Blurred vision Clint Miramontes MD [address] [place] [phone] [address] Referral ID Status Reason Start Date Expiration Date Visits Re quested Visits Authorized [id number] Closed 1 1 Encounter Details Date Type Department Care Team (Late st Contact Info) Description 05/15/2017 13:50 EDT Office Visit [facility] Ophthalmology [address] [address] Ekta Byrd MD [address] [place] [phone] Social History Tobacco Use Types Packs/Day Years [...] of this encounter Progress Notes * Ekta Byrd MD - 05/15/2017 1350 EDT Chief Complaint Patient presents with ??? Diplopia Having horizontal diplopia for the last 6 months. HPI The patient is a 67 y.o. female c/o horizontal, binocular diplopia that she began to notice 6 months ago. Notices it when watching TV, going to the movies, driving at times. Happens mostly at night and when fatigued. Has not changed, does not think it has gotten worse. Tried stick on prism with but she was unable to see through them. Discussed putting part time prism in specs with Dr. Matson, but she decided not to follow through with this. Referred here by PCP. Right Eye: Distorted Vision Left Eye: Distorted Vision Visual Aid: Glasses Current Rx Age > 2 years Location: Both eyes Pain: 0 - No pain Quality: Distorted Severity: Mild Duration: Months Timing: Fluctuates Lasts: Continuous Context: For the last 6 months has been having episodes of horizontal doubling, happens at night when watching TV and goes away when covering one eye. Modifying factors: Saw Dr. Matson several months ago, tried prism stickers on glasses but that did not work for her. Associated Signs & Symptoms: Attestation: ROS Constitutional: NL ENT/Mouth NL Cardiovascular: High Cholesterol Respiratory: NL Gastrointestinal: NL Genitourinary: NL Musculoskeletal: NL Integumentary: NL Neurologic: NL Psychiatric: NL Endocrine: NL Hematologic: NL Immunologic: Drug Allergy Material Checker: Exposures: None Other: Attestation: Base Eye Exam Visual Acuity (Snellen - Linear) Right Left Dist cc 20/25 -2 20/25 +2 Correction: Glasses Tonometry (Applanation, 14:23) Right Left Pressure 10 8 Pupils Pupils Dark APD Right PERRL 3.5 None Left PERRL 3.5 None Visual Turner Right Left Result Full Full Extraocular Movement Right Left Result Full Full Neuro/Psych Oriented x3: Yes Mood/Affect: Normal Dilation Both eyes: 1.0% Mydriacyl, 2.5% Phenylephrine @ 15:06 Strabismus Exam 10 prism diopters esotropia with glasses on [id number] test. Slit Lamp and Fundus Exam External Exam Right Left External Normal Normal Slit Lamp Exam Right Left Lids/Lashes Normal Normal Conjunctiva/Sclera White and quiet White and quiet Cornea Clear Clear Anterior Chamber Deep and quiet Deep and quiet Iris Round and reactive Round and reactive Lens 1-2+ Nuclear sclerosis 1-2+ Nuclear sclerosis Fundus Exam Right Left Vitreous Posterior vitreous detachment Posterior vitreous detachment Disc Tilted Tilted C/D Ratio 0.6 0.3 Macula Normal Normal Vessels Normal Normal Periphery Normal Normal Refraction Wearing Rx Sphere Cylinder Manvel Add Right -6.25 +1.00 117 +2.25 Left -7.00 +1.75 133 +2.25 Manifest Refraction (Auto) Sphere Cylinder Manvel Right -7.25 +0.50 100 Left -7.25 +2.00 135 DIAGNOSTIC TESTS IMPRESSION & PLAN ??? 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 Matson ??? Senile nuclear sclerosis, bilateral - Not visually significant - Observe ??? Posterior vitreous detachment, bilateral - retina ok with no holes/tears/retinal detachment - call for increase in flashes or floaters, decreased vision I have reviewed the patient's past medical, family, social and surgical history. I have also reviewed the patient's medications, allergies, and problem list. I performed my own HPI and have reviewed the tech's ROS as well. I completed this exam personally. Ekta Byrd MD I am scribing for Ekta Byrd MD, while she is personally performing the service. PAVITHRA Leone Patient Education Topic: Diplopia Method: Verbal Taught to: Patient Barriers: None Outcomes: independent and verbalized understanding Signature: Ekta Byrd MD documented in this encounter Plan of Treatment Upcoming Encounters Date Type Department Care Team (Late st Contact Info) Description 08/10/2024 16:00 EDT Appointment [facility] MRI [address] [place], [place] [id number] 08/16/2024 14:00 EDT EMILIA [facility] OBGYN Ultrasound [address] [place] [address] 08/29/2024 14:00 EDT Office Visit [facility] OBGYN [address] [place] [address] Ness Vilchis MD [address] [place] [address], [address] [place] [phone] 08/31/2024 16:00 EDT Office Visit [facility] Orthopedics & Sport Medicine [address], [address] [place], [place] [phone] Reema Peoples PA-C [address] [facility] [address] [place], [place] [phone] 09/01/2024 9:30 EDT Office Visit [facility] Rheumatology [address] [place] [phone] Lin Grider MD [address] [place] [address] [address] [place] [address] 11/08/2024 14:00 EST Office Visit [facility] Adult Hematology & Oncology [address] [place] [phone] Luz Maria Peter NP [address] [place] [address], [facility] [place] [address] [place] [address] 11/22/2024 10:15 EST Office Visit [facility] Family Medicine - [place] [address] [place] [address] Clint Miramontes MD [address] [place] [phone] documented as of this encounter Visit Diagnoses Diagnosis Diplopia- Primary Senile nuclear sclerosis, bilateral Posterior vitreous detachment, bilateral documented in this encounter Historical Medications * This list may reflect changes made after this encounter. Medication Sig Dispensed Refills Start Date End Date DIAZepam (VALIUM) 5 mg tablet Take 5 mg by mouth as needed for Anxiety (for flying). 09/19/2019 added in this encounter Eye Exam Visual Acuity (Snellen - Linear) Right eye Left eye Dist cc 20/25 -2 20/25 +2 Correction: Glasses Tonometry (Applanation, 14:23) Right eye Left eye Pressure 10 8 Pupils Pupils Dark APD Right eye PERRL 3.5 None Left eye PERRL 3.5 None Visual Turner Right eye Left eye Full Full Extraocular Movement Right eye Left eye Full Full Neuro/Psych Oriented x3: Yes Mood/Affect: Normal Dilation Both eyes: 1.0% Mydriacyl, 2 .5% Phenylephrine @ 15:06 External Exam Right eye Left eye External Normal Normal Slit Lamp Exam Right eye Left eye Lids/Lashes Normal Normal Conjunctiva/Sclera White and quiet White and faisal et Cornea Clear Clear Anterior Chamber Deep and quiet Deep and quiet Iris Round and reactive Round and luz marina ctive Lens 1-2+ Nuclear sclerosis 1-2+ Nucl ear sclerosis Vitreous Posterior vitreous detachment Po sterior vitreous detachment Fundus Exam Right eye Left eye Disc Tilted Tilted C/D Ratio 0.6 0.3 Macula Normal Normal Vessels Normal Normal Periphery Normal Normal Strabismus Exam Comments 10 prism diopters esotropia with glasses on lthff-ee-dxpck test. Wearing Rx Sphere Cylinder Manvel Add Right eye -6.25 +1.00 117 +2.25 Left eye -7.00 +1.75 133 +2.25 Manifest Refraction (Auto) Sphere Cylinder Manvel Right eye -7.25 +0.50 100 Left eye -7.25 +2.00 135 Care Teams Nursery Teacher Relationship Specialty Start Date End Date Edison Miramontes DO PCP - General 05/14/17 08/22/19 documented as of this encounter
--- OUTSIDE RECORDS SUMMARY | 2024-08-07 13:40 | XMS_ITS | Encounter Summary ---
Author Organization [facility] Address [address] [place] [address] Care Team Providers Care Fire Loss Prevention Engineer Name Role Phone Cooper Mojica MD Primary Care Provider [phone] Edison Miramontes DO Primary Care Provider [phone] Encounter Details Date Type Department Care Team (Late st Contact Info) Description 02/19/2016 Historical Results Only [facility] Radiology Results [address] [place], [place] [address] Cooper Mojica MD [address] [place] [address] Social History Tobacco Use Types Packs/Day [...] EDT Appointment [facility] MRI [address] [place], [place] [address] 08/16/2024 14:00 EDT EMILIA [facility] OBGYN Ultrasound [address] [place], [place] [phone] 08/29/2024 14:00 EDT Office Visit [facility] OBGYN [address] [place] [address] Ness Vilchis MD [address] [facility], [address] [place] [phone] 08/31/2024 16:00 EDT Office Visit [facility] Orthopedics & Sport Medicine [address], [address] [place] [address] Reema Peoples PA-C [address] [facility] [address] [place], [place] [phone] 09/01/2024 9:30 EDT Office Visit [facility] Rheumatology [address] [place] [phone] Lin Grider MD [address] [place] [address] [address] [place] [address] 11/08/2024 14:00 EST Office Visit [facility] Adult Hematology & Oncology [address] [place] [address] Luz Maria Peter NP [address] [place] [address] [address] [place] [address] 11/22/2024 10:15 EST Office Visit [facility] Family Medicine - [employer] [address] [place] [address] Clint Miramontes MD [address] [place] [address] documented as of this encounter Procedures Procedure Name Priority Date/Time Associated Diagnosis Comments MA BREAST SCREENING ELO BILATERAL 02/19/2016 15:36 EDT DXA BONE DENSITY 02/19/2016 15:2 3 EDT documented in this encounter Results * MA BREAST SCREENING ELO BILATERAL (02/19/2016 15:36 EDT) Anatomical Region Laterality Modality Breast Bilateral Other 02/19/2016 15:3 6 EDT Narrative 02/21/2016 9:16 EDT ? EXAM: MAMMOGRAM/MAMMO BILATERAL SCREEN W ??EX. D/ (1536) ? CLINICAL INFORMATION: ? Z12.31, ENCOUNTER FOR SCREENING MAMMOGRAM FOR ? MALIGNANT NEOPLASM OF BREAST ? TECHNIQUE: ??Full field digital whole breast 2D (C-view) and 3D CC and ? MLO views of both breasts were obtained. CAD technology was utilized. ? INDICATION: ??Screening ? FINDINGS: ??The fibroglandular patterns of the breasts are normal. ? There has been no change when compared to previous mammograms and ? there is no mammographic evidence of cancer. The breasts are of ? scattered density. ? FINAL ASSESSMENT: ??BILATERAL BREAST - Category 1 - Negative. Routine ?mammographic follow-up is recommended. ? These results will be communicated to your patient via a lay letter ? from Radiology. ??If any additional imaging is needed we will contact ? your patient directly. ? BBL:dnl ?Reported By: Trent Burgess MD ? CC: ? Transcribed Date/Time: 02/21/2016 (915) ? Mushroom Growing Supervisor: LETICIA ? Printed Date/Time: 04/14/2019 (0408) ? PAGE 1 ? Signed Report ? Procedure Note Trent Burgess MD - 09/07/2019 EXAM: MAMMOGRAM/MAMMO BILATERAL SCREEN W EX. D/ (1536) CLINICAL INFORMATION: Z12.31, ENCOUNTER FOR SCREENING MAMMOGRAM FOR MALIGNANT NEOPLASM OF BREAST TECHNIQUE: Full field digital whole breast 2D (C-view) and 3D CCand MLO views of both breasts were obtained. CAD technology wasutilized. INDICATION: Screening FINDINGS: The fibroglandular patterns of the breasts are normal. There has been no change when compared to previous mammograms and there is no mammographic evidence of cancer. The breasts are of scattered density. FINAL ASSESSMENT: BILATERAL BREAST - Category 1 - Negative.Routine mammographic follow-up is recommended. These results will be communicated to your patient via a lay letter from Radiology. If any additional imaging is needed we willcontact your patient directly. BBL:dnl Reported By: Trent Burgess MD CC: Transcribed Date/Time: 02/21/2016 (915) Mushroom Growing Supervisor: LETICIA Printed Date/Time: 04/14/2019 (7020) PAGE 1 Signed Report Cooper Mojica MD IMG MAMMOGRAPHY PR[facility] * XR DEXA BONE DENSITY (02/19/2016 15:23 EDT) Anatomical Region Laterality Modality Wrist, Hip, L-spine Other 02/19/2016 15:2 3 EDT Narrative 02/20/2016 10:07 EDT ? EXAM: RADIOLOGY/DXA SCAN/BONE DENSITY ? EX. D/ (1523) ? CLINICAL INFORMATION: ? M81.0 OSTEOPOROSIS ? Indication: osteopenia; cancer; ? Accession number: [id number] ? Clinical Information Provided by Patient: ? Has used the following medications: Vitamin D ? Has the following medical conditions: Cancer ? Patient maximum height was 58.75 ? Menopause Age 50 ? Drinks caffeinated beverages ? Onset of menses at age 12 ? Number of children 2 ? Bone Density: Exam date 02/19/2016 ? Region ?BMD ? . ? (g/cm2) ?? T-score ?? Z-score ?? Classification ? AP Spine(L1-L4) ?0.784 ? -2.4 ?-0.5 ? Osteopenia ? Femoral Neck(Left) ? 0.510 ? -3.1 ?-1.4 ? Osteoporosis ? Total Hip(Left) ?0.686 ? -2.1 ?-0.8 ? Osteopenia ? World Health Organization criteria for BMD impression classify ? patients as Normal (T-score at or above -1.0), Osteopenia (T-score ? between -1.0 and -2.5), or Osteoporosis (T-score at or below -2.5). ? 10-year Fracture Risk: ? FRAX not reported because: ? Some T-score for Spine Total or Hip Total or Femoral Neck at or ? below -2.5 ? Previous Exams: ? REGION ?EXAM ?AGE ?? BMD ?T-score ??BMD ?BMD ? . ? DATE ? (G/CM2) ? Change ? Change ? . ?vs Baseline vs Prev ? AP Spine (L1-L4) 02/19/2016 ?? 65 ?0.784 ?? -2.4 ? -0.003 ?- 0.003 ? . ? (-0.4%) ?? (-0.4%) ? . ?07/08/2011 ?? 61 ?0.787 ?? -2.4 ? Total Hip(Left) ??02/19/2016 ?? 65 ?0.686 ?? -2.1 ? -0.036 ?- 0.036 ? . ? (-5.0%)* ??(-5.0%)* ? . ?07/08/2011 ?? 61 ?0.723 ?? -1.8 ? *Denotes significance at 95% confidence level, LSC for AP Spine = ? 0.022 g/cm2, ??LSC for Total Hip = 0.027 g/cm2 ? Impression: The patient has osteoporosis, based on the Left Femoral ? Neck T-score. The BMD for the Total Hip(Left) decreased, changing by ? -5.0% since the last DXA exam. ? Discussion: INCREASED RISK OF FRACTURE. BONE DENSITY IS UNDESIRABLY ? PAGE 1 ? Signed Report ? (CONTINUED) ? LOW AT ONE OR MORE SKELETAL SITES, CONSISTENT WITH POSTMENOPAUSAL ? OSTEOPOROSIS. ? This patient's lowest T-score meets the World Health Organization's ? (WHO) criteria for osteoporosis at one or more sites (T-score -2.5 or ? below). In untreated patients, the risk of osteoporotic fracture ? increases approximately two-fold for each 1.0 SD decrease in T-score. ? Low bone density is not the only risk factor for fracture; also ? consider factors such as patient's age, frailty or poor health, risk ? of falling, risk of injury, previous osteoporotic fracture, family ? history of osteoporosis, cigarette smoking, low body weight, etc. Not ? everyone with low bone mineral density has osteoporosis; osteomalacia ? and other metabolic bone disorders should also be considered. Patients ? who have osteoporosis should be evaluated for specific diseases and ? conditions (secondary causes) that may cause or contribute to bone ? loss. ? The [place] Association of Clinical Endocrinologists (AACE) and ? National Osteoporosis Foundation (NOF) recommend pharmacologic ? intervention for all postmenopausal women whose T-score is in this ? range. The patient should follow a healthful lifestyle (good nutrition ? with adequate calcium and vitamin D, and appropriate weight-bearing ? exercise). ? Follow-Up: Consider a repeat BMD and Vertebral Fracture Assessment ? (VFA) exam in 2 years or sooner if medically necessary, to reassess ? this patient's status. ? JSP:chay ?Reported By: Reji Carroll MD ? CC: ? Transcribed Date/Time: 02/20/2016 (1007) ? Mushroom Growing Supervisor: JHONNY ? Printed Date/Time: 04/14/2019 (8072) ? PAGE 2 ? Signed Report ? Procedure Note Reji Carroll MD - 09/07/2019 EXAM: RADIOLOGY/DXA SCAN/BONE DENSITY EX. D/ (1523) CLINICAL INFORMATION: M81.0 OSTEOPOROSIS Indication: osteopenia; cancer; Accession number: [id number] Clinical Information Provided by Patient: Has used the following medications: Vitamin D Has the following medical conditions: Cancer Patient maximum height was 58.75 Menopause Age 50 Drinks caffeinated beverages Onset of menses at age 12 Number of children 2 Bone Density: Exam date 02/19/2016 Region BMD . (g/cm2) T-score Z-scoreClassification AP Spine(L1-L4) 0.784 -2.4 -0.5Osteopenia Femoral Neck(Left) 0.510 -3.1 -1.4Osteoporosis Total Hip(Left) 0.686 -2.1 -0.8Osteopenia World Health Organization criteria for BMD impression classify patients as Normal (T-score at or above -1.0), Osteopenia (T-score between -1.0 and -2.5), or Osteoporosis (T-score at or below -2.5). 10-year Fracture Risk: FRAX not reported because: Some T-score for Spine Total or Hip Total or Femoral Neck at or below -2.5 Previous Exams: REGION EXAM AGE BMD T-score BMD BMD . DATE (G/CM2) ChangeChange . vs Baseline vsPrev AP Spine (L1-L4) 02/19/2016 65 0.784 -2.4 -0.003-0.003 . (-0.4%)(-0.4%) . 07/08/2011 61 0.787 -2.4 Total Hip(Left) 02/19/2016 65 0.686 -2.1 -0.036-0.036 . (-5.0%)*(-5.0%)* . 07/08/2011 61 0.723 -1.8 *Denotes significance at 95% confidence level, LSC for AP Spine = 0.022 g/cm2, LSC for Total Hip = 0.027 g/cm2 Impression: The patient has osteoporosis, based on the Left Femoral Neck T-score. The BMD for the Total Hip(Left) decreased, changingby -5.0% since the last DXA exam. Discussion: INCREASED RISK OF FRACTURE. BONE DENSITY IS UNDESIRABLY PAGE 1 Signed Report (CONTINUED) LOW AT ONE OR MORE SKELETAL SITES, CONSISTENT WITH POSTMENOPAUSAL OSTEOPOROSIS. This patient's lowest T-score meets the World Health Organization's (WHO) criteria for osteoporosis at one or more sites (T-score -2.5or below). In untreated patients, the risk of osteoporotic fracture increases approximately two-fold for each 1.0 SD decrease inT-score. Low bone density is not the only risk factor for fracture; also consider factors such as patient's age, frailty or poor health,risk of falling, risk of injury, previous osteoporotic fracture, family history of osteoporosis, cigarette smoking, low body weight, etc.Not everyone with low bone mineral density has osteoporosis;osteomalacia and other metabolic bone disorders should also be considered.Patients who have osteoporosis should be evaluated for specific diseases and conditions (secondary causes) that may cause or contribute to bone loss. The [place] Association of Clinical Endocrinologists (AACE) and National Osteoporosis Foundation (NOF) recommend pharmacologic intervention for all postmenopausal women whose T-score is in this range. The patient should follow a healthful lifestyle (goodnutrition with adequate calcium and vitamin D, and appropriate weight-bearing exercise). Follow-Up: Consider a repeat BMD and Vertebral Fracture Assessment (VFA) exam in 2 years or sooner if medically necessary, to reassess this patient's status. LUKE:chay Reported By: Reji Carroll MD CC: Transcribed Date/Time: 02/20/2016 (1007) Mushroom Growing Supervisor: JHONNY Printed Date/Time: 04/14/2019 (3142) PAGE 2 Signed Report Cooper Mojica MD IMG DEXA ORDERABLES documented in this encounter Visit Diagnoses Not on filedocumented in this encounter Care Teams Fire Loss Prevention Engineer Relationship Specialty Start Date End Date Cooper Mojica MD [address] [place] [address] PCP - General 03/27/10 05/13/17 Edison Miramontes DO [address] [place] [address] PCP - General 05/14/17 08/22/19 documented as of this encounter
--- OUTSIDE RECORDS SUMMARY | 2024-08-07 13:40 | XMS_ITS | Encounter Summary ---
Author Organization [facility] Address [address] [place] [address] Care Team Providers Care Enterprise Sales Executive Name Role Phone Cooper Mojica MD Primary Care Provider [phone] Edison Miramontes DO Primary Care Provider [phone] Encounter Details Date Type Department Care Team (Late st Contact Info) Description 03/17/2017 Historical Results Only [facility] Radiology Results [address] [place], [place] [address] Cooper Mojica MD [address] [place] [address] Social History Tobacco Use Types Packs/Day [...] EDT Appointment [facility] MRI [address] [place], [place] [address] 08/16/2024 14:00 EDT EMILIA [facility] OBGYN Ultrasound [address] [place], [place] [address] 08/29/2024 14:00 EDT Office Visit [facility] OBGYN [address] [place] [address] Ness Vilchis MD [address] [facility], [address] [place] [phone] 08/31/2024 16:00 EDT Office Visit [facility] Orthopedics & Sport Medicine [address], [address] [place], [place] [phone] Reema Peoples PA-C [address] [facility] [address] [place], [place] [phone] 09/01/2024 9:30 EDT Office Visit [facility] Rheumatology [address] [place] [address] [phone] Lin Grider MD [address] [place] [address] [address] [place] [address] 11/08/2024 14:00 EST Office Visit [facility] Adult Hematology & Oncology [address] [place] [phone] Luz Maria Peter NP [address] [place] [address] [address] [place] [address] 11/22/2024 10:15 EST Office Visit [facility] Family Medicine - [place] [address] [place] [address] Clint Miramontes MD [address] [place] [phone] documented as of this encounter Visit Diagnoses Not on filedocumented in this encounter Care Teams Enterprise Sales Executive Relationship Specialty Start Date End Date Cooper Mojica MD [address] [place] [address] [place] [address] PCP - General 03/27/10 05/13/17 Edison Miramontes DO [address] [place] [address] PCP - General 05/14/17 08/22/19 documented as of this encounter
--- OUTSIDE RECORDS SUMMARY | 2024-08-07 13:40 | XMS_ITS | Encounter Summary ---
Author Organization [facility] Address [address] [place] [address] Care Team Providers Care Creeler Name Role Phone Cooper Mojica MD Primary Care Provider [phone] Encounter Details Date Type Department Care Team (Latest Contact Info) Description 11/11/2016 6:04 EST - 11/11/2016 10:11 EST Hospital Encounter [facility] Perioperative Services - [address] [address] Yumiko Faust MD [address] [place] [address] [phone] Discharge Disposition: Home or Self Care Social [...] Sign Reading Time Taken Comments Blood Pressure 143/72 11/11/2016 0945 EST Pulse - - Temperature 36.6 ??C (97.9 ??F) 11/11/2016 0945 EST Respiratory Rate 21 11/11/2016 0945 EST Oxygen Saturation 99% 11/11/2016 0945 EST Inhaled Oxygen Concentration - - Weight 49 kg (108 lb) 11/05/2016 0938 EST Height 149.9 cm (4' 11) 11/05/2016 0938 EST Body Mass Index 21.81 11/05/2016 0938 EST documented in this encounter Discharge Diagnoses Diagnosis N81.10 Cystocele, unspecified-N81.10[ICD-10-CM] Z87.891 Personal history of nicotine dependence-Z87.891[ICD-10-CM] documented in this encounter Discharge Instructions * Discharge Instructions* Sarita Varner RN - 11/11/2016 8:42 EST Nursing Discharge Instructions For your safety: ?? We recommend you are in the care of another adult for 24 hours after anesthesia. ?? You should not drive or make any important personal decisions for 24 hours. ?? You are at a higher risk for a fall and nausea/vomiting after anesthesia. We recommend you rest at home with mild activity for the remainder of the day. ?? If you experience any of the following, contact your surgeon or primary care provider: o Difficulty breathing o Bleeding that saturates your dressing with increasing amounts of blood o Difficulty urinating or Inability to urinate over the next 6 hours. Diet: ?? You should increase your fluid intake as tolerable for the next 24 hours. ?? If you are unable to keep liquids down due to vomiting, you should contact your surgeon or primary care provider. Activity: ?? Unless specific surgical activities were given, you should alternate periods of rest with periods of mild activity (i.e. walking around the house) and increase your activity as tolerated to normaldaily activities. ?? To help prevent post-operative respiratory complications, take several deep breaths and a few vigorous coughs each hour while awake. Reducing Infection: ?? You and your household members should wash hands regularly, particularly after using the toilet and before handling food. ?? To reduce your risk of a wound infection follow the dressing care instructions from your surgeon. ?? If you have any of the following symptoms, contact your surgeon or primary care provider o Fever greater than 101 degrees o Flu like symptoms (i.e. headache, nausea/vomiting, chills) o Swelling, redness, or drainage (yellow/green in color) around the surgical site o Persistent pain or pain that was controlled with medication but now has worsened. Considerations of Pain Medications: ?? In order to prevent constipation, increase your daily fluid intake and your fiber intake. You may also take daily [id number] stool softener such as Colace. ?? Follow your prescription as written on the bottle. Contact your surgeon if you are having difficulty taking your pain medication as prescribed due to nausea/vomiting, excessive drowsiness/stupor, or other side effects. Contact your physician if your pain medication does not seem to help with your pain. * Medications* Sarita Varner RN - 11/11/2016 9:39 EST 0930 500 mg of Tylenol given. Ok to take again in 6 hours. Do not exceed 4000 mg in 24 hours * Discharge Instr - Activity* Yumiko Faust MD - 11/11/2016 8:57 EST As discussed. Nothing pv until postop check at 6 weeks * Discharge Instr - Diet* Yumiko Faust MD - 11/11/2016 8:57 EST Regular * Discharge Instr - Other Orders* Yumiko Faust MD - 11/11/2016 8:57 EST Patient must void before leaving PACU documented in this encounter Medications at Time [...] 11/11/2016 09/19/2019 documented as of this encounter Ordered Prescriptions Prescription Sig Dispensed Refills Start Date End Da te oxyCODONE (ROXICODONE) 5 mg immediate release tablet Take 1 Tab by mouth every 4 hours as needed for Pain. Daily Max: 30 mg 8 Tab 11/11/2016 09/19/2019 documented in this encounter Discharge Disposition Disposition Code Departure Means Destination Home or Self Care documented in this encounter Progress Notes * Tyesha Hansen, RN - 11/05/2016 0959 EST Mel Ramirez has been instructed as follows regarding medication administration for the day ofthe scheduled procedure. Date of Surgery: 11/11/16 Instructions for Taking Medications Day of Surgery Medication Sig Last Dose Hold DOS Take DOS acetaminophen (TYLENOL) 500 mg tablet Take 2 Tabs by mouth every 6 hours as needed for Pain. Yes ALBUTEROL INHL Inhale as directed. Yes aspirin 325 mg tablet Take 1 Tab by mouth daily. Yes office called to check if pt ok to stay on this. Homepage states per anesthesia protocol. i called pt to get name doctor who ordered asa for approval to decrease to [id number]. She states juan dia had given her the option when she prescribed asa of full 325mg or 81mg. she will go down to baby asa 81mg for surgery. cholecalciferol, Vitamin D3, (VITAMIN D) 1,000 unit tablet Take 1,000 Units by mouth daily. 11/05/16 fluticasone (FLOVENT) 110 mcg/actuation inhaler Inhale as directed every 12 hours. Yes IBANDRONATE SODIUM (BONIVA ORAL) Take by mouth. Once monthly Yes LORAZEPAM ORAL Take 1 mg by mouth at bedtime. Yes lovastatin (MEVACOR) 20 mg tablet Take 80 mg by mouth at bedtime. Yes MULTIVITAMINS (MULTIVITAMIN ORAL) Take 1 Tab by mouth daily. 11/05/16 documented in this encounter H&P Notes * Yumiko Faust MD - 11/11/2016 0743 EST The preoperative history and physical which was performed within 30 days of this procedure has been reviewed and the clinically appropriate elements of the physical examination have been repeated. There are no changes to the documented history and physical or if so such changes are documented below Yumiko Faust MD 11/11/2016 7:44 documented in this encounter OR Notes * OR Surgeon - Yumiko Faust MD - 11/11/2016 0000 EST OPERATIVE REPORT SERVICE DATE: 11/11/2016 PREOPERATIVE DIAGNOSIS: Cystocele. POSTOPERATIVE DIAGNOSIS: Cystocele. PROCEDURE: Anterior repair. SURGEON: Yumiko Faust MD PSYCHIATRIC MENTAL HEALTH NURSE: None. ANESTHESIA: LMA. NARRATIVE: The patient was taken to the operating room where general anesthesia via LMA was administered. The patient was placed in stirrups and prepped and draped in the usual fashion for vaginal surgery. The bladder was catheterized of clear urine. The anterior vaginal wall was grasped with Allisclamps. A dilute solution of vasopressin was infiltrated. A vertical incision was made. The bladderwas completely mobilized off the anterior vaginal wall. Plication sutures of 2-0 Vicryl were placedin the endopelvic fascia beneath the cystocele. The excess vaginal mucosa was trimmed and the incision was closed with a running locking suture of 2-0 Vicryl. All counts were correct at the completion of the procedure and the patient was taken to the recovery room in good condition. Unless otherwise noted, there were no complications, no blood loss, no cultures obtained, no specimens removed, and no drains retained. Yumiko Faust MD 08 44 AM / Yumiko Faust MD en Confirmation: [id number] Dictation ID: [id number] documented in this encounter Miscellaneous Notes * Anesthesia Post-Eval - Buck Sanchez - 11/11/2016 1011 EST Post Anesthesia Evaluation Note Date of Service: 11/11/2016 eMl Ramirez, a 66 y.o. year old female has received General Anesthesia today. She has been evaluated, assessed and discharged from anesthesia care with stable cardiorespiratory function and alert mental status. The last set of recorded vital signs and pain rating were reviewed: Temp: 36.6 ??C (97.9 ??F), Heart Rate: 73 BPM, BP: (!) 143/72, Resp: 21, SpO2: 99 %,Numeric Pain Level (Scale 1-10): 0 Mel Ramirez participated in this evaluation unless otherwise noted. Her pain, nausea and vomiting have been managed and her body temperature and fluid balance have been restored. Additional monitoring and assessment needs have been addressed. If present, any postoperative events are documented below. Buck Sanchez MD 11/11/2016 14:19 * Brief Op Note - Yumiko Faust MD - 11/11/2016 0855 EST Preop dx: cystocele Postop dx: same Procedure: anterior repair Surgeon: Govind Anes: LMA Findings: grade 2-3 cystocele Specimens: none Foreign bodies: none Comp: none Dispo: PACU documented in this encounter Plan of Treatment Upcoming Encounters Date Type Department Care Team (Late st Contact Info) Description 08/10/2024 16:00 EDT Appointment [facility] MRI [address] [place], [place] [phone] 08/16/2024 14:00 EDT EMILIA [facility] OBGYN Ultrasound [address] [place] [address] 08/29/2024 14:00 EDT Office Visit [facility] OBGYN [address] [place] [phone] Ness Vilchis MD [address] [place] [address], [address] [place] [address] 08/31/2024 16:00 EDT Office Visit [facility] Orthopedics & Sport Medicine [address], [address] [place] [address] Reema Peoples PA-C [address] [facility] [address] [place], [place] [phone] 09/01/2024 9:30 EDT Office Visit [facility] Rheumatology [address] [place] [phone] Lin Grider MD [address] [place] [address] [address] [place] [address] 11/08/2024 14:00 EST Office Visit [facility] Adult Hematology & Oncology [address] [place] [phone] Luz Maria Peter NP [address] [place] [address] [address] [place] [address] 11/22/2024 10:15 EST Office Visit [facility] Family Medicine - [place] [address] [place], [place] [phone] Clint Miramontes MD [address] [place] [phone] documented as of this encounter Procedures Procedure Name Priority Date/Time Associated Diagnosis Comments ECG REPORT - SCANNED 11/14/2016 14:55 EST documented in this encounter Results * ECG REPORT - SCANNED (11/14/2016 14:55 EST) 11/14/2016 14:5 5 EST Scan 2 Civil Rights Investigator PROCEDURE/MINOR KULDEEP GICAL ORDERABLES documented in this encounter Visit Diagnoses Not on filedocumented in this encounter Administered Medications Inactive Administered Medications - up to 3 most recent administrations Medication Order MAR Action Action Date Dose Rate Site acetaminophen (TYLENOL) tablet 325 mg 325 mg, oral, PRN, 2 doses, Starting on Thu11/11/16 at 0838, Until Thu11/11/16 at 1224, Pain, Routine, Recovery (only) Given 11/11/2016 9:38 EST 325 mg atropine 0.1 mg/mL syringe 0.5 mg 0.5 mg, intravenous, PRN, Starting on Thu11/11/16 at 0838, Until Thu11/11/16 at 1224, Symptomatic HR < 50, Routine, Recovery (only) ceFAZolin (ANCEF) syringe 1 g 1 g, intravenous, Administer over 10 Minutes, PRE-OP ONCE, 1 dose, On Thu11/11/16 at 0800, Routine Given 11/11/2016 8:05 EST 1 g diphenhydrAMINE (BENADRYL) injection 6.25 mg 6.25 mg, intravenous, PRN, 2 doses, Starting on Thu11/11/16 at 0838, Until Thu11/11/16 at 1224, nausea, Routine, Recovery (only) fentaNYL citrate (PF) 50 mcg/mL injection 25-100 mcg 25-100 mcg, intravenous, EVERY 5 MIN PRN, Starting on Thu11/11/16 at 0838, Until Thu11/11/16 at 1224, Pain, Routine, Recovery (only) lactated ringers (LR) infusion at 75 mL/hr, intravenous, CONTINUOUS, Starting on Thu11/11/16 at 0700, Until Thu11/11/16 at 1224, Routine, Pre Op Day of Surgery New Bag 11/11/2016 7:12 EST 25 mL/hr naloxone (NARCAN) injection 0.2 mg 0.2 mg, intravenous, PRN, Starting on Thu11/11/16 at 0838, Until Thu11/11/16 at 1224, Opioid Reversal, Routine, Recovery (only) ondansetron (PF) (ZOFRAN) injection 2 mg 2 mg, intravenous, PRN, 1 dose, Starting on Thu11/11/16 at 0838, Until Thu11/11/16 at 1224, Nausea, Vomiting, Routine, Recovery (only) oxyCODONE (ROXICODONE) immediate release tablet 5 mg 5 mg, oral, PRN, 2 doses, Starting on Thu11/11/16 at 0838, Until Thu11/11/16 at 1224, Pain, Routine, Recovery (only) documented in this encounter Discontinued Medications Medication Sig Discontinue Reason Start Date End Da te BUTALBITAL/ASPIRIN/CAFF EINE (BUTALBITAL COMPOUND ORAL) Take 1-2 Tabs by mouth as needed. Patient Stopped Taking 11/05/2016 CALCIUM CARBONATE/VITAMIN D3 (CALCIUM 600 + D,3, ORAL) Take 2 Tabs by mouth daily. Patient Stopped Taking 11/05/2016 documented as of this encounter Historical Medications * This list may reflect changes made after this encounter. Medication Sig Dispensed Refills Start Date End Date IBANDRONATE SODIUM (BONIVA ORAL) Take by mouth. Once monthly 09/19/2019 fluticasone (FLOVENT) 110 mcg/actuation inhaler Inhale as directed every 12 hours. Reported on 11/11/2016 09/19/2019 ALBUTEROL INHL Inhale as directed. Reported on 11/11/2016 09/19/2019 added in this encounter Active and Recently Administered Medications Times are shown in EST. Scheduled Medication Order 11/09/2016 11/10/2016 11/11/2016 ceFAZolin (ANCEF) syringe 1 g (COMPLETED) 1 g, intravenous, Administer over 10 Minutes, PRE-OP ONCE, 1 dose, On Thu11/11/16 at 0800, Routine 0805 (Given - Provid er: Josh Torrez CRNA) Continuous Medication Order 11/09/2016 11/10/2016 11/11/2016 lactated ringers (LR) infusion at 75 mL/hr, intravenous, CONTINUOUS, Starting on Thu11/11/16 at 0700, Until Thu11/11/16 at 1224, Routine, Pre Op Day of Surgery 0712 (New Bag - Prov ider: Cecy Matthew)0816 (Canceled Entry - Provider: Batch Job User Admin - Comment: Automatically canceled at discontinue of medication order) PRN Medication Order 11/09/2016 11/10/2016 11/11/2016 acetaminophen (TYLENOL) tablet 325 mg 325 mg, oral, PRN, 2 doses, Starting on Thu11/11/16 at 0838, Until Thu11/11/16 at 1224, Pain, Routine, Recovery (only) 0938 (Given - Provid er: Sarita Varner RN) atropine 0.1 mg/mL syringe 0.5 mg 0.5 mg, intravenous, PRN, Starting on Thu11/11/16 at 0838, Until Thu11/11/16 at 1224, Symptomatic HR < 50, Routine, Recovery (only) diphenhydrAMINE (BENADRYL) injection 6.25 mg 6.25 mg, intravenous, PRN, 2 doses, Starting on Thu11/11/16 at 0838, Until Thu11/11/16 at 1224, nausea, Routine, Recovery (only) fentaNYL citrate (PF) 50 mcg/mL injection 25-100 mcg 25-100 mcg, intravenous, EVERY 5 MIN PRN, Starting on Thu11/11/16 at 0838, Until Thu11/11/16 at 1224, Pain, Routine, Recovery (only) naloxone (NARCAN) injection 0.2 mg 0.2 mg, intravenous, PRN, Starting on Thu11/11/16 at 0838, Until Thu11/11/16 at 1224, Opioid Reversal, Routine, Recovery (only) ondansetron (PF) (ZOFRAN) injection 2 mg 2 mg, intravenous, PRN, 1 dose, Starting on Thu11/11/16 at 0838, Until Thu11/11/16 at 1224, Nausea, Vomiting, Routine, Recovery (only) oxyCODONE (ROXICODONE) immediate release tablet 5 mg 5 mg, oral, PRN, 2 doses, Starting on Thu11/11/16 at 0838, Until Thu11/11/16 at 1224, Pain, Routine, Recovery (only) documented in this encounter Orders Medications Ordered That Allan ht Not Have Been Administered Count Last Ordered Date First Ordered Date atropine 0.1 mg/mL syringe 0.5 mg 1 017 diphenhydrAMINE (BENADRYL) i njection 6.25 mg 1 11/11/2016 fentaNYL citrate (PF) 50 mcg /mL injection 25-100 mcg 1 11/11/2016 naloxone (NARCAN) injection 0.2 mg 1 2016 ondansetron (PF) (ZOFRAN) injection 2 mg 1 11/11/2016 oxyCODONE (ROXICODONE) immed iate release tablet 5 mg 1 11/11/2016 Nursing Count Last Ordered Date First Orde red Date INSERT PERIPHERAL IV 1 11/11/2016 Transfer Count Last Ordered Date First Orde red Date NOTIFY PPS PACU PATIENT DISCHARGE 017 Discharge Count Last Ordered Date First Orde red Date DISCHARGE PATIENT 1 11/11/2016 documented in this encounter Care Teams Creeler Relationship Specialty Start Date End Date Cooper Mojica MD [address] [place] [address] PCP - General 03/27/10 05/13/17 documented as of this encounter
--- OUTSIDE RECORDS SUMMARY | 2024-08-07 13:40 | XMS_ITS | Encounter Summary ---
Author Organization [facility] Address [address] [place] [address] Care Team Providers Care Professor Of Floriculture Name Role Phone Edison Miramontes DO Primary Care Provider [phone] Encounter Details Date Type Department Care Team (Latest Contact Info) Description 03/30/2018 12:32 EDT - 03/30/2018 23:59 EDT Hospital Encounter [address] [address] Unknown, Provider, Discharge Disposition: Home or Self [...] Contact Info) Description 08/10/2024 16:00 EDT Appointment [facility] MRI [address] [place] [address] 08/16/2024 14:00 EDT EMILIA [facility] OBGYN Ultrasound [address] [place] [address] 08/29/2024 14:00 EDT Office Visit [facility] OBGYN [address] [place] [address] Ness Vilchis MD [address] [facility], [address] [place] [address] 08/31/2024 16:00 EDT Office Visit [facility] Orthopedics & Sport Medicine [address], [address] [place] [address] Reema Peoples PA-C [address] [facility] [address] [place], [place] [address] 09/01/2024 9:30 EDT Office Visit [facility] Rheumatology [address] [facility], [place] [phone] Lin Grider MD [address] [facility] [address] [place] [address] 11/08/2024 14:00 EST Office Visit [facility] Adult Hematology & Oncology [address] [place] [address], [place] [phone] Luz Maria Peter NP [address] [facility] [address] [place] [address] 11/22/2024 10:15 EST Office Visit [facility] Family Medicine - [place] [address] [place] [address] Clint Miramontes MD [address] [place] [phone] documented as of this encounter Visit Diagnoses Not on filedocumented in this encounter Care Teams Professor Of Floriculture Relationship Specialty Start Date End Date Edison Miramontes DO PCP - General 05/14/17 08/22/19 documented as of this encounter
--- OUTSIDE RECORDS SUMMARY | 2024-08-07 13:40 | XMS_ITS | Encounter Summary ---
Author Organization [facility] Address [address] [place] [address] Care Team Providers Care Salesperson Handbags Name Role Phone Edison Miramontes DO Primary Care Provider [phone] Encounter Details Date Type Department Care Team (Late st Contact Info) Description 09/22/2018 Historical Results Only [facility] Radiology Results [address] [place] [address] Clint Miramontes MD [address] [place] [phone] Social History Tobacco Use Types Packs/Day [...] Info) Description 08/10/2024 16:00 EDT Appointment [facility] MRI [address] [place], [place] [address] 08/16/2024 14:00 EDT EMILIA [facility] OBGYN Ultrasound [address] [place] [address] 08/29/2024 14:00 EDT Office Visit [facility] OBGYN [address] [place] [phone] Ness Vilchis MD [address] [place] [address], [address] [place] [address] 08/31/2024 16:00 EDT Office Visit [facility] Orthopedics & Sport Medicine [address], [address] [place], [place] [phone] Reema Peoples PA-C [address] [facility] [address] [place], [place] [phone] 09/01/2024 9:30 EDT Office Visit [facility] Rheumatology [address] [place] [phone] Lin Grider MD [address] [place] [address] [address] [place] [address] 11/08/2024 14:00 EST Office Visit [facility] Adult Hematology & Oncology [address] [place] [address], [place] [phone] Luz Maria Peter NP [address] [place] [address], [facility] [address] [place] [address] 11/22/2024 10:15 EST Office Visit [facility] Family Medicine - [place] [address] [place] [phone] Clint Miramontes MD [address] [place] [phone] documented as of this encounter Procedures Procedure Name Priority Date/Time Associated Diagnosis Comments XR CERVICAL SPINE 4-5 VIEWS 09/22/2018 16:37 EST documented in this encounter Results * XR CERVICAL SPINE 4-5 VIEWS (09/22/2018 16:37 EST) Anatomical Region Laterality Modality Left Other 09/22/2018 16:3 7 EST Narrative 09/22/2018 16:37 EST ? EXAM: RADIOLOGY/CERVICAL SPINE 4 OR 5 VIE EX. D/ (1609) ? CLINICAL INFORMATION: ? M54.2 NECK PAIN ON RIGHT SIDE ? EXAM: ?XR Cervical Spine, 4 or 5 Views ? EXAM DATE/TIME: ?09/22/2018 4:09 PM ? CLINICAL HISTORY: ?68 years old, female; Pain; Cervicalgia; Additional info: M54.2 ? neck pain on right side ? TECHNIQUE: ?XR of the cervical spine, 4 or 5 views. ? COMPARISON: ?CT ([id number], RTP HEAD/NECK 2MM LGE) 05/13/2017 9:08 AM ? FINDINGS: ? Moderate to severe loss of disc space at C4-C5 and C5-C6. Mild ? loss of disc space at C6-C7. ? Minimal degenerative retrolisthesis of C3 on C4 of about 1-2 ? mm. ? Bulky anterior spurs at C4-C5 and C5-C6. ? Minimal encroachment upon bony neural foramina at C4-C5 C5-C6 ? and C6-C7 by uncovertebral joint osteophytes formations. ? Prevertebral soft tissues and atlantoaxial relationship normal. ? Loss of lordosis may reflect spasm or guarding. ? IMPRESSION: ? Degenerative changes as above. ? REPORT SIGNED IN OTHER VENDOR SYSTEM 09/22/2018 ?Reported By: Buck Davies MD ? CC: ? Transcribed Date/Time: 09/22/2018 (1637) ? Nursery Nurse: ? Printed Date/Time: 04/24/2019 (1448) ? PAGE 1 ? Signed Report ? Procedure Note Buck Davies - 09/08/2019 EXAM: RADIOLOGY/CERVICAL SPINE 4 OR 5 VIE EX. D/ (1609) CLINICAL INFORMATION: M54.2 NECK PAIN ON RIGHT SIDE EXAM: XR Cervical Spine, 4 or 5 Views EXAM DATE/TIME: 09/22/2018 4:09 PM CLINICAL HISTORY: 68 years old, female; Pain; Cervicalgia; Additional info: M54.2 neck pain on right side TECHNIQUE: XR of the cervical spine, 4 or 5 views. COMPARISON: CT ([id number], RTP HEAD/NECK 2MM LGE) 05/13/2017 9:08 AM FINDINGS: Moderate to severe loss of disc space at C4-C5 and C5-C6. Mild loss of disc space at C6-C7. Minimal degenerative retrolisthesis of C3 on C4 of about 1-2 mm. Bulky anterior spurs at C4-C5 and C5-C6. Minimal encroachment upon bony neural foramina at C4-C5 C5-C6 and C6-C7 by uncovertebral joint osteophytes formations. Prevertebral soft tissues and atlantoaxial relationship normal. Loss of lordosis may reflect spasm or guarding. IMPRESSION: Degenerative changes as above. REPORT SIGNED IN OTHER VENDOR SYSTEM 09/22/2018 Reported By: Buck Davies MD CC: Transcribed Date/Time: 09/22/2018 (3930) Nursery Nurse: Printed Date/Time: 04/24/2019 (0933) PAGE 1 Signed Report Clint Miramontes MD IMG DIAGNOSTIC IMAGI NG ORDERABLES documented in this encounter Visit Diagnoses Not on filedocumented in this encounter Care Teams Salesperson Handbags Relationship Specialty Start Date End Date Edison Miramontes DO PCP - General 05/14/17 08/22/19 documented as of this encounter
--- OUTSIDE RECORDS SUMMARY | 2024-08-07 13:40 | XMS_ITS | Encounter Summary ---
Author Organization [facility] Address [address] [place] [address] Care Team Providers Care Die Fitter Name Role Phone Cooper Mojica MD Primary Care Provider [phone] Encounter Details Date Type Department Care Team (Latest Contact Info) Description 02/19/2016 14:27 EDT - 02/19/2016 23:59 EDT Hospital Encounter [facility] [address] [place] [address] Unknown, Provider, Discharge Disposition: Home or Self [...] hours as needed for Pain. 06/04/2010 09/19/2019 aspirin 325 mg tablet Take 1 Tab by mouth daily. 06/04/2010 06/05/2022 BUTALBITAL/ASPIRIN/CAFFE INE (BUTALBITAL COMPOUND ORAL) Take 1-2 Tabs by mouth as needed. 11/05/2016 CALCIUM CARBONATE/VITAMIN D3 (CALCIUM 600 + D,3, ORAL) Take 2 Tabs by mouth daily. 11/05/2016 DIAZepam (VALIUM) 5 mg tablet 1 tab(s) orally during travel as needed 01/27/2014 05/07/2021 LORAZEPAM ORAL Take 1 mg by mouth at bedtime. 09/12/2010 09/19/2019 lovastatin (MEVACOR) 20 mg tablet Take 80 mg by mouth at bedtime. 09/19/2019 MULTIVITAMINS (MULTIVITAMIN ORAL) Take 1 Tab by mouth daily. 09/19/2019 documented as of this encounter Discharge Disposition Disposition Code Departure Means Destination Home or Self Jail documented in this encounter Plan of Treatment Upcoming Encounters Date Type Department Care Team (Late st Contact Info) Description 08/10/2024 16:00 EDT Appointment [facility] MRI [address] [place], [place] [address] 08/16/2024 14:00 EDT EMILIA [facility] OBGYN Ultrasound [address] [place] [address] [phone] 08/29/2024 14:00 EDT Office Visit [facility] OBGYN [address] [place] [address] [phone] Ness Vilchis MD [address] [place] [address], [address] [place] [phone] 08/31/2024 16:00 EDT Office Visit [facility] Orthopedics & Sport Medicine [address], [address] [place], [place] [phone] Reema Peoples PA-C 13[address] [facility] [address] [place] [address] 09/01/2024 9:30 EDT Office Visit [facility] Rheumatology [address] [place] [address] [phone] Lin Grider MD [address] [place] [address]B [address] [place] [address] 11/08/2024 14:00 EST Office Visit [facility] Adult Hematology & Oncology [facility] [place] [address] Luz Maria Peter, DIRECTOR OF AGRICULTURE [address] [facility], [facility] [address] [place] [address] 11/22/2024 10:15 EST Office Visit [facility] Family Medicine - [place] [address] [place] [address] Clint Miramontes MD [address] [place] [phone] documented as of this encounter Visit Diagnoses Not on filedocumented in this encounter Care Teams Die Fitter Relationship Specialty Start Date End Date Cooper Mojica MD [address] [place] [address] PCP - General 03/27/10 05/13/17 documented as of this encounter
--- OUTSIDE RECORDS SUMMARY | 2024-08-07 13:40 | XMS_ITS | Encounter Summary ---
Author Organization [facility] Address [address] [place] [address] Care Team Providers Care Media Reporter Name Role Phone Edison Miramontes DO Primary Care Provider [phone] Encounter Details Date Type Department Care Team (Late st Contact Info) Description 04/06/[address] [facility] Radiology Results [address] [place] [address] Clint Miramontes MD [address] [place] [phone] Social History Tobacco Use Types Packs/Day [...] Info) Description 08/10/2024 16:[address] [facility] MRI [address] [place], [place] [id number] 08/16/2024 14:[address] [facility] OBGYN Ultrasound [address] [place] [address] 08/29/2024 14:[address] [facility] OBGYN [address] [place] [address] [phone] Ness Vilchis MD [address] [place] [address], [address] [place] [address] 08/31/2024 16:[address] [facility] Orthopedics & Sport Medicine [address], [address] [place], [place] [phone] Reema Peoples PA-C [address] [facility] [address] [place], [place] [phone] 09/01/2024 9:[address] [facility] Rheumatology [address] [place] [address] [phone] Lin Grider MD [address] [place] [address] [address] [place] [address] 11/08/2024 14:[address] [facility] Adult Hematology & Oncology [address] [place] [address], [place] [phone] Luz Maria Peter NP [address] [place] [address], [facility] [address] [place] [address] 11/22/2024 10:[address] [facility] Family Medicine - [place] [address] [place] [address] [phone] Clint Miramontes MD [address] [place] [phone] documented as of this encounter Procedures Procedure Name Priority Date/Time Associated Diagnosis Comments MA BREAST SCREENING ELO BILATERAL 04/06/2019 10:06 EDT documented in this encounter Results * MA BREAST SCREENING ELO BILATERAL (04/06/2019 10:06 EDT) Anatomical Region Laterality Modality Breast Bilateral Other 04/06/2019 10:0 6 EDT Narrative 04/06/2019 10:06 EDT ? EXAM: MAMMOGRAM/MAMMO BILATERAL SCREEN W ??EX. D/ (1703) ? CLINICAL INFORMATION: ? Z12.31 SCREENING ? INDICATION: Z12.31 SCREENING SCREENING ??May 29, 18 ? COMPARISON: Comparison has been made to previous images. ? [...] ? areas of fibroglandular density. ? FINAL ASSESSMENT BILATERAL BREAST: ??BI-RADS Category 1 - Negative. ? Routine mammographic follow-up is recommended. ? These results will be communicated to your patient via a lay letter ? from Radiology. ??If any additional imaging is needed we will contact ? your patient directly. ? REPORT SIGNED IN OTHER VENDOR SYSTEM 04/06/2019 ?Reported By: Reji Carroll MD ? CC: ? Transcribed Date/Time: 04/06/2019 (1006) ? Hand Etcher: ? Printed Date/Time: 07/20/2019 (4788) ? PAGE 1 ? Signed Report ? Procedure Note Reji Carroll MD - 09/06/2019 EXAM: MAMMOGRAM/MAMMO BILATERAL SCREEN W EX. D/ (1703) CLINICAL INFORMATION: Z12.31 SCREENING INDICATION: Z12.31 SCREENING SCREENING March 30 COMPARISON: Comparison has been made to previous [...] are scattered areas of fibroglandular density. FINAL ASSESSMENT BILATERAL BREAST: BI-RADS Category 1 - Negative. Routine mammographic follow-up is recommended. These results will be communicated to your patient via a lay letter from Radiology. If any additional imaging is needed we willcontact your patient directly. REPORT SIGNED IN OTHER VENDOR SYSTEM 04/06/2019 Reported By: Reji Carroll MD CC: Transcribed Date/Time: 04/06/2019 (1006) Hand Etcher: Printed Date/Time: 07/20/2019 (1008) PAGE 1 Signed Report Clint Miramontes MD IMG MAMMOGRAPHY PRABHU CASPER documented in this encounter Visit Diagnoses Not on filedocumented in this encounter Care Teams Media Reporter Relationship Specialty Start Date End Date Edison Miramontes DO PCP - General 05/14/17 08/22/19 documented as of this encounter
--- OUTSIDE RECORDS SUMMARY | 2024-08-07 13:40 | XMS_ITS | Encounter Summary ---
Author Organization [facility] Address [address] [place] [address] Care Team Providers Care Cattle Sorter Name Role Phone Edison Miramontes DO Primary Care Provider Encounter Details Date Type Department Care Team (Late st Contact Info) Description 11/01/2018 Historical Results Only [facility] Radiology Results [address] [place] [address] Thea Mckeon, GABRIEL [address] [place] [address] [place] [phone] Social History Tobacco Use Types Packs/Day Years [...] 08/10/2024 16:00 EDT Appointment [facility] MRI [address] [place], [place] [address] 08/16/2024 14:00 EDT EMILIA [facility] OBGYN Ultrasound [address] [place] [address] 08/29/2024 14:00 EDT Office Visit [facility] OBGYN [address] [place] [address] Ness Vilchis MD [address] [place] [address], [address] [place] [address] 08/31/2024 16:00 EDT Office Visit [facility] Orthopedics & Sport Medicine [address], [address] [place] [address] Reema Peoples PA-C 1311 [facility] [address] [place], [place] [phone] 09/01/2024 9:30 EDT Office Visit [facility] Rheumatology [address] [place] [address] [phone] Lin Grider MD [address] [place] [address] [address] [place] [address] 11/08/2024 14:00 EST Office Visit [facility] Adult Hematology & Oncology [address] [place] [address], [place] [phone] Luz Maria Peter NP [address] [facility] [address] [place] [address] 11/22/2024 10:15 EST Office Visit [facility] Family Medicine - [place] [address] [place], [place] [phone] Clint Miramontes MD [address] [place] [address] documented as of this encounter Procedures Procedure Name Priority Date/Time Associated Diagnosis Comments XR CERVICAL SPINE FLEX.&EXT.ONLY 11/01/2018 15:21 EST documented in this encounter Results * XR CERVICAL SPINE FLEX.&EXT.ONLY (11/01/2018 15:21 EST) Anatomical Region Laterality Modality Spine Other 11/01/2018 15:2 1 EST Narrative 11/01/2018 15:24 EST ? EXAM: RADIOLOGY/CERVICAL SPINE FLEX ?? EXT EX. D/ (1506) ? CLINICAL INFORMATION: ? M54.2 CERVICAL PAIN ? CERVICAL SPINE FLEX ?? EXT ONLY ? Signs and Symptoms/Comments: M54.2 CERVICAL PAIN ? Comparison: Cervical spine radiographs on 09/22/2018. ? FINDINGS: ? Cervical Spine: Upright flexion and extension views were performed. ? There is slight degenerative anterolisthesis of C2 on C3 and C3 on C4 ? on flexion, which reduces on extension. No acute fracture is visible ? on the lateral views provided. Moderate-severe multilevel ? degenerative disc disease is most advanced at C4-C5 and C5-C6, with ? small posteriorly-directed osteophytes resulting at least mild spinal ? stenosis. Mild-moderate multilevel facet arthrosis is also present. ? The paraspinal soft tissues are unremarkable. Intracranial aneurysm ? embolization coils are again identified. ? IMPRESSION: ? 1. ??Degenerative grade 1 anterolisthesis of C2 on C3 and C3 on C4, ? WITH evidence of mild dynamic instability. ? 2. ??Advanced multilevel cervical degenerative changes, most prominent ? at C4-C5 and C5-C6. ? REPORT SIGNED IN OTHER VENDOR SYSTEM 11/01/2018 ?Reported By: Trent Burgess MD ? CC: ? Transcribed Date/Time: 11/01/2018 (1524) ? Fender Finisher: ? Printed Date/Time: 04/24/2019 (7045) ? PAGE 1 ? Signed Report ? Procedure Note Trent Burgess MD - 09/08/2019 EXAM: RADIOLOGY/CERVICAL SPINE FLEX EXT EX. D/ (1506) CLINICAL INFORMATION: M54.2 CERVICAL PAIN CERVICAL SPINE FLEX EXT ONLY Signs and Symptoms/Comments: M54.2 CERVICAL PAIN Comparison: Cervical spine radiographs on 09/22/2018. FINDINGS: Cervical Spine: Upright flexion and extension views were performed. There is slight degenerative anterolisthesis of C2 on C3 and C3 onC4 on flexion, which reduces on extension. No acute fracture isvisible on the lateral views provided. Moderate-severe multilevel degenerative disc disease is most advanced at C4-C5 and C5-C6, with small posteriorly-directed osteophytes resulting at least mildspinal stenosis. Mild-moderate multilevel facet arthrosis is also present. The paraspinal soft tissues are unremarkable. Intracranial aneurysm embolization coils are again identified. IMPRESSION: 1. Degenerative grade 1 anterolisthesis of C2 on C3 and C3 on C4, WITH evidence of mild dynamic instability. 2. Advanced multilevel cervical degenerative changes, mostprominent at C4-C5 and C5-C6. REPORT SIGNED IN OTHER VENDOR SYSTEM 11/01/2018 Reported By: Trent Burgess MD CC: Transcribed Date/Time: 11/01/2018 (1524) Fender Finisher: Printed Date/Time: 04/24/2019 (2720) PAGE 1 Signed Report Thea Mckeon CE[facility] IMG DIAGNOSTIC IMAGI NG ORDERABLES documented in this encounter Visit Diagnoses Not on filedocumented in this encounter Care Teams Cattle Sorter Relationship Specialty Start Date End Date Edison Miramontes DO PCP - General 05/14/17 08/22/19 documented as of this encounter
--- OUTSIDE RECORDS SUMMARY | 2024-08-07 13:40 | XMS_ITS | Encounter Summary ---
Author Organization [facility] Address [address] [place] [address] Care Team Providers Care Ct Technologist Name Role Phone Edison Miramontes DO Primary Care Provider [phone] Clint Miramontes MD Primary Care Provider [phone] Encounter Details Date Type Department Care Team (Late st Contact Info) Description 10/14/2018 Historical Results Only [facility] - [facility] Lab - Main [address] [phone] [place] [address] [facility] [address] [place] [address] Social History Tobacco Use Types Packs/Day Years [...] Contact Info) Description 08/10/2024 16:00 EDT Appointment [facility] MRI [address] [place] [address] 08/16/2024 14:00 EDT EMILIA [facility] OBGYN Ultrasound [address] [place] [address] 08/29/2024 14:00 EDT Office Visit [facility] OBGYN [address] [place] [address] Ness Vilchis MD [address] [place] [address], [address] [place] [phone] 08/31/2024 16:00 EDT Office Visit [facility] Orthopedics & Sport Medicine [address], [address] [place], [place] [phone] Reema Peoples PA-C 1311 [facility] [address] [place], [place] [phone] 09/01/2024 9:30 EDT Office Visit [facility] Rheumatology [address] [place] [address] [phone] Lin Grider MD [address] [place] [address] [address] [place] [address] 11/08/2024 14:00 EST Office Visit [facility] Adult Hematology & Oncology [address] [place] [address] [phone] Luz Maria Peter NP [address] [place] [address] [address] [place] [phone] 11/22/2024 10:15 EST Office Visit [facility] Family Medicine - [address] [address] Clint Miramontes MD [address] [place] [address] documented as of this encounter Procedures Procedure Name Priority Date/Time Associated Diagnosis Comments CBC W/PLT & DIFF,POINT OF CARE - [facility] Routine 10/14/2018 16:01 EST [facility] Routine 10/14/2018 16:01 EST documented in this encounter Results * [facility] (10/14/2018 16:01 EST) Pathologist [facility] LDH - [facility] [phone] - 618 U/L 10/14/2018 18:06 [facility] 10/14/2018 16:0 1 EST 10/14/2018 17:10 EST Sheyla Atwood MD CHEMISTRY & BLOOD GA S ORDERABLES [facility] * CBC W/PLT & DIFF,POINT OF CARE - [facility] (10/14/2018 16:01 EST) Pathologist [facility] ABSOLUTE NEUTROPHIL COUN - [facility] 2.6 1.7 - 7.0 10e3/uL 10/14/2018 17:25 [facility] BASO # - [facility] 0.03 0.0 - 0.3 10e3/uL 10/14/2018 17:25 [facility] BASO % - [facility] 1 0 - 2 % 10/14/2018 17:25 [facility] EOS # - [facility] 0.25 0.05 - 0.5 10e3/uL 10/14/2018 17:25 [facility] EOS % - [facility] 5 0 - 5 % 10/14/2018 17:25 [facility] GRAN % - [facility] 48.5 40 - 80 % 10/14/2018 17:25 [facility] HEMATOCRIT - CV 37.8 34.0 - 47.0 % 10/14/2018 17:25 [facility] HEMOGLOBIN - [facility] 12.3 11.2 - 15.7 g/dl 10/14/2018 17:25 [facility] LYMPH # - [facility] 2.0 0.9 - 2.9 10e3/ul 10/14/2018 17:25 [facility] LYMPH% - [facility] 37.4 20 - 40 % 10/14/2018 17:25 [facility] MEAN CORPUSCULAR HGB - [facility] 30.0 26 - 34 pg 10/14/2018 17:25 [facility] MEAN CORPUSCULAR HGB CONC - [facility] 32.5 31 - 36 g/dL 10/14/2018 17:25 [facility] MEAN CELL VOLUME - [facility] 92.2 77 - 100 fl 10/14/2018 17:25 [facility] MONO # - [facility] 0.5 0.3 - 0.9 10e3/uL 10/14/2018 17:25 [facility] MONO% - [facility] 8.8 0 - 12 % 10/14/2018 17:25 [facility] PLATELET COUNT 186 150 - 400 10e3/ul 10/14/2018 17:25 [facility] RED BLOOD COUNT - [facility] 4.10 3.8 - 5.2 10e6/ul 10/14/2018 17:25 [facility] RED CELL DISTRI WIDTH - [facility] 12.4 11.8 - 15.6 % 10/14/2018 17:25 [facility] WHITE BLOOD COUNT - [facility] 5.4 3.5 - 10.5 10e3/ul 10/14/2018 17:25 [facility] 10/14/2018 16:0 1 EST 10/14/2018 16:06 EST Sheyla Atwood MD CHEMISTRY & BLOOD GA S ORDERABLES [facility] documented in this encounter Visit Diagnoses Not on filedocumented in this encounter Care Teams Ct Technologist Relationship Specialty Start Date End Date Edison Miramontes DO PCP - General 05/14/17 08/22/19 Clint Miramontes MD [address] [place] [address] PCP - General 08/23/19 documented as of this encounter
--- OUTSIDE RECORDS SUMMARY | 2024-08-07 13:40 | XMS_ITS | Encounter Summary ---
Author Organization [facility] Address [address] [place] [address] Care Team Providers Care Professor Of Art History Name Role Phone Edison Miramontes DO Primary Care Provider [phone] Clint Miramontes MD Primary Care Provider [phone] Encounter Details Date Type Department Care Team (Late st Contact Info) Description 04/01/2018 Historical Results Only [facility] Radiology Results [address] [place], [place] [address] Clint Miramontes MD [address] [place] [phone] Social History Tobacco Use Types Packs/Day [...] [facility] [address] [place] [address] 08/16/2024 14:00 EDT EMILIA [facility] OBGYN Ultrasound [address] [place] [address] 08/29/2024 14:00 EDT Office Visit [facility] OBGYN [address] [place] [address] Ness Vilchis MD [address] [place] [address], [address] [place] [address] 08/31/2024 16:00 EDT Office Visit [facility] Orthopedics & Sport Medicine [address], [address] [place], [place] [phone] Reema Peoples PA-C [address] [facility] [address] [place], [place] [phone] 09/01/2024 9:30 EDT Office Visit [facility] Rheumatology [address] [place] [address] [phone] Lin Grider MD [address] [place] [address] [address] [place] [address] 11/08/2024 14:00 EST Office Visit [facility] Adult Hematology & Oncology [address] [place] [address] Luz Maria Peter NP [address] [place] [address] [address] [place] [phone] 11/22/2024 10:15 EST Office Visit [facility] Family Medicine - [address] [address] Clint Miramontes MD [address] [place] [phone] documented as of this encounter Procedures Procedure Name Priority Date/Time Associated Diagnosis Comments MA BREAST SCREENING ELO BILATERAL 04/01/2018 12:20 EDT documented in this encounter Results * MA BREAST SCREENING ELO BILATERAL (04/01/2018 12:20 EDT) Anatomical Region Laterality Modality Breast Bilateral Other 04/01/2018 12:2 0 EDT Narrative 04/01/2018 12:20 EDT ? EXAM: MAMMOGRAM/MAMMO BILATERAL SCREEN W ??EX. D/ (1565) ? CLINICAL INFORMATION: ? Z12.31 SCREENING ? INDICATION: Z12.31 SCREENING SCREENING May 16, 17 ? TECHNIQUE: ??Full field digital whole breast [...] is of ? scattered density. ? FINAL ASSESSMENT BILATERAL BREAST: ??BI-RADS Category 1 - Negative. ? Routine mammographic follow-up is recommended. ? These results will be communicated to your patient via a lay letter ? from Radiology. ??If any additional imaging is needed we will contact ? your patient directly. ? REPORT SIGNED IN OTHER VENDOR SYSTEM 04/01/2018 ?Reported By: French Dugan MD ? CC: ? Transcribed Date/Time: 04/01/2018 (1220) ? Product Development Consultant: ? Printed Date/Time: 04/22/2019 (4858) ? PAGE 1 ? Signed Report ? Procedure Note French Dugan MD - 09/08/2019 EXAM: MAMMOGRAM/MAMMO BILATERAL SCREEN W EX. D/ (2705) CLINICAL INFORMATION: Z12.31 SCREENING INDICATION: Z12.31 SCREENING SCREENING March 17 TECHNIQUE: Full field digital whole breast 2D (C-view) and 3D CCand MLO views of both breasts were obtained. CAD technology wasutilized. FINDINGS: The fibroglandular patterns of the breasts are normal. There has been no change when compared to previous mammograms and there is no mammographic evidence of cancer. The breast tissue isof scattered density. FINAL ASSESSMENT BILATERAL BREAST: BI-RADS Category 1 - Negative. Routine mammographic follow-up is recommended. These results will be communicated to your patient via a lay letter from Radiology. If any additional imaging is needed we willcontact your patient directly. REPORT SIGNED IN OTHER VENDOR SYSTEM 04/01/2018 Reported By: French Dugan MD CC: Transcribed Date/Time: 04/01/2018 (1220) Product Development Consultant: Printed Date/Time: 04/22/2019 (6353) PAGE 1 Signed Report Clint Miramontes MD IMG MAMMOGRAPHY ORDTiff BETANCOURTLES documented in this encounter Visit Diagnoses Not on filedocumented in this encounter Care Teams Professor Of Art History Relationship Specialty Start Date End Date Edison Miramontes DO PCP - General 05/14/17 08/22/19 Clint Miramontes MD [address] [place] [phone] PCP - General 08/23/19 documented as of this encounter
--- OUTSIDE RECORDS SUMMARY | 2024-08-07 13:41 | XMS_ITS | Encounter Summary ---
Author Organization [facility] Address [address] [place] [address] Care Team Providers Care Specialty Manufacturing Supervisor Name Role Phone Cooper Mojica MD Primary Care Provider [phone] Encounter Details Date Type Department Care Team (Latest Contact Info) Description 06/02/2013 11:54 EDT - 06/02/2013 23:[address] [facility] [address] [place] [address] Jeferson Alvares, DO [address] [place] [address] Discharge Disposition: Auto Discharge Social History Tobacco Use Types Packs/Day Years [...] Take 2 Tabs by mouth daily. 11/05/2016 LORAZEPAM ORAL Take 1 mg by mouth at bedtime. 09/12/2010 09/19/2019 MULTIVITAMINS (MULTIVITAMIN ORAL) Take 1 Tab by mouth daily. 09/19/2019 PRAVASTATIN SODIUM (PRAVASTATIN ORAL) Take 20 mg by mouth daily. 06/08/2014 documented as of this encounter Discharge Disposition Disposition Code Departure Means Destination Auto Discharge Home documented in this encounter Plan of Treatment Upcoming Encounters Date Type Department Care Team (Late st Contact Info) Description 08/10/2024 16:00 EDT Appointment [facility] MRI [address] [place], [place] [id number] 08/16/2024 14:00 EDT EMILIA [facility] OBGYN Ultrasound [address] [place] [phone] 08/29/2024 14:00 EDT Office Visit [facility] OBGYN [address] [place] [phone] Ness Vilchis MD [address] [place] [address], [address] [place] [phone] 08/31/2024 16:00 EDT Office Visit [facility] Orthopedics & Sport Medicine [address], [address] [place], [place] [phone] Reema Peoples PA-C [address] [facility] [address] [place], [place] [phone] 09/01/2024 9:30 EDT Office Visit [facility] Rheumatology [address] [place], [place] [phone] Lin Grider MD [address] [place] [address] [address] [place] [address] 11/08/2024 14:00 EST Office Visit [facility] Adult Hematology & Oncology [address] [place] [address], [place] [address] Luz Maria Peter NP [address] [place] [address] [address] [place] [phone] 11/22/2024 10:15 EST Office Visit [facility] Family Medicine - [employer] [address] [place] [address] Clint Miramontes MD [address] [place] [phone] documented as of this encounter Visit Diagnoses Not on filedocumented in this encounter Care Teams Specialty Manufacturing Supervisor Relationship Specialty Start Date End Date Cooper Mojica MD [address] [place] [id number] PCP - General 03/27/10 05/13/17 documented as of this encounter
--- OUTSIDE RECORDS SUMMARY | 2024-08-07 13:41 | XMS_ITS | Encounter Summary ---
Author Organization [facility] Address [address] [place] [address] Care Team Providers Care Flight Operations Engineer Name Role Phone Cooper Mojica MD Primary Care Provider [phone] Edison Miramontes DO Primary Care Provider [phone] Clint Miramontes MD Primary Care Provider [phone] Reason for Visit * Reason Comments Erroneous Encounter Encounter Details Date Type Department Care Team (Late st Contact Info) Description 06/03/2010 Documentation Visit [facility] Interventional Radiology - [address] [phone] Selam Becker PA-C [address] [place] [address], [address] [place] [address] Social History Tobacco Use Types Packs/Day Years Used Date Smoking Tobacco: Former Cigarettes 1 15 Comments:1982 quit Alcohol Use Standard Drinks/Week Comments No [...] Info) Description 08/10/2024 16:00 EDT Appointment [facility] [address] [place], [place] [phone] 08/16/2024 14:00 EDT EMILIA [facility] OBGYN Ultrasound [address] [place], [place] [phone] 08/29/2024 14:00 EDT Office Visit [facility] OBGYN [address] [place] [address] Ness Vilchis MD [address] [facility] [address] [place] [address] 08/31/2024 16:00 EDT Office Visit [facility] Orthopedics & Sport Medicine [address], [address] [place] [address] Reema Peoples PAToñoC [address] [facility] [address] [place], [place] [phone] 09/01/2024 9:30 EDT Office Visit [facility] Rheumatology [address] [place], [place] [phone] Lin Grider MD [address] [place], [place] [address] [address] [place] [address] 11/08/2024 14:00 EST Office Visit [facility] Adult Hematology & Oncology [address] [place] [address] Luz Maria Peter NP 130 [facility] [address] [place] [address] 11/22/2024 10:15 EST Office Visit [facility] Family Medicine - [place] [address] [place], [place] [phone] Clint Miramontes MD [address] [place] [phone] documented as of this encounter Visit Diagnoses Not on filedocumented in this encounter Care Teams Flight Operations Engineer Relationship Specialty Start Date End Date Cooper Mojica MD [address] [place] [address] PCP - General 03/27/10 05/13/17 Edison Miramontes DO [address] [place] [address] PCP - General 05/14/17 08/22/19 Clint Miramontes MD [address] [place] [phone] PCP - General 08/23/19 documented as of this encounter
--- OUTSIDE RECORDS SUMMARY | 2024-08-07 13:41 | XMS_ITS | Encounter Summary ---
Author Organization [facility] Address [address] [place] [address] Care Team Providers Care Procurement Forester Name Role Phone Cooper Mojica MD Primary Care Provider [phone] Reason for Visit * Reason Comments Follow-up s/p coil embolizatio n unruptured right PCOM aneurysm 06/2010 Encounter Details Date Type Department Care Team (Late st Contact Info) Description 06/02/2013 13:30 EDT Office Visit [facility] Interventional Radiology - [address] [address] Selam Becker PA-C [address] [place] [address], [address] [place] [phone] Cerebral aneurysm, nonruptured (Primary Dx) Discharge Disposition: Auto Discharge Social History Tobacco [...] Sign Reading Time Taken Comments Blood Pressure 123/71 06/02/2013 1351 EDT Pulse 56 06/02/2013 1351 EDT Temperature - - Respiratory Rate 12 06/02/2013 1351 EDT Oxygen Saturation - - Inhaled Oxygen Concentration - - Weight 48.5 kg (107 lb) 06/02/2013 1351 EDT Height 149.9 cm (4' 11) 06/02/2013 1351 EDT Body Mass Index 21.61 06/02/2013 1351 EDT documented in this encounter Patient Instructions * Patient Instructions* Selam Becker PA - 06/02/2013 13:41 EDT Your aneurysm is stable on MRA today. There continues to be a small amount of residual blood flowing into the neck, but we do not need to do anything about this other than continue to monitor it. I will arrange for you to return in one year for your next MRA and office visit. As always, please do not hesitate to contact me with any questions or concerns. BARNEY Lopez ?? You will receive a reminder appointment letter in the mail approximately 3 months before you aredue for your visit. documented in this encounter Discharge Disposition Disposition Code Departure Means Destination Auto Discharge documented in this encounter Progress Notes * Selam Becker PA - 06/02/2013 1527 EDT Subjective: Patient ID: Mel Ramirez is a 63 y.o. female. Chief Complaint Patient presents with ??? Follow-up s/p coil embolization unruptured right PCOM aneurysm 06/2010 HPI I had the pleasure of seeing Mel Ramirez today in the Neuro[facility]ventional Radiology [facility]. Mel is now 3 years s/p coil embolization of an unruptured right posterior communicating artery aneurysm. She is doing well. Her lymphoma is stable and does not require treatment. She recently started pravastatin after she reacted Crestor, and seems to be tolerating it well. She takes aspirin 325 mg daily. She is working, traveling, and generally enjoying life. Patient Active Problem List Diagnoses ??? Cerebral aneurysm, nonruptured ??? Hyperlipidemia ??? Anxiety ??? 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 Aneurysm ??? Hypercholesteremia ??? Psychiatric problem anxiety ??? Cancer lymphoma-marry marginal ??? 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 Inguinal lymphadenopathy Past Surgical History Procedure Date ??? Tonsillectomy ??? Hernia repair left groin ??? Lymph node biopsy left neck & node removal History reviewed. No pertinent family history. Social History Substance Use Topics ??? Smoking status: Former Smoker -- 1.0 packs/day for 15 years Quit date: 07/03/1982 ??? Smokeless tobacco: Never Used Comment: 1981 quit ??? Alcohol Use: No Outpatient Prescriptions Marked as Taking for the 06/02/13 encounter (Office Visit) with Selam Becker PA Medication Sig Dispense Refill ??? PRAVASTATIN SODIUM (PRAVASTATIN ORAL) Take 20 mg by mouth daily. ??? CALCIUM CARBONATE/VITAMIN D3 (CALCIUM 600 + D,3, ORAL) Take 2 Tabs by mouth daily. ??? cholecalciferol, Vitamin D3, (VITAMIN D) 1,000 unit tablet Take 1,000 Units by mouth daily. ??? aspirin 325 mg tablet Take 1 Tab by mouth daily. ??? MULTIVITAMINS (MULTIVITAMIN ORAL) Take 1 Tab by mouth daily. ??? LORAZEPAM ORAL Take 1 mg by mouth at bedtime. Allergies Allergen Reactions ??? No Known Drug Allergies ??? Other - See Comments Stings- swollen local reactions ROS - See HPI Objective: BP 123/71 Pulse 56 Resp 12 Ht 149.9 cm (59) Wt 48.535 kg (107 lb) BMI 21.61 kg/m2 Physical Exam The patient looks great today. She is alert, oriented and in no acute distress. Affect is bright, eye contact is good. Speech is fluent, linear and goal directed. Cranial nerves II through XII are intact and symmetric. Strength and sensation are intact throughout. She ambulates independently with anarrow based and stable gait. Imaging: MRA head 06/02/13: Findings: Susceptibility artifact is again seen in the previously embolized right posterior communicating artery aneurysm. The posterior communicating artery remains patent. There is a small residualneck which is stable when compared to prior examinations. No additional aneurysm is seen. Axial images of the brain show no mass or midline shift. No extra-axial collection is seen. Calvarial osseousand scalp soft tissue structures are grossly unremarkable. Impression: Stable appearance of small residual aneurysm neck Assessment/Plan: 63-year-old woman who is now 3 years status post coil embolization of an incidentally discovered right ACOM aneurysm. There is a small residual aneurysm neck which is stable over several years of imaging and does not require any treatment at this time. We will continue to monitor with serial imaging, and I will arrange for her to return in one year for her next MRA. She should continue to take aspirin daily. She is currently taking 325 mg and may reduce this to 81mg if she prefers. I spent a total of 20 minutes in face to face time with this patient and 18 minutes of that time was spent in disease review, image review, counseling, treatment planning and coordination of care as described in the progress note. Dr. Cecil Harmon was immediately available for consultation during today's evaluation. BARNEY Lopez CC: Cooper Mojica M.D. documented in this encounter Plan of Treatment Upcoming Encounters Date Type Department Care Team (Late st Contact Info) Description 08/10/2024 16:00 EDT Appointment [facility] MRI [address] [place], [place] [id number] 08/16/2024 14:00 EDT EMILIA [facility] OBGYN Ultrasound [address] [place], [place] [phone] 08/29/2024 14:00 EDT Office Visit [facility] OBGYN [address] [place], [place] [phone] Ness Vilchis MD 130 [facility], [address] [place] [phone] 08/31/2024 16:00 EDT Office Visit [facility] Orthopedics & Sport Medicine [address], [address] [place], [place] [phone] Reema Peoples PA-C [address] [facility] [address] [place] [address] 09/01/2024 9:30 EDT Office Visit [facility] Rheumatology 130 [place] [address] Lin Grider MD 130 [facility] [address] [place] [address] 11/08/2024 14:00 EST Office Visit [facility] Adult Hematology & Oncology [facility] [place] [address] Luz Maria Peter NP 130 [facility] [address] [place] [address] 11/22/2024 10:15 EST Office Visit [facility] Family Medicine - [place] [address] [place] [address] Clint Miramontes MD [address] [place] [phone] documented as of this encounter Procedures Procedure Name Priority Date/Time Associated Diagnosis Comments MR ANGIO HEAD WO CONTRAST 06/08/2014 13:18 EDT documented in this encounter Results * MR ANGIO HEAD WO CONTRAST (06/08/2014 13:18 EDT) Anatomical Region Laterality Modality Other 06/08/2014 13:1 8 EDT 06/08/2014 17:08 EDT Narrative 06/08/2014 17:08 EDT MR ANGIO HEAD WO CONTRAST ??06/08/2014 1:18 PM Signs and Symptoms/Comments: 437.3-Cerebral aneurysm, [id number]; s/p coil embolization right PCOM aneurysm 2009 Comparison June 02, 2013. Axial scans with review of source and reconstructed images as well as axial T1 scans. Axial T1 scan of the brain does not include the uppermost brain. The ventricles and sulci are possibly minimally larger than the prior study but still within normal limits.. No shift. No mass. There is no gross new abnormality the skull base. Left carotid: No stenosis. No cavernous aneurysm or aneurysm in the region of the anterior communicating artery or middle cerebral artery trifurcation. Prominent posterior communicating demonstrated. Left vertebral: No intracranial stenosis. No aneurysm at the origin of posterior inferior cerebellar artery. No basilar stenosis or basilar tip aneurysm demonstrated. Right vertebral: No intracranial stenosis. No aneurysm at the origin of posterior inferior cerebellar artery. Right carotid: No stenosis. There is irregularity in the region of the coiling which has previously been referred to as residual neck of the aneurysm. This is not grossly changed in appearance given the slightly thinner slice thickness on this examination. This is also compared to the study of 2011 done with similar slice thickness as well as on a 3 Rossana magnet. This appears unchanged since that exam as well. Reconstructions reveal no intracranial stenoses. Impression: 1. ??No significant change since previous examination with unchanged appearance of the residual neck of the previously coiled right posterior communicating artery aneurysm. 2. Possible mild interval atrophy since previous study although the ventricles and sulci are still within normal limits for age. Procedure Note 06/08/2014 MR ANGIO HEAD WO CONTRAST 06/08/2014 1:18 PM Signs and Symptoms/Comments: 437.3-Cerebral aneurysm, [id number]; s/p coil embolization right PCOM aneurysm 2009 Comparison June 02, 2013. Axial scans with review of source and reconstructed images as well as axial T1 scans. Axial T1 scan of the brain does not include the uppermost brain. The ventricles and sulci are possibly minimally larger than the prior study but still within normal limits.. No shift. No mass. There is no gross new abnormality the skull base. Left carotid: No stenosis. No cavernous aneurysm or aneurysm in the region of the anterior communicating artery or middle cerebral artery trifurcation. Prominent posterior communicating demonstrated. Left vertebral: No intracranial stenosis. No aneurysm at the origin of posterior inferior cerebellar artery. No basilar stenosis or basilar tip aneurysm demonstrated. Right vertebral: No intracranial stenosis. No aneurysm at the origin of posterior inferior cerebellar artery. Right carotid: No stenosis. There is irregularity in the region of the coiling which has previously been referred to as residual neck of the aneurysm. This is not grossly changed in appearance given the slightly thinner slice thickness on this examination. This is also compared to the study of 2011 done with similar slice thickness as well as on a 3 Rossana magnet. This appears unchanged since that exam as well. Reconstructions reveal no intracranial stenoses. Impression: 1. No significant change since previous examination with unchanged appearance of the residual neck of the previously coiled right posterior communicating artery aneurysm. 2. Possible mild interval atrophy since previous study although the ventricles and sulci are still within normal limits for age. Selam Becker PA-C [facility] ORDERABLE S documented in this encounter Visit Diagnoses Diagnosis Cerebral aneurysm, nonruptured- Primary documented in this encounter Discontinued Medications Medication Sig Discontinue Reason Start Date End Da te rosuvastatin (CRESTOR) 10 mg tablet Take 10 mg by mouth at bedtime. Discontinued by another clinician 06/02/2013 ascorbic acid (VITAMIN C) 500 mg tablet Take 500 mg by mouth daily. Patient Stopped Taking 06/02/2013 diphenhydrAMINE (BENADRYL) 25 mg capsule Take 25 mg by mouth every 6 hours as needed. Allergic reaction 06/02/2013 documented as of this encounter Historical Medications * This list may reflect changes made after this encounter. Medication Sig Dispensed Refills Start Date End Date PRAVASTATIN SODIUM (PRAVASTATIN ORAL) Take 20 mg by mouth daily. 06/08/2014 added in this encounter Care Teams Procurement Forester Relationship Specialty Start Date End Date Cooper Mojica MD [address] [place] [address] PCP - General 03/27/10 05/13/17 documented as of this encounter
--- OUTSIDE RECORDS SUMMARY | 2024-08-07 13:41 | XMS_ITS | Encounter Summary ---
Author Organization [facility] Address [address] [place] [address] Care Team Providers Care Supervisor Accounting Clerks Name Role Phone Cooper Mojica MD Primary Care Provider [phone] Encounter Details Date Type Department Care Team (Late st Contact Info) Description 10/28/2012 Results Only [facility] Laboratory Services - [address] [phone] Shwetha Stevenson MD Social History Tobacco Use Types Packs/Day Years [...] Info) Description 08/10/2024 16:00 EDT Appointment [facility] MRI [address] [place] [address] 08/16/2024 14:00 EDT EMILIA [facility] OBGYN Ultrasound [address] [place] [phone] 08/29/2024 14:00 EDT Office Visit [facility] OBGYN [address] [place] [address] Ness Vilchis MD 130 [facility], [address] [place] [address] 08/31/2024 16:00 EDT Office Visit [facility] Orthopedics & Sport Medicine [address], [address] [place], [place] [phone] eRema Peoples PA-C [address] [facility] [address] [place], [place] [address] 09/01/2024 9:30 EDT Office Visit [facility] Rheumatology [address] [place], [place] [phone] Lin Grider MD 130 [facility] [address] [place] [address] 11/08/2024 14:00 EST Office Visit [facility] Adult Hematology & Oncology [address] [place] [address], [place] [address] Luz Maria Peter, GABRIEL 130 [facility] [address] [place] [address] 11/22/2024 10:15 EST Office Visit [facility] Family Medicine - [place] [address] [place] [address] Clint Miramontes MD [address] [place] [phone] documented as of this encounter Procedures Procedure Name Priority Date/Time Associated Diagnosis Comments SURGICAL PATHOLOGY Routine 10/28/2012 14 :43 EST documented in this encounter Results * SURGICAL PATHOLOGY (10/28/2012 14:43 EST) Pathology Report: SURGICAL PATHOLOGY REPORT Reports generated via electronic interface contain original data; however they are lacking the format of the original report. Caution should be taken when reading/interpreti ng unformatted reports. Name: ? DEANA COY ? Accession #: ? [id number] ? : ? 1950 (Age: 62) ??F ? Collect Date: ? 10/28/2012 ? Location: ? [facility] ? Receive Date: ? 10/28/2012 ? Provider: SHWETHA STEVENSON MD Copy to: JADA ASTUDILLO [facility] COOPER MOJICA MD ? Final Pathologic Diagnosis: ? Skin of thigh, right, punch biopsy ([facility] [id number]; 10/21/2012): - Superficial perivascular dermatitis with spongiosis and interface inflammation. ??See microscopic ??and comment. Comment: ? The biopsy is notable for a superficial perivascular inflammatory infiltrate associated with interface vacuolar change and spongiosis of the epidermis. ??This constellation of changes is relatively non-specific, but most suggestive of a drug-related eruption. ??There is erythrocyte extravasation and, given the clinical history, this also raises the possibility of a form of pigmented purpuric dermatitis (PPD). ??However, the degree of interface vacuolization is somewhat greater than that generally seen in PPD. ??There is no evidence of vasculitis. ??In one-half of the biopsy, the degree of erythrocyte extravasation is greater within the reticular dermis and has features suggestive of trauma (ecchymosis or hematoma). ??(Dr. Longo)/justus Microscopic Description: ? Sections (original and deeper levels prepared from the paraffin block) consist of a bisected punch biopsy of skin to the mid reticular dermis. ??The majority of the stratum corneum consists of a normal layer of basketweave orthokeratin. ??There are rare small foci of parakeratosis. ??The epidermis is of relatively normal thickness, but has a somewhat blunted rete ridge pattern in some areas. ??There is a superficial perivascular and, to a lesser extent, interstitial inflammatory infiltrate. ??The infiltrate is patchy, but generally moderate in density. ??The infiltrate is composed primarily of small lymphocytes with occasional histiocytes. ??A rare eosinophil is also noted. ??The overlying epidermis shows interface vacuolar change with occasional necrotic basal keratinocytes. ??There are also areas of mild spongiosis with exocytosis of small lymphocytes. ??The vessels of the superficial plexus show mild reactive changes and there is focal erythrocyte extravasation. ??In one-half of the biopsy, in the deeper dermis, there is more extensive extravasation. ??(Dr. Longo)/amelian Document reviewed and electronically signed by: NATALI LONGO MD Report ??Date: 10/29/2012 12:36 By the signature above, the attending physician certifies that he/she has personally conducted a gross and/or microscopic examination of the described specimens and rendered or confirmed the above diagnosis. Specimen(s) Received: ? [facility] [id number] (1); 1 block Clinical History: ? Rt thigh skin lesion Gross Description: ? One slide and one block are received for review from [facility] each labelled [id number]. ?? End of Report [facility] 10/28/2012 14:4 3 EST 10/28/2012 14:43 EST Shwetha Stevenson MD PATHOLOGY ORDERABLES [facility] [address] [place] [address] documented in this encounter Visit Diagnoses Not on filedocumented in this encounter Care Teams Supervisor Accounting Clerks Relationship Specialty Start Date End Date Cooper Mojica MD [address] [place] [address] PCP - General 03/27/10 05/13/17 documented as of this encounter
--- OUTSIDE RECORDS SUMMARY | 2024-08-07 13:41 | XMS_ITS | Encounter Summary ---
Author Organization [facility] Address [address] [place] [address] Care Team Providers Care Drainage Inspector Name Role Phone Cooper Mojica MD Primary Care Provider [phone] Encounter Details Date Type Department Care Team (Latest Contact Info) Description 12/05/2010 7:48 EST - 12/05/2010 23:59 EST Hospital Encounter [facility] [place], operated [facility] [address] [place] [address] Jeferson Alvares, DO [address] [place] [address] Discharge Disposition: Auto Discharge Social [...] Sig Dispensed Refills Start Date End Date acetaminophen (TYLENOL) 500 mg tablet Take 2 Tabs by mouth every 6 hours as needed for Pain. 06/04/2010 09/19/2019 ascorbic acid (VITAMIN C) 500 mg tablet Take 500 mg by mouth daily. 06/02/2013 aspirin 325 mg tablet Take 1 Tab by mouth daily. 06/04/2010 06/05/2022 BUTALBITAL/ASPIRIN/CAFFEI NE (BUTALBITAL COMPOUND ORAL) Take 1-2 Tabs by mouth as needed. 11/05/2016 LORAZEPAM ORAL Take 1 mg by mouth at bedtime. 09/12/2010 09/19/2019 MULTIVITAMINS (MULTIVITAMIN ORAL) Take 1 Tab by mouth daily. 09/19/2019 rosuvastatin (CRESTOR) 10 mg tablet Take 10 mg by mouth at bedtime. 06/02/2013 documented as of this encounter Discharge Disposition Disposition Code Departure Means Destination Auto Discharge Home documented in this encounter Plan of Treatment Upcoming Encounters Date Type Department Care Team (Late st Contact Info) Description 08/10/2024 16:00 EDT Appointment [facility] MRI [address] [place], [place] [phone] 08/16/2024 14:00 EDT EMILIA [facility] OBGYN Ultrasound [address] [place] [address] 08/29/2024 14:00 EDT Office Visit [facility] OBGYN [address] [place] [phone] Ness Vilchis MD [address] [place] [address], [address] [place] [address] 08/31/2024 16:00 EDT Office Visit [facility] Orthopedics & Sport Medicine [address], [address] [place], [place] [phone] Reema Peoples PA-C [address] [facility] [address] [place], [place] [address] 09/01/2024 9:30 EDT Office Visit [facility] Rheumatology [address] [place], [place] [phone] Lin Grider MD [address] [place] [address] [address] [place] [phone] 11/08/2024 14:00 EST Office Visit [facility] Adult Hematology & Oncology [facility] [place] [address] Luz Maria Peter NP [address] [facility], [facility] [address] [place] [phone] 11/22/2024 10:15 EST Office Visit [facility] Family Medicine - [place] [address] [place] [address] Clint Miramontes MD [address] [place] [phone] documented as of this encounter Visit Diagnoses Not on filedocumented in this encounter Care Teams Drainage Inspector Relationship Specialty Start Date End Date Cooper Mojica MD [address] [place] [phone] PCP - General 03/27/10 05/13/17 documented as of this encounter
--- OUTSIDE RECORDS SUMMARY | 2024-08-07 13:41 | XMS_ITS | Encounter Summary ---
Author Organization [facility] Address [address] [place] [address] Care Team Providers Care Ring Attacher Name Role Phone Cooper Mojica MD Primary Care Provider [phone] Edison Miramontes DO Primary Care Provider [phone] Encounter Details Date Type Department Care Team (Late st Contact Info) Description 02/01/2015 Historical Results Only [facility] Radiology Results [address] [place], [place] [id number] Cooper Mojica MD [address] [place] [address] Social History Tobacco Use Types Packs/Day [...] Contact Info) Description 08/10/2024 16:00 EDT Appointment [facility] MRI [address] [place], [place] [address] 08/16/2024 14:00 EDT EMILIA [facility] OBGYN Ultrasound [address] [place], [place] [address] 08/29/2024 14:00 EDT Office Visit [facility] OBGYN [address] [place] [address] Ness Vilchis MD 130 [facility], [address] [place] [phone] 08/31/2024 16:00 EDT Office Visit [facility] Orthopedics & Sport Medicine [address], [address] [place], [place] [phone] Reema Peoples PA-C [address] [facility] [address] [place], [place] [phone] 09/01/2024 9:30 EDT Office Visit [facility] Rheumatology [address] [place] [phone] Lin Grider MD [address] [place] [address] [address] [place] [address] 11/08/2024 14:00 EST Office Visit [facility] Adult Hematology & Oncology [address] [place] [phone] Luz Maria Peter NP [address] [place] [address] [address] [place] [address] 11/22/2024 10:15 EST Office Visit [facility] Family Medicine - [place] [address] [place] [address] Clint Miramontes MD [address] [place] [phone] documented as of this encounter Visit Diagnoses Not on filedocumented in this encounter Care Teams Ring Attacher Relationship Specialty Start Date End Date Cooper Mojica MD [address] [place] [address] [place] [address] PCP - General 03/27/10 05/13/17 Edison Miramontes DO [address] [place] [address] PCP - General 05/14/17 08/22/19 documented as of this encounter
--- OUTSIDE RECORDS SUMMARY | 2024-08-07 13:41 | XMS_ITS | Encounter Summary ---
Author Organization [facility] Address [address] [place] [address] Care Team Providers Care Grey Tender Name Role Phone Cooper Mojica MD Primary Care Provider [phone] Encounter Details Date Type Department Care Team (Latest Contact Info) Description 06/03/2012 11:16 EDT - 06/03/2012 23:59 EDT Hospital Encounter [facility] [address] [place] [address] Jeferson Alvares, DO [address] [place] [address] Discharge Disposition: Auto Discharge Social [...] Take 2 Tabs by mouth daily. 11/05/2016 diphenhydrAMINE (BENADRYL) 25 mg capsule Take 25 mg by mouth every 6 hours as needed. 06/02/2013 LORAZEPAM ORAL Take 1 mg by mouth [...] [facility] MRI [address] [place], [place] [address] 08/16/2024 14:00 EDT EMILIA [facility] OBGYN Ultrasound [address] [place] [address] 08/29/2024 14:00 EDT Office Visit [facility] OBGYN [address] [place], [place] [phone] Ness Vilchis MD 130 [facility], [address] [place] [phone] 08/31/2024 16:00 EDT Office Visit [facility] Orthopedics & Sport Medicine [address], [address] [place], [place] [address] Reema Peoples PA-C [address] [facility] [address] [place], [place] [address] 09/01/2024 9:30 EDT Office Visit [facility] Rheumatology [address] [place] [address] Lin Grider MD 130 [facility] [address] [place] [address] 11/08/2024 14:00 EST Office Visit [facility] Adult Hematology & Oncology [facility] [place] [address] Luz Maria Peter NP 130 [facility], [facility] [address] [place] [address] 11/22/2024 10:15 EST Office Visit [facility] Family Medicine - [place] [address] [place], [place] [phone] Clint Miraomntes MD [address] [place] [phone] documented as of this encounter Visit Diagnoses Not on filedocumented in this encounter Care Teams Grey Tender Relationship Specialty Start Date End Date Cooper Mojica MD [address] [place] [address] PCP - General 03/27/10 05/13/17 documented as of this encounter
--- OUTSIDE RECORDS SUMMARY | 2024-08-07 13:41 | XMS_ITS | Encounter Summary ---
Author Organization [facility] Address [address] [place] [address] Care Team Providers Care Production Planner Name Role Phone Cooper Mojica MD Primary Care Provider [phone] Encounter Details Date Type Department Care Team (Late st Contact Info) Description 07/31/2015 6:52 EDT - 07/31/2015 22:50 EDT Hospital Encounter [facility] Cardiovascular Unit [address] [place] [address] Cecil Harmon MD 111 [facility] 1 [place] [address] Discharge Disposition: Home or Self Care Social [...] Sign Reading Time Taken Comments Blood Pressure 126/77 07/31/2015 1200 EDT Pulse - - Temperature - - Respiratory Rate 16 07/31/2015 1007 EDT Oxygen Saturation 97% 07/31/2015 1200 EDT Inhaled Oxygen Concentration - - Weight 48 kg (105 lb 12.8 oz) 07/31/2015723 ED T Height 149.9 cm (4' 11) 07/31/2015723 EDT Body Mass Index 21.37 07/31/2015723 EDT documented in this encounter Discharge Instructions * Discharge Instructions* Selam Becker PA-C - 07/31/2015 13:00 EDT RADIOLOGY PATIENT EDUCATION INSTRUCTIONS FOLLOWING AN ANGIOGRAM OF THE HEAD Procedure Wound Site - right Femoral artery Dr. Cecil Harmon MD has completed an angiogram of your head. Your aneurysm remains well-treated. No new aneurysms were seen. At this point we can discontinue routine monitoring. Please do not hesitate to call us with any questions. We will always be available to you. It has been a pleasure participating in your care! Selam Becker PA-C 1. Please drink extra fluids today (6-8 glasses). This will encourage the excretion of the contrastdye material. 2. Do not drive or make any legal decisions today as you have received medications. 3. If you feel a tingling sensation or lack of feeling in the affected extremity, call your local doctor. 4. If you note any signs of bleeding, such as bulging under the skin the size of a golf ball, put direct pressure to the area, call your doctor, and go to the nearest emergency room or call 911 for assistance. 5. You may resume all of your normal dietary and medication requirements. 6. Leave the sterile dressing on for 24 hours, then shower and clean the area daily. Place a clean Band-Aid over the site each day for 5 days. 7. Do not take a tub bath, go in a hot tub or submerge in water for 5 days. 8. Do not put lotions or powder on the area for 5 days. 9. Report any signs of infection (redness, swelling, discharge and fever) to your doctor. 10. No lifting > 20 lbs. or heavy exertion for 5 days after procedure. The results of your Angiogram will be sent directly to your physician within 3 working days. CLOSURE DEVICE Mynx Vascular closure devise. It is uses a soft sponge-like material to close the small hole in your artery after your procedure. It works by rapidly absorbing the blood around the puncture site, which stops the bleeding and immediately seals the hole. Mynx will completely absorbed by your body within 30 days, leaving nothing behind but a healed artery IF YOU HAVE ANY QUESTIONS OR CONCERNS REGARDING THE PROCEDURE, PLEASE CALL THE INTERVENTIONAL RADIOLOGY CLINIC AT . SOMEONE IS AVAILABLE TO TAKE YOUR CALL 24 HOURS A DAY. documented in this encounter Medications at Time [...] documented in this encounter Progress Notes * Winnie Danielle, RN - 07/31/2015 1102 EDT 1100 Report received from Marie Duval RN to assume care of the pt 1105 Pt sleeping comfortably, call goldsmith in reach 1130 Report given to Marie Duval RN to assume care of the pt * Marie Kirby RN - 07/31/2015 1004 EDT At 1002 pt admitted to CVU per stretcher from angio status post cerebral angio. Right groin with dressing dry and intact. + pedal pulse. Bed in lowest position. Side rails up. Call goldsmith within reach.Nadia PO liquids. No one at bedside. 1100 Report to Bernarda Love for lunch relief. 1130 Assumed care of this pt. She is sleeping as she requested. Dressing remains without signs of bleeding. 1235 Out of bed to chair. Eating sandwich and drinking water. 1310 Selam Becker here to see pt. Patient demonstrates willingness and understanding of post-procedure instructions. They have been reviewed with her and questions answered. Ambulated to bathroom. IV d/c'd intact. * Erin Hamilton RN - 07/31/2015 0814 EDT Labs, Medication, allergies, Pt history reviewed. Pt greeted in CVU ID'd by name, and viewed name Bracelet. Pt in room time is 0838 . Assessed IV. As the nurse in the room I explained goals of procedure and sedation relating to nursing goals. Pt acknowledges all her questions have been answered and verbalizes understanding of procedure, conscious sedation. Consent for the procedure and sedation reviewed. Pt positioned Supine on the angio 23 table, pads under elbows, Safety straps in place. bilat pedal pulses palpable pre-procedure VS assessed. Administration of conscious sedation began at 0850 . Sterile prep of bilat groins with Chloraprep in the usual sterile fashion. Sibley moment at start of procedure cerebral angiogram At 0915 between NNEKA SALAZAR. COOK. At start of the procedure the patient is awake. Right femoral access fluoro guided cerebral angiogram, mynx vascular closure device deployed in right femoral puncture site at end of procedure Defer to Physicians note for procedure outcomes Medications administered during the procedure, over 50 minutes of time in titrated, divided doses, Versed 3 Mg Fentanyl 100 Mcg IV. Pt tolerated procedure well, report called to Deborah AIKEN CVU, bilat pedal pulses palpable post procedure, transported back to CVU supine, flat on stretcher, upon leaving angio 23 suite right femoral dressing clean dry intact, right femoral puncture site soft and without hematoma. Discharge instructions placed in prism. * Marie Kirby RN - 07/31/2015 0744 EDT Mel Ramirez arrived to the Cardiovascular Unit via ambulatory. Patient greeted and [facility] policy, Allergies, procedure verified & patient oriented to Unit. Reviewed all pre-procedure instructions with eMl Ramirez. Patient denies pain. Discussed history, med list, allergies, NPO, sedation,& procedure information. All questions answered & patient verbalizes understanding. Pre-angio prep completed. Patient stretcher in low position with side rails up & callbell within patient reach. Patient's daughter is to be called 30 min prior to discharge &she ispost procedure road oiling truck driver. * Maddi Batista RN - 07/30/2015 1248 EDT Message left with patient regarding procedure scheduled for 07/31/15. Instructed to arrive in registration at 0645. Instructed to be NPO after midnight however may take routine meds in am with a sip of water. Asked Mel to bring a current medication list for review prior to procedure. Instructed to have a road oiling truck driver due to sedation. Explained bedrest post procedure. Asked that she not bring any valuables to hospital for procedure. Gave phone number to CVU for any questions. 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 No Allergies: Allergies Allergen Reactions ??? No Known Drug Allergies ??? Other - See Comments Stings- swollen local reactions Current Medications: Prescriptions prior to admission Medication Sig Dispense Refill Last Dose ??? acetaminophen (TYLENOL) 500 mg tablet Take 2 Tabs by mouth every 6 hours as needed for Pain. Unknown ??? aspirin 325 mg tablet Take 1 Tab by mouth daily. 07/30/2015 ??? BUTALBITAL/ASPIRIN/CAFFEINE (BUTALBITAL COMPOUND ORAL) Take 1-2 Tabs by mouth as needed. Not Taking ??? CALCIUM CARBONATE/VITAMIN D3 (CALCIUM 600 + D,3, ORAL) Take 2 Tabs by mouth daily. 07/30/2015 ??? cholecalciferol, Vitamin D3, (VITAMIN D) 1,000 unit tablet Take 1,000 Units by mouth daily. 07/30/2015 ??? LORAZEPAM ORAL Take 1 mg by mouth at bedtime. 07/30/2015 ??? lovastatin (MEVACOR) 20 mg tablet Take 40 mg by mouth at bedtime 07/30/2015 ??? MULTIVITAMINS (MULTIVITAMIN ORAL) Take 1 Tab by mouth daily. 07/30/2015 Past Medical History: Past Medical History Diagnosis Date ??? Aneurysm ??? Hypercholesteremia ??? Psychiatric problem anxiety ??? Cancer lymphoma-marry marginal ??? 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 Inguinal lymphadenopathy Social History: Past Surgical History Procedure Laterality Date ??? Tonsillectomy ??? Hernia repair left groin ??? Lymph node biopsy left neck & node removal History Substance Use Topics ??? Smoking status: Former Smoker -- 1.00 packs/day for 15 years Quit date: 07/03/1982 ??? Smokeless tobacco: Never Used Comment: 1981 quit ??? Alcohol Use: No Family History: History reviewed. No pertinent family history. Review of Systems as pertinent: Neg Physical: Vital Signs: BP 127/68 mmHg Temp(Src) (Temporal) Resp 16 Ht 149.9 cm (59) Wt 47.991 kg (105 lb 12.8 oz) BMI 21.36 kg/m2 SpO2 98% Heart Examination: Cardiac Regularity: Regular Respiratory Examination: Respiratory Pattern: Regular Breath Sounds Right: Clear Breath Sounds Left: Clear Additional physical exam related to the proposed procedure, patient activity, disease state and treatment as pertinent: Nonfocal Assessment: Previous complications with sedation or anesthesia?: No Airway Concerns: None Anesthesia Classification: ASA 2 Fasting Time: Time of last liquid intake: 414 Date of Last Liquid Intake: 07/30/15 Time of last solid intake: 1900 Date of last solid intake: 07/30/15 Patient Appropriate Candidate for Planned Sedation?: Yes Plan: Cerebral angiogram uner moderate sedation today. Creatinine/GFR wnl. --verbal and written consent obtained from pt. Selam Becker PA-C 07/31/2015 8:26 documented in this encounter Procedure Notes * Cecil Harmon MD - 07/31/2015 0947 EDTPre-Procedure Diagnose(s): Cerebral aneurysm, nonruptured Post-Procedure Diagnose(s): Cerebral aneurysm, nonruptured NEUROINTERVENTIONAL RADIOLOGY Mel Ramirez 65 y.o. female LOS: 0 days Code Status: Prior PREPROCEDURE CLINICAL PROBLEMS Active Problems: * No active hospital problems. * LABORATORY RESULTS NA PROCEDURE 1. Bilateral Common Carotid Artery Angiogram 2. Bilateral Internal Carotid Artery Angiogram 3. Left Vertebral Artery Angiogram Access [facility]: [facility] Total fluoroscopy time: 4.7 minutes Total contrast volume load: 30 cc SURGEONS: Cecil Harmon MD Psychiatric Aides Teacher: RT Oswaldo ANESTHESIA: IV sedation with versed and fentanyl PRELIMINARY FINDINGS: A time-out was completed prior to procedure verifying correct patient, procedure, site, positioning, and special equipment if applicable. No residual aneurysm. No new aneurysm. COMPLICATIONS: None PLAN: Bedrest for [address] Cecil Harmon Neurointerventional Radiology [facility] documented in this encounter Plan of Treatment Upcoming Encounters Date Type Department Care Team (Late st Contact Info) Description 08/10/2024 16:00 EDT Appointment [facility] MRI [address] [place] [address] 08/16/2024 14:00 EDT EMILIA [facility] OBGYN Ultrasound [address] [place] [address] 08/29/2024 14:00 EDT Office Visit [facility] OBGYN [address] [place] [address] Ness Vilchis MD 130 [facility], [address] [place] [address] 08/31/2024 16:00 EDT Office Visit [facility] Orthopedics & Sport Medicine [address], [address] [place], [place] [phone] Reema Peoples PA-C [address] [facility] [address] [place], [place] [address] 09/01/2024 9:30 EDT Office Visit [facility] Rheumatology 130 [facility], [place] [phone] Lin Grider MD 130 [facility] [address] [place] [address] 11/08/2024 14:00 EST Office Visit [facility] Adult Hematology & Oncology [facility], [place] [phone] Luz Maria Peter NP 130 [facility] [address] [place] [address] 11/22/2024 10:15 EST Office Visit [facility] Family Medicine - [place] [address] [place] [address] Clint Miramontes MD [address] [place] [phone] documented as of this encounter Visit Diagnoses Not on filedocumented in this encounter Administered Medications Inactive Administered Medications - up to 3 most recent administrations Medication Order MAR Action Action Date Dose Rate Site fentaNYL citrate (PF) 50 mcg/mL injection 25-250 mcg 25-250 mcg, intravenous, ONCE PRN, 1 dose, Starting on Thu07/31/15 at 0813, Until Thu07/31/15 at 0942, Pain, Routine, Intraprocedure Given 07/31/2015 9:42 EDT 100 mcg midazolam (PF) (VERSED) 1 mg/mL injection 0.5-10 mg 0.5-10 mg, intravenous, ONCE PRN, 1 dose, Starting on Thu07/31/15 at 0813, Until Thu07/31/15 at 0941, Sedation, Routine, Intraprocedure Given 07/31/2015 9:41 EDT 3 mg sodium chloride 0.9 % (NS) infusion 50 mL/hr, intravenous, CONTINUOUS, Starting on Thu07/31/15 at 0715, Until Thu08/01/15 at 0051, Routine, Preprocedure New Bag 07/31/2015 7:24 EDT 50 mL/hr 50 mL/hr documented in this encounter Active and Recently Administered Medications Times are shown in EDT. Continuous Medication Order 07/29/2015 07/30/2015 07/31/2015 sodium chloride 0.9 % (NS) infusion (CANCELED) 50 mL/hr, intravenous, CONTINUOUS, Starting on Thu07/31/15 at 0715, Until Thu08/01/15 at 0051, Routine, Preprocedure 0724 (New Bag - Prov ider: Marie Kirby RN) PRN Medication Order 07/29/2015 07/30/2015 07/31/2015 fentaNYL citrate (PF) 50 mcg/mL injection 25-250 mcg (COMPLETED) 25-250 mcg, intravenous, ONCE PRN, 1 dose, Starting on Thu07/31/15 at 0813, Until Thu07/31/15 at 0942, Pain, Routine, Intraprocedure 0942 (Given - Provid er: Erin Hamilton RN - Comment: given in divided doses during procedure) midazolam (PF) (VERSED) 1 mg/mL injection 0.5-10 mg (COMPLETED) 0.5-10 mg, intravenous, ONCE PRN, 1 dose, Starting on Thu07/31/15 at 0813, Until Thu07/31/15 at 0941, Sedation, Routine, Intraprocedure 0941 (Given - Provid er: Erin Hamilton RN - Comment: given in divided doses during procedure) documented in this encounter Orders Medications Ordered That Allan ht Not Have Been Administered Count Last Ordered Date First Ordered Date acetaminophen (TYLENOL) suppository 650 mg 1 07/31/2015 acetaminophen (TYLENOL) tablet 650 mg 1 sodium chloride 0.9 % (NS) infusion 1 07/31 Nursing Count Last Ordered Date First Orde red Date BEDREST 1 07/31/2015 ELEVATE HEAD OF BED 1 07/31/2015 INSERT PERIPHERAL IV 1 07/31/2015 NURSING COMMUNICATION 1 07/31/2015 OXYGEN THERAPY 1 07/31/2015 Transfer Count Last Ordered Date First Orde red Date NOTIFY PPS OF DISCHARGE COMPLETE 1 07/31/20 15 Discharge Count Last Ordered Date First Orde red Date DISCHARGE PATIENT 1 07/31/2015 documented in this encounter Care Teams Production Planner Relationship Specialty Start Date End Date Cooper Mojica MD [address] [place] [id number] PCP - General 03/27/10 05/13/17 documented as of this encounter
--- OUTSIDE RECORDS SUMMARY | 2024-08-07 13:41 | XMS_ITS | Encounter Summary ---
Author Organization [facility] Address [address] [place] [address] Care Team Providers Care Wall Scraper Name Role Phone Cooper Mojica MD Primary Care Provider [phone] Encounter Details Date Type Department Care Team (Latest Contact Info) Description 10/28/2012 14:07 EST - 10/28/2012 14:08 [facility] Hospital Encounter [address] [address] Riley Guardado MD Discharge Disposition: Home or Self Care Social [...] EDT Appointment [facility] MRI [address] [place] [address] 08/16/2024 14:00 EDT EMILIA [facility] OBGYN Ultrasound [address] [place] [phone] 08/29/2024 14:00 EDT Office Visit [facility] OBGYN [address] [place] [phone] Ness Vilchis MD [address] [place], [place] [address], [address] [place] [phone] 08/31/2024 16:00 EDT Office Visit [facility] Orthopedics & Sport Medicine [address], [address] [place], [place] [phone] Reema Peoples PA-C [address] [facility] [address] [place], [place] [phone] 09/01/2024 9:30 EDT Office Visit [facility] Rheumatology [address] [place] [phone] Lin Grider MD [address] [facility] [address] [place] [phone] 11/08/2024 14:00 EST Office Visit [facility] Adult Hematology & Oncology [facility] [place] [address] Luz Maria Peter NP 130 [facility], [facility] [address] [place] [address] 11/22/2024 10:15 EST Office Visit [facility] Family Medicine - [place] [address] [place] [address] Clint Miramontes MD [address] [place] [phone] documented as of this encounter Visit Diagnoses Not on filedocumented in this encounter Care Teams Wall Scraper Relationship Specialty Start Date End Date Cooper Mojica MD [address] [place] [address] PCP - General 03/27/10 05/13/17 documented as of this encounter
--- OUTSIDE RECORDS SUMMARY | 2024-08-07 13:41 | XMS_ITS | Encounter Summary ---
Author Organization [facility] Address [address] [place] [address] Care Team Providers Care Hydraulic Billet Maker Name Role Phone Cooper Mojica MD Primary Care Provider [phone] Reason for Referral * Radiology Services (Other (Specify in Question)) - Closed Specialty Diagnoses / Procedures Referred By Annia gan Referred To Contact Diagnoses Cerebral aneurysm, nonruptured Procedures IR CAROTID CEREBRAL BILATERAL Selam Becker PA-C [address] [place] [phone] Referral ID Status Reason Start Date Expiration Date Visits Re quested Visits Authorized [id number] Closed 06/08/2014 1 1 Reason for Visit * Reason Comments Aneurysm s/p coil embolizatio n unruptured right PCOM aneurysm 06/2010 Encounter Details Date Type Department Care Team (Late st Contact Info) Description 06/08/2014 13:30 EDT Office Visit [facility] Interventional Radiology - [address] [phone] Selam Becker PA-C [address] [place] [phone] Cerebral aneurysm, nonruptured (Primary Dx) Discharge Disposition: [...] Sign Reading Time Taken Comments Blood Pressure 109/53 06/08/2014 1348 EDT Pulse 74 06/08/2014 1348 EDT Temperature - - Respiratory Rate 12 06/08/2014 1348 EDT Oxygen Saturation - - Inhaled Oxygen Concentration - - Weight 49 kg (108 lb) 06/08/2014 1348 EDT Height 149.9 cm (4' 11) 06/08/2014 1348 EDT Body Mass Index 21.81 06/08/2014 1348 EDT documented in this encounter Discharge Diagnoses Diagnosis 437.3 NONRUPTURED CEREBRAL ANEURYSM[ICD-9-CM] documented in this encounter Patient Instructions * Patient Instructions* Selam Hernandez PA - 06/08/2014 13:45 EDT Your aneurysm looks stable on MRA today. The small amount of residual flow at the neck of the aneurysm has not changed. No new aneurysms are seen. We would like you to undergo a conventional angiogram next year, as it will be your fifth year of follow up. BARNEY Lopez ?? You will receive a reminder appointment letter in the mail approximately 3 months before you aredue for your visit. documented in this encounter Discharge Disposition Disposition Code Departure Means Destination Auto Discharge documented in this encounter Progress Notes * Selam Hernandez PA - 06/08/2014 1423 EDT Subjective: Patient ID: Mel Ramirez is a 64 y.o. female. Chief Complaint Patient presents with ??? Aneurysm s/p coil embolization unruptured right PCOM aneurysm 06/2010 HPI I had the pleasure seeing Mel Ramirez today in the Neurointerventional Radiology Clinic. 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 We are monitoring her with serial imaging. She is doing well. She takes aspirin 325 mg daily without difficulty. She travel to [place] over thewin and is looking forward to a school trip to [place] this year. She [facility] [place]'s [place] in January. Her energy his great and she is very happy. She is still working. Patient Active Problem List Diagnosis ??? Cerebral aneurysm, nonruptured ??? Hyperlipidemia ??? Anxiety ??? 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 Aneurysm ??? Hypercholesteremia ??? Psychiatric problem anxiety ??? Cancer lymphoma-marry marginal ??? 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 Inguinal lymphadenopathy Past Surgical History Procedure Laterality Date ??? [...] Outpatient Prescriptions Marked as Taking for the 06/08/14 encounter (Office Visit) with Selam Hernandez PA Medication Sig Dispense Refill ??? aspirin 325 mg tablet Take 1 Tab by mouth daily. ??? cholecalciferol, Vitamin D3, (VITAMIN D) 1,000 unit tablet Take 1,000 Units by mouth daily. ??? LORAZEPAM ORAL Take 1 mg by mouth at bedtime. ??? lovastatin (MEVACOR) 20 mg tablet Take 20 mg by mouth at bedtime. ??? MULTIVITAMINS (MULTIVITAMIN ORAL) Take 1 Tab by mouth daily. No Facility-Administered Medications for the 06/08/14 encounter (Office Visit) with Amrit Hernandez PA. Allergies Allergen Reactions ??? No Known Drug Allergies ??? Other - See Comments Stings- swollen local reactions ROS - See HPI Objective: BP 109/53 Pulse 74 Resp 12 Ht 149.9 cm (59) Wt 48.988 kg (108 lb) BMI 21.8 kg/m2 Physical Exam Mel looks very well today. She is alert, oriented and in no acute distress. Speech is fluent, linear and goal directed. Affect is full, eye contact is good. Cranial nerves II through XII are intact and symmetric. Strength and sensation are intact throughout and she ambulates and she ambulates with a narrow based and stable gait. Imaging: MRA head 06/08/14: Impression: 1. No significant change since previous examination with unchanged appearance of the residual neck of the previously coiled right posterior communicating artery aneurysm. 2. Possible mildinterval atrophy since previous study although the ventricles and sulci are still within normal limits for age. Assessment/Plan: 64-year-old woman who is 4 years s/p coil embolization of an unruptured right PCOM aneurysm. There is still a small amount of residual filling at the neck of the aneurysm, which has been stable sincetreatment. We will have Mel return in one year for conventional cerebral angiography. I spent a total of 20 minutes in face to face time with this patient and 18 minutes of that time was spent in disease review, image review, counseling, treatment planning and coordination of care as described in the progress note. The patient's imaging and plan of care were reviewed with Dr. Cecil Harmon was immediately available for consultation during today's evaluation. BARNEY Lopez CC: Cooper Mojica MD documented in this encounter Plan of Treatment Upcoming Encounters Date Type Department Care Team (Late st Contact Info) Description 08/10/2024 16:00 EDT Appointment [facility] MRI [address] [place] [address] 08/16/2024 14:00 EDT EMILIA [facility] OBGYN Ultrasound [address] [place] [address] 08/29/2024 14:00 EDT Office Visit [facility] OBGYN [address] [place] [address] Ness Vilchis MD [address] [place] [address]A, [address] [place] [address] 08/31/2024 16:00 EDT Office Visit [facility] Orthopedics & Sport Medicine [address], [address] [place] [address] Reema Peoples PA-C [address] [facility] [address] [place], [place] [address] 09/01/2024 9:30 EDT Office Visit [facility] Rheumatology [address] [facility] [place], [place] [phone] Lin Grider MD 130 [facility] [address] [place] [address] 11/08/2024 14:00 EST Office Visit [facility] Adult Hematology & Oncology [address] [place] [address], [place] [address] Luz Maria Peter NP 130 [facility], [facility] [address] [place] [address] 11/22/2024 10:15 EST Office Visit [facility] Family Medicine - [place] [address] [facility], [place] [phone] Clint Miramontes MD [address] [place] [phone] documented as of this encounter Procedures Procedure Name Priority Date/Time Associated Diagnosis Comments IR CAROTID CEREBRAL BILATERAL Routine 07/31/2015 10:00 EDT Cerebral aneurysm, nonruptured documented in this encounter Results * IR CAROTID CEREBRAL BILATERAL (07/31/2015 10:00 EDT) Anatomical Region Laterality Modality Other 07/31/2015 10:0 0 EDT 08/02/2015 16:36 EDT Narrative 08/02/2015 16:36 EDT Preoperative diagnosis: Right posterior communicating artery aneurysm ?? Postoperative Diagnosis: Same Surgeons: Dr. Cecil Harmon Putty Patcher: RT Oswaldo Anesthesia: Local with sedation Interventional procedure: None Catheterization of the following vessels: 1. Right common carotid artery 2. Right internal carotid artery 3. Left common carotid artery 4. Left internal carotid artery 5. Left vertebral artery Angiographic interpretation of the following images: 1. Bilateral cervical carotid artery angiograms 2. Bilateral cerebral carotid artery angiograms 3. Left vertebral artery angiogram Hemostasis: Mynx closure device Indications: The patient is a 65-year-old female who previously underwent endovascular coiling of an unruptured right posterior communicating artery aneurysm. She presents today for followup examination to assess the stability of treatment. Procedure in detail and findings: The risks and benefits of the procedure were explained to the patient and informed consent was obtained and signed. Prior to the procedure, a timeout was completed verifying correct patient, date of , procedure, site, positioning and special equipment as applicable. The patient was brought to the neurointerventional suite and placed in the supine position upon the angiography table. Both groins were prepped and draped in sterile fashion. Lidocaine 1% was used for local anesthesia. A 19-gauge singlewall puncture needle was used to access the right common femoral artery. The needle was exchanged over an introducer wire for a 5 Romansh sheath. Heparinized saline infusion was administered through the sheath and the catheter used during this procedure. A 5 Romansh Terumo angled glide catheter was advanced over a Glidewire into the right common carotid artery. Right common carotid artery cervical angiogram was performed in frontal and lateral projections. The angiogram shows no significant stenosis at the origin of the internal carotid artery. The external carotid branches are normal in their cervical course. The catheter was advanced under fluoroscopic guidance into the right internal carotid artery and an angiogram was performed in frontal, lateral and oblique projections. Right internal carotid artery cerebral angiogram shows satisfactory opacification of the internal carotid artery as well as the anterior and middle cerebral arteries. Coil mass is again seen in the posterior communicating artery aneurysm. The posterior communicating artery remains patent. There is no significant stenosis of the parent vessels. No significant aneurysm recurrence is seen. The catheter was advanced into the left common carotid artery using fluoroscopic guidance and a cervical angiogram was performed in frontal and lateral projections. Left cervical carotid artery angiogram shows a normal origin of the internal carotid artery. The external carotid artery branches are normal in their cervical course. ?? The catheter was advanced under fluoroscopic guidance into the left internal carotid artery and a cerebral angiogram was performed in frontal and lateral projections. ??Left internal carotid artery cerebral angiogram shows satisfactory opacification of the internal carotid artery as well as the anterior and middle cerebral arteries. The catheter was now advanced into the left vertebral artery and a left vertebral artery angiogram was performed in frontal and lateral projections. Left vertebral artery angiogram shows satisfactory opacification of the left vertebral artery as well as the basilar and left posterior cerebral arteries. The right P1 segment is hypoplastic with only faint opacification of the right posterior cerebral artery territory. The left posterior inferior cerebellar artery, bilateral anterior/inferior and bilateral superior cerebellar arteries are normally visualized. The catheter was removed. After thorough review of the images, the sheath was removed and a Mynx closure device was used to achieve hemostasis. Dr. Cecil Harmon was present during the entire procedure and the interpretation of images. Impression: The patient has previously undergone coil embolization of a right posterior communicating artery aneurysm. There is no significant residual aneurysm. No new aneurysm is identified. Plan: Followup with our service as needed. Procedure Note Cecil Harmon MD - 08/02/2015 Preoperative diagnosis: Right posterior communicating artery aneurysm Postoperative Diagnosis: Same Surgeons: Dr. Cecil Harmon Putty Patcher: RT Oswaldo Anesthesia: Local with sedation Interventional procedure: None Catheterization of the following vessels: 1. Right common carotid artery 2. Right internal carotid artery 3. Left common carotid artery 4. Left internal carotid artery 5. Left vertebral artery Angiographic interpretation of the following images: 1. Bilateral cervical carotid artery angiograms 2. Bilateral cerebral carotid artery angiograms 3. Left vertebral artery angiogram Hemostasis: Mynx closure device Indications: The patient is a 65-year-old female who previously underwent endovascular coiling of an unruptured right posterior communicating artery aneurysm. She presents today for followup examination to assess the stability of treatment. Procedure in detail and findings: The risks and benefits of the procedure were explained to the patient and informed consent was obtained and signed. Prior to the procedure, a timeout was completed verifying correct patient, date of , procedure, site, positioning and special equipment as applicable. The patient was brought to the neurointerventional suite and placed in the supine position upon the angiography table. Both groins were prepped and draped in sterile fashion. Lidocaine 1% was used for local anesthesia. A 19-gauge singlewall puncture needle was used to access the right common femoral artery. The needle was exchanged over an introducer wire for a 5 Romansh sheath. Heparinized saline infusion was administered through the sheath and the catheter used during this procedure. A 5 Romansh Terumo angled glide catheter was advanced over a Glidewire into the right common carotid artery. Right common carotid artery cervical angiogram was performed in frontal and lateral projections. The angiogram shows no significant stenosis at the origin of the internal carotid artery. The external carotid branches are normal in their cervical course. The catheter was advanced under fluoroscopic guidance into the right internal carotid artery and an angiogram was performed in frontal, lateral and oblique projections. Right internal carotid artery cerebral angiogram shows satisfactory opacification of the internal carotid artery as well as the anterior and middle cerebral arteries. Coil mass is again seen in the posterior communicating artery aneurysm. The posterior communicating artery remains patent. There is no significant stenosis of the parent vessels. No significant aneurysm recurrence is seen. The catheter was advanced into the left common carotid artery using fluoroscopic guidance and a cervical angiogram was performed in frontal and lateral projections. Left cervical carotid artery angiogram shows a normal origin of the internal carotid artery. The external carotid artery branches are normal in their cervical course. The catheter was advanced under fluoroscopic guidance into the left internal carotid artery and a cerebral angiogram was performed in frontal and lateral projections. Left internal carotid artery cerebral angiogram shows satisfactory opacification of the internal carotid artery as well as the anterior and middle cerebral arteries. The catheter was now advanced into the left vertebral artery and a left vertebral artery angiogram was performed in frontal and lateral projections. Left vertebral artery angiogram shows satisfactory opacification of the left vertebral artery as well as the basilar and left posterior cerebral arteries. The right P1 segment is hypoplastic with only faint opacification of the right posterior cerebral artery territory. The left posterior inferior cerebellar artery, bilateral anterior/inferior and bilateral superior cerebellar arteries are normally visualized. The catheter was removed. After thorough review of the images, the sheath was removed and a Mynx closure device was used to achieve hemostasis. Dr. Cecil Harmon was present during the entire procedure and the interpretation of images. Impression: The patient has previously undergone coil embolization of a right posterior communicating artery aneurysm. There is no significant residual aneurysm. No new aneurysm is identified. Plan: Followup with our service as needed. Authorizing Provider Yadira Type Selam THOMPSON IR ORDERABLES documented in this encounter Visit Diagnoses Diagnosis Cerebral aneurysm, nonruptured- Primary documented in this encounter Discontinued Medications Medication Sig Discontinue Reason Start Date End Da te PRAVASTATIN SODIUM (PRAVASTATIN ORAL) Take 20 mg by mouth daily. Discontinued by another clinician 06/08/2014 documented as of this encounter Historical Medications * This list may reflect changes made after this encounter. Medication Sig Dispensed Refills Start Date End Date lovastatin (MEVACOR) 20 mg tablet Take 80 mg by mouth at bedtime. 09/19/2019 added in this encounter Care Teams Hydraulic Billet Maker Relationship Specialty Start Date End Date Cooper Mojica MD [address] [place] [address] PCP - General 03/27/10 05/13/17 documented as of this encounter
--- OUTSIDE RECORDS SUMMARY | 2024-08-07 13:41 | XMS_ITS | Encounter Summary ---
Author Organization [facility] Address [address] [place] [address] Care Team Providers Care Lockstitch Shoulder Joiner Name Role Phone Cooper Mojica MD Primary Care Provider [phone] Reason for Visit * Reason Onset Date Comments Appointment Related 05/11/2014 Encounter Details Date Type Department Care Team (Late st Contact Info) Description 05/11/2014 Telephone [facility] Interventional Radiology - [facility] [address] [place] [address] Selam Becker PA-C [address] [place] [address], [address] [place] [phone] Appointment Related Social History Tobacco Use Types [...] on file documented as of this encounter Miscellaneous Notes * Telephone Encounter - Maru De Anda - 05/11/2014 0934 EDT Left message on voice mail that we had to move her office visit on 06/08 from 1:00 to 1:30 pm documented in this encounter Plan of Treatment Upcoming Encounters Date Type Department Care Team (Late st Contact Info) Description 08/10/2024 16:[address] [facility] MRI [address] [place], [place] [phone] 08/16/2024 14:[address] [facility] OBGYN Ultrasound [address] [place] [address] 08/29/2024 14:[address] [facility] OBGYN [address] [place], [place] [phone] Ness Vilchis MD [address] [place] [address], [address] [place] [address] 08/31/2024 16:[address] [facility] Orthopedics & Sport Medicine [address], [address] [place], [place] [phone] Reema Peoples PA-C [address] [facility] [address] [place], [place] [phone] 09/01/2024 9:[address] [facility] Rheumatology [address] [place] [phone] Lin Grider MD [address] [place] [address] [address] [place] [address] 11/08/2024 14:[address] [facility] Adult Hematology & Oncology [address] [place] [address], [place] [address] Luz Maria Peter NP [address] [place] [address] [address] [place] [address] 11/22/2024 10:[address] [facility] Family Medicine - [address] [address] Clint Miramontes MD [address] [place] [phone] documented as of this encounter Visit Diagnoses Not on filedocumented in this encounter Care Teams Lockstitch Shoulder Joiner Relationship Specialty Start Date End Date Cooper Mojica MD [address] [place] [phone] PCP - General 03/27/10 05/13/17 documented as of this encounter
--- OUTSIDE RECORDS SUMMARY | 2024-08-07 13:41 | XMS_ITS | Encounter Summary ---
Author Organization [facility] Address [address] [place] [address] Care Team Providers Care Ceramic Coater Name Role Phone [place] Mojica MD Primary Care Provider [phone] Edison Miramontes DO Primary Care Provider [phone] Clint Miramontes MD Primary Care Provider [phone] Encounter Details Date Type Department Care Team (Late st Contact Info) Description 10/21/2012 Historical Results Only [facility] - Main [place] [address] [place] [address] Hannah Hogue APRN [address] [place] [address] [phone] Social History Tobacco Use Types Packs/Day Years [...] Description 08/10/2024 16:00 EDT Appointment [facility] MRI [address] [place] [address] 08/16/2024 14:00 EDT EMILIA [facility] OBGYN Ultrasound [address] [place] [address] 08/29/2024 14:00 EDT Office Visit [facility] OBGYN [address] [place] [address] Ness Vilchis MD 130 [facility], [address] [place] [address] 08/31/2024 16:00 EDT Office Visit [facility] Orthopedics & Sport Medicine [address] [place] [address] Reema Peoples PAToñoC [address] [facility] [address] [place], [place] [phone] 09/01/2024 9:30 EDT Office Visit [facility] Rheumatology [address] [place], [place] [phone] Lin Grider MD [address] [place] [address] [address] [place] [address] 11/08/2024 14:00 EST Office Visit [facility] Adult Hematology & Oncology [address] [place] [phone] Luz Maria Peter, GABRIEL [address] [facility] [address] [place] [address] 11/22/2024 10:15 EST Office Visit [facility] Family Medicine - [place] [address] [place], [place] [phone] Clint Miramontes MD [address] [place] [phone] documented as of this encounter Procedures Procedure Name Priority Date/Time Associated Diagnosis Comments SURGICAL PATHOLOGY Routine 10/21/2012 documented in this encounter Results * SURGICAL PATHOLOGY (10/21/2012) 10/21/2012 10/21/2012 14: 46 EST Narrative [facility] - 10/29/2012 14:43 EST 11/03/[address] DORMAN OFFICE FOR REVIEW 12/09/12 ----- ------- Name: DEANA COY ?: 48 ?Age/Sex: 69/F ?Unit#: [id number] ? Loc: MHC ? Status: REG POV ?? Reg Date: 10/21/12 ? Pt.Phone Number: ? ----- ------- Specimen: [id number] ? STATUS: SOUT ?Spec Date:10/21/12 ? Physician Copies: ?Hannah Hogue Tissues: A ?? Skin, other than cyst (RIGHT ANTERIOR THIGH) ? [place] Mojica MD ? CPT: 76275 ?? Units: ??1 ?FINAL DIAGNOSIS ? Skin of thigh, right anterior, punch biopsy; ? -- Superficial perivascular dermatitis with spongiosis and interface ?inflammation. ??See ??comment. ----- ------- ?COMMENT ?The biopsy is notable for a superficial perivascular [...] features suggestive of trauma (ecchymosis or hematoma). ? GROSS DESCRIPTION ? Received in formalin and labeled anterior thigh skin biopsy is a tissue ? fragment around 4 mm in diameter, bisected, e.s. ??BT ?? PREOP DX/CLINICAL HISTORY ? of vasculitis/ ? of lymphocytic. ? Rash since the summer, not really itchy or irritating, has used ?cortisone cream off and on extends from inner thigh to ankle, no ?f/s/ch/n/v/sob/cp. ?Tobacco: ? Tobacco Assessment (STRUCTURED) ??Patient Tobacco Use: ?Former tobacco user . ?Oncology Problem List: ? 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 (Continued) ----- ------- Specimen: [id number] ? Received: 10/21/124343 ?(Continued) ?? PREOP DX/CLINICAL HISTORY ?(Continued) ?disease with numerous small lymph nodes above and below the ?diaphragm.. ? INTERVAL HISTORY: no tx to date for lymphoma. ?General: ? intermittent occas pro cough past 3 mos, distant hx ?smoking, some granuloma's per chest CT 01/11, hx lymphoma:No ?pathologically enlarged lymph nodes are identifiedwithin the ?axilla, mediastinum or pulmonary shalonda. ?Current Medications ?albuterol CFC free 90 mcg/inh aerosol with adapter 2 puff(s) ?every 4 hours as needed ?Butalbital Compound 325 mg-50 mg-40 mg tablet 1-2 tab(s) prn very ?rare ?multivitamin Multiple Vitamins capsule 1 cap(s) once a day ?aspirin 325 mg enteric coated tablet 1 tab(s) once a day ?Calcium 600+D 600 mg-200 units tablet 2 tabs daily ?Vitamin D3 1000 intl units tablet 2 tab(s) once a day ?Crestor 10 mg tablet 1 tab(s) once a day (at bedtime) ?lorazepam 1 mg tablet 1 tab(s) [facility] Signed ____(signature on file)____ Riley Guardado M.D. 10/29/12 ?? By the signature above, the attending physician certifies that he/she has personally conducted a gross and/or microscopic examination of the described specimens and rendered or confirmed the above diagnosis. Test Performed by [facility], [address] [address] Resources Representative: Maddi Zacarias MD PHD ----- ------- Hannah Danii Mykel [facility] PATHOLOGY [facility] documented in this encounter Visit Diagnoses Not on filedocumented in this encounter Care Teams Ceramic Coater Relationship Specialty Start Date End Date [place] Mojica MD [address] [place], [place] [address] PCP - General 03/27/10 05/13/17 Edison Miramontes DO [address] [place], [place] 872072 PCP - General 05/14/17 08/22/19 [place] Miramontes MD [address] [place] [address] [phone] PCP - General 08/23/19 documented as of this encounter
--- OUTSIDE RECORDS SUMMARY | 2024-08-07 13:41 | XMS_ITS | Encounter Summary ---
Author Organization [facility] Address [address] [place] [address] Care Team Providers Care Network Operations Specialist Name Role Phone [place] Mojica MD Primary Care Provider [phone] Reason for Visit * Reason Onset Date Comments Other 06/05/2010 post procedure Encounter Details Date Type Department Care Team (Late st Contact Info) Description 06/05/2010 Telephone [facility] Interventional Radiology - [facility] [address], [place] [phone] Gita Cano, RN [address] [place], [place] [phone] Other (post procedure) Social History Tobacco Use Types Packs/Day Years [...] encounter Miscellaneous Notes * Telephone Encounter - Gita Cano - 06/05/2010 1245 EDT Interventional Radiology Nurse Initiated Telephone Encounter Note You were recently discharged from the hospital. I am calling to see how you are doing at home. In the hospital, you were treated for: Aneurysm Coiling /Stenting Do you have any new or worsening pain? No. Headache 2/10, taking Tylenol with relief. Are you having any other problems at home? Procedure Site: bruising Yes, dressing changed Yes Is there any medication you are not taking? No Do you have any questions about your medication? No I would like to remind you about your appointment(s) with the following specialists. Yes IRC on June 13 at 11 am I would like to remind you about your appointment(s) for the following tests. Yes MRA Will be scheduled for September 2010 The following warning signs of stroke were reviewed with Ms. Ramirez: ?? Sudden weakness or numbness of the face, arm or leg, especially on one side of the body. Sudden confusion, trouble speaking or understanding. Sudden trouble seeing out of one or both eyes. Sudden trouble walking, dizziness, loss of balance or coordination. Sudden severe headache with no known cause. The following educational barriers were encountered during this conversation: none. Patient voiced understanding the need to call 911 if Shedevelops any of the symptoms mentioned above. She has our contact number to call with questions. Gita Cano RN documented in this encounter Plan of Treatment Upcoming Encounters Date Type Department Care Team (Late st Contact Info) Description 08/10/2024 16:[address] [facility] MRI [address] [place] [address] 08/16/2024 14:[address] [facility] OBGYN Ultrasound [address] [place] [address] 08/29/2024 14:[address] [facility] OBGYN [address] [place] [phone] Ness Vilchis MD 130 [facility], [address] [place] [address] 08/31/2024 16:[address] [facility] Orthopedics & Sport Medicine [address], [address] [place] [address] Reema Peoples PA-C [address] [facility] [address] [place], [place] [phone] 09/01/2024 9:[address] [facility] Rheumatology [address] [place], [place] [phone] Lin Grider MD 130 [facility] [address] [address] [place] [address] 11/08/2024 14:[address] [facility] Adult Hematology & Oncology [address] [place] [address], [place] [address] Luz Maria Peter NP 130 [facility], [facility] [address] [place] [address] 11/22/2024 10:[address] [facility] Family Medicine - [place] [address] [place] [address] [place] Miramontes MD [address] [place] [phone] documented as of this encounter Procedures Procedure Name Priority Date/Time Associated Diagnosis Comments MR ANGIO HEAD WO CONTRAST 09/12/2010 8:49 EST documented in this encounter Results * MR ANGIO HEAD WO CONTRAST (09/12/2010 8:49 EST) Anatomical Region Laterality Modality Other 09/12/2010 8:49 EST Narrative 09/18/2010 15:34 EST Non Reportable Exam Procedure Note 09/18/2010 Non Reportable Exam Selam Becker PA-C [facility] MRI ORDERABLE S documented in this encounter Visit Diagnoses Diagnosis Cerebral aneurysm, nonruptured- Primary documented in this encounter Care Teams Network Operations Specialist Relationship Specialty Start Date End Date [place] Mojica MD [address] [place] [address] PCP - General 03/27/10 05/13/17 documented as of this encounter
--- OUTSIDE RECORDS SUMMARY | 2024-08-07 13:41 | XMS_ITS | Encounter Summary ---
Author Organization [facility] Address [address] [place] [address] Care Team Providers Care Rent And Housing Investigator Name Role Phone [place] Mojica MD Primary Care Provider [phone] Encounter Details Date Type Department Care Team (Late st Contact Info) Description 09/12/2010 7:40 EST - 09/12/2010 23:[address] [facility] [address] [place] [address] Selam Becker PA-C [address] [place] [address], [address] [place] [phone] Discharge Disposition: Home or Self Care Social [...] Code Departure Means Destination Home or Self Longterm documented in this encounter Plan of Treatment Upcoming Encounters Date Type Department Care Team (Late st Contact Info) Description 08/10/2024 16:00 EDT Appointment [facility] MRI [address] [place], [place] [address] 08/16/2024 14:00 EDT EMILIA [facility] OBGYN Ultrasound [address] [place] [address] 08/29/2024 14:00 EDT Office Visit [facility] OBGYN [address] [place] [address] [phone] Ness Vilchis MD [address] [place] [address], [address] [place] [phone] 08/31/2024 16:00 EDT Office Visit [facility] Orthopedics & Sport Medicine [address], [address] [place], [place] [phone] Reema Peoples PA-C 13[address] [facility] [address] [place], [place] [phone] 09/01/2024 9:30 EDT Office Visit [facility] Rheumatology [address] [place], [place] [phone] Lin Grider MD [address] [place] [address] [address] [place] [phone] 11/08/2024 14:00 EST Office Visit [facility] Adult Hematology & Oncology [facility] [place] [address] Luz Maria Peter NP 130 [facility] [address] [place] [phone] 11/22/2024 10:15 EST Office Visit [facility] Family Medicine - [place] [address] [place] [address] [phone] [place] Miramontes MD [address] [place] [phone] documented as of this encounter Visit Diagnoses Not on filedocumented in this encounter Care Teams Rent And Housing Investigator Relationship Specialty Start Date End Date [place] Mojica MD [address] [place] [phone] PCP - General 03/27/10 05/13/17 documented as of this encounter
--- OUTSIDE RECORDS SUMMARY | 2024-08-07 13:41 | XMS_ITS | Encounter Summary ---
Author Organization [facility] Address [address] [place] [address] Care Team Providers Care Hopper Attendant Name Role Phone [place] Mojica MD Primary Care Provider [phone] Encounter Details Date Type Department Care Team (Latest Contact Info) Description 06/08/2014 11:39 EDT - 06/08/2014 23:59 EDT Hospital Encounter [facility] [address] [place] [address] Jeferson Alvares, DO [address] [place] [address] Discharge Disposition: Auto Discharge Social [...] on file documented as of this encounter Discharge Diagnoses Diagnosis 437.3 NONRUPTURED CEREBRAL ANEURYSM[ICD-9-CM] documented in this encounter Medications at Time [...] Contact Info) Description 08/10/2024 16:00 EDT Appointment [facility] MRI [address] [place], [place] [address] 08/16/2024 14:00 EDT EMILIA [facility] OBGYN Ultrasound [address] [place] [address] 08/29/2024 14:00 EDT Office Visit [facility] OBGYN [address] [place], [place] [phone] Ness Vilchis MD 130 [facility] [address], [address] [place] [phone] 08/31/2024 16:00 EDT Office Visit [facility] Orthopedics & Sport Medicine [address], [address] [place], [place] [phone] Reema Peoples PA-C 1311 [facility] [address] [place], [place] [phone] 09/01/2024 9:30 EDT Office Visit [facility] Rheumatology [address] [place] [address] Lin Grider MD 130 [facility] [address] [place] [address] 11/08/2024 14:00 EST Office Visit [facility] Adult Hematology & Oncology [facility] [place] [address] Luz Maria Peter NP 130 [facility], [facility] [address] [place] [address] 11/22/2024 10:15 EST Office Visit [facility] Family Medicine - [place] [address] [place], [place] [phone] [place] Miramontes MD [address] [place] [phone] documented as of this encounter Visit Diagnoses Not on filedocumented in this encounter Care Teams Hopper Attendant Relationship Specialty Start Date End Date [place] Mojica MD [address] [place] [address] PCP - General 03/27/10 05/13/17 documented as of this encounter
--- OUTSIDE RECORDS SUMMARY | 2024-08-07 13:41 | XMS_ITS | Encounter Summary ---
Author Organization [facility] Address [address] [place] [address] Care Team Providers Care Conference Services Manager Name Role Phone [place] Mojica MD Primary Care Provider Edison Miramontes DO Primary Care Provider [phone] Clint Miramontes MD Primary Care Provider [phone] Reason for Visit * Reason Comments Advice Only Encounter Details Date Type Department Care Team (Late st Contact Info) Description 06/03/2010 Documentation Visit [facility] Interventional Radiology - [facility] [address] [place], [place] [phone] Cecil Harmon MD 111 [facility] 1 [place] [address] Social History Tobacco Use Types [...] Description 08/10/2024 16:00 EDT Appointment [facility] [address] [place], [place] [phone] 08/16/2024 14:00 EDT EMILIA [facility] OBGYN Ultrasound [address] [place] [address] 08/29/2024 14:00 EDT Office Visit [facility] OBGYN [address] [place] [address] Ness Vilchis MD 130 [facility], [address] [place] [phone] 08/31/2024 16:00 EDT Office Visit [facility] Orthopedics & Sport Medicine [address], [address] [place] [address] Reema Peoples PA-C 1311 [facility] [address] [place], [place] [phone] 09/01/2024 9:30 EDT Office Visit [facility] Rheumatology [address] [place], [place] [phone] Lin Grider MD [address] [place] [address] [address] [place] [address] 11/08/2024 14:00 EST Office Visit [facility] Adult Hematology & Oncology [address] [place] [phone] Luz Maria Peter NP [address] [place] [address] [address] [place] [address] 11/22/2024 10:15 EST Office Visit [facility] Family Medicine - [place] [address] [place], [place] [phone] [place] Miramontes MD [address] [place] [phone] documented as of this encounter Visit Diagnoses Not on filedocumented in this encounter Care Teams Conference Services Manager Relationship Specialty Start Date End Date [place] Mojica MD [address] [place] [address] PCP - General 03/27/10 05/13/17 Edison Miramontes DO [address] [place] [address] PCP - General 05/14/17 08/22/19 [place] Miramontes MD [address] [place] [phone] PCP - General 08/23/19 documented as of this encounter
--- OUTSIDE RECORDS SUMMARY | 2024-08-07 13:41 | XMS_ITS | Encounter Summary ---
Author Organization [facility] Address [address] [place] [address] Care Team Providers Care Commodities Broker Name Role Phone [place] Mojica MD Primary Care Provider [phone] Encounter Details Date Type Department Care Team (Latest Contact Info) Description 10/28/2013 12:47 EST - 10/28/2013 23:59 EST Hospital Encounter [facility] [address] [place] [address] Unknown, Provider, Discharge Disposition: Home or Self [...] Code Departure Means Destination Home or Self Snf documented in this encounter Plan of Treatment Upcoming Encounters Date Type Department Care Team (Late st Contact Info) Description 08/10/2024 16:00 EDT Appointment [facility] MRI [address] [place], [place] [address] 08/16/2024 14:00 EDT EMILIA [facility] OBGYN Ultrasound [address] [place] [address] 08/29/2024 14:00 EDT Office Visit [facility] OBGYN [address] [place] [phone] Ness Vilchis MD [address] [place] [address], [address] [place] [phone] 08/31/2024 16:00 EDT Office Visit [facility] Orthopedics & Sport Medicine [address], [address] [place], [place] [phone] Reema Peoples PA-C 1311 [facility] [address] [place], [place] [phone] 09/01/2024 9:30 EDT Office Visit [facility] Rheumatology [address] [place] [phone] Lin Grider MD [address] [place] [address] [address] [place] [phone] 11/08/2024 14:00 EST Office Visit [facility] Adult Hematology & Oncology [facility] [place] [address] Luz Maria Peter NP 130 [facility] [address] [place] [phone] 11/22/2024 10:15 EST Office Visit [facility] Family Medicine - [place] [address] [place] [address] [place] Miramontes MD [address] [place] [phone] documented as of this encounter Visit Diagnoses Not on filedocumented in this encounter Care Teams Commodities Broker Relationship Specialty Start Date End Date [place] Mojica MD [address] [place] [address] [phone] PCP - General 03/27/10 05/13/17 documented as of this encounter
--- OUTSIDE RECORDS SUMMARY | 2024-08-07 13:41 | XMS_ITS | Encounter Summary ---
Author Organization [facility] Address [address] [place] [address] Care Team Providers Care Parts Designer Name Role Phone Cooper Mojica MD Primary Care Provider [phone] Reason for Visit * Reason Comments Follow-up Encounter Details Date Type Department Care Team (Late st Contact Info) Description 09/12/2010 9:30 EST Office Visit [facility] Interventional Radiology - [address] [address] Selam Becker PA-C [address] [place] [address], [address] [place] [address] Cerebral aneurysm, nonruptured (Primary Dx) Social History Tobacco Use Types [...] Sign Reading Time Taken Comments Blood Pressure 137/64 09/12/2010 0941 EST Pulse 65 09/12/2010 0941 EST Temperature - - Respiratory Rate 16 09/12/2010 0941 EST Oxygen Saturation - - Inhaled Oxygen Concentration - - Weight 52.6 kg (116 lb) 09/12/2010 0941 EST Height 149.9 cm (4' 11) 09/12/2010 0941 EST Body Mass Index 23.43 09/12/2010 0941 EST documented in this encounter Patient Instructions * Patient Instructions* Brionna Thacker - 09/12/2010 10:37 EST Patient is scheduled for tentatively MRA on December 12, 2010 office at 9:30 documented in this encounter Progress Notes * Selam Becker PA - 09/24/2010 1015 EST INTERVENTIONAL RADIOLOGY CLINIC PROGRESS/FOLLOWUP NOTE - 09/12/[address] Mojica: I had the pleasure of seeing Mel Ramirez today in the Neurointerventional Radiology Clinic in followup to 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 Mel is doing great. 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 She is planning a trip to [place] in December and is overall just feeling that life is going well. 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 Mel is tolerating her aspirin 325 mg without any GI symptoms or bleeding issues. Additionally, she is currently taking Crestor 10 mg nightly, a multivitamin daily and lorazepam 1 mg at bedtime as needed. On exam today, blood pressure is 137/64 in the right arm and pulse is 64. The patient is alert and oriented and in no acute distress. She is delightfully interactive, bubbly and vivacious. Speech is fluent, linear and goal directed. Cranial nerves II through XII are intact and symmetric. Strength is 5/5 in all major muscle groups. Sensation is grossly intact. The patient ambulates independently with a narrow-based and stable gait. Imaging: MRA of the head was performed just prior to today's visit and the images reviewed by Dr Cecil Harmon. It reveals a stable coil mass without evidence of residual flow. Impression/Recommendation: 60-year-old woman now 3 months status post elective coil embolization ofan unruptured right PCOM aneurysm. The patient is doing remarkably well. I have asked her to continue taking her aspirin daily. We will arrange for her to return in 3 months for MRA of the head and office visit. Beyond that, we will plan to see her in 06/2011 for conventional diagnostic catheter angiogram. Mel has our contact information should she have any questions or concerns in the interim. It is a pleasure participating in the cerebrovascular care of this wonderful patient. Please do nothesitate to contact us with any questions or concerns. Sincerely, Electronically Signed by BARNEY Lopez 09/24/2010 10:15 Dictated by: BARNEY Lopez - BARNEY Lopez A - CJR Job ID: SM Doc ID: [id number] Ext Doc ID: [id number] cc: MD Clint Vargas MD * Selam Becker PA - 09/13/2010 1452 EST This note has been dictated. #[id number] BARNEY Lopez documented in this encounter Plan of Treatment Upcoming Encounters Date Type Department Care Team (Late st Contact Info) Description 08/10/2024 16:00 EDT Appointment [facility] MRI [address] [place] [address] 08/16/2024 14:00 EDT EMILIA [facility] OBGYN Ultrasound [address] [place] [address] 08/29/2024 14:00 EDT Office Visit [facility] OBGYN [address] [place] [address] Ness Vilchis MD [address] [facility] [place] [phone] 08/31/2024 16:00 EDT Office Visit [facility] Orthopedics & Sport Medicine [address] [place], [place] [id number] Reema Peoples PA-C [address] [facility] [address] [place], [place] [address] 09/01/2024 9:30 EDT Office Visit [facility] Rheumatology [address], [place] [id number] Lin Grider MD [address] [facility] [address] [place] [address] 11/08/2024 14:00 EST Office Visit [facility] Adult Hematology & Oncology [address] [place], [place] [id number] Luz Maria Peter, GABRIEL [address] [facility] [address] [place] [address] 11/22/2024 10:15 EST Office Visit [facility] Family Medicine - [place] [address] [place] [address] Clint Miramontes MD [address] [place] [phone] documented as of this encounter Procedures Procedure Name Priority Date/Time Associated Diagnosis Comments MR ANGIO HEAD WO CONTRAST 12/05/2010 8:40 EST documented in this encounter Results * MR ANGIO HEAD WO CONTRAST (12/05/2010 8:40 EST) Anatomical Region Laterality Modality Other 12/05/2010 8:40 EST 12/05/2010 9:21 EST Narrative 12/05/2010 9:21 EST MR ANGIO HEAD WO/CONTRAST ??Dec 05, 2010 08:41:09 AM Impression: 1. 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 Comparison: 09/12/2010 Findings: A coil mass is seen in the region of the right posterior communicating artery. Minimal amount of residual flow remains in the posterior communicating artery aneurysm. Findings are unchanged as compared to the previous study. The major arteries of the COW. are patent. No other aneurysms are present. Procedure Note 12/05/2010 MR ANGIO HEAD WO/CONTRAST Dec 05, 2010 08:41:09 AM Impression: 1. 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 Comparison: 09/12/2010 Findings: A coil mass is seen in the region of the right posterior communicating artery. Minimal amount of residual flow remains in the posterior communicating artery aneurysm. Findings are unchanged as compared to the previous study. The major arteries of the COW. are patent. No other aneurysms are present. Selam Becker PA-C IMG MRI ORDERABLE S documented in this encounter Visit Diagnoses Diagnosis Cerebral aneurysm, nonruptured- Primary documented in this encounter Care Teams Parts Designer Relationship Specialty Start Date End Date Cooper Mojica MD [address] [place] [id number] PCP - General 03/27/10 05/13/17 documented as of this encounter
--- OUTSIDE RECORDS SUMMARY | 2024-08-07 13:41 | XMS_ITS | Encounter Summary ---
Author Organization [facility] Address [address] [place] [address] Care Team Providers Care Keg Filler Name Role Phone Cooper Mojica MD Primary Care Provider [phone] Encounter Details Date Type Department Care Team (Late st Contact Info) Description 06/03/2010 6:49 EDT - 06/04/2010 12:10 EDT Hospital Encounter [facility] Medical Intensive Care Unit [address] [place] [address] Cecil Harmon MD [address] [facility] [address] [place] [address] Jeferson Alvares, DO [address] [place] [address] Discharge Disposition: Home or Self Care Social [...] Sign Reading Time Taken Comments Blood Pressure 112/60 06/04/2010 1000 EDT Pulse 91 06/03/20102027 EDT Temperature 36.6 ??C (97.9 ??F) 06/04/2010 0800 EDT Respiratory Rate 18 06/04/2010 1000 EDT Oxygen Saturation 99% 06/04/2010 1000 EDT Inhaled Oxygen Concentration - - Weight 50.8 kg (112 lb) 05/31/2010 0900 EDT Height 149.9 cm (4' 11) 05/31/2010 0900 EDT Body Mass Index 22.62 05/31/2010 09 EDT documented in this encounter Discharge Summaries * Selam Hernandez PA - 06/03/2010 1650 EDT Discharge Summary Chief Complaint/Reason for Admission: Unruptured right PCOM aneurysm Principal/Final Diagnosis: same Principal Procedure: Coil Embolization Date: 06/03/2010 Secondary Procedure: cerebral angiogram Condition at Discharge: Good Assessment at Discharge: Vital signs: Patient Vitals in the past 12 hrs: BP Temp Temp src Pulse Resp SpO2 Height Wt - Scale 06/04/10 0800 - - - - 26 98 % - - 06/04/10 0700 - - - - 16 94 % - - 06/04/10 0600 - - - - 19 98 % - - 06/04/10 0500 - - - - 15 96 % - - 06/04/10 0400 - 36.2 ??C (97.2 ??F) - - 9 96 % - - 06/04/10 0300 - - - - 13 95 % - - 06/04/10 0200 - - - - 0 97 % - - 06/04/10 0100 - - - - 0 95 % - - 06/04/10 0000 - 36.1 ??C (97 ??F) - - 14 96 % - - 06/03/10 2300 - - - - 16 95 % - - 06/03/10 2200 - - - - 22 97 % - - 06/03/10 2100 - - - - 11 97 % - - Hospital Course: This 60 y.o.-year-old patient was referred by Dr Shine for endovascular treatment of a 9 mm right PCOM aneurysm incidentally discovered during a workup for non-Hodgkin's lymphoma. She was admitted to Neurointerventional Radiology on 06/03/2010. Written consent was obtained for the procedure. Intravenous access was established. Álvarez catheter was placed. An arterial line was established by anesthesia and general endotrachial anesthesia was induced. The right PCOM aneurysm was successfully coiled by Nahomi Alvares and Faustino. There were no immediatecomplications. The patient was extubated and transferred to the SICU for overnight neurologic and cardiovascular monitoring. On post-procedure day 1, the Álvarez and A-line were discontinued. The patient ambulated independently, tolerated a regular diet and was able to void spontaneously. Neurologic examination remained unchanged from prior to the procedure. The groin puncture site was without evidence of hematoma, drainage or erythema. The patient was discharged home on PPD #1 with instructions to take aspirin 325 mg daily. We will contact her tomorrow to arrange a 2 week post procedure evaluation and a 3 month MRA of the head. Relevant Studies at Discharge: none Last Lab Results at Discharge: none cc: MD Gene TEIXEIRA MD Discharge Summary Completed: Yes documented in this encounter Discharge Instructions * Discharge Instructions* Selam Hernandez PA - 06/04/2010 8:36 EDT Going Home after a Cerebral Aneurysm Embolization Activities: What Can I Do? Driving - No driving for 1 week. Work - Do not work for 1 week. You may choose to return on a limited basis the second week post-procedure, but let your energy level guide you. Activity/Histopath Tech/Hobbies - How much you can do is determined by your level of discomfort and fatigue. Although there is very little outward evidence that you've had an intervention, your body has gone through some changes. You will need to take things slowly. Gradually work back into your activities; always within the restrictions set by your doctor. Guide your activities by how your body feels. NO LIFTING MORE THAN 15 LBS. Specifically, do not mow your lawn or stack wood for 2 weeks. Showering/Bathing - Do not take baths or emerge in pools, hot tubs or Jacuzzis for 7 days for protection of the puncture site. Showers are OK. After those 7 days, you may resume your normal bathing habits. If you note any signs of bleeding, such as bulging under the skin the size of a golf ball, put direct pressure to the area, call your doctor, and go to the nearest emergency room or call 911 for assistance. Dressing - Leave the sterile dressing on for 24 hours, then shower and clean the area daily. Place a clean Band-Aid over the site each day for 5 days. You may develop a bruise at the puncture site. Restrictions/Limitations - Until seen by your doctor at your follow-up appointment, you should avoid the following: ?? Contact sports Weight lifting Strenuous exercise Limit lifting to no more than 15 pounds Limit the amount of stooping or bending over - Try to squat if you need to pick things up Avoid straining Avoid things that may raise your blood pressure Avoid constipation Diet - Increase the amount of fiber you eat and the water you drink because you DO NOT want to strain to have a bowel movement. You should try to drink about 8 glasses of water a day. If you have questions about foods rich in fiber please consult with your nurse. Constipation - What to Do! Increase your fiber and water intake, as noted above. Walk, be active; exercise as tolerated within restrictions. If you become constipated you can get a variety of stool softeners at the drugstore. Do not use suppositories or enemas. Call the office if unrelieved. Call 911 If You Have - Dizziness Difficulty with speech Severe or increasing headaches Visual Changes Continued nausea and vomiting Increased sleepiness Change in behavior Problems with walking or balance Medications - Take aspirin 325 mg 1 pill by mouth every day Continue your previous medications as prescribed. ?? BENITA, OUR NURSE IN THE INTERVENTIONAL RAD[facility]OLOGY CLINIC WILL CALL YOU TOMORROW TO CHECK IN AND TO SCHEDULE A FOLLOW-UP VISIT FOR 2 WEEKS AFTER YOUR PROCEDURE. WE WILL ALSO ARRANGE A FOLLOW-UP VISIT AND MRA IN 3 MONTHS. ?? IF YOU HAVE ANY QUESTIONS OR CONCERNS, PLEASE CALL THE INTERVENTIONAL RADIOLOGY CLINIC AT [...] documented in this encounter Progress Notes * Inpatient, Physician - 06/06/2010 1319 EDT * Grecia Watson RN - 06/04/2010 1212 EDT 12:10: Rt hand PIV d/c'd. Pt A&Ox3. MAEx4 strongly/equally (5/5 bilaterally). PERRL at 3 mm bilat. After Visit Summary and discharge instructions reviewed with pt and pt states understanding. Pt discharged to home via car with her brother and mother. Pt transported to car via with volunteer. * Rhianna Crooks - 06/04/2010 1142 EDT Brief Case Management Assessment Reason for Hospitalization: Had coiling for asymptomatic brain aneurysm, picked up incidentally during w/u for lymphoma Current Living Arrangements: Pt lives w/ family in her home, daughter and10 mos old grandchild live w/ pt. Current Social, Health Care and Community Supports: Pt has family support and was very active prior to admission, works full-time doing secretarial/administrative professional work Identified Case Management/Social Work Needs and Issues (housing, care, financial, transportation, cultural, spiritual, emotional, legal, etc.): Pt has supportive family, safe ride home, had prescription benefits and does not need home health services. Case Management Actions (completed and planned): Pt has good d/c plan and no barriers identified. Pt plans to be d/c home today w/ family. Rhianna Crooks RN #[id number] * Selam Hernandez PA - 06/04/2010 0795 EDT ESTHER S/O: I'm great! Has not yet ambulated. Álvarez out, no spontaneous void. Nadia full breakfast. Using IS. Per RN parisa to 40s-50s when asleep but 70-80s when awake. Denies dizziness/weakness/numbness/tingling/speech difficulty/visual changes. Blood pressure 120/65, pulse 91, temperature 36.2 ??C (97.2 ??F), resp. rate 16, height 1.499 m (4'11), weight 50.803 kg (112 lb), SpO2 94%. Sitting up in bed; NAD. Bright, interactive, speech fluent and goal-directed. CN II-XII intact and symmetric. Strength 5/5 throughout. No drift. Sensation grossly intact. CTA B RRR abd soft, NT Right groin dressing c/d/i; no hematoma. Minimal tenderness. DP/PT 2+ B A/P: PPD #1 s/p coil embolization unruptured right PCOM aneurysm; stable. --d/c A-line --ambulate --continue ASA 325 daily --may d/c home once voids and if remains stable. --will arrange POV in 2 weeks, MRA head in 3 months. Selam Becker, PA [phone] * Raphael Salvador RN - 06/03/2010 6063 EDT 1600: pt sitting up to 20 degrees in the bed. Her family is at the bedside and wanting to talk to some doctors. 1615: The neuro surg team at the bedside doing a neuro assessment. 1625: IR doctors at the bedside talking to the pt and her family 1800:pt now off of bedrest. She is sitting up in the bed eating dinner. Tolerating a regular diet. 1900: pt resting. Her BP has stayed below 160 and she has no pain. Her right groin dressing has been clean dry and intact. 2100: pt sitting on the edge of the bed. She tolerated it well. She was never dizzy or lightheaded Her BP did increase to 165. But she was excited about being able to sit up and she was laughing. I told her to try to contain herself and her BP decreased to 134-140 SBP. Her left A-line has had a good pleth and reading all night 2200: pt back to bed and resting. Plan to go home tomorrow. * Selam Hernandez PA - 06/03/2010 1643 EDT ESTHER Feels well. Blood pressure 120/65, pulse 82, temperature 34.4 ??C (93.9 ??F), temperature source Tympanic, resp. rate 23, height 1.499 m (4' 11), weight 50.803 kg (112 lb), SpO2 100%. Awake, alert, conversational. Right groin c/d/i; no hematoma A/P: PPD #0 s/p coil embo unruptured right PCOM aneurysm; stable. --OOB 16:30 --D/c Álvarez --ASA 325 daily --advance diet --no routine labs necessary --plan d/c home tomorrow if stable. Seen with Naohmi Harmon and Giorgio. BARNEY Lopez [phone] * Cecil Lowe - 06/03/2010 1618 EDT Post op check Procedure: PComm aneurysm embolization S: Pt had questions about how soon she can head home and when she can get out of bed. The daughter wondered about discharge instructions. O: Filed Vitals: 06/03/2010 1:00 PM 06/03/2010 2:00 PM 06/03/2010 3:00 PM 06/03/2010 4:00 PM BP: Pulse: 68 Temp: 34.4 ??C (93.9 ??F) TempSrc: Tympanic Resp: 16 14 14 23 Height: Weight: SpO2: 100% 100% 100% 100% PE: Gen: NAD A & O x3 Neuro: CN 2 -12 intact, normal finger to nose, no pronator drift, PERRLA, Strength: 5/5 in UE and LE bilaterally Sensation: grossly intact throughout, Reflexes: Achillees, patellar: 2+ bilaterally, UE (biceps and triceps): 2+ on right, 1+ on left A/P 60 y.o. Female s/p aneurysm embolization doing well. - Monitor for acute neurologic changes - Give family discharge instructions before she heads out - ASA 325 mg daily - Monitor CBC and kalinates Cecil Lowe PGY-1 06/03/10 * Shoshana Layne RN - 06/03/2010 0741 EDT Mel Ramirez arrived to CVU . Patient alert and oriented x3. Bed in lowest position with call goldsmith within reach. Unit orientation and explanation of IV and procedure completed with patient. * Noble Fonseca RN - 05/31/2010 1414 EDT Mel Ramirez has been instructed as follows regarding medication administration for the day ofthe scheduled procedure. Date of Surgery: 06/03/10 Instructions for Taking Medications Day of Surgery Medication Last Dose Hold DOS Take DOS ascorbic acid (VITAMIN C) 500 mg tablet X rosuvastatin (CRESTOR) 10 mg tablet X MULTIVITAMINS (MULTIVITAMIN ORAL) 05/31/10 LORAZEPAM ORAL X BUTALBITAL/ASPIRIN/CAFFEINE (BUTALBITAL COMPOUND ORAL) 04/11 * Heidy Thomas RN - 05/31/2010 5525 EDT I spoke with Mel Ramriez regarding pre-Coil Embolisation procedure instructions, including registration check in time,NPO status, Statistics Teacher needed,bringing accurate medication list, allergy list, procedure information, and how to contact CVU . Patient was instructed also to take all medications e xcept Butalbitalas directed. All patient questions answered & Mel Ramirez verbalizes understanding of all instructions. documented in this encounter H&P Notes * Selam Hernandez PA - 06/03/2010 1117 EDT Admission H&P Update Mel Ramirez has had no change in health since the pre-operative H&P was completed on 05/29/10 (see scanned documents). Plan: Coil embolization unruptured right PCOM aneurysm today under GETA followed by overnight neuro/CV monitoring in ICU. BARNEY Lopez 06/03/2010 11:17 AM documented in this encounter Procedure Notes * Inpatient, Physician - 06/06/2010 1319 EDTAssociated Order(s): ORDERS - SCANNED * Inpatient, Physician - 06/06/2010 1319 EDTAssociated Order(s): ECG REPORT - SCANNED * Inpatient, Physician - 06/06/2010 1319 EDTAssociated Order(s): IMPLANT RECORD (PACEMAKER ONLY) - SCANNED * Cecil Harmon MD - 06/03/2010 1510 EDTProcedure(s): IN TCAT PERMANENT OCCLUSION/EMBOLIZATION PRQ ACQUISITION EDITOR Pre-Procedure Diagnose(s): Cerebral aneurysm, nonruptured Post-Procedure Diagnose(s): Cerebral aneurysm, nonruptured Radiologist: Jeferson Farnsworth Procedure: Aneurysm embolization Diagnosis/Reason: PCOMM aneurysm Anesthesia: get Approach: rcfa Medications: Asa suppository EBL: minimal Specimens: none Preliminary Findings: 6*6*8 mm right pcomm aneurysm. Right P1 segment is patent. Good coil pack with preservation of PCOMM Complications: none Recommendations: Neurologic monitoring in ICU. Asa 325mg daily. * Inpatient, Physician - 06/03/2010 0000 EDTAssociated Order(s): ORDERS - SCANNED documented in this encounter OR Notes * Anesthesia Preprocedure Evaluation - Inpatient, Physician - 06/06/2010 1319 EDT * OR PreOp - Inpatient, Physician - 06/06/2010 1319 EDT * Anesthesia Procedure Notes - Inpatient, Physician - 06/03/2010 1317 EDT documented in this encounter Miscellaneous Notes * Scanned Note-Null - Inpatient, Physician - 06/06/2010 1319 EDT * Scanned Note-Null - Inpatient, Physician - 06/06/2010 1319 EDT * Scanned Note-Null - Inpatient, Physician - 06/06/2010 1319 EDT * Plan of Care - Grecia Watson RN - 06/04/2010 0725 EDT Problem: NEUROLOGICAL STATUS Goal: Mental status/cognition is maintained/returned to baseline 07:00: Assumed care of pt, report received. 08:00: Neuro interventional PA in to examine pt. VSS. PA aware of bradycardia (48-52) when asleep with stable BP. Pt A&Ox3, MAEx4 strongly/equally. PERRL. Face symmetrical. 08:45: Left radial arterial line d/c'd, left AC PIV d/c'd without difficulty. Pt tolerated well. 09:30: Pt OOB to chair independently with nurse at her side. Pt steady on her feet. No assistance required. Pt dizziness/lightheadedness. VSS. 11:15: Neuro-interventional radiology team in to see pt. Plan to d/c to home. Pt ambulated in flores the length of the ICU without difficulty. Pt ambulating independently, steady on her feet. Denies dizziness. 12:10: Pt discharged to home via car with family after discharge instructions and After Visit Summary reviewed with pt. Pt states understanding of instructions. * Plan of Care - Fiona Desir RN - 06/03/2010 1351 EDT Pt arrived from IR S/p coiling. Pt is alert and oriented X 3, following commands, denies any pain/discomfort at this time. Neuro status stable. VSS, resp status stable on 2L NC. Plan: Monitor/maintain hemodynamics, resp status, pt comfort and safety. Monitor labs and FS as ordered, notify MD's of changes and update family as needed. Monitor Neuro status Q1hrs. AB * Scanned Note-Null - Inpatient, Physician - 06/03/2010 0653 EDT * Scanned Note-Null - Inpatient, Physician - 06/03/2010 0653 EDT * Scanned Note-Null - Inpatient, Physician - 06/03/2010 0000 EDT documented in this encounter Plan of Treatment Upcoming Encounters Date Type Department Care Team (Late st Contact Info) Description 08/10/2024 16:00 EDT Appointment [facility] MRI [address] [place] [address] 08/16/2024 14:00 EDT EMILIA [facility] OBGYN Ultrasound [address] [place] [address] 08/29/2024 14:00 EDT Office Visit [facility] OBGYN [address] [place] [address] Ness Vilchis MD [address] [facility] [address] [place] [phone] 08/31/2024 16:00 EDT Office Visit [facility] Orthopedics & Sport Medicine [address] [place], [place] [id number] Reema Peoples PA-C [address] [facility] [address] [place], [place] [address] 09/01/2024 9:30 EDT Office Visit [facility] Rheumatology [address], [place] [phone] Lin Grider MD [address] [facility] [address] [place] [address] 11/08/2024 14:00 EST Office Visit [facility] Adult Hematology & Oncology [facility], [place] [id number] Luz Maria Peter, GABRIEL [address] [facility], [facility] [address] [place] [address] 11/22/2024 10:15 EST Office Visit [facility] Family Medicine - [place] [address] [place] [address] Clint Miramontes MD [address] [place] [phone] documented as of this encounter Procedures Procedure Name Priority Date/Time Associated Diagnosis Comments ORDERS - SCANNED 06/17/2010 11:5 8 EDT IMPLANT RECORD - SCANNED 06/06/2010 13:19 EDT ECG REPORT - SCANNED 06/06/2010 13:19 EDT ORDERS - SCANNED 06/06/2010 13:1 9 EDT MRSA PCR STAT 06/03/2010 19:15 EDT RESPIRATORY CARE EVALUATION ONLY Routine 06/03/2010 13:44 EDT ACTROSETTA ISTAT Routine 06/03/2010 10: 31 EDT ACTVIRALITE ISTAT Routine 06/03/2010 9:5 0 EDT documented in this encounter Results * ORDERS - SCANNED (06/17/2010 11:58 EDT) 06/17/2010 11:5 8 EDT Narrative Procedure Note Inpatient, Physician - 06/03/2010 0:00 EDT Physician Inpatient MD ADMISSION ORDERAB LES * IMPLANT RECORD (PACEMAKER ONLY) - SCANNED (06/06/2010 13:19 EDT) 06/06/2010 13:1 9 EDT Narrative 06/06/2010 15:19 EDT Ordered by an unspecified provider. Transcriptions Inpatient, Physician - 06/06/2010 13:19 EDT Physician Inpatient MD PROCEDURE/MINOR S URGICAL ORDERABLES * ECG REPORT - SCANNED (06/06/2010 13:19 EDT) 06/06/2010 13:1 9 EDT Narrative 06/06/2010 15:19 EDT Ordered by an unspecified provider. Transcriptions Inpatient, Physician - 06/06/2010 13:19 EDT Physician Inpatient MD PROCEDURE/MINOR S URGICAL ORDERABLES * ORDERS - SCANNED (06/06/2010 13:19 EDT) 06/06/2010 13:1 9 EDT Narrative Procedure Note Inpatient, Physician - 06/06/2010 13:19 EDT Physician Inpatient MD ADMISSION ORDERAB LES * MRSA MOLECULAR DETECTION (06/03/2010 19:15 EDT) Specimen Description Anterior nasal Specimen submitted on a swab [facility] Result NEGATIVE for Methicillin Resistant Staphylococcus aureus DNA by PCR. [facility] Report Status Final 06/03/2010 [facility] Specimen of unknown material (specimen) 06/03/2010 19:15 EDT 06/03/2010 20:09 EDT Jeferson Alvares DO MICROBIOLOGY - GENER AL ORDERABLES Performing Organization Address [facility] Co de Phone Number [facility] [address] [place] [address] * ACT, CELITE ISTAT (06/03/2010 10:31 EDT) Activated Clotting Time [address] hand thermal cutter ID [id number] Test performed by Interventional Radiology. Baseline ref range = 84 to 139 seconds For non baseline ref ranges see procedure. [facility] 06/03/2010 10:3 1 EDT 06/03/2010 10:43 EDT Cecil Harmon MD POINT OF CARE T EST ORDERABLES Performing Organization Address [facility] Co de Phone Number [facility] [address] [place] [address] * ACT, CELITE ISTAT (06/03/2010 9:50 EDT) Activated Clotting Time [address] ANSELMO hand thermal cutter ID [id number] Test performed by Interventional Radiology. Baseline ref range = 84 to 139 seconds For non baseline ref ranges see procedure. [facility] 06/03/2010 9:50 EDT 06/03/2010 9:56 EDT Cecil Harmon MD POINT OF CARE T EST ORDERABLES Performing Organization Address [facility] Co de Phone Number [facility] [address] [place] [address] documented in this encounter Visit Diagnoses Diagnosis Cerebral aneurysm, nonruptured- Primary Hyperlipidemia Other and unspecified hyperlipidemia Anxiety Anxiety state, unspecified Indolent non-Hodgkins lymphoma (HCC-CMS) Other malignant lymphomas, unspecified site, extranodal and solid organ sites documented in this encounter Administered Medications Inactive Administered Medications - up to 3 most recent administrations Medication Order MAR Action Action Date Dose Rate Site aspirin suppository 600 mg 600 mg, rectal, DAILY, 1 dose, First dose on Thu06/03/10 at 1200, STAT Given 06/03/2010 12:36 EDT 600 mg aspirin tablet 325 mg 325 mg, oral, DAILY, First dose on Thu06/04/10 at 0900, Until Discontinued, Routine Given 06/04/2010 9:00 EDT 325 mg rosuvastatin (CRESTOR) tablet 10 mg 10 mg, oral, AT BEDTIME, First dose on Thu06/03/10 at 2100, Until Discontinued, Routine, Postprocedure Given 06/03/2010 21:00 EDT 10 mg sodium chloride 0.9 % (NS) infusion 50 mL/hr, intravenous, CONTINUOUS, Starting on Thu06/03/10 at 0815, Until Thu06/03/10 at 1340, Routine, Preprocedure New Bag 06/03/2010 8:15 EDT 50 mL/hr 50 mL/hr sodium chloride 0.9 % with KCl 20 mEq/L infusion 100 mL/hr, intravenous, CONTINUOUS, Starting on Thu06/03/10 at 1400, Until Thu06/04/10 at 0818, Routine, Postprocedure Rate Documented 06/04/2010 6:00 EDT 100 mL/hr 100 mL/hr Rate Documented 06/04/2010 5:00 EDT 100 mL/hr 100 mL/hr Rate Documented 06/04/2010 4:00 EDT 100 mL/hr 100 mL/hr documented in this encounter Discontinued Medications Medication Sig Discontinue Reason Start Date End Da te acetaminophen (TYLENOL) 650 mg tablet Take 1.5 Tabs by mouth every 6 hours as needed for Pain. 06/04/2010 06/04/2010 documented as of this encounter Historical Medications * This list may reflect changes made after this encounter. Medication Sig Dispensed Refills Start Date End Date acetaminophen (TYLENOL) 500 mg tablet Take 2 Tabs by mouth every 6 hours as needed for Pain. 06/04/2010 09/19/2019 aspirin 325 mg tablet Take 1 Tab by mouth daily. 06/04/2010 06/05/2022 acetaminophen (TYLENOL) 650 mg tablet Take 1.5 Tabs by mouth every 6 hours as needed for Pain. 06/04/2010 06/04/2010 ascorbic acid (VITAMIN C) 500 mg tablet Take 500 mg by mouth daily. 06/02/2013 added in this encounter Active and Recently Administered Medications Times are shown in EDT. Scheduled Medication Order 06/02/2010 06/03/2010 06/04/2010 aspirin suppository 600 mg (COMPLETED) 600 mg, rectal, DAILY, 1 dose, First dose on Thu06/03/10 at 1200, STAT 1236 (Given - Provider: Susana Raman, RN) aspirin tablet 325 mg 325 mg, oral, DAILY, First dose on Thu06/04/10 at 0900, Until Discontinued, Routine 0900 (Given - Provid er: Grecia Watson RN) rosuvastatin (CRESTOR) tablet 10 mg (CANCELED) 10 mg, oral, AT BEDTIME, First dose on Thu06/03/10 at 2100, Until Discontinued, Routine, Postprocedure 2100 (Given - Provider: Raphael Salvador RN) Continuous Medication Order 06/02/2010 06/03/2010 06/04/2010 sodium chloride 0.9 % (NS) infusion (CANCELED) 50 mL/hr, intravenous, CONTINUOUS, Starting on Thu06/03/10 at 0815, Until Thu06/03/10 at 1340, Routine, Preprocedure 0815 (New Bag - Provider: Shoshana Layne, ATTILA) sodium chloride 0.9 % with KCl 20 mEq/L infusion (CANCELED) 100 mL/hr, intravenous, CONTINUOUS, Starting on Thu06/03/10 at 1400, Until Thu06/04/10 at 0818, Routine, Postprocedure 1400 (New Bag - Provider: Fiona Desir RN)1500 (Rate Documented - Provider: Fiona Desir RN)1600 (Rate Documented - Provider: Raphael Salvador RN)1700 (Rate Documented - Provider: Raphael Salvador RN)1800 (Rate Documented - Provider: Raphael Salvador RN)1900 (Rate Documented - Provider: Raphael Salvador RN)2000 (Rate Documented - Provider: Raphael Salvador RN)2100 (Rate Documented - Provider: Raphael Salvador RN)2200 (Rate Documented - Provider: Raphael Salvador RN)2300 (Rate Documented - Provider: Raphael Salvador RN) 0000 (New Bag - Provider: Unique Iverson)0200 (Rate Documented - Provider: Unique Iverson)0400 (Rate Documented - Provider: Unique Iverson)0500 (Rate Documented - Provider: Unique Iverson)0600 (Rate Documented - Provider: Unique Iverson)0845 (Completed - Provider: Grecia Watson RN) PRN Medication Order 06/02/2010 06/03/2010 06/04/2010 acetaminophen (TYLENOL) tablet 650 mg 650 mg, oral, EVERY 4 HOURS PRN, Starting on Thu06/03/10 at 1340, Until Thu06/04/10 at 1418, Pain, Routine, Postprocedure documented in this encounter Orders Medications Ordered That Allan ht Not Have Been Administered Count Last Ordered Date First Ordered Date acetaminophen (TYLENOL) suppository 650 mg 1 06/03/2010 acetaminophen (TYLENOL) tablet 650 mg 1 12/2009 atropine 0.1 mg/mL 10 mL syringe 0.5 mg 1 0 06/03/2010 hydrALAZINE (APRESOLINE) injection 10 mg 1 06/03/2010 HYDROmorphone (DILAUDID) tablet 2 mg 1 12/2009 HYDROmorphone (PF) (DILAUDID ) 1 mg/mL injection 0.2-0.4 mg 1 06/03/2010 labetalol (TRANDATE) injection 10-20 mg 1 0 06/03/2010 lorazepam (ATIVAN) tablet 1 mg 1 06/03/2010 meperidine (PF) (DEMEROL) 25 mg/0.5 mL injection 12.5 mg 1 06/03/2010 naloxone (NARCAN) injection 0.2 mg 1 2009 ondansetron (PF) (ZOFRAN) injection 2 mg 1 06/03/2010 ondansetron (PF) (ZOFRAN) injection 2-4 mg 1 06/03/2010 oxycodone-acetaminophen (PER COCET) 5-325 mg per tablet 1-2 Tab 1 06/03/2010 Diet Count Last Ordered Date First Orde red Date DIET REGULAR 1 06/03/2010 Nursing Count Last Ordered Date First Orde red Date CARDIAC MONITORING 1 06/03/2010 PULSE OXIMETRY 1 06/03/2010 VITAL SIGNS 1 06/03/2010 Respiratory Care Count Last Ordered Date First Ordered Date RESPIRATORY CARE EVALUATION ONLY 1 06/03/20 10 Admission Count Last Ordered Date First Orde red Date NOTIFY PPS OF DISCHARGE COMPLETE 1 06/04/20 10 ADMIT TO INPATIENT 06/03/2010 ADMIT TO OUTPATIENT 1 06/03/2010 PPS NOTIFICATION OF PATIENT ARRIVAL ON UNIT 1 06/03/2010 Transfer Count Last Ordered Date First Orde red Date CHANGE ATTENDING TO: 1 06/03/2010 Discharge Count Last Ordered Date First Orde red Date DISCHARGE PATIENT 1 06/04/2010 documented in this encounter Care Teams Keg Filler Relationship Specialty Start Date End Date Cooper Mojica MD [address] [place] [id number] PCP - General 03/27/10 05/13/17 documented as of this encounter
--- OUTSIDE RECORDS SUMMARY | 2024-08-07 13:41 | XMS_ITS | Encounter Summary ---
Author Organization [facility] Address [address] [place] [address] Care Team Providers Care Aerial Erector Name Role Phone Cooper Mojica MD Primary Care Provider [phone] Encounter Details Date Type Department Care Team (Latest Contact Info) Description 06/06/2011 6:50 EDT - 06/06/2011 15:15 EDT Hospital Encounter [facility] Cardiovascular Unit [address] [place] [address] Jeferson Alvares, DO [address] [place] [address] Discharge Disposition: Home or Self [...] Sign Reading Time Taken Comments Blood Pressure 133/68 06/06/2011 1352 EDT Pulse - - Temperature 36.4 ??C (97.5 ??F) 06/06/2011 0954 EDT Respiratory Rate 16 06/06/2011 1339 EDT Oxygen Saturation 98% 06/06/2011 1345 EDT Inhaled Oxygen Concentration - - Weight 50.8 kg (112 lb) 06/05/2011899 EDT Height 149.9 cm (4' 11) 06/05/2011899 EDT Body Mass Index 22.62 06/05/2011899 EDT documented in this encounter Discharge Instructions * Discharge Instructions* Selam Becker PA - 06/06/2011 11:11 EDT RADIOLOGY PATIENT EDUCATION INSTRUCTIONS FOLLOWING AN ANGIOGRAM Procedure Wound Site - right femoral artery Dr. Jeferson Alvares has completed an angiogram of your Head. 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 There is no bloodflow into the aneurysm. Continue to take aspirin daily. You can reduce the dose to 81 mg daily if you prefer. We will see you back in 1 year for an MRA of the head and office visit. 1. Please drink extra fluids today (6-8 [...] tub or submerge in water for 5 days 8. Do not put lotions or powder on the area for 5 days. 9. Report any signs of infection (redness, swelling, discharge and fever) to your doctor. 10. Refrain from strenuous activity for at least 48 hours. CLOSURE DEVICE Hemostasis Patch - Remove patch in 24 hours - Date - Jun 07 Time - 1200 Soak patch with water, then gently peel patch off. Cover site as listed above for #6. ?? IF YOU HAVE ANY QUESTIONS OR CONCERNS [...] 1-2 Tabs by mouth as needed. 11/05/2016 diphenhydrAMINE (BENADRYL) 25 mg capsule Take [...] documented in this encounter Progress Notes * Brionna Ziegler RN - 06/06/2011 1238 EDT Pt complaining of back discomfort, turned to Right side and feeling much better. * Jessica Barraza - 06/06/2011 0958 EDT At 0954 pt admitted to CVU per stretcher from IR status post cerebral angio. Bed in lowest position. Side rails up. Call goldsmith within reach. Josie PO liquids, declines food at this time. Denies nausea. Shows understanding of bedrest. Monitoring right groin site and vs pr MD orders. 1201-HOB elevated 20 degrees for pt comfort. Vss, r groin cath site without change. 1345-Pt oob ambulated independentlyto bathroom for u/o. R groin site cdi, without sxs of hematoma. 1410-pt dressed independently, steady gait, denies any discomfort. Discharge instructions reviewed and understood, Copy signed and placed in chart. Pt awaiting ride. * Hillary Obrien - 06/06/2011 0911 EDT Pt rec'd in angio [address] for cerebral angiogram. Pt greeted. ID verified, consent obtained, allergies, hx, meds, labs reviewed. Final moment done. Conscious sedation with Versed 3mg V and Fentanyl 100mcg IV. Pt josie procedure well. bilateral DP, PT palpated. Report called to SOFI Staton applied, transported to CVU via stretcher in good condition * Brionna Ziegler, RN - 06/06/2011 0740 EDT Mel Ramirez arrived to CVU from home at 07:05. Patient alert and oriented x3. Bed in lowest position with call goldsmith within reach. Unit orientation and explanation of IV and procedure completed with patient. Friend will be called to pick pt up. Selam Becker to speak with pt. She states she is comfortable. * Heidy Thomas RN - 06/05/2011 0931 EDT Mel Ramirez was not available to speak with when called by phone. Detailed message left on answering machine regarding pre-procedure instructions including NPO status, dedicated driver needed, check in time, bringing medication list and inhalers if applicable. Information with CVU contact phone number left if patient wishes to call for any questions. 1015 Patient called back regarding pre-procedure instructions. She is currently taking Benadryl post bee sting on thigh which is currently about 4 inches in diameter. Patient has H/o swelling reactions to bug bites. Denies any hives or anaphylactic issues. Patient verbalizes understanding of all instructions. documented in this encounter H&P Notes * Selam Becker PA - 06/06/2011 0835 EDT Sedation for Procedure History & Physical Date: 06/06/2011 Time: 8:35 Location: IR 23 Planned Procedure: cerebral angiogram Chief Complaint/Indications for Procedure: s/p coil embolization unruptured right PCOM aneurysm 06/2010 Previous Complication with Sedation and/or Anesthesia? No Allergies: Allergies Allergen Reactions ??? No Known Drug Allergies ??? Other - See Comments Stings- swollen local reactions Current Medications: Prescriptions prior to admission Medication Sig Dispense Refill ??? diphenhydrAMINE (BENADRYL) 25 mg capsule Take 25 mg by mouth every 6 hours as needed. ??? aspirin 325 mg tablet Take 1 Tab by mouth daily. ??? acetaminophen (TYLENOL) 500 mg tablet Take 2 Tabs by mouth every 6 hours as needed for Pain. ??? ascorbic acid (VITAMIN C) 500 mg tablet Take 500 mg by mouth daily. ??? rosuvastatin (CRESTOR) 10 mg tablet Take 10 mg by mouth at bedtime. ??? MULTIVITAMINS (MULTIVITAMIN ORAL) Take 1 Tab by mouth daily. ??? LORAZEPAM ORAL Take 1 mg by mouth at bedtime. ??? BUTALBITAL/ASPIRIN/CAFFEINE (BUTALBITAL COMPOUND ORAL) Take 1-2 Tabs by mouth as needed. Past Medical History: Past Medical History Diagnosis Date ??? Aneurysm ??? Hypercholesteremia ??? Psychiatric problem anxiety ??? Cancer lymphoma-marry marginal ??? 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 Inguinal lymphadenopathy Social History: Past Surgical History Procedure Date ??? Tonsillectomy [...] family history. Review of Systems as pertinent: Dry cough. Recent wasp sting left thigh--swelling improving. Physical: Vital Signs: BP 137/63 Temp(Src) 36.2 ??C (97.2 ??F) (Temporal) Resp 18 Ht 149.9 cm (59) Wt 50.803 kg (112 lb) BMI 22.62 kg/m2 SpO2 99% Heart Examination: Cardiac Regularity: Regular Respiratory Examination: Respiratory Pattern: Regular Breath Sounds Right: Rhonchi (rare) Breath Sounds Left: Rhonchi (rare) Additional physical exam related to the proposed procedure, patient activity, disease state and treatment as pertinent: Indurated area left anterior thigh, erythematous but not warm, no drainage. Does not appear cellulitic. Assessment: Previous complications with sedation or anesthesia?: No Airway Concerns: None Anesthesia Classification: ASA 2 Fasting Time: Time of last liquid intake: 2358 Date of Last Liquid Intake: 06/05/11 Time of last solid intake: 1899 Date of last solid intake: 06/05/11 Patient Appropriate Candidate for Planned Sedation?: Yes documented in this encounter Procedure Notes * Jeferson Alvares DO - 06/06/2011 0950 EDT NEUROINTERVENTIONAL RADIOLOGY Mel Ramirez 61 y.o. 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 Bilateral Internal Carotid Artery Angiogram Access Site: Right common femoral artery Total fluoroscopy time: 2.7 minutes Total contrast volume load: 50 cc SURGEONS: DO Giorgio Slip Laster: none ANESTHESIA: IV sedation with versed and fentanyl PRELIMINARY FINDINGS: No residual aneurysm COMPLICATIONS: None PLAN: Return to CVU Dr. Jeferson Alvares Neurointerventional Radiology [facility] documented in this encounter Miscellaneous Notes * Scanned Note-Null - Kaiako Kura [place], Scan - 06/06/2011 0000 EDT * Scanned Note-Null - Kaiako Kura [place], Scan - 06/06/2011 0000 EDT * Scanned Note-Null - Kaiako Kura [place], Scan - 06/06/2011 0000 EDT * Scanned Note-Null - Kaiako Kura [place], Scan - 06/06/2011 0000 EDT * Scanned Note-Null - Kaiako Kura [place], Scan - 06/06/2011 0000 EDT documented in this encounter Plan of Treatment Upcoming Encounters Date Type Department Care Team (Late st Contact Info) Description 08/10/2024 16:00 EDT Appointment [facility] MRI [address], [place] [id number] 08/16/2024 14:00 EDT EMILIA [facility] OBGYN Ultrasound [address] [place] [address] 08/29/2024 14:00 EDT Office Visit [facility] OBGYN [address], [place] [address] Ness Vilchis MD [address] [place], [place] [address], [address] [place] [address] 08/31/2024 16:00 EDT Office Visit [facility] Orthopedics & Sport Medicine [address], [address] [place], [place] [phone] Reema Peoples PA-C [address] [facility] [address] [place], [place] [address] 09/01/2024 9:30 EDT Office Visit [facility] Rheumatology [address], [place] [address] Lin Grider MD [address] [place] [address] [address] [place] [phone] 11/08/2024 14:00 EST Office Visit [facility] Adult Hematology & Oncology [facility] [place] [address] Luz Maria Peter, GABRIEL [address] [facility], [facility] [address] [place] [phone] 11/22/2024 10:15 EST Office Visit [facility] Family Medicine - [place] [address] [place] [address] [phone] Clint Miramontes MD [address] [place] [phone] documented as of this encounter Visit Diagnoses Not on filedocumented in this encounter Administered Medications Inactive Administered Medications - up to 3 most recent administrations Medication Order MAR Action Action Date Dose Rate Site fentanyl citrate (PF) 50 mcg/mL injection 25-250 mcg 25-250 mcg, intravenous, ONCE PRN, 1 dose, Starting on Thu06/06/11 at 0828, Until Thu06/06/11 at 0936, Pain, Routine, Intraprocedure Given 06/06/2011 9:36 EDT 100 mcg midazolam (VERSED) injection 0.5-10 mg 0.5-10 mg, intravenous, ONCE PRN, 1 dose, Starting on Thu06/06/11 at 0828, Until Thu06/06/11 at 0936, Sedation, Routine, Intraprocedure Given 06/06/2011 9:36 EDT 3 mg sodium chloride 0.9 % (NS) infusion 50 mL/hr, intravenous, CONTINUOUS, Starting on Thu06/06/11 at 0730, Until Thu06/06/11 at 1753, Routine, Preprocedure Rate Documented 06/06/2011 9:50 EDT 50 mL/hr 50 mL/hr New Bag 06/06/2011 7:31 EDT 50 mL/hr 50 mL/hr documented in this encounter Historical Medications * This list may reflect changes made after this encounter. Medication Sig Dispensed Refills Start Date End Date diphenhydrAMINE (BENADRYL) 25 mg capsule Take 25 mg by mouth every 6 hours as needed. 06/02/2013 added in this encounter Active and Recently Administered Medications Times are shown in EDT. Continuous Medication Order 06/04/2011 06/05/2011 06/06/2011 sodium chloride 0.9 % (NS) infusion (CANCELED) 50 mL/hr, intravenous, CONTINUOUS, Starting on Thu06/06/11 at 0730, Until Thu06/06/11 at 1753, Routine, Preprocedure 0731 (New Bag - Prov ider: Brionna Ziegler RN)0950 (Rate Documented - Provider: Jessica Barraza) PRN Medication Order 06/04/2011 06/05/2011 06/06/2011 fentanyl citrate (PF) 50 mcg/mL injection 25-250 mcg (COMPLETED) 25-250 mcg, intravenous, ONCE PRN, 1 dose, Starting on Thu06/06/11 at 0828, Until Thu06/06/11 at 0936, Pain, Routine, Intraprocedure 0936 (Given - Provid er: Hillary Obrien - Comment: given in divided doses) midazolam (VERSED) injection 0.5-10 mg (COMPLETED) 0.5-10 mg, intravenous, ONCE PRN, 1 dose, Starting on Thu06/06/11 at 0828, Until Thu06/06/11 at 0936, Sedation, Routine, Intraprocedure 0936 (Given - Provid er: Hillary Obrien - Comment: given in divided doses) documented in this encounter Orders Medications Ordered That Allan ht Not Have Been Administered Count Last Ordered Date First Ordered Date acetaminophen (TYLENOL) tablet 1,000 mg 1 0 06/06/2011 ondansetron (PF) (ZOFRAN) injection 2-4 mg 1 06/06/2011 Nursing Count Last Ordered Date First Orde red Date BEDREST 1 06/06/2011 ELEVATE HEAD OF BED 1 06/06/2011 INSERT PERIPHERAL IV 1 06/06/2011 OXYGEN THERAPY 1 06/06/2011 Admission Count Last Ordered Date First Orde red Date ADMIT TO OUTPATIENT 1 06/06/2011 NOTIFY PPS OF DISCHARGE COMPLETE 06/06/20 11 Discharge Count Last Ordered Date First Orde red Date DISCHARGE PATIENT 1 06/06/2011 documented in this encounter Care Teams Aerial Erector Relationship Specialty Start Date End Date Cooper Mojica MD [address] [place] [address] PCP - General 03/27/10 05/13/17 documented as of this encounter
--- OUTSIDE RECORDS SUMMARY | 2024-08-07 13:41 | XMS_ITS | Encounter Summary ---
Author Organization [facility] Address [address] [place] [address] Care Team Providers Care Physician'S Aide Name Role Phone Cooper Mojica MD Primary Care Provider [phone] Encounter Details Date Type Department Care Team (Latest Contact Info) Description 08/08/2014 10:29 EDT - 08/08/2014 23:59 EDT Hospital Encounter [facility] [address] [place] [address] Unknown, Provider, Discharge Disposition: Home or Self [...] 16:00 EDT Appointment [facility] MRI [address] [place], [place] [address] 08/16/2024 14:00 EDT EMILIA [facility] OBGYN Ultrasound [address] [place] [phone] 08/29/2024 14:00 EDT Office Visit [facility] OBGYN [address] [place] [phone] Ness Vilchis MD [address] [place] [address], [address] [place] [phone] 08/31/2024 16:00 EDT Office Visit [facility] Orthopedics & Sport Medicine [address], [address] [place], [place] [phone] Reema Peoples PA-C [address] [facility] [address] [place] [address] 09/01/2024 9:30 EDT Office Visit [facility] Rheumatology [address] [place] [address] [phone] Lin Grider MD [address] [place], [place] [address]B [address] [place] [phone] 11/08/2024 14:00 EST Office Visit [facility] Adult Hematology & Oncology [facility] [place] [address] Luz Maria Peter, PULP AND PAPER TESTER [address] [facility], [facility] [address] [place] [phone] 11/22/2024 10:15 EST Office Visit [facility] Family Medicine - [place] [address] [place] [phone] Clint Miramontes MD [address] [place] [phone] documented as of this encounter Visit Diagnoses Not on filedocumented in this encounter Care Teams Physician'S Aide Relationship Specialty Start Date End Date Cooper Mojica MD [address] [place] [address] PCP - General 03/27/10 05/13/17 documented as of this encounter
--- OUTSIDE RECORDS SUMMARY | 2024-08-07 13:41 | XMS_ITS | Encounter Summary ---
Author Organization [facility] Address [address] [place] [address] Care Team Providers Care Otc Clerk Name Role Phone Cooper Mojica MD Primary Care Provider [phone] Reason for Visit * Reason Comments Aneurysm s/p right PCOM aneur ysm coil embolization 06/2010 Encounter Details Date Type Department Care Team (Late st Contact Info) Description 06/03/2012 13:00 EDT Office Visit [facility] Interventional Radiology - [address] [address] Selam Becker PA-C [address] [place] [address], [address] [place] [phone] Cerebral aneurysm, nonruptured (Primary Dx) Social History [...] Sign Reading Time Taken Comments Blood Pressure 120/56 06/03/2012 1319 EDT Pulse 73 06/03/2012 1319 EDT Temperature - - Respiratory Rate 16 06/03/2012 1319 EDT Oxygen Saturation - - Inhaled Oxygen Concentration - - Weight 50.3 kg (111 lb) 06/03/2012 1319 EDT Height 149.9 cm (4' 11) 06/03/2012 1319 EDT Body Mass Index 22.42 06/03/2012 1319 EDT documented in this encounter Patient Instructions * Patient Instructions* Selam Becker PA - 06/03/2012 13:30 EDT Your aneurysm looks great on MRA today. We will arrange for you to return in one year for MRA of the head an office visit. As always, do not hesitate to call us with any questions or concerns. [phone], option 1. BARNEY Lopez ?? You will receive a reminder appointment letter in the mail approximately 3 months before you aredue for your visit. documented in this encounter Progress Notes * Selam Becker PA - 06/03/2012 1645 EDT Subjective: Patient ID: Mel Ramirez is a 62 y.o. female. Chief Complaint Patient presents with ??? Aneurysm s/p right PCOM aneurysm coil embolization 06/2010 HPI I had the pleasure of seeing Mel Ramirez today in the Neurointerventional Radiology clinic. 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 Mel has been doing well since I saw her last year. Her lymphoma remains in complete remission. Her daughter and son-in-law continue to live with her along with her granddaughter and now a new grandson. She enjoys having her family with her. 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 She has had no new headaches or worrisome neurologic symptoms. Patient Active Problem List Diagnoses ??? Cerebral [...] Outpatient Prescriptions Marked as Taking for the 06/03/12 encounter (Office Visit) with Selam Becker PA Medication Sig Dispense Refill ??? CALCIUM CARBONATE/VITAMIN D3 (CALCIUM 600 + D,3, ORAL) Take 2 Tabs by mouth daily. ??? cholecalciferol, Vitamin D3, (VITAMIN D) 1,000 unit tablet Take 2,000 Units by mouth daily. ??? aspirin 325 mg tablet Take 1 Tab by mouth daily. ??? rosuvastatin (CRESTOR) 10 mg tablet Take 10 mg by mouth at bedtime. ??? MULTIVITAMINS (MULTIVITAMIN ORAL) Take 1 Tab by mouth daily. ??? LORAZEPAM ORAL Take 1 mg by mouth at bedtime. Allergies Allergen Reactions ??? No Known Drug Allergies ??? Other - See Comments Stings- swollen local reactions ROS - See HPI Objective: BP 120/56 Pulse 73 Resp 16 Ht 149.9 cm (59) Wt 50.349 kg (111 lb) BMI 22.42 kg/m2 Physical Exam Mel looks great today. She is well-dressed and well groomed. As usual she is full energy. She isalert, oriented and in no acute distress. Speech is linear, fluent and goal directed. Thought processing is tight. Cranial nerves II through XII are intact and symmetric. Strength and sensation are intact throughout. She ambulates independently with a narrow based and stable gait. MRA of the head was performed just prior to today's visit and the images reviewed by Dr. Cecil Harmon. There is a a small amount of residual filling in the neck of the previously treated right PCOM aneurysm, stable compared with prior imaging. 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 The aneurysm is stable on serial imaging. She is doing well with no new headaches or worrisomeneurologic symptoms. We will arrange for Mel to return in one year for MRA of the head and office visit. She knows tocontact us in the interim with any questions or concerns. I spent a total of 15 minutes in face to face time with this patient and 15 minutes of that time was spent in disease review, image review, counseling, treatment planning and coordination of care as described in the progress note. Dr. Harmon was immediately available for consultation during today's evaluation. BARNEY Lopez documented in this encounter Plan of Treatment Upcoming Encounters Date Type Department Care Team (Late st Contact Info) Description 08/10/2024 16:00 EDT Appointment [facility] MRI [address] [place], [place] [phone] 08/16/2024 14:00 EDT EMILIA [facility] OBGYN Ultrasound [address] [place] [id number] 08/29/2024 14:00 EDT Office Visit [facility] OBGYN [address] [place], [place] [phone] Ness Vilchis MD [address] [place] [address]A, [address] [place] [phone] 08/31/2024 16:00 EDT Office Visit [facility] Orthopedics & Sport Medicine [address], [address] [place], [place] [phone] Reema Peoples PA-C [address] [facility] [address] [place], [place] [phone] 09/01/2024 9:30 EDT Office Visit [facility] Rheumatology [address] [place], [place] [phone] Lin Grider MD [address] [place] [address] [address] [place] [address] 11/08/2024 14:00 EST Office Visit [facility] Adult Hematology & Oncology [facility] [address] [place], [place] [phone] Luz Maria Peter, GABRIEL [address] [facility], [facility] [place] [address] [place] [phone] 11/22/2024 10:15 EST Office Visit [facility] Family Medicine - [place] [address] [place], [place] [phone] Clint Miramontes MD [address] [place] [phone] documented as of this encounter Procedures Procedure Name Priority Date/Time Associated Diagnosis Comments MR ANGIO HEAD WO CONTRAST 06/02/2013 12:45 EDT documented in this encounter Results * MR ANGIO HEAD WO CONTRAST (06/02/2013 12:45 EDT) Anatomical Region Laterality Modality Other 06/02/2013 12:4 5 EDT 06/02/2013 13:19 EDT Narrative 06/02/2013 13:19 EDT Magnetic Resonance Angiogram of the [place] History: 63-year-old female with right posterior communicating artery aneurysm Comparison: MRA December 05, 2010 and June 03, 2012. Technique: ??Axial T1 weighted images were performed of the brain. ??3D time of flight MRA of the [place] was then performed with multiplanar and 3-D reformations. Findings: Susceptibility artifact is again seen in the previously embolized right posterior communicating artery aneurysm. The posterior communicating artery remains patent. There is a small residual neck which is stable when compared to prior examinations. No additional aneurysm is seen. Axial images of the brain show no mass or midline shift. No extra-axial collection is seen. Calvarial osseous and scalp soft tissue structures are grossly unremarkable. Impression: Stable appearance of small residual aneurysm neck Procedure Note 06/02/2013 Magnetic Resonance Angiogram of the [place] History: 63-year-old female with right posterior communicating artery aneurysm Comparison: MRA December 05, 2010 and June 03, 2012. Technique: Axial T1 weighted images were performed of the brain. 3D time of flight MRA of the [place] was then performed with multiplanar and 3-D reformations. Findings: Susceptibility artifact is again seen in the previously embolized right posterior communicating artery aneurysm. The posterior communicating artery remains patent. There is a small residual neck which is stable when compared to prior examinations. No additional aneurysm is seen. Axial images of the brain show no mass or midline shift. No extra-axial collection is seen. Calvarial osseous and scalp soft tissue structures are grossly unremarkable. Impression: Stable appearance of small residual aneurysm neck Selam Becker PA-C [facility] ORDER[facility] S documented in this encounter Visit Diagnoses Diagnosis Cerebral aneurysm, nonruptured- Primary documented in this encounter Historical Medications * This list may reflect changes made after this encounter. Medication Sig Dispensed Refills Start Date End Date cholecalciferol, Vitamin D3, 25 mcg (1,000 unit) tablet Take 2 Tablets by mouth daily. CALCIUM CARBONATE/VITAMIN D3 (CALCIUM 600 + D,3, ORAL) Take 2 Tabs by mouth daily. 11/05/2016 added in this encounter Care Teams Otc Clerk Relationship Specialty Start Date End Date Cooper Mojica MD [address] [place] [id number] PCP - General 03/27/10 05/13/17 documented as of this encounter
--- OUTSIDE RECORDS SUMMARY | 2024-08-07 13:41 | XMS_ITS | Encounter Summary ---
Author Organization [facility] Address [address] [place] [address] Care Team Providers Care Field Talent Qualification Specialist Name Role Phone Cooper Mojica MD Primary Care Provider [phone] Reason for Visit * Reason Comments Follow-up Encounter Details Date Type Department Care Team (Late st Contact Info) Description 06/13/2010 11:00 EDT Office Visit [facility] Interventional Radiology - [address] [address] Selam Becker PA-C [address] [place] [address], [address] [place] [phone] Cerebral aneurysm, nonruptured (Primary Dx) Discharge Disposition: [...] Reading Time Taken Comments Blood Pressure 120/70 06/13/2010 1049 EDT Pulse 60 06/13/2010 1049 EDT Temperature - - Respiratory Rate 16 06/13/2010 1049 EDT Oxygen Saturation - - Inhaled Oxygen Concentration - - Weight 49.9 kg (110 lb) 06/13/2010 1049 EDT Height 149.9 cm (4' 11) 06/13/2010 1049 EDT Body Mass Index 22.22 06/13/2010 1049 EDT documented in this encounter Patient Instructions * Patient Instructions* Ivette Rutherford - 06/13/2010 11:41 EDT ?? YAvila are scheduled to have a follow up MRA of the head on: 09/12/10 at 8:15 a.m. ?? Please check into Registration on Main Pav[facility], Level 3 at: 7:30 a.m. You will then be directedto the MRI Department. ?? Your follow up visit with the Interventional Radiology Clinic is: 09/12/10 at 9:30 a.m. If you are unable to keep the appointments, or have any questions, please call me at your earliest convenience at [phone]. documented in this encounter Discharge Disposition Disposition Code Departure Means Destination Auto Discharge documented in this encounter Progress Notes * Selam Hernandez PA - 06/25/2010 1711 EDT INTERVENTIONAL RADIOLOGY CLINIC PROGRESS/FOLLOWUP NOTE - 06/13/[address] Mojica: I had the pleasure of seeing Mel Ramirez today in the Neurointerventional Radiology Clinic in followup to a coil embolization of an unruptured right posterior communicating artery aneurysm last week. Ms Ramirez states that she is feeling quite well. She did develop a fairly large bruise in her right groin where her femoral artery was accessed and a smaller one on the left thigh where we placed agrounding needle in the subcutaneous tissues. These are not unexpected. Her energy and endurance are returning. She actually did return to work Thursday and worked a half day and also worked a half day yesterday, but definitely notices that she is ready to leave at the end of 4 or 5 hours. Although it has been difficult for her, she has heeded our warning to not lift anything greater than 10 pounds and to basically take it easy. She has an occasional mild headache which resolves with Tylenol. She has had no new visual symptoms, numbness, weakness, tingling, balance difficulty or speech difficulty, although she does state that there is some occasional word finding difficulty, though this preceded her procedure. It has not gotten worse. On examination today, blood pressure is 120/70 in the right arm, pulse is 60 and regular. The patient is her normal high energy bubbly self and she sprung up out of her chair to give me a hug when I entered the room. Cranial nerves II through XII are intact and symmetric. Strength is 5/5 throughout. Rapid alternating movements are intact without evidence of dysmetria. The patient ambulates steadily and independently with a narrow-based and independent gait. Speech is fluent and goal directed. Lungs are clear to auscultation bilaterally and the heart has a regular rate and rhythm. Right groin ecchymosis is resolving; the puncture site is healed. Left thigh ecchymosis is resolving. Impression and recommendation: The patient is a little over 1 week out from coil embolization of anunruptured cerebral aneurysm. She has done very well. She has had a completely uncomplicated recovery. I have advised her that the bruising in her groins will continue to resolve over the next couple ofweeks. She may now lift without restrictions, though I have asked her to use common sense and perhaps hold off on stacking the two cords of wood she has in her yard until she heals for another week. 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 She may now drive without restrictions. We will arrange to have Ms Ramirez return in 3 months for MRA of the head and office evaluation. She has our contact information should she develop any questions or concerns in the interim. It is a pleasure participating in the care of this delightful patient. Please do not hesitate to contact us with any questions or concerns. Sincerely, Electronically Signed by BARNEY Lopez 06/25/2010 17:11 Dictated by: BARNEY Lopez - BARNEY Lopez P - BB Job ID: Doc ID: [id number] Ext Doc ID: [id number] cc: Cooper Mojica MD * Selam Hernandez PA - 06/13/2010 1312 EDT Note dictated. BARNEY Lopez documented in this encounter Plan of Treatment Upcoming Encounters Date Type Department Care Team (Late st Contact Info) Description 08/10/2024 16:00 EDT Appointment [facility] MRI [address] [place] [phone] 08/16/2024 14:00 EDT EMILIA [facility] OBGYN Ultrasound [address] [place] [phone] 08/29/2024 14:00 EDT Office Visit [facility] OBGYN [address] [place] [phone] Ness Vilchis MD [address] [place] [address], [address] [place] [phone] 08/31/2024 16:00 EDT Office Visit [facility] Orthopedics & Sport Medicine [address], [address] [place], [place] [phone] Reema Peoples PA-C [address] [facility] [address] [place] [address] 09/01/2024 9:30 EDT Office Visit [facility] Rheumatology [address] [place] [phone] Lin Grider MD [address] [place] [address] [address] [place] [phone] 11/08/2024 14:00 EST Office Visit [facility] Adult Hematology & Oncology [facility] [place], [place] [phone] Luz Maria Peter, GABRIEL [address] [facility] [address] [place] [phone] 11/22/2024 10:15 EST Office Visit [facility] - [place] [address] [place] [phone] Clint Miramontes MD [address] [place] [phone] documented as of this encounter Visit Diagnoses Diagnosis Cerebral aneurysm, nonruptured- Primary documented in this encounter Care Teams Field Talent Qualification Specialist Relationship Specialty Start Date End Date Cooper Mojica MD [address] [place] [id number] PCP - General 03/27/10 05/13/17 documented as of this encounter
--- OUTSIDE RECORDS SUMMARY | 2024-08-07 13:41 | XMS_ITS | Encounter Summary ---
Author Organization [facility] Address [address] [place] [address] Care Team Providers Care Fur Clipper Name Role Phone Cooper Mojica MD Primary Care Provider [phone] Reason for Visit * Reason Comments Follow-up Encounter Details Date Type Department Care Team (Late st Contact Info) Description 12/05/2010 9:30 EST Office Visit [facility] Interventional Radiology - [address] [address] Selam Becker PA-C [address] [place] [address], [address] [place] [address] Cerebral aneurysm, nonruptured (Primary Dx) [...] Sign Reading Time Taken Comments Blood Pressure 120/78 12/05/2010 0930 EST Pulse 79 12/05/2010 0930 EST Temperature - - Respiratory Rate 16 12/05/2010 0930 EST Oxygen Saturation - - Inhaled Oxygen Concentration - - Weight 51.7 kg (114 lb) 12/05/2010 0930 EST Height 149.9 cm (4' 11) 12/05/2010 0930 EST Body Mass Index 23.03 12/05/2010 0930 EST documented in this encounter Patient Instructions * Patient Instructions* Ivette Rutherford - 12/05/2010 9:33 EST Continue to take aspirin 325 mg daily. See you in June! Selam ?? You will receive a reminder appointment letter in the mail approximately 3 months before you aredue for your visit. ( cerebral angiogram June 2011). We now have you tentatively scheduled Monday, June 06, 2011 @7:00 a.m. 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 Mel reports that she is doing very well in general. She has occasional head twinges but no severe headaches nor new visual changes, balance problems, numbness, weakness or tingling. She has noticed some uncomfortable bilateral inguinal lymphadenopathy recently and has been feeling more fatigued than usual and she will be seeing her oncologist, Dr Lambert about this this week. 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 eMl continues to take aspirin 325 mg daily without any difficulty other than an occasional bruise. She is looking forward to an upcoming trip to [place] and is enjoying spending time with her 39-gapyy-rif granddaughter who, along with Mel's daughter, lives with her. Review of current medications reveals that the patient is takin. Aspirin 325 mg daily. 2. Crestor 10 mg at bedtime. 3. Tylenol 1000 mg every 6 hours as needed for pain. 4. Lorazepam 1 mg at bedtime. 5. Multivitamin daily. On examination today, blood pressure is 120/78, pulse is 79, respiration rate is 16. The patient reports 0/10 pain. Height is 69 inches and weight 114 pounds by report. A&O X4; NAD. Speech fluent. CN II-XII intact and symmetric. Strength 5/5 throughout. Gait stable and independent. Imaging: MRA of the head was performed just prior to today's visit and the images reviewed by Dr Jeferson Alvares. Reveals a stable coil mass in the right posterior communicating artery aneurysm with minimal residual flow unchanged from prior imaging. No new aneurysms are seen. 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 She is doing very well from a neurologic perspective, but does have some new lymphadenopathy, which is a little worrisome given her diagnosis of lymphoma, and she will be seeing her oncologist Dr Lambert this week. I have asked her to continue taking aspirin 325 mg daily. We will arrange for Mel to return in 6months for conventional cerebral angiogram. She has our contact information should she have any questions or concerns in the interim. It is a pleasure participating in the care of this kind patient. Please do not hesitate to contact me with any questions or concerns. Sincerely, Electronically Signed by BARNEY Lopez 12/10/2010 15:25 Dictated by: BARNEY Lopez - BARNEY Lopez A - HB Job ID: Doc ID: [id number] Ext Doc ID: [id number] cc: Cooper Mojica MD * Selam Becker PA - 12/05/2010 1016 EST This note has been dictated. #[id number]. BARNEY Lopez documented in this encounter Plan of Treatment Upcoming Encounters Date Type Department Care Team (Late st Contact Info) Description 08/10/2024 16:00 EDT Appointment [facility] MRI [address] [facility], [place] [id number] 08/16/2024 14:00 EDT EMILIA [facility] OBGYN Ultrasound [address] [place] [address] 08/29/2024 14:00 EDT Office Visit [facility] OBGYN [address] [place], [place] [id number] Ness Vilchis MD [address] [facility], [address] [place] [address] 08/31/2024 16:00 EDT Office Visit [facility] Orthopedics & Sport Medicine [address], [address] [place] [address] Reema Peoples, PA-C [address] [facility] [address] [place], [place] [id number] 09/01/2024 9:30 EDT Office Visit [facility] Rheumatology [address] [place], [place] [phone] Lin Grider MD [address] [place] [address] [address] [place] [address] 11/08/2024 14:00 EST Office Visit [facility] Adult Hematology & Oncology [address] [place] [address], [place] [id number] Luz Maria Peter, GABRIEL [address] [facility], [facility] [address] [place] [address] 11/22/2024 10:15 EST Office Visit [facility] Family Medicine - [place] [address] [place] [address] Clint Miramontes MD [address] [place] [phone] documented as of this encounter Procedures Procedure Name Priority Date/Time Associated Diagnosis Comments IR CAROTID CEREBRAL BILATERAL 06/06/2011 9:50 EDT documented in this encounter Results * IR CAROTID CEREBRAL BILATERAL (06/06/2011 9:50 EDT) Anatomical Region Laterality Modality Other 06/06/2011 9:50 EDT 06/06/2011 17:30 EDT Narrative 06/06/2011 17:30 EDT Diagnostic cerebral angiogram History: Status post coiling of unruptured right posterior communicating artery aneurysm. Vessels selected: ??Right internal carotid artery ?? Left internal carotid artery Hemostasis: Thrombix patch Informed consent: The risks, benefits and alternatives of this procedure were discussed with the patient. All of the patient's questions were answered. The patient gave both written and verbal consent for the procedure and conscious sedation. Technique: The patient was positioned supine and the groins were sterilely prepped and draped in usual fashion. Conscious sedation was achieved via IV versed and fentanyl under the continuous observation heart rate, blood pressure and oxygen saturation. ??Subsequently, the skin and subcutaneous soft tissues overlying the right common femoral artery were anesthetized with 1% buffered lidocaine. A 3 mm dermatotomy was then performed. Then, using Seldinger technique, a 4 Austrian JAIME catheter was directed over an angled Terumo Glidewire to selectively catheterize the bilateral internal carotid arteries. A rotational 3-D acquisition was performed of the right internal carotid artery. 3-D reconstructions were performed on an off-line workstation. Each selected vessel underwent diagnostic imaging. ??At the conclusion of the procedure, the catheter was removed and hemostasis obtained via manual compression and Thrombix placement. Findings: Right internal carotid artery: The distal cervical and intracranial portions of the right internal carotid artery are normal. The right posterior communicating artery origin is normal. There is no residual flow within the previously treated right posterior communicating artery aneurysm. The carotid terminus as well as the right anterior cerebral and middle cerebral artery branches are normal. The venous phase is normal. Left internal carotid artery: ??The distal cervical and intracranial portions of the left internal carotid artery are normal. The carotid terminus as well as the left anterior cerebral and middle cerebral arteries are normal. The venous phase is normal. Conclusion: No residual flow within the previously treated right posterior communicating artery aneurysm. This procedure required 2.7 minutes of fluoroscopy time and 50 cc of contrast. Procedure Note 06/06/2011 Diagnostic cerebral angiogram History: Status post coiling of unruptured right posterior communicating artery aneurysm. Vessels selected: Right internal carotid artery Left internal carotid artery Hemostasis: Thrombix patch Informed consent: The risks, benefits and alternatives of this procedure were discussed with the patient. All of the patient's questions were answered. The patient gave both written and verbal consent for the procedure and conscious sedation. Technique: The patient was positioned supine and the groins were sterilely prepped and draped in usual fashion. Conscious sedation was achieved via IV versed and fentanyl under the continuous observation heart rate, blood pressure and oxygen saturation. Subsequently, the skin and subcutaneous soft tissues overlying the right common femoral artery were anesthetized with 1% buffered lidocaine. A 3 mm dermatotomy was then performed. Then, using Seldinger technique, a 4 Austrian JAIME catheter was directed over an angled Terumo Glidewire to selectively catheterize the bilateral internal carotid arteries. A rotational 3-D acquisition was performed of the right internal carotid artery. 3-D reconstructions were performed on an off-line workstation. Each selected vessel underwent diagnostic imaging. At the conclusion of the procedure, the catheter was removed and hemostasis obtained via manual compression and Thrombix placement. Findings: Right internal carotid artery: The distal cervical and intracranial portions of the right internal carotid artery are normal. The right posterior communicating artery origin is normal. There is no residual flow within the previously treated right posterior communicating artery aneurysm. The carotid terminus as well as the right anterior cerebral and middle cerebral artery branches are normal. The venous phase is normal. Left internal carotid artery: The distal cervical and intracranial portions of the left internal carotid artery are normal. The carotid terminus as well as the left anterior cerebral and middle cerebral arteries are normal. The venous phase is normal. Conclusion: No residual flow within the previously treated right posterior communicating artery aneurysm. This procedure required 2.7 minutes of fluoroscopy time and 50 cc of contrast. Selam Becker PA-C [facility] IR ORDERABLES documented in this encounter Visit Diagnoses Diagnosis Cerebral aneurysm, nonruptured- Primary documented in this encounter Care Teams Fur Clipper Relationship Specialty Start Date End Date Cooper Mojica MD [address] [place] [address] PCP - General 03/27/10 05/13/17 documented as of this encounter
--- OUTSIDE RECORDS SUMMARY | 2024-08-07 13:41 | XMS_ITS | Encounter Summary ---
Author Organization [facility] Address [address] [place] [address] Care Team Providers Care Emt P Name Role Phone Cooper Mojica MD Primary Care Provider [phone] Encounter Details Date Type Department Care Team (Latest Contact Info) Description 02/01/2015 9:39 EDT - 02/01/2015 23:59 EDT Hospital Encounter [facility] [address] [place] [address] Unknown, Provider, Discharge Disposition: Home or Self [...] Contact Info) Description 08/10/2024 16:00 EDT Appointment [facility] MRI [address] [place], [place] [address] 08/16/2024 14:00 EDT EMILIA [facility] OBGYN Ultrasound [address] [place] [phone] 08/29/2024 14:00 EDT Office Visit [facility] OBGYN [address] [place] [phone] Ness Vilchis MD [address] [place] [address], [address] [place] [phone] 08/31/2024 16:00 EDT Office Visit [facility] Orthopedics & Sport Medicine [address], [address] [place], [place] [phone] Reema Peoples PA-C [address] [facility] [address] [place] [address] 09/01/2024 9:30 EDT Office Visit [facility] Rheumatology [address] [place] [phone] Lin Grider MD [address] [place], [place] [address] [address] [place] [address] 11/08/2024 14:00 EST Office Visit [facility] Adult Hematology & Oncology [facility] [place] [address] Luz Maria Peter, DIRECTOR OF STUDENT LIFE [address] [facility], [facility] [address] [place] [address] 11/22/2024 10:15 EST Office Visit [facility] Family Medicine - [place] [address] [place] [address] Clint Miramontes MD [address] [place] [phone] documented as of this encounter Visit Diagnoses Not on filedocumented in this encounter Care Teams Emt P Relationship Specialty Start Date End Date Cooper Mojica MD [address] [place] [address] PCP - General 03/27/10 05/13/17 documented as of this encounter
--- OUTSIDE RECORDS SUMMARY | 2024-08-07 13:41 | XMS_ITS | Encounter Summary ---
Author Organization [facility] Address [address] [place] [address] Care Team Providers Care Fiscal Agent Name Role Phone Cooper Mojica MD Primary Care Provider [phone] Encounter Details Date Type Department Care Team (Late st Contact Info) Description 06/03/[address] [facility] [address], [place] [address] Gene Shine MD [address] [facility], [address] [place] [address] Social History Tobacco Use Types [...] Contact Info) Description 08/10/2024 16:00 EDT Appointment [facility] MRI [address] [place], [place] [address] 08/16/2024 14:00 EDT EMILIA [facility] OBGYN Ultrasound [address] [place], [place] [phone] 08/29/2024 14:00 EDT Office Visit [facility] OBGYN [address] [place] [address] Ness Vilchis MD [address] [place] [address], [address] [place] [phone] 08/31/2024 16:00 EDT Office Visit [facility] Orthopedics & Sport Medicine [address], [address] [place], [place] [phone] Reema Peoples PA-C [address] [facility] [address] [place], [place] [phone] 09/01/2024 9:30 EDT Office Visit [facility] Rheumatology [address] [place] [phone] Lin Grider MD [address] [place] [address] [address] [place] [address] 11/08/2024 14:00 EST Office Visit [facility] Adult Hematology & Oncology [facility] [place], [place] [phone] Luz Maria Peter, GABRIEL [address] [place] [address] [address] [place] [phone] 11/22/2024 10:15 EST Office Visit 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 Postoperative Diagnosis: Same Surgeons: Dr. Cecil Harmon and Dr. Jeferson Alvares Anesthesia: General endotracheal Interventional procedure: Endovascular coiling of a right posterior communicating artery aneurysm using balloon remodeling technique Catheterization of the following vessels: 1. Right common carotid artery 2. Right internal carotid artery 3. ??Left vertebral artery Angiographic interpretation of the following images: 1. Right cervical carotid artery angiograms 2. Right cerebral carotid artery angiograms 3. ??Left vertebral artery angiogram Followup angiograms: 1. ??11 separate right internal carotid artery angiograms after placement of coil prior to coil detachment. 2. ??Right internal artery angiogram in the control projection to exclude thromboembolic complication. Hemostasis: Starclose closure device Indications: The patient is a 60-year-old female with newly diagnosed lymphoma. 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 Endovascular therapy is requested for treatment of this aneurysm. Procedure in detail and findings: The risks and benefits of the procedure were explained to the patient and her family and informed consent was obtained and signed. The patient was brought to the neurointerventional suite and placed in the supine position upon the angiography table. General anesthesia was administered by anesthesiology. Both groins were prepped and draped in sterile fashion. A 19-gauge singlewall puncture needle was used to access the right common femoral artery. The needle was exchanged over a starter wire for a 6 Iranian sheath. Heparinized saline infusion was administered through the sheath and the catheter used during this procedure. A baseline ACT was obtained. A 5 Iranian Terumo angled glide catheter was advanced over [...] artery and an angiogram was performed in frontal and lateral projections. Right internal carotid artery cerebral angiogram shows satisfactory opacification of the internal carotid artery as well as the anterior and middle cerebral arteries. There is a large oval shaped aneurysm projecting inferolaterally from the internal carotid artery at the origin of the large posterior communicating artery. The catheter was attached to the automatic injector and a 3-dimensional angiogram was performed. Data from this angiogram were sent to the workstation for analysis. The aneurysm measures 5.9 x 8.7 millimeters and the large posterior communicating artery is seen to arise at its base. The distance between the distal wall of the internal carotid artery and the neck of aneurysm measures 4.3 mm. Working projections were calculated. The catheter was now advanced into the left vertebral artery and a left vertebral artery angiogram was performed in frontal and lateral projections. Left vertebral artery angiogram shows satisfactory opacification of the left vertebral artery as well as the basilar and posterior cerebral arteries. There is a small right P1 segment with opacification of the right posterior cerebral artery. Inflow of unopacified blood is seen. The left posterior inferior cerebellar artery, bilateral anterior/inferior and bilateral superior cerebellar arteries are normally visualized. The catheter was removed. The patient was administered heparin 4000 units intravenously at this time. A followup ACT was then obtained. Additional 1000 units boluses were given to maintain the ACT between 250-300 seconds. A 6 Iranian Neuropath guide catheter was advanced a Glidewire into the right common carotid artery. A roadmap was performed of the cervical circulation. The catheter was then advanced [id number] into the right internal carotid artery. The wire was removed. Angiograms were now performed to assess the working projections. ?? A Micrus 4 mm x 7 mm Ascent balloon was advanced over a Synchro 2 soft microwire into the internal carotid artery. Cerebral roadmap was performed at higher magnification. The balloon and wire were then advanced to the level of the posterior communicator artery aneurysm. The wire was removed. Test inflation was performed which shows the balloon to herniate into the aneurysm neck protecting the origin of the posterior communicating artery. An SL 10 microcatheter was advanced over the Synchro 2 microwire into the internal carotid artery. The wire was then used to direct the microcatheter into the posterior commuting artery aneurysm. The aneurysm was now embolized using the following coils: 7 mm x 15 cm GDC 10 360 standard 5 mm x 15 cm GDC 10 360 standard 4 mm x 8 cm GDC 10 360 soft 4 mm x 8 cm GDC 10 360 soft 4 mm x 8 cm GDC 10 360 soft 4 mm ??x 7 cm Trufill mini complex fill 4 mm ??x 7 cm Trufill mini complex fill 3.5 mm ??x 7.5 cm Trufill mini complex fill 3.5 mm ??x 5 cm Trufill mini complex fill 2 mm ??x 2 cm Trufill mini complex fill 2 mm ??x 2 cm Trufill mini complex fill 2 mm ??x 2 cm Trufill mini complex fill During the placement of each coil, the balloon was inflated in the neck of the aneurysm protect the posterior communicating artery origin. After placement, the balloon was deflated and the coil was watched for stability. A total of 11 follow up right internal carotid artery angiograms were performed after coil placement, prior to coil detachment. The coils remained stable and did not herniate into the origin of the posterior communicating artery. After the last coil was placed, the microcatheter was removed. ??The balloon catheter was removed. Final right internal carotid artery angiogram ??was performed in the control projection. ??This shows no evidence of thromboembolic complication. The posterior communicating artery and the right posterior cerebral artery continued to fill appropriately. The catheter was removed. After thorough review of the images, the sheath was removed and a Starclose closure device was used to achieve hemostasis. Dr. Cecil Harmon was present during the entire procedure and the interpretation of images. Impression: The patient has undergone endovascular coil embolization of a right posterior communicating artery aneurysm the using balloon remodeling technique.. There is no significant residual. ??There is no significant stenosis of the parent vessel. 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 Cecil Harmon and Dr. Jeferson Alvares Anesthesia: General endotracheal Interventional procedure: Endovascular coiling of a right posterior communicating artery aneurysm using balloon remodeling technique Catheterization of the following vessels: 1. Right common carotid artery 2. Right internal carotid artery 3. Left vertebral artery Angiographic interpretation of the following images: 1. Right cervical carotid artery angiograms 2. Right cerebral carotid artery angiograms 3. Left vertebral artery angiogram Followup angiograms: 1. 11 separate right internal carotid artery angiograms after placement of coil prior to coil detachment. 2. Right internal artery angiogram in the control projection to exclude thromboembolic complication. Hemostasis: Starclose closure device Indications: The patient is a 60-year-old female with newly diagnosed lymphoma. 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 Endovascular therapy is requested for treatment of this aneurysm. Procedure in detail and findings: The risks and benefits of the procedure were explained to the patient and her family and informed consent was obtained and signed. The patient was brought to the neurointerventional suite and placed in the supine position upon the angiography table. General anesthesia was administered by anesthesiology. Both groins were prepped and draped in sterile fashion. A 19-gauge singlewall puncture needle was used to access the right common femoral artery. The needle was exchanged over a starter wire for a 6 Iranian sheath. Heparinized saline infusion was administered through the sheath and the catheter used during this procedure. A baseline ACT was obtained. A 5 Iranian [employer] Technology[employer] angled glide catheter was advanced over a [...] artery and an angiogram was performed in frontal and lateral projections. Right internal carotid artery cerebral angiogram shows satisfactory opacification of the internal carotid artery as well as the anterior and middle cerebral arteries. There is a large oval shaped aneurysm projecting inferolaterally from the internal carotid artery at the origin of the large posterior communicating artery. The catheter was attached to the automatic injector and a 3-dimensional angiogram was performed. Data from this angiogram were sent to the workstation for analysis. The aneurysm measures 5.9 x 8.7 millimeters and the large posterior communicating artery is seen to arise at its base. The distance between the distal wall of the internal carotid artery and the neck of aneurysm measures 4.3 mm. Working projections were calculated. The catheter was now advanced into the left vertebral artery and a left vertebral artery angiogram was performed in frontal and lateral projections. Left vertebral artery angiogram shows satisfactory opacification of the left vertebral artery as well as the basilar and posterior cerebral arteries. There is a small right P1 segment with opacification of the right posterior cerebral artery. Inflow of unopacified blood is seen. The left posterior inferior cerebellar artery, bilateral anterior/inferior and bilateral superior cerebellar arteries are normally visualized. The catheter was removed. The patient was administered heparin 4000 units intravenously at this time. A followup ACT was then obtained. Additional 1000 units boluses were given to maintain the ACT between 250-300 seconds. A 6 Iranian Neuropath guide catheter was advanced a Glidewire into the right common carotid artery. A roadmap was performed of the cervical circulation. The catheter was then advanced [id number] into the right internal carotid artery. The wire was removed. Angiograms were now performed to assess the working projections. A Micrus 4 mm x 7 mm Ascent balloon was advanced over a Synchro 2 soft microwire into the internal carotid artery. Cerebral roadmap was performed at higher magnification. The balloon and wire were then advanced to the level of the posterior communicator artery aneurysm. The wire was removed. Test inflation was performed which shows the balloon to herniate into the aneurysm neck protecting the origin of the posterior communicating artery. An SL 10 microcatheter was advanced over the Synchro 2 microwire into the internal carotid artery. The wire was then used to direct the microcatheter into the posterior commuting artery aneurysm. The aneurysm was now embolized using the following coils: 7 mm x 15 cm GDC 10 360 standard 5 mm x 15 cm GDC 10 360 standard 4 mm x 8 cm GDC 10 360 soft 4 mm x 8 cm GDC 10 360 soft 4 mm x 8 cm GDC 10 360 soft 4 mm x 7 cm Trufill mini complex fill 4 mm x 7 cm Trufill mini complex fill 3.5 mm x 7.5 cm Trufill mini complex fill 3.5 mm x 5 cm Trufill mini complex fill 2 mm x 2 cm Trufill mini complex fill 2 mm x 2 cm Trufill mini complex fill 2 mm x 2 cm Trufill mini complex fill During the placement of each coil, the balloon was inflated in the neck of the aneurysm protect the posterior communicating artery origin. After placement, the balloon was deflated and the coil was watched for stability. A total of 11 follow up right internal carotid artery angiograms were performed after coil placement, prior to coil detachment. The coils remained stable and did not herniate into the origin of the posterior communicating artery. After the last coil was placed, the microcatheter was removed. The balloon catheter was removed. Final right internal carotid artery angiogram was performed in the control projection. This shows no evidence of thromboembolic complication. The posterior communicating artery and the right posterior cerebral artery continued to fill appropriately. The catheter was removed. After thorough review of the images, the sheath was removed and a Starclose closure device was used to achieve hemostasis. Dr. Cecil Harmon was present during the entire procedure and the interpretation of images. Impression: The patient has undergone endovascular coil embolization of a right posterior communicating artery aneurysm the using balloon remodeling technique.. There is no significant residual. There is no significant stenosis of the parent vessel. Gene Shine MD IMG IR ORDERABLES documented in this encounter Visit Diagnoses Not on filedocumented in this encounter Care Teams Fiscal Agent Relationship Specialty Start Date End Date Cooper Mojica MD [address] [place] [id number] PCP - General 03/27/10 05/13/17 documented as of this encounter
--- OUTSIDE RECORDS SUMMARY | 2024-08-07 13:41 | XMS_ITS | Encounter Summary ---
Author Organization [facility] Address [address] [place] [address] Care Team Providers Care Choirmaster Name Role Phone Cooper Mojica MD Primary Care Provider [phone] Edison Miramontes DO Primary Care Provider [phone] Clint Miramontes MD Primary Care Provider [phone] Encounter Details Date Type Department Care Team (Late st Contact Info) Description 03/14/2011 Historical Results Only [facility] - Main [place] [address] [place] [address] Jose Virgen MD [facility] [address] [place] [address] Social History Tobacco Use Types [...] Appointment [facility] MRI [address] [place] [address] 08/16/2024 14:00 EDT EMILIA [facility] OBGYN Ultrasound [address] [place], [place] [address] 08/29/2024 14:00 EDT Office Visit [facility] OBGYN [address] [place] [address] Ness Vilchis MD 130 [facility], [address] [place] [phone] 08/31/2024 16:00 EDT Office Visit [facility] Orthopedics & Sport Medicine [address], [address] [place] [address] Reema Peoples PA-C [address] [facility] [address] [place], [place] [phone] 09/01/2024 9:30 EDT Office Visit [facility] Rheumatology [address] [place], [place] [address] Lin Grider MD [address] [place] [address] [address] [place] [address] 11/08/2024 14:00 EST Office Visit [facility] Adult Hematology & Oncology [address] [place] [address] Luz Maria Peter NP 130 [facility] [address] [place] [address] 11/22/2024 10:15 EST Office Visit [facility] Family Medicine - [place] [address] [place], [place] [phone] Clint Miramontes MD [address] [place] [phone] documented as of this encounter Procedures Procedure Name Priority Date/Time Associated Diagnosis Comments SURGICAL PATHOLOGY Routine 03/14/2011 documented in this encounter Results * SURGICAL PATHOLOGY (03/14/2011) 03/14/2011 03/14/2011 13: 55 EDT Narrative [facility] - 03/17/2011 13:12 EDT ----- ------- Name: DEANA COY ?: 48 ?Age/Sex: 69/F ?Unit#: [id number] ? Loc: END ? Status: DEP CLI ?? Reg Date: 03/14/11 ? Pt.Phone Number: ? ----- ------- Specimen: [id number] ? STATUS: SOUT ?Spec Date:03/14/11 ? Physician Copies: ?Jose Virgen MD ? Tissues: A ?? Gastrointestinal Tract (RECTOSIGMOID COLON) ?Cooper Mojica MD ? CPT: 34635 ?? Units: ??1 ?FINAL DIAGNOSIS ? Recto-sigmoid colon, polyp, biopsy; ? - Tubular adenoma. ? GROSS DESCRIPTION ? Received in [place]'s labeled with the patient's name and recto-sigmoid polyp at ? 17 cm is a 0.4 cm mucosal fragment, e.s. 1. CP ?? PREOP DX/CLINICAL HISTORY ?Screening colonoscopy. Signed ____(signature on file)____ Maddi Zacarias M.D. 03/17/11 By the signature above, the attending physician certifies that he/she has personally conducted a gross and/or microscopic examination of the described specimens and rendered or confirmed the above diagnosis. Test Performed by [facility], [address] [place] [address] Frame Sample And Pattern Supervisor: Maddi Zacarias MD PHD ----- ------- Jose Virgen MD PATHOLOGY ORDERABLES [facility] documented in this encounter Visit Diagnoses Not on filedocumented in this encounter Care Teams Choirmaster Relationship Specialty Start Date End Date Cooper Mojica MD [address] [place] [address] PCP - General 03/27/10 05/13/17 Edison Miramontes DO [address] [place] [id number] PCP - General 05/14/17 08/22/19 Clint Miramontes MD [address] [place] [phone] PCP - General 08/23/19 documented as of this encounter
--- OUTSIDE RECORDS SUMMARY | 2024-08-07 13:41 | XMS_ITS | Encounter Summary ---
Author Organization [facility] Address [address] [place] [address] Care Team Providers Care Evaluation Advisor Name Role Phone Cooper Mojica MD Primary Care Provider [phone] Encounter Details Date Type Department Care Team (Latest Contact Info) Description 05/29/2015 7:12 EDT - 05/29/2015 23:59 EDT Hospital Encounter [facility] [address] [place] [address] Unknown, Provider, Discharge Disposition: Home or Self [...] Code Departure Means Destination Home or Self Shelter documented in this encounter Plan of Treatment Upcoming Encounters Date Type Department Care Team (Late st Contact Info) Description 08/10/2024 16:00 EDT Appointment [facility] MRI [address] [place], [place] [address] 08/16/2024 14:00 EDT EMILIA [facility] OBGYN Ultrasound [address] [place] [phone] 08/29/2024 14:00 EDT Office Visit [facility] OBGYN [address] [place] [phone] Ness Vilchis MD [address] [place] [address], [address] [place] [phone] 08/31/2024 16:00 EDT Office Visit [facility] Orthopedics & Sport Medicine [address], [address] [place], [place] [phone] Reema Peoples PA-C 1311 [facility] [address] [place] [address] 09/01/2024 9:30 EDT Office Visit [facility] Rheumatology [address] [place] [phone] Lin Grider MD [address] [place], [place] [address] [address] [place] [address] 11/08/2024 14:00 EST Office Visit [facility] Adult Hematology & Oncology [facility] [place] [address] Luz Maria Peter, HEALTH SCIENCES PROGRAM COORDINATOR [address] [facility] [address] [place] [address] 11/22/2024 10:15 EST Office Visit [facility] Family Medicine - [place] [address] [place] [address] Clint Miramontes MD [address] [place] [phone] documented as of this encounter Visit Diagnoses Not on filedocumented in this encounter Care Teams Evaluation Advisor Relationship Specialty Start Date End Date Cooper Mojica MD [address] [place] [address] PCP - General 03/27/10 05/13/17 documented as of this encounter
--- OUTSIDE RECORDS SUMMARY | 2024-08-07 13:41 | XMS_ITS | Encounter Summary ---
Author Organization [facility] Address [address] [place] [address] Care Team Providers Care Industrial Health Engineer Name Role Phone Cooper Mojica MD Primary Care Provider [phone] Encounter Details Date Type Department Care Team (Late st Contact Info) Description 08/01/2015 Documentation Visit [facility] Interventional Radiology [address] [address] Selam Becker PA-C [address] [place] [address], [address] [place] [address] Social History Tobacco Use Types [...] on file documented as of this encounter Progress Notes * Selam Becker PA-C - 08/01/2015 1108 EDT Images from the original note were not included. [facility] Interventional Radiology [address], 3rd Floor Ms: [id number] [facility] [address] Dept Dept July 31, 2015 Cooper Mojica [address] [facility] [address] Cooper Mojica MD [address] [facility] [address] Patient: Mel Ramirez MR Number: [id number] Date of : 1950 Date of Visit: 07/31/[address] Mojica, Mel Ramirez underwent conventional cerebral angiography with Dr. 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 Today's angiogram revealed a stable coil mass within the aneurysm without residual flow or recanalization. The parent vessel is patent. At this point, will arrange for Mel to return in 2 years for an MRA of the head and office visitwith us. She should remain on a daily aspirin--she is currently taking 325 mg daily without adverseeffect. This may be reduced to 81 mg in the future if necessary. Sincerely, Selam Becker PA-C documented in this encounter Plan of Treatment Upcoming Encounters Date Type Department Care Team (Late st Contact Info) Description 08/10/2024 16:00 EDT Appointment [facility] MRI [address], [place] [id number] 08/16/2024 14:00 EDT EMILIA [facility] OBGYN Ultrasound [address] [place] [address] 08/29/2024 14:00 EDT Office Visit [facility] OBGYN [address] [place] [address] Ness Vilchis MD 130 [facility] [address] [place] [address] 08/31/2024 16:00 EDT Office Visit [facility] Orthopedics & Sport Medicine [address] [place] [address] Reema Peoples PA-C [address] [facility] [address] [place] [address] 09/01/2024 9:30 EDT Office Visit [facility] Rheumatology [address] [facility], [place] [phone] Lin Grider MD 130 [facility] [address] [place] [address] 11/08/2024 14:00 EST Office Visit [facility] Adult Hematology & Oncology [address] [place] [address], [place] [address] Luz Maria Peter NP 130 [facility], [facility] [address] [place] [address] 11/22/2024 10:15 EST Office Visit [facility] Family Medicine - [place] [address] [place] [address] Clint Miramontes MD [address] [place] [phone] documented as of this encounter Visit Diagnoses Not on filedocumented in this encounter Care Teams Industrial Health Engineer Relationship Specialty Start Date End Date Cooper Mojica MD [address] [place] [address] PCP - General 03/27/10 05/13/17 documented as of this encounter
--- OUTSIDE RECORDS SUMMARY | 2024-08-07 13:41 | XMS_ITS | Encounter Summary ---
Author Organization [facility] Address [address] [place] [address] Care Team Providers Care Senior Unix Administrator Name Role Phone Cooper Mojica MD Primary Care Provider [phone] Edison Miramontes DO Primary Care Provider [phone] Clint Miramontes MD Primary Care Provider [phone] Encounter Details Date Type Department Care Team (Late st Contact Info) Description 02/02/2015 Historical Results Only [facility] Radiology Results [address] [place] [address] Cooper Mojica MD [address] [place] [address] Social History Tobacco Use Types Packs/Day [...] Contact Info) Description 08/10/2024 16:00 EDT Appointment [facility] MRI [address] [place] [address] 08/16/2024 14:00 EDT EMILIA [facility] OBGYN Ultrasound [address] [place], [place] [address] 08/29/2024 14:00 EDT Office Visit [facility] OBGYN 130 [place] [address] Ness Vilchis MD 130 [facility], [address] [place] [phone] 08/31/2024 16:00 EDT Office Visit [facility] Orthopedics & Sport Medicine [address] [place] [address] Reema Peoples PA-C [address] [facility] [address] [place], [place] [phone] 09/01/2024 9:30 EDT Office Visit [facility] Rheumatology [address] [place], [place] [phone] Lin Grider MD [address] [place] [address] [address] [place] [address] 11/08/2024 14:00 EST Office Visit [facility] Adult Hematology & Oncology [address] [place] [address], [place] [address] Luz Maria Peter, GABRIEL 130 [facility] [address] [place] [address] 11/22/2024 10:15 EST Office Visit [facility] Family Medicine - [place] [address] [place] [address] Clint Miramontes MD [address] [place] [phone] documented as of this encounter Procedures Procedure Name Priority Date/Time Associated Diagnosis Comments XR HIP RIGHT 2-3 VIEWS, OPTIONAL PELVIS 02/02/2015 20:57 EDT documented in this encounter Results * XR HIP RIGHT 2-3 VIEWS, OPTIONAL PELVIS (02/02/2015 20:57 EDT) Anatomical Region Laterality Modality Lower Extremities Right Other 02/02/2015 20:5 7 EDT Narrative 02/02/2015 21:01 EDT ? EXAM: RADIOLOGY/HIP-RIGHT-2 VIEW ?EX. D/ (1606) ? CLINICAL INFORMATION: ? RIGHT HIP PAIN ? Indication: Right hip pain. ? Comparison: Right hip radiograph 2005. ? Technique: AP and lateral views. ? Findings: There are minimal degenerative changes within the right hip ? joint. Bone density is normal. No fracture is seen. There are mild ? degenerative changes within the right sacroiliac joint and pubic ? symphysis. Incidental note is made of a calcified uterine fibroid. ? Impression: ? 1. Minimal degenerative joint disease. ? REPORT SIGNED IN OTHER VENDOR SYSTEM 02/02/2015 ?Reported By: Bharath Patel MD ? CC: ? Transcribed Date/Time: 02/02/2015 (210) ? Railroad Track Repair Supervisor: ? Printed Date/Time: 04/05/2019 (5013) ? PAGE 1 ? Signed Report ? Procedure Note Bharath Patel MD - 09/06/2019 EXAM: RADIOLOGY/HIP-RIGHT-2 VIEW EX. D/ (1603) CLINICAL INFORMATION: RIGHT HIP PAIN Indication: Right hip pain. Comparison: Right hip radiograph 2005. Technique: AP and lateral views. Findings: There are minimal degenerative changes within the righthip joint. Bone density is normal. No fracture is seen. There are mild degenerative changes within the right sacroiliac joint and pubic symphysis. Incidental note is made of a calcified uterine fibroid. Impression: 1. Minimal degenerative joint disease. REPORT SIGNED IN OTHER VENDOR SYSTEM 02/02/2015 Reported By: Bharath Patel MD CC: Transcribed Date/Time: 02/02/2015 (2102) Railroad Track Repair Supervisor: Printed Date/Time: 04/05/2019 (4240) PAGE 1 Signed Report Cooper Mojica MD IMG DIAGNOSTIC IMAGI NG ORDERABLES documented in this encounter Visit Diagnoses Not on filedocumented in this encounter Care Teams Senior Unix Administrator Relationship Specialty Start Date End Date Cooper Mojica MD [address] [place] [address] PCP - General 03/27/10 05/13/17 Edison Miramontes DO [address] [place] [address] PCP - General 05/14/17 08/22/19 Clint Miramontes MD [address] [place] [phone] PCP - General 08/23/19 documented as of this encounter
--- OUTSIDE RECORDS SUMMARY | 2024-08-07 13:41 | XMS_ITS | Encounter Summary ---
Author Organization [facility] Address [address] [place] [address] Care Team Providers Care Mattress Finisher Name Role Phone Cooper Mojica MD Primary Care Provider [phone] Edison Miramontes DO Primary Care Provider [phone] Encounter Details Date Type Department Care Team (Late st Contact Info) Description 05/29/2015 Historical Results Only [facility] Radiology Results [address] [place], [place] [address] Clint Lambert MD 130 [facility] [place], [place] [phone] Social History Tobacco Use Types Packs/Day Years [...] EDT Appointment [facility] MRI [address] [place], [place] [id number] 08/16/2024 14:00 EDT EMILIA [facility] OBGYN Ultrasound [address] [place] [address] 08/29/2024 14:00 EDT Office Visit [facility] OBGYN [address] [place] [address] Ness Vilchis MD 130 [facility], [address] [place] [phone] 08/31/2024 16:00 EDT Office Visit [facility] Orthopedics & Sport Medicine [address], [address] [place], [place] [phone] Reema Peoples PA-C [address] [facility] [address] [place], [place] [phone] 09/01/2024 9:30 EDT Office Visit [facility] Rheumatology [address] [place], [place] [phone] Lin Grider MD [address] [place] [address] [address] [place] [address] 11/08/2024 14:00 EST Office Visit [facility] Adult Hematology & Oncology [address] [place] [address], [place] [phone] Luz Maria Peter, GABRIEL 130 [facility] [address] [place] [address] 11/22/2024 10:15 EST Office Visit [facility] Family Medicine - [place] [address] [place] [address] Clint Miramontes MD [address] [place] [phone] documented as of this encounter Procedures Procedure Name Priority Date/Time Associated Diagnosis Comments CT CHEST W CONTRAST 05/29/2015 1 6:[address] ABDOMEN PELVIS W CONTRAST 05/29/2015 16:34 EDT documented in this encounter Results * CT ABDOMEN PELVIS W CONTRAST (05/29/2015 16:34 EDT) Anatomical Region Laterality Modality Other 05/29/2015 16:3 4 EDT Narrative 05/29/2015 16:49 EDT ? EXAM: CAT SCAN/ABDOMEN PELVIS WITH CONTRA EX. D/ (1618) ? CLINICAL INFORMATION: ? H/O LYMPHOMA, ? DISEASE STATUS ? INDICATION: History of lymphoma. ? TECHNIQUE: Axial enhanced imaging of the abdomen and pelvis was ? obtained. Multiplanar reconstruction was performed. ? COMPARISON: 10/28/2013. ? FINDINGS: ? CT CHEST: ? The tiny calcified right lung pulmonary nodules are ? again seen, consistent with granulomata. This includes a tiny focus ? in the posterior right lower lobe and medially at the right lung ? apex. No new focal pulmonary opacities are seen. No mediastinal, ? hilar or axillary adenopathy is detected. ??No pneumothorax is seen. ? No pulmonary effusion is noted. ??The visualized portions of the ? liver, spleen, pancreas and adrenal glands are unremarkable. ? CT ABDOMEN: ? The liver is normal in appearance. No focal hepatic ? lesion is seen. There is a 5 mm cyst in the body of the pancreas, ? unchanged from 2013. The pancreas is otherwise unremarkable. No ? peripancreatic inflammation is noted. The spleen is normal in size. ? No focal splenic lesion is seen. The adrenal glands are symmetric and ? normal in appearance. The kidneys are normal in appearance. Mild ? right ureterectasis is again seen and mild right pelvocaliectasis, ? unchanged. No focal renal abnormalities detected. No abnormally ? enlarged lymph nodes are seen within the abdomen or pelvis. ? CT PELVIS: ? No free fluid is seen in the deep pelvis. No pelvic or ? inguinal adenopathy is detected. The bony structures of the pelvis ? and lumbar spine demonstrate no acute abnormality. There is a ? calcified uterine fibroid. The visualized portions of the appendix ? are unremarkable. Stable subcentimeter scattered mesenteric lymph ? nodes are noted. ? IMPRESSION: ? 1. Stable exam. No new adenopathy within the chest abdomen or pelvis ? detected. ? REPORT SIGNED IN OTHER VENDOR SYSTEM 05/29/2015 ?Reported By: Reji Carroll MD ? CC: ? Transcribed Date/Time: 05/29/2015 (5039) ? Correctional Medicine Physician: ? Printed Date/Time: 04/11/2019 (4730) ? PAGE 1 ? Signed Report ? Procedure Note Reji Carroll MD - 09/06/2019 EXAM: CAT SCAN/ABDOMEN PELVIS WITH CONTRA EX. D/ (1618) CLINICAL INFORMATION: H/O LYMPHOMA, ? DISEASE STATUS INDICATION: History of lymphoma. TECHNIQUE: Axial enhanced imaging of the abdomen and pelvis was obtained. Multiplanar reconstruction was performed. COMPARISON: 10/28/2013. FINDINGS: CT CHEST: The tiny calcified right lung pulmonary nodules are again seen, consistent with granulomata. This includes a tiny focus in the posterior right lower lobe and medially at the right lung apex. No new focal pulmonary opacities are seen. No mediastinal, hilar or axillary adenopathy is detected. No pneumothorax is seen. No pulmonary effusion is noted. The visualized portions of the liver, spleen, pancreas and adrenal glands are unremarkable. CT ABDOMEN: The liver is normal in appearance. No focal hepatic lesion is seen. There is a 5 mm cyst in the body of the pancreas, unchanged from 2013. The pancreas is otherwise unremarkable. No peripancreatic inflammation is noted. The spleen is normal in size. No focal splenic lesion is seen. The adrenal glands are symmetricand normal in appearance. The kidneys are normal in appearance. Mild right ureterectasis is again seen and mild right pelvocaliectasis, unchanged. No focal renal abnormalities detected. No abnormally enlarged lymph nodes are seen within the abdomen or pelvis. CT PELVIS: No free fluid is seen in the deep pelvis. No pelvicor inguinal adenopathy is detected. The bony structures of the pelvis and lumbar spine demonstrate no acute abnormality. There is a calcified uterine fibroid. The visualized portions of the appendix are unremarkable. Stable subcentimeter scattered mesenteric lymph nodes are noted. IMPRESSION: 1. Stable exam. No new adenopathy within the chest abdomen orpelvis detected. REPORT SIGNED IN OTHER VENDOR SYSTEM 05/29/2015 Reported By: Reji Carroll MD CC: Transcribed Date/Time: 05/29/2015 (9005) Correctional Medicine Physician: Printed Date/Time: 04/11/2019 (7625) PAGE 1 Signed Report Clint Lambert MD IMG CT ORDERABLES * CT CHEST W CONTRAST (05/29/2015 16:34 EDT) Anatomical Region Laterality Modality Chest Other 05/29/2015 16:3 4 EDT Narrative 05/29/2015 16:49 EDT ? EXAM: CAT SCAN/CHEST WITH CONTRAST ?EX. D/ (1618) ? CLINICAL INFORMATION: ? H/O LYMPHOMA, ? DISEASE STATUS ? INDICATION: History of lymphoma. ? TECHNIQUE: Axial enhanced imaging of the abdomen and pelvis was ? obtained. Multiplanar reconstruction was performed. ? COMPARISON: 10/28/2013. ? FINDINGS: ? CT CHEST: ? The tiny calcified right lung pulmonary nodules are ? again seen, consistent with granulomata. This includes a tiny focus ? in the posterior right lower lobe and medially at the right lung ? apex. No new focal pulmonary opacities are seen. No mediastinal, ? hilar or axillary adenopathy is detected. ??No pneumothorax is seen. ? No pulmonary effusion is noted. ??The visualized portions of the ? liver, spleen, pancreas and adrenal glands are unremarkable. ? CT ABDOMEN: ? The liver is normal in appearance. No focal hepatic ? lesion is seen. There is a 5 mm cyst in the body of the pancreas, ? unchanged from 2013. The pancreas is otherwise unremarkable. No ? peripancreatic inflammation is noted. The spleen is normal in size. ? No focal splenic lesion is seen. The adrenal glands are symmetric and ? normal in appearance. The kidneys are normal in appearance. Mild ? right ureterectasis is again seen and mild right pelvocaliectasis, ? unchanged. No focal renal abnormalities detected. No abnormally ? enlarged lymph nodes are seen within the abdomen or pelvis. ? CT PELVIS: ? No free fluid is seen in the deep pelvis. No pelvic or ? inguinal adenopathy is detected. The bony structures of the pelvis ? and lumbar spine demonstrate no acute abnormality. There is a ? calcified uterine fibroid. The visualized portions of the appendix ? are unremarkable. Stable subcentimeter scattered mesenteric lymph ? nodes are noted. ? IMPRESSION: ? 1. Stable exam. No new adenopathy within the chest abdomen or pelvis ? detected. ? REPORT SIGNED IN OTHER VENDOR SYSTEM 05/29/2015 ?Reported By: Reji Carroll MD ? CC: ? Transcribed Date/Time: 05/29/2015 (1649) ? Correctional Medicine Physician: [email or web address] ? Printed Date/Time: 04/11/2019 (4147) ? PAGE 1 ? Signed Report ? Procedure Note Reji Carroll MD - 09/06/2019 EXAM: CAT SCAN/CHEST WITH CONTRAST EX. D/ (1618) CLINICAL INFORMATION: H/O LYMPHOMA, ? DISEASE STATUS INDICATION: History of lymphoma. TECHNIQUE: Axial enhanced imaging of the abdomen and pelvis was obtained. Multiplanar reconstruction was performed. COMPARISON: 10/28/2013. FINDINGS: CT CHEST: The tiny calcified right lung pulmonary nodules are again seen, consistent with granulomata. This includes a tiny focus in the posterior right lower lobe and medially at the right lung apex. No new focal pulmonary opacities are seen. No mediastinal, hilar or axillary adenopathy is detected. No pneumothorax is seen. No pulmonary effusion is noted. The visualized portions of the liver, spleen, pancreas and adrenal glands are unremarkable. CT ABDOMEN: The liver is normal in appearance. No focal hepatic lesion is seen. There is a 5 mm cyst in the body of the pancreas, unchanged from 2012. The pancreas is otherwise unremarkable. No peripancreatic inflammation is noted. The spleen is normal in size. No focal splenic lesion is seen. The adrenal glands are symmetricand normal in appearance. The kidneys are normal in appearance. Mild right ureterectasis is again seen and mild right pelvocaliectasis, unchanged. No focal renal abnormalities detected. No abnormally enlarged lymph nodes are seen within the abdomen or pelvis. CT PELVIS: No free fluid is seen in the deep pelvis. No pelvicor inguinal adenopathy is detected. The bony structures of the pelvis and lumbar spine demonstrate no acute abnormality. There is a calcified uterine fibroid. The visualized portions of the appendix are unremarkable. Stable subcentimeter scattered mesenteric lymph nodes are noted. IMPRESSION: 1. Stable exam. No new adenopathy within the chest abdomen orpelvis detected. REPORT SIGNED IN OTHER VENDOR SYSTEM 05/29/2015 Reported By: Reji Carroll MD CC: Transcribed Date/Time: 05/29/2015 (4861) Correctional Medicine Physician: Printed Date/Time: 04/11/2019 (5047) PAGE 1 Signed Report Clint Lambert MD IMG CT ORDERABLES documented in this encounter Visit Diagnoses Not on filedocumented in this encounter Care Teams Mattress Finisher Relationship Specialty Start Date End Date Cooper Mojica MD [address] [place] [address] PCP - General 03/27/10 05/13/17 Edison Miramontes DO [address] [place] [address] PCP - General 05/14/17 08/22/19 documented as of this encounter
--- OUTSIDE RECORDS SUMMARY | 2024-08-07 13:41 | XMS_ITS | Encounter Summary ---
Author Organization [facility] Address [address] [place] [address] Care Team Providers Care Virtualization Consultant Name Role Phone Cooper Mojica MD Primary Care Provider [phone] Encounter Details Date Type Department Care Team (Late st Contact Info) Description 09/18/2010 Results Only [facility] Interventional Radiology - [address] [address] Jeferson Alvares, DO [address] [place] [address] Social History Tobacco Use Types Packs/Day Years [...] Appointment [facility] MRI [address] [place], [place] [phone] 08/16/2024 14:00 EDT EMILIA [facility] OBGYN Ultrasound [address] [place] [address] 08/29/2024 14:00 EDT Office Visit [facility] OBGYN [address] [place], [place] [address] Ness Vilchis MD 130 [facility], [address] [place] [phone] 08/31/2024 16:00 EDT Office Visit [facility] Orthopedics & Sport Medicine [address], [address] [place], [place] [phone] Reema Peoples PA-C [address] [facility] [address] [place], [place] [phone] 09/01/2024 9:30 EDT Office Visit [facility] Rheumatology [address] [place] [phone] Lin Grider MD [address] [place] [address] [address] [place] [address] 11/08/2024 14:00 EST Office Visit [facility] Adult Hematology & Oncology [facility], [place] [phone] Luz Maria Peter, GABRIEL [address] [place] [address] [address] [place] [address] 11/22/2024 10:15 EST Office Visit [facility] Family Medicine - [place] [address] [place] [address] Clint Miramontes MD [address] [place] [phone] documented as of this encounter Procedures Procedure Name Priority Date/Time Associated Diagnosis Comments MR ANGIO HEAD WO CONTRAST 09/12/2010 8:30 EST documented in this encounter Results * MR ANGIO HEAD WO CONTRAST (09/12/2010 8:30 EST) Anatomical Region Laterality Modality Other 09/12/2010 8:30 EST 09/20/2010 9:04 EST Narrative 09/20/2010 9:04 EST Magnetic Resonance Angiogram of the [place] of Rea History: 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 Findings: There is a minimal amount of flow within the previously treated right posterior communicating artery aneurysm. This flow is along the ventral aspect of the coil mesh just lateral to the aneurysm neck. No significant flow within the interstices nor within the dome is identified. No additional aneurysm is identified. The distal vasculature is normal. The visualized portions of the brain parenchyma are normal. Conclusion: There is a minimal amount of residual flow within the previously treated right posterior communicating artery aneurysm. 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 Findings: There is a minimal amount of flow within the previously treated right posterior communicating artery aneurysm. This flow is along the ventral aspect of the coil mesh just lateral to the aneurysm neck. No significant flow within the interstices nor within the dome is identified. No additional aneurysm is identified. The distal vasculature is normal. The visualized portions of the brain parenchyma are normal. Conclusion: There is a minimal amount of residual flow within the previously treated right posterior communicating artery aneurysm. Jeferson Alvares DO [facility] MRI ORDERABLES documented in this encounter Visit Diagnoses Not on filedocumented in this encounter Care Teams Virtualization Consultant Relationship Specialty Start Date End Date Cooper Mojica MD [address] [place] [address] PCP - General 03/27/10 05/13/17 documented as of this encounter
--- OUTSIDE RECORDS SUMMARY | 2024-08-07 13:42 | XMS_ITS | Encounter Summary ---
Author Organization [facility] Address [address] [place] [address] Care Team Providers Care Manager Of Clinical Name Role Phone Cooper Mojica MD Primary Care Provider [phone] Encounter Details Date Type Department Care Team (Late st Contact Info) Description 04/17/2010 Abstract [facility] ENT - [place] [address] [place] [address] Cooper Mojica MD [address] [place], [place] [address] Social History Tobacco Use Types Packs/Day Years Used Date Smoking Tobacco: Never Assessed Sex and Gender Information Value Date Recorded Sex Assigned at Not on file Gender Identity Female 03/09/2020 13:07 EDT Sexual Orientation Not on file documented as of this encounter Plan of Treatment Upcoming Encounters Date Type Department Care Team (Late st Contact Info) Description 08/10/2024 16:00 EDT Appointment [facility] MRI [address] [place] [address] 08/16/2024 14:00 EDT EMILIA [facility] OBGYN Ultrasound [address] [place], [place] [phone] 08/29/2024 14:00 EDT Office Visit [facility] OBGYN [address] [place], [place] [phone] Ness Vlichis MD 130 [facility], [address] [place] [phone] 08/31/2024 16:00 EDT Office Visit [facility] Orthopedics & Sport Medicine [address], [address] [place], [place] [address] Reema Peoples PA-C [address] [facility] [address] [place], [place] [address] 09/01/2024 9:30 EDT Office Visit [facility] Rheumatology [address] [place], [place] [phone] Lin Grider MD 130 [facility] [address] [place] [address] 11/08/2024 14:00 EST Office Visit [facility] Adult Hematology & Oncology [address] [place] [address], [place] [phone] Luz Maria Peter NP 130 [facility], [facility] [address] [place] [address] 11/22/2024 10:15 EST Office Visit [facility] Family Medicine - [place] [address] [place] [address] Clint Miramontes MD [address] [place] [phone] documented as of this encounter Visit Diagnoses Not on filedocumented in this encounter Historical Medications * This list may reflect changes made after this encounter. Medication Sig Dispensed Refills Start Date End Date BUTALBITAL/ASPIRIN/CAFFEI NE (BUTALBITAL COMPOUND ORAL) Take 1-2 Tabs by mouth as needed. 11/05/2016 LORAZEPAM ORAL Take 1 mg by mouth at bedtime. 09/12/2010 09/19/2019 MULTIVITAMINS (MULTIVITAMIN ORAL) Take 1 Tab by mouth daily. 09/19/2019 rosuvastatin (CRESTOR) 10 mg tablet Take 10 mg by mouth at bedtime. 06/02/2013 added in this encounter Care Teams Manager Of Clinical Relationship Specialty Start Date End Date Cooper Mojica MD [address] [place] [address] PCP - General 03/27/10 05/13/17 documented as of this encounter
--- OUTSIDE RECORDS SUMMARY | 2024-08-07 13:42 | XMS_ITS | Encounter Summary ---
Author Organization [facility] Address [address] [place] [address] Care Team Providers Care Industrial Relations Representative Name Role Phone Cooper Mojica MD Primary Care Provider [phone] Edison Miramonets DO Primary Care Provider [phone] Clint Miramontes MD Primary Care Provider [phone] Encounter Details Date Type Department Care Team (Late st Contact Info) Description 03/28/2010 Historical Results Only [facility] Lab - Main [place] [address] [place] [address] Benjamín Marc MD [address] [place] [phone] Social History Tobacco Use Types Packs/Day Years [...] [facility] MRI [address] [place], [place] [phone] 08/16/2024 14:00 EDT EMILIA [facility] OBGYN Ultrasound [address] [place] [address] 08/29/2024 14:00 EDT Office Visit [facility] OBGYN [address] [place] [address] Ness Vilchis MD [address] [place] [address], [address] [place] [phone] 08/31/2024 16:00 EDT Office Visit [facility] Orthopedics & Sport Medicine [address], [address] [place], [place] [phone] Reema Peoples PA-C 1311 [facility] [address] [place], [place] [phone] 09/01/2024 9:30 EDT Office Visit [facility] Rheumatology [address] [place] [phone] Lin Grider MD [address] [place] [address] [address] [place] [address] 11/08/2024 14:00 EST Office Visit [facility] Adult Hematology & Oncology [address] [place] [phone] Luz Maria Peter, GABRIEL [address] [place] [address] [address] [place] [phone] 11/22/2024 10:15 EST Office Visit [facility] Family Medicine - [place] [address] [place] [address] Clint Miramontes MD [address] [place] [phone] documented as of this encounter Procedures Procedure Name Priority Date/Time Associated Diagnosis Comments CYTOLOGY (NON-GYNECOLOGIC INCLUDING FLUIDS AND FINE NEEDLE ASPIRATION)- ORDER ONLY Routine 03/28/2010 documented in this encounter Results * CYTOLOGY (NON-GYNECOLOGIC INCLUDING FLUIDS AND FINE NEEDLE ASPIRATION)- ORDER ONLY (03/28/2010) 03/28/2010 03/29/2010 9:4 2 EDT Narrative [facility] - 04/03/2010 12:05 EDT ----- ------- Name: DEANA COY ?: [birth year] ?Age/Sex: 69/F ?Unit#: [id number] ? Loc: LAB.OPX ? Status: REG REF ?? Reg Date: 03/28/10 ? Pt.Phone Number: ? ----- ------- Specimen: [id number] ? STATUS: SOUT ?Spec Date:03/28/10 ? Physician Copies: ?Benjamín Marc ??M Tissues: ? LYMPH NODE FNA (LEFT POSTERIOR CERVICAL LYMP) ?Cooper Mojica MD ? CPT: 95493 ?? Units: ??1 ----- ------- ?? NON PLUMBER'S HELPER CYTOLOGY DIAGNOSIS Lymph node, posterior cervical, left, FNA: - Atypical lymphoid cells present. Comment: There is an increased population of intermediate sized lymphocytes relative to small mature lymphocytes. ??Lymphoma cannot be excluded. ??Recommend tissue biopsy (e.g., 14g cores) to obtain fresh material for flow cytometry and histologic evaluation. ----- ------- ?CLINICAL HISTORY LEFT POSTERIOR CERVICAL LYMPH NODE MASS ----- ------- ? SPECIMEN DESCRIPTION ? 30ml pinkish cytolyt w/bits, 1tp, 2 alc, 2 air Signed ____(signature on file)____ Maddi Zacarias M.D. 04/03/10 By the signature above, the attending physician certifies that he/she has personally conducted a gross and/or microscopic examination of the described specimens and rendered or confirmed the above diagnosis. Test Performed by [facility], 130 [facility] [address] Coding Compliance Manager: Maddi Zacarias MD PHD ----- ------- Benjamín Marc MD PATHOLOGY ORDERABLES [facility] documented in this encounter Visit Diagnoses Not on filedocumented in this encounter Care Teams Industrial Relations Representative Relationship Specialty Start Date End Date Cooper Mojica MD [address] [place] [phone] PCP - General 03/27/10 05/13/17 Edison Miramontes DO [address] [place] [address] PCP - General 05/14/17 08/22/19 Clint Miramontes MD [address] [place] [phone] PCP - General 08/23/19 documented as of this encounter
--- OUTSIDE RECORDS SUMMARY | 2024-08-07 13:42 | XMS_ITS ---
Author Organization Unknown ALLERGIES AND ADVERSE REACTIONS No information ASSESSMENT No information CHIEF COMPLAINT No information MEDICATIONS No information OBJECTIVE DATA No information PHYSICAL EXAMINATION No information TREATMENT PLAN Planned Care Start Date Provider Encounter for Check-up [id number] PROBLEMS No information RESULTS No information REVIEW OF SYSTEMS No information SUBJECTIVE DATA No information VITAL SIGNS No information
--- OUTSIDE RECORDS SUMMARY | 2024-08-07 13:42 | XMS_ITS | Encounter Summary ---
Author Organization [facility] Address [address] [place] [address] Care Team Providers Care Deicer Repairer Electric Name Role Phone Cooper Mojica MD Primary Care Provider [phone] Edison Miramontes DO Primary Care Provider [phone] Clint Miramontes MD Primary Care Provider [phone] Encounter Details Date Type Department Care Team (Late st Contact Info) Description 04/15/2010 Historical Results Only [facility] Lab - Main [place] [address] [place] [address] Benjamín Marc MD [address] [place] [phone] Social History Tobacco Use Types Packs/Day [...] Appointment [facility] MRI [address] [place], [place] [id number] 08/16/2024 14:00 EDT EMILIA [facility] OBGYN Ultrasound [address] [place] [address] 08/29/2024 14:00 EDT Office Visit [facility] OBGYN [address] [place], [place] [phone] Ness Vilchis MD [address] [place] [address], [address] [place] [phone] 08/31/2024 16:00 EDT Office Visit [facility] Orthopedics & Sport Medicine [address], [address] [place], [place] [phone] Reema Peoples PA-C 13[address] [facility] [address] [place], [place] [phone] 09/01/2024 9:30 EDT Office Visit [facility] Rheumatology [address] [place] [phone] Lin Grider MD [address] [place] [address] [address] [place] [address] 11/08/2024 14:00 EST Office Visit [facility] Adult Hematology & Oncology [address] [place] [address] Luz Maria Peter, GABRIEL [address] [place] [address] [address] [place] [address] 11/22/2024 10:15 EST Office Visit [facility] Family Medicine - [place] [address] [place] [address] Clint Miramontes MD [address] [place] [phone] documented as of this encounter Procedures Procedure Name Priority Date/Time Associated Diagnosis Comments SURGICAL PATHOLOGY Routine 04/15/2010 documented in this encounter Results * SURGICAL PATHOLOGY (04/15/2010) 04/15/2010 04/15/2010 13: 53 EDT Narrative [facility] - 04/23/2010 9:21 EDT DID PATH NOTIFY PHYSICIAN: WHERE SENT: JOHN THEIR SPEC.NUMBER #OF SLIDES ?? LABEL: 4 #OF BLOCKS ?? LABEL: 1 DATE SENT: ?04/18/10 # OF SLIDES ?? LABEL REC'D/DATE:1 BLK ?? 4 SLIDES REC'D 04/23/10 DATE REPORT REC'D: ? [id number] DID PATH NOTIFY PHYSICIAN: [facility] THEIR SPEC.NUMBER #OF SLIDES ?? LABEL:4 SLIDES #OF BLOCKS ?? LABEL: DATE SENT: ?05/24/10 # OF SLIDES ?? LABEL REC'D/DATE: 12/10/10 4 SLIDES DATE REPORT REC'D: ? 12/10/10 ----- ------- Name: DEANA COY ?: [birth year] ?Age/Sex: 69/F ?Unit#: [id number] ? Loc: SDS ? Status: DEP SDC ?? Reg Date: 04/15/10 ? Pt.Phone Number: ? ----- ------- Specimen: [id number] ? STATUS: SOUT ?Spec Date:04/15/10 ? Physician Copies: ?Benjamín Marc ??M Tissues: A ?? Lymph Node, regional resection (LEFT NECK) ? Cooper Mojica MD ? CPT: 41489 ?? Units: ??1 ? 43260 ? 1 ? 20142 ? 1 ?FINAL DIAGNOSIS ? Lymph node, left neck, biopsy; ? - Marginal zone lymphoma. ? Clinical evaluation for possible extranodal and are splenic involvement is ? recommended. ? GROSS DESCRIPTION ? Received in formalin and labeled left neck mass is a lymph node around 1 cm ? in greatest dimensions, bisected and entirely submitted. ??Tissue sent for flow ? cytometry. ??BT ?MICROSCOPIC DESCRIPTION ? Section show involvement by a non-Hodgkin's lymphoma of B-cell lineage. ??The ? clonal population is CD 19 and CD20 positive with lambda lambda light chains. ? CD5 CD10 CD23 are negative. ?? PREOP DX/CLINICAL HISTORY ?Left neck mass Signed ____(signature on file)____ Riley Guardado M.D. 04/23/10 ?? By the signature above, the attending physician certifies that he/she has personally conducted a gross and/or microscopic examination of the described specimens and rendered or confirmed the above diagnosis. Test Performed by [facility], [address] [place] [id number] Plant Technician/Control Room Operator: Maddi Zacarias MD PHD ----- ------- Benjamín Marc MD PATHOLOGY ORDERABLES [facility] documented in this encounter Visit Diagnoses Not on filedocumented in this encounter Care Teams Deicer Repairer Electric Relationship Specialty Start Date End Date Cooper Mojica MD [address] [place], [place] [phone] PCP - General 03/27/10 05/13/17 Edison Miramontes DO [address] [place] [address] PCP - General 05/14/17 08/22/19 Clint Miramontes MD [address] [place] [phone] PCP - General 08/23/19 documented as of this encounter
--- OUTSIDE RECORDS SUMMARY | 2024-08-07 13:42 | XMS_ITS | Encounter Summary ---
Author Organization [facility] Address [address] [place] [address] Care Team Providers Care Sample Sawyer Name Role Phone Cooper Mojica MD Primary Care Provider [phone] Encounter Details Date Type Department Care Team (Late st Contact Info) Description 04/19/2010 Results Only [facility] Laboratory Services - [facility] ([facility] [address] [place] [phone] Shwetha Guardado MD Social History Tobacco Use Types Packs/Day [...] EDT Appointment [facility] MRI [address] [place], [place] [phone] 08/16/2024 14:00 EDT EMILIA [facility] OBGYN Ultrasound [address] [place], [place] [phone] 08/29/2024 14:00 EDT Office Visit [facility] OBGYN [address] [place], [place] [phone] Ness Vilchis MD 130 [facility], [address] [place] [address] 08/31/2024 16:00 EDT Office Visit [facility] Orthopedics & Sport Medicine [address] [place] [address] Reema Peoples PA-C 1311 [facility] [address] [place], [place] [phone] 09/01/2024 9:30 EDT Office Visit [facility] Rheumatology [address] [place], [place] [phone] Lin Grider MD 130 [facility] [address] [place] [address] 11/08/2024 14:00 EST Office Visit [facility] Adult Hematology & Oncology [address] [place] [address] Luz Maria Peter NP 130 [facility], [facility] [address] [place] [address] 11/22/2024 10:15 EST Office Visit [facility] Family Medicine - [place] [address] [place], [place] [phone] Clint Miramontes MD [address] [place] [phone] documented as of this encounter Procedures Procedure Name Priority Date/Time Associated Diagnosis Comments BONE MARROW/HEMPATH CONSULT Routine 04/19/2010 0:00 EDT documented in this encounter Results * BONE MARROW (04/19/2010 0:00 EDT) Pathology Report: HEMATOPATHOLOGY CONSULTATIVE REPORT ? Reports generated via electronic interface contain original data; ? however they are lacking the format of the original report. ? Caution should be taken when reading/interpreting unformatted reports. ? Name: ? DEANA COY R ? Accession #: ? [id number] ? : ? 1950 (Age: 59) ??F ?Collect Date: ? 04/19/2010 ? Location: ? [facility] ? Receive Date: ? 04/19/2010 ? Provider: ? SHWETHA ELVA MD ? Copy to: ?COOPER LAFFAL MD ? DIAGNOSIS: ?Lymph node, left neck, biopsy ([facility] [id number], ?? 04/15/2010): ?- Marginal zone lymphoma. ??See microscopic and comment. ? COMMENT: ? I entirely agree with your impression that the findings are those of ? involvement by a non-Hodgkin lymphoma of B-cell lineage and that they are in ? keeping with involvement by a marginal zone lymphoma; the immunohistochemical ?? and flow cytometric findings are in keeping with this interpretation. ? Correlation with clinical data is essential; while the morphologic findings are compatible with involvement by a marry marginal zone lymphoma, evaluation for ?? possible extranodal and/or splenic involvement is necessary to permit proper ? final classification. ? Thank you for the opportunity to review this interesting case in consultation. ?? (Dr. Kristina Klein)/chip ? Document reviewed and electronically signed by: ? Buck Klein MD ? Report Date: ??04/22/2010 14:52 ? By the signature above, the attending physician certifies that he/she has ? personally conducted a gross and or microscopic examination of the described ? specimens and rendered or confirmed the above diagnosis. ? TISSUE SUBMITTED: ? [facility]: [id number]: Four (4) slides, one (1) block. ? CLINICAL DATA: ? The patient is a 59-year-old woman with a left neck mass. ??The present ? biopsy specimen was obtained on April 15, 2010. ? MICROSCOPIC: ? Sections of the lymph node show extensive disruption of normal architecture by a variably nodular neoplastic lymphoid infiltrate composed predominantly of ?? small lymphocytes with irregular nuclear contours, inconspicuous nucleoli, and ?? generally abundant pale to clear cytoplasm. ??Admixed are variable numbers of ? large cells, but sheets of such cells are not seen. ??In areas, the neoplastic ?? infiltrate disrupts germinal centers, while elsewhere well preserved secondary ?? follicles are noted. ? Immunohistochemically- stained sections are received for review. ??Staining for ?? CD20 demonstrates positivity not only of B-cells in residual germinal centers ?? but also of the neoplastic lymphocytes. ??Staining for CD3, in contrast, ? highlights variable numbers of reactive small T-cells in the background. ? Additional immunohistochemical staining of sections of the lymph node ? specimen is performed at [facility], and control preparations ?? demonstrate appropriate staining. ??Staining for bcl-6 (P1F6 + PG-B6p, [facility]) demonstrates nuclear positivity of cells comprising residual germinal ?? centers; additionally, weak, variable positivity is appreciated in varying ? proportions of the neoplastic B-cells. ??Staining for bcl-2 (Rabbit Monoclonal, ?? clone E17, [employer]) is negative in germinal center B-cells but is positive in T-cells and neoplastic B-cells. ??Staining for Ki-67 (Rabbit Monoclonal (SP6), ?? [facility]) demonstrates an appropriately high proliferative index among ? residual germinal center B-cells but a low proliferative rate in the neoplastic infiltrate (10-15%) with accentuation of large cells. ? Flow cytometric analysis ([id number]) reveals the presence of clonal B-cells ? expressing neither CD5 nor CD10; by light scatter criteria, the cells range from similar in size to larger than normal B-cells. ? NOTE: ??One or more of the reagents used in immunohistochemical testing in this case may not have been cleared or approved by the U.S. Food and Drug ? Administration (FDA). ??The FDA has determined that such clearance or approval is not necessary. ??These tests are used for clinical purposes. ??They should not be regarded as investigational or for research. ??These reagents' ??performance ? characteristics have been determined by [facility]. ??This ? laboratory is certified under the Clinical Laboratory Improvement Amendments of 1988 (CLIA-88) as qualified to perform high complexity clinical laboratory ? testing. ? End of Report ? [facility] 04/19/2010 04/19/2010 11: 20 EDT Shwetha Guardado MD PATHOLOGY ORDERABLES [facility] [address] [place] [address] documented in this encounter Visit Diagnoses Not on filedocumented in this encounter Care Teams Sample Sawyer Relationship Specialty Start Date End Date Cooper Mojica MD [address] [place] [address] PCP - General 03/27/10 05/13/17 documented as of this encounter
--- OUTSIDE RECORDS SUMMARY | 2024-08-07 13:42 | XMS_ITS | Encounter Summary ---
Author Organization [facility] Address [address] [place] [address] Care Team Providers Care Call Center Coordinator Name Role Phone Cooper Mojica MD Primary Care Provider [phone] Reason for Visit * Reason Onset Date Comments Other 2010 Encounter Details Date Type Department Care Team (Late st Contact Info) Description [address] [address] Benjamín Marc MD [address] [place] [phone] Other Social History Tobacco Use Types Packs/Day Years Used Date Smoking Tobacco: Never Assessed Sex and Gender Information Value Date Recorded Sex Assigned at Not on file Gender Identity Female 03/09/2020 13:07 EDT Sexual Orientation Not on file documented as of this encounter Miscellaneous Notes * Telephone Encounter - Elia Worley - 2010 1102 EDT Lynda is calling because she needs this patients records faxed to Dr. Lambert today before 3pm. Dr. Marc referred pt. To [facility]. Fax - [phone]. documented in this encounter Plan of Treatment Upcoming Encounters Date Type Department Care Team (Late st Contact Info) Description 08/10/2024 16:00 EDT Appointment [facility] MRI [address] [place], [place] [address] 08/16/2024 14:00 EDT EMILIA [facility] OBGYN Ultrasound [address] [place] [address] 08/29/2024 14:00 EDT Office Visit [facility] OBGYN [address] [place], [place] [phone] Ness Vilchis MD [address] [place], [place] [address], [address] [place] [phone] 08/31/2024 16:00 EDT Office Visit [facility] Orthopedics & Sport Medicine [address], [address] [place] [address] Reema Peoples PA-C 1311 [facility] [address] [place], [place] [phone] 09/01/2024 9:30 EDT Office Visit [facility] Rheumatology [address] [place] [phone] Lin Grider MD [address] [place], [place] [address] [address] [place] [address] 11/08/2024 14:00 EST Office Visit [facility] Adult Hematology & Oncology [address] [place] [phone] Luz Maria Peter NP 130 [facility], [facility] [address] [place] [address] 11/22/2024 10:15 EST Office Visit [facility] Family Medicine - [place] [address] [place] [address] Clint Miramontes MD [address] [place] [phone] documented as of this encounter Visit Diagnoses Not on filedocumented in this encounter Care Teams Call Center Coordinator Relationship Specialty Start Date End Date Cooper Mojica MD [address] [place] [address] PCP - General 03/27/10 05/13/17 documented as of this encounter
--- OUTSIDE RECORDS SUMMARY | 2024-08-07 13:42 | XMS_ITS | Encounter Summary ---
Author Organization [facility] Address [address] [place] [address] Care Team Providers Care Pulmonologist/Intensivist Name Role Phone Cooper Mojica MD Primary Care Provider [phone] Encounter Details Date Type Department Care Team (Latest Contact Info) Description 04/19/2010 15:22 EDT - 04/19/2010 15:23 EDT Hospital Encounter [facility] - Other [address] [place] [address] Riley Guardado MD Discharge Disposition: Home or [...] Upcoming Encounters Date Type Department Care Team ( st Contact Info) Description 08/10/2024 16:00 EDT Appointment [facility] MRI [address] [facility], [place] [id number] 08/16/2024 14:00 EDT EMILIA [facility] OBGYN Ultrasound [address] [place] [address] 08/29/2024 14:00 EDT Office Visit [facility] OBGYN [address] [place], [place] [phone] Ness Vilchis MD [address] [place], [place] [address]A, [address] [place] [phone] 08/31/2024 16:00 EDT Office Visit [facility] Orthopedics & Sport Medicine [address], [address] [place] [address] Reema Peoples PA-C 1311 [facility] [address] [place] [address] 09/01/2024 9:30 EDT Office Visit [facility] Rheumatology [address] [place] [address] [phone] Lin Grider MD [address] [place], [place] [address]B [address] [place] [address] 11/08/2024 14:00 EST Office Visit [facility] Adult Hematology & Oncology [address] [place] [address] [phone] Luz Maria Peter NP 130 [facility], [facility] [address] [place] [address] 11/22/2024 10:15 EST Office Visit [facility] Family Medicine - [place] [address] [place] [address] Clint Miramontes MD [address] [place] [phone] documented as of this encounter Visit Diagnoses Not on filedocumented in this encounter Care Teams Pulmonologist/Intensivist Relationship Specialty Start Date End Date Cooper Mojica MD [address] [place] [id number] PCP - General 03/27/10 05/13/17 documented as of this encounter
--- OUTSIDE RECORDS SUMMARY | 2024-08-07 13:42 | XMS_ITS | Encounter Summary ---
Author Organization [facility] Address [address] [place] [address] Care Team Providers Care Senior Contracts Manager Name Role Phone Cooper Mojica MD Primary Care Provider [phone] Reason for Visit * Reason Onset Date Comments Paperwork request 04/24/2010 Encounter Details Date Type Department Care Team (Late st Contact Info) Description 04/24/2010 Telephone [facility] [address] [place] [address] Benjamín Marc MD 130 [facility] [address] [place] [address] Paperwork request Social History Tobacco Use Types Packs/Day Years Used Date Smoking Tobacco: Never Assessed Sex and Gender Information Value Date Recorded Sex Assigned at Not on file Gender Identity Female 03/09/2020 13:07 EDT Sexual Orientation Not on file documented as of this encounter Miscellaneous Notes * Telephone Encounter - Shirin Gonzales - 04/24/2010 1111 EDT Per pt request faxed copy of recent pathology report. documented in this encounter Plan of Treatment Upcoming Encounters Date Type Department Care Team (Late st Contact Info) Description 08/10/2024 16:00 EDT Appointment [facility] [address] [place], [place] [phone] 08/16/2024 14:00 EDT EMILIA [facility] OBGYN Ultrasound [address] [place], [place] [phone] 08/29/2024 14:00 EDT Office Visit [facility] OBGYN [address] [place] [address] Ness Vilchis MD 130 [facility], [address] [place] [address] 08/31/2024 16:00 EDT Office Visit [facility] Orthopedics & Sport Medicine [address], [address] [place] [address] Reema Peoples PAToñoC 1311 [facility] [address] [place], [place] [phone] 09/01/2024 9:30 EDT Office Visit [facility] Rheumatology [address] [place], [place] [phone] Lin Grider MD [address] [place], [place] [address]B [address] [place] [address] 11/08/2024 14:00 EST Office Visit [facility] Adult Hematology & Oncology [address] [place] [address] Luz Maria Peter NP 130 [facility] [address] [place] [address] 11/22/2024 10:15 EST Office Visit [facility] Family Medicine - [place] [address] [place], [place] [phone] Clint Miramontes MD [address] [place] [phone] documented as of this encounter Visit Diagnoses Not on filedocumented in this encounter Care Teams Senior Contracts Manager Relationship Specialty Start Date End Date Cooper Mojica MD [address] [place] [address] PCP - General 03/27/10 05/13/17 documented as of this encounter
--- OUTSIDE RECORDS SUMMARY | 2024-08-07 13:42 | XMS_ITS | Encounter Summary ---
Author Organization [facility] Address [address] [place] [address] Care Team Providers Care Welding Engineer Name Role Phone Cooper Mojica MD Primary Care Provider [phone] Encounter Details Date Type Department Care Team (Late st Contact Info) Description 05/28/[address] [facility] Interventional Radiology - [facility] [address] [place] [address] Cecil Harmon MD 111 [facility], [address] [place] [address] Social History Tobacco Use Types Packs/Day Years Used Date Smoking Tobacco: Never Assessed Sex and Gender Information Value Date Recorded Sex Assigned at Not on file Gender Identity Female 03/09/2020 13:07 EDT Sexual Orientation Not on file documented as of this encounter Progress Notes * Cecil Harmon MD - 06/03/[address] Gene Shine's offic on May 24 to meet Ms. Ramirez. She is a 60 yo female with newly diagnosed lymphoma who is found to have a larger right PCOMM aneurysm on staging CT. Dr Shine asked me to speak with her and her daughter Ekta regarding the treatment option of coil embolization of the aneurysm. We discussed the aneurysm and it's imaging characteristics. We discussed treatment options and possibility of adequate treatment with embolization. I told her about the likely needto use a balloon to protect her posterior communicating artery. I answered their questions including other physicians with whom to obtain a second opinion. Ms. Ramirez and her daughter will considerher treatment options and my office will contact her to answer any additional questions as needed. documented in this encounter Plan of Treatment Upcoming Encounters Date Type Department Care Team (Late st Contact Info) Description 08/10/2024 16:00 EDT Appointment [facility] MRI [address] [place], [place] [address] 08/16/2024 14:00 EDT EMILIA [facility] OBGYN Ultrasound [address] [place] [address] 08/29/2024 14:00 EDT Office Visit [facility] OBGYN [address] [place] [phone] Ness Vilchis MD [address] [place] [address], [address] [place] [phone] 08/31/2024 16:00 EDT Office Visit [facility] Orthopedics & Sport Medicine [address], [address] [place], [place] [phone] Reema Peoples PA-C 1311 [facility] [address] [place], [place] [phone] 09/01/2024 9:30 EDT Office Visit [facility] Rheumatology [address] [place] [phone] Lin Grider MD [address] [place] [address] [facility] [address] [place] [address] 11/08/2024 14:00 EST Office Visit [facility] Adult Hematology & Oncology [address] [place] [phone] Luz Maria Peter, GABRIEL 130 [facility], [facility] [address] [place] [address] 11/22/2024 10:15 EST Office Visit [facility] Family Medicine - [place] [address] [place] [address] Clint Miramontes MD [address] [place] [phone] documented as of this encounter Visit Diagnoses Not on filedocumented in this encounter Care Teams Welding Engineer Relationship Specialty Start Date End Date Cooper Mojica MD [address] [place] [id number] PCP - General 03/27/10 05/13/17 documented as of this encounter
--- OUTSIDE RECORDS SUMMARY | 2024-08-07 13:42 | XMS_ITS | Encounter Summary ---
Author Organization [facility] Address [address] [place] [address] Care Team Providers Care Kitchen Steward Name Role Phone Cooper Mojica MD Primary Care Provider [phone] Encounter Details Date Type Department Care Team (Late st Contact Info) Description 04/15/2010 Results Only [facility] [address] [place] [phone] Shwetha Guardado MD Social History Tobacco Use [...] Contact Info) Description 08/10/2024 16:00 EDT Appointment [facility] MRI [address] [place] [address] 08/16/2024 14:00 EDT EMILIA [facility] OBGYN Ultrasound [address] [place], [place] [phone] 08/29/2024 14:00 EDT Office Visit [facility] OBGYN [address] [place], [place] [phone] Ness Vilchis MD 130 [facility], [address] [place] [address] 08/31/2024 16:00 EDT Office Visit [facility] Orthopedics & Sport Medicine [address], [address] [place] [address] Reema Peoples PA-C 1311 [facility] [address] [place], [place] [address] 09/01/2024 9:30 EDT Office Visit [facility] Rheumatology [address] [place], [place] [phone] Lin Grider MD 130 [facility] [address] [place] [address] 11/08/2024 14:00 EST Office Visit [facility] Adult Hematology & Oncology [address] [place] [address] Luz Maria Peter, GABRIEL 130 [facility], [facility] [address] [place] [address] 11/22/2024 10:15 EST Office Visit [facility] Family Medicine - [place] [address] [place], [place] [phone] Clint Miramontes MD [address] [place] [phone] documented as of this encounter Procedures Procedure Name Priority Date/Time Associated Diagnosis Comments FLOW CYTOMETRY Routine 04/15/2010 14:00 EDT documented in this encounter Results * FLOW CYTOMETRY (04/15/2010 14:00 EDT) Pathology Report: FLOW CYTOMETRY REPORT ? Reports generated via electronic interface contain original data; ? however they are lacking the format of the original report. ? Caution should be taken when reading/interpretin g unformatted reports. ? Name: ? DEANA COY ? Accession #: ? [id number] ? : ? 1950 (Age: 59) ??F ?Collect Date: ? 04/15/2010 14:00 ? Location: ? [facility] ? Receive Date: ? 04/15/2010 18:00 ? Provider: ?SHWETHA ELVA MD ? Copy to: ? FINAL IMMUNOPHENOTYPIC INTERPRETATION: ? 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 ??See comment. ? COMMENT: ? The results of flow cytometry are those of involvement by a ? lymphoproliferative disorder of B-cell lineage expressing lambda light chains. ?? The immunophenotypic profile is not specific; differential diagnosis ? considerations include marginal zone lymphoma and diffuse large B-cell lymphoma. Correlation of these findings with morphologic and clinical data is essential. ? Document reviewed and electronically signed by: ? Buck Klein MD ? Report Date: ??04/17/2010 15:38 ? By the signature above, the attending physician certifies that he/she has ? personally conducted an evaluation of the described specimen and rendered or ? confirmed the above diagnosis. ? CLINICAL HISTORY: ? The patient is a 59-year-old woman with a left neck mass. ? DESCRIPTION: ? The specimen consists of lymph node tissue from which a single cell ? suspension is prepared. ??Gating is performed using CD45 fluorescence and side ?? scatter. ??Cellular viability (assessed by propidium iodide exclusion) is ? adequate (87%) among cells with CD45 and side scatter properties typical of ? lymphocytes and suboptimal (71%) among CD45+ events overall; nonetheless, the ?? histograms are acceptable for evaluation. ??Expression of the following markers ?? is tested: CD2, CD3, CD4, CD5, CD7, CD8, CD10, CD11c, CD14, CD16, CD19, CD20, ?? CD23, CD38, CD45, CD56, CD57, FMC-7, HLA-DR, kappa light chain, lambda light ? chain. ? There is a clonal population of B-lymphocytes accounting for 12% of the ? lymphocytes. ??The cells comprising this population are positive for CD19, CD20 ?? (bright), FMC-7, HLA-DR, and lambda light chains, and they are negative for CD5, CD10, and CD23. ??By light scatter criteria, the cells range from similar in size to larger than normal lymphocytes. ? A majority of the lymphoid cells are T-lymphocytes (CD2+CD3+CD5+CD7+) with CD4+ and CD8+ subsets represented. ??The remaining lymphocytes are polytypic ? B-lymphocytes (CD19+CD20+) with both kappa+ and lambda+ subsets represented. ? End of Report ? [facility] 04/15/2010 14:0 0 EDT 04/15/2010 18:00 EDT Shwetha Guardado MD PATHOLOGY ORDERABLES [facility] [address] [place] [address] documented in this encounter Visit Diagnoses Not on filedocumented in this encounter Care Teams Kitchen Steward Relationship Specialty Start Date End Date Cooper Mojica MD [address] [place] [id number] PCP - General 03/27/10 05/13/17 documented as of this encounter
--- OUTSIDE RECORDS SUMMARY | 2024-08-07 13:42 | XMS_ITS | Encounter Summary ---
Author Organization [facility] Address [address] [place] [address] Care Team Providers Care Coordinate Measuring Machine Technician Name Role Phone Cooper Mojica MD Primary Care Provider [phone] Reason for Visit * Reason Onset Date Comments Advice Only 05/23/2010 I placed a call to patient to see if she had come to a decision: re: IR coil embolization to treat aneurysm. Encounter Details Date Type Department Care Team (Late st Contact Info) Description 05/23/2010 Telephone [facility] Interventional Radiology - [facility] [address] [place], [place] [phone] Cecil Harmon MD 111 [facility] [address] [place] [phone] Advice Only (I placed a call to patient to see if she had come to a decision: re: IR coil embolization to treat aneurysm. ) Social History Tobacco Use Types Packs/Day Years Used Date Smoking Tobacco: Never Assessed Sex and Gender Information Value Date Recorded Sex Assigned at Not on file Gender Identity Female 03/09/2020 13:07 EDT Sexual Orientation Not on file documented as of this encounter Miscellaneous Notes * Telephone Encounter - Ivette Rutherford - 05/24/2010 4491 EDT 05/24/10- Patient called back to schedule aneurysm coiling. She said that she is as sure as she will ever be. We set her pre-op eval w/PCP for May 29@10:15. The procedure is scheduled for June 03, 2010@700am Ivette * Telephone Encounter - Ivette Rutherford - 05/23/2010 1528 EDT 3:25: patient was not home and answering machine picked up. I left our contact numbers and asked her to call back. documented in this encounter Plan of Treatment Upcoming Encounters Date Type Department Care Team (Late st Contact Info) Description 08/10/2024 16:00 EDT Appointment [facility] MRI [address] [place], [place] [phone] 08/16/2024 14:00 EDT EMILIA [facility] OBGYN Ultrasound [address] [place] [address] 08/29/2024 14:00 EDT Office Visit [facility] OBGYN [address] [place] [address] [phone] Ness Vilchis MD [address] [place] [address], [address] [place] [phone] 08/31/2024 16:00 EDT Office Visit [facility] Orthopedics & Sport Medicine [address], [address] [place], [place] [phone] Reema Peoples PA-C 1311 [facility] [address] [place], [place] [phone] 09/01/2024 9:30 EDT Office Visit [facility] Rheumatology [address] [place] [address] [phone] Lin Grider MD [address] [place] [address] [address] [place] [address] 11/08/2024 14:00 EST Office Visit [facility] Adult Hematology & Oncology [facility], [place] [phone] Luz Maria Peter NP 130 [facility] [address] [place] [phone] 11/22/2024 10:15 EST Office Visit [facility] Family Medicine - [place] [address] [place] [address] Clint Miramontes MD [address] [place] [phone] documented as of this encounter Visit Diagnoses Not on filedocumented in this encounter Care Teams Coordinate Measuring Machine Technician Relationship Specialty Start Date End Date Cooper Mojica MD [address] [place] [phone] PCP - General 03/27/10 05/13/17 documented as of this encounter
[2024-08-07] MEDS: MORPHine 4 MG/ML SYR IVP (14:10)
[2024-08-07] MEDS: Ondansetron 4 MG/2 ML VIAL IVP (14:10)
--- NOTE | 2024-08-07 14:12 | ED.GENADUL_ITS ---
Discharge Plan Disposition Patient Disposition: Home Condition: Stable Discharge Details Clinical Impression: Closed fracture of left distal radius Primary Care Provider: Clint Miramontes ED Provider: Urbano Flores Home Meds and New Rx's Prescriptions: No Action lorazepam [Ativan] 1 mg tablet 1 mg PO QHS vit D3-folic oawm-C2-X6-B12 2,000-800-0.32 unit-mcg-mg tablet 1 tab PO DAILY aspirin 81 mg capsule 81 mg PO DAILY lovastatin 40 mg tablet 40 mg PO DAILY Patient Comments: 80mg calcium phos,dibas-vitamin D3 77-400 mg-unit tablet 1 tab PO DAILY Discharge Instructions Instructions: Radius Fracture (DC), Splint Care ED Additional Instructions: * Keep splint clean and dry. Wear sling for comfort * You have been given morphine and Zofran to go home with. Morphine should be taken for severe pain. Cut the tab in half and take opnly 7.5 mg every 4-6 hours. You can also take Tylenol every 4 hours and ibuprofen every 6 hours to help with pain * Orthopedic clinic will contact you tomorrow for follow-up HPI General Date/Time Provider Initiated Documentation: 08/07/24 13:17 . Limitations to Documentation: no limitations . Information obtained by: patient . HPI Narrative: 74-year-old female with past medical history of hyperlipidemia, COPD presents for evaluation of acute onset left wrist pain. She reports that she was attempting to dock a pontoon boat when she was reaching out to the dock and she slipped and her left arm fell against the railing and out onto an outstretched hand. She reports acute onset of pain and deformity of that left wrist. She reports that she has difficulty moving her fingers because it worsens the pain. But she denies any numbness or tingling. No open wounds or bleeding noted. Has not taken medication for arrival. She reports the pain is severe and constant. She did not sustain any other injuries during the fall Related Data Home Medications ?Medication ?Instructions ?Recorded ?Confirmed aspirin 81 mg capsule 81 mg PO DAILY 08/07/24 08/07/24 calcium phosphate,dibasic 77 1 tab PO DAILY 08/07/24 08/07/24 mg-vitamin D3 400 unit tablet lorazepam 1 mg tablet (Ativan) 1 mg PO QHS 08/07/24 08/07/24 lovastatin 40 mg tablet 40 mg PO DAILY 08/07/24 08/07/24 vit D3-folic acid-vit B2-B6-B12 1 tab PO DAILY 08/07/24 08/07/24 2,000 unit-800 mcg-0.32 mg tablet Allergies Allergy/AdvReac Type Severity Reaction Status Date / Time No Known Allergies Allergy Unverified 08/07/24 13:10 General Stated Complaint: Orthopedic JEROD: 3 Exam Narrative Exam Narrative: Review of Systems: All systems reviewed & are unremarkable except as noted in HPI and below Well-developed, no acute distress NCAT RRR Unlabored respiratory effort left wrist with obvious deformity, 2+ radial pulse, skin intact, sensation intact Course Vital Signs Vital signs: Vital Signs Temperature 36.6 C 08/07/24 13:06 Pulse 125 H 08/07/24 13:06 Respiratory Rate 16 08/07/24 13:06 Blood Pressure 185/106 H 08/07/24 13:06 Pulse Oximetry 95 08/07/24 13:06 Temperature 36.6 C 08/07/24 13:06 Temperature Source Temporal Artery Scan 08/07/24 13:06 Pulse 125 H 08/07/24 13:06 Respiratory Rate 16 08/07/24 13:06 Respiratory Effort Normal 08/07/24 13:11 Blood Pressure 185/106 H 08/07/24 13:06 Blood Pressure Position Sitting 08/07/24 13:06 Pulse Oximetry 95 08/07/24 13:06 Oxygen Delivery Method Room Air 08/07/24 13:06 Oxygen Flow Rate 0 08/07/24 13:06 Pain Level 8 08/07/24 13:06 Procedures Orthopedic Joint Reduction Joint #1: Side: left Joint Reduction Location: wrist Analgesia: hematoma block Local Anesthesia: Lidocaine 1% Amount of anesthesic used (mL): 10 Technique used: direct manipulation and other (Finger traps) Post-reduction neuro exam: intact Post-reduction vascular: intact Post Reduction X-Ray Results: other (Slight improvement in alignment) Orthopedic Splinting/Casting Injury #1: Side: left Upper Extremity Injury Location: wrist Upper Extremity Immobilizer: volar splint Medical Decision Making Emergent evaluation of acute left wrist injury. Examination is highly suspicious for fracture. Also consider ligamentous injury, contusion. Patient is neurovascularly intact. X-ray imaging of the left wrist was obtained and this was independently interpreted, fracture of the distal radius with displacement and angulation noted. An IV was placed for pain control and possible sedation if needed. Hematoma block was done and the patient was hung in finger traps. She had significant improvement in her alignment and only required a small amount of pushing on the wrist to have better alignment. Volar splint was placed and the patient reports significant improvement in her pain after the reduction. The images were reviewed by orthopedic surgery and they will follow-up with the patient this week for surgical fixation of the fracture. She was discharged with morphine IR and Zofran. She was instructed to cut the morphine tablets in half and take them in addition to Motrin and Tylenol. Return precautions Quality:SDOH Health Related Social Needs: No Data to Display PFSH All Active Problems (Updated 08/07/24 @ 15:45 by Urbano Flores MD) Closed fracture of left distal radius (Acute) Social History Smoking risk assessment performed?: No
[2024-08-07] MEDS: Lidocaine 1% Multi-Dose 50 ML VIAL (14:42)
[2024-08-07] MEDS: ACETAMINOPHEN 1,000 MG/100 ML BTL 400 MG IVPB (14:42)
--- NOTE | 2024-08-07 15:03 | DI.VRAD_ITS ---
PROCEDURE INFORMATION: Exam: XR Left Wrist Exam date and time: 08/07/2024 1:37 PM Age: 74 years old Clinical indication: Other: Pain TECHNIQUE: Imaging protocol: Radiologic exam of the left wrist. Views: 3 or more views. COMPARISON: No relevant prior studies available. FINDINGS: Bones/joints: Comminuted, intra-articular and dorsally impacted fracture of the distal radius metaphysis.There are degenerative changes of the first carpometacarpal and scaphotrapeziumtrapezoid joints. Soft tissues: Soft tissue swelling. IMPRESSION: Comminuted, intra-articular and dorsally impacted/displaced fracture of the distal radius metaphysis. Dictated and Authenticated by: Benjamín Gracia MD. Ordering:GARCÍA Jane MD
--- NOTE | 2024-08-07 15:30 | DI.RAD_ITS ---
Exam(s) XR WRIST LT COMPLETE EXAM: XR WRIST LT COMPLETE CLINICAL HISTORY: post reduction. TECHNIQUE: 2D digital imaging was performed. Three views. COMPARISON: CR,XR XR WRIST LT COMPLETE from 08/07/2024 FINDINGS: BONES: Improvement in alignment of distal radial fracture. Dorsal angulation has been corrected. Th ere is separation at the articular surface. Posterior comminuted fragments again noted. No bony alex tructive lesion is seen. JOINTS: The carpal bones are normally aligned. Severe degenerative changes 1st carpal metacarpal kaylee int. SOFT TISSUE: Swelling. Ventral splint. IMPRESSION: Improvement in alignment of intra-articular fracture of the distal radius. DATA REPOSITORY: RADIATION DOSE DELIVERED:
--- NOTE | 2024-08-07 16:02 | DI.VRAD_ITS ---
PROCEDURE INFORMATION: Exam: XR Left Wrist Exam date and time: 08/07/2024 3:54 PM Age: 74 years old Clinical indication: Other: Post reduction TECHNIQUE: Imaging protocol: Radiologic exam of the left wrist. Views: 3 or more views. COMPARISON: CR XR WRIST LT COMPLETE 08/07/2024 1:37 PM FINDINGS: Tubes, catheters and devices: Fiberglass splint. Bones/joints: Reduction of the dorsally impacted and displaced fracture distal radius metaphysis. Soft tissues: Soft tissue swelling. IMPRESSION: Interval reduction of the dorsally impacted and displaced fracture of the distal radius metaphysis. Dictated and Authenticated by: Benjamín Gracia MD. Ordering:JADYN Caruso MD
[2024-08-07] MEDS: Ondansetron O.D.T. 4 MG TABEF, 3 TABS/BTL PO (16:24)
[2024-08-07] MEDS: MORPHine IR 15 MG TAB, 4 TABS/BTL PO (16:25)
== END 2024-08-07 16:28 | disposition home or self-care (01) ==
PROVIDERS: Emergency Provider Emergency Medicine; PCP Family Medicine
DX: S52.502A Unspecified fracture of the lower end of left radius, initial encounter for closed fracture (principal); W22.8XXA Striking against or struck by other objects, initial encounter
CPT/HCPCS: 25505; 99284; 73110; 99283; J0131; J2003; J2270; J2405

== ENCOUNTER 2024-08-11 12:01 | Day surgery (SDC) | payer MEDICARE, SELFPAY ==
[2024-08-11] VITALS (36 sets, daily range): BP systolic 174–217; BP diastolic 72–103; PULSE 51–103; RESP 10–22; TEMP 36.3–36.7; O2SAT 92–98; BMI 18.5
--- NOTE | 2024-08-11 12:31 | W.PREOPHP ---
Assessment and Plan Assessment and plan (1) Closed fracture of left distal radius: Status: Acute Assessment and plan: Mel is a 74-year-old female who is quite active and fell while blocking her pontoon boat. She has a intra-articular, comminuted, and displaced distal radius fracture. I discussed her treatment options. Given the nature of the fracture I do offer operative fixation for better stability of the fracture and ultimate potential function. I do think nonoperative treatment is reasonable but there is some concern given the comminuted nature, and notable initial displacement, and intra-articular pattern, that she may have decreased function and pain, as well as arthritic potential. After reviewing this, she would like to proceed with operative fixation of the wrist fracture. I discussed technical details of the surgery. I reviewed risk to include bleeding, infection, pain, stiffness, hardware prominence, hardware failure, tendon disruption or irritation, malunion, nonunion, hardware prominence, hardware failure, need for repeat procedures, worsening arthritis. Despite these risk, she elects to proceed. (2) Arthritis of left knee: Status: Acute Assessment and plan: Mel has many ongoing left knee pain. She did have a more recent MRI which does show impaction fractures about the medial femur and the medial tibia. She has had multiple injections and is now seeking more definitive treatment. I recommended better evaluation in the office and I will review x-rays and MRI. I will work on obtaining these images and discuss more detail at her follow-up appointments. History of Present Illness Narrative: Mel is a 74-year-old female who unfortunately fell while docking her pontoon boat. She fell directly onto her left hand had immediate pain and deformity. She was seen in the emergency department and diagnosed with a comminuted, intra-articular distal radius fracture. A closed reduction was attempted which did improve the overall alignment of the fracture although still with some pieces and some displacement. She denied any numbness or tingling or vascular compromise about the left hand. She is right-hand dominant. However, she is very active with both her hands. Given the displaced nature and intra-articular characteristics of the fracture I recommended proceeding with operative fixation. I discussed this with her over the phone and offered both nonoperative and operative treatments although my recommendation for an active individual with an intra-articular and displaced fracture with comminution would be operative fixation. She does have a history of coil embolization of a cerebral aneurysm but otherwise has no active vascular issues. This was diagnosed when she was being evaluated for lymphoma. None of these problems are currently active. She has no chest pain or shortness of breath. She is also having worsening left knee pain for which she just underwent an MRI. Review of Systems All systems reviewed & are unremarkable except as noted in HPI and below PFSH All Active Problems (Updated 08/11/24 @ 12:54 by Jeison Fuller MD) Arthritis of left knee (Acute) Closed fracture of left distal radius (Acute) Medical History COPD (chronic obstructive pulmonary disease) Hx of lymphoma Per pt. states in remission History of cystocele with repair Anxiety Hyperlipidemia Surgical History Hx of tonsillectomy Hx of lymph node excision pt. unsure 2009 Hx of vascular surgery Hx of coil embolization for cerebral aneurysm 2010 in [place], [place] Hx of cerebral aneurysm repair Internal Carotid in neck H/O inguinal hernia repair Social History Smoking/Tobacco Use Status: Current-Occasional Tobacco Type: cigarettes Smoking risk assessment performed?: Yes Alcohol Intake: never Drug use: Occasionally Substance use type: marijuana Housing: house Do you feel safe at home: Yes Do you feel safe in your relationship?: Yes Meds Allergies and Home Medications Allergies Allergy/AdvReac Type Severity Reaction Status Date / Time atorvastatin Allergy Other (See Verified 08/11/24 12:35 Comment) rosuvastatin Allergy Skin Rash Verified 08/11/24 12:35 Home Medications ?Medication ?Instructions ?Recorded ?Confirmed ?Type aspirin 81 mg capsule 81 mg PO DAILY 08/07/24 08/09/24 History lorazepam 1 mg tablet (Ativan) 1 mg PO QHS 08/07/24 08/09/24 History lovastatin 40 mg tablet 40 mg PO DAILY 08/07/24 08/09/24 History vit D3-folic acid-vit B2-B6-B12 1 tab PO DAILY 08/07/24 08/09/24 History 2,000 unit-800 mcg-0.32 mg tablet acetaminophen 500 mg tablet 500 mg PO Q6H PRN 08/11/24 08/11/24 History (Acetaminophen Extra Strength) Exam Const General: cooperative, healthy appearing, comfortable and no acute distress Resp Effort & Inspection: normal respiratory effort Auscultation: clear to auscultation bilaterally Cardio Rate: regular rate Rhythm: regular rhythm Extrem Other: Notable bruising about the left hand. Sensation intact light touch of the median, radial, ulnar nerve. Capillary fill less than 2 seconds. Intact EPL, FPL, interossei function. Results Imaging Imaging Studies: X-ray of the left wrist demonstrate a comminuted dorsally displaced fracture. There are multiple dorsal fragments with intra-articular involvement. MRI report of the left knee was also reviewed which demonstrates impaction injuries of the medial femur and the medial tibia with bone marrow edema.
[2024-08-11] MEDS: Acetaminophen 500 MG TAB 1000 MG PO (12:46)
[2024-08-11] MEDS: Celecoxib 200 MG CAP 400 MG PO (12:46)
[2024-08-11] MEDS: Lactated Ringers 1,000 ML 80 ML IV (13:00)
--- NOTE | 2024-08-11 13:02 | W.ANESPRE ---
General Info Date of Service Date Performed: 08/11/24 Height: 4 ft 11 in Weight: 41.6 kg Body Mass Index (BMI): 18.5 Surgical Procedure: Operation Date: 08/11/24 13:10 Proposed Procedure Side Surgeon p Wrist ORIF Distal Radius Left Jeison Fuller MD Meds Allergies and Home Medications Allergies Allergy/AdvReac Type Severity Reaction Status Date / Time atorvastatin Allergy Other (See Verified 08/11/24 12:35 Comment) rosuvastatin Allergy Skin Rash Verified 08/11/24 12:35 Home Medication ?Medication ?Instructions ?Recorded aspirin 81 mg capsule 81 mg PO DAILY 08/07/24 lorazepam 1 mg tablet (Ativan) 1 mg PO QHS 08/07/24 lovastatin 40 mg tablet 40 mg PO DAILY 08/07/24 vit D3-folic acid-vit B2-B6-B12 1 tab PO DAILY 08/07/24 2,000 unit-800 mcg-0.32 mg tablet acetaminophen 500 mg tablet 500 mg PO Q6H PRN 08/11/24 (Acetaminophen Extra Strength) Current Visit Medications: Current Medications Generic Name Dose Route Start Last Admin Trade Name Freq PRN Reason Stop Dose Admin Acetaminophen 1,000 mg 08/11/24 06:00 Acetaminophen 500 Mg Tab PO 08/11/24 18:00 PREOP ELEANOR Celecoxib 400 mg 08/11/24 06:00 Celecoxib 200 Mg Cap PO 08/11/24 18:00 PREOP ELEANOR Ringer's Solution 1,000 mls @ 80 mls/hr 08/11/24 06:00 IV 09/09/24 23:59 INFUSION ELEANOR Cefazolin Sodium/Dextrose 2 gm in 50 mls @ 100 mls/hr 08/11/24 06:00 Ancef Duplex IVPB 08/11/24 18:00 PREOP ELEANOR Tranexamic Acid/Sodium Chloride 1,000 mg in 100 mls @ 600 mls/hr 08/11/24 06:00 IVPB 08/11/24 18:00 PREOP [facility] IV Miscellaneous Supplies 1 each 08/11/24 06:00 Iv Access IV 09/09/24 23:59 DIRECTED ELEANOR Sodium Chloride 0 ml 08/11/24 06:00 Normal Saline Flush 10 Ml Syr IV 09/09/24 23:59 PRN PRN Sodium Chloride 0 ml 08/11/24 06:00 Normal Saline 10 Ml Vial IJ 09/09/24 23:59 DIRECTED PRN Sterile Water 0 ml 08/11/24 06:00 Water,Injection,Sterile 10 Ml Vial IJ 09/09/24 23:59 DIRECTED PRN PFSH Active Problems Active Problems: Problem Status Onset Code Arthritis of left knee Acute M17.12 Closed fracture of left distal radius Acute S52.502A Medical History Medical History (Updated 08/11/24 @ 12:54 by Jeison Fuller MD) Osteoporosis COPD (chronic obstructive pulmonary disease) Hx of lymphoma Per pt. states in remission History of cystocele with repair Anxiety Hyperlipidemia Medical History Comments:: Daily THC; MPI CV 2022 for exercise induced nausea/vomiting, pt states negative Surgical History Surgical History Hx of tonsillectomy Hx of lymph node excision pt. unsure 2009 Hx of vascular surgery Hx of coil embolization for cerebral aneurysm 2010 in [place], [place] Hx of cerebral aneurysm repair Internal Carotid in neck H/O inguinal hernia repair Tobacco Smoking/Tobacco Use Status: Current-Occasional Tobacco Type: cigarettes Alcohol Alcohol Intake: never Substance Use Substance use: Daily Substance use type: marijuana Vital Signs and Lab Results Vital Signs Most Recent Vital Signs in EMR: Most Recent Vital Signs Temp Pulse Resp BP Pulse Ox 36.7 C 103 H 16 178/79 H 97 08/11/24 12:15 08/11/24 12:15 08/11/24 12:15 08/11/24 12:15 08/11/24 12:15 Lab Results Blood Type / Crossmatch: No Data to Display Complete Blood Count: No Data to Display Complete Metabolic Panel: No Data to Display Liver Function Panel: No Data to Display Coagulation Panel: No Data to Display Cardiac Panel: No Data to Display Arterial Blood Gas: No Data to Display Venous Blood Gas: No Data to Display Pancreas Panel: No Data to Display Thyroid Panel: No Data to Display Infectious Disease: No Data to Display Blood Cultures: No Data to Display Toxicology Panel: No Data to Display Anesthesia Assessment and Plan Anesthesia History Personal History: No History of Anesthesia Complications Family History: No Family History of Anesthesia Complications Exercise Tolerance Exercise Tolerance: Metabolic Equivalents>4 Pertinent Negatives Pertinent Negatives: No Major Cardiovascular Symptoms or Complaints Cardiac & Pulmonary Exam Cardiac Exam: Normal S1/S2 Heart Sounds Pulmonary Exam: Clear Bilateral Breath Sounds Implantable Cardiac Device Does patient have a Pacemaker or an ICD?: No Airway Exam Known Difficult Airway: No Mallampati Class: 1 Mouth Opening: Normal (> 3cm) Thyromental Distance: Greater than 3 cm Neck Range of Motion: Full ROM Neck Circumference: Normal Teeth Condition: Normal Dentition ASA Classification ASA Score: ASA 2 Emergency Case?: No NPO Status NPO Status: NPO Clears >2 hours, Solids >8 hours Anesthesia Plan Resuscitation Status: Full Code Anesthesia Technique: General Anesthesia Airway Planned: Endotracheal Tube (RSI) Pain Management: Surgeon and patient request nerve block (Patient requests rescue axillary block, will assess in PACU) Monitors Used: Standard Monitors and SedLine Preoperative Comments:: Patient reports baseline nausea with intermittent episodes of vomiting. Planned ETT/RSI, rescue block, COPD well controlled.
[2024-08-11] MEDS: ceFAZolin 2 GM/50 ML BAG IVPB (13:43)
[2024-08-11] MEDS: TRANEXAMIC ACID/SOD. CHL. 1,000 MG/100 ML BAG 600 MG IVPB (13:47)
[2024-08-11] MEDS: Bupivacaine 0.25% Pres-Free W/EPI 30 ML VIAL (14:03)
--- NOTE | 2024-08-11 14:42 | DI.RAD_ITS ---
Exam(s) XR WRIST LT LIMITED EXAM: XR WRIST LT LIMITED CLINICAL HISTORY: left radius fracture. TECHNIQUE: 2D and realtime digital imaging was performed. COMPARISON: CR,XR XR WRIST LT COMPLETE from 08/07/2024 CR,XR XR WRIST LT COMPLETE from 08/07/2024 FINDINGS: Hard copy images show placement of a fixation plate along the volar aspect of the distal radius. The alignment appears satisfactory. Please see procedure note for details. Fluoro time: 1 minutes 9seconds RADIATION DOSE DELIVERED: [place]=0.39 mGy
--- NOTE | 2024-08-11 14:45 | ROE_ITS ---
Date of service: 08/11/24 Time of Service: 13:45 Operative Note Operative Note DATE OF PROCEDURE: 08/11/24 PRE-OP DIAGNOSIS: Left Comminuted, Intra-articular Distal Radius Fracture POST-OP DIAGNOSIS: same PROCEDURE: Open Reduction and Internal Fixation of Left Distal Radius SURGEON: Jeison Fuller EXCELLENCE SPECIALIST: Riaz Segura ANESTHESIA TYPE: General LMA/ETT Refer to Anesthesia Record ESTIMATED BLOOD LOSS: 10 PATHOLOGY: none sent COMPLICATIONS: None Patient was transported to: PACU Patient's condition: stable Indications: Mel is a 74 year old female who suffered a comminuted, intra-articular distal radius fracture. Given the deformity, displacement, fracture pattern, and effect on daily function, I recommended surgical fixation. I reviewed the risk of the procedure to include bleeding, infection co-pay, stiffness, damage to nerves and vessels, damage to muscles and tendons, malunion, nonunion, hardware prominence, tendon rupture, need for repeat procedures. Despite these risks, the patient elected to proceed. Findings: There is a distal radius fracture which had 2 epiphyseal fragments. It was reduced and fixed with a Synthes volar locking plate. Procedure Description: Mel was greeted in the preoperative holding area. The correct patient and site was confirmed and marked. The history and physical was updated. The consent was reviewed the patient and signed. The patient was taken to the operating room and placed in the supine position. All bony problems were well- padded. The left arm was placed onto a radiolucent hand table. A nonsterile tourniquet was placed high up on the arm. Prophylactic antibiotics in the form of cefazolin were administered. The left arm was prepped with ChloraPrep and draped in a standard fashion. A timeout was performed for safe surgery. A standard longitudinal incision was made overlying the flexor carpi radialis tendon starting at the distal wrist crease and moving proximally. The skin was incised sharply. The flexor carpi radialis tendon and its sheath is identified. The sheath was opened. The tendon was moved ulnarly in the floor of the sheath was incised. Blunt dissection the flexor pollicis longus muscle belly and tendon were also made radially exposing the pronator quadratus and the distal radius. The printer quadratus was elevated with an ulnar-based flap. This exposed the volar distal radius and the fracture. A urias elevator was used for full exposure of the volar surface of the distal radius. The primary fracture line was exposed. Using a series of elevators, curettes, and knife, the fracture was fully debrided of any fibrous tissue and callus formation. I used a freer elevator to help mobilize the fragments. There was a primary volar fracture line with a dorsal shell of bone. I then performed a closed reduction. Using gentle traction and fracture manipulation, this reduction was held. Fluoroscopic images were used to confirm adequate reduction. A single 1.6 mm K wire was then placed through the radial styloid into the proximal radial shaft holding the fracture reduced. An appropriately sized Synthes volar locking plate was then placed onto the bony surface of the distal radius. A single K wire was placed through the distal end and an olive wire was placed loosely on the proximal end to hold the plate positioned appropriately. Fluoroscopy was once again used to confirm appropriate positioning of the plate on the distal radius. A single nonlocking screw was placed to the distal portion of the plate securing the plate against the bone of the distal radial metaphysis. A distal radius clamp was utilized to finish the plate against the bone and the dorsal segment against its volar fragment piece. Once again, the plate was evaluated to make sure it was aligned appropriately. The single screw was also checked to make sure it was in appropriate positioning for trajectory of future screws. X-ray also showed that this had appropriately clamped the dorsal fragment. The remainder of the screws within the volar locking plate were filled with locking screws. These were made sure not to penetrate the dorsal cortex. Fluoroscopy was then used against confirm appropriate reduction. Nonlocking screws were placed within the 3 shaft screw holes. Final x-rays were obtained which demonstrated adequate reduction and positioning of hardware. The dorsal sunrise view was also obtained to ensure correct sizing of screws. The wound was then thoroughly irrigated. The pronator quadratus was reapproximated with a 0 Vicryl although it was torn initially upon injury to the wrist and cannot be completely reapproximated. The tourniquet was released and there was no notable vascular injury. The fingers were warm and well-perfused. The deep dermal layer was closed with a 2-0 Vicryl. The skin was closed with 4- 0 nylon. The wound was dressed with Xeroform, 4 x 4's, web roll. A short arm splint was applied. At the end the case all counts are correct. Patient was transferred back to the PACU in stable condition.
--- NOTE | 2024-08-11 14:53 | W.PM.DSUDISC ---
Date of service: 08/11/24 Time of Service: 14:53 Discharge Plan Disposition Patient Disposition: Home Condition: Good Discharge Details Reason For Visit: Left Distal Radius Fracture Attending Provider: Jeison Fuller Primary Care Provider: Clint Miramontes Home Meds and New Rx's Prescriptions: New hydrocodone-acetaminophen 5-325 mg tablet 1 tab PO Q4H PRN (Reason: pain) Qty: 14 0RF ibuprofen 600 mg tablet 600 mg PO TID PRN (Reason: pain) Qty: 90 3RF Continued lorazepam [Ativan] 1 mg tablet 1 mg PO QHS vit D3-folic auna-W3-V9-B12 2,000-800-0.32 unit-mcg-mg tablet 1 tab PO DAILY aspirin 81 mg capsule 81 mg PO DAILY lovastatin 40 mg tablet 40 mg PO DAILY Patient Comments: 80mg acetaminophen [Acetaminophen Extra Strength] 500 mg tablet 500 mg PO Q6H PRNQty: 60 0RF Discharge Instructions Additional Instructions: Wrist Fracture Fixation Discharge Instructions Activity: You should keep the hand/wrist elevated as much as possible for the first few days. You may use the other fingers as tolerated but avoid trying to do too much too soon. You may perform light activities with the splint in place. Dressing/Cast: Your splint should stay in place at all times. Do NOT get it wet. You may loosen the DESIRAE wrap if you feel it is too tight and then rewrap more loosely. Medications: - You should take Tylenol and Ibuprofen for baseline pain control. - You have been prescribed a stronger pain medication, Hydrocodone, for breakthrough pain. - You may apply ice over the wrist, just double bag so it doesn't get wet. Follow-up: 10-14 days Equipment/Supplies: Splint Activity:: Elevate Remove Dressings/Wound Care:: Do Not Remove Shower/Bathe:: Cover Diet:: As Tolerated Discharge Orders Discharge Orders: Discharge Order (Routine); Ordered 08/11/24 Ordered By: Jeison Fuller DS: Diagnosis Discharge Diagnosis (1) Closed fracture of left distal radius: Status: Acute (2) Arthritis of left knee: Status: Acute
[2024-08-11] MEDS: fentaNYL 100 MCG/2 ML VIAL IVP ×4 (15:18→15:49)
--- NOTE | 2024-08-11 15:40 | W.ANESPOSTOP ---
Postoperative Evaluation Date, Time and Location Date Performed: 08/11/24 Time Performed: 15:41 Patient Location: PACU Vital Signs Most Recent Imported Vital Signs: Most Recent Vital Signs Temp Pulse Resp BP Pulse Ox 36.6 C 66 20 193/89 H 97 08/11/24 15:36 08/11/24 15:36 08/11/24 15:36 08/11/24 15:36 08/11/24 15:36 Pain Score Most Recent Pain Score: Most Recent Pain Score Pain Level 7 08/11/24 15:37 Assessment Mental Status: Awake (Alert & Oriented to Patient Baseline) Airway and Respiratory Function: Patent airway with normal (patient baseline) respiratory exam Cardiovascular Function: Hemodynamically Stable Hydration Status: Adequately Hydrated Nausea & Vomiting: No Nausea or Vomiting Pain: Pain is Moderate or Severe Postoperative Pain Management: Pain being addressed with medication Peripheral Nerve Block: Patient did not receive a nerve block Postoperative Comments:: Pt. in PACU, received pain medication. She is smiling and conversive. Would like to wait for now before receiving any more pain medicine.
== END 2024-08-11 17:20 | disposition home or self-care (01) ==
PROVIDERS: PCP Family Medicine; Visit Provider Student in an Organized Health Care Education/Training Program
PROC: (CPT 25608; principal; 2024-08-11 13:00)
DX: S52.572A Other intraarticular fracture of lower end of left radius, initial encounter for closed fracture; J44.9 Chronic obstructive pulmonary disease, unspecified; M81.0 Age-related osteoporosis without current pathological fracture; E78.5 Hyperlipidemia, unspecified; F41.9 Anxiety disorder, unspecified; W19.XXXA Unspecified fall, initial encounter
CPT/HCPCS: 25608; C1889; 76000; 73100; J0690; J1100; J1805; J2003; J2250; J2371; J2405; J2704; J3010

== ENCOUNTER 2024-08-22 15:43 | Outpatient (CLI) | payer MEDICARE, SELFPAY ==
--- NOTE | 2024-08-22 14:15 | DI.RAD_ITS ---
Exam(s) XR WRIST LT LIMITED EXAM: XR WRIST LT LIMITED CLINICAL HISTORY: F/U LEFT WRIST ORIF. TECHNIQUE: 2D digital imaging was performed. Two images were obtained. PA and lateral views were ob tained. COMPARISON: CR,XR XR WRIST LT COMPLETE from 08/07/2024 CR XR WRIST LT LIMITED from 08/11/2024 FINDINGS: BONES: There are stable post operative changes present. No new fracture or dislocation. JOINTS: The joint spaces are well maintained. There are marked degenerative changes seen at the 1st CMC joint. SOFT TISSUE: Normal. IMPRESSION: Stable postoperative changes. DATA REPOSITORY: RADIATION DOSE DELIVERED:
== END 2024-08-22 15:44 | disposition home or self-care (01) ==
LOC: DIORS 15:44
PROVIDERS: PCP Family Medicine; Referring Provider Family Medicine; Visit Provider Student in an Organized Health Care Education/Training Program
DX: S52.502D Unspecified fracture of the lower end of left radius, subsequent encounter for closed fracture with routine healing; X58.XXXD Exposure to other specified factors, subsequent encounter; M17.12 Unilateral primary osteoarthritis, left knee
CPT/HCPCS: 99024; 73100

== ENCOUNTER 2024-09-22 15:43 | Outpatient (CLI) | payer MEDICARE, SELFPAY ==
--- NOTE | 2024-09-22 10:00 | DI.RAD_ITS ---
Exam(s) XR WRIST LT LIMITED EXAM: XR WRIST LT LIMITED INDICATION: F/U L DISTAL RAD FX. COMPARISON: No exams were available for comparison TECHNIQUE: 2D digital imaging was performed. Two views. FINDINGS: Stable fracture and hardware alignment. Continued healing at the distal radial fracture. Advanced degenerative changes again noted at 1st carpal metacarpal joint. DATA REPOSITORY: RADIATION DOSE DELIVERED:
== END 2024-09-22 15:44 | disposition home or self-care (01) ==
LOC: DIORS 15:43
PROVIDERS: PCP Family Medicine; Visit Provider Student in an Organized Health Care Education/Training Program
DX: S52.502D Unspecified fracture of the lower end of left radius, subsequent encounter for closed fracture with routine healing (principal); X58.XXXD Exposure to other specified factors, subsequent encounter; M17.12 Unilateral primary osteoarthritis, left knee
CPT/HCPCS: 99024; 73100

== ENCOUNTER 2024-09-25 07:35 | Emergency (ER) | payer MEDICARE, SELFPAY ==
[2024-09-25 07:38] VITALS: BP 172/73; PULSE 83; RESP 18; TEMP 36.5; O2SAT 96
--- NOTE | 2024-09-25 07:45 | DI.RAD_ITS ---
Exam(s) XR HUMERUS LT EXAM: XR HUMERUS LT CLINICAL HISTORY: pain s/p fall. TECHNIQUE: 2D digital imaging was performed. COMPARISON: No exams were available for comparison FINDINGS: Two views. No evidence of fracture nor dislocation nor abnormal soft tissue calcifications. No radiopaque forei gn bodies evident. Bone density normal. No osseous lesions in the humerus. IMPRESSION: No acute osseous findings in the left humerus. DATA REPOSITORY: RADIATION DOSE DELIVERED:
--- NOTE | 2024-09-25 07:45 | DI.RAD_ITS ---
Exam(s) XR WRIST LT COMPLETE EXAM: XR WRIST LT COMPLETE CLINICAL HISTORY: pain s/p fall. TECHNIQUE: 2D digital imaging was performed. COMPARISON: CR XR WRIST LT LIMITED from 09/22/2024 FINDINGS: 3 views Again noted is a volar fixation plate across healing fracture in the distal radius. Fracture fragmen ts are stable alignment, unchanged from images of 09/22/2024. No new ulnar variance. Scapholunate distance is slightly widened. There are moderate-advanced degenerative changes in the 1 st carpometacarpal joint again evident. IMPRESSION: Stable unchanged appearance at the plated fracture site in the distal radius. Increased scapholunate distance. Possibly indicates an element of intrarenal to the scapholunate lig ament. Degenerative changes at the 1st carpometacarpal joint again noted. DATA REPOSITORY: RADIATION DOSE DELIVERED:
--- NOTE | 2024-09-25 07:45 | DI.RAD_ITS ---
Exam(s) XR SHOULDER LT COMPLETE 2+V EXAM: XR SHOULDER LT COMPLETE 2+V CLINICAL HISTORY: pain s/p fall. TECHNIQUE: 2D digital imaging was performed. COMPARISON: No exams were available for comparison FINDINGS: Five views No evidence of acute fracture or dislocation or abnormal soft tissue calcifications. Subacromial spa ce is not diminished. No obvious degenerative changes in the glenohumeral and AC joints. Bone densi ty normal. No significant osseous lesions. IMPRESSION: No significant osseous findings in the left shoulder. DATA REPOSITORY: RADIATION DOSE DELIVERED:
--- NOTE | 2024-09-25 07:54 | ED.GENADUL_ITS ---
Discharge Plan Disposition Patient Disposition: Home Condition: Stable Discharge Details Clinical Impression: Contusion of arm, left Primary Care Provider: Clint Miramontes ED Provider: Buck Holbrook Home Meds and New Rx's Prescriptions: Continued lorazepam [Ativan] 1 mg tablet 1 mg PO QHS aspirin 81 mg capsule 81 mg PO DAILY lovastatin 40 mg tablet 80 mg PO DAILY Patient Comments: 80mg acetaminophen [Acetaminophen Extra Strength] 500 mg tablet 500 mg PO Q6H PRNQty: 60 0RF cholecalciferol (vitamin D3) [D3 DOTS] 50 mcg (2,000 unit) tablet 2,000 unit PO DAILY ascorbic acid (vitamin C) [C-500] 500 mg tablet 500 mg PO DAILY Discharge Instructions Additional Instructions: Your x-rays did not show any concerning findings. If you are still having pain in 1 to 2 weeks follow-up with orthopedics If you feel more ill or have severe worsening pain return to the emergency department for reevaluation HPI General Mode of arrival: ambulatory . Date/Time Provider Initiated Documentation: 09/25/24 07:45 . Limitations to Documentation: no limitations . Information obtained by: patient . History of Present Illness 74 year old F presents to the emergency department with the chief complaint of left arm pain, described as moderate, Quality is described as aching, Patient extremity. Patient started experiencing this day(s) (2) and it has been constant. Rest improves symptom(s), Movement worsens symptoms . Patient notes no other symptoms.. Patient did receive the following treatments prior to arrival, n one Related Data Home Medications ?Medication ?Instructions ?Recorded ?Confirmed aspirin 81 mg capsule 81 mg PO DAILY 08/07/24 09/25/24 lorazepam 1 mg tablet (Ativan) 1 mg PO QHS 08/07/24 09/25/24 acetaminophen 500 mg tablet 500 mg PO Q6H PRN #60 tabs 08/11/24 09/25/24 (Acetaminophen Extra Strength) lovastatin 40 mg tablet 80 mg PO DAILY 08/22/24 09/25/24 ascorbic acid (vitamin C) 500 mg 500 mg PO DAILY 09/25/24 09/25/24 tablet (C-500) cholecalciferol (vitamin D3) 50 2,000 unit PO DAILY 09/25/24 09/25/24 mcg (2,000 unit) tablet (D3 DOTS) Previous Rx's ?Medication ?Instructions ?Recorded acetaminophen 500 mg tablet 500 mg PO Q6H PRN #60 tabs 08/11/24 (Acetaminophen Extra Strength) Allergies Allergy/AdvReac Type Severity Reaction Status Date / Time atorvastatin Allergy Other (See Verified 09/25/24 07:43 Comment) rosuvastatin Allergy Skin Rash Verified 09/25/24 07:43 General Stated Complaint: Orthopedic JEROD: 4 Review of Systems All systems reviewed & are unremarkable except as noted in HPI and below Constitutional Constitutional: Denies chills, Denies fever(s) and Denies weakness Cardiovascular Cardiovascular: Denies chest pain and Denies dyspnea Respiratory Respiratory: Denies cough and Denies dyspnea Gastrointestinal Gastrointestinal: Denies abdominal pain, Denies nausea and Denies vomiting Integumentary/Breasts Skin/Breast: Denies rash Neurologic Neurologic: Denies weakness Exam Const General: no acute distress Orientation: alert HENMT Head: normal to inspection Ears: external ears normal General nose exam: external nose normal Mouth: moist mucous membranes Eyes General: appearance normal, both eyes and all related structures Neck Neck: normal visual inspection Resp Effort & Inspection: normal respiratory effort and able to speak in complete sentences Cardio Rate: regular rate Skin General skin exam: no rashes or lesions noted Neuro General: patient alert and patient oriented x3 Extrem General: full ROM and capillary refill normal Psych Mental Status: mental status grossly normal Course Vital Signs Vital signs: Vital Signs Temperature 36.5 C 09/25/24 07:38 Pulse 83 09/25/24 07:38 Respiratory Rate 18 09/25/24 07:38 Blood Pressure 172/73 H 09/25/24 07:38 Pulse Oximetry 96 09/25/24 07:38 Temperature 36.5 C 09/25/24 07:38 Temperature Source Oral 09/25/24 07:38 Pulse 83 09/25/24 07:38 Respiratory Rate 18 09/25/24 07:38 Respiratory Effort Normal, Non-Labored 09/25/24 07:45 Blood Pressure 172/73 H 09/25/24 07:38 Blood Pressure Position Sitting 09/25/24 07:38 Pulse Oximetry 96 09/25/24 07:38 Oxygen Delivery Method Room Air 09/25/24 07:38 Oxygen Flow Rate 0 09/25/24 07:38 Medical Decision Making 74-year-old female who recently had a surgery for a broken left wrist comes in after she tripped on Thursday over some boards and landed on her left arm. Did not hit her head or have other injuries. She has had left wrist, left mid humerus and left shoulder pain since. She denies any headache, neck pain, back pain, chest pain or abdominal pain. She has tenderness in the anterior left shoulder, left mid humerus and left posterior wrist. She does have bruising to the left mid humerus. She has full range of motion of all the joints, intact sensation and pulses. Suspect contusions but will obtain x-ray of the shoulder, humerus and wrist to evaluate for fractures. Patient stable, x-rays all negative. Suspect contusions, she is stable for discharge and will follow-up with her orthopedist if she continues to have pain. Return precautions given. She already has a wrist splint which she will use if needed. Differential Diagnosis Differential Diagnosis: sprain, contusion, fracture Quality:SDOH Health Related Social Needs: No Data to Display PFSH All Active Problems (Updated 09/25/24 @ 08:25 by Buck Holbrook MD) Contusion of arm, left (Acute) Subchondral insufficiency fracture of condyle of left femur (Acute) Arthritis of left knee (Acute) Closed fracture of left distal radius (Acute) Medical History Osteoporosis COPD (chronic obstructive pulmonary disease) Hx of lymphoma Per pt. states in remission History of cystocele with repair Anxiety Hyperlipidemia Surgical History Hx of tonsillectomy Hx of lymph node excision pt. unsure 2009 Hx of vascular surgery Hx of coil embolization for cerebral aneurysm 2010 in [place] Hx of cerebral aneurysm repair Internal Carotid in neck H/O inguinal hernia repair Social History Smoking/Tobacco Use Status: Never Smoking risk assessment performed?: Yes Alcohol Intake: never Drug use: Daily Substance use type: marijuana Housing: house Do you feel safe at home: Yes Do you feel safe in your relationship?: Yes
--- NOTE | 2024-09-25 08:53 | DI.VRAD_ITS ---
PROCEDURE INFORMATION: Exam: XR Left Shoulder Exam date and time: 09/25/2024 8:07 AM Age: 74 years old Clinical indication: Injury or trauma; Fall; Blunt trauma (contusions or hematomas); Shoulder; Left TECHNIQUE: Imaging protocol: Radiologic exam of the left shoulder. Views: 2 or more views. COMPARISON: No relevant prior studies available. FINDINGS: Bones/joints: Mild Degenerative changes in the acromioclavicular joint and glenohumeral joint. There is no evidence of acute fracture.There is no evidence of malalignment or dislocation. Soft tissues: Normal. IMPRESSION: There is no evidence of acute fracture.There is no evidence of malalignment or dislocation. Dictated and Authenticated by: Jeannie Ruiz MD. Ordering:GARCÍA Jane MD
--- NOTE | 2024-09-25 08:53 | DI.VRAD_ITS ---
PROCEDURE INFORMATION: Exam: XR Left Wrist Exam date and time: 09/25/2024 8:11 AM Age: 74 years old Clinical indication: Injury or trauma; Fall; Blunt trauma (contusions or hematomas); Left; Prior surgery; Surgery date: 1-6 months; Surgery type: FX wrist TECHNIQUE: Imaging protocol: Radiologic exam of the left wrist. Views: 3 or more views. COMPARISON: CR XR WRIST LT LIMITED 09/22/2024 10:18 AM FINDINGS: Bones/joints: Plate and screws in the distal radius. There is a healing distal radius fracture with fracture fragments stable in alignment. Severe degenerative changes in the thumb carpometacarpal joint. Soft tissues: Soft tissue swelling of the wrist IMPRESSION: 1. Plate and screws in the distal radius. There is a healing distal radius fracture with fracture fragments stable in alignment. 2. Severe degenerative changes in the thumb carpometacarpal joint. Dictated and Authenticated by: Jeannie Ruiz MD. Ordering:GARCÍA Jane MD
--- NOTE | 2024-09-25 08:56 | DI.VRAD_ITS ---
PROCEDURE INFORMATION: Exam: XR Left Humerus Exam date and time: 09/25/2024 8:10 AM Age: 74 years old Clinical indication: Injury or trauma; Fall; Blunt trauma (contusions or hematomas); Arm, upper; Left TECHNIQUE: Imaging protocol: Radiologic exam of the left humerus. Views: 2 or more views. COMPARISON: CR XR SHOULDER LT COMPLETE 2+V 09/25/2024 8:07 AM FINDINGS: Bones/joints: There is no evidence of acute fracture.There is no evidence of malalignment or dislocation. Mild degenerative changes in the acromioclavicular joint and glenohumeral joint Soft tissues: Normal. IMPRESSION: There is no evidence of acute fracture.There is no evidence of malalignment or dislocation. Dictated and Authenticated by: Jeannie Ruiz MD. Ordering:GARCÍA Jane MD
[2024-09-25 09:15] VITALS: BP 176/57; PULSE 67; RESP 16; O2SAT 100
== END 2024-09-25 09:15 | disposition home or self-care (01) ==
PROVIDERS: Emergency Provider Emergency Medicine; PCP Family Medicine
DX: S50.12XA Contusion of left forearm, initial encounter (principal); Z79.82 Long term (current) use of aspirin; W18.39XA Other fall on same level, initial encounter; Y93.01 Activity, walking, marching and hiking; Y92.89 Other specified places as the place of occurrence of the external cause
CPT/HCPCS: 99283; 73030; 73060; 73110

== ENCOUNTER 2024-11-03 15:45 | Outpatient (CLI) | payer MEDICARE, SELFPAY ==
--- NOTE | 2024-11-03 10:21 | DI.RAD_ITS ---
Exam(s) XR WRIST LT LIMITED EXAM: XR WRIST LT LIMITED INDICATION: F/U L DISTAL RAD. COMPARISON: CR,XR XR WRIST LT COMPLETE from 09/25/2024 TECHNIQUE: 2D digital imaging was performed. Two views. FINDINGS: A fixation plate is again noted along the distal radius. There has been continued healing of the dis chana radial fracture. The alignment is unchanged. DATA REPOSITORY: RADIATION DOSE DELIVERED:
== END 2024-11-03 15:46 | disposition home or self-care (01) ==
LOC: DIORS 15:45
PROVIDERS: PCP Family Medicine; Visit Provider Physician Assistant
DX: S52.502D Unspecified fracture of the lower end of left radius, subsequent encounter for closed fracture with routine healing (principal); X58.XXXD Exposure to other specified factors, subsequent encounter
CPT/HCPCS: 99024; 73100

== ENCOUNTER → 2024-12-22 11:04 | Outpatient (BNVA) | payer MEDICARE, SELFPAY | PROVIDERS: PCP Family Medicine; Referring Provider Family Medicine; Visit Provider Student in an Organized Health Care Education/Training Program | DX: S52.502D Unspecified fracture of the lower end of left radius, subsequent encounter for closed fracture with routine healing (principal); X58.XXXD Exposure to other specified factors, subsequent encounter; M17.12 Unilateral primary osteoarthritis, left knee | CPT/HCPCS: 99213 ==

== ENCOUNTER 2025-01-13 00:24 | Outpatient (CLI) | payer MEDICARE, SELFPAY ==
[2025-01-13 11:15] LABS: HGB 13.6 g/dL (11.2-15.7); MCH 29.6 pg (27.0-33.0); MCHC 32.4 % (32.0-36.0); MCV 91 fL (80-95); MPV 9.4 fL (8.0-11.0); Platelet Count 219 10^3/uL (130-400); RDW 12.7 % (11.7-14.6)
[2025-01-13 11:43] LABS: Anion Gap 7.8 mmol/L (3-11); BUN 16 mg/dL (7-18); CO2 31.2 mmol/L (21.0-32.0); CREATININE 0.7 mg/dL (0.55-1.02); Calcium 9.9 mg/dL (8.5-10.1); Chloride 104 mmol/L (98-107); Estimated GFR 90.14 (mL/min/1.73m2); Glucose 114 mg/dL (74-106); Sodium 143 mmol/L (136-145)
== END 2025-01-13 00:25 | disposition home or self-care (01) ==
PROVIDERS: PCP Family Medicine; Visit Provider Student in an Organized Health Care Education/Training Program
DX: M17.12 Unilateral primary osteoarthritis, left knee (principal); Z01.818 Encounter for other preprocedural examination
CPT/HCPCS: 36415; 80048; 85027; 99024

== ENCOUNTER 2025-01-13 10:06 | Outpatient (CLI) | payer MEDICARE, SELFPAY ==
--- NOTE | 2025-01-13 09:00 | DI.RAD_ITS ---
Exam(s) XR KNEE LT 1V XR STANDING ALIGNMENT EXAM: XR STANDING ALIGNMENT and XR knee LT 1 V CLINICAL HISTORY: PRE OP L KNEE. TECHNIQUE: 2D digital imaging was performed. Five images were obtained. COMPARISON: CR XR KNEE LEFT 3 VIEWS from 01/23/2023 FINDINGS: BONES: The hips are well maintained. The right knee is unremarkable. In the left knee, there is mil d spurring medially. The joint spaces are otherwise well maintained. There is a small joint effusio n. The ankles are well maintained.There is no significant leg length discrepancy. SOFT TISSUE: There is a calcification in the pelvis likely reflecting a calcified uterine fibroid. IMPRESSION: In the left knee, there are mild degenerative changes and a small joint effusion. DATA REPOSITORY: RADIATION DOSE DELIVERED:
== END 2025-01-13 10:07 | disposition home or self-care (01) ==
LOC: DIORS 10:07
PROVIDERS: PCP Family Medicine; Visit Provider Physician Assistant
DX: M17.12 Unilateral primary osteoarthritis, left knee (principal); Z01.818 Encounter for other preprocedural examination
CPT/HCPCS: 73560; 77073

== ENCOUNTER 2025-01-24 07:06 | Day surgery (SDC) | payer MEDICARE, SELFPAY ==
[2025-01-24] VITALS (30 sets, daily range): BP systolic 124–174; BP diastolic 49–71; PULSE 60–88; RESP 11–29; TEMP 36–36.6; O2SAT 92–100; BMI 20.4
--- NOTE | 2025-01-24 07:19 | W.PM.DSUDISC ---
Date of service: 01/24/25 Discharge Plan Disposition Patient Disposition: Home Condition: Good Discharge Details Reason For Visit: Left knee DJD Attending Provider: Jeison Fuller Primary Care Provider: Clint Miramontes Woden Meds and New Rx's Prescriptions: New acetaminophen 500 mg tablet 1,000 mg PO Q8H PRN Qty: 90 0RF Rx Instructions: Take two tablets up to every 8 hours as needed for pain aspirin 81 mg tablet,delayed release (DR/EC) 81 mg PO BID 30 Days Qty: 60 0RF celecoxib [Celebrex] 200 mg capsule 200 mg PO BID PRNQty: 60 0RF Rx Instructions: Take one tablet twice daily for pain and inflammation docusate sodium [Colace] 100 mg capsule 100 mg PO BID Qty: 30 0RF pantoprazole 40 mg tablet,delayed release (DR/EC) 40 mg PO DAILY Qty: 14 0RF dexamethasone 4 mg tablet 4 mg PO DAILY Qty: 2 0RF Rx Instructions: Take one tablet once daily for two days gabapentin 300 mg capsule 300 mg PO QHS Qty: 14 0RF Rx Instructions: Take one tablet at bedtime oxycodone 5 mg tablet 5 mg PO Q4H PRNQty: 18 0RF Rx Instructions: Take one tablet up to every 4 hours as needed for severe postoperative pain Continued lorazepam [Ativan] 1 mg tablet 1 mg PO QHS lovastatin 40 mg tablet 80 mg PO DAILY Patient Comments: 80mg cholecalciferol (vitamin D3) [D3 DOTS] 50 mcg (2,000 unit) tablet 2,000 unit PO DAILY ascorbic acid (vitamin C) [C-500] 500 mg tablet 500 mg PO DAILY Discontinued celecoxib [Celebrex] 200 mg capsule 200 mg PO DAILY Qty: 30 1RF aspirin 81 mg capsule 81 mg PO DAILY acetaminophen [Acetaminophen Extra Strength] 500 mg tablet 500 mg PO Q6H PRNQty: 60 0RF Discharge Instructions Additional Instructions: Total Knee Discharge Instructions Activity: The most important activity is to walk and to work on gentle motion (both flexion and extension). You should try to take short walks a few times a day. It is important that when resting you work on keeping the knee straight. Avoid putting a pillow behind the knee as this will encourage flexion. Work on range of motion exercises as provided by Physical Therapy. - Start outpatient physical therapy within 2 weeks. - You should wear the NEREYDA hose on both legs for 2 weeks. You may remove these at night. You may also use any compression sock in place of the NEREYDA hose. - Utilize [employer] to review exercises, see videos on exercises and obtain basic information pertaining to your surgery and your recovery. Dressing: Remove the John wrap by 2 days after your surgery and put on the NEREYDA stocking given to you from the hospital. Keep the surgical dressing (underneath the JOHN wrap) in place for at least one week. After the first week it may be removed and replaced with light gauze and tape or nothing. The wound and dressing may get wet after 3 days but avoid soaking the dressing or otherwise it will need to be changed. Many people prefer covering the dressing with cling wrap (saran wrap) to minimize it from getting soaked. If it gets wet, just pat dry. If it starts to peel off then it will need to be changed. Medications: - You should take Tylenol and anti-inflammatory Celebrex as your primary pain control medications. If the Celebrex is too expensive or not covered, please call the office for another alternative (Advil/Ibuprofen or Naproxen/Aleve) - You have been prescribed a stronger pain medication Oxycodone for breakthrough pain, take as needed as prescribed. - You have also been prescribed a stomach acid reduction agent Pantoprozole to help reduce stomach acid and reflux. - You have been prescribed Gabapentin to take at night for restlessness and nerve pain. - You will be taking Aspirin 81mg twice a day for DVT prevention unless instructed otherwise. - You have also been prescribed Decadron to take to control post-operative nausea and pain. You will start this tomorrow. - If you have constipation you should take Colace (which has been prescribed) or Miralax (which is available [id number]). It takes most people 3-4 days to have a bowel movement. Follow-up: 2 weeks If you have any acute concerns or questions, please do not hesitate to contact the office at [phone]. You may contact Dr. Fuller with any questions after hours through the hospital at [phone] or on his cell phone at [phone]. Stand Alone Forms: Anesthesia Discharge Inst., Stephan.Nerve Block Instructions, Saulo Yanez ([facility]) Referrals: Jeison Fuller MD [ [facility] STAFF PHYSICIAN] - 02/06/25 10:15 am Equipment/Supplies: Walker Activity:: Elevate Remove Dressings/Wound Care:: Do Not Remove Shower/Bathe:: Cover Diet:: As Tolerated Discharge Orders Discharge Orders: Discharge Order (Routine); Ordered 01/24/25 Ordered By: Livier Velásquez
[2025-01-24] MEDS: Celecoxib 200 MG CAP 400 MG PO (07:52)
[2025-01-24] MEDS: Acetaminophen 500 MG TAB 1000 MG PO (07:52)
[2025-01-24] MEDS: Gabapentin 300 MG CAP PO (07:52)
[2025-01-24] MEDS: Lactated Ringers 1,000 ML 80 ML IV (08:05)
--- NOTE | 2025-01-24 08:10 | W.ANESPRE ---
General Info Date of Service Date Performed: 01/24/25 Height: 4 ft 10 in Weight: 44.4 kg Body Mass Index (BMI): 20.4 Surgical Procedure: Operation Date: 01/24/25 09:40 Proposed Procedure Side Surgeon p Knee Total Arthroplasty, Cementless CR Left Jeison Fuller MD Actual Procedure Side Surgeon p Knee Total Arthroplasty, Cementless CR Left Jeison Fuller MD Pre-Op Diagnosis Post-Op Diagnosis Arthritis of left knee Meds Allergies and Home Medications Allergies Allergy/AdvReac Type Severity Reaction Status Date / Time atorvastatin Allergy Other (See Verified 01/24/25 07:47 Comment) rosuvastatin Allergy Skin Rash Verified 01/24/25 07:47 Home Medication ?Medication ?Instructions ?Recorded lorazepam 1 mg tablet (Ativan) 1 mg PO QHS 08/07/24 lovastatin 40 mg tablet 80 mg PO DAILY 08/22/24 ascorbic acid (vitamin C) 500 mg 500 mg PO DAILY 09/25/24 tablet (C-500) cholecalciferol (vitamin D3) 50 2,000 unit PO DAILY 09/25/24 mcg (2,000 unit) tablet (D3 DOTS) acetaminophen 500 mg tablet 1,000 mg (2 x 500 mg) PO Q8H PRN 01/24/25 pain #90 tabs aspirin 81 mg tablet,delayed 81 mg PO BID 30 days #60 tabs 01/24/25 release celecoxib 200 mg capsule (Celebrex) 200 mg PO BID PRN #60 caps 01/24/25 dexamethasone 4 mg tablet 4 mg PO DAILY #2 tabs 01/24/25 docusate sodium 100 mg capsule 100 mg PO BID #30 caps 01/24/25 (Colace) gabapentin 300 mg capsule 300 mg PO QHS #14 caps 01/24/25 oxycodone 5 mg tablet 5 mg PO Q4H PRN #18 tabs 01/24/25 pantoprazole 40 mg tablet,delayed 40 mg PO DAILY #14 tabs 01/24/25 release Current Visit Medications: Current Medications Generic Name Dose Route Start Last Admin Trade Name Freq PRN Reason Stop Dose Admin Acetaminophen 1,000 mg 01/24/25 06:00 01/24/25 07:52 Acetaminophen 500 Mg Tab PO 01/24/25 23:59 1,000 mg PREOP ELEANOR Administration Celecoxib 400 mg 01/24/25 06:00 01/24/25 07:52 Celecoxib 200 Mg Cap PO 01/24/25 23:59 400 mg PREOP ELEANOR Administration Gabapentin 300 mg 01/24/25 06:00 01/24/25 07:52 Gabapentin 300 Mg Cap PO 01/24/25 23:59 300 mg PREOP ELEANOR Administration Hydromorphone HCl 0.5 mg 01/24/25 07:16 Hydromorphone 2 Mg/Ml Syr IVP 02/23/25 07:15 Q2H PRN PRN Cefazolin Sodium/Dextrose 2 gm in 50 mls @ 100 mls/hr 01/24/25 06:00 Ancef Duplex IVPB 01/24/25 23:59 PREOP ELEANOR Tranexamic Acid/Sodium Chloride 1,000 mg in 100 mls @ 600 mls/hr 01/24/25 06:00 IVPB 01/24/25 23:59 PREOP ELEANOR Ringer's Solution 1,000 mls @ 80 mls/hr 01/24/25 07:00 01/24/25 08:05 IV 02/23/25 06:59 80 mls/hr INFUSION ELEANOR Administration Cefazolin Sodium/Dextrose 1 gm in 50 mls @ 100 mls/hr 01/24/25 08:00 Ancef Duplex IVPB 01/25/25 00:29 Q8H ELEANOR IV Miscellaneous Supplies 1 each 01/24/25 06:00 Iv Access IV 01/24/25 23:59 DIRECTED ELEANOR Oxycodone HCl 0 mg 01/24/25 07:16 Oxycodone 5 Mg Tab PO 02/23/25 07:15 Q3H PRN PRN Pain Sodium Chloride 0 ml 01/24/25 06:00 Normal Saline Flush 10 Ml Syr IV 01/24/25 23:59 PRN PRN Sodium Chloride 0 ml 01/24/25 06:00 Normal Saline 10 Ml Vial IJ 01/24/25 23:59 DIRECTED PRN Sterile Water 0 ml 01/24/25 06:00 Water,Injection,Sterile 10 Ml Vial IJ 01/24/25 23:59 DIRECTED PRN PFSH Active Problems Active Problems: Problem Status Onset Code Subchondral insufficiency fracture of condyle of left femur Acute M84.452A Arthritis of left knee Chronic M17.12 Closed fracture of left distal radius Acute S52.502A Medical History Medical History Osteoporosis COPD (chronic obstructive pulmonary disease) Hx of lymphoma Per pt. states in remission - no treatment Closely watched [place] [facility] [place] Hyperlipidemia Surgical History Surgical History History of cystocele with repair Hx of tonsillectomy Hx of lymph node excision pt. unsure 2009 Hx of vascular surgery Hx of coil embolization for cerebral aneurysm 2010 in [place], [place] Hx of cerebral aneurysm repair Internal Carotid in neck H/O inguinal hernia repair Tobacco Smoking/Tobacco Use Status: Former Tobacco Use Passive smoking exposure: No Alcohol Alcohol Intake: never Substance Use Substance use: Daily Substance use type: marijuana Details: 01/24/25: last used marijuana 2 weeks ago Vital Signs and Lab Results Vital Signs Most Recent Vital Signs in EMR: Most Recent Vital Signs Temp Pulse Resp BP Pulse Ox 36.5 C 72 16 135/52 L 99 01/24/25 07:31 01/24/25 07:31 01/24/25 07:31 01/24/25 07:31 01/24/25 07:31 Lab Results Blood Type / Crossmatch: No Data to Display Complete Blood Count: White Blood Count 6.00 10^3/uL (4.4-10.8) 01/13/25 11:03 Red Blood Count 4.60 10^6/uL (3.93-5.22) 01/13/25 11:03 Hemoglobin 13.6 g/dL (11.2-15.7) 01/13/25 11:03 Hematocrit 42.0 % (36.0-46.0) 01/13/25 11:03 Platelet Count 219 10^3/uL (130-400) 01/13/25 11:03 Complete Metabolic Panel: Sodium 143 mmol/L (136-145) 01/13/25 11:03 Potassium 4.0 mmol/L (3.5-5.1) 01/13/25 11:03 Chloride 104 mmol/L (98-107) 01/13/25 11:03 Carbon Dioxide 31.2 mmol/L (21.0-32.0) 01/13/25 11:03 BUN 16 mg/dL (7-18) 01/13/25 11:03 Creatinine 0.7 mg/dL (0.55-1.02) 01/13/25 11:03 Est GFR (CKD-EPI 2020) 90.14 (mL/min/1.73m2) 01/13/25 11:03 Calcium 9.9 mg/dL (8.5-10.1) 01/13/25 11:03 Glucose 114 mg/dL (74-106) H 01/13/25 11:03 Liver Function Panel: No Data to Display Coagulation Panel: No Data to Display Cardiac Panel: No Data to Display Arterial Blood Gas: No Data to Display Venous Blood Gas: No Data to Display Pancreas Panel: No Data to Display Thyroid Panel: No Data to Display Infectious Disease: No Data to Display Blood Cultures: No Data to Display Toxicology Panel: No Data to Display Anesthesia Assessment and Plan Anesthesia History Personal History: No History of Anesthesia Complications Family History: No Family History of Anesthesia Complications Exercise Tolerance Exercise Tolerance: Metabolic Equivalents>4 Pertinent Negatives Pertinent Negatives: No Symptoms of GERD, No Major Cardiovascular Symptoms or Complaints and No Major Pulmonary Symptoms or Complaints Cardiac & Pulmonary Exam Cardiac Exam: Normal S1/S2 Heart Sounds Pulmonary Exam: Clear Bilateral Breath Sounds Implantable Cardiac Device Does patient have a Pacemaker or an ICD?: No Airway Exam Known Difficult Airway: No Mallampati Class: 1 Mouth Opening: Normal (> 3cm) Thyromental Distance: Greater than 3 cm Neck Range of Motion: Full ROM Neck Circumference: Normal Teeth Condition: Normal Dentition ASA Classification ASA Score: ASA 2 Emergency Case?: No NPO Status NPO Status: NPO Clears >2 hours, Solids >8 hours Anesthesia Plan Resuscitation Status: Full Code Anesthesia Technique: Spinal Anesthesia Airway Planned: Natural Airway Pain Management: Surgeon and patient request nerve block Monitors Used: Standard Monitors
--- NOTE | 2025-01-24 09:04 | W.PM.OP ---
Operative Note Operative Note PRE-OP DIAGNOSIS: Right Knee Osteoarthritis POST-OP DIAGNOSIS: same (with focal osteochondral defect of medial femur) PROCEDURE: Right Total Knee Replacement SURGEON: Jeison Fuller SUPERVISOR [employer] REPAIR: Livier Velásquez ANESTHESIA TYPE: General LMA/ETT Refer to Anesthesia Record ESTIMATED BLOOD LOSS: 100 PATHOLOGY: none sent TOURNIQUET TIME: 0 COMPLICATIONS: None Patient was transported to: PACU Patient's condition: stable Implants: 1. Depuy Attune Cementless Cruciate Retaining Femoral Component, Size 4 Narrow 2. Depuy Attune Cementless Fixed Bearing Tibial Component, Size 3 3. Depuy Attune 4x6mm CR/FB Poly Indications: I have seen Mel in clinic for symptoms of knee arthritis from a osteochondral defect, confirmed with radiographic findings. She has exhausted nonoperative methods and was having significant limitations in daily function and desired better function and less pain. I discussed the technical details of a knee replacement. I explained the risks of the procedure to include, but not limited to, bleeding, infection, pain, stiffness, fracture, damage to nerves and vessels, damage to muscles and tendons, loosening, need for repeat procedure, blood clot and cardiopulmonary demise. Despite these risks, Mel elected to proceed. Findings: There was a full-thickness osteochondral defect involving the weightbearing portion of the medial femur. This had a loose piece of cartilage along with missing bone. There was some more mild arthritic changes seen within the medial tibia. Procedure Description: Mel was greeted in the preoperative holding area where the correct side was identified and marked. The consent was reviewed with the patient and signed. The history and physical was updated. All questions were answered. Preoperative medications were administered: Acetaminophen 1000mg, Celebrex 400mg, and Gabapentin 300mg. An adductor canal block was then administered by the anesthesia team in the DSU. She was taken back to the operating room. A spinal anesthestic was attemtped but not successful, thus a general anesthetic was administered. The patient was placed into the supine position on the operating room table. Posts were placed for positioning during the procedure. All bony prominences were well padded. Prophylactic antibiotics in the form of Cefazolin were administered. 1g of Tranxemic Acid was given intravenously within 30 minutes of incision. The left leg was then prepped with Chloraprep and draped in a standard fashion with impervious stockinette. A second prep with Chloraprep was performed prior to application of Iodine impregnated skin protection. A timeout to confirm correct identity, side and site, procedure, allergies, anesthesia, and medical concerns was performed. With the knee in some flexion, a midline incision was made overlying the knee. Full thickness skin flaps were raised once the extensor mechanism was encountered. These were raised medially and laterally. Any bleeding was controlled with electrocautery. Once the extensor mechanism was fully exposed, a medial parapatellar arthrotomy was performed in a flexed position. All bleeding from the arthrotomy and the geniculate arteries was coagulated. A medial subperiosteal peel was performed with electrocautery to the midcoronal plane. The fat pad was removed while keeping the patellar tendon protected. The anterior distal femur synovium was removed for later visualization. The ACL and PCL were resected and the anterior horn of the lateral meniscus was transected. The knee was then flexed with the patella everted. Using a step drill, and based on preoperative templating, the femoral canal was entered. This was done with a step drill without any difficulty. The intramedullary distal femoral cut guide was inserted, set to a 5 degree valgus cut and 9mm cut thickness. The distal femoral cut guide was then held in position and pinned. With the soft tissues protected, the distal cut was performed. This was passed over a few times to ensure a planar cut. I then turned attention to the tibia. The extramedullary guide was placed onto the leg. The distal aspect was slid medial to adjust for position of center of ankle and stay in line with shaft of the tibia. Approximately 3-5 degrees of posterior slope was kept in the proximal cutting guide. The center of the guide was aligned with the PCL. The stylus was used to assess cut thickness. The medial side, most involved side, was set for a 7mm cut, which corresponded to 9mm laterally. This was then held in position and pinned into place with 2 additional pins and a cross pin for stability. The medial and lateral collateral ligaments were protected and the cut was performed. With this completed, it was assessed and noted to be of appropriate dimensions. The guide was removed. A spacer block was inserted and the knee was brought into extension. The 6mm spacer block provided full extension, without hyperextension and with stability of both the medial and lateral collateral ligaments was assessed. The pins from the femur and the tibia were then removed. The distal femur was then sized. The anterior stylus was placed onto the lateral ridge of the anterior femur. This indicated a size 4 narrow femur. The external rotation of the guide was adjusted to 5 degrees to match the epicondylar axis, perpendicular to Rajiv?s line. The 4-in-1 cutting guide was the placed. The posterior medial femur cut was evaluated and appeared of good thickness. The spacer block was inserted underneath the cutting guide and stability was confirmed in 90 degrees of flexion. An jorge wing was used to confirm appropriate position of the anterior cut to avoid notching. This cutting guide was ensured to be flush on the cut surface and then pinned into place with headed pins. While protecting the soft tissues, quad tendon, and collateral ligaments, the anterior and posterior cuts were performed with a saw. The central two pins were removed and the posterior and anterior chamfers were cut next. The notch-cutting guide was placed. This was pinned to lateralize the femoral component as much as possible while keeping it flush on the cut surface. This was then pinned into position. A reciprocating saw was used to make the notch cut. A rasp smoothed the cut surfaces. The medial and lateral menisci were removed. A trial femoral component was then inserted, impacted down to the cut surfaces, and the lug holes were drilled. A provisional trial tibial component was placed and the knee was brought through range of motion. There was noted to be excellent extension and flexion. There was no significant instability. The patella was tracking without thumbs. A size 6mm polyethylene component provided the best range of motion and stability with less than 2mm gapping with medial and lateral stress and full extension without significant hyperextension. The tibial cut surface was fully exposed. The tibia was then sized as a 3. The tibia had been previously marked during trialing to correspond to the center of the tibial component to help with rotation. The trial was aligned to this fatmata, approximately rotated to the medial 1/3rd of the tibial tubercle. The trial was pinned into place. The tibia was prepared with a reamer and a keel punch and lug holes. The trial components were removed. The final components were opened on the back table. The periosteal and capsular tissues, especially posteriorly, around the knee were then systematically injected with a periarticular cocktail consisting of 246mg of Ropivacaine, 0.5mg of Epinephrine, 0.08mg of Clonidine, and 30mg of Ketorolac, diluted to 100cc - however, only 75cc was administered. Then, the knee components were placed. Starting with the tibial component, the tibia was subluxed anteriorly and the lug holes of the component were lined up. The tibia was then impacted with an impactor and mallet until the tibial component was in contact with the tibia. The final polyethylene component was inserted. Then, the femoral component was inserted. The lug holes were aligned and the component was impacted into position. The knee was irrigated with Surgiphor Betadine solution. This was allowed to sit in the knee for 3 minutes and then it was irrigated out with saline. After the cement had finally cured, approximately 15min, the clamp was removed from the patella and the knee was taken through range of motion. The patella was tracking with a no-thumbs technique. The capsule was then reapproximated with a No. 1 Vicryl at multiple locations. The capsule was finally closed with a No. 2 Stratafix, barbed suture. The second dosing of 1g TXA was started. Deep tissues were then reapproximated with 0 Vicryl and 2-0 Vicryl. The skin was closed with a running 3-0 Monocryl in a subcuticular fashion. This was reinforced with skin glue. A Mepilex silver dressing was applied along with a [id number] DESIRAE wrap. A CryoCuff was applied. Mel was transferred to the hospital bed without difficulty an suffering no apparent complication. Mel has a good prognosis. Physical therapy will start today and without restrictions, weight-bearing as tolerated. Aspirin 81mg BID will be used for DVT prophylaxis. Date of Procedure: 01/24/25
[2025-01-24] MEDS: ceFAZolin 2 GM/50 ML BAG IVPB (09:23)
[2025-01-24] MEDS: TRANEXAMIC ACID/SOD. CHL. 1,000 MG/100 ML BAG 600 MG IVPB (09:26)
--- NOTE | 2025-01-24 09:51 | W.ANESNERVE ---
Nerve Block Single Injection Procedure Date and Time Date Performed: 01/24/25 Procedure Start: 08:40 Location Where Procedure Performed Procedure Location: Day Surgery Unit Reason Performed: Postoperative Analgesia Requesting Provider: Jeison Fuller Timeout Performed Timeout Performed: Yes Monitoring Used ECG, Blood Pressure, SpO2 and See EMR for corresponding vital signs Sterility Sterility: Hand Hygiene, Surgical Cap, Surgical Mask, Sterile Gloves, Sterile Drape/Sheet and Chlorhexidine Sedation Given During Procedure Sedation Given (Indicate Dose Given): Versed IV Dose:: 2mg Patient Mental Status Patient Mental Status: Awake Nerve Block 1st Nerve Block: Laterality: Left Block Type: Adductor Canal Ultrasound Image Saved?: Yes Needle / Catheter Used: 80mm SonoPlex II Local Anesthetic Bolus (Indicate Dose Given): Lidocaine used for local infiltration of skin, Injected in 3-5ml increments after negative blood aspiration, Bupivacaine 0.25% Dose:: 7mL and Exparel Dose:: 7mL Additives (Indicate Dose Given): None Ultrasound: Used to fatmata site Nerve Stimulator: Supplement to Ultrasound use and No twitch or parasthesia noted < 0.5 mA Paresthesia: None Procedure Tolerated: No Complications Procedure Outcome: Successful Performed By: Fela Grider
[2025-01-24] MEDS: HYDROmorphone 2 MG/ML SYR IVP ×2 (11:30→11:40)
[2025-01-24] MEDS: Normal Saline 10 ML VIAL IJ (11:30)
[2025-01-24] MEDS: Normal Saline Flush 10 ML SYR IV (13:16)
--- NOTE | 2025-01-24 14:28 | W.ANESPOSTOP ---
Postoperative Evaluation Date, Time and Location Date Performed: 01/24/25 Time Performed: 14:25 Patient Location: Day Surgery Unit Vital Signs Most Recent Imported Vital Signs: Most Recent Vital Signs Temp Pulse Resp BP Pulse Ox 36.1 C L 87 16 138/62 97 01/24/25 14:09 01/24/25 14:09 01/24/25 14:09 01/24/25 14:09 01/24/25 14:09 Pain Score Most Recent Pain Score: Most Recent Pain Score Pain Level 0 01/24/25 14:09 Assessment Mental Status: Awake (Alert & Oriented to Patient Baseline) Airway and Respiratory Function: Patent airway with normal (patient baseline) respiratory exam Cardiovascular Function: Hemodynamically Stable Hydration Status: Adequately Hydrated Nausea & Vomiting: No Nausea or Vomiting (Previously treated) Pain: Pain is tolerable per patient Peripheral Nerve Block: Regional nerve block not resolved at time of post operative discharge
--- NOTE | 2025-01-24 14:31 | PT.INIE ---
PT Notes Visit Reasons: Left knee DJD Physical Therapy Day Surgery Initial Evaluation Date: [01/24/2025] Referring Doctor: [Dr. Fuller] PT Orders: PT CONSULT: [] Precautions: [Standard,WBAT] Patient Profile/Admitting Diagnosis: []Pt is a 74 yo female s/p Left TKA today 01/24/2025. Visit in surgical day post-op. Daughter present for transport to home. 1 step to get in home w/o rail, single floor living. PMHX: []Medical History (Updated 01/13/25 @ 09:56 by Livier Velásquez) Osteoporosis COPD (chronic obstructive pulmonary disease) Hx of lymphoma Per pt. states in remission - no treatment Closely watched [facility] Hyperlipidemia Surgical History (Updated 01/13/25 @ 09:56 by Livier Velásquez) History of cystocele with repairHx of tonsillectomy Hx of lymph node excision pt. unsure 2010Hx of vascular surgery H[place] coil embolization [place] Internal Carotid in neckH/O inguinal hernia repair Social History/Home Situation: Ground floor living, typically independnet, daughter staying tonight Equipment Owned/DME: RW Subjective: Pt. feels nauseous. Objective: Pt states she feels nauseous. General Observation: sitting up in bed with cryocuff and left knee wrapped in cris. Cooperative Mental Status: A and O x4 Pain: Little to no pain currently ROM: Right Upper Extremity: WNL Left Upper Extremity: WNL Right Lower Extremity: WNL Left Lower Extremity: 0-90 Strength: Right Upper Extremity: 4/5 Left Upper Extremity: 4/5 except wrist Right Lower Extremity: 5/5 Left Lower Extremity: Quad/ham 3/5 Sensation: decreased sensation left leg due to adductor block Bed Mobility/Transfers: Supine to sit indep Sit to stand indep Stand to sit indep with v/c once educated understands Bed to chair indep Gait: Ambulates with step thru gait pattern with RW, occasional loss of balance due to nerve block, with focus she can control. Balance: Static Sitting: normal Dynamic Sitting: normal Static Standing: good Dynamic Standing: fair, unsteady on left LE due to nerve block Special Tests: neg homans Mobility Limitations Standardized Measure [facility] AM-PAC 6 clicks Basic Mobility Inpatient Short Form: Raw Score:23 CMS Score:11% Informed Consent/Education: Patient instructed in purpose of PT consult. Packet containing HEP exercise protocol has been given to patient. Education and training on initial set of exercises that can be done at home have been completed with patient. Treatment: Treatment: Initial Evaluation: 92002 Therapeutic procedures (33061r[1]): Instruction in therapeutic exercises to develop strength and endurance, range of motion and flexibility. ? HEP instruction and review:? Provided skilled instruction in proper exercise performance: ?? Provided skilled manual cues to facilitate proper muscle recruitment and/or movement?pattern: issued standard HEP with addition of seated knee flexion and sustained extention. Therapeutic Activities - (96724 x[1]): instruction in dynamic activities with one on one patient contact by the provider to improve functional performance?as follows: ? [] Assessment: Patient presents with clinical signs and symptoms consistent with current/admitting diagnoses s/p left TKA that have resulted to mobility limitations, gait instability, generalized weakness, and impairment of motor control as demonstrated by the following impairment level findings: 1. Decreased strength to left knee major muscle groups 2. Impaired standing balance 3. Limitation of joint range of motion in left knee Impairments are contributing to the following functional limitations: 1. Inability to safely ambulate without assistive device 2. Increase completion time for mobility ADL performance 3. Increased fall risk Patient is assessed as a low complexity based on the following: History:74 -year-old female with impairment level findings, functional limitations, and past medical history as indicated above Examination: Demonstrable impairment in strength, balance, and mobility level with underlying impairments and functional limitations as documented above Presentation:evolving Decision Making: low Goals: N/A. PT evaluation and 1 treatment sessions only for functional mobility training using recommended AD and for HEP instruction. Plan of Care/Treatment Plan: N/A. PT evaluation and 1 treatment session only for functional mobility training using recommended AD and for HEP instruction. DISCHARGE RECOMMENDATIONS:Transport Home with daughter, use of RW and progression of HEP issued, will f/u with out patinet PT in 2 weeks. TREATMENT CODE/TIME:[id number] Thank you for the opportunity to participate in the care of this patient. Please sign an return this page within 30 days if you agree with the above POC. Thank you! Physician Signature Date [facility]
== END 2025-01-24 15:49 | disposition home or self-care (01) ==
PROVIDERS: PCP Family Medicine; Visit Provider Student in an Organized Health Care Education/Training Program
PROC: (CPT 27447; principal; 2025-01-24 09:30)
DX: M17.12 Unilateral primary osteoarthritis, left knee (principal); G89.18 Other acute postprocedural pain; M21.862 Other specified acquired deformities of left lower leg; M25.562 Pain in left knee; J44.9 Chronic obstructive pulmonary disease, unspecified; E78.5 Hyperlipidemia, unspecified; F41.9 Anxiety disorder, unspecified
CPT/HCPCS: 27447; 64447; 97110; 97161; 97530; C1776; J0665; J0666; J0690; J1100; J1171; J1790; J2003; J2250; J2371; J2401; J2404; J2405; J2704; J3010

== ENCOUNTER 2025-02-06 15:33 | Outpatient (CLI) | payer MEDICARE, SELFPAY ==
--- NOTE | 2025-02-06 10:15 | DI.RAD_ITS ---
Exam(s) XR KNEE LT 1V XR STANDING ALIGNMENT EXAM: XR STANDING ALIGNMENT CLINICAL HISTORY: 1ST POST OP S/P L TKA. TECHNIQUE: 2D digital imaging was performed. Standing AP views were performed from the pelvis throu gh the ankles. COMPARISON: CR XR STANDING ALIGNMENT from 01/13/2025 CR XR KNEE LT 1V from 01/13/2025 CR XR KNEE LT 1V from 02/06/2025 FINDINGS: BONES: No acute fracture is present. No bony destructive lesion is seen. Leg length discrepancy: No significant overall leg length discrepancy. JOINTS: Knees: Status post placement of a left total knee prosthesis. The alignment appears satisf actory. Right knee joint spaces are maintained. The ankle joints are unremarkable. The hip joints are unremarkable. SOFT TISSUE: Lizzy calcified uterine fibroid. IMPRESSION: Status post placement of a left total knee prosthesis. No significant leg length discrepancy. DATA REPOSITORY: RADIATION DOSE DELIVERED:
== END 2025-02-06 15:34 | disposition home or self-care (01) ==
LOC: DIORS 15:33
PROVIDERS: PCP Family Medicine; Referring Provider Family Medicine; Visit Provider Student in an Organized Health Care Education/Training Program
DX: Z96.652 Presence of left artificial knee joint (principal); Z47.1 Aftercare following joint replacement surgery
CPT/HCPCS: 99024; 73560; 77073

== ENCOUNTER → 2025-03-09 10:21 | Outpatient (BNVA) | payer MEDICARE, SELFPAY | PROVIDERS: PCP Family Medicine; Referring Provider Family Medicine | DX: Z47.1 Aftercare following joint replacement surgery (principal); Z96.652 Presence of left artificial knee joint | CPT/HCPCS: 99024 ==

== ENCOUNTER → 2025-04-17 10:47 | Outpatient (BNVA) | payer MEDICARE, SELFPAY | PROVIDERS: PCP Family Medicine; Referring Provider Family Medicine; Visit Provider Physician Assistant | DX: Z47.1 Aftercare following joint replacement surgery (principal); Z96.652 Presence of left artificial knee joint | CPT/HCPCS: 99024 ==

== ENCOUNTER 2025-07-10 16:57 | Emergency (ER) | payer MEDICARE, SELFPAY ==
[2025-07-10 17:01] VITALS: BP 197/76; PULSE 90; RESP 18; TEMP 36.8; O2SAT 96
--- NOTE | 2025-07-10 17:13 | W.ED.GENAD ---
Discharge Plan Disposition Patient Disposition: Home Condition: Stable Discharge Details Clinical Impression: Acquired female bladder prolapse Primary Care Provider: Johanna Larson ED Provider: Jack Floyd Home Meds and New Rx's Prescriptions: Continued lorazepam [Ativan] 1 mg tablet 1 mg PO QHS lovastatin 40 mg tablet 80 mg PO DAILY Patient Comments: 80mg acetaminophen 500 mg tablet 1,000 mg PO Q8H PRN Qty: 90 0RF Rx Instructions: Take two tablets up to every 8 hours as needed for pain cholecalciferol (vitamin D3) [D3 DOTS] 50 mcg (2,000 unit) tablet 2,000 unit PO DAILY ascorbic acid (vitamin C) [C-500] 500 mg tablet 500 mg PO DAILY aspirin [Adult Low Dose Aspirin] 81 mg tablet,delayed release (DR/EC) 81 mg PO DAILY Discharge Instructions Instructions: Cystocele and Rectocele Repair, Pelvic floor muscle exercises Additional Instructions: You were seen in the emergency department for likely bladder prolapse into your vaginal vault, I spoke with gynecology on-call they would like you to call the office and they will likely schedule you for next week. Please do some pelvic floor muscle exercises, purchase [id number] Azo to aid in symptomatic relief of your dysuria, there was no UTI on your urinalysis, stay well-hydrated and return for any emergent concerns. Referrals: [facility] [Provider Group] Johanna Larson [Primary Care Provider, Medicine] Discharge Data Discharge Date/Time-TO BE ENTERED AT DEPARTURE: 07/10/25 18:51 HPI General Date/Time Provider Initiated Documentation: 07/10/25 17:07. HPI Narrative: 75 year-old female presents to ED today by POV/ambulating with a chief complaint of having dysuria, frequency, and one episode of diarrhea with onset over the last couple days. Quality described as urinary frequency and irritation, and took a look at her vagina and feels like it may be bulging or look off, no radiation to vaginal bleeding, fever, severe pelvic pain, black/bloody diarrhea, abdominal pain, chest pain, shortness of breath, fever, vaginal discharge. Severity is described as mild to moderate. Palliating factors include nothing specific attempted. Provoking factors include nothing specific. Events leading up to the incident/Associated Symptoms: Patient has had a cystocele repair in the past, and has tried pessary as well. Patient not anticoagulated. Related Data Home Medications ?Medication ?Instructions ?Recorded ?Confirmed lorazepam 1 mg tablet (Ativan) 1 mg PO QHS 08/07/24 07/12/25 lovastatin 40 mg tablet 80 mg PO DAILY 08/22/24 07/12/25 ascorbic acid (vitamin C) 500 mg 500 mg PO DAILY 09/25/24 07/12/25 tablet (C-500) cholecalciferol (vitamin D3) 50 2,000 unit PO DAILY 09/25/24 07/12/25 mcg (2,000 unit) tablet (D3 DOTS) acetaminophen 500 mg tablet 1,000 mg (2 x 500 mg) PO Q8H PRN 01/24/25 07/12/25 pain #90 tabs aspirin 81 mg tablet,delayed 81 mg PO DAILY 07/10/25 07/12/25 release (Adult Low Dose Aspirin) Previous Rx's ?Medication ?Instructions ?Recorded acetaminophen 500 mg tablet 1,000 mg (2 x 500 mg) PO Q8H PRN 01/24/25 pain #90 tabs Allergies Allergy/AdvReac Type Severity Reaction Status Date / Time atorvastatin Allergy Other (See Verified 07/12/25 10:22 Comment) rosuvastatin Allergy Skin Rash Verified 07/12/25 10:22 General Stated Complaint: [facility] JEROD: 3 Review of Systems All systems reviewed & are unremarkable except as noted in HPI and below Exam Narrative Exam Narrative: GENERAL APPEARANCE: Well-nourished, non-toxic, awake and alert, atraumatic, no acute distress. SKIN: Warm, pink, dry, intact, without rashes/lesions/ulcerations. HEAD: Normocephalic, atraumatic, normal hair distribution for gender/age. EYES: Normal conjunctiva, no exudates on lids/lashes. ENT: Nares patent, no circumoral cyanosis, no facial swelling NECK: Supple, trachea midline, painless cervical ROM. LUNGS/CHEST: Non-labored respirations, normal A/P diameter, symmetrical expansion, no chest wall deformity HEART (CV/PV): Regular rate and rhythm without murmur, no peripheral edema, no JVD. ABDOMEN: Soft, non-distended, no guarding, no CVA tenderness to percussion. PELVIC: No severe tenderness with speculum exam, no discharge or blood present in vaginal vault, I do feel that the anterior wall is prolapsing into the vault likely cystocele MSK: Normal ROM, no swelling/deformity to bilateral UEs or LEs, moving all extremities without weakness, no cyanosis, spine midline without tenderness, normal curvature. NEURO: Mental Status AAOx4 - alert to person, place, time, events No facial droop, no forehead involvement. Motor: No focal weakness - strength 5/5 in bilateral UEs and LEs, proximal and distal, symmetric. Sensory: sensation intact to light touch globally. Gait normal: patient ambulated without ataxia into ED room. PSYCH: euthymic, cooperative, pleasant, appropriate speech Course Vital Signs Vital signs: Vital Signs Temperature 36.8 C 07/10/25 17:01 Pulse 90 07/10/25 17:01 Respiratory Rate 18 07/10/25 17:01 Blood Pressure 197/76 H 07/10/25 17:01 Pulse Oximetry 96 07/10/25 17:01 Temperature 36.8 C 07/10/25 17:01 Pulse 90 07/10/25 17:01 Respiratory Rate 18 07/10/25 17:01 Blood Pressure 197/76 H 07/10/25 17:01 Pulse Oximetry 96 07/10/25 17:01 Medical Decision Making This dictation utilizes [id number] dictation software and may contain unedited grammatical errors. 75 year-old female presents to ED today by POV/ambulating with a chief complaint of having dysuria, frequency, and one episode of diarrhea with onset over the last couple days. Quality described as urinary frequency and irritation, and took a look at her vagina and feels like it may be bulging or look off, no radiation to vaginal bleeding, fever, severe pelvic pain, black/bloody diarrhea, abdominal pain, chest pain, shortness of breath, fever, vaginal discharge. Severity is described as mild to moderate. Palliating factors include nothing specific attempted. Provoking factors include nothing specific. Events leading up to the incident/Associated Symptoms: Patient has had a cystocele repair in the past, and has tried pessary as well. Patients' medical history: History of cystocele, history of inguinal hernia repair. Family and social history: Noncontributory. Pertinent exam findings / vital signs include benign abdomen, benign cardiopulmonary exam, vital stable, speculum exam shows bladder prolapse into vaginal vault, no blood or discharge, no severe tenderness, no CVA tenderness to percussion. Differential / pathologies of concern include cystocele, pelvic prolapse, UTI. Diagnostic studies of: - UA shows no evidence of UTI. Interventions of: - Discussed with [facility] and they would be happy to follow-up with her. ED Course/Assessment/Plan: 75-year-old female with some dysuria and irritation with urination, feels that there is a bulging in the vaginal vault, she had all this happened after a bout of diarrhea it is possible that she reinjured an old cystocele repair and has some bladder prolapse, there is no evidence of UTI, no evidence of severe pelvic pain or other abnormality, discussed with [facility] and they will follow-up with the patient. Findings not consistent with UTI, PID, vaginal bleeding, ovarian cyst/torsion, renal colic. Disposition of Acquired Female Bladder Prolapse. Patient verbalized understanding of the plan and return to ED criteria and engaged in shared decision making. Medical Records Medical records reviewed: Yes I reviewed the patient's medical records. Lab Data Lab results reviewed: Yes I reviewed the patient's lab results. Labs: Laboratory Tests Range/Units 07/10/25 17:14 Urine Color (Yellow) Yellow Urine Clarity (Clear) Clear Urine pH (5-8) 6.0 Ur Specific [place] (1.005-1.025) <= 1.005 Urine Protein (Neg-Trace) mg/dL Negative Urine Ketones (Negative) mg/dL Negative Urine Blood (Negative) Small H Urine Nitrite (Negative) Negative Urine Bilirubin (Negative) Negative Urine Urobilinogen (Up to 0.2) mg/dL 0.2 Ur Leukocyte Esterase (Negative) Negative Urine RBC (0-2) HPF 3-5 H Urine WBC (0-5) HPF Negative Ur Epithelial Cells (Negative) HPF Negative Urine Crystals (Negative) HPF Negative Urine Bacteria (Negative) HPF Rare Urine Casts (Negative) LPF Negative Urine Mucus (Negative) Negative Ur Culture Indicated? 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 Ultrasound ordered Pelvic prolapse (Acute) Acquired female bladder prolapse (Acute) History of total left knee replacement (Acute 01/24/25) Closed fracture of left distal radius (Acute) Medical History (Updated 07/12/25 @ 11:01 by Lorie Harmon DO) Osteoporosis COPD (chronic obstructive pulmonary disease) Hx of lymphoma Per pt. states in remission - no treatment Closely watched - sees Oncology at [facility] Anxiety Hyperlipidemia Surgical History (Updated 01/24/25 @ 08:54 by Yony Welsh RN) History of cystocele with repair Hx of tonsillectomy Hx of lymph node excision pt. unsure 2009 Hx of vascular surgery Hx of coil embolization for cerebral aneurysm 2010 in [place], [place] Hx of cerebral aneurysm repair Internal Carotid in neck H/O inguinal hernia repair Social History Smoking/Tobacco Use Status: Former Tobacco Use Quit Date: 11/02/82 Smoking risk assessment performed?: Yes Alcohol Intake: never Drug use: Daily Substance use type: marijuana Details: 01/24/25: last used marijuana 2 weeks ago Housing: house Do you feel safe at home: Yes (lives alone) Do you feel safe in your relationship?: Yes History History 2 Para 2 Hx # Term Pregnancies 2 Multiple births Hx # Pregnancies Ectopic pregnancies AB induced Hx Number of Living Children 2 AB spontaneous Past Pregnancies Del. Date GA/Weeks # Preg Succ Route Wgt Sex Labor Lgth Anesthesia Location Prov Complic 09/29/74 Yes vaginal 3373.593 g Female [facility] 02/24/81 Yes vaginal 4195.729 g Male [place]
[2025-07-10 17:25] LABS: Glucose Negative (Negative)
[2025-07-10 17:34] LABS: WBC Negative HPF (0-5)
[2025-07-10 17:35] LABS: C & S Indicated? No
[2025-07-10 18:55] VITALS: BP 128/58; PULSE 64; RESP 18; TEMP 36.6; O2SAT 96
== END 2025-07-10 18:51 | disposition home or self-care (01) ==
PROVIDERS: Emergency Medicine; Emergency Provider Physician Assistant; PCP Family Medicine
DX: N81.10 Cystocele, unspecified (principal)
CPT/HCPCS: 99282; 81003; 81015; 99283

== ENCOUNTER 2025-07-31 02:50 | Outpatient (CLI) | payer MEDICARE, SELFPAY ==
--- NOTE | 2025-07-31 06:30 | DI.US_ITS ---
Exam(s) US SOFT TISS BUTTOCK/PERINEUM EXAM: US SOFT TISS BUTTOCK/PERINEUM CLINICAL HISTORY: Evaluate mass,perineal mass, h/o lymphoma,n90.89,z85.72. TECHNIQUE: Ultrasound was performed using standard protocol. COMPARISON: US POCUS EXAM from 01/24/2025 FINDINGS: Dedicated ultrasound examination of the area of clinical concern in the upper medial left thigh-groin area. Apparently there is a prior history of lymphoma in this patient. The finding in the area of clinical concern is a relatively well-circumscribed 2.3 x 1.1 x 3.1 cm isoechoic mass which has appearance of a probable benign lipoma. There is no lymphadenopathy in this region nor abnormal fluid collection. IMPRESSION: There is a 2.3 x 1.1 x 3.1 cm benign-appearing lipoma in the area of clinical concern. DATA REPOSITORY:
== END 2025-07-31 03:10 ==
LOC: DI 02:50
PROVIDERS: PCP Family Medicine; Visit Provider Obstetrics & Gynecology
DX: N90.89 Other specified noninflammatory disorders of vulva and perineum (principal); Z85.72 Personal history of non-Hodgkin lymphomas
CPT/HCPCS: 76857